=== PATIENT | male | born 1990 | race African-American/Black ===

== ENCOUNTER 2017-03-06 14:08 | Inpatient (IN) | payer MEDICARE, MEDICAID ==
--- NOTE | 2017-03-06 15:41 | ER Document Report ---
HPI - HPI Patient complains to provider of: fell and hurt right lower leg Onset: Just prior to arrival Onset/Duration: Sudden Quality of pain: Achy Pain Level: 2 Context: 27-year-old male that lives at [facility] was bending over to get the shrimp that fell on the ground and fell injuring his right lower leg. He is able to stand on the leg at the bedside. Associated Symptoms: None Exacerbated by: Walking Relieved by: Denies Similar symptoms previously: No Recently seen / treated by doctor: No - ROS ROS below otherwise negative: Yes Systems Reviewed and Negative: Yes All other systems reviewed and negative - CARDIOVASCULAR Cardiovascular: DENIES: Chest pain - REPRODUCTIVE Reproductive: DENIES: : - DERM Skin Color: Normal Past Medical History - General Information source: Patient - Social History Smoking Status: Never Smoker Chew tobacco use (# tins/day): No Frequency of alcohol use: None Drug Abuse: None Lives with: Other - [facility] Family History: Reviewed & Not Pertinent, Other Patient has suicidal ideation: No Patient has homicidal ideation: No - Past Medical History Cardiac Medical History: Reports: Hx Heart Murmur Pulmonary Medical History: Reports: Hx Pneumonia Neurological Medical History: Reports: Hx Cerebrovascular Accident - age 6, Hx Seizures Renal/ Medical History: Denies: Hx Peritoneal Dialysis Malignancy Medical History: Reports Other - Sickle cell GI Medical History: Reports: Hx Gastroesophageal Reflux Disease Psychiatric Medical History: Reports: Hx Anxiety, Hx Depression Past Surgical History: Reports: Hx Cholecystectomy, Hx Oral Surgery - reconstruction - Immunizations Immunizations up to date: Yes Hx Diphtheria, Pertussis, Tetanus Vaccination: No Hx Pneumococcal Vaccination: 08/05/12 Vertical Provider Document - CONSTITUTIONAL Agree With Documented VS: Yes Exam Limitations: No Limitations - INFECTION CONTROL TRAVEL OUTSIDE OF THE [place] IN LAST 30 DAYS: No - HEENT HEENT: Normocephalic - NECK Neck: Supple - RESPIRATORY O2 Sat by Pulse Oximetry: 94 - MUSCULOSKELETAL/EXTREMETIES Musculoskeletal/Extremeties: MAEW, FROM, Tender - Proximal right tibia. negative: Edema, Eccymosis Notes: No deformity - NEURO Level of Consciousness: Awake, Alert, Appropriate - DERM Integumentary: Warm, Dry, No Rash Course - Re-evaluation Re-evalutation: 03/06/17 16:47 X-ray is negative. His aunt called and I talked with her and said that he was okay and explained the fall and that the x-ray is negative. 03/06/17 16:47 - Vital Signs Vital signs: Temp Pulse Resp BP Pulse Ox 97.5 F 89 18 99/52 L 94 03/06/17 14:23 03/06/17 14:23 03/06/17 14:23 03/06/17 14:23 03/06/17 14:23 Discharge - Discharge Clinical Impression: right lower leg injury Condition: Good Disposition: HOME, SELF-CARE Instructions: Acetaminophen, Sprain ([facility]) Additional Instructions: to er any concerns the xray is negative Please complete the patient satisfaction survey if you get one, and return it.. If you do not receive a survey, then you can go to the [facility] website, [email or web address] and place your comments about your very good care. Thank you very much. It was a pleasure being your medical provider today. Referrals: RUMA RUTH MD [Primary Care Provider] - Follow up as needed
[2017-03-06] MEDS ORDERED: ACETAMINOPHEN 325 MG TABLET PO ONE (16:49)
[2017-03-06] MEDS ORDERED: IBUPROFEN 800 MG TABLET PO ONE (17:10)
[2017-03-06 18:54] LABS: HEMATOCRIT 18.7 % (37.9-51.0); HGB HCT DIFFERENCE 1.4; MEAN CORPUSCULAR HEMOGLOBIN 32.9 pg (27.0-33.4); MEAN CORPUSCULAR HGB CONC 35.7 g/dL (32.0-36.0); MEAN CORPUSCULAR VOLUME 92 fl (80-97); RED BLOOD COUNT 2.02 10^6/uL (4.35-5.55); RED CELL DISTRIBUTION WIDTH 25.2 % (11.5-14.0); WHITE BLOOD COUNT 22.4 10^3/uL (4.0-10.5)
[2017-03-06 19:13] LABS: ALANINE AMINOTRANSFERASE 55 U/L (21-72); ALBUMIN 4.3 g/dL (3.5-5.0); ALKALINE PHOSPHATASE 110 U/L (38-126); ANION GAP 12 (5-19); ASPARTATE AMINO TRANSFERASE 96 U/L (17-59); BILIRUBIN,DIRECT 1.6 mg/dL (0.0-0.4); BILIRUBIN,TOTAL 4.8 mg/dL (0.2-1.3); BLOOD UREA NITROGEN 18 mg/dL (7-20); CALCIUM 9.9 mg/dL (8.4-10.2); CARBON DIOXIDE 26 mmol/L (22-30); CHLORIDE 103 mmol/L (98-107); CREATININE RESULT 0.87 mg/dL (0.52-1.25); GLUCOSE 196 mg/dL (75-110); POTASSIUM 4.9 mmol/L (3.6-5.0); SODIUM 141.2 mmol/L (137-145)
[2017-03-06 19:14] LABS: BASOPHILS % (MANUAL) 0 % (0-2); EOSINOPHILS % (MANUAL) 0 % (0-6); LYMPHOCYTES % (MANUAL) 2 % (13-45); NUCLEATED RED BLOOD CELLS 1 /100 WBC (0); TOTAL CELLS COUNTED 100
[2017-03-06 19:16] LABS: ANISOCYTOSIS 2+; OVALOCYTES 2+; POIKILOCYTOSIS 3+; POLYCHROMASIA SLIGHT; TARGET CELLS 1+
[2017-03-06 19:18] LABS: HEMOGLOBIN 6.7 g/dL (13.5-17.0)
[2017-03-06] MEDS ORDERED: NORMAL SALINE 1000 ML 1,000 ML IV ONE (19:23)
[2017-03-06] MEDS ORDERED: NORMAL SALINE 250 ML IV PRN ×3 (19:24→19:49)
[2017-03-06] MEDS ORDERED: MORPHINE SULFATE 10 MG/ML INJ IV ONE ×2 (19:25→23:59)
[2017-03-06] MEDS ORDERED: LEVOFLOXACIN 500 MG/D5W RTU 500 MG/100 ML RTUPB IV ONE (23:00)
[2017-03-06] MEDS ORDERED: CEFEPIME INJ 1 GM VIAL IV PRN (23:30)
[2017-03-07] MEDS: OXYCODONE-ACETAMINOPHEN 5-325 MG TABLET PO PRN ×3 (05:46→21:21)
[2017-03-07] MEDS: LANSOPRAZOLE 30 MG TAB.RAP.DR PO SCH (05:46)
[2017-03-07] MEDS: ENOXAPARIN SODIUM INJ 40 MG/0.4 ML DISP.SYRIN SUBCUT SCH (08:21)
[2017-03-07] MEDS: CEFEPIME 1 GM/D5W RTU 1 GM/50 ML RTUPB IV SCH ×2 (09:10→21:22)
[2017-03-07 10:20] LABS: APPEARANCE,URINE CLEAR; BILIRUBIN,URINE NEGATIVE (NEGATIVE); GLUCOSE, URINE NEGATIVE (NEGATIVE); KETONES,URINE NEGATIVE (NEGATIVE); LEUKOCYTE ESTERASE,URINE NEGATIVE (NEGATIVE); NITRITE,URINE NEGATIVE (NEGATIVE); PROTEIN,URINE 30 mg/dL (NEGATIVE); URINE SPECIFIC GRAVITY 1.009; UROBILINOGEN,URINE NEGATIVE mg/dL (<2.0)
--- NOTE | 2017-03-07 10:39 | PDOC H&P ---
History of Present Illness Admission Date/PCP: 03/06/17 19:45 RUMA RUTH MD Patient complains of: Fall with right leg injury History of Present Illness: EMIL BARNES is a 27 year old male patient of Dr Ruth brought to the ED after incident of fall will trying to get shrimp at [facility]. Patient caregiver reported difficulty with standing on the right leg due to pain. His initial evaluation in the ED with radiographic assessment was not revealing of any acute fracture but patient continue to demonstrate ambulatory difficulty. His CBC revealed significant anemia with hemoglobin of . 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 Past Medical History Cardiac Medical History: Reports: Heart Murmur Pulmonary Medical History: Reports: Pneumonia Neurological Medical History: Reports: Seizures Malignancy Medical History: Reports: Other - Sickle cell GI Medical History: Reports: Gastroesophageal Reflux Disease Psychiatric Medical History: Reports: Depression Hematology: Reports: Anemia - Sickle Cell, Sickle Cell Disease, Bleeding Tendencies Denies: Hemophilia Past Surgical History Past Surgical History: Reports: Cholecystectomy Denies: Appendectomy, Tonsillectomy Social History Lives with: Other - [facility] Smoking Status: Never Smoker Frequency of Alcohol Use: None Hx Recreational Drug Use: No Drugs: None Hx Prescription Drug Abuse: No Family History Family History: Reviewed & Not Pertinent, Other Parental Family History Reviewed: Yes Children Family History Reviewed: Yes Sibling(s) Family History Reviewed.: Yes Medication/Allergy Home Medications: No Home Medications 03/07/17 Allergies/Adverse Reactions: No Known Drug Allergies Allergy (Unknown, Verified 04/02/15 13:14) mayonaise Allergy (Uncoded 02/17/14 09:13) Physical Exam Vital Signs: Temp Pulse Resp BP Pulse Ox 97.5 F 89 18 99/52 L 96 03/06/17 14:23 03/06/17 14:23 03/06/17 14:23 03/06/17 14:23 03/06/17 20:50 General appearance: PRESENT: no acute distress, cooperative, disheveled Head exam: PRESENT: atraumatic, normocephalic Eye exam: PRESENT: conjunctiva pink, EOMI, PERRLA. ABSENT: scleral icterus Ear exam: PRESENT: normal external ear exam Mouth exam: PRESENT: moist Teeth exam: PRESENT: dental caries, poor dentation Throat exam: ABSENT: post pharyngeal erythema, tonsillar erythema, tonsillar exudate, tonsillogmegaly, other Neck exam: PRESENT: full ROM. ABSENT: carotid bruit, JVD, lymphadenopathy, thyromegaly Respiratory exam: PRESENT: clear to auscultation ishan Cardiovascular exam: PRESENT: RRR. ABSENT: diastolic murmur, rubs, systolic murmur Pulses: PRESENT: normal dorsalis pedis pul, +2 pedal pulses bilateral Vascular exam: PRESENT: normal capillary refill GI/Abdominal exam: PRESENT: normal bowel sounds, soft. ABSENT: distended, guarding, mass, organolmegaly, rebound, tenderness Rectal exam: PRESENT: deferred Musculoskeletal exam: PRESENT: deformity - left extremities, related to CVA incident with some degree of contrature deformity Neurological exam: PRESENT: alert, awake, oriented to situation, abnormal gait - with inability to stand and walk at bedside during ED evaluation, CN II-XII grossly intact, motor sensory deficit Psychiatric exam: PRESENT: appropriate affect, normal mood. ABSENT: homicidal ideation, suicidal ideation Skin exam: PRESENT: dry, intact, warm. ABSENT: cyanosis, rash Results Laboratory Results: See [facility] for details. These were reviewed and form significant aspect of my medical decision making. Impressions: Tibia/Fibula X-Ray 03/06/17 15:39 IMPRESSION: NEGATIVE STUDY OF THE RIGHT TIBIA AND FIBULA. NO RADIOGRAPHIC EVIDENCE OF ACUTE INJURY. Femur X-Ray 03/06/17 17:10 IMPRESSION: NEGATIVE STUDY OF THE RIGHT FEMUR. NO RADIOGRAPHIC EVIDENCE OF ACUTE INJURY. Pelvis X-Ray 03/06/17 17:10 IMPRESSION: NEGATIVE STUDY OF THE PELVIS. Assessment & Plan - Diagnosis (1) Sickle cell hemolytic anemia Qualifiers: Sickle-cell associated disorders: with unspecified crisis Qualified Code(s): D57.00 - Hb-SS disease with crisis, unspecified; D57.0 - Hb-SS disease with crisis Is this a current diagnosis for this admission?: YesPlan: See covering admitting physician orders. Patient will be transfused 3 units of PRBC. (2) Fall due to stumbling Qualifiers: Encounter type: initial encounter Qualified Code(s): W01.0XXA - Fall on same level from slipping, tripping and stumbling without subsequent striking against object, initial encounter Is this a current diagnosis for this admission?: YesPlan: See covering admitting physician orders. (3) Unsteady gait Is this a current diagnosis for this admission?: YesPlan: See covering admitting physician orders. (4) History of seizure disorder Is this a current diagnosis for this admission?: YesPlan: Continue pre-admission seizure medication with seizure precautions. (5) History of CVA with residual deficit Is this a current diagnosis for this admission?: YesPlan: Continue pre-admission seizure medication with seizure precautions. (6) Sickle-cell disease with pain Is this a current diagnosis for this admission?: YesPlan: See covering admitting physician orders. Patient will be on oral pain medication management. If this approach is not adequately controlling his pain I will consider intravenous pain medication administration. - Time Time Spent: 50 to 70 Minutes Medications reviewed and adjusted accordingly: Yes Anticipated discharge: Other - [facility] Within: Other - Inpatient Certification Based on my medical assessment, after consideration of the patient's comorbidities, presenting symptoms, or acuity I expect that the services needed warrant INPATIENT care.: Yes I certify that my determination is in accordance with my understanding of Medicare's requirements for reasonable and necessary INPATIENT services [42 CFR 412.3e].: Yes Medical Necessity: Need Close Monitoring Due to Risk of Patient Decompensation, Need For IV Fluids, Need For Continuous Telemetry Monitoring, Need for IV Antibiotics, Risk of Complication if Not Cared For in Hospital Post Hospital Care: D/C or Transfer Summary - Plan Summary Plan Summary: See covering admitting physician orders.
--- NOTE | 2017-03-07 10:48 | PDOC PROGRESS REPORT ---
Subjective Progress Note for:: 03/07/17 Subjective:: Patient denied any chest pain or difficulty with breathing. On second unit of PRBC transfusion. No reported fever or chills. Pain is fairly controlled on current medication management. Patient reported that he can walk! Remain on IV Cefepime and Levofloxacin management due to concern about occult infection process. Physical Exam Vital Signs: Temp Pulse Resp BP Pulse Ox 99.3 F 85 18 124/74 98 03/07/17 10:26 03/07/17 10:26 03/07/17 10:26 03/07/17 10:26 03/07/17 10:26 Intake & Output 03/06/17 03/07/17 03/08/17 06:59 06:59 06:59 Intake Total 580 400 Output Total 0 Balance 580 400 Weight 60.8 kg Physical Exam: General appearance: PRESENT: no acute distress, cooperative, disheveled Head exam: PRESENT: atraumatic, normocephalic Eye exam: PRESENT: conjunctiva pink, EOMI, PERRLA. ABSENT: scleral icterus Mouth exam: PRESENT: moist Throat exam: ABSENT: post pharyngeal erythema, tonsillar erythema, tonsillar exudate, tonsillogmegaly, other Neck exam: PRESENT: full ROM. ABSENT: carotid bruit, JVD, lymphadenopathy, thyromegaly Respiratory exam: PRESENT: clear to auscultation ishan Cardiovascular exam: PRESENT: RRR. ABSENT: diastolic murmur, rubs, systolic murmur GI/Abdominal exam: PRESENT: normal bowel sounds, soft. ABSENT: distended, guarding, mass, organomegaly, rebound, tenderness Musculoskeletal exam: PRESENT: deformity - left extremities, related to CVA incident with some degree of contrature deformity Neurological exam: PRESENT: alert, awake, oriented to situation, abnormal gait - with inability to stand and walk at bedside during ED evaluation, CN II-XII grossly intact, motor sensory deficit Psychiatric exam: PRESENT: appropriate affect, normal mood. ABSENT: homicidal ideation, suicidal ideation Skin exam: PRESENT: dry, intact, warm. ABSENT: cyanosis, rash Results Laboratory Results: 03/07/17 09:45 Urine Color YELLOW Urine Appearance CLEAR Urine pH 6.0 Ur Specific [place] 1.009 Urine Protein 30 H Urine Glucose (UA) NEGATIVE Urine Ketones NEGATIVE Urine Blood MODERATE H Urine Nitrite NEGATIVE Ur Leukocyte Esterase NEGATIVE Urine WBC (Auto) 2 Urine RBC (Auto) 0 Impressions: Tibia/Fibula X-Ray 03/06/17 15:39 IMPRESSION: NEGATIVE STUDY OF THE RIGHT TIBIA AND FIBULA. NO RADIOGRAPHIC EVIDENCE OF ACUTE INJURY. Femur X-Ray 03/06/17 17:10 IMPRESSION: NEGATIVE STUDY OF THE RIGHT FEMUR. NO RADIOGRAPHIC EVIDENCE OF ACUTE INJURY. Pelvis X-Ray 03/06/17 17:10 IMPRESSION: NEGATIVE STUDY OF THE PELVIS. Assessment & Plan - Diagnosis (1) Sickle cell hemolytic anemia Qualifiers: Sickle-cell associated disorders: with unspecified crisis Qualified Code(s): D57.00 - Hb-SS disease with crisis, unspecified; D57.0 - Hb-SS disease with crisis Is this a current diagnosis for this admission?: Yes (2) Fall due to stumbling Qualifiers: Encounter type: initial encounter Qualified Code(s): W01.0XXA - Fall on same level from slipping, tripping and stumbling without subsequent striking against object, initial encounter Is this a current diagnosis for this admission?: Yes (3) Unsteady gait Is this a current diagnosis for this admission?: YesPlan: Request for physical therapy evaluation for ambulatory safety. (4) History of seizure disorder Is this a current diagnosis for this admission?: Yes (5) History of CVA with residual deficit Is this a current diagnosis for this admission?: Yes (6) Sickle-cell disease with pain Is this a current diagnosis for this admission?: Yes (7) Probable sepsis Is this a current diagnosis for this admission?: YesPlan: Continue IV Cefepime and Levofloxacin coverage. Follow up on urine and blood culture findings. - Time Time Spent with patient: 25-34 minutes Medications reviewed and adjusted accordingly: Yes Anticipated discharge: Other Within: Other - Inpatient Certification Medical Necessity: Need Close Monitoring Due to Risk of Patient Decompensation, Need For IV Fluids, Need For Continuous Telemetry Monitoring, Need for Pain Control, Need for IV Antibiotics, Risk of Complication if Not Cared For in Hospital Post Hospital Care: D/C or Transfer Summary - Plan Summary Plan Summary: Follow up on post transfusion CBC.
[2017-03-07 12:23] LABS: HEMATOCRIT 28.7 % (37.9-51.0); HGB HCT DIFFERENCE 1.9; MEAN CORPUSCULAR HEMOGLOBIN 31.3 pg (27.0-33.4); MEAN CORPUSCULAR HGB CONC 35.6 g/dL (32.0-36.0); RED BLOOD COUNT 3.26 10^6/uL (4.35-5.55); RED CELL DISTRIBUTION WIDTH 21.3 % (11.5-14.0); WHITE BLOOD COUNT 19.2 10^3/uL (4.0-10.5)
[2017-03-07 12:33] LABS: ALANINE AMINOTRANSFERASE 57 U/L (21-72); ALBUMIN 4.5 g/dL (3.5-5.0); ALKALINE PHOSPHATASE 97 U/L (38-126); ANION GAP 13 (5-19); ASPARTATE AMINO TRANSFERASE 86 U/L (17-59); BILIRUBIN,DIRECT 1.3 mg/dL (0.0-0.4); BILIRUBIN,TOTAL 5.2 mg/dL (0.2-1.3); BLOOD UREA NITROGEN 15 mg/dL (7-20); CARBON DIOXIDE 24 mmol/L (22-30); CHLORIDE 103 mmol/L (98-107); CREATININE RESULT 0.89 mg/dL (0.52-1.25); GLUCOSE 110 mg/dL (75-110); POTASSIUM 5.3 mmol/L (3.6-5.0); TOTAL PROTEIN 7.9 g/dL (6.3-8.2)
[2017-03-07 12:35] LABS: BASOPHILS % (MANUAL) 0 % (0-2); EOSINOPHILS % (MANUAL) 1 % (0-6); LYMPHOCYTES % (MANUAL) 13 % (13-45); TOTAL CELLS COUNTED 100
[2017-03-07 12:38] LABS: ANISOCYTOSIS 2+; HELMET CELLS SLIGHT; HOWELL-JOLLY BODIES PRESENT; OVALOCYTES 2+; POIKILOCYTOSIS 3+; POLYCHROMASIA SLIGHT; TARGET CELLS SLIGHT
[2017-03-07 12:40] LABS: HEMOGLOBIN 10.2 g/dL (13.5-17.0); MEAN CORPUSCULAR VOLUME 88 fl (80-97)
[2017-03-07] MEDS: NORMAL SALINE 1000 ML 1,000 ML IV PRN (14:01)
[2017-03-07 16:00] LABS: HEMOGLOBIN 10.5 g/dL (13.5-17.0); HGB HCT DIFFERENCE 1.5; MEAN CORPUSCULAR HEMOGLOBIN 30.7 pg (27.0-33.4); MEAN CORPUSCULAR HGB CONC 34.9 g/dL (32.0-36.0); MEAN CORPUSCULAR VOLUME 88 fl (80-97); RED BLOOD COUNT 3.42 10^6/uL (4.35-5.55); RED CELL DISTRIBUTION WIDTH 21.2 % (11.5-14.0); WHITE BLOOD COUNT 19.1 10^3/uL (4.0-10.5)
[2017-03-07 16:21] LABS: BASOPHILS % (MANUAL) 1 % (0-2); EOSINOPHILS % (MANUAL) 0 % (0-6); LYMPHOCYTES % (MANUAL) 8 % (13-45); NUCLEATED RED BLOOD CELLS 4 /100 WBC (0); TOTAL CELLS COUNTED 100
[2017-03-07 16:22] LABS: ANISOCYTOSIS 2+; OVALOCYTES 2+; POIKILOCYTOSIS 3+
[2017-03-07 16:23] LABS: HELMET CELLS SLIGHT; HOWELL-JOLLY BODIES PRESENT; POLYCHROMASIA SLIGHT; TARGET CELLS SLIGHT
[2017-03-07] MEDS ORDERED: LEVOFLOXACIN 500 MG/D5W RTU 500 MG/100 ML RTUPB IV SCH (22:00)
[2017-03-08] MEDS: NORMAL SALINE 1000 ML 1,000 ML IV PRN ×2 (02:36→13:36)
[2017-03-08] MEDS: LANSOPRAZOLE 30 MG TAB.RAP.DR PO SCH (06:02)
[2017-03-08] MEDS: ENOXAPARIN SODIUM INJ 40 MG/0.4 ML DISP.SYRIN SUBCUT SCH (08:14)
[2017-03-08] MEDS: CEFEPIME 1 GM/D5W RTU 1 GM/50 ML RTUPB IV SCH ×2 (09:49→21:52)
[2017-03-08] MEDS: OXYCODONE-ACETAMINOPHEN 5-325 MG TABLET PO PRN ×3 (09:53→19:46)
--- NOTE | 2017-03-08 19:17 | PDOC PROGRESS REPORT ---
Subjective Progress Note for:: 03/08/17 Subjective:: He was admitted because of severe anemia in the setting of sickle cell disease, he apparently could not stand on his right leg, he was seen by the bedside examine ,he is tender on the right knee area, MRI of the knee will be requested Physical Exam Vital Signs: Temp Pulse Resp BP Pulse Ox 98.3 F 97 18 129/71 H 96 03/08/17 16:40 03/08/17 16:40 03/08/17 16:40 03/08/17 16:40 03/08/17 16:40 Intake & Output 03/07/17 03/08/17 03/09/17 06:59 06:59 06:59 Intake Total 3806 474 Output Total 1300 600 Balance 2506 -126 General appearance: PRESENT: no acute distress Eye exam: PRESENT: PERRLA Respiratory exam: PRESENT: clear to auscultation ishan Cardiovascular exam: PRESENT: +S1, +S2 GI/Abdominal exam: PRESENT: soft Results Laboratory Results: 03/07/17 15:50 03/07/17 12:05 Impressions: Tibia/Fibula X-Ray 03/06/17 15:39 IMPRESSION: NEGATIVE STUDY OF THE RIGHT TIBIA AND FIBULA. NO RADIOGRAPHIC EVIDENCE OF ACUTE INJURY. Femur X-Ray 03/06/17 17:10 IMPRESSION: NEGATIVE STUDY OF THE RIGHT FEMUR. NO RADIOGRAPHIC EVIDENCE OF ACUTE INJURY. Pelvis X-Ray 03/06/17 17:10 IMPRESSION: NEGATIVE STUDY OF THE PELVIS. Chest X-Ray 03/07/17 00:00 IMPRESSION: NO SIGNIFICANT RADIOGRAPHIC FINDING IN THE CHEST. Assessment & Plan - Diagnosis (1) Fall due to stumbling Qualifiers: Encounter type: initial encounter Qualified Code(s): W01.0XXA - Fall on same level from slipping, tripping and stumbling without subsequent striking against object, initial encounter Is this a current diagnosis for this admission?: Yes (2) Hemolytic anemia Qualifiers: Hemolytic anemia type: other hemoglobinopathy Qualified Code(s): D58.2 - Other hemoglobinopathies Is this a current diagnosis for this admission?: Yes (3) Sickle cell anemia Qualifiers: Sickle-cell associated disorders: with unspecified crisis Qualified Code(s): D57.00 - Hb-SS disease with crisis, unspecified; D57.0 - Hb-SS disease with crisis Is this a current diagnosis for this admission?: Yes
[2017-03-08] MEDS: LEVOFLOXACIN 500 MG TABLET PO SCH (21:52)
[2017-03-09] MEDS: LANSOPRAZOLE 30 MG TAB.RAP.DR PO SCH (05:06)
[2017-03-09] MEDS: OXYCODONE-ACETAMINOPHEN 5-325 MG TABLET PO PRN ×3 (06:48→22:05)
[2017-03-09] MEDS: ENOXAPARIN SODIUM INJ 40 MG/0.4 ML DISP.SYRIN SUBCUT SCH (09:35)
[2017-03-09] MEDS: CEFEPIME 1 GM/D5W RTU 1 GM/50 ML RTUPB IV SCH ×2 (09:36→22:05)
[2017-03-09] MEDS: NORMAL SALINE 1000 ML 1,000 ML IV PRN (17:58)
[2017-03-09] MEDS: LEVOFLOXACIN 500 MG TABLET PO SCH (22:05)
[2017-03-10] MEDS: OXYCODONE-ACETAMINOPHEN 5-325 MG TABLET PO PRN (03:25)
[2017-03-10] MEDS: LANSOPRAZOLE 30 MG TAB.RAP.DR PO SCH (04:59)
[2017-03-10] MEDS: NORMAL SALINE 1000 ML 1,000 ML IV PRN ×2 (04:59→16:02)
[2017-03-10] MEDS: ENOXAPARIN SODIUM INJ 40 MG/0.4 ML DISP.SYRIN SUBCUT SCH (08:00)
[2017-03-10] MEDS: CEFEPIME 1 GM/D5W RTU 1 GM/50 ML RTUPB IV SCH ×2 (09:40→21:09)
--- NOTE | 2017-03-10 16:26 | PDOC DISCHARGE SUMMARY ---
General - Admit/Disc Date/PCP Admission Date/Primary Care Provider: 03/07/17 10:48 RUMA RUTH MD Discharge Date: 03/10/17 - Discharge Diagnosis (1) Fall due to stumbling Is this a current diagnosis for this admission?: Yes (2) Hemolytic anemia Is this a current diagnosis for this admission?: Yes (3) Sickle cell anemia Is this a current diagnosis for this admission?: Yes - Additional Information Resuscitation Status: Full Code Discharge Diet: As Tolerated Discharge Activity: Activity As Tolerated Home Medications: No Home Medications 03/07/17 History of Present Illness History of Present Illness: EMIL BARNES is a 27 year old male he presented to the hospital because of difficulty standing and knee pain on it was found to have severe anemia in the setting of sickle cell disease Hospital Course Hospital Course: He was transfused with packed red blood cells because of severe anemia, MRI of the leg and the knee was done it was negative Physical Exam Vital Signs: Temp Pulse Resp BP Pulse Ox 97.3 F 79 15 112/68 100 03/10/17 12:06 03/10/17 12:06 03/10/17 12:06 03/10/17 12:06 03/10/17 12:06 Intake & Output 03/09/17 03/10/17 03/11/17 06:59 06:59 06:59 Intake Total 3504 2963 420 Output Total 1625 1425 400 Balance 1879 1538 20 General appearance: PRESENT: no acute distress Eye exam: PRESENT: PERRLA Respiratory exam: PRESENT: clear to auscultation ishan Cardiovascular exam: PRESENT: +S1, +S2 GI/Abdominal exam: PRESENT: soft Neurological exam: PRESENT: alert Results Laboratory Results: 03/07/17 15:50 03/07/17 12:05 Impressions: Tibia/Fibula X-Ray 03/06/17 15:39 IMPRESSION: NEGATIVE STUDY OF THE RIGHT TIBIA AND FIBULA. NO RADIOGRAPHIC EVIDENCE OF ACUTE INJURY. Femur X-Ray 03/06/17 17:10 IMPRESSION: NEGATIVE STUDY OF THE RIGHT FEMUR. NO RADIOGRAPHIC EVIDENCE OF ACUTE INJURY. Pelvis X-Ray 03/06/17 17:10 IMPRESSION: NEGATIVE STUDY OF THE PELVIS. Chest X-Ray 03/07/17 00:00 IMPRESSION: NO SIGNIFICANT RADIOGRAPHIC FINDING IN THE CHEST. Lower Extremity MRI 03/08/17 20:45 IMPRESSION: No acute or suspicious findings. Bone marrow reconversion consistent with Sickle Cell Anemia.
--- NOTE | 2017-03-10 16:35 | PDOC DISCHARGE SUMMARY ---
General - Admit/Disc Date/PCP Admission Date/Primary Care Provider: 03/07/17 10:48 RUMA RUTH MD Discharge Date: 03/10/17 - Discharge Diagnosis (1) Hemolytic anemia Is this a current diagnosis for this admission?: Yes (2) Fall due to stumbling Is this a current diagnosis for this admission?: Yes (3) Sickle cell anemia Is this a current diagnosis for this admission?: Yes (4) Leukocytosis (leucocytosis) Is this a current diagnosis for this admission?: Yes - Additional Information Resuscitation Status: Full Code Discharge Diet: As Tolerated Discharge Activity: Activity As Tolerated Home Medications: Aspirin [Ecotrin 81 mg EC Tablet] 81 mg PO QID 03/10/17 Cholecalciferol (Vitamin D3) [Vitamin D3] 1,000 unit PO DAILY 03/10/17 Deferasirox [Exjade] 1,500 mg PO DAILY 03/10/17 Folic Acid 1 mg PO DAILY 03/10/17 Hydroxyurea [Hydroxyurea] 500 mg PO DAILY 03/10/17 Levetiracetam [Keppra] 1,000 mg PO BID 03/10/17 Magnesium Oxide 800 mg PO DAILY 03/10/17 Tamsulosin HCl [Tamsulosin HCl] 0.4 mg PO DAILY 03/10/17 History of Present Illness History of Present Illness: EMIL BARNES is a 27 year old male he presented to the hospital because of difficulty standing and knee pain on it was found to have severe anemia in the setting of sickle cell disease Hospital Course Hospital Course: He came emergency room from assisted living facility because he has pain on standing he was found to be anemic with leukocytosis, the source of the leukocytosis is not clear, he was empirically treated with IV antibiotic for presumed infection, no pathogen was isolated he also complained of pain in the leg and MRI of the leg was done which was negative. He was transfused with 2 units of packed red blood cells on admission hemoglobin was 6000. He had leukocytosis, he was treated empirically with IV antibiotic it was assumed that the etiology of the leukocytosis is infection, no specific pathogen was identified during the course of hospital stay, but the leukocytosis improved and is now normal white cell on discharge. Physical Exam Vital Signs: Temp Pulse Resp BP Pulse Ox 97.9 F 83 16 122/67 100 03/10/17 16:02 03/10/17 16:02 03/10/17 16:02 03/10/17 16:02 03/10/17 16:02 Intake & Output 03/09/17 03/10/17 03/11/17 06:59 06:59 06:59 Intake Total 3504 2963 420 Output Total 1625 1425 400 Balance 1879 1538 20 General appearance: PRESENT: no acute distress Eye exam: PRESENT: PERRLA Respiratory exam: PRESENT: clear to auscultation ishan Cardiovascular exam: PRESENT: +S1, +S2 GI/Abdominal exam: PRESENT: soft Neurological exam: PRESENT: alert Results Laboratory Results: 03/07/17 15:50 03/07/17 12:05 Impressions: Tibia/Fibula X-Ray 03/06/17 15:39 IMPRESSION: NEGATIVE STUDY OF THE RIGHT TIBIA AND FIBULA. NO RADIOGRAPHIC EVIDENCE OF ACUTE INJURY. Femur X-Ray 03/06/17 17:10 IMPRESSION: NEGATIVE STUDY OF THE RIGHT FEMUR. NO RADIOGRAPHIC EVIDENCE OF ACUTE INJURY. Pelvis X-Ray 03/06/17 17:10 IMPRESSION: NEGATIVE STUDY OF THE PELVIS. Chest X-Ray 03/07/17 00:00 IMPRESSION: NO SIGNIFICANT RADIOGRAPHIC FINDING IN THE CHEST. Lower Extremity MRI 03/08/17 20:45 IMPRESSION: No acute or suspicious findings. Bone marrow reconversion consistent with Sickle Cell Anemia.
[2017-03-10 17:38] LABS: ABSOLUTE EOSINOPHILS # (AUTO) 0.4 10^3/uL (0.0-0.6); ABSOLUTE LYMPHOCYTES (AUTO) 1.4 10^3/uL (0.5-4.7); ABSOLUTE NEUT (AUTO) 8.2 10^3/uL (1.7-8.2); BASOPHILS % (AUTO) 0.3 % (0-2); HEMATOCRIT 24.2 % (37.9-51.0); HEMOGLOBIN 8.1 g/dL (13.5-17.0); HGB HCT DIFFERENCE 0.1; LYMPHOCYTES % (AUTO) 11.8 % (13-45); MEAN CORPUSCULAR HEMOGLOBIN 31.3 pg (27.0-33.4); MEAN CORPUSCULAR HGB CONC 33.5 g/dL (32.0-36.0); MONOCYTES % (AUTO) 16.4 % (3-13); RED BLOOD COUNT 2.59 10^6/uL (4.35-5.55); RED CELL DISTRIBUTION WIDTH 20.7 % (11.5-14.0); SEGMENTED NEUTROPHILS % (AUTO) 68.5 % (42-78); WHITE BLOOD COUNT 11.9 10^3/uL (4.0-10.5)
[2017-03-10 17:59] LABS: ALANINE AMINOTRANSFERASE 48 U/L (21-72); ALBUMIN 3.1 g/dL (3.5-5.0); ALKALINE PHOSPHATASE 89 U/L (38-126); ANION GAP 9 (5-19); ASPARTATE AMINO TRANSFERASE 52 U/L (17-59); BILIRUBIN,DIRECT 1.1 mg/dL (0.0-0.4); BILIRUBIN,TOTAL 2.9 mg/dL (0.2-1.3); BLOOD UREA NITROGEN 15 mg/dL (7-20); CARBON DIOXIDE 25 mmol/L (22-30); CHLORIDE 112 mmol/L (98-107); CREATININE RESULT 0.59 mg/dL (0.52-1.25); GLUCOSE 97 mg/dL (75-110); POTASSIUM 4.1 mmol/L (3.6-5.0); SODIUM 145.7 mmol/L (137-145); TOTAL PROTEIN 6.1 g/dL (6.3-8.2)
[2017-03-10 18:09] LABS: MEAN CORPUSCULAR VOLUME 94 fl (80-97)
[2017-03-10] MEDS: LEVOFLOXACIN 500 MG TABLET PO SCH (21:08)
[2017-03-11] MEDS: NORMAL SALINE 1000 ML 1,000 ML IV PRN (03:00)
[2017-03-11] MEDS: LANSOPRAZOLE 30 MG TAB.RAP.DR PO SCH (05:15)
[2017-03-11] MEDS: ENOXAPARIN SODIUM INJ 40 MG/0.4 ML DISP.SYRIN SUBCUT SCH (07:45)
[2017-03-11 08:02] VITALS: BP 106/60
[2017-03-11] MEDS: OXYCODONE-ACETAMINOPHEN 5-325 MG TABLET PO PRN (08:20)
[2017-03-11] MEDS: CEFEPIME 1 GM/D5W RTU 1 GM/50 ML RTUPB IV SCH (09:15)
== END 2017-03-11 10:36 | DRG 812 ==
LOC: ER 14:08 → EH 19:45 → UNDOADMOB 19:45 → EH 20:04 → 5 22:10 → OBSVTOIN 03-07 10:48
PROVIDERS: ADMIT Internal Medicine; ATTEND Internal Medicine
PROC: 30233N1 Transfusion of Nonautologous Red Blood Cells into Peripheral Vein, Percutaneous Approach (ICD-10-PCS; principal; 2017-03-07)
DX: D57.00 Hb-SS disease with crisis, unspecified (principal); I69.354 Hemiplegia and hemiparesis following cerebral infarction affecting left non-dominant side; G40.909 Epilepsy, unspecified, not intractable, without status epilepticus; D59.9 Acquired hemolytic anemia, unspecified; F79 Unspecified intellectual disabilities; D58.9 Hereditary hemolytic anemia, unspecified; K21.9 Gastro-esophageal reflux disease without esophagitis; F32.9 Major depressive disorder, single episode, unspecified; Z90.49 Acquired absence of other specified parts of digestive tract; R26.81 Unsteadiness on feet; S89.91XA Unspecified injury of right lower leg, initial encounter; W18.30XA Fall on same level, unspecified, initial encounter; Z91.018 Allergy to other foods; D72.829 Elevated white blood cell count, unspecified; Y92.129 Unspecified place in nursing home as the place of occurrence of the external cause
CPT/HCPCS: 36415; 36430; 71020; 72170; 80053; 81001; 82553; 85025; 85045; 86850; 86900; 86901; 86920; 87040; 99285; G0378; G8978-GP; G8979-GP; J0692; J1650; J1956; J2270; J7030; P9016

== ENCOUNTER 2017-03-14 20:07 | Inpatient (IN) | payer MEDICARE, MEDICAID ==
[2017-03-14] MEDS ORDERED: NORMAL SALINE 1000 ML 1,000 ML IV ONE (20:31)
[2017-03-14] MEDS ORDERED: CEFEPIME 2 GM/D5W RTU 50 ML IV ONE (20:35)
--- NOTE | 2017-03-14 20:35 | ER Document Report ---
ED General - General Chief Complaint: Thigh Pain Stated Complaint: FALL,THIGH PAIN Time Seen by Provider: 03/14/17 20:21 Cannot obtain history due to: Mentally challenged Notes: Patient is a 27-year-old male past medical history of MR, sickle cell anemia, recently discharged from the hospital due to inability to complete secondary to pain in the right lower extremity and associated pain crisis who presents with refusal to eat or drink over the past 3 days, decreased energy, and refused to walk on his right lower extremity. The family notes that he has never been willing to walk on right lower extremity ever since being discharged from the hospital. Parents state "he just appears so weak". Patient himself has minimal verbal content does not provide any meaningful history. TRAVEL OUTSIDE OF THE [place] IN LAST 30 DAYS: No - Related Data Allergies/Adverse Reactions: No Known Drug Allergies Allergy (Unknown, Verified 04/02/15 13:14) mayonaise Allergy (Uncoded 02/17/14 09:13) Past Medical History - General Information source: Parent - Social History Smoking Status: Unknown if Ever Smoked Frequency of alcohol use: None Drug Abuse: None Lives with: Other - [facility] Family History: Reviewed & Not Pertinent, Other - Past Medical History Cardiac Medical History: Reports: Hx Heart Murmur Pulmonary Medical History: Reports: Hx Pneumonia Neurological Medical History: Reports: Hx Cerebrovascular Accident - age 6, Hx Seizures Renal/ Medical History: Denies: Hx Peritoneal Dialysis GI Medical History: Reports: Hx Gastroesophageal Reflux Disease Psychiatric Medical History: Reports: Hx Anxiety, Hx Depression Past Surgical History: Reports: Hx Cholecystectomy, Hx Oral Surgery - reconstruction. Denies: Hx Appendectomy, Hx Bowel Surgery, Hx Tonsillectomy - Immunizations Immunizations up to date: Yes Hx Diphtheria, Pertussis, Tetanus Vaccination: Yes Hx Pneumococcal Vaccination: 08/05/12 Review of Systems - Review of Systems -: Yes ROS unobtainable due to patient's medical condition Physical Exam - Vital signs Vitals: Temp Pulse Resp BP Pulse Ox 97.7 F 129 H 18 106/54 L 97 03/14/17 20:14 03/14/17 20:14 03/14/17 20:14 03/14/17 20:14 03/14/17 20:14 Interpretation: Tachycardic Notes: PHYSICAL EXAMINATION: GENERAL: Appears chronically ill and frail but in no acute distress HEAD: Atraumatic, normocephalic. EYES: Pupils equal round and reactive to light, extraocular movements intact, sclera anicteric, conjunctiva are normal. ENT: nares patent, oropharynx clear without exudates. Very dry mucous membranes. NECK: Normal range of motion, supple without lymphadenopathy LUNGS: Breath sounds clear to auscultation bilaterally and equal. No wheezes rales or rhonchi. HEART: Regular tachycardia without murmurs ABDOMEN: Soft, nontender, normoactive bowel sounds. No guarding, no rebound. No masses appreciated. EXTREMITIES: Spontaneously moves all extremities although unable to understand request for complete range of motion testing, no pitting or edema. No cyanosis. NEUROLOGICAL: No focal neurological deficits. Moves all extremities spontaneously and on command. PSYCH: Minimal to no verbal content SKIN: Warm, Dry, normal turgor, no rashes or lesions noted. Course - Re-evaluation Re-evalutation: 03/14/17 20:32 Patient presents ill in appearance, no acute distress very hot to touch with a prominent tachycardia at 130. Parents state that both his lower extremity is are larger than they tend to be a would not see any overt edema or cellulitis to the area. He has no focal abdominal tenderness. Blush sounds are clear. He has dry mucous membranes. Primary concern at this point would be for an occult infection either pneumonia versus urinary based on recent hospitalization. Also obtain a bilateral lower extremity ultrasound to evaluate for a DVT bilaterally although I think this is unlikely. Patient did have an MRI of the right lower extremity during his hospitalization on 03/09 which was normal. 03/15/17 00:08 Unfortunately ultrasound of the bilateral lower extremity cannot be obtained as vascular ultrasound was not available. Laboratories and start a prominent leukocytosis, anemia, and acute kidney dysfunction which was not present patient was discharged. His urine is extremely dark but his CK is only mildly elevated. Cultures have been sent. Empiric antibiotics have been initiated. I discussed this case with Dr. Fam who has admitted the patient. - Vital Signs Vital signs: Temp Pulse Resp BP Pulse Ox 101.6 F H 129 H 18 107/59 L 100 03/14/17 20:34 03/14/17 20:14 03/15/17 02:01 03/15/17 02:01 03/15/17 02:01 - Laboratory Result Diagrams: 03/14/17 21:02 03/14/17 21:02 Laboratory results interpreted by me: 03/14/17 03/14/17 03/14/17 21:02 21:02 21:02 WBC 27.5 H RBC 2.20 L Hgb 6.6 L Hct 20.0 L RDW 17.2 H Seg Neuts % (Manual) 79 H Lymphocytes % (Manual) 7 L Monocytes % (Manual) 14 H Abs Neuts (Manual) 21.7 H Abs Monocytes (Manual) 3.9 H VBG pH 7.43 H Sodium 134.7 L BUN 54 H Creatinine 1.91 H Est GFR ( Amer) 51 L Est GFR (Non-Af Amer) 42 L Glucose 134 H Total Bilirubin 4.2 H Direct Bilirubin 2.6 H Creatine Kinase Albumin 2.9 L Urine Protein Urine Blood 03/14/17 03/14/17 21:02 23:14 WBC RBC Hgb Hct RDW Seg Neuts % (Manual) Lymphocytes % (Manual) Monocytes % (Manual) Abs Neuts (Manual) Abs Monocytes (Manual) VBG pH Sodium BUN Creatinine Est GFR ( Amer) Est GFR (Non-Af Amer) Glucose Total Bilirubin Direct Bilirubin Creatine Kinase 332 H Albumin Urine Protein 30 H Urine Blood SMALL H - Diagnostic Test Radiology reviewed: Image reviewed, Reports reviewed Radiology results interpreted by me: 03/15/17 00:09 Chest x-ray: No acute infiltrate or pneumothorax Discharge - Discharge Clinical Impression: Sickle-cell disease with pain Sickle cell disease Qualifiers: Sickle-cell associated disorders: with unspecified crisis Qualified Code(s): D57.00 - Hb-SS disease with crisis, unspecified Sepsis Qualifiers: Sepsis type: sepsis due to unspecified organism Qualified Code(s): A41.9 - Sepsis, unspecified organism Admitting Provider: Sarwat
[2017-03-14 21:17] LABS: VENOUS BLOOD BASE EXCESS 2.6 mmol/L; VENOUS BLOOD HCO3 27.1 mmol/L (20-32); VENOUS BLOOD PCO2 41.4 mmHg (35-63); VENOUS BLOOD PH 7.43 (7.30-7.42)
[2017-03-14 21:21] LABS: HGB HCT DIFFERENCE -0.2; MEAN CORPUSCULAR HEMOGLOBIN 30.1 pg (27.0-33.4); MEAN CORPUSCULAR VOLUME 91 fl (80-97); RED CELL DISTRIBUTION WIDTH 17.2 % (11.5-14.0); WHITE BLOOD COUNT 27.5 10^3/uL (4.0-10.5)
[2017-03-14 21:30] LABS: HEMOGLOBIN 6.6 g/dL (13.5-17.0)
[2017-03-14 21:31] LABS: ALANINE AMINOTRANSFERASE 50 U/L (21-72); ALBUMIN 2.9 g/dL (3.5-5.0); ALKALINE PHOSPHATASE 91 U/L (38-126); ANION GAP 9 (5-19); ASPARTATE AMINO TRANSFERASE 45 U/L (17-59); BILIRUBIN,DIRECT 2.6 mg/dL (0.0-0.4); BILIRUBIN,TOTAL 4.2 mg/dL (0.2-1.3); BLOOD UREA NITROGEN 54 mg/dL (7-20); CALCIUM 8.8 mg/dL (8.4-10.2); CARBON DIOXIDE 26 mmol/L (22-30); CHLORIDE 100 mmol/L (98-107); CREATININE RESULT 1.91 mg/dL (0.52-1.25); GLUCOSE 134 mg/dL (75-110); POTASSIUM 3.6 mmol/L (3.6-5.0); SODIUM 134.7 mmol/L (137-145); TOTAL PROTEIN 6.5 g/dL (6.3-8.2)
[2017-03-14 21:40] LABS: BASOPHILS % (MANUAL) 0 % (0-2); EOSINOPHILS % (MANUAL) 0 % (0-6); LYMPHOCYTES % (MANUAL) 7 % (13-45); TOTAL CELLS COUNTED 100
[2017-03-14 21:46] LABS: ANISOCYTOSIS 1+; HOWELL-JOLLY BODIES PRESENT; OVALOCYTES 1+; POIKILOCYTOSIS 1+; POLYCHROMASIA SLIGHT; TARGET CELLS 1+; TEAR DROP CELLS SLIGHT
[2017-03-14] MEDS ORDERED: RINGERS SOLUTION,LACTATED 1,000 ML IV ONE (22:34)
[2017-03-14] MEDS ORDERED: VANCOMYCIN HCL INJ 1000 MG VIAL IV ONE (23:19)
[2017-03-14 23:23] LABS: ADD ON TESTING BLD IN LAB ACKNOWLEDGE
[2017-03-14 23:29] LABS: AMORPHOUS SEDIMENT,URINE TRACE /HPF; APPEARANCE,URINE SLIGHTLY-CLOUDY; BILIRUBIN,URINE NEGATIVE (NEGATIVE); GLUCOSE, URINE NEGATIVE (NEGATIVE); KETONES,URINE NEGATIVE (NEGATIVE); LEUKOCYTE ESTERASE,URINE NEGATIVE (NEGATIVE); NITRITE,URINE NEGATIVE (NEGATIVE); PROTEIN,URINE 30 mg/dL (NEGATIVE); URINE SPECIFIC GRAVITY 1.012; UROBILINOGEN,URINE NEGATIVE mg/dL (<2.0)
[2017-03-14 23:34] LABS: CREATINE KINASE 332 U/L (55-170)
[2017-03-15] MEDS ORDERED: ACETAMINOPHEN 325 MG TABLET PO ONE (00:09)
[2017-03-15] MEDS ORDERED: NORMAL SALINE 1000 ML 1,000 ML IV ONE (00:10)
[2017-03-15] MEDS ORDERED: DEFERASIROX PO SCH ×2 (10:00)
[2017-03-15] MEDS: CHOLECALCIFEROL (D3) 1,000 UNIT TABLET PO SCH (10:20)
[2017-03-15] MEDS: MAGNESIUM OXIDE 400 MG TABLET PO SCH (10:20)
[2017-03-15] MEDS: LEVETIRACETAM 500 MG TABLET PO SCH ×2 (10:20→21:48)
[2017-03-15] MEDS: FOLIC ACID 1 MG TABLET PO SCH (10:21)
[2017-03-15] MEDS: HYDROXYUREA 500 MG CAPSULE PO SCH (10:21)
[2017-03-15] MEDS: ASPIRIN 81 MG TABLET, ENT COATED PO SCH ×3 (12:14→23:48)
[2017-03-15] MEDS: AMPICILLIN SODIUM/SULBACTAM NA 3 GM in NORMAL SALINE 100 ML IV SCH ×2 (13:23→21:47)
[2017-03-15] MEDS: NORMAL SALINE 1000 ML 1,000 ML IV PRN (16:22)
[2017-03-15] MEDS: TAMSULOSIN HCL 0.4 MG CAP.SR.24H PO SCH (17:42)
[2017-03-15] MEDS: HYDROCODONE/ACETAMINOPHEN 5-325 MG TABLET PO PRN (22:41)
[2017-03-16] MEDS ORDERED: VANCOMYCIN HCL INJ 1000 MG VIAL ONE (02:02)
[2017-03-16] MEDS ORDERED: LIDOCAINE 1% INJ-PF (10 MG/ML) 30 ML SDV ONE (02:05)
--- NOTE | 2017-03-16 02:18 | PDOC H&P ---
History of Present Illness Admission Date/PCP: 03/15/17 06:10 RUMA RUTH MD History of Present Illness: EMIL BARNES is a 27 year old male is also history of sickle cell disease , he came to emergency room because ability to eat or drink the last 3 days. He was recent;y admitted in this hospital at the time ,he had MRI of the right knee and it was normal, patient is mentally challenged and history taking is a challenged When I came in to see patient on the floor he denied any history of trauma fall or injury but on examination of the lower extremities there is swelling in the right thigh when compared to the left side actually seems that there is swelling in both thigh but is more on the left than the right thigh. MRI of the thigh was requested because I suspected pyomyositis of the thigh. MRI was done MRI showed severe increase fluid/edema of the musculature, fascia and bone marrow differential diagnosis included cellulitis ,myositis, necrotizing fasciitis, compartment syndrome because of these possible diagnostic differential consultation was requested from surgery. I spoke to the staff at [facility] about this patient, he apparently fell couple of days ago at an event, the swelling in his right thigh is probably a consequence of the fall. Past Medical History Cardiac Medical History: Reports: Heart Murmur Pulmonary Medical History: Reports: Pneumonia Neurological Medical History: Reports: Seizures GI Medical History: Reports: Gastroesophageal Reflux Disease Psychiatric Medical History: Reports: Depression Hematology: Reports: Anemia, Sickle Cell Disease, Bleeding Tendencies Denies: Hemophilia Past Surgical History Past Surgical History: Reports: Cholecystectomy Denies: Appendectomy, Tonsillectomy Social History Lives with: Other - correction Smoking Status: Former Smoker Frequency of Alcohol Use: None Hx Recreational Drug Use: No Drugs: None Hx Prescription Drug Abuse: No Family History Family History: Reviewed & Not Pertinent, Other Parental Family History Reviewed: Yes Children Family History Reviewed: Yes Sibling(s) Family History Reviewed.: Yes Medication/Allergy Home Medications: Aspirin [Aspirin 81 mg Chewable Tablet] 81 mg PO DAILY 03/15/17 Cholecalciferol (Vitamin D3) [Vitamin D3 1000 Unit Tablet] 1,000 unit PO DAILY 03/15/17 Deferasirox [Exjade] 1,500 mg PO DAILY 03/15/17 Folic Acid [Folvite 1 mg Tablet] 1 mg PO DAILY 03/15/17 Hydroxyurea [Hydrea 500 mg Capsule] 500 mg PO DAILY 03/15/17 Levetiracetam [Keppra] 1,000 mg PO Q12 03/15/17 Magnesium Oxide [Mag-Ox 400 mg Tablet] 800 mg PO DAILY 03/15/17 Tamsulosin HCl [Flomax 0.4 mg Cap.sr] 0.4 mg PO DAILY 03/15/17 Allergies/Adverse Reactions: No Known Drug Allergies Allergy (Unknown, Verified 04/02/15 13:14) mayonaise Allergy (Uncoded 02/17/14 09:13) Review of Systems Constitutional: ABSENT: chills, fever(s), headache(s), weight gain, weight loss Eyes: ABSENT: visual disturbances Ears: ABSENT: hearing changes Cardiovascular: ABSENT: chest pain, dyspnea on exertion, edema, orthropnea, palpitations Respiratory: ABSENT: cough, hemoptysis Gastrointestinal: ABSENT: abdominal pain, constipation, diarrhea, hematemesis, hematochezia, nausea, vomiting Genitourinary: ABSENT: dysuria, hematuria Musculoskeletal: PRESENT: joint swelling Integumentary: ABSENT: rash, wounds Neurological: ABSENT: abnormal gait, abnormal speech, confusion, dizziness, focal weakness, syncope Psychiatric: ABSENT: anxiety, depression, homidical ideation, suicidal ideation Endocrine: ABSENT: cold intolerance, heat intolerance, menstrual abnormalities, polydipsia, polyuria Hematologic/Lymphatic: ABSENT: easy bleeding, easy bruising, lymphadenopathy Physical Exam Vital Signs: Temp Pulse Resp BP Pulse Ox 97.6 F 117 H 18 109/53 L 100 03/15/17 23:48 03/15/17 23:48 03/15/17 23:48 03/15/17 23:48 03/15/17 23:48 Intake & Output 03/14/17 03/15/17 03/16/17 06:59 06:59 06:59 Intake Total 2421 Balance 2421 General appearance: PRESENT: mild distress Head exam: PRESENT: atraumatic, normocephalic Eye exam: PRESENT: PERRLA Ear exam: PRESENT: normal external ear exam Mouth exam: PRESENT: moist, tongue midline Neck exam: PRESENT: full ROM Respiratory exam: PRESENT: clear to auscultation ishan Cardiovascular exam: PRESENT: +S1, +S2 Pulses: PRESENT: normal dorsalis pedis pul, +2 pedal pulses bilateral Vascular exam: PRESENT: normal capillary refill GI/Abdominal exam: PRESENT: normal bowel sounds, soft. ABSENT: distended, guarding, mass, organolmegaly, rebound, tenderness Rectal exam: PRESENT: deferred Musculoskeletal exam: PRESENT: deformity - There is deformity, swelling of the right thigh, with limitation of range of motion of the right hip joint, other - swelling of the right thigh Neurological exam: PRESENT: alert, awake, oriented to person, oriented to place , oriented to time, oriented to situation, CN II-XII grossly intact Psychiatric exam: PRESENT: appropriate affect, normal mood Skin exam: PRESENT: dry, intact, warm Results Impressions: Chest X-Ray 03/14/17 20:30 IMPRESSION: NO ACUTE RADIOGRAPHIC FINDING IN THE CHEST. Lower Extremity MRI 03/15/17 00:00 IMPRESSION: Severe increased fluid sensitive signal/edema of the musculature, faucia, and bone marrow of the right upper leg. Differential diagnosis includes cellulitis, myositis, necrotizing fasciitis, osteomyelitis; at-risk for compartment syndrome. Urgent orthopedic consultation advised. Assessment & Plan - Diagnosis (1) Swelling of limb, right Is this a current diagnosis for this admission?: YesPlan: The differential diagnosis includes, necrotizing fasciitis ,unlikely, pyomyositis, traumatic edema, there is associated leukocytosis, patient will be empirically treated with intravenous antibiotic, vancomycin and Unasyn to cover MRSA, and gram-negative organisms. (2) History of CVA with residual deficit Is this a current diagnosis for this admission?: Yes (3) History of seizure disorder Is this a current diagnosis for this admission?: Yes (4) Leukocytosis (leucocytosis) Qualifiers: Leukocytosis type: unspecified Qualified Code(s): D72.829 - Elevated white blood cell count, unspecified (5) Sickle cell anemia Qualifiers: Sickle-cell associated disorders: with unspecified crisis Qualified Code(s): D57.00 - Hb-SS disease with crisis, unspecified; D57.0 - Hb-SS disease with crisis Is this a current diagnosis for this admission?: Yes (6) Sickle cell crisis Is this a current diagnosis for this admission?: Yes
[2017-03-16] MEDS ORDERED: VANCOMYCIN HCL 1,000 MG in DEXTROSE 5%-WATER 250 ML IV ONE ×2 (02:30→11:00)
[2017-03-16] MEDS ORDERED: VANCOMYCIN HCL INJ 1000 MG VIAL IV PRN (02:30)
--- NOTE | 2017-03-16 02:38 | PDOC CONSULTATION ---
Consultation Attending physician:: RUMA RUTH Consult reason:: Rule out necrotizing fasciitis History of Present Illness Admission Date/PCP: 03/15/17 06:10 RUMA RUTH MD History of Present Illness: EMIL BARNES is a 27 year old male is also history of sickle cell disease , he came to emergency room because ability to eat or drink the last 3 days. He was recent;y admitted in this hospital at the time ,he had MRI of the right knee and it was normal, patient is mentally challenged and history taking is a challenged Surgeons addendum: In addition to the above limited history, I have spoken to the patient's uncle , David Kaplan, who was the patient's healthcare power of spin table operator. Accordingly, the patient was walking and getting about reasonably well until 1 week ago. He developed weakness primarily in his right leg and right knee. His symptoms have reportedly worsened over the past week. Laboratory profile shows leukocytosis and acute renal insufficiency. I spent approximately 20 minutes reviewing the MRI scan to the patient's right lower extremity radiologist diana. Findings are significant for diffuse edema of the skin, subcutaneous tissue, fascia and muscle, apparently new compared to last week MRI which was limited to the right knee. The differential diagnosis is very broad and includes necrotizing fasciitis Past Medical History Cardiac Medical History: Reports: Heart Murmur Pulmonary Medical History: Reports: Pneumonia Neurological Medical History: Reports: Seizures GI Medical History: Reports: Gastroesophageal Reflux Disease Psychiatric Medical History: Reports: Depression Hematology: Reports: Anemia, Sickle Cell Disease, Bleeding Tendencies Denies: Hemophilia Past Surgical History Past Surgical History: Reports: Cholecystectomy, Other - Patient tracheostomy and PEG tube placement [facility] 3 years Denies: Appendectomy, Tonsillectomy Social History Lives with: Other - correction Smoking Status: Unknown if Ever Smoked Frequency of Alcohol Use: None Hx Recreational Drug Use: No Drugs: None Hx Prescription Drug Abuse: No Family History Family History: Reviewed & Not Pertinent, Other Parental Family History Reviewed: Yes Children Family History Reviewed: Yes Sibling(s) Family History Reviewed.: Yes Medication/Allergy Home Medications: Aspirin [Aspirin 81 mg Chewable Tablet] 81 mg PO DAILY 03/15/17 Cholecalciferol (Vitamin D3) [Vitamin D3 1000 Unit Tablet] 1,000 unit PO DAILY 03/15/17 Deferasirox [Exjade] 1,500 mg PO DAILY 03/15/17 Folic Acid [Folvite 1 mg Tablet] 1 mg PO DAILY 03/15/17 Hydroxyurea [Hydrea 500 mg Capsule] 500 mg PO DAILY 03/15/17 Levetiracetam [Keppra] 1,000 mg PO Q12 03/15/17 Magnesium Oxide [Mag-Ox 400 mg Tablet] 800 mg PO DAILY 03/15/17 Tamsulosin HCl [Flomax 0.4 mg Cap.sr] 0.4 mg PO DAILY 03/15/17 Allergies/Adverse Reactions: No Known Drug Allergies Allergy (Unknown, Verified 04/02/15 13:14) mayonaise Allergy (Uncoded 02/17/14 09:13) Review of Systems ROS unobtainable: Due to mental status Constitutional: PRESENT: as per HPI Physical Exam Vital Signs: Temp Pulse Resp BP Pulse Ox 97.6 F 117 H 18 109/53 L 100 03/15/17 23:48 03/15/17 23:48 03/15/17 23:48 03/15/17 23:48 03/15/17 23:48 Intake & Output 03/14/17 03/15/17 03/16/17 06:59 06:59 06:59 Intake Total 2421 Balance 2421 General appearance: PRESENT: no acute distress Head exam: PRESENT: normocephalic Teeth exam: PRESENT: poor dentation Neck exam: PRESENT: full ROM, other - Tracheostomy scar Respiratory exam: PRESENT: unlabored Cardiovascular exam: PRESENT: RRR, tachycardia Pulses: PRESENT: normal carotid pulses, normal radial pulses Vascular exam: PRESENT: normal capillary refill GI/Abdominal exam: PRESENT: soft - Nontender no peritoneal signs Rectal exam: PRESENT: deferred Gentrourinary exam: PRESENT: other - penis circumcised and scrotum unremarkable Musculoskeletal exam: PRESENT: other - Lower extremities swollen right greater than left from hip to knee on the right side, no focal localized swelling or skin changes. No erythema streaking etc. Neurological exam: PRESENT: other - Awake and communicative, history of unreliable Psychiatric exam: PRESENT: other - All Results Impressions: Chest X-Ray 03/14/17 20:30 IMPRESSION: NO ACUTE RADIOGRAPHIC FINDING IN THE CHEST. Lower Extremity MRI 03/15/17 00:00 IMPRESSION: Severe increased fluid sensitive signal/edema of the musculature, faucia, and bone marrow of the right upper leg. Differential diagnosis includes cellulitis, myositis, necrotizing fasciitis, osteomyelitis; at-risk for compartment syndrome. Urgent orthopedic consultation advised. Status: Image reviewed by me - Surgeons addendum: Chest x-ray normal; see MRI scan above Assessment & Plan - Diagnosis (1) Sepsis Qualifiers: Sepsis type: sepsis due to unspecified organism Qualified Code(s): A41.9 - Sepsis, unspecified organism Is this a current diagnosis for this admission?: YesPlan: 1. I have examined the patient, and reviewed the record and discussed the MRI scan tonight with the on-call radiologist; I have also discussed the patient with Dr. Ruth. 2. I performed bedside fine needle aspiration with an 18-gauge needle of the anterior muscular compartment. There was no fluid aspirated. 3. We are concerned the patient may have necrotizing fasciitis. This is a challenging diagnosisto make. At this moment based on physical examination findings, which are fairly nonspecific, and non-localized on the right lower extremity, and a minimally elevated CPK, I do not believe the patient's leg should be opened up in the operating room. I will reexamine the patient in 4 hours, and re-consider appropriateness of exploring this patient's right lower extremity soft tissue. I have explained this plan to Dr. Rees as well as the patient's healthcare power of spin table operator. - Time Time Spent: 50 to 70 Minutes Critical Time spent with patient: 15-24 minutes Medications reviewed and adjusted accordingly: Yes - Inpatient Certification Based on my medical assessment, after consideration of the patient's comorbidities, presenting symptoms, or acuity I expect that the services needed warrant INPATIENT care.: Yes I certify that my determination is in accordance with my understanding of Medicare's requirements for reasonable and necessary INPATIENT services [42 CFR 412.3e].: Yes Medical Necessity: Need for IV Antibiotics
--- NOTE | 2017-03-16 03:34 | OPERATIVE REPORT E ---
Operative Report NAME: EMIL BARNES : 1990 AGE: 27Y DATE OF SURGERY: 03/16/2017 ROOM: 301 PREOPERATIVE DIAGNOSIS: SWOLLEN, EDEMATOUS RIGHT LOWER EXTREMITY. POSTOPERATIVE DIAGNOSIS: SWOLLEN, EDEMATOUS RIGHT LOWER EXTREMITY. OPERATION: Fine-needle aspiration right anterior thigh. SURGEON: MAME ARENAS M.D. ANESTHESIA: Lidocaine 1% without epinephrine. COMPLICATIONS: None. FINDINGS: See below. SUMMARY OF PROCEDURE: The patient's right thigh was exposed. Consent was obtained by the patient's [facility] power of insurance defense attorney. The right anterior thigh was prepped with Betadine, anesthetized with 1% lidocaine without epinephrine and a 25-gauge needle. Using an 18-gauge needle, aspiration was made of the right thigh into the deep muscular compartment as well as the fascial layer. No fluid was aspirated. The procedure was terminated. He tolerated the procedure well. Band-Aid was applied to the skin. DICTATING PHYSICIAN: MAME ARENAS M.D. [id number] PHY#: [id number] ID: [id number] JOB#: [id number] ACCT: [id number] cc:MAME ARENAS M.D. >
[2017-03-16] MEDS ORDERED: LIDOCAINE 1% INJ (10 MG/ML) 10 ML MDV INJ PRN (04:39)
[2017-03-16] MEDS: ASPIRIN 81 MG TABLET, ENT COATED PO SCH ×3 (05:08→17:28)
[2017-03-16] MEDS: AMPICILLIN SODIUM/SULBACTAM NA 3 GM in NORMAL SALINE 100 ML IV SCH ×3 (05:08→21:20)
[2017-03-16] MEDS: NORMAL SALINE 1000 ML 1,000 ML IV PRN (06:01)
[2017-03-16 09:57] LABS: CREATININE RESULT 0.67 mg/dL (0.52-1.25)
[2017-03-16] MEDS: FOLIC ACID 1 MG TABLET PO SCH (10:01)
[2017-03-16] MEDS: HYDROXYUREA 500 MG CAPSULE PO SCH (10:02)
[2017-03-16] MEDS: MAGNESIUM OXIDE 400 MG TABLET PO SCH (10:02)
[2017-03-16] MEDS: LEVETIRACETAM 500 MG TABLET PO SCH ×2 (10:02→21:19)
[2017-03-16] MEDS: CHOLECALCIFEROL (D3) 1,000 UNIT TABLET PO SCH (10:02)
[2017-03-16 15:28] LABS: ALANINE AMINOTRANSFERASE 50 U/L (21-72); ALKALINE PHOSPHATASE 103 U/L (38-126); ANION GAP 6 (5-19); ASPARTATE AMINO TRANSFERASE 53 U/L (17-59); BILIRUBIN,DIRECT 0.7 mg/dL (0.0-0.4); BILIRUBIN,TOTAL 1.3 mg/dL (0.2-1.3); BLOOD UREA NITROGEN 17 mg/dL (7-20); CALCIUM 8.2 mg/dL (8.4-10.2); CARBON DIOXIDE 25 mmol/L (22-30); CHLORIDE 106 mmol/L (98-107); CREATININE RESULT 0.65 mg/dL (0.52-1.25); GLUCOSE 123 mg/dL (75-110); POTASSIUM 3.6 mmol/L (3.6-5.0); SODIUM 137.1 mmol/L (137-145); TOTAL PROTEIN 4.8 g/dL (6.3-8.2)
[2017-03-16 15:57] LABS: HGB HCT DIFFERENCE -0.2; MEAN CORPUSCULAR HEMOGLOBIN 30.2 pg (27.0-33.4); MEAN CORPUSCULAR HGB CONC 32.9 g/dL (32.0-36.0); MEAN CORPUSCULAR VOLUME 92 fl (80-97); RED BLOOD COUNT 1.56 10^6/uL (4.35-5.55); RED CELL DISTRIBUTION WIDTH 17.2 % (11.5-14.0); WHITE BLOOD COUNT 16.3 10^3/uL (4.0-10.5)
[2017-03-16 16:36] LABS: BASOPHILS % (MANUAL) 0 % (0-2); EOSINOPHILS % (MANUAL) 1 % (0-6); LYMPHOCYTES % (MANUAL) 7 % (13-45); TOTAL CELLS COUNTED 100
[2017-03-16 16:39] LABS: OVALOCYTES SLIGHT
[2017-03-16 16:40] LABS: ANISOCYTOSIS 1+; HOWELL-JOLLY BODIES PRESENT; POIKILOCYTOSIS 1+; POLYCHROMASIA SLIGHT; SCHISTOCYTES SLIGHT; TARGET CELLS 1+; TEAR DROP CELLS SLIGHT
[2017-03-16 16:44] LABS: HEMOGLOBIN 4.7 g/dL (13.5-17.0)
[2017-03-16 16:45] LABS: HEMATOCRIT 14.3 % (37.9-51.0)
--- NOTE | 2017-03-16 16:52 | PDOC PROGRESS REPORT ---
Subjective Progress Note for:: 03/16/17 Subjective:: Patient was seen by the bedside, the case was discussed with the family, it probably of traumatic edema/bleed in the thigh the hemoglobin is 4.7, urine and he will need blood transfusion. Physical Exam Vital Signs: Temp Pulse Resp BP Pulse Ox 98.5 F 100 16 96/44 L 99 03/16/17 11:55 03/16/17 11:55 03/16/17 11:55 03/16/17 11:55 03/16/17 11:55 Intake & Output 03/15/17 03/16/17 03/17/17 06:59 06:59 06:59 Intake Total 3793 222 Output Total 500 0 Balance 3293 222 General appearance: PRESENT: no acute distress Eye exam: PRESENT: PERRLA Respiratory exam: PRESENT: clear to auscultation ishan Cardiovascular exam: PRESENT: +S1, +S2 Extremities exam: PRESENT: other - There is swelling and tenderness of the right thigh Results Laboratory Results: 03/16/17 15:40 03/16/17 14:45 03/16/17 03/16/17 03/16/17 09:15 14:45 14:45 WBC Cancelled RBC Cancelled Hgb Cancelled Hct Cancelled MCV Cancelled MCH Cancelled MCHC Cancelled RDW Cancelled Plt Count Cancelled Seg Neutrophils % Cancelled Lymphocytes % Cancelled Monocytes % Cancelled Eosinophils % Cancelled Basophils % Cancelled Absolute Neutrophils Cancelled Absolute Lymphocytes Cancelled Absolute Monocytes Cancelled Absolute Eosinophils Cancelled Absolute Basophils Cancelled Sodium 137.1 Potassium 3.6 Chloride 106 Carbon Dioxide 25 Anion Gap 6 BUN 17 Creatinine 0.67 0.65 Est GFR ( Amer) > 60 > 60 Est GFR (Non-Af Amer) > 60 > 60 Glucose 123 H Calcium 8.2 L Total Bilirubin 1.3 AST 53 ALT 50 Alkaline Phosphatase 103 Total Protein 4.8 L Albumin 2.0 L 03/16/17 15:40 WBC 16.3 H RBC 1.56 L Hgb 4.7 L* Hct 14.3 L* MCV 92 MCH 30.2 MCHC 32.9 RDW 17.2 H Plt Count 406 Seg Neutrophils % Not Reportable Lymphocytes % Not Reportable Monocytes % Not Reportable Eosinophils % Not Reportable Basophils % Not Reportable Absolute Neutrophils Not Reportable Absolute Lymphocytes Not Reportable Absolute Monocytes Not Reportable Absolute Eosinophils Not Reportable Absolute Basophils Not Reportable Sodium Potassium Chloride Carbon Dioxide Anion Gap BUN Creatinine Est GFR ( Amer) Est GFR (Non-Af Amer) Glucose Calcium Total Bilirubin AST ALT Alkaline Phosphatase Total Protein Albumin 03/16/17 02:45 Creatine Kinase 117 Impressions: Chest X-Ray 03/14/17 20:30 IMPRESSION: NO ACUTE RADIOGRAPHIC FINDING IN THE CHEST. Lower Extremity MRI 03/15/17 00:00 IMPRESSION: Severe increased fluid sensitive signal/edema of the musculature, faucia, and bone marrow of the right upper leg. Differential diagnosis includes cellulitis, myositis, necrotizing fasciitis, osteomyelitis; at-risk for compartment syndrome. Urgent orthopedic consultation advised. Assessment & Plan - Diagnosis (1) Swelling of limb, right Is this a current diagnosis for this admission?: Yes (2) History of CVA with residual deficit Is this a current diagnosis for this admission?: Yes (3) History of seizure disorder Is this a current diagnosis for this admission?: Yes (4) Leukocytosis (leucocytosis) Qualifiers: Leukocytosis type: unspecified Qualified Code(s): D72.829 - Elevated white blood cell count, unspecified Is this a current diagnosis for this admission?: Yes (5) Sickle cell anemia Qualifiers: Sickle-cell associated disorders: with unspecified crisis Qualified Code(s): D57.00 - Hb-SS disease with crisis, unspecified; D57.0 - Hb-SS disease with crisis Is this a current diagnosis for this admission?: Yes (6) Sickle cell crisis Is this a current diagnosis for this admission?: Yes (7) Anemia due to blood loss Is this a current diagnosis for this admission?: YesPlan: Patient is probably bleeding into the right thigh, he will be transfused with packed red blood cells
[2017-03-16] MEDS ORDERED: NORMAL SALINE 250 ML IV PRN ×2 (16:53)
[2017-03-16] MEDS: VANCOMYCIN HCL 1,000 MG in DEXTROSE 5%-WATER 250 ML IV SCH (17:27)
[2017-03-16] MEDS: TAMSULOSIN HCL 0.4 MG CAP.SR.24H PO SCH (17:28)
[2017-03-16] MEDS: KETOROLAC TROMETHAMINE INJ/PF 30 MG/1 ML SDV IV SCH (18:12)
--- NOTE | 2017-03-16 21:24 | PDOC CONSULTATION ---
Consultation Consult Date: 03/16/17 Attending physician:: RUMA RUTH Consult reason:: Right leg pain and swelling History of Present Illness Admission Date/PCP: 03/15/17 06:10 RUMA RUTH MD History of Present Illness: 27-year-old patient with sickle cell anemia whose recent fall. Developed pain and swelling in the right thigh. Patient taken to the ER was admitted and evaluated by primary care. Patient has pain with ambulation pain with the range of motion and swelling of the thigh. Denies any numbness or paresthesias or weakness. Pain is 10 out of 10 when moving and the resting pain is 5 out of 10. Occasional pain is dull at rest and acute with motion. Past Medical History Cardiac Medical History: Reports: Heart Murmur Pulmonary Medical History: Reports: Pneumonia Neurological Medical History: Reports: Seizures GI Medical History: Reports: Gastroesophageal Reflux Disease Psychiatric Medical History: Reports: Depression Hematology: Reports: Anemia, Sickle Cell Disease, Bleeding Tendencies Denies: Hemophilia Past Surgical History Past Surgical History: Reports: Cholecystectomy, Other - Patient tracheostomy and PEG tube placement [facility] 3 years Denies: Appendectomy, Tonsillectomy Social History Lives with: Other - long-term Smoking Status: Former Smoker Frequency of Alcohol Use: None Hx Recreational Drug Use: No Drugs: None Hx Prescription Drug Abuse: No Family History Family History: Reviewed & Not Pertinent, Other Parental Family History Reviewed: No Children Family History Reviewed: No Sibling(s) Family History Reviewed.: No Medication/Allergy Home Medications: Aspirin [Aspirin 81 mg Chewable Tablet] 81 mg PO DAILY 03/15/17 Cholecalciferol (Vitamin D3) [Vitamin D3 1000 Unit Tablet] 1,000 unit PO DAILY 03/15/17 Deferasirox [Exjade] 1,500 mg PO DAILY 03/15/17 Folic Acid [Folvite 1 mg Tablet] 1 mg PO DAILY 03/15/17 Hydroxyurea [Hydrea 500 mg Capsule] 500 mg PO DAILY 03/15/17 Levetiracetam [Keppra] 1,000 mg PO Q12 03/15/17 Magnesium Oxide [Mag-Ox 400 mg Tablet] 800 mg PO DAILY 03/15/17 Tamsulosin HCl [Flomax 0.4 mg Cap.sr] 0.4 mg PO DAILY 03/15/17 Allergies/Adverse Reactions: No Known Drug Allergies Allergy (Unknown, Verified 04/02/15 13:14) mayonaise Allergy (Uncoded 02/17/14 09:13) Review of Systems Constitutional: PRESENT: fatigue. ABSENT: night sweats, weakness Eyes: ABSENT: visual disturbances Ears: ABSENT: hearing changes Nose, Mouth, and Throat: ABSENT: sore throat Cardiovascular: ABSENT: chest pain, palpitations Respiratory: ABSENT: hemoptysis, sputum Musculoskeletal: PRESENT: as per HPI, joint swelling. ABSENT: deformity Integumentary: ABSENT: diaphoresis, erythema Neurological: ABSENT: numbness, paresthesias Psychiatric: ABSENT: hallucinations, homidical ideation Physical Exam Vital Signs: Temp Pulse Resp BP Pulse Ox 37.4 C 102 H 18 103/47 L 100 03/16/17 20:00 03/16/17 20:00 03/16/17 20:00 03/16/17 20:00 03/16/17 20:00 Intake & Output 03/15/17 03/16/17 03/17/17 06:59 06:59 06:59 Intake Total 3793 766 Output Total 500 0 Balance 3293 766 General appearance: PRESENT: no acute distress Respiratory exam: PRESENT: symmetrical, unlabored. ABSENT: accessory muscle use , chest wall tenderness, tachypnea GI/Abdominal exam: ABSENT: distended, guarding, tenderness Skin exam: PRESENT: intact, warm. ABSENT: erythema, petechiae, rash Adult Front & Back Image: 1 - Induration posteriorly. Tenderness anteriorly medially and posteriorly. Compartments are extremely soft and depressible. No evidence of compartment syndrome. Good Refills distally. Full range of motion of the knee with significant pain. Had more pain with attempted flexion and internal rotation and external rotation and abduction of the thigh. Sensation is intact to light touch. Motor is 5 out of 5 distally. Results Laboratory Results: 03/16/17 15:40 03/16/17 14:45 03/16/17 03/16/17 03/16/17 09:15 14:45 14:45 WBC Cancelled RBC Cancelled Hgb Cancelled Hct Cancelled MCV Cancelled MCH Cancelled MCHC Cancelled RDW Cancelled Plt Count Cancelled Seg Neutrophils % Cancelled Lymphocytes % Cancelled Monocytes % Cancelled Eosinophils % Cancelled Basophils % Cancelled Absolute Neutrophils Cancelled Absolute Lymphocytes Cancelled Absolute Monocytes Cancelled Absolute Eosinophils Cancelled Absolute Basophils Cancelled Sodium 137.1 Potassium 3.6 Chloride 106 Carbon Dioxide 25 Anion Gap 6 BUN 17 Creatinine 0.67 0.65 Est GFR ( Amer) > 60 > 60 Est GFR (Non-Af Amer) > 60 > 60 Glucose 123 H Calcium 8.2 L Total Bilirubin 1.3 AST 53 ALT 50 Alkaline Phosphatase 103 Total Protein 4.8 L Albumin 2.0 L Blood Type Antibody Screen 03/16/17 03/16/17 15:40 17:44 WBC 16.3 H RBC 1.56 L Hgb 4.7 L* Hct 14.3 L* MCV 92 MCH 30.2 MCHC 32.9 RDW 17.2 H Plt Count 406 Seg Neutrophils % Not Reportable Lymphocytes % Not Reportable Monocytes % Not Reportable Eosinophils % Not Reportable Basophils % Not Reportable Absolute Neutrophils Not Reportable Absolute Lymphocytes Not Reportable Absolute Monocytes Not Reportable Absolute Eosinophils Not Reportable Absolute Basophils Not Reportable Sodium Potassium Chloride Carbon Dioxide Anion Gap BUN Creatinine Est GFR ( Amer) Est GFR (Non-Af Amer) Glucose Calcium Total Bilirubin AST ALT Alkaline Phosphatase Total Protein Albumin Blood Type A POSITIVE Antibody Screen NEGATIVE 03/16/17 02:45 Creatine Kinase 117 Impressions: Chest X-Ray 03/14/17 20:30 IMPRESSION: NO ACUTE RADIOGRAPHIC FINDING IN THE CHEST. Lower Extremity MRI 03/15/17 00:00 IMPRESSION: Severe increased fluid sensitive signal/edema of the musculature, faucia, and bone marrow of the right upper leg. Differential diagnosis includes cellulitis, myositis, necrotizing fasciitis, osteomyelitis; at-risk for compartment syndrome. Urgent orthopedic consultation advised. Status: Image reviewed by me Assessment & Plan - Diagnosis (1) Myositis Qualifiers: Myositis type: unspecified type Myositis location: thigh Laterality : right Qualified Code(s): M60.851 - Other myositis, right thigh Is this a current diagnosis for this admission?: YesPlan: 27-year-old patient with sickle cell anemia. Status post injury was thigh swelling. I believe the patient potentially may have had a potential bleed or simple myositis secondary to sickle cell anemia. Patient is a severely anemic we'll let that addressed by Dr. Ruth. Patient has no evidence of compartment syndrome. Very low suspicion for necrotizing fasciitis. Agree with general surgery that the patient does not require any surgical intervention at this moment. Continue conservative treatment.
[2017-03-17] MEDS: ASPIRIN 81 MG TABLET, ENT COATED PO SCH ×3 (00:25→18:00)
[2017-03-17] MEDS: KETOROLAC TROMETHAMINE INJ/PF 30 MG/1 ML SDV IV SCH ×3 (00:26→18:00)
--- NOTE | 2017-03-17 01:19 | PROGRESS NOTE E ---
Progress Note NAME: EMIL BARNES : 1990 AGE: 27Y DATE: 03/16/2017 ROOM: 301 SUBJECTIVE: The patient is a 27-year-old male with sickle-cell disease, presenting with right lower extremity swelling. He had an MRI which showed edema of the muscle and subcutaneous tissues. It is unknown what is causing this at this time. The patient feels that the swelling in his right leg is decreasing. He does not have any significant pain. OBJECTIVE: The patient does have some swelling in the right leg, but not where I would believe that he has compartment syndrome or myositis needing surgical. DIAGNOSTIC DATA: White blood cell count 16.3, hemoglobin 4.7, lactic acid at 1.1, creatinine 0.65. ASSESSMENT: Right lower extremity swelling of unknown etiology. He has both muscle and subcutaneous tissue. He does not have any evidence of compartment syndrome or necrotizing myositis. His white blood cell count is decreasing on antibiotics, and his leg swelling is decreasing along with keeping it elevated. PLAN: I would recommend ultrasound to rule out DVT possibly in the pelvis as a cause of this swelling. If this is negative, then consideration of a CT pelvis, as the MRI of his lower extremity did not get up there that high to rule out lymph node involvement causing the swelling. 1. Duplex ultrasound of the right lower extremity in the a.m. 2. Continue right leg elevation. DICTATING PHYSICIAN: JAYE PAK M.D. [id number] PHY#: [id number] ID: [id number] JOB#: [id number] ACCT: [id number] cc: >
[2017-03-17] MEDS: VANCOMYCIN HCL 1,000 MG in DEXTROSE 5%-WATER 250 ML IV SCH ×3 (02:08→18:00)
[2017-03-17] MEDS: FOLIC ACID 1 MG TABLET PO SCH (10:00)
[2017-03-17] MEDS: CHOLECALCIFEROL (D3) 1,000 UNIT TABLET PO SCH (10:00)
[2017-03-17] MEDS: HYDROXYUREA 500 MG CAPSULE PO SCH (10:00)
[2017-03-17] MEDS: MAGNESIUM OXIDE 400 MG TABLET PO SCH (10:00)
[2017-03-17] MEDS: LEVETIRACETAM 500 MG TABLET PO SCH ×2 (10:00→21:47)
[2017-03-17] MEDS: AMPICILLIN SODIUM/SULBACTAM NA 3 GM in NORMAL SALINE 100 ML IV SCH ×2 (14:00→21:47)
[2017-03-17] MEDS: TAMSULOSIN HCL 0.4 MG CAP.SR.24H PO SCH (18:00)
--- NOTE | 2017-03-17 20:14 | XCELERA REPORT ---
[address] [address] Lower Extremity Venous Evaluation Name: EMIL BARNES Age: 27 yrs Gender: Male : 1990 Patient Status: Inpatient Patient Location: 3N\S\[facility] [place]\S\A Study Date: 03/17/2017 03:22 PM Procedure: Color flow and duplex imaging bilaterally of the veins of the lower extremities as well as the Common Femoral veins. Reason For Study: right leg swelling Ordering Physician: PEG PAK Performed By: Rachelle English Right Sided Venous Evaluation Normal vessel filling wall to wall, compression and augmentation as well as Colour flow down to the infrageniculate veins. Left Sided Venous Evaluation Normal vessel filling wall to wall, compression and augmentation as well as Colour flow down to the infrageniculate veins. Interpretation Summary No duplex evidence of DVT or obstruction in the bilateral lower extremities. : PEG PAK > Vince Floyd
--- NOTE | 2017-03-17 21:55 | PDOC PROGRESS REPORT ---
Subjective Progress Note for:: 03/17/17 Subjective:: Patient was seen by the bedside the swelling is improving some Physical Exam Vital Signs: Temp Pulse Resp BP Pulse Ox 98.7 F 85 18 109/60 99 03/17/17 20:01 03/17/17 20:01 03/17/17 20:01 03/17/17 20:01 03/17/17 20:01 Intake & Output 03/16/17 03/17/17 03/18/17 06:59 06:59 06:59 Intake Total 3793 1466 Output Total 500 0 Balance 3293 1466 Weight 66.9 kg General appearance: PRESENT: no acute distress Head exam: PRESENT: atraumatic, normocephalic. ABSENT: other Mouth exam: PRESENT: moist, tongue midline Neck exam: PRESENT: full ROM Respiratory exam: PRESENT: clear to auscultation ishan Cardiovascular exam: PRESENT: RRR, +S1, +S2 GI/Abdominal exam: PRESENT: normal bowel sounds, soft Rectal exam: PRESENT: deferred Extremities exam: PRESENT: joint swelling, other - swelling of the right leg Neurological exam: PRESENT: alert, awake, oriented to person, oriented to place , oriented to time, oriented to situation, CN II-XII grossly intact. ABSENT: motor sensory deficit Psychiatric exam: PRESENT: appropriate affect, normal mood Skin exam: PRESENT: dry, intact, warm Results Laboratory Results: 03/16/17 15:40 03/16/17 14:45 03/16/17 17:44 Blood Type A POSITIVE Antibody Screen NEGATIVE 03/16/17 02:45 Creatine Kinase 117 Impressions: Chest X-Ray 03/14/17 20:30 IMPRESSION: NO ACUTE RADIOGRAPHIC FINDING IN THE CHEST. Lower Extremity MRI 03/15/17 00:00 IMPRESSION: Severe increased fluid sensitive signal/edema of the musculature, faucia, and bone marrow of the right upper leg. Differential diagnosis includes cellulitis, myositis, necrotizing fasciitis, osteomyelitis; at-risk for compartment syndrome. Urgent orthopedic consultation advised. Assessment & Plan - Diagnosis (1) Swelling of limb, right Is this a current diagnosis for this admission?: Yes (2) History of CVA with residual deficit Is this a current diagnosis for this admission?: Yes (3) History of seizure disorder Is this a current diagnosis for this admission?: Yes (4) Leukocytosis (leucocytosis) Qualifiers: Leukocytosis type: unspecified Qualified Code(s): D72.829 - Elevated white blood cell count, unspecified Is this a current diagnosis for this admission?: Yes (5) Sickle cell anemia Qualifiers: Sickle-cell associated disorders: with unspecified crisis Qualified Code(s): D57.00 - Hb-SS disease with crisis, unspecified; D57.0 - Hb-SS disease with crisis Is this a current diagnosis for this admission?: Yes (6) Sickle cell crisis Is this a current diagnosis for this admission?: Yes (7) Anemia due to blood loss Is this a current diagnosis for this admission?: Yes
[2017-03-18] MEDS ORDERED: VANCOMYCIN HCL 750 MG in DEXTROSE 5%-WATER 250 ML IV SCH ×2
[2017-03-18] MEDS: KETOROLAC TROMETHAMINE INJ/PF 30 MG/1 ML SDV IV SCH ×4 (00:04→17:21)
[2017-03-18] MEDS: ASPIRIN 81 MG TABLET, ENT COATED PO SCH ×4 (00:04→17:21)
[2017-03-18] MEDS: AMPICILLIN SODIUM/SULBACTAM NA 3 GM in NORMAL SALINE 100 ML IV SCH ×3 (06:24→22:10)
[2017-03-18] MEDS: HYDROCODONE/ACETAMINOPHEN 5-325 MG TABLET PO PRN ×3 (06:25→22:43)
[2017-03-18 09:04] LABS: HEMATOCRIT 21.9 % (37.9-51.0); HGB HCT DIFFERENCE -0.6; MEAN CORPUSCULAR HGB CONC 32.5 g/dL (32.0-36.0); MEAN CORPUSCULAR VOLUME 92 fl (80-97); RED BLOOD COUNT 2.37 10^6/uL (4.35-5.55); RED CELL DISTRIBUTION WIDTH 16.3 % (11.5-14.0); WHITE BLOOD COUNT 14.5 10^3/uL (4.0-10.5)
[2017-03-18 09:05] LABS: HEMOGLOBIN 7.1 g/dL (13.5-17.0)
[2017-03-18] MEDS: MAGNESIUM OXIDE 400 MG TABLET PO SCH (09:41)
[2017-03-18] MEDS: LEVETIRACETAM 500 MG TABLET PO SCH ×2 (09:41→22:11)
[2017-03-18] MEDS: FOLIC ACID 1 MG TABLET PO SCH (09:41)
[2017-03-18] MEDS: CHOLECALCIFEROL (D3) 1,000 UNIT TABLET PO SCH (09:41)
[2017-03-18] MEDS: HYDROXYUREA 500 MG CAPSULE PO SCH (09:41)
[2017-03-18] MEDS: NORMAL SALINE 1000 ML 1,000 ML IV PRN (09:48)
--- NOTE | 2017-03-18 10:25 | PROGRESS NOTE E ---
Progress Note NAME: EMIL BARNES : 1990 AGE: 27Y DATE: 03/17/2017 ROOM: 301 SUBJECTIVE: The patient presents with history of sickle cell, now with swelling of the right lower extremity. The patient is not complaining of any significant discomfort in his right leg. He feels the swelling is decreasing. OBJECTIVE: The patient's leg is soft with some swelling as compared to the left side. It is nontender. ASSESSMENT: RIGHT LOWER EXTREMITY SWELLING OF UNKNOWN ETIOLOGY. MRI showed soft tissue as well as muscle edema of unknown etiology. He is improved on antibiotics and leg elevation. PLAN: I would recommend the patient have a duplex of the right lower extremity, rule out DVT. Other causes such as pelvic lymph node swelling from multiple causes are also a possibility. We will see the results of the ultrasound first. DICTATING PHYSICIAN: JAYE PAK M.D. [id number] PHY#: [id number] ID: [id number] JOB#: [id number] ACCT: [id number] cc: >
[2017-03-18 10:47] LABS: HEMATOCRIT 21.9 % (37.9-51.0); HGB HCT DIFFERENCE -0.6; MEAN CORPUSCULAR HGB CONC 32.5 g/dL (32.0-36.0); MEAN CORPUSCULAR VOLUME 92 fl (80-97); RED BLOOD COUNT 2.37 10^6/uL (4.35-5.55); RED CELL DISTRIBUTION WIDTH 16.3 % (11.5-14.0); WHITE BLOOD COUNT 14.5 10^3/uL (4.0-10.5)
[2017-03-18 10:48] LABS: HEMOGLOBIN 7.1 g/dL (13.5-17.0)
[2017-03-18 10:54] LABS: HEMATOCRIT 27.2 % (37.9-51.0); HEMOGLOBIN 8.8 g/dL (13.5-17.0); HGB HCT DIFFERENCE -0.8; MEAN CORPUSCULAR HEMOGLOBIN 30.1 pg (27.0-33.4); MEAN CORPUSCULAR HGB CONC 32.5 g/dL (32.0-36.0); MEAN CORPUSCULAR VOLUME 93 fl (80-97); RED BLOOD COUNT 2.93 10^6/uL (4.35-5.55); RED CELL DISTRIBUTION WIDTH 15.8 % (11.5-14.0); WHITE BLOOD COUNT 14.3 10^3/uL (4.0-10.5)
[2017-03-18] MEDS: VANCOMYCIN HCL 750 MG in DEXTROSE 5%-WATER 250 ML IV SCH (11:30)
--- NOTE | 2017-03-18 12:35 | PDOC PROGRESS REPORT ---
Subjective Progress Note for:: 03/18/17 Subjective:: feels better, less pain Physical Exam Vital Signs: Temp Pulse Resp BP Pulse Ox 98.3 F 83 20 105/60 90 L 03/18/17 07:51 03/18/17 07:51 03/18/17 07:51 03/18/17 07:51 03/18/17 07:51 Intake & Output 03/17/17 03/18/17 03/19/17 06:59 06:59 06:59 Intake Total 2416 1200 Output Total 0 200 Balance 2416 1000 Weight 66.9 kg 69.2 kg General appearance: PRESENT: no acute distress, cooperative Extremities exam: PRESENT: other - right thigh diffusely swollen, no crepitus, soft, not tight, no blisters. Results Laboratory Results: 03/18/17 10:15 03/16/17 03/17/17 03/17/17 17:44 10:00 14:38 WBC 14.5 H 14.5 H RBC 2.37 L 2.37 L Hgb 7.1 L D 7.1 L Hct 21.9 L 21.9 L MCV 92 92 MCH 30.0 30.0 MCHC 32.5 32.5 RDW 16.3 H 16.3 H Plt Count 413 413 Blood Type A POSITIVE Antibody Screen NEGATIVE 03/18/17 10:15 WBC 14.3 H RBC 2.93 L Hgb 8.8 L Hct 27.2 L MCV 93 MCH 30.1 MCHC 32.5 RDW 15.8 H Plt Count 452 H Blood Type Antibody Screen 03/16/17 02:45 Creatine Kinase 117 Impressions: Chest X-Ray 03/14/17 20:30 IMPRESSION: NO ACUTE RADIOGRAPHIC FINDING IN THE CHEST. Lower Extremity MRI 03/15/17 00:00 IMPRESSION: Severe increased fluid sensitive signal/edema of the musculature, faucia, and bone marrow of the right upper leg. Differential diagnosis includes cellulitis, myositis, necrotizing fasciitis, osteomyelitis; at-risk for compartment syndrome. Urgent orthopedic consultation advised. Assessment & Plan - Diagnosis (1) Swelling of limb, right Is this a current diagnosis for this admission?: YesPlan: of unknown etiology, improving with elevation and abx. check ct of abdomen/ pelvis to r/o lymphadenopathy
[2017-03-18 16:00] LABS: CALCIUM 8.5 mg/dL (8.4-10.2)
[2017-03-18 16:01] LABS: ANION GAP 7 (5-19); BLOOD UREA NITROGEN 22 mg/dL (7-20); CARBON DIOXIDE 25 mmol/L (22-30); CHLORIDE 105 mmol/L (98-107); CREATININE RESULT 0.99 mg/dL (0.52-1.25); GLUCOSE 94 mg/dL (75-110); SODIUM 136.7 mmol/L (137-145)
[2017-03-18 16:03] LABS: CREATININE RESULT 0.94 mg/dL (0.52-1.25)
[2017-03-18] MEDS: TAMSULOSIN HCL 0.4 MG CAP.SR.24H PO SCH (17:20)
--- NOTE | 2017-03-18 20:59 | PDOC PROGRESS REPORT ---
Subjective Progress Note for:: 03/18/17 Subjective:: He was seen by the bedside the swelling of the right leg is improving Physical Exam Vital Signs: Temp Pulse Resp BP Pulse Ox 97.7 F 93 19 100/61 97 03/18/17 16:55 03/18/17 19:00 03/18/17 16:55 03/18/17 16:55 03/18/17 16:55 Intake & Output 03/17/17 03/18/17 03/19/17 06:59 06:59 06:59 Intake Total 2416 1200 1000 Output Total 0 200 200 Balance 2416 1000 800 Weight 66.9 kg 69.2 kg General appearance: PRESENT: no acute distress Eye exam: PRESENT: PERRLA Respiratory exam: PRESENT: clear to auscultation ishan Cardiovascular exam: PRESENT: +S1, +S2 GI/Abdominal exam: PRESENT: soft Neurological exam: PRESENT: alert, CN II-XII grossly intact Results Laboratory Results: 03/18/17 10:15 03/17/17 14:38 03/16/17 03/17/17 03/17/17 17:44 10:00 10:00 WBC 14.5 H RBC 2.37 L Hgb 7.1 L D Hct 21.9 L MCV 92 MCH 30.0 MCHC 32.5 RDW 16.3 H Plt Count 413 Sodium Potassium Chloride Carbon Dioxide Anion Gap BUN Creatinine 0.94 Est GFR ( Amer) > 60 Est GFR (Non-Af Amer) > 60 Glucose Calcium Blood Type A POSITIVE Antibody Screen NEGATIVE 03/17/17 03/17/17 03/18/17 14:38 14:38 10:15 WBC 14.5 H 14.3 H RBC 2.37 L 2.93 L Hgb 7.1 L 8.8 L Hct 21.9 L 27.2 L MCV 92 93 MCH 30.0 30.1 MCHC 32.5 32.5 RDW 16.3 H 15.8 H Plt Count 413 452 H Sodium 136.7 L Potassium 4.0 Chloride 105 Carbon Dioxide 25 Anion Gap 7 BUN 22 H Creatinine 0.99 Est GFR ( Amer) > 60 Est GFR (Non-Af Amer) > 60 Glucose 94 Calcium 8.5 Blood Type Antibody Screen 03/16/17 02:45 Creatine Kinase 117 Impressions: Chest X-Ray 05/14/17 20:30 IMPRESSION: NO ACUTE RADIOGRAPHIC FINDING IN THE CHEST. Lower Extremity MRI 03/15/17 00:00 IMPRESSION: Severe increased fluid sensitive signal/edema of the musculature, faucia, and bone marrow of the right upper leg. Differential diagnosis includes cellulitis, myositis, necrotizing fasciitis, osteomyelitis; at-risk for compartment syndrome. Urgent orthopedic consultation advised. Abdomen/Pelvis CT 03/18/17 00:00 IMPRESSION: 1. Cardiomegaly with minimal pleural effusions. 2. Hepatomegaly. The spleen is small and calcified. 3. There appears to be slight thickening of the bladder wall. Is there clinical evidence of cystitis? Assessment & Plan - Diagnosis (1) Swelling of limb, right Is this a current diagnosis for this admission?: Yes (2) History of CVA with residual deficit Is this a current diagnosis for this admission?: Yes (3) History of seizure disorder Is this a current diagnosis for this admission?: Yes (4) Leukocytosis (leucocytosis) Qualifiers: Leukocytosis type: unspecified Qualified Code(s): D72.829 - Elevated white blood cell count, unspecified Is this a current diagnosis for this admission?: Yes (5) Sickle cell anemia Qualifiers: Sickle-cell associated disorders: with unspecified crisis Qualified Code(s): D57.00 - Hb-SS disease with crisis, unspecified; D57.0 - Hb-SS disease with crisis Is this a current diagnosis for this admission?: Yes (6) Sickle cell crisis Is this a current diagnosis for this admission?: Yes (7) Anemia due to blood loss Is this a current diagnosis for this admission?: Yes
[2017-03-19] MEDS: VANCOMYCIN HCL 750 MG in DEXTROSE 5%-WATER 250 ML IV SCH ×2 (00:06→12:55)
[2017-03-19] MEDS: ASPIRIN 81 MG TABLET, ENT COATED PO SCH ×4 (00:06→18:29)
[2017-03-19] MEDS: KETOROLAC TROMETHAMINE INJ/PF 30 MG/1 ML SDV IV SCH ×4 (00:06→18:29)
[2017-03-19] MEDS: AMPICILLIN SODIUM/SULBACTAM NA 3 GM in NORMAL SALINE 100 ML IV SCH ×3 (06:24→21:51)
[2017-03-19] MEDS: CHOLECALCIFEROL (D3) 1,000 UNIT TABLET PO SCH (10:35)
[2017-03-19] MEDS: FOLIC ACID 1 MG TABLET PO SCH (10:36)
[2017-03-19] MEDS: LEVETIRACETAM 500 MG TABLET PO SCH ×2 (10:36→21:51)
[2017-03-19] MEDS: MAGNESIUM OXIDE 400 MG TABLET PO SCH (10:36)
[2017-03-19] MEDS: HYDROXYUREA 500 MG CAPSULE PO SCH (10:36)
--- NOTE | 2017-03-19 10:48 | PROGRESS NOTE E ---
Progress Note NAME: EMIL BARNES : 1990 AGE: 27Y DATE: 03/19/2017 ROOM: 536 SUBJECTIVE: He denies any pains in the right thigh; however, it is still quite tender primarily around the medial side. He has no DVT on ultrasound. No evidence of compression compartment syndrome. PLAN: I ordered him to have physical therapy to start ambulating before he develops further weakness of the leg muscles. DICTATING PHYSICIAN: ALFONSO SUAREZ M.D. [id number] PHY#: [id number] ID: [id number] JOB#: [id number] ACCT: [id number] cc: >
[2017-03-19 11:31] LABS: CREATININE RESULT 1.01 mg/dL (0.52-1.25)
[2017-03-19 14:56] LABS: CREATINE KINASE 62 U/L (55-170)
[2017-03-19 18:21] LABS: PATH REVIEW PATHOLOGIST REVIEWED
[2017-03-19] MEDS: TAMSULOSIN HCL 0.4 MG CAP.SR.24H PO SCH (18:29)
--- NOTE | 2017-03-19 21:36 | PDOC PROGRESS REPORT ---
Subjective Progress Note for:: 03/19/17 Subjective:: Patient was seen by the bedside, patient seems to be improving on present IV antibiotic, will continue to treat with present regimen Physical Exam Vital Signs: Temp Pulse Resp BP Pulse Ox 98.6 F 82 16 109/68 100 03/19/17 15:25 03/19/17 15:25 03/19/17 15:25 03/19/17 15:25 03/19/17 15:25 Intake & Output 03/18/17 03/19/17 03/20/17 06:59 06:59 06:59 Intake Total 1200 1887 1446 Output Total 200 450 0 Balance 1000 1437 1446 Weight 69.2 kg General appearance: PRESENT: no acute distress Eye exam: PRESENT: PERRLA Respiratory exam: PRESENT: clear to auscultation ishan Cardiovascular exam: PRESENT: +S1, +S2 GI/Abdominal exam: PRESENT: soft Extremities exam: PRESENT: other - Swelling of the right thigh Neurological exam: PRESENT: alert Results Laboratory Results: 03/18/17 10:15 03/19/17 11:08 03/16/17 03/17/17 03/19/17 15:40 14:38 11:08 WBC 16.3 H RBC 1.56 L Hgb 4.7 L* Hct 14.3 L* MCV 92 MCH 30.2 MCHC 32.9 RDW 17.2 H Plt Count 406 Sodium 136.7 L Potassium 4.0 Chloride 105 Carbon Dioxide 25 Anion Gap 7 BUN 22 H Creatinine 0.99 1.01 Est GFR ( Amer) > 60 > 60 Est GFR (Non-Af Amer) > 60 > 60 Glucose 94 Calcium 8.5 03/16/17 03/17/17 03/19/17 02:45 14:38 07:50 Creatine Kinase 117 62 50 L CK-MB (CK-2) 03/19/17 07:50 Creatine Kinase CK-MB (CK-2) 0.29 Impressions: Chest X-Ray 03/14/17 20:30 IMPRESSION: NO ACUTE RADIOGRAPHIC FINDING IN THE CHEST. Lower Extremity MRI 03/15/17 00:00 IMPRESSION: Severe increased fluid sensitive signal/edema of the musculature, faucia, and bone marrow of the right upper leg. Differential diagnosis includes cellulitis, myositis, necrotizing fasciitis, osteomyelitis; at-risk for compartment syndrome. Urgent orthopedic consultation advised. Abdomen/Pelvis CT 03/18/17 00:00 IMPRESSION: 1. Cardiomegaly with minimal pleural effusions. 2. Hepatomegaly. The spleen is small and calcified. 3. There appears to be slight thickening of the bladder wall. Is there clinical evidence of cystitis? Assessment & Plan - Diagnosis (1) Swelling of limb, right Is this a current diagnosis for this admission?: Yes (2) History of CVA with residual deficit Is this a current diagnosis for this admission?: Yes (3) History of seizure disorder Is this a current diagnosis for this admission?: Yes (4) Leukocytosis (leucocytosis) Qualifiers: Leukocytosis type: unspecified Qualified Code(s): D72.829 - Elevated white blood cell count, unspecified Is this a current diagnosis for this admission?: Yes (5) Sickle cell anemia Qualifiers: Sickle-cell associated disorders: with unspecified crisis Qualified Code(s): D57.00 - Hb-SS disease with crisis, unspecified; D57.0 - Hb-SS disease with crisis Is this a current diagnosis for this admission?: Yes (6) Sickle cell crisis Is this a current diagnosis for this admission?: Yes (7) Anemia due to blood loss Is this a current diagnosis for this admission?: Yes
[2017-03-19] MEDS: NORMAL SALINE 1000 ML 1,000 ML IV PRN (21:51)
[2017-03-20] MEDS: NORMAL SALINE 1000 ML 1,000 ML IV PRN ×2 (01:00→13:08)
[2017-03-20] MEDS: ASPIRIN 81 MG TABLET, ENT COATED PO SCH ×5 (01:00→23:14)
[2017-03-20] MEDS: KETOROLAC TROMETHAMINE INJ/PF 30 MG/1 ML SDV IV SCH ×5 (01:00→23:14)
[2017-03-20] MEDS: AMPICILLIN SODIUM/SULBACTAM NA 3 GM in NORMAL SALINE 100 ML IV SCH ×3 (05:30→21:55)
[2017-03-20] MEDS: MAGNESIUM OXIDE 400 MG TABLET PO SCH (09:33)
[2017-03-20] MEDS: HYDROXYUREA 500 MG CAPSULE PO SCH (09:34)
[2017-03-20] MEDS: FOLIC ACID 1 MG TABLET PO SCH (09:34)
[2017-03-20] MEDS: CHOLECALCIFEROL (D3) 1,000 UNIT TABLET PO SCH (09:34)
[2017-03-20] MEDS: LEVETIRACETAM 500 MG TABLET PO SCH ×2 (09:34→21:55)
[2017-03-20] MEDS: HYDROCODONE/ACETAMINOPHEN 5-325 MG TABLET PO PRN ×2 (09:37→21:55)
--- NOTE | 2017-03-20 11:51 | PDOC PROGRESS REPORT ---
Subjective Progress Note for:: 03/20/17 Subjective:: Patient is admitted because of the right lower extremity swelling and infections. Patient's currently on IV antibiotic. Patient's had a physical therapy done today and still have a more difficult to walk around. Patient also have a sickle cell disease current hemoglobin is stable. Patient's denied any chest pain denied any shortness of the breath and no fever Physical Exam Vital Signs: Temp Pulse Resp BP Pulse Ox 98.1 F 78 16 111/67 98 03/20/17 07:10 03/20/17 07:10 03/20/17 07:10 03/20/17 07:10 03/20/17 07:10 Intake & Output 03/19/17 03/20/17 03/21/17 06:59 06:59 06:59 Intake Total 1887 3346 240 Output Total 450 0 Balance 1437 3346 240 General appearance: PRESENT: no acute distress Eye exam: PRESENT: PERRLA Respiratory exam: PRESENT: clear to auscultation ishan Cardiovascular exam: PRESENT: +S1, +S2 GI/Abdominal exam: ABSENT: ascites, diminished bowel sounds, distended, firm, guarding, hernia, hyperactive bowel sounds, hypoactive bowel sounds, mass, Sherman's sign, normal bowel sounds, organolmegaly, rebound, rigid, soft, tenderness, other Additional comments: Right lower extremity and thigh though some mild swelling is present but no redness Neurological exam: PRESENT: awake, oriented to person, oriented to place, oriented to time Additional comments: Patient's move all 4 extremities Results Laboratory Results: 03/18/17 10:15 03/19/17 11:08 03/16/17 03/17/17 15:40 14:38 WBC 16.3 H RBC 1.56 L Hgb 4.7 L* Hct 14.3 L* MCV 92 MCH 30.2 MCHC 32.9 RDW 17.2 H Plt Count 406 Sodium 136.7 L Potassium 4.0 Chloride 105 Carbon Dioxide 25 Anion Gap 7 BUN 22 H Creatinine 0.99 Est GFR ( Amer) > 60 Est GFR (Non-Af Amer) > 60 Glucose 94 Calcium 8.5 03/16/17 03/17/17 03/19/17 02:45 14:38 07:50 Creatine Kinase 117 62 50 L CK-MB (CK-2) 03/19/17 07:50 Creatine Kinase CK-MB (CK-2) 0.29 Impressions: Chest X-Ray 03/14/17 20:30 IMPRESSION: NO ACUTE RADIOGRAPHIC FINDING IN THE CHEST. Lower Extremity MRI 03/15/17 00:00 IMPRESSION: Severe increased fluid sensitive signal/edema of the musculature, faucia, and bone marrow of the right upper leg. Differential diagnosis includes cellulitis, myositis, necrotizing fasciitis, osteomyelitis; at-risk for compartment syndrome. Urgent orthopedic consultation advised. Abdomen/Pelvis CT 03/18/17 00:00 IMPRESSION: 1. Cardiomegaly with minimal pleural effusions. 2. Hepatomegaly. The spleen is small and calcified. 3. There appears to be slight thickening of the bladder wall. Is there clinical evidence of cystitis? Assessment & Plan - Diagnosis (1) Sepsis Qualifiers: Sepsis type: sepsis due to unspecified organism Qualified Code(s): A41.9 - Sepsis, unspecified organism Is this a current diagnosis for this admission?: YesPlan: Continues IV antibiotic (2) Swelling of limb, right Is this a current diagnosis for this admission?: YesPlan: Currently stable need of physical therapy (3) History of CVA with residual deficit Is this a current diagnosis for this admission?: YesPlan: Continues physical therapy (4) Sickle-cell disease with pain Is this a current diagnosis for this admission?: YesPlan: Hemoglobin is stable (5) Unsteady gait Plan: Continues physical therapy - Time Time Spent with patient: 15-24 minutes Medications reviewed and adjusted accordingly: Yes Anticipated discharge: Other Within: Other - Inpatient Certification Medical Necessity: Significant Comorbidiites Make Outpatient Treatment Too Risky Post Hospital Care: D/C Financial Analyst Documentation - Plan Summary Plan Summary: Continues current medications continues IV antibiotic
--- NOTE | 2017-03-20 15:03 | PROGRESS NOTE E ---
Progress Note NAME: EMIL BARNES : 1990 AGE: 27Y DATE: 03/20/2017 ROOM: 536 SUBJECTIVE: The pain in his right thigh is less this morning. The thigh itself still looks more swollen compared to the left thigh. There is no groin adenopathy palpated and no calf tenderness. He is still complaining of pain of about 4 out of 5 at the area just above the right knee. There is no DVT noted on ultrasound, and this may be more of lymphedema causing his symptoms. PLAN: I ordered Physical Therapy for him to eventually ambulate. DICTATING PHYSICIAN: ALFONSO SUAREZ M.D. [id number] PHY#: [id number] ID: [id number] JOB#: [id number] ACCT: [id number] cc:ALFONSO SUAREZ M.D. >
[2017-03-20] MEDS: VANCOMYCIN HCL 1,000 MG in DEXTROSE 5%-WATER 250 ML IV SCH (17:34)
[2017-03-20] MEDS: TAMSULOSIN HCL 0.4 MG CAP.SR.24H PO SCH (17:35)
[2017-03-21 05:28] LABS: ABSOLUTE BASOPHILS # (AUTO) 0.1 10^3/uL (0.0-0.2); ABSOLUTE EOSINOPHILS # (AUTO) 0.8 10^3/uL (0.0-0.6); ABSOLUTE LYMPHOCYTES (AUTO) 1.4 10^3/uL (0.5-4.7); ABSOLUTE MONOCYTES (AUTO) 1.3 10^3/uL (0.1-1.4); ABSOLUTE NEUT (AUTO) 8.9 10^3/uL (1.7-8.2); BASOPHILS % (AUTO) 1.1 % (0-2); EOSINOPHILS % (AUTO) 6.6 % (0-6); HEMOGLOBIN 8.4 g/dL (13.5-17.0); HGB HCT DIFFERENCE 0.2; LYMPHOCYTES % (AUTO) 11.5 % (13-45); MEAN CORPUSCULAR HEMOGLOBIN 30.6 pg (27.0-33.4); MEAN CORPUSCULAR HGB CONC 33.8 g/dL (32.0-36.0); MEAN CORPUSCULAR VOLUME 91 fl (80-97); MONOCYTES % (AUTO) 10.2 % (3-13); RED BLOOD COUNT 2.76 10^6/uL (4.35-5.55); RED CELL DISTRIBUTION WIDTH 15.5 % (11.5-14.0); SEGMENTED NEUTROPHILS % (AUTO) 70.6 % (42-78); WHITE BLOOD COUNT 12.6 10^3/uL (4.0-10.5)
[2017-03-21 05:45] LABS: ANION GAP 7 (5-19); BLOOD UREA NITROGEN 16 mg/dL (7-20); CALCIUM 8.8 mg/dL (8.4-10.2); CARBON DIOXIDE 22 mmol/L (22-30); CHLORIDE 115 mmol/L (98-107); CREATININE RESULT 0.93 mg/dL (0.52-1.25); GLUCOSE 82 mg/dL (75-110); POTASSIUM 4.5 mmol/L (3.6-5.0); SODIUM 143.8 mmol/L (137-145)
[2017-03-21] MEDS: KETOROLAC TROMETHAMINE INJ/PF 30 MG/1 ML SDV IV SCH ×2 (06:26→12:35)
[2017-03-21] MEDS: AMPICILLIN SODIUM/SULBACTAM NA 3 GM in NORMAL SALINE 100 ML IV SCH ×3 (06:26→22:58)
[2017-03-21] MEDS: NORMAL SALINE 1000 ML 1,000 ML IV PRN ×2 (06:26→09:30)
[2017-03-21] MEDS: ASPIRIN 81 MG TABLET, ENT COATED PO SCH ×4 (06:26→22:58)
[2017-03-21] MEDS: MAGNESIUM OXIDE 400 MG TABLET PO SCH (09:22)
[2017-03-21] MEDS: LEVETIRACETAM 500 MG TABLET PO SCH ×2 (09:22→22:58)
[2017-03-21] MEDS: FOLIC ACID 1 MG TABLET PO SCH (09:22)
[2017-03-21] MEDS: HYDROXYUREA 500 MG CAPSULE PO SCH (09:22)
[2017-03-21] MEDS: CHOLECALCIFEROL (D3) 1,000 UNIT TABLET PO SCH (09:22)
--- NOTE | 2017-03-21 10:55 | PDOC PROGRESS REPORT ---
Subjective Progress Note for:: 03/21/17 Subjective:: Patient is currently doing same state unable to do the physical therapy and claims that it hurts his leg. Patient's denied any chest pain denied any shortness of the breath Physical Exam Vital Signs: Temp Pulse Resp BP Pulse Ox 97.7 F 72 17 111/67 99 03/21/17 08:12 03/21/17 08:12 03/21/17 08:12 03/21/17 08:12 03/21/17 08:12 Intake & Output 03/20/17 03/21/17 03/22/17 06:59 06:59 06:59 Intake Total 3346 2880 Output Total 0 350 Balance 3346 2530 General appearance: PRESENT: no acute distress Eye exam: PRESENT: PERRLA Neck exam: ABSENT: carotid bruit, full ROM, JVD, lymphadenopathy, meningismus, tenderness, thyromegaly, tracheal deviation, tracheostomy, other Respiratory exam: PRESENT: clear to auscultation ishan Cardiovascular exam: PRESENT: +S1, +S2 GI/Abdominal exam: PRESENT: normal bowel sounds, soft Extremities exam: ABSENT: pedal edema Neurological exam: PRESENT: alert, awake, oriented to person Results Laboratory Results: 03/21/17 05:06 03/21/17 05:06 03/21/17 03/21/17 05:06 05:06 WBC 12.6 H RBC 2.76 L Hgb 8.4 L Hct 25.0 L MCV 91 MCH 30.6 MCHC 33.8 RDW 15.5 H Plt Count 559 H Seg Neutrophils % 70.6 Lymphocytes % 11.5 L Monocytes % 10.2 Eosinophils % 6.6 H Basophils % 1.1 Absolute Neutrophils 8.9 H Absolute Lymphocytes 1.4 Absolute Monocytes 1.3 Absolute Eosinophils 0.8 H Absolute Basophils 0.1 Sodium 143.8 Potassium 4.5 Chloride 115 H Carbon Dioxide 22 Anion Gap 7 BUN 16 Creatinine 0.93 Est GFR ( Amer) > 60 Est GFR (Non-Af Amer) > 60 Glucose 82 Calcium 8.8 03/16/17 03/17/17 03/19/17 02:45 14:38 07:50 Creatine Kinase 117 62 50 L CK-MB (CK-2) 03/19/17 07:50 Creatine Kinase CK-MB (CK-2) 0.29 Impressions: Chest X-Ray 03/14/17 20:30 IMPRESSION: NO ACUTE RADIOGRAPHIC FINDING IN THE CHEST. Lower Extremity MRI 03/15/17 00:00 IMPRESSION: Severe increased fluid sensitive signal/edema of the musculature, faucia, and bone marrow of the right upper leg. Differential diagnosis includes cellulitis, myositis, necrotizing fasciitis, osteomyelitis; at-risk for compartment syndrome. Urgent orthopedic consultation advised. Abdomen/Pelvis CT 03/18/17 00:00 IMPRESSION: 1. Cardiomegaly with minimal pleural effusions. 2. Hepatomegaly. The spleen is small and calcified. 3. There appears to be slight thickening of the bladder wall. Is there clinical evidence of cystitis? Assessment & Plan - Diagnosis (1) Sepsis Qualifiers: Sepsis type: sepsis due to unspecified organism Qualified Code(s): A41.9 - Sepsis, unspecified organism Is this a current diagnosis for this admission?: YesPlan: Continues IV antibiotic (2) Swelling of limb, right Is this a current diagnosis for this admission?: YesPlan: Currently stable need of physical therapy (3) History of CVA with residual deficit Is this a current diagnosis for this admission?: YesPlan: Continues physical therapy (4) Sickle-cell disease with pain Is this a current diagnosis for this admission?: YesPlan: Hemoglobin is stable - Time Time Spent with patient: 15-24 minutes Medications reviewed and adjusted accordingly: Yes Anticipated discharge: Other Within: Other - Inpatient Certification Medical Necessity: Need Close Monitoring Due to Risk of Patient Decompensation Post Hospital Care: D/C Regional Coordinator Documentation - Plan Summary Plan Summary: Discussed with the patient about to come out from the bed and sit in the chair and try to make more effort for the physical therapy otherwise patient is not getting better. Continues to IV antibiotic and follow with the surgery
[2017-03-21] MEDS: VANCOMYCIN HCL 1,000 MG in DEXTROSE 5%-WATER 250 ML IV SCH (17:40)
[2017-03-21] MEDS: TAMSULOSIN HCL 0.4 MG CAP.SR.24H PO SCH (17:40)
[2017-03-21] MEDS: HYDROCODONE/ACETAMINOPHEN 5-325 MG TABLET PO PRN (20:05)
[2017-03-22] MEDS: HYDROCODONE/ACETAMINOPHEN 5-325 MG TABLET PO PRN ×3 (04:07→21:34)
[2017-03-22] MEDS: AMPICILLIN SODIUM/SULBACTAM NA 3 GM in NORMAL SALINE 100 ML IV SCH (05:44)
[2017-03-22] MEDS: ASPIRIN 81 MG TABLET, ENT COATED PO SCH ×4 (05:44→23:53)
[2017-03-22 06:21] LABS: ANION GAP 7 (5-19); BLOOD UREA NITROGEN 14 mg/dL (7-20); CALCIUM 8.5 mg/dL (8.4-10.2); CARBON DIOXIDE 22 mmol/L (22-30); CHLORIDE 113 mmol/L (98-107); CREATININE RESULT 0.79 mg/dL (0.52-1.25); POTASSIUM 4.4 mmol/L (3.6-5.0); SODIUM 141.9 mmol/L (137-145)
[2017-03-22 06:22] LABS: GLUCOSE 88 mg/dL (75-110)
[2017-03-22] MEDS: MAGNESIUM OXIDE 400 MG TABLET PO SCH (10:32)
[2017-03-22] MEDS: FOLIC ACID 1 MG TABLET PO SCH (10:32)
[2017-03-22] MEDS: LEVETIRACETAM 500 MG TABLET PO SCH ×2 (10:32→21:34)
[2017-03-22] MEDS: CHOLECALCIFEROL (D3) 1,000 UNIT TABLET PO SCH (10:32)
[2017-03-22] MEDS: HYDROXYUREA 500 MG CAPSULE PO SCH (10:32)
--- NOTE | 2017-03-22 16:27 | PDOC PROGRESS REPORT ---
Subjective Progress Note for:: 03/22/17 Subjective:: He was seen by the bedside, there is still a lot of swelling of the right thigh , does not look like it is improving, MRI of the thigh will be requested to determine progression. Patient is not participating in physical therapy, lives in bed all day, I advised him to make effort to get out of the bed to chair. Presently, empirically on intravenous antibiotic. Physical Exam Vital Signs: Temp Pulse Resp BP Pulse Ox 98.6 F 67 16 124/80 100 03/22/17 11:16 03/22/17 15:07 03/22/17 15:07 03/22/17 15:07 03/22/17 15:07 Intake & Output 03/21/17 03/22/17 03/23/17 06:59 06:59 06:59 Intake Total 2880 3494 Output Total 350 600 Balance 2530 2894 General appearance: PRESENT: no acute distress Eye exam: PRESENT: PERRLA Respiratory exam: PRESENT: clear to auscultation ishan Cardiovascular exam: PRESENT: +S1, +S2 GI/Abdominal exam: PRESENT: soft Extremities exam: PRESENT: other - there is swelling ,tenderness of the Right thigh Neurological exam: PRESENT: alert, CN II-XII grossly intact Results Laboratory Results: 03/21/17 05:06 03/22/17 04:54 03/22/17 04:54 Sodium 141.9 Potassium 4.4 Chloride 113 H Carbon Dioxide 22 Anion Gap 7 BUN 14 Creatinine 0.79 Est GFR ( Amer) > 60 Est GFR (Non-Af Amer) > 60 Glucose 88 Calcium 8.5 03/16/17 03/17/17 03/19/17 02:45 14:38 07:50 Creatine Kinase 117 62 50 L CK-MB (CK-2) 03/19/17 07:50 Creatine Kinase CK-MB (CK-2) 0.29 Impressions: Chest X-Ray 03/14/17 20:30 IMPRESSION: NO ACUTE RADIOGRAPHIC FINDING IN THE CHEST. Lower Extremity MRI 03/15/17 00:00 IMPRESSION: Severe increased fluid sensitive signal/edema of the musculature, faucia, and bone marrow of the right upper leg. Differential diagnosis includes cellulitis, myositis, necrotizing fasciitis, osteomyelitis; at-risk for compartment syndrome. Urgent orthopedic consultation advised. Abdomen/Pelvis CT 03/18/17 00:00 IMPRESSION: 1. Cardiomegaly with minimal pleural effusions. 2. Hepatomegaly. The spleen is small and calcified. 3. There appears to be slight thickening of the bladder wall. Is there clinical evidence of cystitis? Assessment & Plan - Diagnosis (1) Swelling of limb, right Is this a current diagnosis for this admission?: YesPlan: MRI of the right thigh is requested (2) History of CVA with residual deficit Is this a current diagnosis for this admission?: Yes (3) History of seizure disorder Is this a current diagnosis for this admission?: Yes (4) Leukocytosis (leucocytosis) Qualifiers: Leukocytosis type: unspecified Qualified Code(s): D72.829 - Elevated white blood cell count, unspecified Is this a current diagnosis for this admission?: Yes (5) Sickle cell anemia Qualifiers: Sickle-cell associated disorders: with unspecified crisis Qualified Code(s): D57.00 - Hb-SS disease with crisis, unspecified; D57.0 - Hb-SS disease with crisis Is this a current diagnosis for this admission?: Yes (6) Sickle cell crisis Is this a current diagnosis for this admission?: Yes (7) Anemia due to blood loss Is this a current diagnosis for this admission?: Yes
[2017-03-22] MEDS: NORMAL SALINE 1000 ML 1,000 ML IV PRN (16:29)
[2017-03-22] MEDS: VANCOMYCIN HCL 1,000 MG in DEXTROSE 5%-WATER 250 ML IV SCH (17:15)
[2017-03-22] MEDS: TAMSULOSIN HCL 0.4 MG CAP.SR.24H PO SCH (17:16)
--- NOTE | 2017-03-23 02:52 | RADIOLOGY REPORT (SQ) ---
EXAM DESCRIPTION: MRI RT LOWER EXTREMITY COMBO COMPLETED DATE/TIME: 03/22/2017 9:24 pm REASON FOR STUDY: To determine progression COMPARISON: 03/15/2017. CT, 03/18/17, 03/28/2015. CR, 03/06/2017. TECHNIQUE: Right upper leg images acquired and stored on PACS. Multiplanar images include fat sensi tive sequences as T1, water sensitive sequences as FST2 or STIR, cartilage sensitive sequences as FSP D, and gradient echo sequences pre and post IV, 10cc Prohance Gadolinium. RADIATION DOSE: None LIMITATIONS: None. FINDINGS: Comminuted intertrochanteric hip fractures. Right -sided fracture is likely a 4 part frac ture including greater and lesser trochanter fragments ; dedicated bilateral CR correlation recommend ed. New ovoid 5.2 cm transaxial diameter complex fluid collection, likely hematoma, at the anteromedial r ight proximal femur. Extensive increased fluid sensitive signal -edema and fluid of deep musculature is somewhat decreased compared with exam from 03/15/2017. There is interval increased moderate subcutaneous soft tissue ed shantel. Mild heterogeneity of bone marrow persists. Likely 3.1 cm intra osseous hemangioma of the righ t iliac wing, stable. IMPRESSION: 1. Comminuted intertrochanteric fractures of bilateral proximal femurs. Bilateral hip radiographs recommended. 2. New 5.2-cm likely hematoma of the right proximal thigh. 3. Extensive right upper leg edema persists. COMMENT: This report was called to KATI Dsouza at02:32 on 03/23/2017. TECHNICAL DOCUMENTATION: JOB ID: [id number]- All Rights Reserved
[2017-03-23] MEDS: HYDROCODONE/ACETAMINOPHEN 5-325 MG TABLET PO PRN ×3 (04:17→19:45)
--- NOTE | 2017-03-23 04:46 | RADIOLOGY REPORT (SQ) ---
EXAM DESCRIPTION: SKULL 1-3 VIEWS COMPLETED DATE/TIME: 03/22/2017 8:08 pm REASON FOR STUDY: Lateral skull for foreign body eval COMPARISON: None. FLUOROSCOPY TIME: 1 images saved to PACS. TECHNIQUE: Intra-operative images acquired during surgical procedure to evaluate progress. NUMBER OF IMAGES: 1 LIMITATIONS: Lateral view only. FINDINGS: Lateral skull radiograph demonstrates surgical clips overlying the posterior nasopharynx s urgical clip overlying the mandible. No evidence of intracranial or intra orbital foreign body on la teral view. IMPRESSION: No evidence of intracranial or intraorbital radiopaque foreign body based on lateral rad iographs only. Limited. COMMENT: Quality ID [id number]: Final reports for procedures using fluoroscopy that document radiation exp osure indices, or exposure time and number of fluorographic images (if radiation exposure indices are not available) Please consult full operative report of the attending physician for description of the procedure. TECHNICAL DOCUMENTATION: JOB ID: [id number] [employer]- All Rights Reserved
[2017-03-23] MEDS: ASPIRIN 81 MG TABLET, ENT COATED PO SCH ×3 (06:35→17:40)
[2017-03-23 06:55] LABS: ANION GAP 7 (5-19); BLOOD UREA NITROGEN 10 mg/dL (7-20); CALCIUM 8.5 mg/dL (8.4-10.2); CARBON DIOXIDE 23 mmol/L (22-30); CHLORIDE 111 mmol/L (98-107); CREATININE RESULT 0.75 mg/dL (0.52-1.25); GLUCOSE 92 mg/dL (75-110); POTASSIUM 4.5 mmol/L (3.6-5.0); SODIUM 140.9 mmol/L (137-145)
--- NOTE | 2017-03-23 09:45 | RADIOLOGY REPORT (SQ) ---
EXAM DESCRIPTION: HIP BILATERAL COMPLETED DATE/TIME: 03/23/2017 8:38 am REASON FOR STUDY: Bilateral commuted hip Fx COMPARISON: 03/22/2017 right lower extremity MR. radiographs from early March. NUMBER OF VIEWS: Two views right hip. Two views left hip, 3 images. LIMITATIONS: None. FINDINGS: Right hip: Valgus deformity of the hip, comminuted inter trochanteric fracture is present . Generalized osteopenia. No pelvic fracture. Left hip: Mild varus deformity with comminuted intertrochanteric/subtrochanteric fracture. Generali zed osteopenia. No adjacent pelvic fracture identified. OTHER: No other significant finding. IMPRESSION: Bilateral hip fractures. TECHNICAL DOCUMENTATION: JOB ID: [id number]
[2017-03-23] MEDS: HYDROXYUREA 500 MG CAPSULE PO SCH (10:32)
[2017-03-23] MEDS: MAGNESIUM OXIDE 400 MG TABLET PO SCH (10:35)
[2017-03-23] MEDS: CHOLECALCIFEROL (D3) 1,000 UNIT TABLET PO SCH (10:35)
[2017-03-23] MEDS: LEVETIRACETAM 500 MG TABLET PO SCH ×2 (10:35→22:27)
[2017-03-23] MEDS: FOLIC ACID 1 MG TABLET PO SCH (10:35)
[2017-03-23] MEDS: TAMSULOSIN HCL 0.4 MG CAP.SR.24H PO SCH (17:41)
[2017-03-23] MEDS: VANCOMYCIN HCL 1,000 MG in DEXTROSE 5%-WATER 250 ML IV SCH (17:41)
--- NOTE | 2017-03-23 18:32 | PDOC PROGRESS REPORT ---
Subjective Progress Note for:: 03/23/17 Subjective:: Patient was seen at the bedside, MRI of the right lower extremity was done yesterday, it showed comminuted intertrochanteric hip fracture bilaterally. I had a long discussion with the family about this patient today at the bedside, orthopedic consultation is requested. Physical Exam Vital Signs: Temp Pulse Resp BP Pulse Ox 97.9 F 76 16 113/74 98 03/23/17 15:43 03/23/17 15:43 03/23/17 15:43 03/23/17 15:43 03/23/17 15:43 Intake & Output 03/22/17 03/23/17 03/24/17 06:59 06:59 06:59 Intake Total 3494 4320 Output Total 600 1665 Balance 2894 2655 General appearance: PRESENT: no acute distress Eye exam: PRESENT: PERRLA Respiratory exam: PRESENT: clear to auscultation ishan Cardiovascular exam: PRESENT: +S1, +S2 GI/Abdominal exam: PRESENT: soft Neurological exam: PRESENT: alert Results Laboratory Results: 03/21/17 05:06 03/23/17 06:17 03/23/17 06:17 Sodium 140.9 Potassium 4.5 Chloride 111 H Carbon Dioxide 23 Anion Gap 7 BUN 10 Creatinine 0.75 Est GFR ( Amer) > 60 Est GFR (Non-Af Amer) > 60 Glucose 92 Calcium 8.5 03/16/17 03/17/17 03/19/17 02:45 14:38 07:50 Creatine Kinase 117 62 50 L CK-MB (CK-2) 03/19/17 07:50 Creatine Kinase CK-MB (CK-2) 0.29 Impressions: Chest X-Ray 03/14/17 20:30 IMPRESSION: NO ACUTE RADIOGRAPHIC FINDING IN THE CHEST. Abdomen/Pelvis CT 03/18/17 00:00 IMPRESSION: 1. Cardiomegaly with minimal pleural effusions. 2. Hepatomegaly. The spleen is small and calcified. 3. There appears to be slight thickening of the bladder wall. Is there clinical evidence of cystitis? Lower Extremity MRI 03/22/17 00:00 IMPRESSION: 1. Comminuted intertrochanteric fractures of bilateral proximal femurs. Bilateral hip radiographs recommended. 2. New 5.2-cm likely hematoma of the right proximal thigh. 3. Extensive right upper leg edema persists. Skull X-Ray 03/22/17 00:00 IMPRESSION: No evidence of intracranial or intraorbital radiopaque foreign body based on lateral radiographs only. Limited. Hip X-Ray 03/23/17 03:19 IMPRESSION: Bilateral hip fractures. Assessment & Plan - Diagnosis (1) Swelling of limb, right Is this a current diagnosis for this admission?: Yes (2) History of CVA with residual deficit Is this a current diagnosis for this admission?: Yes (3) History of seizure disorder Is this a current diagnosis for this admission?: Yes (4) Leukocytosis (leucocytosis) Qualifiers: Leukocytosis type: unspecified Qualified Code(s): D72.829 - Elevated white blood cell count, unspecified Is this a current diagnosis for this admission?: Yes (5) Sickle cell anemia Qualifiers: Sickle-cell associated disorders: with unspecified crisis Qualified Code(s): D57.00 - Hb-SS disease with crisis, unspecified; D57.0 - Hb-SS disease with crisis Is this a current diagnosis for this admission?: Yes (6) Sickle cell crisis Is this a current diagnosis for this admission?: Yes (7) Anemia due to blood loss Is this a current diagnosis for this admission?: Yes (8) Bilateral intertrochanteric hip fractures Is this a current diagnosis for this admission?: YesPlan: Orthopedic consultation requested
[2017-03-23 18:53] LABS: ALANINE AMINOTRANSFERASE 41 U/L (21-72); ALBUMIN 2.3 g/dL (3.5-5.0); ALKALINE PHOSPHATASE 186 U/L (38-126); ANION GAP 5 (5-19); ASPARTATE AMINO TRANSFERASE 34 U/L (17-59); BILIRUBIN,DIRECT 0.7 mg/dL (0.0-0.4); BILIRUBIN,TOTAL 1.1 mg/dL (0.2-1.3); BLOOD UREA NITROGEN 11 mg/dL (7-20); CALCIUM 8.8 mg/dL (8.4-10.2); CARBON DIOXIDE 25 mmol/L (22-30); CHLORIDE 111 mmol/L (98-107); CREATININE RESULT 0.81 mg/dL (0.52-1.25); CREATININE RESULT 0.86 mg/dL (0.52-1.25); GLUCOSE 114 mg/dL (75-110); POTASSIUM 4.2 mmol/L (3.6-5.0); SODIUM 141.4 mmol/L (137-145); TOTAL PROTEIN 5.8 g/dL (6.3-8.2)
[2017-03-23 19:26] LABS: PROTHROMBIN TIME 15.9 SEC (11.4-15.4)
[2017-03-23 19:27] LABS: PARTIAL THROMBOPLASTIN TIME 35.2 SEC (23.5-35.8)
[2017-03-23 20:44] LABS: HEMATOCRIT 25.1 % (37.9-51.0); HEMOGLOBIN 8.3 g/dL (13.5-17.0); HGB HCT DIFFERENCE -0.2; MEAN CORPUSCULAR HEMOGLOBIN 30.9 pg (27.0-33.4); MEAN CORPUSCULAR HGB CONC 33.3 g/dL (32.0-36.0); MEAN CORPUSCULAR VOLUME 93 fl (80-97); RED CELL DISTRIBUTION WIDTH 15.7 % (11.5-14.0); WHITE BLOOD COUNT 10.9 10^3/uL (4.0-10.5)
[2017-03-23] MEDS: HEPARIN SOD (PORCINE) 5,000 UNIT/ML 1 ML SYRINGE SUBCUT SCH (22:27)
[2017-03-24] MEDS: ASPIRIN 81 MG TABLET, ENT COATED PO SCH ×5 (04:24→23:12)
[2017-03-24] MEDS: HYDROCODONE/ACETAMINOPHEN 5-325 MG TABLET PO PRN (05:54)
[2017-03-24] MEDS: HEPARIN SOD (PORCINE) 5,000 UNIT/ML 1 ML SYRINGE SUBCUT SCH ×3 (05:54→23:17)
[2017-03-24] MEDS ORDERED: DEXTROSE 40% GEL 15 GM TUBE PO PRN ×2 (06:36)
[2017-03-24] MEDS ORDERED: DEXTROSE 50%-WATER 25 GM/50 ML DISP.SYRIN IV PRN ×2 (06:36)
[2017-03-24] MEDS ORDERED: GLUCAGON,HUMAN RECOMB 1 MG INJ SUBCUT PRN (06:36)
[2017-03-24] MEDS ORDERED: NORMAL SALINE 1000 ML 1,000 ML IV PRN (06:40)
[2017-03-24] MEDS ORDERED: CEFAZOLIN 2 GM/D5W RTU 2 GM/50 ML RTUPB IV PRN (06:41)
--- NOTE | 2017-03-24 07:03 | PDOC PROGRESS REPORT ---
Subjective Progress Note for:: 03/24/17 Subjective:: Patient complaining of generalized pain Physical Exam Vital Signs: Temp Pulse Resp BP Pulse Ox 36.6 C 73 14 134/74 H 100 03/24/17 04:00 03/24/17 04:00 03/24/17 04:00 03/24/17 04:00 03/24/17 04:00 Intake & Output 03/23/17 03/24/17 03/25/17 06:59 06:59 06:59 Intake Total 4320 2930 Output Total 1665 Balance 2655 2930 Weight 78 kg General appearance: PRESENT: mild distress Head exam: PRESENT: normocephalic Respiratory exam: PRESENT: unlabored Cardiovascular exam: PRESENT: RRR Pulses: PRESENT: +1 pedal pulses bilateral Vascular exam: PRESENT: normal capillary refill GI/Abdominal exam: PRESENT: soft Extremities exam: PRESENT: other - Pain with passive range of motion of both lower extremities Psychiatric exam: PRESENT: appropriate affect, normal mood. ABSENT: homicidal ideation, suicidal ideation Skin exam: PRESENT: dry, intact, warm. ABSENT: cyanosis, rash Results Laboratory Results: 03/23/17 17:30 03/23/17 17:30 03/23/17 03/23/17 03/23/17 06:17 17:30 17:30 WBC 10.9 H RBC 2.70 L Hgb 8.3 L Hct 25.1 L MCV 93 MCH 30.9 MCHC 33.3 RDW 15.7 H Plt Count 574 H Sodium 140.9 Potassium 4.5 Chloride 111 H Carbon Dioxide 23 Anion Gap 7 BUN 10 Creatinine 0.75 0.81 Est GFR ( Amer) > 60 > 60 Est GFR (Non-Af Amer) > 60 > 60 Glucose 92 Calcium 8.5 Total Bilirubin AST ALT Alkaline Phosphatase Total Protein Albumin 03/23/17 17:30 WBC RBC Hgb Hct MCV MCH MCHC RDW Plt Count Sodium 141.4 Potassium 4.2 Chloride 111 H Carbon Dioxide 25 Anion Gap 5 BUN 11 Creatinine 0.86 Est GFR ( Amer) > 60 Est GFR (Non-Af Amer) > 60 Glucose 114 H Calcium 8.8 Total Bilirubin 1.1 AST 34 ALT 41 Alkaline Phosphatase 186 H Total Protein 5.8 L Albumin 2.3 L 03/16/17 03/17/17 03/19/17 02:45 14:38 07:50 Creatine Kinase 117 62 50 L CK-MB (CK-2) 03/19/17 07:50 Creatine Kinase CK-MB (CK-2) 0.29 Impressions: Chest X-Ray 03/14/17 20:30 IMPRESSION: NO ACUTE RADIOGRAPHIC FINDING IN THE CHEST. Abdomen/Pelvis CT 03/18/17 00:00 IMPRESSION: 1. Cardiomegaly with minimal pleural effusions. 2. Hepatomegaly. The spleen is small and calcified. 3. There appears to be slight thickening of the bladder wall. Is there clinical evidence of cystitis? Lower Extremity MRI 03/22/17 00:00 IMPRESSION: 1. Comminuted intertrochanteric fractures of bilateral proximal femurs. Bilateral hip radiographs recommended. 2. New 5.2-cm likely hematoma of the right proximal thigh. 3. Extensive right upper leg edema persists. Skull X-Ray 03/22/17 00:00 IMPRESSION: No evidence of intracranial or intraorbital radiopaque foreign body based on lateral radiographs only. Limited. Hip X-Ray 03/23/17 03:19 IMPRESSION: Bilateral hip fractures. Status: Imported from PACS Assessment & Plan - Diagnosis (1) Bilateral intertrochanteric hip fractures Is this a current diagnosis for this admission?: YesPlan: A 27-year-old black male with sickle cell disease and bilateral intertrochanteric femur fractures. Plan will be for open reduction internal fixation later today under choice anesthesia. Last approximately 1 hour and be associated with 200 cc of blood loss. The weightbearing as tolerated postoperatively. - Time Time Spent with patient: 25-34 minutes Anticipated discharge: SNF Within: Other
[2017-03-24 07:11] LABS: ABSOLUTE BASOPHILS # (AUTO) 0.1 10^3/uL (0.0-0.2); ABSOLUTE EOSINOPHILS # (AUTO) 0.3 10^3/uL (0.0-0.6); ABSOLUTE LYMPHOCYTES (AUTO) 1.2 10^3/uL (0.5-4.7); ABSOLUTE NEUT (AUTO) 6.3 10^3/uL (1.7-8.2); BASOPHILS % (AUTO) 1.1 % (0-2); EOSINOPHILS % (AUTO) 3.4 % (0-6); HEMATOCRIT 25.1 % (37.9-51.0); HEMOGLOBIN 8.5 g/dL (13.5-17.0); HGB HCT DIFFERENCE 0.4; LYMPHOCYTES % (AUTO) 13.4 % (13-45); MEAN CORPUSCULAR HEMOGLOBIN 30.9 pg (27.0-33.4); MEAN CORPUSCULAR HGB CONC 33.9 g/dL (32.0-36.0); MEAN CORPUSCULAR VOLUME 91 fl (80-97); MONOCYTES % (AUTO) 11.2 % (3-13); RED BLOOD COUNT 2.76 10^6/uL (4.35-5.55); RED CELL DISTRIBUTION WIDTH 15.4 % (11.5-14.0); SEGMENTED NEUTROPHILS % (AUTO) 70.9 % (42-78); WHITE BLOOD COUNT 8.9 10^3/uL (4.0-10.5)
[2017-03-24 07:28] LABS: ALANINE AMINOTRANSFERASE 38 U/L (21-72); ALBUMIN 2.4 g/dL (3.5-5.0); ALKALINE PHOSPHATASE 203 U/L (38-126); ANION GAP 7 (5-19); ASPARTATE AMINO TRANSFERASE 37 U/L (17-59); BILIRUBIN,DIRECT 0.5 mg/dL (0.0-0.4); BILIRUBIN,TOTAL 1.1 mg/dL (0.2-1.3); BLOOD UREA NITROGEN 9 mg/dL (7-20); CALCIUM 8.6 mg/dL (8.4-10.2); CARBON DIOXIDE 24 mmol/L (22-30); CHLORIDE 110 mmol/L (98-107); CREATININE RESULT 0.73 mg/dL (0.52-1.25); GLUCOSE 91 mg/dL (75-110); POTASSIUM 4.3 mmol/L (3.6-5.0); SODIUM 140.8 mmol/L (137-145); TOTAL PROTEIN 5.9 g/dL (6.3-8.2)
[2017-03-24] MEDS: HYDROXYUREA 500 MG CAPSULE PO SCH (09:37)
[2017-03-24] MEDS: CHOLECALCIFEROL (D3) 1,000 UNIT TABLET PO SCH (09:38)
[2017-03-24] MEDS: LEVETIRACETAM 500 MG TABLET PO SCH ×2 (09:38→23:12)
[2017-03-24] MEDS: FOLIC ACID 1 MG TABLET PO SCH (09:38)
[2017-03-24] MEDS: MAGNESIUM OXIDE 400 MG TABLET PO SCH (09:39)
[2017-03-24] MEDS ORDERED: FENTANYL CITRATE INJ/PF 250 MCG/5 ML AMPULE ONE (10:57)
[2017-03-24] MEDS ORDERED: MORPHINE SULFATE 10 MG/ML INJ ONE ×2 (10:57→17:45)
[2017-03-24] MEDS ORDERED: MIDAZOLAM 2 MG/2 ML INJ ONE (10:57)
[2017-03-24] MEDS ORDERED: ACETAMINOPHEN 100 ML IV ONE (10:58)
[2017-03-24] MEDS ORDERED: PROPOFOL INJ 200 MG/20 ML VIAL IV ONE (10:58)
[2017-03-24] MEDS ORDERED: MORPHINE SULFATE 10 MG/ML INJ IV PRN (11:40)
[2017-03-24] MEDS ORDERED: DIPHENHYDRAMINE HCL 50 MG/ML VIAL IV PRN (11:40)
[2017-03-24] MEDS ORDERED: FENTANYL CITRATE INJ/PF 100 MCG/2 ML AMPUL IV PRN ×3 (11:40)
[2017-03-24] MEDS ORDERED: MEPERIDINE HCL/PF INJ 25 MG/1 ML DISP.SYRIN IV PRN (11:40)
[2017-03-24] MEDS ORDERED: OXYCODONE-ACETAMINOPHEN 5-325 MG TABLET PO PRN ×2 (11:40)
[2017-03-24] MEDS ORDERED: PROMETHAZINE HCL INJ 25 MG/1 ML VIAL IV PRN ×2 (11:40)
--- NOTE | 2017-03-24 12:37 | Operative Report ---
Operative Report DATE OF SURGERY: 03/24/17 PREOPERATIVE DIAGNOSIS: Bilateral intertrochanteric femur fractures OPERATION: Open reduction and internal fixation of bilateral femur fractures SURGEON: YON FRASER ANESTHESIA: GA ESTIMATED BLOOD LOSS: 100 PROCEDURE: Implants used: Right 440 mm x 11 x 125 Girard gamma 3 nail space. 100 mm proximally to lock at 80 mm distal interlock Left 440 mm x 11 x 1 25 Elsi gamma 3 nail, 90 millimeter proximal interlock, 65 mm distal interlock Supine on the fracture table the right lower extremities prepped and draped in a sterile fashion. The limb was manipulated under fluoroscopic guidance to affected near anatomic reduction. Percutaneous pin is placed down through the greater trochanter into the proximal femoral metadiaphyseal canal and a combined reamer is used to fashion a cortical opening. Subsequently ball- tipped guide wisam was placed down the femur and the length is measured to be 440 mm. Subsequently gamma 3 4040 mm nail was advanced over the ball-tipped guide wisam and told to the appropriate depth the proximal interlock. The ball-tipped guidewire was removed. Displaced up into the femoral neck and head under fluoroscopic guidance and the proximal interlock is measured to be 100 mm. Subsequent proximal interlocking screw was advanced and then locked from above. Next under fluoroscopic guidance freehand a distal interlock was placed. At this point each of the wound was irrigated and closed with interrupted Vicryl followed by [place]. Sterile dressings were applied In analogous fashion attention is now moved to the left lower extremity and is treated in identical fashion with slightly different implant dimensions
[2017-03-24] MEDS ORDERED: KETOROLAC TROMETHAMINE 60 MG/2 ML SDV ONE (13:24)
[2017-03-24] MEDS ORDERED: ONDANSETRON HCL INJ/PF 4 MG/2 ML SDV ONE (13:24)
[2017-03-24] MEDS ORDERED: DEXAMETHASONE SOD PHOSPHATE INJ 4 MG/1 ML VIAL ONE (13:24)
[2017-03-24] MEDS ORDERED: SUCCINYLCHOLINE CHLORIDE INJ 200 MG/10 ML VIAL ONE (13:24)
[2017-03-24] MEDS ORDERED: FENTANYL CITRATE INJ/PF 100 MCG/2 ML AMPUL ONE (13:28)
--- NOTE | 2017-03-24 14:12 | RADIOLOGY REPORT (SQ) ---
EXAM DESCRIPTION: NO CHG FLUORO; HIP BILATERAL COMPLETED DATE/TIME: 03/24/2017 2:03 pm REASON FOR STUDY: ORIF BILATERAL HIPS ASSISTED WITH FLUORO IN OR COMPARISON: None. FLUOROSCOPY TIME: Total fluoro time is 1.6 minutes. 9 images saved to PACS. TECHNIQUE: Intra-operative images acquired during surgical procedure to evaluate progress. NUMBER OF IMAGES: 9 images. LIMITATIONS: None. FINDINGS: Surgical fixation of the fractures of the right and left hip with placement of hardware. IMPRESSION: IMAGE(S) OBTAINED DURING PROCEDURE. COMMENT: Quality ID [id number]: Final reports for procedures using fluoroscopy that document radiation exp osure indices, or exposure time and number of fluorographic images (if radiation exposure indices are not available) Please consult full operative report of the attending physician for description of the procedure. TECHNICAL DOCUMENTATION: JOB ID: [id number] [employer]- All Rights Reserved
--- NOTE | 2017-03-24 14:38 | PDOC PROGRESS REPORT ---
Subjective Progress Note for:: 03/24/17 Subjective:: Patient was seen by the bedside ,he is status post open reduction and internal fixations of both hips Physical Exam Vital Signs: Temp Pulse Resp BP Pulse Ox 97.6 F 100 16 124/76 96 03/24/17 12:41 03/24/17 12:41 03/24/17 12:41 03/24/17 12:41 03/24/17 12:41 Intake & Output 03/23/17 03/24/17 03/25/17 06:59 06:59 06:59 Intake Total 4320 2930 650 Output Total 1665 200 Balance 2655 2930 450 Weight 78 kg General appearance: PRESENT: no acute distress Eye exam: PRESENT: PERRLA Respiratory exam: PRESENT: clear to auscultation ishan Cardiovascular exam: PRESENT: +S1, +S2 GI/Abdominal exam: PRESENT: soft Neurological exam: PRESENT: alert Results Laboratory Results: 03/24/17 06:50 03/24/17 06:50 03/23/17 03/23/17 03/23/17 17:30 17:30 17:30 WBC 10.9 H RBC 2.70 L Hgb 8.3 L Hct 25.1 L MCV 93 MCH 30.9 MCHC 33.3 RDW 15.7 H Plt Count 574 H Seg Neutrophils % Lymphocytes % Monocytes % Eosinophils % Basophils % Absolute Neutrophils Absolute Lymphocytes Absolute Monocytes Absolute Eosinophils Absolute Basophils Sodium 141.4 Potassium 4.2 Chloride 111 H Carbon Dioxide 25 Anion Gap 5 BUN 11 Creatinine 0.81 0.86 Est GFR ( Amer) > 60 > 60 Est GFR (Non-Af Amer) > 60 > 60 Glucose 114 H Calcium 8.8 Total Bilirubin 1.1 AST 34 ALT 41 Alkaline Phosphatase 186 H Total Protein 5.8 L Albumin 2.3 L 03/24/17 03/24/17 06:50 06:50 WBC 8.9 RBC 2.76 L Hgb 8.5 L Hct 25.1 L MCV 91 MCH 30.9 MCHC 33.9 RDW 15.4 H Plt Count 565 H Seg Neutrophils % 70.9 Lymphocytes % 13.4 Monocytes % 11.2 Eosinophils % 3.4 Basophils % 1.1 Absolute Neutrophils 6.3 Absolute Lymphocytes 1.2 Absolute Monocytes 1.0 Absolute Eosinophils 0.3 Absolute Basophils 0.1 Sodium 140.8 Potassium 4.3 Chloride 110 H Carbon Dioxide 24 Anion Gap 7 BUN 9 Creatinine 0.73 Est GFR ( Amer) > 60 Est GFR (Non-Af Amer) > 60 Glucose 91 Calcium 8.6 Total Bilirubin 1.1 AST 37 ALT 38 Alkaline Phosphatase 203 H Total Protein 5.9 L Albumin 2.4 L 03/16/17 03/17/17 03/19/17 02:45 14:38 07:50 Creatine Kinase 117 62 50 L CK-MB (CK-2) 03/19/17 07:50 Creatine Kinase CK-MB (CK-2) 0.29 Impressions: Chest X-Ray 03/14/17 20:30 IMPRESSION: NO ACUTE RADIOGRAPHIC FINDING IN THE CHEST. Abdomen/Pelvis CT 03/18/17 00:00 IMPRESSION: 1. Cardiomegaly with minimal pleural effusions. 2. Hepatomegaly. The spleen is small and calcified. 3. There appears to be slight thickening of the bladder wall. Is there clinical evidence of cystitis? Lower Extremity MRI 03/22/17 00:00 IMPRESSION: 1. Comminuted intertrochanteric fractures of bilateral proximal femurs. Bilateral hip radiographs recommended. 2. New 5.2-cm likely hematoma of the right proximal thigh. 3. Extensive right upper leg edema persists. Skull X-Ray 03/22/17 00:00 IMPRESSION: No evidence of intracranial or intraorbital radiopaque foreign body based on lateral radiographs only. Limited. Fluoroscopy 03/24/17 00:00 IMPRESSION: IMAGE(S) OBTAINED DURING PROCEDURE. Hip X-Ray 03/24/17 00:00 IMPRESSION: IMAGE(S) OBTAINED DURING PROCEDURE. Assessment & Plan - Diagnosis (1) Swelling of limb, right Is this a current diagnosis for this admission?: Yes (2) History of CVA with residual deficit Is this a current diagnosis for this admission?: Yes (3) History of seizure disorder Is this a current diagnosis for this admission?: Yes (4) Leukocytosis (leucocytosis) Qualifiers: Leukocytosis type: unspecified Qualified Code(s): D72.829 - Elevated white blood cell count, unspecified Is this a current diagnosis for this admission?: Yes (5) Sickle cell anemia Qualifiers: Sickle-cell associated disorders: with unspecified crisis Qualified Code(s): D57.00 - Hb-SS disease with crisis, unspecified; D57.0 - Hb-SS disease with crisis Is this a current diagnosis for this admission?: Yes (6) Sickle cell crisis Is this a current diagnosis for this admission?: Yes (7) Anemia due to blood loss Is this a current diagnosis for this admission?: Yes (8) Bilateral intertrochanteric hip fractures Is this a current diagnosis for this admission?: Yes
[2017-03-24] MEDS ORDERED: ONDANSETRON 4 MG TAB.RAPDIS SL PRN (16:47)
[2017-03-24] MEDS: TAMSULOSIN HCL 0.4 MG CAP.SR.24H PO SCH (17:23)
[2017-03-24] MEDS: RINGERS SOLUTION,LACTATED 1,000 ML IV PRN (17:52)
[2017-03-24] MEDS: MORPHINE SULFATE 10 MG/ML INJ IV SCH ×2 (18:06→23:17)
[2017-03-24] MEDS ORDERED: ENOXAPARIN SODIUM INJ 30 MG/0.3 ML DISP.SYRIN SUBCUT SCH (22:00)
[2017-03-24] MEDS: CEFAZOLIN 2 GM/D5W RTU 2 GM/50 ML RTUPB IV SCH (23:12)
[2017-03-25] MEDS: MORPHINE SULFATE 10 MG/ML INJ IV SCH ×6 (00:19→05:28)
[2017-03-25] MEDS: HEPARIN SOD (PORCINE) 5,000 UNIT/ML 1 ML SYRINGE SUBCUT SCH ×3 (05:25→22:29)
[2017-03-25] MEDS: ASPIRIN 81 MG TABLET, ENT COATED PO SCH ×3 (05:27→18:23)
[2017-03-25] MEDS: CEFAZOLIN 2 GM/D5W RTU 2 GM/50 ML RTUPB IV SCH ×3 (05:28→22:29)
[2017-03-25 07:03] LABS: HEMATOCRIT 21.8 % (37.9-51.0); HGB HCT DIFFERENCE -0.5; MEAN CORPUSCULAR HEMOGLOBIN 29.7 pg (27.0-33.4); MEAN CORPUSCULAR HGB CONC 32.7 g/dL (32.0-36.0); MEAN CORPUSCULAR VOLUME 91 fl (80-97); RED CELL DISTRIBUTION WIDTH 15.3 % (11.5-14.0); WHITE BLOOD COUNT 16.6 10^3/uL (4.0-10.5)
[2017-03-25 07:09] LABS: ANION GAP 8 (5-19); BLOOD UREA NITROGEN 12 mg/dL (7-20); CALCIUM 8.8 mg/dL (8.4-10.2); CARBON DIOXIDE 24 mmol/L (22-30); CHLORIDE 109 mmol/L (98-107); CREATININE RESULT 0.79 mg/dL (0.52-1.25); GLUCOSE 100 mg/dL (75-110); POTASSIUM 4.1 mmol/L (3.6-5.0); SODIUM 141.2 mmol/L (137-145)
[2017-03-25 07:10] LABS: HEMOGLOBIN 7.1 g/dL (13.5-17.0)
[2017-03-25] MEDS: FOLIC ACID 1 MG TABLET PO SCH (09:17)
[2017-03-25] MEDS: MAGNESIUM OXIDE 400 MG TABLET PO SCH (09:17)
[2017-03-25] MEDS: HYDROXYUREA 500 MG CAPSULE PO SCH (09:17)
[2017-03-25] MEDS: LEVETIRACETAM 500 MG TABLET PO SCH ×2 (09:17→22:29)
[2017-03-25] MEDS: HYDROCODONE/ACETAMINOPHEN 5-325 MG TABLET PO PRN ×2 (09:18→16:28)
[2017-03-25] MEDS: CHOLECALCIFEROL (D3) 1,000 UNIT TABLET PO SCH (09:18)
[2017-03-25] MEDS: OXYCODONE HCL IR 5 MG TABLET PO PRN ×2 (13:29→22:33)
[2017-03-25 14:25] LABS: HEMATOCRIT 21.7 % (37.9-51.0); HGB HCT DIFFERENCE -0.4; MEAN CORPUSCULAR HEMOGLOBIN 30.1 pg (27.0-33.4); MEAN CORPUSCULAR HGB CONC 32.7 g/dL (32.0-36.0); MEAN CORPUSCULAR VOLUME 92 fl (80-97); RED BLOOD COUNT 2.35 10^6/uL (4.35-5.55); RED CELL DISTRIBUTION WIDTH 15.2 % (11.5-14.0); WHITE BLOOD COUNT 17.9 10^3/uL (4.0-10.5)
[2017-03-25 14:34] LABS: HEMOGLOBIN 7.1 g/dL (13.5-17.0)
[2017-03-25] MEDS: RINGERS SOLUTION,LACTATED 1,000 ML IV PRN (16:31)
[2017-03-25] MEDS ORDERED: MORPHINE SULFATE 10 MG/ML INJ ONE (16:43)
[2017-03-25] MEDS ORDERED: NORMAL SALINE 500 ML IV ONE (18:00)
[2017-03-25] MEDS: TAMSULOSIN HCL 0.4 MG CAP.SR.24H PO SCH (18:23)
--- NOTE | 2017-03-25 20:06 | PDOC PROGRESS REPORT ---
Subjective Progress Note for:: 03/25/17 Subjective:: Patient was seen by the bedside, the swelling on the right thigh is improved compared to previously is oozing fluid from the incision site which is good . The hemogram revealed hemoglobin,7 Physical Exam Vital Signs: Temp Pulse Resp BP Pulse Ox 97.7 F 99 16 142/83 H 100 03/25/17 19:57 03/25/17 19:57 03/25/17 19:57 03/25/17 19:57 03/25/17 19:57 Intake & Output 03/24/17 03/25/17 03/26/17 06:59 06:59 06:59 Intake Total 2930 85029 700 Output Total 730 Balance 2930 07960 700 Weight 78 kg General appearance: PRESENT: no acute distress Eye exam: PRESENT: PERRLA Respiratory exam: PRESENT: clear to auscultation ishan Cardiovascular exam: PRESENT: +S1, +S2 Results Laboratory Results: 03/25/17 14:12 03/25/17 06:24 03/25/17 03/25/17 03/25/17 06:24 06:24 14:12 WBC 16.6 H 17.9 H RBC 2.40 L 2.35 L Hgb 7.1 L 7.1 L Hct 21.8 L 21.7 L MCV 91 92 MCH 29.7 30.1 MCHC 32.7 32.7 RDW 15.3 H 15.2 H Plt Count 513 H 496 H Sodium 141.2 Potassium 4.1 Chloride 109 H Carbon Dioxide 24 Anion Gap 8 BUN 12 Creatinine 0.79 Est GFR ( Amer) > 60 Est GFR (Non-Af Amer) > 60 Glucose 100 Calcium 8.8 03/16/17 03/17/17 03/19/17 02:45 14:38 07:50 Creatine Kinase 117 62 50 L CK-MB (CK-2) 03/19/17 07:50 Creatine Kinase CK-MB (CK-2) 0.29 Impressions: Chest X-Ray 03/14/17 20:30 IMPRESSION: NO ACUTE RADIOGRAPHIC FINDING IN THE CHEST. Abdomen/Pelvis CT 03/18/17 00:00 IMPRESSION: 1. Cardiomegaly with minimal pleural effusions. 2. Hepatomegaly. The spleen is small and calcified. 3. There appears to be slight thickening of the bladder wall. Is there clinical evidence of cystitis? Lower Extremity MRI 03/22/17 00:00 IMPRESSION: 1. Comminuted intertrochanteric fractures of bilateral proximal femurs. Bilateral hip radiographs recommended. 2. New 5.2-cm likely hematoma of the right proximal thigh. 3. Extensive right upper leg edema persists. Skull X-Ray 03/22/17 00:00 IMPRESSION: No evidence of intracranial or intraorbital radiopaque foreign body based on lateral radiographs only. Limited. Fluoroscopy 03/24/17 00:00 IMPRESSION: IMAGE(S) OBTAINED DURING PROCEDURE. Hip X-Ray 03/24/17 00:00 IMPRESSION: IMAGE(S) OBTAINED DURING PROCEDURE. Assessment & Plan - Diagnosis (1) Swelling of limb, right Is this a current diagnosis for this admission?: Yes (2) History of CVA with residual deficit Is this a current diagnosis for this admission?: Yes (3) History of seizure disorder Is this a current diagnosis for this admission?: Yes (4) Leukocytosis (leucocytosis) Qualifiers: Leukocytosis type: unspecified Qualified Code(s): D72.829 - Elevated white blood cell count, unspecified Is this a current diagnosis for this admission?: Yes (5) Sickle cell anemia Qualifiers: Sickle-cell associated disorders: with unspecified crisis Qualified Code(s): D57.00 - Hb-SS disease with crisis, unspecified; D57.0 - Hb-SS disease with crisis Is this a current diagnosis for this admission?: Yes (6) Sickle cell crisis Is this a current diagnosis for this admission?: Yes (7) Anemia due to blood loss Is this a current diagnosis for this admission?: Yes (8) Bilateral intertrochanteric hip fractures Is this a current diagnosis for this admission?: Yes
[2017-03-26] MEDS: ASPIRIN 81 MG TABLET, ENT COATED PO SCH ×4 (00:18→17:58)
[2017-03-26] MEDS: CEFAZOLIN 2 GM/D5W RTU 2 GM/50 ML RTUPB IV SCH ×2 (05:35→13:42)
[2017-03-26] MEDS: OXYCODONE HCL IR 5 MG TABLET PO PRN ×3 (05:35→21:41)
[2017-03-26] MEDS: HEPARIN SOD (PORCINE) 5,000 UNIT/ML 1 ML SYRINGE SUBCUT SCH ×3 (05:35→21:40)
--- NOTE | 2017-03-26 06:48 | PDOC PROGRESS REPORT ---
Subjective Progress Note for:: 03/26/17 Subjective:: Patient with no complaints Physical Exam Vital Signs: Temp Pulse Resp BP Pulse Ox 36.8 C 94 16 122/77 100 03/26/17 04:00 03/26/17 04:00 03/26/17 04:00 03/26/17 04:00 03/26/17 04:00 Intake & Output 03/24/17 03/25/17 03/26/17 06:59 06:59 06:59 Intake Total 2930 00055 1670 Output Total 730 850 Balance 2930 91103 820 Weight 78 kg General appearance: PRESENT: no acute distress Head exam: PRESENT: normocephalic Respiratory exam: PRESENT: unlabored Cardiovascular exam: PRESENT: RRR Pulses: PRESENT: +1 pedal pulses bilateral Vascular exam: PRESENT: normal capillary refill GI/Abdominal exam: PRESENT: soft Rectal exam: PRESENT: deferred Musculoskeletal exam: PRESENT: other - Bilateral lower extremity OpSite dressings with serous drainage Results Laboratory Results: 03/25/17 14:12 03/25/17 06:24 03/25/17 03/25/17 03/25/17 06:24 06:24 14:12 WBC 16.6 H 17.9 H RBC 2.40 L 2.35 L Hgb 7.1 L 7.1 L Hct 21.8 L 21.7 L MCV 91 92 MCH 29.7 30.1 MCHC 32.7 32.7 RDW 15.3 H 15.2 H Plt Count 513 H 496 H Sodium 141.2 Potassium 4.1 Chloride 109 H Carbon Dioxide 24 Anion Gap 8 BUN 12 Creatinine 0.79 Est GFR ( Amer) > 60 Est GFR (Non-Af Amer) > 60 Glucose 100 Calcium 8.8 03/16/17 03/17/17 03/19/17 02:45 14:38 07:50 Creatine Kinase 117 62 50 L CK-MB (CK-2) 03/19/17 07:50 Creatine Kinase CK-MB (CK-2) 0.29 Impressions: Chest X-Ray 03/14/17 20:30 IMPRESSION: NO ACUTE RADIOGRAPHIC FINDING IN THE CHEST. Abdomen/Pelvis CT 03/18/17 00:00 IMPRESSION: 1. Cardiomegaly with minimal pleural effusions. 2. Hepatomegaly. The spleen is small and calcified. 3. There appears to be slight thickening of the bladder wall. Is there clinical evidence of cystitis? Lower Extremity MRI 03/22/17 00:00 IMPRESSION: 1. Comminuted intertrochanteric fractures of bilateral proximal femurs. Bilateral hip radiographs recommended. 2. New 5.2-cm likely hematoma of the right proximal thigh. 3. Extensive right upper leg edema persists. Skull X-Ray 03/22/17 00:00 IMPRESSION: No evidence of intracranial or intraorbital radiopaque foreign body based on lateral radiographs only. Limited. Fluoroscopy 03/24/17 00:00 IMPRESSION: IMAGE(S) OBTAINED DURING PROCEDURE. Hip X-Ray 03/24/17 00:00 IMPRESSION: IMAGE(S) OBTAINED DURING PROCEDURE. Status: Imported from PACS Assessment & Plan - Diagnosis (1) Bilateral intertrochanteric hip fractures Is this a current diagnosis for this admission?: YesPlan: 27-year-old black male with sickle cell disease status post open reduction internal fixation of bilateral hip fractures. Overall postoperative course has been relatively uneventful. Continues to have drainage from the wounds presumably secondary to interstitial edema. Dressings can be changed as needed. - Time Time Spent with patient: 15-24 minutes Anticipated discharge: SNF Within: Other
[2017-03-26] MEDS: LEVETIRACETAM 500 MG TABLET PO SCH ×2 (10:52→21:41)
[2017-03-26] MEDS: CHOLECALCIFEROL (D3) 1,000 UNIT TABLET PO SCH (10:52)
[2017-03-26] MEDS: FOLIC ACID 1 MG TABLET PO SCH (10:52)
[2017-03-26] MEDS: MAGNESIUM OXIDE 400 MG TABLET PO SCH (10:52)
[2017-03-26] MEDS: HYDROXYUREA 500 MG CAPSULE PO SCH (10:53)
[2017-03-26 13:02] LABS: ABSOLUTE BASOPHILS # (AUTO) 0.1 10^3/uL (0.0-0.2); ABSOLUTE EOSINOPHILS # (AUTO) 0.4 10^3/uL (0.0-0.6); ABSOLUTE LYMPHOCYTES (AUTO) 2.2 10^3/uL (0.5-4.7); ABSOLUTE NEUT (AUTO) 12.7 10^3/uL (1.7-8.2); BASOPHILS % (AUTO) 0.5 % (0-2); EOSINOPHILS % (AUTO) 2.5 % (0-6); HEMATOCRIT 20.1 % (37.9-51.0); HGB HCT DIFFERENCE -0.3; LYMPHOCYTES % (AUTO) 12.4 % (13-45); MEAN CORPUSCULAR HEMOGLOBIN 30.4 pg (27.0-33.4); MEAN CORPUSCULAR HGB CONC 32.9 g/dL (32.0-36.0); MEAN CORPUSCULAR VOLUME 92 fl (80-97); MONOCYTES % (AUTO) 11.6 % (3-13); RED BLOOD COUNT 2.18 10^6/uL (4.35-5.55); RED CELL DISTRIBUTION WIDTH 15.6 % (11.5-14.0); WHITE BLOOD COUNT 17.4 10^3/uL (4.0-10.5)
[2017-03-26 13:07] LABS: HEMOGLOBIN 6.6 g/dL (13.5-17.0)
[2017-03-26 13:21] LABS: ALANINE AMINOTRANSFERASE 37 U/L (21-72); ALBUMIN 2.2 g/dL (3.5-5.0); ALKALINE PHOSPHATASE 202 U/L (38-126); ANION GAP 6 (5-19); ASPARTATE AMINO TRANSFERASE 34 U/L (17-59); BILIRUBIN,DIRECT 0.4 mg/dL (0.0-0.4); BILIRUBIN,TOTAL 0.6 mg/dL (0.2-1.3); BLOOD UREA NITROGEN 7 mg/dL (7-20); CALCIUM 8.9 mg/dL (8.4-10.2); CARBON DIOXIDE 29 mmol/L (22-30); CHLORIDE 105 mmol/L (98-107); GLUCOSE 101 mg/dL (75-110); POTASSIUM 4.1 mmol/L (3.6-5.0); SODIUM 140.1 mmol/L (137-145); TOTAL PROTEIN 5.4 g/dL (6.3-8.2)
[2017-03-26] MEDS: HYDROCODONE/ACETAMINOPHEN 5-325 MG TABLET PO PRN ×2 (14:17→19:53)
--- NOTE | 2017-03-26 17:05 | PDOC PROGRESS REPORT ---
Subjective Progress Note for:: 03/26/17 Subjective:: Patient is seen by the bedside, he had blood transfusion today Physical Exam Vital Signs: Temp Pulse Resp BP Pulse Ox 99.4 F 91 14 127/84 H 100 03/26/17 16:29 03/26/17 16:29 03/26/17 16:29 03/26/17 16:29 03/26/17 16:29 Intake & Output 03/25/17 03/26/17 03/27/17 06:59 06:59 06:59 Intake Total 89288 1670 250 Output Total 730 850 Balance 04691 820 250 General appearance: PRESENT: no acute distress Eye exam: PRESENT: PERRLA Respiratory exam: PRESENT: clear to auscultation ishan Cardiovascular exam: PRESENT: +S1, +S2 GI/Abdominal exam: PRESENT: soft Neurological exam: PRESENT: alert Results Laboratory Results: 03/26/17 12:49 03/26/17 12:49 03/26/17 03/26/17 03/26/17 12:49 12:49 14:28 WBC 17.4 H RBC 2.18 L Hgb 6.6 L Hct 20.1 L MCV 92 MCH 30.4 MCHC 32.9 RDW 15.6 H Plt Count 482 H Seg Neutrophils % 73.0 Lymphocytes % 12.4 L Monocytes % 11.6 Eosinophils % 2.5 Basophils % 0.5 Absolute Neutrophils 12.7 H Absolute Lymphocytes 2.2 Absolute Monocytes 2.0 H Absolute Eosinophils 0.4 Absolute Basophils 0.1 Sodium 140.1 Potassium 4.1 Chloride 105 Carbon Dioxide 29 Anion Gap 6 BUN 7 Creatinine 0.80 Est GFR ( Amer) > 60 Est GFR (Non-Af Amer) > 60 Glucose 101 Calcium 8.9 Total Bilirubin 0.6 AST 34 ALT 37 Alkaline Phosphatase 202 H Total Protein 5.4 L Albumin 2.2 L Blood Type A POSITIVE Antibody Screen NEGATIVE 03/16/17 03/17/17 03/19/17 02:45 14:38 07:50 Creatine Kinase 117 62 50 L CK-MB (CK-2) 03/19/17 07:50 Creatine Kinase CK-MB (CK-2) 0.29 Impressions: Chest X-Ray 03/14/17 20:30 IMPRESSION: NO ACUTE RADIOGRAPHIC FINDING IN THE CHEST. Abdomen/Pelvis CT 03/18/17 00:00 IMPRESSION: 1. Cardiomegaly with minimal pleural effusions. 2. Hepatomegaly. The spleen is small and calcified. 3. There appears to be slight thickening of the bladder wall. Is there clinical evidence of cystitis? Lower Extremity MRI 03/22/17 00:00 IMPRESSION: 1. Comminuted intertrochanteric fractures of bilateral proximal femurs. Bilateral hip radiographs recommended. 2. New 5.2-cm likely hematoma of the right proximal thigh. 3. Extensive right upper leg edema persists. Skull X-Ray 03/22/17 00:00 IMPRESSION: No evidence of intracranial or intraorbital radiopaque foreign body based on lateral radiographs only. Limited. Fluoroscopy 03/24/17 00:00 IMPRESSION: IMAGE(S) OBTAINED DURING PROCEDURE. Hip X-Ray 03/24/17 00:00 IMPRESSION: IMAGE(S) OBTAINED DURING PROCEDURE. Assessment & Plan - Diagnosis (1) Swelling of limb, right Is this a current diagnosis for this admission?: Yes (2) History of CVA with residual deficit Is this a current diagnosis for this admission?: Yes (3) History of seizure disorder Is this a current diagnosis for this admission?: Yes (4) Leukocytosis (leucocytosis) Qualifiers: Leukocytosis type: unspecified Qualified Code(s): D72.829 - Elevated white blood cell count, unspecified Is this a current diagnosis for this admission?: Yes (5) Sickle cell anemia Qualifiers: Sickle-cell associated disorders: with unspecified crisis Qualified Code(s): D57.00 - Hb-SS disease with crisis, unspecified; D57.0 - Hb-SS disease with crisis Is this a current diagnosis for this admission?: Yes (6) Sickle cell crisis Is this a current diagnosis for this admission?: Yes (7) Anemia due to blood loss Is this a current diagnosis for this admission?: Yes (8) Bilateral intertrochanteric hip fractures Is this a current diagnosis for this admission?: Yes
[2017-03-26] MEDS: TAMSULOSIN HCL 0.4 MG CAP.SR.24H PO SCH (17:58)
[2017-03-27] MEDS: ASPIRIN 81 MG TABLET, ENT COATED PO SCH ×5 (00:09→23:25)
[2017-03-27] MEDS: HYDROCODONE/ACETAMINOPHEN 5-325 MG TABLET PO PRN (01:26)
[2017-03-27] MEDS: HEPARIN SOD (PORCINE) 5,000 UNIT/ML 1 ML SYRINGE SUBCUT SCH ×3 (05:39→21:59)
[2017-03-27] MEDS: OXYCODONE HCL IR 5 MG TABLET PO PRN ×2 (09:59→21:59)
[2017-03-27] MEDS: HYDROXYUREA 500 MG CAPSULE PO SCH (09:59)
[2017-03-27] MEDS: MAGNESIUM OXIDE 400 MG TABLET PO SCH (09:59)
[2017-03-27] MEDS: LEVETIRACETAM 500 MG TABLET PO SCH ×2 (09:59→21:59)
[2017-03-27] MEDS: CHOLECALCIFEROL (D3) 1,000 UNIT TABLET PO SCH (09:59)
[2017-03-27] MEDS: FOLIC ACID 1 MG TABLET PO SCH (09:59)
--- NOTE | 2017-03-27 14:26 | PDOC PROGRESS REPORT ---
Subjective Progress Note for:: 03/27/17 Subjective:: Patient will need intensive physical therapy, discharge planning to make arrangements for transfer to rehab Physical Exam Vital Signs: Temp Pulse Resp BP Pulse Ox 97.4 F 90 16 123/82 100 03/27/17 11:21 03/27/17 11:21 03/27/17 11:21 03/27/17 11:21 03/27/17 11:21 Intake & Output 03/26/17 03/27/17 03/28/17 06:59 06:59 06:59 Intake Total 1670 3082 Output Total 850 1470 700 Balance 820 1612 -700 General appearance: PRESENT: no acute distress Eye exam: PRESENT: PERRLA Respiratory exam: PRESENT: clear to auscultation ishan Cardiovascular exam: PRESENT: +S1, +S2 GI/Abdominal exam: PRESENT: soft Neurological exam: PRESENT: alert Results Laboratory Results: 03/26/17 12:49 03/26/17 12:49 03/26/17 14:28 Blood Type A POSITIVE Antibody Screen NEGATIVE 03/16/17 03/17/17 03/19/17 02:45 14:38 07:50 Creatine Kinase 117 62 50 L CK-MB (CK-2) 03/19/17 07:50 Creatine Kinase CK-MB (CK-2) 0.29 Impressions: Chest X-Ray 03/14/17 20:30 IMPRESSION: NO ACUTE RADIOGRAPHIC FINDING IN THE CHEST. Abdomen/Pelvis CT 03/18/17 00:00 IMPRESSION: 1. Cardiomegaly with minimal pleural effusions. 2. Hepatomegaly. The spleen is small and calcified. 3. There appears to be slight thickening of the bladder wall. Is there clinical evidence of cystitis? Lower Extremity MRI 03/22/17 00:00 IMPRESSION: 1. Comminuted intertrochanteric fractures of bilateral proximal femurs. Bilateral hip radiographs recommended. 2. New 5.2-cm likely hematoma of the right proximal thigh. 3. Extensive right upper leg edema persists. Skull X-Ray 03/22/17 00:00 IMPRESSION: No evidence of intracranial or intraorbital radiopaque foreign body based on lateral radiographs only. Limited. Fluoroscopy 03/24/17 00:00 IMPRESSION: IMAGE(S) OBTAINED DURING PROCEDURE. Hip X-Ray 03/24/17 00:00 IMPRESSION: IMAGE(S) OBTAINED DURING PROCEDURE. Assessment & Plan - Diagnosis (1) Swelling of limb, right Is this a current diagnosis for this admission?: Yes (2) History of CVA with residual deficit Is this a current diagnosis for this admission?: Yes (3) History of seizure disorder Is this a current diagnosis for this admission?: Yes (4) Leukocytosis (leucocytosis) Qualifiers: Leukocytosis type: unspecified Qualified Code(s): D72.829 - Elevated white blood cell count, unspecified Is this a current diagnosis for this admission?: Yes (5) Sickle cell anemia Qualifiers: Sickle-cell associated disorders: with unspecified crisis Qualified Code(s): D57.00 - Hb-SS disease with crisis, unspecified; D57.0 - Hb-SS disease with crisis Is this a current diagnosis for this admission?: Yes (6) Sickle cell crisis Is this a current diagnosis for this admission?: Yes (7) Anemia due to blood loss Is this a current diagnosis for this admission?: Yes (8) Bilateral intertrochanteric hip fractures Is this a current diagnosis for this admission?: Yes
[2017-03-27 16:04] LABS: ABSOLUTE BASOPHILS # (AUTO) 0.1 10^3/uL (0.0-0.2); ABSOLUTE EOSINOPHILS # (AUTO) 0.5 10^3/uL (0.0-0.6); ABSOLUTE LYMPHOCYTES (AUTO) 1.8 10^3/uL (0.5-4.7); ABSOLUTE MONOCYTES (AUTO) 1.5 10^3/uL (0.1-1.4); ABSOLUTE NEUT (AUTO) 12.5 10^3/uL (1.7-8.2); BASOPHILS % (AUTO) 0.3 % (0-2); EOSINOPHILS % (AUTO) 2.8 % (0-6); HEMATOCRIT 27.5 % (37.9-51.0); HGB HCT DIFFERENCE 0.1; LYMPHOCYTES % (AUTO) 10.7 % (13-45); MEAN CORPUSCULAR HEMOGLOBIN 30.2 pg (27.0-33.4); MEAN CORPUSCULAR HGB CONC 33.5 g/dL (32.0-36.0); MEAN CORPUSCULAR VOLUME 90 fl (80-97); MONOCYTES % (AUTO) 9.4 % (3-13); RED BLOOD COUNT 3.05 10^6/uL (4.35-5.55); RED CELL DISTRIBUTION WIDTH 14.7 % (11.5-14.0); SEGMENTED NEUTROPHILS % (AUTO) 76.8 % (42-78); WHITE BLOOD COUNT 16.3 10^3/uL (4.0-10.5)
[2017-03-27 16:11] LABS: HEMOGLOBIN 9.2 g/dL (13.5-17.0)
[2017-03-27 16:23] LABS: ALANINE AMINOTRANSFERASE 39 U/L (21-72); ALBUMIN 2.5 g/dL (3.5-5.0); ALKALINE PHOSPHATASE 236 U/L (38-126); ANION GAP 6 (5-19); ASPARTATE AMINO TRANSFERASE 46 U/L (17-59); BILIRUBIN,DIRECT 0.5 mg/dL (0.0-0.4); BILIRUBIN,TOTAL 1.1 mg/dL (0.2-1.3); BLOOD UREA NITROGEN 8 mg/dL (7-20); CARBON DIOXIDE 30 mmol/L (22-30); CHLORIDE 103 mmol/L (98-107); CREATININE RESULT 0.75 mg/dL (0.52-1.25); GLUCOSE 92 mg/dL (75-110); POTASSIUM 4.6 mmol/L (3.6-5.0); SODIUM 139.3 mmol/L (137-145); TOTAL PROTEIN 6.1 g/dL (6.3-8.2)
[2017-03-27] MEDS: TAMSULOSIN HCL 0.4 MG CAP.SR.24H PO SCH (17:13)
[2017-03-28] MEDS: OXYCODONE HCL IR 5 MG TABLET PO PRN ×3 (04:09→18:09)
[2017-03-28] MEDS: HEPARIN SOD (PORCINE) 5,000 UNIT/ML 1 ML SYRINGE SUBCUT SCH ×3 (05:46→22:13)
[2017-03-28] MEDS: ASPIRIN 81 MG TABLET, ENT COATED PO SCH ×3 (05:46→18:09)
[2017-03-28 06:05] LABS: ABSOLUTE BASOPHILS # (AUTO) 0.1 10^3/uL (0.0-0.2); ABSOLUTE EOSINOPHILS # (AUTO) 0.4 10^3/uL (0.0-0.6); ABSOLUTE LYMPHOCYTES (AUTO) 1.2 10^3/uL (0.5-4.7); ABSOLUTE MONOCYTES (AUTO) 1.3 10^3/uL (0.1-1.4); ABSOLUTE NEUT (AUTO) 11.3 10^3/uL (1.7-8.2); BASOPHILS % (AUTO) 0.5 % (0-2); EOSINOPHILS % (AUTO) 2.6 % (0-6); HEMATOCRIT 24.6 % (37.9-51.0); HEMOGLOBIN 8.1 g/dL (13.5-17.0); HGB HCT DIFFERENCE -0.3; LYMPHOCYTES % (AUTO) 8.7 % (13-45); MEAN CORPUSCULAR HEMOGLOBIN 30.3 pg (27.0-33.4); MEAN CORPUSCULAR HGB CONC 33.1 g/dL (32.0-36.0); MEAN CORPUSCULAR VOLUME 91 fl (80-97); RED BLOOD COUNT 2.69 10^6/uL (4.35-5.55); RED CELL DISTRIBUTION WIDTH 14.9 % (11.5-14.0); SEGMENTED NEUTROPHILS % (AUTO) 79.2 % (42-78); WHITE BLOOD COUNT 14.2 10^3/uL (4.0-10.5)
[2017-03-28 06:26] LABS: ALANINE AMINOTRANSFERASE 40 U/L (21-72); ALBUMIN 2.3 g/dL (3.5-5.0); ALKALINE PHOSPHATASE 203 U/L (38-126); ANION GAP 10 (5-19); ASPARTATE AMINO TRANSFERASE 44 U/L (17-59); BILIRUBIN,DIRECT 0.5 mg/dL (0.0-0.4); BILIRUBIN,TOTAL 1.1 mg/dL (0.2-1.3); BLOOD UREA NITROGEN 8 mg/dL (7-20); CALCIUM 8.8 mg/dL (8.4-10.2); CARBON DIOXIDE 28 mmol/L (22-30); CHLORIDE 102 mmol/L (98-107); CREATININE RESULT 0.66 mg/dL (0.52-1.25); GLUCOSE 90 mg/dL (75-110); POTASSIUM 4.3 mmol/L (3.6-5.0); SODIUM 139.9 mmol/L (137-145); TOTAL PROTEIN 5.3 g/dL (6.3-8.2)
[2017-03-28] MEDS ORDERED: RINGERS SOLUTION,LACTATED 1,000 ML IV PRN (06:49)
[2017-03-28] MEDS: HYDROCODONE/ACETAMINOPHEN 5-325 MG TABLET PO PRN ×3 (08:40→20:53)
--- NOTE | 2017-03-28 09:22 | EKG REPORT ---
SEVERITY:- ABNORMAL ECG - PSVT - LIKELY AVNRT CONSIDER LEFT VENTRICULAR HYPERTROPHY PROLONGED QT INTERVAL : Confirmed by: Peter Cruz MD 28-Mar-2017 09:22:01
[2017-03-28] MEDS: FOLIC ACID 1 MG TABLET PO SCH (09:40)
[2017-03-28] MEDS: CHOLECALCIFEROL (D3) 1,000 UNIT TABLET PO SCH (09:40)
[2017-03-28] MEDS: HYDROXYUREA 500 MG CAPSULE PO SCH (09:40)
[2017-03-28] MEDS: LEVETIRACETAM 500 MG TABLET PO SCH ×2 (09:40→22:13)
[2017-03-28] MEDS: MAGNESIUM OXIDE 400 MG TABLET PO SCH (09:40)
--- NOTE | 2017-03-28 14:29 | PDOC PROGRESS REPORT ---
Subjective Progress Note for:: 03/28/17 Subjective:: Patient was seen by the bedside, he is not not moving much. Continues to lose fluid from the leg, Physical Exam Vital Signs: Temp Pulse Resp BP Pulse Ox 97.4 F 86 15 133/84 H 100 03/28/17 11:28 03/28/17 11:28 03/28/17 11:28 03/28/17 11:28 03/28/17 11:28 Intake & Output 03/27/17 03/28/17 03/29/17 06:59 06:59 06:59 Intake Total 3082 2210 Output Total 1470 1300 Balance 1612 910 Weight 73.4 kg General appearance: PRESENT: no acute distress Eye exam: PRESENT: PERRLA Cardiovascular exam: PRESENT: +S1, +S2 GI/Abdominal exam: PRESENT: soft Neurological exam: PRESENT: alert Results Laboratory Results: 03/28/17 05:25 03/28/17 05:25 03/27/17 03/27/17 03/28/17 15:52 15:52 05:25 WBC 16.3 H 14.2 H RBC 3.05 L 2.69 L Hgb 9.2 L D 8.1 L Hct 27.5 L 24.6 L MCV 90 91 MCH 30.2 30.3 MCHC 33.5 33.1 RDW 14.7 H 14.9 H Plt Count 515 H 446 Seg Neutrophils % 76.8 79.2 H Lymphocytes % 10.7 L 8.7 L Monocytes % 9.4 9.0 Eosinophils % 2.8 2.6 Basophils % 0.3 0.5 Absolute Neutrophils 12.5 H 11.3 H Absolute Lymphocytes 1.8 1.2 Absolute Monocytes 1.5 H 1.3 Absolute Eosinophils 0.5 0.4 Absolute Basophils 0.1 0.1 Sodium 139.3 Potassium 4.6 Chloride 103 Carbon Dioxide 30 Anion Gap 6 BUN 8 Creatinine 0.75 Est GFR ( Amer) > 60 Est GFR (Non-Af Amer) > 60 Glucose 92 Calcium 9.0 Total Bilirubin 1.1 AST 46 ALT 39 Alkaline Phosphatase 236 H Total Protein 6.1 L Albumin 2.5 L 03/28/17 05:25 WBC RBC Hgb Hct MCV MCH MCHC RDW Plt Count Seg Neutrophils % Lymphocytes % Monocytes % Eosinophils % Basophils % Absolute Neutrophils Absolute Lymphocytes Absolute Monocytes Absolute Eosinophils Absolute Basophils Sodium 139.9 Potassium 4.3 Chloride 102 Carbon Dioxide 28 Anion Gap 10 BUN 8 Creatinine 0.66 Est GFR ( Amer) > 60 Est GFR (Non-Af Amer) > 60 Glucose 90 Calcium 8.8 Total Bilirubin 1.1 AST 44 ALT 40 Alkaline Phosphatase 203 H Total Protein 5.3 L Albumin 2.3 L 03/16/17 03/17/17 03/19/17 02:45 14:38 07:50 Creatine Kinase 117 62 50 L CK-MB (CK-2) 03/19/17 07:50 Creatine Kinase CK-MB (CK-2) 0.29 Impressions: Chest X-Ray 03/14/17 20:30 IMPRESSION: NO ACUTE RADIOGRAPHIC FINDING IN THE CHEST. Abdomen/Pelvis CT 03/18/17 00:00 IMPRESSION: 1. Cardiomegaly with minimal pleural effusions. 2. Hepatomegaly. The spleen is small and calcified. 3. There appears to be slight thickening of the bladder wall. Is there clinical evidence of cystitis? Lower Extremity MRI 03/22/17 00:00 IMPRESSION: 1. Comminuted intertrochanteric fractures of bilateral proximal femurs. Bilateral hip radiographs recommended. 2. New 5.2-cm likely hematoma of the right proximal thigh. 3. Extensive right upper leg edema persists. Skull X-Ray 03/22/17 00:00 IMPRESSION: No evidence of intracranial or intraorbital radiopaque foreign body based on lateral radiographs only. Limited. Fluoroscopy 03/24/17 00:00 IMPRESSION: IMAGE(S) OBTAINED DURING PROCEDURE. Hip X-Ray 03/24/17 00:00 IMPRESSION: IMAGE(S) OBTAINED DURING PROCEDURE. Assessment & Plan - Diagnosis (1) Swelling of limb, right Is this a current diagnosis for this admission?: Yes (2) History of CVA with residual deficit Is this a current diagnosis for this admission?: Yes (3) History of seizure disorder Is this a current diagnosis for this admission?: Yes (4) Leukocytosis (leucocytosis) Qualifiers: Leukocytosis type: unspecified Qualified Code(s): D72.829 - Elevated white blood cell count, unspecified Is this a current diagnosis for this admission?: Yes (5) Sickle cell anemia Qualifiers: Sickle-cell associated disorders: with unspecified crisis Qualified Code(s): D57.00 - Hb-SS disease with crisis, unspecified; D57.0 - Hb-SS disease with crisis Is this a current diagnosis for this admission?: Yes (6) Sickle cell crisis Is this a current diagnosis for this admission?: Yes (7) Anemia due to blood loss Is this a current diagnosis for this admission?: Yes (8) Bilateral intertrochanteric hip fractures Is this a current diagnosis for this admission?: Yes
[2017-03-28] MEDS ORDERED: POTASSI CL 10 MEQ/D5-1/2NS 1L 10 MEQ/1,000 ML RTUINJ IV ONE (15:03)
[2017-03-28] MEDS: POTASSI CL 10 MEQ/D5-1/2NS 1L 1,000 ML IV PRN (15:05)
[2017-03-28] MEDS: TAMSULOSIN HCL 0.4 MG CAP.SR.24H PO SCH (18:09)
[2017-03-29] MEDS: POTASSI CL 10 MEQ/D5-1/2NS 1L 1,000 ML IV PRN ×2 (00:34→22:22)
[2017-03-29] MEDS: ASPIRIN 81 MG TABLET, ENT COATED PO SCH ×4 (00:34→17:10)
[2017-03-29] MEDS: HYDROCODONE/ACETAMINOPHEN 5-325 MG TABLET PO PRN ×2 (02:55→09:33)
[2017-03-29] MEDS: HEPARIN SOD (PORCINE) 5,000 UNIT/ML 1 ML SYRINGE SUBCUT SCH ×3 (05:41→21:32)
[2017-03-29] MEDS: OXYCODONE HCL IR 5 MG TABLET PO PRN ×3 (05:44→17:32)
[2017-03-29] MEDS: CHOLECALCIFEROL (D3) 1,000 UNIT TABLET PO SCH (09:28)
[2017-03-29] MEDS: HYDROXYUREA 500 MG CAPSULE PO SCH (09:28)
[2017-03-29] MEDS: LEVETIRACETAM 500 MG TABLET PO SCH ×2 (09:28→21:32)
[2017-03-29] MEDS: FOLIC ACID 1 MG TABLET PO SCH (09:28)
[2017-03-29] MEDS: MAGNESIUM OXIDE 400 MG TABLET PO SCH (09:28)
--- NOTE | 2017-03-29 13:21 | PDOC PROGRESS REPORT ---
Subjective Progress Note for:: 03/29/17 Subjective:: Patient was seen by the bedside, he is not not moving much. Continues to lose fluid from the leg, Physical Exam Vital Signs: Temp Pulse Resp BP Pulse Ox 98.5 F 90 16 132/71 H 100 03/29/17 11:37 03/29/17 11:37 03/29/17 11:37 03/29/17 11:37 03/29/17 11:37 Intake & Output 03/28/17 03/29/17 03/30/17 06:59 06:59 06:59 Intake Total 2210 3599 Output Total 1300 1325 Balance 910 2274 Weight 73.4 kg General appearance: PRESENT: no acute distress Eye exam: PRESENT: PERRLA Respiratory exam: PRESENT: clear to auscultation ishan Cardiovascular exam: PRESENT: +S1, +S2 GI/Abdominal exam: PRESENT: soft Results Laboratory Results: 03/28/17 05:25 03/28/17 05:25 03/16/17 03/17/17 03/19/17 02:45 14:38 07:50 Creatine Kinase 117 62 50 L CK-MB (CK-2) 03/19/17 07:50 Creatine Kinase CK-MB (CK-2) 0.29 Impressions: Chest X-Ray 03/14/17 20:30 IMPRESSION: NO ACUTE RADIOGRAPHIC FINDING IN THE CHEST. Abdomen/Pelvis CT 03/18/17 00:00 IMPRESSION: 1. Cardiomegaly with minimal pleural effusions. 2. Hepatomegaly. The spleen is small and calcified. 3. There appears to be slight thickening of the bladder wall. Is there clinical evidence of cystitis? Lower Extremity MRI 03/22/17 00:00 IMPRESSION: 1. Comminuted intertrochanteric fractures of bilateral proximal femurs. Bilateral hip radiographs recommended. 2. New 5.2-cm likely hematoma of the right proximal thigh. 3. Extensive right upper leg edema persists. Skull X-Ray 03/22/17 00:00 IMPRESSION: No evidence of intracranial or intraorbital radiopaque foreign body based on lateral radiographs only. Limited. Fluoroscopy 03/24/17 00:00 IMPRESSION: IMAGE(S) OBTAINED DURING PROCEDURE. Hip X-Ray 03/24/17 00:00 IMPRESSION: IMAGE(S) OBTAINED DURING PROCEDURE. Assessment & Plan - Diagnosis (1) Swelling of limb, right Is this a current diagnosis for this admission?: Yes (2) History of CVA with residual deficit Is this a current diagnosis for this admission?: Yes (3) History of seizure disorder Is this a current diagnosis for this admission?: Yes (4) Leukocytosis (leucocytosis) Qualifiers: Leukocytosis type: unspecified Qualified Code(s): D72.829 - Elevated white blood cell count, unspecified Is this a current diagnosis for this admission?: Yes (5) Sickle cell anemia Qualifiers: Sickle-cell associated disorders: with unspecified crisis Qualified Code(s): D57.00 - Hb-SS disease with crisis, unspecified; D57.0 - Hb-SS disease with crisis Is this a current diagnosis for this admission?: Yes (6) Sickle cell crisis Is this a current diagnosis for this admission?: Yes (7) Anemia due to blood loss Is this a current diagnosis for this admission?: Yes (8) Bilateral intertrochanteric hip fractures Is this a current diagnosis for this admission?: Yes
[2017-03-29 17:05] LABS: ABSOLUTE BASOPHILS # (AUTO) 0.1 10^3/uL (0.0-0.2); ABSOLUTE EOSINOPHILS # (AUTO) 0.4 10^3/uL (0.0-0.6); ABSOLUTE LYMPHOCYTES (AUTO) 1.5 10^3/uL (0.5-4.7); ABSOLUTE MONOCYTES (AUTO) 1.4 10^3/uL (0.1-1.4); ABSOLUTE NEUT (AUTO) 10.6 10^3/uL (1.7-8.2); BASOPHILS % (AUTO) 0.7 % (0-2); EOSINOPHILS % (AUTO) 2.8 % (0-6); HEMATOCRIT 28.1 % (37.9-51.0); HEMOGLOBIN 9.2 g/dL (13.5-17.0); HGB HCT DIFFERENCE -0.5; LYMPHOCYTES % (AUTO) 10.5 % (13-45); MEAN CORPUSCULAR HEMOGLOBIN 30.3 pg (27.0-33.4); MEAN CORPUSCULAR HGB CONC 32.7 g/dL (32.0-36.0); MEAN CORPUSCULAR VOLUME 93 fl (80-97); MONOCYTES % (AUTO) 9.9 % (3-13); RED BLOOD COUNT 3.04 10^6/uL (4.35-5.55); RED CELL DISTRIBUTION WIDTH 14.9 % (11.5-14.0); SEGMENTED NEUTROPHILS % (AUTO) 76.1 % (42-78); WHITE BLOOD COUNT 13.9 10^3/uL (4.0-10.5)
[2017-03-29] MEDS: TAMSULOSIN HCL 0.4 MG CAP.SR.24H PO SCH (17:10)
[2017-03-29 17:17] LABS: ANION GAP 7 (5-19); BLOOD UREA NITROGEN 7 mg/dL (7-20); CALCIUM 8.8 mg/dL (8.4-10.2); CARBON DIOXIDE 34 mmol/L (22-30); CHLORIDE 100 mmol/L (98-107); CREATININE RESULT 0.68 mg/dL (0.52-1.25); GLUCOSE 97 mg/dL (75-110); POTASSIUM 4.6 mmol/L (3.6-5.0); SODIUM 141.1 mmol/L (137-145)
[2017-03-30] MEDS: ASPIRIN 81 MG TABLET, ENT COATED PO SCH ×5 (01:20→23:22)
[2017-03-30] MEDS: OXYCODONE HCL IR 5 MG TABLET PO PRN ×2 (02:33→10:06)
[2017-03-30] MEDS: HEPARIN SOD (PORCINE) 5,000 UNIT/ML 1 ML SYRINGE SUBCUT SCH ×3 (05:17→22:16)
[2017-03-30] MEDS: HYDROXYUREA 500 MG CAPSULE PO SCH (10:05)
[2017-03-30] MEDS: CHOLECALCIFEROL (D3) 1,000 UNIT TABLET PO SCH (10:05)
[2017-03-30] MEDS: LEVETIRACETAM 500 MG TABLET PO SCH ×2 (10:05→22:16)
[2017-03-30] MEDS: MAGNESIUM OXIDE 400 MG TABLET PO SCH (10:05)
[2017-03-30] MEDS: FOLIC ACID 1 MG TABLET PO SCH (10:05)
[2017-03-30] MEDS: TAMSULOSIN HCL 0.4 MG CAP.SR.24H PO SCH (17:46)
[2017-03-30] MEDS: POTASSI CL 10 MEQ/D5-1/2NS 1L 1,000 ML IV PRN (22:16)
--- NOTE | 2017-03-30 22:52 | PDOC PROGRESS REPORT ---
Subjective Progress Note for:: 03/30/17 Subjective:: Denied any fever or chills. No overt hip pain. No difficulty with breathing, chest pain, nausea, vomiting, or abdominal pain. Physical Exam Vital Signs: Temp Pulse Resp BP Pulse Ox 97.4 F 86 15 128/78 H 100 03/30/17 08:00 03/30/17 08:00 03/30/17 08:00 03/30/17 08:00 03/30/17 08:00 Intake & Output 03/29/17 03/30/17 03/31/17 06:59 06:59 06:59 Intake Total 3599 2060 Output Total 1325 3325 Balance 2274 -1265 General appearance: PRESENT: no acute distress, well-developed, well-nourished Eye exam: PRESENT: conjunctiva pink, EOMI, PERRLA. ABSENT: scleral icterus Respiratory exam: PRESENT: clear to auscultation ishan Cardiovascular exam: PRESENT: RRR. ABSENT: diastolic murmur, rubs, systolic murmur GI/Abdominal exam: PRESENT: normal bowel sounds, soft. ABSENT: distended, guarding, mass, organolmegaly, rebound, tenderness Neurological exam: PRESENT: alert, awake, other - baseline mental limitation Psychiatric exam: PRESENT: appropriate affect, normal mood. ABSENT: agitated Skin exam: PRESENT: dry, warm, other - ORIF site dressing okay. No drainege or discharge. Results Laboratory Results: 03/29/17 16:57 03/29/17 16:57 03/29/17 03/29/17 16:57 16:57 WBC 13.9 H RBC 3.04 L Hgb 9.2 L Hct 28.1 L MCV 93 MCH 30.3 MCHC 32.7 RDW 14.9 H Plt Count 460 H Seg Neutrophils % 76.1 Lymphocytes % 10.5 L Monocytes % 9.9 Eosinophils % 2.8 Basophils % 0.7 Absolute Neutrophils 10.6 H Absolute Lymphocytes 1.5 Absolute Monocytes 1.4 Absolute Eosinophils 0.4 Absolute Basophils 0.1 Sodium 141.1 Potassium 4.6 Chloride 100 Carbon Dioxide 34 H Anion Gap 7 BUN 7 Creatinine 0.68 Est GFR ( Amer) > 60 Est GFR (Non-Af Amer) > 60 Glucose 97 Calcium 8.8 03/16/17 03/17/17 03/19/17 02:45 14:38 07:50 Creatine Kinase 117 62 50 L CK-MB (CK-2) 03/19/17 07:50 Creatine Kinase CK-MB (CK-2) 0.29 Impressions: Chest X-Ray 03/14/17 20:30 IMPRESSION: NO ACUTE RADIOGRAPHIC FINDING IN THE CHEST. Abdomen/Pelvis CT 03/18/17 00:00 IMPRESSION: 1. Cardiomegaly with minimal pleural effusions. 2. Hepatomegaly. The spleen is small and calcified. 3. There appears to be slight thickening of the bladder wall. Is there clinical evidence of cystitis? Lower Extremity MRI 03/22/17 00:00 IMPRESSION: 1. Comminuted intertrochanteric fractures of bilateral proximal femurs. Bilateral hip radiographs recommended. 2. New 5.2-cm likely hematoma of the right proximal thigh. 3. Extensive right upper leg edema persists. Skull X-Ray 03/22/17 00:00 IMPRESSION: No evidence of intracranial or intraorbital radiopaque foreign body based on lateral radiographs only. Limited. Fluoroscopy 03/24/17 00:00 IMPRESSION: IMAGE(S) OBTAINED DURING PROCEDURE. Hip X-Ray 03/24/17 00:00 IMPRESSION: IMAGE(S) OBTAINED DURING PROCEDURE. Assessment & Plan - Diagnosis (1) Bilateral intertrochanteric hip fractures Is this a current diagnosis for this admission?: YesPlan: Follow up on physical therapy intervention and possible transfer to SNF for rehabilitation. (2) Fall due to stumbling Qualifiers: Encounter type: subsequent encounter Qualified Code(s): W01.0XXD - Fall on same level from slipping, tripping and stumbling without subsequent striking against object, subsequent encounter Is this a current diagnosis for this admission?: YesPlan: Follow up on physical therapy intervention and possible transfer to SNF for rehabilitation. (3) History of CVA with residual deficit Is this a current diagnosis for this admission?: YesPlan: Continue current medication management. (4) History of seizure disorder Is this a current diagnosis for this admission?: YesPlan: Continue current medication management. (5) Sickle cell crisis Is this a current diagnosis for this admission?: YesPlan: Continue current medication management. - Time Time Spent with patient: 25-34 minutes Medications reviewed and adjusted accordingly: Yes Anticipated discharge: SNF Within: Other - Inpatient Certification Medical Necessity: Need Close Monitoring Due to Risk of Patient Decompensation, Need For Continuous Telemetry Monitoring, Need for Pain Control, Risk of Complication if Not Cared For in Hospital Post Hospital Care: D/C or Transfer Summary - Plan Summary Plan Summary: Continue current medication management. Follow up with shutdown planner and orthopedic team with regard to SNF rehabilitation program placement.
[2017-03-31] MEDS: OXYCODONE HCL IR 5 MG TABLET PO PRN ×3 (04:51→21:19)
[2017-03-31] MEDS: ASPIRIN 81 MG TABLET, ENT COATED PO SCH ×3 (06:03→18:42)
[2017-03-31] MEDS: HEPARIN SOD (PORCINE) 5,000 UNIT/ML 1 ML SYRINGE SUBCUT SCH ×3 (06:03→21:18)
[2017-03-31] MEDS: POTASSI CL 10 MEQ/D5-1/2NS 1L 1,000 ML IV PRN ×2 (08:14→18:45)
[2017-03-31] MEDS: CHOLECALCIFEROL (D3) 1,000 UNIT TABLET PO SCH (10:21)
[2017-03-31] MEDS: MAGNESIUM OXIDE 400 MG TABLET PO SCH (10:21)
[2017-03-31] MEDS: FOLIC ACID 1 MG TABLET PO SCH (10:21)
[2017-03-31] MEDS: HYDROXYUREA 500 MG CAPSULE PO SCH (10:21)
[2017-03-31] MEDS: LEVETIRACETAM 500 MG TABLET PO SCH ×2 (10:21→21:18)
--- NOTE | 2017-03-31 13:23 | PDOC PROGRESS REPORT ---
Subjective Progress Note for:: 03/31/17 Subjective:: Denied any fever or chills. No overt hip pain. No difficulty with breathing, chest pain, nausea, vomiting, or abdominal pain. Physical Exam Vital Signs: Temp Pulse Resp BP Pulse Ox 97.6 F 96 16 133/79 H 100 03/31/17 04:39 03/31/17 07:40 03/31/17 07:40 03/31/17 07:40 03/31/17 07:40 Intake & Output 03/30/17 03/31/17 04/01/17 06:59 06:59 06:59 Intake Total 2060 3357 Output Total 3324 7989 Balance -3965 -371 Physical Exam: General appearance: PRESENT: no acute distress, well-developed, well-nourished Eye exam: PRESENT: conjunctiva pink, EOMI, PERRLA. ABSENT: scleral icterus Respiratory exam: PRESENT: clear to auscultation ishan Cardiovascular exam: PRESENT: RRR. ABSENT: diastolic murmur, rubs, systolic murmur GI/Abdominal exam: PRESENT: normal bowel sounds, soft. ABSENT: distended, guarding, mass, organolmegaly, rebound, tenderness Neurological exam: PRESENT: alert, awake, other - baseline mental limitation Psychiatric exam: PRESENT: appropriate affect, normal mood. ABSENT: agitated Skin exam: PRESENT: dry, warm, other - ORIF site dressing okay. No drainage or discharge. Results Laboratory Results: 03/29/17 16:57 03/29/17 16:57 03/16/17 03/17/17 03/19/17 02:45 14:38 07:50 Creatine Kinase 117 62 50 L CK-MB (CK-2) 03/19/17 07:50 Creatine Kinase CK-MB (CK-2) 0.29 Impressions: Chest X-Ray 03/14/17 20:30 IMPRESSION: NO ACUTE RADIOGRAPHIC FINDING IN THE CHEST. Abdomen/Pelvis CT 03/18/17 00:00 IMPRESSION: 1. Cardiomegaly with minimal pleural effusions. 2. Hepatomegaly. The spleen is small and calcified. 3. There appears to be slight thickening of the bladder wall. Is there clinical evidence of cystitis? Lower Extremity MRI 03/22/17 00:00 IMPRESSION: 1. Comminuted intertrochanteric fractures of bilateral proximal femurs. Bilateral hip radiographs recommended. 2. New 5.2-cm likely hematoma of the right proximal thigh. 3. Extensive right upper leg edema persists. Skull X-Ray 03/22/17 00:00 IMPRESSION: No evidence of intracranial or intraorbital radiopaque foreign body based on lateral radiographs only. Limited. Fluoroscopy 03/24/17 00:00 IMPRESSION: IMAGE(S) OBTAINED DURING PROCEDURE. Hip X-Ray 03/24/17 00:00 IMPRESSION: IMAGE(S) OBTAINED DURING PROCEDURE. Assessment & Plan - Diagnosis (1) Bilateral intertrochanteric hip fractures Is this a current diagnosis for this admission?: Yes (2) Fall due to stumbling Qualifiers: Encounter type: subsequent encounter Qualified Code(s): W01.0XXD - Fall on same level from slipping, tripping and stumbling without subsequent striking against object, subsequent encounter Is this a current diagnosis for this admission?: Yes (3) History of CVA with residual deficit Is this a current diagnosis for this admission?: Yes (4) History of seizure disorder Is this a current diagnosis for this admission?: Yes (5) Sickle cell crisis Is this a current diagnosis for this admission?: Yes - Time Time Spent with patient: 25-34 minutes Medications reviewed and adjusted accordingly: Yes Anticipated discharge: Home with Homehealth Within: Other - Inpatient Certification Medical Necessity: Need Close Monitoring Due to Risk of Patient Decompensation, Need For Continuous Telemetry Monitoring, Risk of Complication if Not Cared For in Hospital Post Hospital Care: D/C Historiography Teacher Documentation - Plan Summary Plan Summary: See covering attending physician orders.
[2017-03-31 14:06] LABS: ABSOLUTE BASOPHILS # (AUTO) 0.1 10^3/uL (0.0-0.2); ABSOLUTE EOSINOPHILS # (AUTO) 0.2 10^3/uL (0.0-0.6); ABSOLUTE LYMPHOCYTES (AUTO) 1.9 10^3/uL (0.5-4.7); ABSOLUTE MONOCYTES (AUTO) 1.3 10^3/uL (0.1-1.4); ABSOLUTE NEUT (AUTO) 6.3 10^3/uL (1.7-8.2); BASOPHILS % (AUTO) 0.7 % (0-2); EOSINOPHILS % (AUTO) 2.3 % (0-6); HEMATOCRIT 25.2 % (37.9-51.0); HEMOGLOBIN 8.3 g/dL (13.5-17.0); HGB HCT DIFFERENCE -0.3; MEAN CORPUSCULAR HEMOGLOBIN 30.4 pg (27.0-33.4); MEAN CORPUSCULAR VOLUME 92 fl (80-97); MONOCYTES % (AUTO) 13.3 % (3-13); RED BLOOD COUNT 2.74 10^6/uL (4.35-5.55); RED CELL DISTRIBUTION WIDTH 14.8 % (11.5-14.0); SEGMENTED NEUTROPHILS % (AUTO) 64.7 % (42-78); WHITE BLOOD COUNT 9.8 10^3/uL (4.0-10.5)
[2017-03-31 14:20] LABS: ANION GAP 11 (5-19); BLOOD UREA NITROGEN 11 mg/dL (7-20); CARBON DIOXIDE 31 mmol/L (22-30); CHLORIDE 98 mmol/L (98-107); CREATININE RESULT 0.67 mg/dL (0.52-1.25); GLUCOSE 103 mg/dL (75-110); POTASSIUM 4.8 mmol/L (3.6-5.0); SODIUM 139.8 mmol/L (137-145)
[2017-03-31] MEDS: TAMSULOSIN HCL 0.4 MG CAP.SR.24H PO SCH (18:42)
[2017-04-01] MEDS: ASPIRIN 81 MG TABLET, ENT COATED PO SCH ×5 (01:13→23:33)
[2017-04-01] MEDS: POTASSI CL 10 MEQ/D5-1/2NS 1L 1,000 ML IV PRN (04:46)
[2017-04-01] MEDS: HEPARIN SOD (PORCINE) 5,000 UNIT/ML 1 ML SYRINGE SUBCUT SCH ×3 (06:24→21:11)
[2017-04-01] MEDS: OXYCODONE HCL IR 5 MG TABLET PO PRN ×3 (06:25→21:11)
--- NOTE | 2017-04-01 06:46 | PDOC PROGRESS REPORT ---
Subjective Progress Note for:: 04/01/17 Subjective:: Patient with no new complaints Physical Exam Vital Signs: Temp Pulse Resp BP Pulse Ox 36.4 C 81 16 113/68 100 04/01/17 03:40 04/01/17 03:40 04/01/17 03:40 04/01/17 03:40 04/01/17 03:40 Intake & Output 03/30/17 03/31/17 04/01/17 06:59 06:59 06:59 Intake Total 2060 3357 3600 Output Total 3328 4135 1950 Balance -1265 -778 1650 General appearance: PRESENT: no acute distress Extremities exam: PRESENT: other - Her lower extremity wounds clean dry and intact with the exception of the right middle incision which has scant serous drainage Results Laboratory Results: 03/31/17 13:53 03/31/17 13:53 03/31/17 03/31/17 13:53 13:53 WBC 9.8 RBC 2.74 L Hgb 8.3 L Hct 25.2 L MCV 92 MCH 30.4 MCHC 33.0 RDW 14.8 H Plt Count 446 Seg Neutrophils % 64.7 Lymphocytes % 19.0 Monocytes % 13.3 H Eosinophils % 2.3 Basophils % 0.7 Absolute Neutrophils 6.3 Absolute Lymphocytes 1.9 Absolute Monocytes 1.3 Absolute Eosinophils 0.2 Absolute Basophils 0.1 Sodium 139.8 Potassium 4.8 Chloride 98 Carbon Dioxide 31 H Anion Gap 11 BUN 11 Creatinine 0.67 Est GFR ( Amer) > 60 Est GFR (Non-Af Amer) > 60 Glucose 103 Calcium 9.0 03/16/17 03/17/17 03/19/17 02:45 14:38 07:50 Creatine Kinase 117 62 50 L CK-MB (CK-2) 03/19/17 07:50 Creatine Kinase CK-MB (CK-2) 0.29 Impressions: Chest X-Ray 03/14/17 20:30 IMPRESSION: NO ACUTE RADIOGRAPHIC FINDING IN THE CHEST. Abdomen/Pelvis CT 03/18/17 00:00 IMPRESSION: 1. Cardiomegaly with minimal pleural effusions. 2. Hepatomegaly. The spleen is small and calcified. 3. There appears to be slight thickening of the bladder wall. Is there clinical evidence of cystitis? Lower Extremity MRI 03/22/17 00:00 IMPRESSION: 1. Comminuted intertrochanteric fractures of bilateral proximal femurs. Bilateral hip radiographs recommended. 2. New 5.2-cm likely hematoma of the right proximal thigh. 3. Extensive right upper leg edema persists. Skull X-Ray 03/22/17 00:00 IMPRESSION: No evidence of intracranial or intraorbital radiopaque foreign body based on lateral radiographs only. Limited. Fluoroscopy 03/24/17 00:00 IMPRESSION: IMAGE(S) OBTAINED DURING PROCEDURE. Hip X-Ray 03/24/17 00:00 IMPRESSION: IMAGE(S) OBTAINED DURING PROCEDURE. Assessment & Plan - Diagnosis (1) Bilateral intertrochanteric hip fractures Is this a current diagnosis for this admission?: YesPlan: Making slow but steady progress with physical therapy in terms of regaining ambulation. Anticipate transfer to a custodial facility follow-up with Dr. Marcos in the [facility] for surgery in 2 weeks. - Time Time Spent with patient: 15-24 minutes Anticipated discharge: SNF Within: Other
[2017-04-01] MEDS: CHOLECALCIFEROL (D3) 1,000 UNIT TABLET PO SCH (09:16)
[2017-04-01] MEDS: FOLIC ACID 1 MG TABLET PO SCH (09:16)
[2017-04-01] MEDS: HYDROXYUREA 500 MG CAPSULE PO SCH (09:16)
[2017-04-01] MEDS: LEVETIRACETAM 500 MG TABLET PO SCH ×2 (09:16→21:11)
[2017-04-01] MEDS: MAGNESIUM OXIDE 400 MG TABLET PO SCH (09:16)
[2017-04-01] MEDS: TAMSULOSIN HCL 0.4 MG CAP.SR.24H PO SCH (17:12)
--- NOTE | 2017-04-01 19:59 | PDOC TRANSFER SUMMARY ---
General - Admit/Disc Date/PCP Admission Date/Primary Care Provider: 03/15/17 06:10 RUMA RUTH MD Discharge Date: 04/02/17 - Discharge Diagnosis (1) Bilateral intertrochanteric hip fractures Is this a current diagnosis for this admission?: Yes (2) Swelling of limb, right Is this a current diagnosis for this admission?: Yes (3) History of CVA with residual deficit Is this a current diagnosis for this admission?: Yes (4) History of seizure disorder Is this a current diagnosis for this admission?: Yes (5) Leukocytosis (leucocytosis) Is this a current diagnosis for this admission?: Yes (6) Sickle cell anemia Is this a current diagnosis for this admission?: Yes (7) Sickle cell crisis Is this a current diagnosis for this admission?: Yes (8) Anemia due to blood loss Is this a current diagnosis for this admission?: Yes - Additional Information Resuscitation Status: Full Code Discharge Diet: Regular Discharge Activity: Activity As Tolerated Home Medications: Aspirin [Aspirin 81 mg Chewable Tablet] 81 mg PO DAILY 03/15/17 Cholecalciferol (Vitamin D3) [Vitamin D3 1000 Unit Tablet] 1,000 unit PO DAILY 03/15/17 Deferasirox [Exjade] 1,500 mg PO DAILY 03/15/17 Folic Acid [Folvite 1 mg Tablet] 1 mg PO DAILY 03/15/17 Hydroxyurea [Hydrea 500 mg Capsule] 500 mg PO DAILY 03/15/17 Levetiracetam [Keppra] 1,000 mg PO Q12 03/15/17 Magnesium Oxide [Mag-Ox 400 mg Tablet] 800 mg PO DAILY 03/15/17 Tamsulosin HCl [Flomax 0.4 mg Cap.sr] 0.4 mg PO DAILY 03/15/17 Acetaminophen 500 mg PO Q8H #0 tablet 04/01/17 History of Present Illness Admission Date/PCP: 03/15/17 06:10 RUMA RUTH MD History of Present Illness: Patient is a 27-year-old male with history of sickle cell disease, he came to emergency room on 03/15/2017 because he cannot eat or drink in the last 3 days. He was recently admitted and discharged. At the time he complained of right knee pain, MRI of the right knee was done and it was normal. Patient taking is very challenging in this patient, on this admission he had swelling of the right thigh, there was associated leukocytosis, MRI of the thigh was requested because of suspicion for pyomyositis, the MRI suggested necrotizing fasciitis versus cellulitis. Patient had a fall couple of weeks ago before this admission he probably sustained fracture of the joint, patient is a very poor historian, he never complained of pain in his hips.Consistently complain of pain in his knee and MRI of the knee that was done was negative Hospital Course Hospital Course: Hospital course was prolonged, consultation was requested from surgery because of concern for necrotizing fasciitis, but this was ruled out by the surgeon and it was assumed that he has cellulitis he was treated with IV antibiotic empirically, zosyn and vancomycin for MRSA and gram-negative bacteria but despite 10 days of IV antibiotic there is no change in the swelling of the thigh because of this nonresponse to treatment repeat MRI was done and at this time he was found to have comminuted fracture of the neck of both femur , consultation was requested from orthopedic and he underwent open reduction and internal fixation of both hips . He also had blood transfusion in the hospital due to blood loss. Plan is to transfer to the alf for rehabilitation. Physical Exam Vital Signs: Temp Pulse Resp BP Pulse Ox 97.7 F 84 16 126/72 H 99 04/01/17 07:27 04/01/17 07:27 04/01/17 03:40 04/01/17 07:27 04/01/17 07:27 Intake & Output 03/31/17 04/01/17 04/02/17 06:59 06:59 06:59 Intake Total 3357 3600 1950 Output Total 4135 1950 600 Balance -778 1650 1350 General appearance: PRESENT: no acute distress Eye exam: PRESENT: PERRLA Respiratory exam: PRESENT: clear to auscultation ishan Cardiovascular exam: PRESENT: +S1, +S2 GI/Abdominal exam: PRESENT: soft Neurological exam: PRESENT: alert Results Laboratory Results: 03/31/17 13:53 03/31/17 13:53 03/16/17 03/17/17 03/19/17 02:45 14:38 07:50 Creatine Kinase 117 62 50 L CK-MB (CK-2) 03/19/17 07:50 Creatine Kinase CK-MB (CK-2) 0.29 Impressions: Chest X-Ray 03/14/17 20:30 IMPRESSION: NO ACUTE RADIOGRAPHIC FINDING IN THE CHEST. Abdomen/Pelvis CT 03/18/17 00:00 IMPRESSION: 1. Cardiomegaly with minimal pleural effusions. 2. Hepatomegaly. The spleen is small and calcified. 3. There appears to be slight thickening of the bladder wall. Is there clinical evidence of cystitis? Lower Extremity MRI 03/22/17 00:00 IMPRESSION: 1. Comminuted intertrochanteric fractures of bilateral proximal femurs. Bilateral hip radiographs recommended. 2. New 5.2-cm likely hematoma of the right proximal thigh. 3. Extensive right upper leg edema persists. Skull X-Ray 03/22/17 00:00 IMPRESSION: No evidence of intracranial or intraorbital radiopaque foreign body based on lateral radiographs only. Limited. Fluoroscopy 03/24/17 00:00 IMPRESSION: IMAGE(S) OBTAINED DURING PROCEDURE. Hip X-Ray 03/24/17 00:00
[2017-04-02] MEDS: POTASSI CL 10 MEQ/D5-1/2NS 1L 1,000 ML IV PRN (02:24)
[2017-04-02] MEDS: OXYCODONE HCL IR 5 MG TABLET PO PRN ×2 (04:06→14:20)
[2017-04-02] MEDS: HEPARIN SOD (PORCINE) 5,000 UNIT/ML 1 ML SYRINGE SUBCUT SCH (06:11)
[2017-04-02] MEDS: ASPIRIN 81 MG TABLET, ENT COATED PO SCH (06:11)
[2017-04-02] MEDS: CHOLECALCIFEROL (D3) 1,000 UNIT TABLET PO SCH (09:40)
[2017-04-02] MEDS: LEVETIRACETAM 500 MG TABLET PO SCH (09:40)
[2017-04-02] MEDS: MAGNESIUM OXIDE 400 MG TABLET PO SCH (09:40)
[2017-04-02] MEDS: FOLIC ACID 1 MG TABLET PO SCH (09:41)
[2017-04-02] MEDS: HYDROXYUREA 500 MG CAPSULE PO SCH (09:52)
[2017-04-02 11:41] VITALS: BP 125/76
== END 2017-04-02 14:54 | DRG 480 ==
LOC: ER 20:07 → UNDOADMIN 03-15 02:35 → EH 03-15 02:35 → 3N 03-15 06:00 → EH 03-15 06:10 → 5 03-19 04:33 → 4W 04-01 16:05
PROVIDERS: ADMIT Internal Medicine; ATTEND Internal Medicine
PROC: 0K9 Muscles, Drainage (ICD-10-PCS; 2017-03-16)
PROC: 0QS704Z Reposition Left Upper Femur with Internal Fixation Device, Open Approach (ICD-10-PCS; 2017-03-24)
PROC: 0QS604Z Reposition Right Upper Femur with Internal Fixation Device, Open Approach (ICD-10-PCS; principal; 2017-03-24 11:15)
PROC: 30233N1 Transfusion of Nonautologous Red Blood Cells into Peripheral Vein, Percutaneous Approach (ICD-10-PCS; 2017-03-26)
DX: S72.142A Displaced intertrochanteric fracture of left femur, initial encounter for closed fracture (principal); S72.141A Displaced intertrochanteric fracture of right femur, initial encounter for closed fracture; D57.00 Hb-SS disease with crisis, unspecified; D50.0 Iron deficiency anemia secondary to blood loss (chronic); W01.0XXA Fall on same level from slipping, tripping and stumbling without subsequent striking against object, initial encounter; Y93.9 Activity, unspecified; Y92.89 Other specified places as the place of occurrence of the external cause; Y99.9 Unspecified external cause status; K21.9 Gastro-esophageal reflux disease without esophagitis; F32.9 Major depressive disorder, single episode, unspecified; G40.909 Epilepsy, unspecified, not intractable, without status epilepticus; Z79.82 Long term (current) use of aspirin; Z79.899 Other long term (current) drug therapy; Z90.49 Acquired absence of other specified parts of digestive tract; Z87.891 Personal history of nicotine dependence
CPT/HCPCS: 01230; 36415; 36430; 51701; 70250; 71010; 73522; 74177; 80048; 80053; 80202; 81001; 82550; 82553; 82565; 82803; 82962; 83605; 85025; 85027; 85045; 85610; 85730; 86850; 86900; 86901; 86920; 87040; 87086; 93005; 93010; 93970; 93971; 96361; 96365; 96367; 96375; 99285; A9576; G8978-GP; G8979-GP; J0131; J0295; J0330; J0690; J0692; J1100; J1644; J1650; J1885; J2250; J2270; J2405; J2704; J3010; J3370; J3480; J3490; J7030; J7040; J7060; J7120; P9016

== ENCOUNTER 2017-08-11 10:52 | Outpatient (CLI) | payer MEDICARE, MEDICAID ==
[~2017-08-11 10:52] MED LIST: ACETAMINOPHEN 325 MG TABLET PO PRN; DIPHENHYDRAMINE HCL 25 MG CAPSULE PO PRN; FUROSEMIDE INJ/PF 20 MG/2 ML SDV IV PRN
[2017-08-11] MEDS ORDERED: NORMAL SALINE 250 ML IV PRN (11:50)
[2017-08-11 12:05] LABS: HEMATOCRIT 20.4 % (37.9-51.0); HGB HCT DIFFERENCE 1.5; MEAN CORPUSCULAR HEMOGLOBIN 34.8 pg (27.0-33.4); MEAN CORPUSCULAR HGB CONC 35.8 g/dL (32.0-36.0); MEAN CORPUSCULAR VOLUME 97 fl (80-97); RED CELL DISTRIBUTION WIDTH 26.1 % (11.5-14.0); WHITE BLOOD COUNT 8.6 10^3/uL (4.0-10.5)
[2017-08-11 12:48] LABS: HEMOGLOBIN 7.3 g/dL (13.5-17.0)
[2017-08-11 21:09] VITALS: BP 105/57
[2017-08-11 22:15] LABS: HEMATOCRIT 24.3 % (37.9-51.0); HGB HCT DIFFERENCE 2.7; MEAN CORPUSCULAR HEMOGLOBIN 34.3 pg (27.0-33.4); RED BLOOD COUNT 2.62 10^6/uL (4.35-5.55); RED CELL DISTRIBUTION WIDTH 23.4 % (11.5-14.0); WHITE BLOOD COUNT 9.1 10^3/uL (4.0-10.5)
[2017-08-11 22:51] LABS: MEAN CORPUSCULAR VOLUME 93 fl (80-97)
== END 2017-08-11 22:30 ==
LOC: II 10:52 → 5TH 10:56 → 2S 15:50 → II 22:30
PROVIDERS: ATTEND Internal Medicine Medical Oncology
PROC: 30233N1 Transfusion of Nonautologous Red Blood Cells into Peripheral Vein, Percutaneous Approach (ICD-10-PCS; principal; 2017-08-11)
DX: D57.1 Sickle-cell disease without crisis (principal)
CPT/HCPCS: 86900; 86901; 36415; 36430; 86850; 85027; 86920; 86902 ×4; P9016; A9270 ×2

== ENCOUNTER 2017-08-17 21:50 | Inpatient (IN) | payer MEDICARE, MEDICAID ==
--- NOTE | 2017-08-17 23:27 | RADIOLOGY REPORT (SQ) ---
EXAM DESCRIPTION: HIP RIGHT AP/LATERAL COMPLETED DATE/TIME: 08/17/2017 10:37 pm REASON FOR STUDY: FALL COMPARISON: 03/24/2017 NUMBER OF VIEWS: Two views. TECHNIQUE: AP pelvis and additional frog-leg view of the right hip. LIMITATIONS: None. FINDINGS: MINERALIZATION: Osteopenia. RIGHT HIP: Possible acute fracture of the right femoral neck with the femoral neck compression screw backed out 2.5 cm relative to the femoral intramedullary nail when compared with the 03/24/2017. LEFT HIP: No acute fracture or dislocation. Hardware appears intact. No worrisome bone lesions. PUBIS AND ISCHIUM: No fracture. PELVIS: No fracture. SACRUM: No fracture or dislocation. No worrisome bone lesions. LOWER LUMBAR SPINE: No fracture or dislocation. No worrisome bone lesions. No significant disc disea se. SOFT TISSUES: No findings. OTHER: No other significant finding. IMPRESSION: Possible acute fracture of the right femoral neck with the femoral neck compression scre w backed out 2.5 cm relative to the femoral intramedullary nail when compared with the 03/24/2017. TECHNICAL DOCUMENTATION: JOB ID: [id number]- All Rights Reserved
--- NOTE | 2017-08-17 23:57 | ER Document Report ---
ED General - General Chief Complaint: Hip Pain Stated Complaint: HIP PAIN Time Seen by Provider: 08/17/17 23:15 Notes: Patient is a 27-year-old male who presents with complaint of a fall while getting out of a van. He fell onto his right hip. Complains of pain on his right hip. He denies any has had. He denies any pains in the foot or ankle. He says pain is on his right hip. On March 23 he had bilateral hip surgeries by Dr. Marcos due to fractures in both hips. He had does have a history of sickle cell. He denies any current complications or symptoms from his sickle cell. TRAVEL OUTSIDE OF THE [place] IN LAST 30 DAYS: No - Related Data Allergies/Adverse Reactions: No Known Drug Allergies Allergy (Unknown, Verified 04/02/15 13:14) mayonaise Allergy (Uncoded 02/17/14 09:13) Past Medical History - Social History Smoking Status: Never Smoker Frequency of alcohol use: None Drug Abuse: None Family History: Reviewed & Not Pertinent, Other Patient has suicidal ideation: No Patient has homicidal ideation: No - Past Medical History Cardiac Medical History: Reports: Hx Heart Murmur Denies: Hx Congestive Heart Failure, Hx Heart Attack, Hx Hypertension Pulmonary Medical History: Reports: Hx Pneumonia Denies: Hx Asthma, Hx Bronchitis, Hx COPD, Hx Tuberculosis Neurological Medical History: Reports: Hx Cerebrovascular Accident - age 6, Hx Seizures Renal/ Medical History: Denies: Hx Peritoneal Dialysis Malignancy Medical History: GI Medical History: Reports: Hx Gastroesophageal Reflux Disease. Denies: Hx Pancreatitis, Hx Ulcer Musculoskeltal Medical History: Denies Hx Arthritis, Denies Hx Multiple Sclerosis Psychiatric Medical History: Reports: Hx Anxiety, Hx Depression Denies: Hx Bipolar Disorder, Hx Schizophrenia Traumatic Medical History: Infectious Medical History: Past Surgical History: Reports: Hx Cholecystectomy, Hx Oral Surgery - reconstruction, Other - Patient tracheostomy and PEG tube placement [facility] 3 years. Denies: Hx Appendectomy, Hx Bowel Surgery, Hx Tonsillectomy - Immunizations Immunizations up to date: Yes Hx Diphtheria, Pertussis, Tetanus Vaccination: Yes Hx Pneumococcal Vaccination: 08/05/12 Review of Systems - Review of Systems Notes: My Normal Review Basic REVIEW OF SYSTEMS: CONSTITUTIONAL : Denies fever, chills, or sweats. Denies recent illness. RESPIRATORY: Denies cough, cold, or chest congestion. Denies shortness of breath, difficulty breathing, or wheezing. GASTROINTESTINAL: Denies abdominal pain. Denies nausea, vomiting, or diarrhea. Denies constipation. Last BM: MUSCULOSKELETAL: Right hip pain. SKIN: Denies rash or skin lesions. HEMATOLOGIC : History of sickle cell NEUROLOGICAL: Denies altered mental status or loss of consciousness. Denies headache. Denies weakness or paralysis or loss of use of either side. Denies problems with gait or speech. Denies sensory or motor loss. ALL OTHER SYSTEMS REVIEWED AND NEGATIVE. Physical Exam - Vital signs Vitals: Temp Pulse Resp BP Pulse Ox 98.2 F 88 18 135/71 H 96 08/17/17 21:55 08/17/17 21:55 08/17/17 21:55 08/17/17 21:55 08/17/17 21:55 - Notes Notes: General Appearance: Well nourished, alert, cooperative, no acute distress, mild to moderate obvious discomfort. Vitals: reviewed, See vital signs table. Head: no swelling or tenderness to the head Eyes: PERRL, EOMI, Conjuctiva clear Mouth: No decreasd moisture Neck: Supple, no neck tenderness Lungs: No wheezing, No rales, No rhonci, No accessory muscle use, good air exchange bilaterally. Heart: Normal rate, Regular rythm, No murmur, no rub Abdomen: Normal BS, soft, No rigidity, No abdominal tenderness, No guarding, no rebound, no abdominal masses, no organomegaly Extremities: strength 5/5 in all extremities, good pulses in all extremities, I am able to place the patient's right hip through some flexion but he does have obvious pain when doing so. Palpation over the right hip. Pelvis is stable. Left hip is nontender. Skin: warm, dry, appropriate color, no rash Neuro: speech clear, oriented x 3, normal affect, responds appropriately to questions. Course - Re-evaluation Re-evalutation: 08/17/17 23:[address] Mcmanus who is covering for Dr. Marcos. He says it is unlikely that there is an actual fracture but there will to conservative management and have him and admitted and they will evaluate him in the morning. Requested admit to medicine due to his history of sickle cell. I will obtain baseline labs. After that I will call his primary care doctor, Dr. Ruth, for admission. I discussed the plan with the family and they are agreeable to it. 08/18/17 02:13 Patient's lab results did not show any concerning findings. His hemoglobin is 9.8 which is above his baseline. In reviewing his previous labs baseline is usually between 7 and 8-1/2. This most likely is because he did recently receive receive a blood transfusion. He has no sickle cell type pain. He does have just very slight leukocytosis but no signs of infection. I did speak with Dr. Ruth, patient's primary care physician, who agrees to admit him. - Vital Signs Vital signs: Temp Pulse Resp BP Pulse Ox 98.2 F 88 18 135/71 H 96 08/17/17 21:55 08/17/17 21:55 08/17/17 21:55 08/17/17 21:55 08/17/17 21:55 - Laboratory Result Diagrams: 08/18/17 01:09 08/17/17 23:59 Laboratory results interpreted by me: 08/17/17 08/18/17 23:59 01:09 WBC 11.5 H RBC 2.88 L Hgb 9.8 L Hct 28.3 L MCV 98 H D MCH 34.0 H RDW 23.4 H Seg Neuts % (Manual) 83 H Band Neutrophils % 1 L Lymphocytes % (Manual) 8 L Abs Neuts (Manual) 9.7 H Retic Count (auto) 3.25 H Glucose 146 H Discharge - Discharge Clinical Impression: Femoral neck fracture Qualifiers: Encounter type: initial encounter Fracture type: closed Laterality: right Qualified Code(s): S72.001A - Fracture of unspecified part of neck of right femur, initial encounter for closed fracture Condition: Stable Disposition: ADMITTED OBSERVATION Admitting Provider: Sar[facility] Unit Admitted: Medical Floor Referrals: RUMA RUTH MD [Primary Care Provider] - Follow up as needed
[2017-08-18 00:27] LABS: ANION GAP 13 (5-19); BLOOD UREA NITROGEN 13 mg/dL (7-20); CALCIUM 9.4 mg/dL (8.4-10.2); CARBON DIOXIDE 27 mmol/L (22-30); CHLORIDE 104 mmol/L (98-107); CREATININE RESULT 0.69 mg/dL (0.52-1.25); GLUCOSE 146 mg/dL (75-110); POTASSIUM 4.9 mmol/L (3.6-5.0); SODIUM 143.5 mmol/L (137-145)
[2017-08-18 01:36] LABS: HEMATOCRIT 28.3 % (37.9-51.0); HEMOGLOBIN 9.8 g/dL (13.5-17.0); HGB HCT DIFFERENCE 1.1; MEAN CORPUSCULAR HGB CONC 34.6 g/dL (32.0-36.0); RED BLOOD COUNT 2.88 10^6/uL (4.35-5.55); RED CELL DISTRIBUTION WIDTH 23.4 % (11.5-14.0); WHITE BLOOD COUNT 11.5 10^3/uL (4.0-10.5)
[2017-08-18 01:37] LABS: MEAN CORPUSCULAR VOLUME 98 fl (80-97)
[2017-08-18 01:56] LABS: BAND NEUTROPHILS % (MANUAL) 1 % (3-5); BASOPHILS % (MANUAL) 0 % (0-2); EOSINOPHILS % (MANUAL) 0 % (0-6); LYMPHOCYTES % (MANUAL) 8 % (13-45); NUCLEATED RED BLOOD CELLS 1 /100 WBC (0); TOTAL CELLS COUNTED 100
[2017-08-18 01:58] LABS: ANISOCYTOSIS 3+; BURR CELLS SLIGHT; OVALOCYTES SLIGHT; POIKILOCYTOSIS 1+; POLYCHROMASIA SLIGHT; TOXIC GRANULATION SLIGHT
[2017-08-18 01:59] LABS: SCHISTOCYTES SLIGHT; TARGET CELLS SLIGHT
[2017-08-18] MEDS ORDERED: HYDROMORPHONE HCL INJ/PF 2 MG/ML AMPULE IV ONE (02:12)
[2017-08-18] MEDS ORDERED: NORMAL SALINE 1000 ML 1,000 ML IV PRN (06:31)
[2017-08-18] MEDS: OXYCODONE HCL IR 5 MG TABLET PO PRN ×3 (15:25→23:40)
--- NOTE | 2017-08-18 16:39 | PDOC CONSULTATION ---
Consultation Consult Date: 08/18/17 Consult reason:: Right hip pain History of Present Illness Admission Date/PCP: 08/18/17 04:35 RUMA RUTH MD History of Present Illness: EMIL BARNES is a 27 year old male with a past medical history of sickle cell disease and developmental delay who initially presented with hip pain and was diagnosed with bilateral intratrochanteric femur fractures. The patient underwent an open reduction internal fixation of both fractures and has subsequently had a relatively slow recovery. Apparently he fell yesterday and was brought into the emergency room. X-rays were interpreted as consistent with a femoral neck fracture and hardware failure. Orthopedics is consulted for evaluation. Past Medical History Cardiac Medical History: Reports: Heart Murmur Denies: Congestive Heart Failure, Myocardial Infarction, Hypertension Pulmonary Medical History: Reports: Pneumonia Denies: Asthma, Bronchitis, Chronic Obstructive Pulmonary Disease (COPD), Tuberculosis Neurological Medical History: Reports: Seizures Malignancy Medical History: GI Medical History: Reports: Gastroesophageal Reflux Disease Musculoskeltal Medical History: Denies: Arthritis Psychiatric Medical History: Reports: Depression Denies: Bipolar Disorder Hematology: Reports: Anemia, Sickle Cell Disease, Bleeding Tendencies Denies: Hemophilia Infectious Medical History: Past Surgical History Past Surgical History: Reports: Cholecystectomy, Orthopedic Surgery - Patient underwent open reduction internal fixation of bilateral proximal fe, Other - Patient tracheostomy and PEG tube placement [facility] 3 years Denies: Appendectomy, Tonsillectomy Social History Information Source: Patient, DrSherice [place], [facility] Records Smoking Status: Never Smoker Frequency of Alcohol Use: None Hx Recreational Drug Use: No Drugs: None Hx Prescription Drug Abuse: No - Advance Directive Resuscitation Status: Full Code Family History Family History: Reviewed & Not Pertinent, Other Parental Family History Reviewed: No Children Family History Reviewed: No Sibling(s) Family History Reviewed.: No Medication/Allergy Home Medications: Hydroxyurea [Hydrea 500 Mg Capsule] 500 mg PO DAILY 08/18/17 Levetiracetam [Keppra 500 mg Tablet] 500 mg PO Q6 08/18/17 Tamsulosin HCl [Flomax 0.4 mg Cap.sr] 0.4 mg PO DAILY 08/18/17 Allergies/Adverse Reactions: No Known Drug Allergies Allergy (Unknown, Verified 04/02/15 13:14) mayonaise Allergy (Uncoded 02/17/14 09:13) Review of Systems All systems: as per PMH Physical Exam Vital Signs: Temp Pulse Resp BP Pulse Ox 36.7 C 97 17 119/62 95 08/18/17 08:08 08/18/17 07:44 08/18/17 07:44 08/18/17 07:44 08/18/17 07:44 Intake & Output 08/17/17 08/18/17 08/19/17 06:59 06:59 06:59 Intake Total 600 Output Total 975 Balance -975 600 Physical Exam: The patient's middle-age black male lying in hospital bed in minimal distress. General appearance: PRESENT: no acute distress Head exam: PRESENT: normocephalic Respiratory exam: PRESENT: unlabored Cardiovascular exam: PRESENT: RRR Pulses: PRESENT: +1 pedal pulses bilateral GI/Abdominal exam: PRESENT: soft Rectal exam: PRESENT: deferred Extremities exam: PRESENT: other - Bilateral hip incisions are well-healed. There is a prominent hardware component in the region of the right greater trochanter which is tender to palpation. The skin overlying is intact without erythema or induration. Hip range of motion is without significant discomfort. Neurological exam: PRESENT: alert, awake, oriented to person, oriented to place , oriented to time, oriented to situation. ABSENT: motor sensory deficit Skin exam: PRESENT: dry, intact, warm. ABSENT: cyanosis, rash Results Impressions: Hip/Pelvis X-Ray 08/17/17 21:59 IMPRESSION: Possible acute fracture of the right femoral neck with the femoral neck compression screw backed out 2.5 cm relative to the femoral intramedullary nail when compared with the 03/24/2017. Status: Imported from PACS Assessment & Plan - Diagnosis (1) Bilateral intertrochanteric hip fractures Is this a current diagnosis for this admission?: Yes Plan: 27-year-old male status post internal fixation of bilateral proximal femur fractures. Currently x-rays demonstrate some collapse of the proximal femur and prominence of hardware. In the presence of this hardware it is not possible to have a femoral neck fracture. The collapse of the hardware is a design feature of the implant to allow increasing opposition of the fracture fragments proximally. Unfortunately for this patient he is so thin in terms of his body habitus that that hardware has now become prominent and is causing some discomfort. At some point in the distant future consideration could be given to hardware removal but at this point I do not think there is adequate fracture healing to allow us to consider doing now. My recommendation is that we treat this with an anti-inflammatory medication and physical therapy for mobilization and weightbearing as tolerated basis - Time Time Spent: 30 to 50 Minutes Anticipated discharge: Home with Homehealth Within: Other
[2017-08-19] MEDS: OXYCODONE HCL IR 5 MG TABLET PO PRN (06:49)
--- NOTE | 2017-08-19 06:56 | PDOC PROGRESS REPORT ---
Subjective Progress Note for:: 08/19/17 Subjective:: 27-year-old -[place] Citizen male who was sustained right femoral neck fracture and hardware failure based on x-ray interpretation. Patient is lying recumbent in hospital bed this morning. Patient was informed that he will continue to work with physical therapy and was question about his weight. Patient states that he does not feel that he has lost weight since previous encounters with Dr. Marcos. Physical Exam Vital Signs: Temp Pulse Resp BP Pulse Ox 36.8 C 80 16 130/80 H 99 08/18/17 23:38 08/18/17 23:38 08/18/17 23:38 08/18/17 23:38 08/18/17 23:38 Intake & Output 08/17/17 08/18/17 08/19/17 06:59 06:59 06:59 Intake Total 1635 Output Total 975 1475 Balance -975 160 Weight 53.7 kg General appearance: PRESENT: no acute distress, well-developed, well-nourished Head exam: PRESENT: atraumatic, normocephalic Pulses: PRESENT: normal dorsalis pedis pul, +2 pedal pulses bilateral Vascular exam: PRESENT: normal capillary refill Additional comments: Patient is lying recumbent in hospital bed with both lower extremities fully extended. He is tender to palpation of bilateral hips. There is brisk capillary refill to bilateral lower extremities his sensory motor functions are intact and his distal neurovascular exam is intact. Musculoskeletal exam: PRESENT: ambulatory Additional comments: Patient has not been ambulatory since he has been admitted to the hospital. He was informed that he will work with physical therapy today to work towards weightbearing ambulation. Neurological exam: PRESENT: alert, awake, oriented to person, oriented to place , oriented to time, oriented to situation, CN II-XII grossly intact. ABSENT: motor sensory deficit Additional comments: Patient has developmental delay although he does appear oriented to person place and time. Psychiatric exam: PRESENT: appropriate affect, normal mood. ABSENT: homicidal ideation, suicidal ideation Skin exam: PRESENT: dry, intact, warm. ABSENT: cyanosis, rash Results Impressions: Hip/Pelvis X-Ray 08/17/17 21:59 IMPRESSION: Possible acute fracture of the right femoral neck with the femoral neck compression screw backed out 2.5 cm relative to the femoral intramedullary nail when compared with the 03/24/2017. Assessment & Plan - Diagnosis (1) Femoral neck fracture Qualifiers: Encounter type: initial encounter Fracture type: closed Laterality: right Qualified Code(s): S72.001A - Fracture of unspecified part of neck of right femur, initial encounter for closed fracture Is this a current diagnosis for this admission?: Yes Plan: 27-year-old -[place] Citizen female who, based on radiology reading, has sustained bilateral femoral neck fractures and hardware failure. Patient is apparently comfortable currently in hospital. He will work with physical therapy to work towards weightbearing ambulation and when he has accomplished this, he will be discharged from hospital.
--- NOTE | 2017-08-19 21:07 | PDOC H&P ---
History of Present Illness Admission Date/PCP: 08/18/17 04:35 RUMA RUHT MD History of Present Illness: Patient 27-year-old male with sickle cell disease status post bilateral open reduction internal fixation of both hips he fell and he presented emergency room for evaluation of pain in the right hip area x-ray was done it was felt that there was fracture of the right femur , and admission was advised. Consultation was obtained from orthopedic, he was seen by Dr. Marcos, the orthopedic surgeon is osteopenia that the fracture of the femur is not possible with the presence of the hardware the patient presently have, the collapse of the anterior C design feature of the implant and that physical therapy and pain control with NSAIDs is recommended. Past Medical History Cardiac Medical History: Reports: Heart Murmur Pulmonary Medical History: Reports: Pneumonia Neurological Medical History: Reports: Seizures Malignancy Medical History: GI Medical History: Reports: Gastroesophageal Reflux Disease Musculoskeltal Medical History: Denies: Arthritis Psychiatric Medical History: Reports: Depression Hematology: Reports: Anemia, Sickle Cell Disease, Bleeding Tendencies Infectious Medical History: Past Surgical History Past Surgical History: Reports: Cholecystectomy, Orthopedic Surgery - Patient underwent open reduction internal fixation of bilateral proximal fe, Other - Patient tracheostomy and PEG tube placement [facility] 3 years Social History Smoking Status: Never Smoker Frequency of Alcohol Use: None Hx Recreational Drug Use: No Drugs: None Hx Prescription Drug Abuse: No - Advance Directive Resuscitation Status: Full Code Family History Family History: Reviewed & Not Pertinent, Other Parental Family History Reviewed: Yes Children Family History Reviewed: Yes Sibling(s) Family History Reviewed.: Yes Medication/Allergy Home Medications: Hydroxyurea [Hydrea 500 Mg Capsule] 500 mg PO DAILY 08/18/17 Levetiracetam [Keppra 500 mg Tablet] 500 mg PO Q6 08/18/17 Tamsulosin HCl [Flomax 0.4 mg Cap.sr] 0.4 mg PO DAILY 08/18/17 Allergies/Adverse Reactions: No Known Drug Allergies Allergy (Unknown, Verified 04/02/15 13:14) mayonaise Allergy (Uncoded 02/17/14 09:13) Review of Systems Constitutional: ABSENT: chills, fever(s), headache(s), weight gain, weight loss Eyes: ABSENT: visual disturbances Ears: ABSENT: hearing changes Cardiovascular: ABSENT: chest pain, dyspnea on exertion, edema, orthropnea, palpitations Respiratory: ABSENT: cough, hemoptysis Gastrointestinal: ABSENT: abdominal pain, constipation, diarrhea, hematemesis, hematochezia, nausea, vomiting Genitourinary: ABSENT: dysuria, hematuria Musculoskeletal: ABSENT: joint swelling Integumentary: ABSENT: rash, wounds Neurological: ABSENT: abnormal gait, abnormal speech, confusion, dizziness, focal weakness, syncope Psychiatric: ABSENT: anxiety, depression, homidical ideation, suicidal ideation Endocrine: ABSENT: cold intolerance, heat intolerance, menstrual abnormalities, polydipsia, polyuria Hematologic/Lymphatic: ABSENT: easy bleeding, easy bruising, lymphadenopathy Physical Exam Vital Signs: Temp Pulse Resp BP Pulse Ox 98.7 F 109 H 17 115/63 99 08/19/17 15:55 08/19/17 15:55 08/19/17 15:55 08/19/17 15:55 08/19/17 15:55 Intake & Output 08/18/17 08/19/17 08/20/17 06:59 06:59 06:59 Intake Total 1635 960 Output Total 975 1475 1100 Balance -975 160 -140 Weight 53.7 kg General appearance: PRESENT: no acute distress Head exam: PRESENT: atraumatic, normocephalic Eye exam: PRESENT: PERRLA Ear exam: PRESENT: normal external ear exam Neck exam: PRESENT: full ROM Respiratory exam: PRESENT: clear to auscultation ishan Cardiovascular exam: PRESENT: RRR, +S1, +S2 Vascular exam: PRESENT: normal capillary refill GI/Abdominal exam: PRESENT: normal bowel sounds, soft Rectal exam: PRESENT: deferred Neurological exam: PRESENT: alert Psychiatric exam: PRESENT: appropriate affect, normal mood Skin exam: PRESENT: dry, intact, warm. ABSENT: cyanosis, rash Results Impressions: Hip/Pelvis X-Ray 08/17/17 21:59 IMPRESSION: Possible acute fracture of the right femoral neck with the femoral neck compression screw backed out 2.5 cm relative to the femoral intramedullary nail when compared with the 03/24/2017. Assessment & Plan - Diagnosis (1) Pain, joint, hip, right Is this a current diagnosis for this admission?: Yes Plan: Patient was seen by orthopedic, there is no indication for orthopedic intervention physical therapy pain controlled with NSAID recommended (2) Sickle cell anemia without crisis Is this a current diagnosis for this admission?: Yes
--- NOTE | 2017-08-19 21:15 | PDOC TRANSFER SUMMARY ---
General - Admit/Disc Date/PCP Admission Date/Primary Care Provider: 08/18/17 04:35 RUMA RUTH MD Discharge Date: 08/19/17 - Discharge Diagnosis (1) Pain, joint, hip, right Is this a current diagnosis for this admission?: Yes (2) Sickle cell anemia without crisis Is this a current diagnosis for this admission?: Yes - Additional Information Resuscitation Status: Full Code Home Medications: Hydroxyurea [Hydrea 500 mg Capsule] 500 mg PO DAILY 08/18/17 Levetiracetam [Keppra 500 mg Tablet] 500 mg PO Q6 08/18/17 Tamsulosin HCl [Flomax 0.4 mg Cap.sr] 0.4 mg PO DAILY 08/18/17 Diclofenac Sodium/Misoprostol [Arthrotec 50 Ec Tablet] 1 each PO BID #60 tablet. 08/19/17 Folic Acid 1 mg PO DAILY #90 tablet 08/19/17 History of Present Illness Admission Date/PCP: 08/18/17 04:35 RUMA RUTH MD History of Present Illness: Patient 27-year-old male with sickle cell disease status post bilateral open reduction internal fixation of both hips he fell and he presented emergency room for evaluation of pain in the right hip area x-ray was done it was felt that there was fracture of the right femur , and admission was advised. Consultation was obtained from orthopedic, he was seen by Dr. Marcos, the orthopedic surgeon is osteopenia that the fracture of the femur is not possible with the presence of the hardware the patient presently have, the collapse of the anterior C design feature of the implant and that physical therapy and pain control with NSAIDs is recommended. Hospital Course Hospital Course: Patient was admitted because it was felt that he had a fracture of the right femoral but there was no fracture there was a collapse of the hardware which is a design of the implant., He was seen by orthopedic, physical therapy and treatment with NSAID recommended Physical Exam Vital Signs: Temp Pulse Resp BP Pulse Ox 98.7 F 109 H 17 115/63 99 08/19/17 15:55 08/19/17 15:55 08/19/17 15:55 08/19/17 15:55 08/19/17 15:55 Intake & Output 08/18/17 08/19/17 08/20/17 06:59 06:59 06:59 Intake Total 1635 960 Output Total 975 1475 1100 Balance -975 160 -140 Weight 53.7 kg General appearance: PRESENT: no acute distress Eye exam: PRESENT: PERRLA Respiratory exam: PRESENT: clear to auscultation ishan Cardiovascular exam: PRESENT: +S1, +S2 GI/Abdominal exam: PRESENT: soft Musculoskeletal exam: PRESENT: ambulatory, tenderness - At the right hip area Neurological exam: PRESENT: alert, CN II-XII grossly intact Results Impressions: Hip/Pelvis X-Ray 08/17/17 21:59 IMPRESSION: Possible acute fracture of the right femoral neck with the femoral neck compression screw backed out 2.5 cm relative to the femoral intramedullary nail when compared with the 03/24/2017.
[2017-08-20 01:22] VITALS: BP 117/72
[2017-08-20] MEDS ORDERED: INFLUENZA ADLT QUAD (36MOS+) 2017-18 VAC 0.5 ML SYR IM PRN (10:56)
== END 2017-08-20 12:23 | DRG 556 ==
LOC: ER 21:50 → EH 08-18 02:16 → 5 08-18 04:05 → OBSVTOIN 08-18 04:35
PROVIDERS: ADMIT Internal Medicine; ATTEND Internal Medicine
DX: M25.551 Pain in right hip (principal); D57.1 Sickle-cell disease without crisis; K21.9 Gastro-esophageal reflux disease without esophagitis; F41.9 Anxiety disorder, unspecified; F32.9 Major depressive disorder, single episode, unspecified; W17.89XA Other fall from one level to another, initial encounter; Z86.73 Personal history of transient ischemic attack (TIA), and cerebral infarction without residual deficits; Z87.81 Personal history of (healed) traumatic fracture; Z90.49 Acquired absence of other specified parts of digestive tract; Z91.018 Allergy to other foods; Y93.9 Activity, unspecified
CPT/HCPCS: 36415; 80048; 85025; 85045; 96374; 99284; G8978-GP; G8979-GP; J1170; J7030

== ENCOUNTER 2017-11-29 08:54 | Inpatient (IN) | payer MEDICARE, MEDICAID ==
[~2017-11-29 08:54] MED LIST changes: -ACETAMINOPHEN 325 MG TABLET PO PRN; -DIPHENHYDRAMINE HCL 25 MG CAPSULE PO PRN; -FUROSEMIDE INJ/PF 20 MG/2 ML SDV IV PRN; +IBUPROFEN 800 MG in NORMAL SALINE 250 ML IV ONE; +IBUPROFEN 800 MG/NS 250 ML IV PRN; +LACTATED RINGERS 1000 ML IV PRN; +LANSOPRAZOLE 15 MG TAB.RAP.DR PO PRN; +LANSOPRAZOLE 30 MG TAB.RAP.DR PO SCH; +LIDOCAINE 0.5% INJ-PF (5 MG/ML) 50 ML SDV SUBCUT PRN; +MORPHINE SULFATE 10 MG/ML INJ IV PRN; +ONDANSETRON HCL INJ/PF 4 MG/2 ML SDV IV PRN; +OXYCODONE HCL SR 10 MG TABLET PO ONE; +OXYCODONE HCL SR 10 MG TABLET PO PRN; +TRANEXAMIC ACID INJ/PF 1,000 MG/10 ML SDV IV ONE; +VANCOMYCIN HCL 1,000 MG in DEXTROSE 5%-WATER 250 ML IV PRN
--- NOTE | 2017-11-29 09:02 | Physician Advisory Note ---
Physician Advisor ProgressNote .: Pursuant to the plan for Robby Hartley, I have reviewed the medical record for this patient. Physician Advisor Statement: Please consider documenting, if you agree: 1. "Acute blood loss anemia due to " (Hgb was 8.3 on 11/03/17, 5.3 today) Vs. "Chronic blood loss anemia due to " 2. "Acute hypernatremia, suspect due to " (intravascular volume depletion? Rx side effect? ...) - & note what done/doing about it. Status: sounds appropriate for Obs status for now, as planned per H&P. - If an issue continues with 1 of the above requiring continued hospitalization beyond 11/30, or surgery has to be converted to GARRET, or acute complications occur joo-operatively such as acute systolic CHF, then he may qualify for change to Inpatient status. CK
[2017-11-29] MEDS ORDERED: THROMBIN (BOVINE) 5000 UNIT EPITAXIS KIT ONE (09:31)
[2017-11-29] MEDS ORDERED: BUPIVACAINE INJ/PF LIPOSOME/PF 266 MG/20 ML SDV ONE (09:31)
[2017-11-29] MEDS ORDERED: THROMBIN (BOVINE) TOPICAL 20000 UNIT VIAL ONE (09:31)
[2017-11-29 10:08] LABS: MEAN CORPUSCULAR HEMOGLOBIN 30.7 pg (27.0-33.4); MEAN CORPUSCULAR HGB CONC 32.8 g/dL (32.0-36.0); MEAN CORPUSCULAR VOLUME 94 fl (80-97); PLATELET COUNT 470 10^3/uL (150-450); RED BLOOD COUNT 1.71 10^6/uL (4.35-5.55); RED CELL DISTRIBUTION WIDTH 17.8 % (11.5-14.0); WHITE BLOOD COUNT 13.3 10^3/uL (4.0-10.5)
[2017-11-29 10:10] LABS: HEMOGLOBIN 5.3 g/dL (13.5-17.0)
[2017-11-29 10:18] LABS: ANION GAP 10 (5-19); BLOOD UREA NITROGEN 17 mg/dL (7-20); CALCIUM 9.5 mg/dL (8.4-10.2); CARBON DIOXIDE 26 mmol/L (22-30); CHLORIDE 113 mmol/L (98-107); GLUCOSE 96 mg/dL (75-110); MAGNESIUM 1.7 mg/dL (1.6-2.3); PHOSPHORUS 4.1 mg/dL (2.5-4.5); POTASSIUM 4.6 mmol/L (3.6-5.0)
[2017-11-29] MEDS ORDERED: (PENDING PHARMACY ID) (Acetaminophen [Tylenol Extra Strength] 500 MG) PO PRN (12:43)
[2017-11-29] MEDS ORDERED: ACETAMINOPHEN 325 MG TABLET PO PRN (12:46)
--- NOTE | 2017-11-29 12:53 | EKG REPORT ---
SEVERITY:- ABNORMAL ECG - SINUS RHYTHM CONSIDER LEFT VENTRICULAR HYPERTROPHY ST ELEVATION SUGGESTS NORMAL VARIANT. : Confirmed by: Peter Cruz MD 29-Nov-2017 12:53:03
[2017-11-29] MEDS: MISOPROSTOL 0.2 MG TABLET PO SCH (17:58)
[2017-11-29] MEDS: MEGESTROL ACETATE 20 MG TABLET PO SCH (17:58)
[2017-11-29] MEDS: DICLOFENAC SODIUM 50 MG TABLET.DR PO SCH (17:59)
[2017-11-29] MEDS: LEVETIRACETAM 500 MG TABLET PO SCH (21:19)
[2017-11-30] MEDS: LANSOPRAZOLE 30 MG TAB.RAP.DR PO SCH (05:17)
--- NOTE | 2017-11-30 06:43 | PDOC PROGRESS REPORT ---
Subjective Progress Note for:: 11/30/17 Reason For Visit: L HIP HARDWARE FAILURE Patient was scheduled for a left conversion hip arthroplasty yesterday but this was canceled because of anemia. Patient received 3 units of packed red blood cells yesterday. Postoperative hematocrit is pending this morning. Physical Exam Vital Signs: Temp Pulse Resp BP Pulse Ox 37.4 C 86 16 104/66 100 11/29/17 23:12 11/29/17 23:12 11/29/17 23:12 11/29/17 23:12 11/29/17 23:12 Intake & Output 11/28/17 11/29/17 11/30/17 06:59 06:59 06:59 Intake Total 2000 Output Total 350 Balance 1650 General appearance: PRESENT: no acute distress Head exam: PRESENT: normocephalic Cardiovascular exam: PRESENT: RRR Pulses: PRESENT: +1 pedal pulses bilateral Vascular exam: PRESENT: normal capillary refill GI/Abdominal exam: PRESENT: soft Rectal exam: PRESENT: deferred Extremities exam: PRESENT: other - Reduced left lower extremity passive range of motion secondary to pain Neurological exam: PRESENT: alert, awake Psychiatric exam: PRESENT: flat affect, normal mood. ABSENT: homicidal ideation , suicidal ideation Skin exam: PRESENT: dry, intact, warm. ABSENT: cyanosis, rash Results Laboratory Results: 11/29/17 09:45 11/29/17 09:45 11/29/17 11/29/17 11/29/17 09:45 09:45 09:45 WBC 13.3 H RBC 1.71 L Hgb 5.3 L Hct 16.0 L MCV 94 MCH 30.7 MCHC 32.8 RDW 17.8 H Plt Count 470 H Sodium 149.0 H Potassium 4.6 Chloride 113 H Carbon Dioxide 26 Anion Gap 10 BUN 17 Creatinine 1.07 Est GFR ( Amer) > 60 Est GFR (Non-Af Amer) > 60 Glucose 96 Calcium 9.5 Phosphorus 4.1 Magnesium 1.7 Blood Type A POSITIVE Antibody Screen NEGATIVE Status: Imported from PACS Assessment & Plan - Diagnosis (1) Hardware failure left hip Is this a current diagnosis for this admission?: Yes Plan: We will plan for conversion arthroplasty tomorrow pending correction of laboratory abnormalities. (2) Anemia Is this a current diagnosis for this admission?: Yes Plan: Patient received 3 units of packed red blood cells yesterday. Post transfusion hematocrit is pending this morning. - Time Time Spent with patient: 15-24 minutes Anticipated discharge: SNF Within: Other
[2017-11-30 07:06] LABS: ABSOLUTE BASOPHILS # (AUTO) 0.1 10^3/uL (0.0-0.2); ABSOLUTE EOSINOPHILS # (AUTO) 0.1 10^3/uL (0.0-0.6); ABSOLUTE MONOCYTES (AUTO) 0.9 10^3/uL (0.1-1.4); ABSOLUTE NEUT (AUTO) 6.4 10^3/uL (1.7-8.2); BASOPHILS % (AUTO) 0.7 % (0-2); EOSINOPHILS % (AUTO) 0.6 % (0-6); HEMATOCRIT 24.5 % (37.9-51.0); LYMPHOCYTES % (AUTO) 28.7 % (13-45); MEAN CORPUSCULAR HEMOGLOBIN 29.1 pg (27.0-33.4); MEAN CORPUSCULAR HGB CONC 33.7 g/dL (32.0-36.0); MONOCYTES % (AUTO) 8.4 % (3-13); PLATELET COUNT 311 10^3/uL (150-450); RED BLOOD COUNT 2.83 10^6/uL (4.35-5.55); RED CELL DISTRIBUTION WIDTH 19.1 % (11.5-14.0); SEGMENTED NEUTROPHILS % (AUTO) 61.6 % (42-78); TOTAL CELLS COUNTED % (AUTO) 100 %; WHITE BLOOD COUNT 10.4 10^3/uL (4.0-10.5)
[2017-11-30 07:10] LABS: MEAN CORPUSCULAR VOLUME 86 fl (80-97)
[2017-11-30 07:11] LABS: HEMOGLOBIN 8.2 g/dL (13.5-17.0)
[2017-11-30 07:15] LABS: ANION GAP 10 (5-19); BLOOD UREA NITROGEN 11 mg/dL (7-20); CALCIUM 9.6 mg/dL (8.4-10.2); CARBON DIOXIDE 25 mmol/L (22-30); CHLORIDE 113 mmol/L (98-107); GLUCOSE 90 mg/dL (75-110); SODIUM 147.7 mmol/L (137-145)
[2017-11-30] MEDS: LEVETIRACETAM 500 MG TABLET PO SCH ×2 (09:37→21:29)
[2017-11-30] MEDS: FOLIC ACID 1 MG TABLET PO SCH (09:38)
[2017-11-30] MEDS: MISOPROSTOL 0.2 MG TABLET PO SCH ×2 (09:38→18:34)
[2017-11-30] MEDS: TAMSULOSIN HCL 0.4 MG CAP.SR.24H PO SCH (09:38)
[2017-11-30] MEDS: MEGESTROL ACETATE 20 MG TABLET PO SCH ×2 (09:38→18:33)
[2017-11-30] MEDS: HYDROXYUREA 500 MG CAPSULE PO SCH (09:39)
[2017-11-30] MEDS: DICLOFENAC SODIUM 50 MG TABLET.DR PO SCH ×2 (09:43→18:33)
--- NOTE | 2017-11-30 11:17 | Physician Advisory Note ---
Physician Advisor ProgressNote .: Pursuant to the plan for [facility], I have reviewed the medical record for this patient. Physician Advisor Statement: Still needs points from yesterday's Physician Advisor note addressed. Status: Appropriate for conversion to Inpatient status as of today. Thanks for your help! CK
[2017-11-30] MEDS ORDERED: NORMAL SALINE 250 ML IV PRN (16:43)
[2017-12-01] MEDS: LANSOPRAZOLE 30 MG TAB.RAP.DR PO SCH (05:05)
[2017-12-01 05:19] LABS: HEMATOCRIT 31.9 % (37.9-51.0); MEAN CORPUSCULAR HEMOGLOBIN 29.5 pg (27.0-33.4); MEAN CORPUSCULAR HGB CONC 33.6 g/dL (32.0-36.0); MEAN CORPUSCULAR VOLUME 88 fl (80-97); PLATELET COUNT 317 10^3/uL (150-450); RED BLOOD COUNT 3.63 10^6/uL (4.35-5.55); RED CELL DISTRIBUTION WIDTH 17.7 % (11.5-14.0); WHITE BLOOD COUNT 10.4 10^3/uL (4.0-10.5)
[2017-12-01 05:25] LABS: HEMOGLOBIN 10.7 g/dL (13.5-17.0)
--- NOTE | 2017-12-01 07:19 | PDOC PROGRESS REPORT ---
Subjective Progress Note for:: 12/01/17 Reason For Visit: L HIP HARDWARE FAILURE 27-year-old black male with a hardware failure the left proximal femur fixation , sickle cell disease, and anemia. Patient has been transfused and tentative plan will be to proceed with a conversion arthroplasty on the left this morning. Physical Exam Vital Signs: Temp Pulse Resp BP Pulse Ox 37.7 C 71 16 111/73 100 12/01/17 04:00 12/01/17 04:00 12/01/17 04:00 12/01/17 04:00 12/01/17 04:00 Intake & Output 11/30/17 12/01/17 12/02/17 06:59 06:59 06:59 Intake Total 2320 2191 Output Total 350 850 Balance 1970 1341 Weight 61.23 kg General appearance: PRESENT: mild distress Head exam: PRESENT: normocephalic GI/Abdominal exam: PRESENT: soft Rectal exam: PRESENT: deferred Neurological exam: PRESENT: alert Skin exam: PRESENT: dry, intact, warm. ABSENT: cyanosis, rash Results Laboratory Results: 12/01/17 04:40 11/30/17 06:25 11/29/17 11/30/17 12/01/17 09:45 06:25 04:40 WBC 10.4 RBC 3.63 L Hgb 10.7 L D Hct 31.9 L MCV 88 MCH 29.5 MCHC 33.6 RDW 17.7 H Plt Count 317 Sodium 147.7 H Potassium 5.0 Chloride 113 H Carbon Dioxide 25 Anion Gap 10 BUN 11 Creatinine 0.66 Est GFR ( Amer) > 60 Est GFR (Non-Af Amer) > 60 Glucose 90 Calcium 9.6 Blood Type A POSITIVE Antibody Screen NEGATIVE Status: Imported from PACS Assessment & Plan - Diagnosis (1) Hardware failure left hip Is this a current diagnosis for this admission?: Yes Plan: We will proceed with conversion arthroplasty this morning. (2) Anemia Is this a current diagnosis for this admission?: Yes Plan: Hematocrit is now above 30%.
[2017-12-01] MEDS ORDERED: THROMBIN (BOVINE) TOPICAL 20000 UNIT VIAL ONE (08:14)
[2017-12-01] MEDS ORDERED: THROMBIN (BOVINE) 5000 UNIT EPITAXIS KIT ONE (08:14)
[2017-12-01] MEDS ORDERED: BUPIVACAINE INJ/PF LIPOSOME/PF 266 MG/20 ML SDV ONE (08:15)
[2017-12-01] MEDS ORDERED: FENTANYL CITRATE INJ/PF 100 MCG/2 ML AMPUL ONE ×3 (09:19→12:08)
[2017-12-01] MEDS ORDERED: PROPOFOL INJ 200 MG/20 ML VIAL IV ONE (09:20)
[2017-12-01] MEDS ORDERED: ACETAMINOPHEN 100 ML IV ONE ×2 (09:20→17:38)
[2017-12-01] MEDS ORDERED: MIDAZOLAM 2 MG/2 ML INJ ONE (09:20)
[2017-12-01] MEDS ORDERED: DEXAMETHASONE SOD PHOSPHATE INJ 4 MG/1 ML VIAL ONE (09:20)
[2017-12-01] MEDS ORDERED: ONDANSETRON HCL INJ/PF 4 MG/2 ML SDV ONE (09:20)
[2017-12-01] MEDS ORDERED: MORPHINE SULFATE 10 MG/ML INJ ONE (09:21)
[2017-12-01] MEDS ORDERED: VANCOMYCIN HCL INJ 500 MG VIAL ONE (09:46)
[2017-12-01] MEDS ORDERED: CEFAZOLIN INJ 1 GM VIAL ONE (09:46)
[2017-12-01] MEDS ORDERED: TRANEXAMIC ACID INJ/PF 1,000 MG/10 ML SDV IV ONE ×2 (10:10→12:39)
[2017-12-01] MEDS ORDERED: MEPERIDINE HCL/PF INJ 25 MG/1 ML DISP.SYRIN IV PRN (10:35)
[2017-12-01] MEDS ORDERED: DIPHENHYDRAMINE HCL 50 MG/ML VIAL IV PRN ×2 (10:35→11:38)
[2017-12-01] MEDS ORDERED: OXYCODONE-ACETAMINOPHEN 5-325 MG TABLET PO PRN ×2 (10:35)
[2017-12-01] MEDS ORDERED: PROMETHAZINE HCL INJ 25 MG/1 ML VIAL IV PRN ×2 (10:35)
[2017-12-01] MEDS ORDERED: FENTANYL CITRATE INJ/PF 100 MCG/2 ML AMPUL IV PRN ×2 (10:35)
[2017-12-01] MEDS ORDERED: MORPHINE SULFATE 10 MG/ML INJ IV PRN ×3 (10:35→11:38)
--- NOTE | 2017-12-01 11:29 | Operative Report ---
Operative Report DATE OF SURGERY: 12/01/17 PREOPERATIVE DIAGNOSIS: Failed internal fixation left intratrochanteric femur fracture OPERATION: Left hip conversion arthroplasty. Sciatic neural lysis SURGEON: YON BALDWIN [employer] WORKER: JUANITA RAHMAN ANESTHESIA: GA TISSUE REMOVED OR ALTERED: Cultures to microbiology. Hardware to CSS ESTIMATED BLOOD LOSS: 400 PROCEDURE: With the patient in a right lateral decubitus position on the operating room table the left lower extremity hindquarter prepped and draped in sterile fashion. First the distal interlocking screw from the existing gamma nail is identified and removed uneventfully. Next a curvilinear incision was made over the greater trochanter and a posterior approach the hip was taken. Cultures of the hip bed are taken and sent to microbiology. The sciatic nerve is identified coming out of the sciatic notch and traced down to the gluteal sling. Is protected throughout this length throughout the remaining part of the procedure. The proximal interlock for the gamma nail was removed followed by the gamma nail itself. All hardware removal is relatively unremarkable. The acetabulum is inspected and there is a large central cavitary defect from the protruding hardware. The decision was made to proceed with a total hip arthroplasty is impaired compared to hemiarthroplasty. The acetabular repaired using hemispherical reamers until a 55 mm reamer seated. The reamings are then taken and impacted with reversed reaming using a 53 mm millimeter reamer into the central defect in the acetabulum. Subsequently a 56 mm Elsi revision hemispherical cup is impacted into position and secured with 2 screws. A 36 mm flat cross-link polyethylene liner was impacted into the shell. Next the femur was prepared for a [place] modular sabianist stem. Conical reamers were passed until a 19 mm reamer is felt biting the cortex. Subsequently a 19 mm x 1 55 mm Elsi modular sabianist stem was impacted into the canal and is stable. The proximal canal was prepared for 23 proximal body. A trial reduction was now performed with a standard proximal body and a 36 mm head with standard neck extension. This re-creates leg length and provides adequate anterior posterior stability. The hip is dislocated. The trial proximal body for the modular sabianist stem was removed. The final 23 mm standard proximal body is impacted onto the trunnion and secured with a screw using a torque wrench. The 36 mm chrome cobalt head is impacted onto the trunnion. The hip was reduced. The wound is shireen irrigated. The wound was then closed in layers with interrupted FiberWire, Vicryl, and sydney. A sterile compressive dressing was applied and the patient's return to the PACU in satisfactory condition.
[2017-12-01] MEDS ORDERED: MAG HYDROX/AL HYDROX/SIMETH SUSP 30 ML UDCUP PO PRN (11:38)
[2017-12-01] MEDS ORDERED: ACETAMINOPHEN 325 MG TABLET PO PRN (11:38)
[2017-12-01] MEDS ORDERED: ZOLPIDEM TARTRATE 5 MG TABLET PO PRN (11:38)
[2017-12-01] MEDS ORDERED: ONDANSETRON 4 MG TAB.RAPDIS PO PRN (11:38)
[2017-12-01] MEDS ORDERED: ONDANSETRON HCL INJ/PF 4 MG/2 ML SDV IV PRN (11:38)
[2017-12-01] MEDS ORDERED: RINGERS SOLUTION,LACTATED 1,000 ML IV PRN (11:38)
[2017-12-01] MEDS: DICLOFENAC SODIUM 50 MG TABLET.DR PO SCH ×2 (11:47→17:03)
[2017-12-01] MEDS: FENTANYL CITRATE INJ/PF 100 MCG/2 ML AMPUL IV PRN ×4 (12:10→12:30)
[2017-12-01 12:14] LABS: ABSOLUTE BASOPHILS # (AUTO) 0.1 10^3/uL (0.0-0.2); ABSOLUTE LYMPHOCYTES (AUTO) 2.2 10^3/uL (0.5-4.7); ABSOLUTE MONOCYTES (AUTO) 0.5 10^3/uL (0.1-1.4); ABSOLUTE NEUT (AUTO) 16.8 10^3/uL (1.7-8.2); BASOPHILS % (AUTO) 0.3 % (0-2); EOSINOPHILS % (AUTO) 0.2 % (0-6); HEMOGLOBIN 10.3 g/dL (13.5-17.0); LYMPHOCYTES % (AUTO) 11.1 % (13-45); MEAN CORPUSCULAR HEMOGLOBIN 29.3 pg (27.0-33.4); MEAN CORPUSCULAR HGB CONC 33.2 g/dL (32.0-36.0); MEAN CORPUSCULAR VOLUME 88 fl (80-97); MONOCYTES % (AUTO) 2.8 % (3-13); PLATELET COUNT 342 10^3/uL (150-450); RED BLOOD COUNT 3.51 10^6/uL (4.35-5.55); RED CELL DISTRIBUTION WIDTH 17.8 % (11.5-14.0); SEGMENTED NEUTROPHILS % (AUTO) 85.6 % (42-78); TOTAL CELLS COUNTED % (AUTO) 100 %; WHITE BLOOD COUNT 19.7 10^3/uL (4.0-10.5)
--- NOTE | 2017-12-01 12:41 | RADIOLOGY REPORT (SQ) ---
EXAM DESCRIPTION: PELVIS AP COMPLETED DATE/TIME: 12/01/2017 12:17 pm REASON FOR STUDY: Post Op Long Cassette in PACU COMPARISON: 03/06/2017. 08/17/2017. NUMBER OF VIEWS: AP pelvis with additional AP left femoral image. LIMITATIONS: None. FINDINGS: Chronic changes related to open reduction internal fixation right femur. Prominent callus regionally, unchanged. Now status post removal of left fixation hardware, replaced with left hip ar throplasty. Grossly appropriately articulating. Expected regional soft tissue gas and skin [place]. Generalized osteopenia. No acute fracture evident. OTHER: No other significant finding. IMPRESSION: Expected postoperative changes, now status post left hip replacement. TECHNICAL DOCUMENTATION: JOB ID: [id number]
[2017-12-01] MEDS: MEGESTROL ACETATE 20 MG TABLET PO SCH ×2 (13:56→17:03)
[2017-12-01] MEDS: LEVETIRACETAM 500 MG TABLET PO SCH ×2 (13:56→21:17)
[2017-12-01] MEDS ORDERED: SUCCINYLCHOLINE CHLORIDE INJ 200 MG/10 ML VIAL ONE (14:36)
[2017-12-01] MEDS ORDERED: ROCURONIUM BROMIDE INJ 50 MG/5 ML VIAL IV ONE (14:36)
[2017-12-01] MEDS: MISOPROSTOL 0.2 MG TABLET PO SCH ×2 (15:22→17:03)
[2017-12-01] MEDS: FOLIC ACID 1 MG TABLET PO SCH (15:26)
[2017-12-01] MEDS: TAMSULOSIN HCL 0.4 MG CAP.SR.24H PO SCH (15:26)
[2017-12-01] MEDS: HYDROXYUREA 500 MG CAPSULE PO SCH (15:26)
[2017-12-01] MEDS: TRAMADOL HCL 50 MG TABLET PO PRN (15:27)
[2017-12-01] MEDS: PREGABALIN 75 MG CAPSULE PO SCH (17:03)
[2017-12-01] MEDS: OXYCODONE HCL SR 10 MG TABLET PO SCH (21:17)
[2017-12-01] MEDS ORDERED: VANCOMYCIN HCL 1,000 MG in DEXTROSE 5%-WATER 250 ML IV ONE (23:38)
[2017-12-02] MEDS: MORPHINE SULFATE 10 MG/ML INJ IV PRN (00:24)
[2017-12-02] MEDS ORDERED: VANCOMYCIN HCL 1,000 MG in DEXTROSE 5%-WATER 250 ML IV ONE (00:30)
[2017-12-02] MEDS: TRAMADOL HCL 50 MG TABLET PO PRN (01:28)
[2017-12-02] MEDS: ACETAMINOPHEN 100 ML IV SCH ×3 (02:05→17:19)
[2017-12-02] MEDS ORDERED: LANSOPRAZOLE 30 MG TAB.RAP.DR PO SCH (06:00)
[2017-12-02] MEDS: LANSOPRAZOLE 30 MG TAB.RAP.DR PO SCH (06:28)
--- NOTE | 2017-12-02 06:42 | PDOC PROGRESS REPORT ---
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 Patient complaining of minimal discomfort. Physical Exam Vital Signs: Temp Pulse Resp BP Pulse Ox 36.3 C 105 H 16 120/75 100 12/02/17 00:00 12/02/17 00:00 12/02/17 00:00 12/02/17 00:00 12/02/17 00:00 Intake & Output 11/30/17 12/01/17 12/02/17 06:59 06:59 06:59 Intake Total 2320 2191 2800 Output Total 350 850 500 Balance 1970 1341 2300 Weight 61.23 kg General appearance: PRESENT: thin Head exam: PRESENT: normocephalic Respiratory exam: PRESENT: unlabored Cardiovascular exam: PRESENT: RRR Pulses: PRESENT: +1 pedal pulses bilateral GI/Abdominal exam: PRESENT: soft Rectal exam: PRESENT: deferred Extremities exam: PRESENT: other - Left hip dressing with a small amount of drainage. Leg lengths are equal. Distal neurovascular examination is intact. Neurological exam: PRESENT: alert, awake, oriented to person, oriented to place , oriented to time, oriented to situation. ABSENT: motor sensory deficit Psychiatric exam: PRESENT: appropriate affect Skin exam: PRESENT: dry, intact, warm. ABSENT: cyanosis, rash Results Laboratory Results: 12/01/17 12:00 11/30/17 06:25 12/01/17 12:00 WBC 19.7 H RBC 3.51 L Hgb 10.3 L Hct 31.0 L MCV 88 MCH 29.3 MCHC 33.2 RDW 17.8 H Plt Count 342 Seg Neutrophils % 85.6 H Lymphocytes % 11.1 L Monocytes % 2.8 L Eosinophils % 0.2 Basophils % 0.3 Absolute Neutrophils 16.8 H Absolute Lymphocytes 2.2 Absolute Monocytes 0.5 Absolute Eosinophils 0.0 Absolute Basophils 0.1 Impressions: Pelvis X-Ray 12/01/17 00:00 IMPRESSION: Expected postoperative changes, now status post left hip replacement. Assessment & Plan - Diagnosis (1) Hardware failure left hip Is this a current diagnosis for this admission?: Yes Plan: Patient postop day 1 from left hip conversion arthroplasty. Intraoperative cultures are pending. Plan for mobilization with physical therapy and weightbearing as tolerated basis. (2) Anemia Is this a current diagnosis for this admission?: Yes Plan: Postoperative hematocrit is 31%. Morning labs are pending. (3) Cachectic Is this a current diagnosis for this admission?: Yes Plan: Patient significantly underweight. Dietary consult has been requested. Adequate nutrition is needed to promote wound healing and recovery. - Time Time Spent with patient: 15-24 minutes Anticipated discharge: SNF Within: when bed available
[2017-12-02 07:09] LABS: HEMOGLOBIN 8.5 g/dL (13.5-17.0); MEAN CORPUSCULAR HEMOGLOBIN 29.7 pg (27.0-33.4); MEAN CORPUSCULAR HGB CONC 33.8 g/dL (32.0-36.0); MEAN CORPUSCULAR VOLUME 88 fl (80-97); PLATELET COUNT 284 10^3/uL (150-450); RED BLOOD COUNT 2.85 10^6/uL (4.35-5.55); RED CELL DISTRIBUTION WIDTH 17.6 % (11.5-14.0); WHITE BLOOD COUNT 13.3 10^3/uL (4.0-10.5)
[2017-12-02 07:28] LABS: ANION GAP 6 (5-19); BLOOD UREA NITROGEN 15 mg/dL (7-20); CALCIUM 9.1 mg/dL (8.4-10.2); CARBON DIOXIDE 26 mmol/L (22-30); CHLORIDE 110 mmol/L (98-107); GLUCOSE 103 mg/dL (75-110); POTASSIUM 4.4 mmol/L (3.6-5.0); SODIUM 142.1 mmol/L (137-145)
[2017-12-02] MEDS: TAMSULOSIN HCL 0.4 MG CAP.SR.24H PO SCH (10:51)
[2017-12-02] MEDS: OXYCODONE HCL SR 10 MG TABLET PO SCH ×2 (10:51→21:34)
[2017-12-02] MEDS: PREGABALIN 75 MG CAPSULE PO SCH ×2 (10:51→17:19)
[2017-12-02] MEDS: MISOPROSTOL 0.2 MG TABLET PO SCH ×2 (10:52→17:19)
[2017-12-02] MEDS: FOLIC ACID 1 MG TABLET PO SCH (10:52)
[2017-12-02] MEDS: DICLOFENAC SODIUM 50 MG TABLET.DR PO SCH ×2 (10:52→17:18)
[2017-12-02] MEDS: LEVETIRACETAM 500 MG TABLET PO SCH ×2 (10:52→21:34)
[2017-12-02] MEDS: HYDROXYUREA 500 MG CAPSULE PO SCH (15:08)
[2017-12-02] MEDS: MEGESTROL ACETATE 20 MG TABLET PO SCH ×2 (15:08→17:17)
--- NOTE | 2017-12-02 20:13 | RADIOLOGY REPORT (SQ) ---
EXAM DESCRIPTION: CHEST SINGLE VIEW COMPLETED DATE/TIME: 12/02/2017 8:04 pm REASON FOR STUDY: Temperature and Tachycardia COMPARISON: 11/03/2017. EXAM PARAMETERS: NUMBER OF VIEWS: One view. TECHNIQUE: Single frontal radiographic view of the chest acquired. RADIATION DOSE: NA LIMITATIONS: None. FINDINGS: LUNGS AND PLEURA: No opacities, masses or pneumothorax. No pleural effusion. MEDIASTINUM AND HILAR STRUCTURES: No masses. Contour normal. HEART AND VASCULAR STRUCTURES: Heart normal in size. Normal vasculature. BONES: No acute findings. HARDWARE: None in the chest. OTHER: No other significant finding. IMPRESSION: NO ACUTE RADIOGRAPHIC FINDING IN THE CHEST. TECHNICAL DOCUMENTATION: JOB ID: [id number] [employer]- All Rights Reserved
[2017-12-02] MEDS ORDERED: ACETAMINOPHEN 325 MG TABLET PO ONE (20:30)
[2017-12-02 23:41] LABS: APPEARANCE,URINE CLEAR; BILIRUBIN,URINE NEGATIVE (NEGATIVE); COLOR,URINE YELLOW; GLUCOSE, URINE NEGATIVE (NEGATIVE); KETONES,URINE NEGATIVE (NEGATIVE); LEUKOCYTE ESTERASE,URINE NEGATIVE (NEGATIVE); NITRITE,URINE NEGATIVE (NEGATIVE); PROTEIN,URINE 30 mg/dL (NEGATIVE); URINE SPECIFIC GRAVITY 1.013; UROBILINOGEN,URINE NEGATIVE mg/dL (<2.0)
[2017-12-03] MEDS: ACETAMINOPHEN 100 ML IV SCH ×2 (02:51→11:02)
[2017-12-03 05:08] LABS: HEMOGLOBIN 8.4 g/dL (13.5-17.0); MEAN CORPUSCULAR HEMOGLOBIN 29.9 pg (27.0-33.4); MEAN CORPUSCULAR HGB CONC 33.7 g/dL (32.0-36.0); MEAN CORPUSCULAR VOLUME 89 fl (80-97); PLATELET COUNT 315 10^3/uL (150-450); RED BLOOD COUNT 2.82 10^6/uL (4.35-5.55); RED CELL DISTRIBUTION WIDTH 18.1 % (11.5-14.0); WHITE BLOOD COUNT 17.5 10^3/uL (4.0-10.5)
[2017-12-03] MEDS: LANSOPRAZOLE 30 MG TAB.RAP.DR PO SCH (06:11)
--- NOTE | 2017-12-03 06:44 | PDOC PROGRESS REPORT ---
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 Overall the patient is much more alert and interactive this morning. Febrile spike to 101 last night. Continued tachycardia 115/min. Physical Exam Vital Signs: Temp Pulse Resp BP Pulse Ox 36.6 C 105 H 16 106/63 100 12/03/17 04:00 12/03/17 04:00 12/03/17 04:00 12/03/17 04:00 12/03/17 04:00 Intake & Output 12/01/17 12/02/17 12/03/17 06:59 06:59 06:59 Intake Total 2191 3260 1818 Output Total 609 660 1903 Balance 1341 2760 18 Weight 61.23 kg Physical Exam: Patient is much more alert interactive and appropriate this morning and he has been previously. General appearance: PRESENT: no acute distress, thin Head exam: PRESENT: normocephalic Teeth exam: PRESENT: poor dentation Respiratory exam: PRESENT: unlabored Cardiovascular exam: PRESENT: RRR Pulses: PRESENT: +1 pedal pulses bilateral Vascular exam: PRESENT: normal capillary refill GI/Abdominal exam: PRESENT: soft Rectal exam: PRESENT: deferred Extremities exam: PRESENT: other - Left hip dressing change today. The wound is well approximated clean dry and intact. There is no ecchymosis, erythema or drainage. There is a small amount of induration. Leg lengths are equal. Distal neurovascular examination is intact. Neurological exam: PRESENT: alert, awake, oriented to person, oriented to place , oriented to time, oriented to situation Psychiatric exam: PRESENT: appropriate affect Skin exam: PRESENT: dry, intact, warm. ABSENT: cyanosis, rash Results Laboratory Results: 12/03/17 04:10 12/02/17 06:54 12/02/17 12/02/17 12/02/17 06:54 06:54 23:00 WBC 13.3 H RBC 2.85 L Hgb 8.5 L Hct 25.0 L MCV 88 MCH 29.7 MCHC 33.8 RDW 17.6 H Plt Count 284 Sodium 142.1 Potassium 4.4 Chloride 110 H Carbon Dioxide 26 Anion Gap 6 BUN 15 Creatinine 0.73 Est GFR ( Amer) > 60 Est GFR (Non-Af Amer) > 60 Glucose 103 Calcium 9.1 Urine Color YELLOW Urine Appearance CLEAR Urine pH 5.0 Ur Specific [place] 1.013 Urine Protein 30 H Urine Glucose (UA) NEGATIVE Urine Ketones NEGATIVE Urine Blood SMALL H Urine Nitrite NEGATIVE Ur Leukocyte Esterase NEGATIVE Urine WBC (Auto) 1 Urine RBC (Auto) 0 12/03/17 04:10 WBC 17.5 H RBC 2.82 L Hgb 8.4 L Hct 25.0 L MCV 89 MCH 29.9 MCHC 33.7 RDW 18.1 H Plt Count 315 Sodium Potassium Chloride Carbon Dioxide Anion Gap BUN Creatinine Est GFR ( Amer) Est GFR (Non-Af Amer) Glucose Calcium Urine Color Urine Appearance Urine pH Ur Specific [place] Urine Protein Urine Glucose (UA) Urine Ketones Urine Blood Urine Nitrite Ur Leukocyte Esterase Urine WBC (Auto) Urine RBC (Auto) Impressions: Pelvis X-Ray 12/01/17 00:00 IMPRESSION: Expected postoperative changes, now status post left hip replacement. Chest X-Ray 12/02/17 00:00 IMPRESSION: NO ACUTE RADIOGRAPHIC FINDING IN THE CHEST. Status: Imported from PACS Assessment & Plan - Diagnosis (1) Hardware failure left hip Is this a current diagnosis for this admission?: Yes Plan: 27-year-old black male sickle cell disease status post left hip conversion arthroplasty. The patient continues to be tachycardic, had a febrile episode last night, and continues to make significant amounts of urine. UA last night is negative as is the chest x-ray. Hematocrit is stable at 25%. White blood cell count has increased to 17.5. At this point will start replacement IV fluids and continue on a course of observation. Consult Dr. Lien Schaefer regarding management of patient's sickle cell disease. Continued efforts with physical therapy to ambulate. There has been significant progress over the last day. Patient states a desire for discharge to [place] because of the better physical therapy and he will receive they are compared to the [facility]. (2) Anemia Is this a current diagnosis for this admission?: Yes Plan: Hematocrit stable at 25 (3) Cachectic Is this a current diagnosis for this admission?: Yes Plan: Dietary has been consulted - Plan Summary Plan Summary: Patient can be discharged to [place] when a bed is available.
[2017-12-03] MEDS: TAMSULOSIN HCL 0.4 MG CAP.SR.24H PO SCH (09:24)
[2017-12-03] MEDS: OXYCODONE HCL SR 10 MG TABLET PO SCH (09:24)
[2017-12-03] MEDS: FOLIC ACID 1 MG TABLET PO SCH (09:24)
[2017-12-03] MEDS: MISOPROSTOL 0.2 MG TABLET PO SCH ×2 (09:25→17:38)
[2017-12-03] MEDS: PREGABALIN 75 MG CAPSULE PO SCH ×2 (09:25→17:37)
[2017-12-03] MEDS: LEVETIRACETAM 500 MG TABLET PO SCH ×2 (09:25→21:11)
[2017-12-03] MEDS: HYDROXYUREA 500 MG CAPSULE PO SCH (09:25)
[2017-12-03] MEDS: MEGESTROL ACETATE 20 MG TABLET PO SCH ×2 (09:25→17:37)
[2017-12-03] MEDS: DICLOFENAC SODIUM 50 MG TABLET.DR PO SCH ×2 (09:26→17:37)
[2017-12-03] MEDS: MORPHINE SULFATE 10 MG/ML INJ IV PRN (21:10)
[2017-12-03] MEDS: RINGERS SOLUTION,LACTATED 1,000 ML IV PRN (21:11)
[2017-12-03 23:24] LABS: ABSOLUTE EOSINOPHILS # (AUTO) 0.4 10^3/uL (0.0-0.6); ABSOLUTE LYMPHOCYTES (AUTO) 2.1 10^3/uL (0.5-4.7); ABSOLUTE MONOCYTES (AUTO) 1.2 10^3/uL (0.1-1.4); ABSOLUTE NEUT (AUTO) 10.7 10^3/uL (1.7-8.2); BASOPHILS % (AUTO) 0.3 % (0-2); EOSINOPHILS % (AUTO) 2.6 % (0-6); HEMATOCRIT 29.3 % (37.9-51.0); LYMPHOCYTES % (AUTO) 14.7 % (13-45); MEAN CORPUSCULAR HEMOGLOBIN 29.7 pg (27.0-33.4); MEAN CORPUSCULAR VOLUME 87 fl (80-97); MONOCYTES % (AUTO) 8.6 % (3-13); PLATELET COUNT 268 10^3/uL (150-450); RED BLOOD COUNT 3.35 10^6/uL (4.35-5.55); RED CELL DISTRIBUTION WIDTH 16.5 % (11.5-14.0); SEGMENTED NEUTROPHILS % (AUTO) 73.8 % (42-78); TOTAL CELLS COUNTED % (AUTO) 100 %; WHITE BLOOD COUNT 14.5 10^3/uL (4.0-10.5)
[2017-12-04] MEDS: OXYCODONE HCL IR 5 MG TABLET PO PRN ×3 (02:12→21:46)
[2017-12-04 06:32] LABS: HEMATOCRIT 29.6 % (37.9-51.0); HEMOGLOBIN 9.6 g/dL (13.5-17.0); MEAN CORPUSCULAR HEMOGLOBIN 29.1 pg (27.0-33.4); MEAN CORPUSCULAR HGB CONC 32.6 g/dL (32.0-36.0); MEAN CORPUSCULAR VOLUME 89 fl (80-97); PLATELET COUNT 281 10^3/uL (150-450); RED BLOOD COUNT 3.31 10^6/uL (4.35-5.55); RED CELL DISTRIBUTION WIDTH 17.6 % (11.5-14.0); WHITE BLOOD COUNT 14.9 10^3/uL (4.0-10.5)
--- NOTE | 2017-12-04 06:58 | PDOC TRANSFER SUMMARY ---
General - Admit/Disc Date/PCP Admission Date/Primary Care Provider: 11/29/17 08:54 RUMA RUTH MD Discharge Date: 12/04/17 - Discharge Diagnosis (1) Hardware failure left hip Is this a current diagnosis for this admission?: Yes (2) Anemia Is this a current diagnosis for this admission?: Yes (3) Cachectic Is this a current diagnosis for this admission?: Yes - Additional Information Resuscitation Status: Full Code Discharge Diet: As Tolerated, Regular Discharge Activity: Balance Activity w/Rest, No Driving, No tub bath Home Medications: Hydroxyurea [Hydrea 500 mg Capsule] 500 mg PO DAILY 08/18/17 Levetiracetam [Keppra 500 mg Tablet] 500 mg PO BID 08/18/17 Tamsulosin HCl [Flomax 0.4 mg Cap.sr] 0.4 mg PO DAILY 08/18/17 Folic Acid 1 mg PO DAILY #90 tablet 08/19/17 Acetaminophen [Tylenol Extra Strength] 500 mg PO Q6 PRN 11/03/17 Diclofenac Sodium/Misoprostol [Arthrotec 50 EC Tablet] 50 mg PO BID 11/03/17 Megestrol Acetate 40 mg PO BID 11/03/17 Misoprostol [Cytotec 0.2 mg Tablet] 200 mcg PO BID 11/03/17 Tramadol HCl 50 mg PO Q6 PRN 11/03/17 Oxycodone HCl [Oxy-Ir 5 mg Tablet] 5 mg PO Q6HP PRN tablet 12/04/17 History of Present Illness Admission Date/PCP: 11/29/17 08:54 RUMA RUTH MD History of Present Illness: EMIL BARNES is a 27 year old male The patient is a 27-year-old black male with sickle cell disease and developmental delay who initially presented several months ago with bilateral hip fractures. He underwent open reduction internal fixation of both fractures and was subsequently discharged on a weightbearing as tolerated basis. Over the ensuing time the patient had an erosion of the hardware through the femoral head such that was protruding into the left hip. The patient was admitted for elective left hip conversion arthroplasty. Hospital Course Hospital Course: The patient was initially admitted for same day surgery on the left hip but this was delayed because of a preoperative hematocrit of 15%. He received 3 units of packed red blood cells which increased his hematocrit to 30%. He was subsequently taken to the operating room 2 days later and underwent a conversion arthroplasty which was uncomplicated. He was returned to floor in satisfactory condition. His hematocrit again decreased to 25% and under consultation with hematology oncology a decision was made to proceed with an additional 2 units of transfused red blood cells. The patient had one febrile episode 2 days prior to discharge and this has not recurred. Patient has made progress with physical therapy. His left hip dressing remains clean dry and intact. Leg lengths are equal. Distal neurovascular examination is intact. Physical Exam Vital Signs: Temp Pulse Resp BP Pulse Ox 36.8 C 84 14 106/71 100 12/03/17 23:45 12/03/17 23:45 12/03/17 23:45 12/03/17 23:45 12/03/17 23:45 Intake & Output 12/02/17 12/03/17 12/04/17 06:59 06:59 06:59 Intake Total 3260 1818 2390 Output Total 500 1800 950 Balance 2760 18 1440 Weight 57.2 kg General appearance: PRESENT: no acute distress, thin Head exam: PRESENT: normocephalic Respiratory exam: PRESENT: unlabored Cardiovascular exam: PRESENT: RRR Pulses: PRESENT: +1 pedal pulses bilateral Vascular exam: PRESENT: normal capillary refill GI/Abdominal exam: PRESENT: soft Rectal exam: PRESENT: deferred Extremities exam: PRESENT: other - Left hip dressing remains clean dry and intact. Leg lengths are equal. Distal neurovascular examination is intact. Neurological exam: PRESENT: alert, awake, oriented to person, oriented to place , oriented to time, oriented to situation. ABSENT: motor sensory deficit Psychiatric exam: PRESENT: appropriate affect, normal mood. ABSENT: homicidal ideation, suicidal ideation Skin exam: PRESENT: dry, intact, warm. ABSENT: cyanosis, rash Results Laboratory Results: 12/04/17 05:41 12/02/17 06:54 12/03/17 12/03/17 12/04/17 09:24 22:30 05:41 WBC 14.5 H 14.9 H RBC 3.35 L 3.31 L Hgb 10.0 L 9.6 L Hct 29.3 L 29.6 L MCV 87 89 MCH 29.7 29.1 MCHC 34.0 32.6 RDW 16.5 H 17.6 H Plt Count 268 281 Seg Neutrophils % 73.8 Lymphocytes % 14.7 Monocytes % 8.6 Eosinophils % 2.6 Basophils % 0.3 Absolute Neutrophils 10.7 H Absolute Lymphocytes 2.1 Absolute Monocytes 1.2 Absolute Eosinophils 0.4 Absolute Basophils 0.0 Blood Type A POSITIVE Antibody Screen NEGATIVE Impressions: Pelvis X-Ray 12/01/17 00:00 IMPRESSION: Expected postoperative changes, now status post left hip replacement. Chest X-Ray 12/02/17 00:00 IMPRESSION: NO ACUTE RADIOGRAPHIC FINDING IN THE CHEST. Status: Imported from PACS Transfer Plan - Disposition Transfer Plan: Patient to be transferred to [facility] intermediate facility for ongoing postoperative rehabilitation and weightbearing as tolerated basis. Left hip dressing can be changed as needed. Follow-up with Dr. Marcos in the [facility] for surgery in 2 weeks for staple removal. - Time Spent with Patient Time spent with patient: Less than 30 Minutes
[2017-12-04] MEDS: LANSOPRAZOLE 30 MG TAB.RAP.DR PO SCH (07:11)
[2017-12-04] MEDS: FOLIC ACID 1 MG TABLET PO SCH (08:58)
[2017-12-04] MEDS: LEVETIRACETAM 500 MG TABLET PO SCH ×2 (08:59→21:47)
[2017-12-04] MEDS: PREGABALIN 75 MG CAPSULE PO SCH ×2 (08:59→17:36)
[2017-12-04] MEDS: MEGESTROL ACETATE 20 MG TABLET PO SCH ×2 (09:00→17:36)
[2017-12-04] MEDS: HYDROXYUREA 500 MG CAPSULE PO SCH (09:00)
[2017-12-04] MEDS: DICLOFENAC SODIUM 50 MG TABLET.DR PO SCH ×2 (09:00→17:36)
[2017-12-04] MEDS: TAMSULOSIN HCL 0.4 MG CAP.SR.24H PO SCH (09:00)
[2017-12-04] MEDS: MISOPROSTOL 0.2 MG TABLET PO SCH ×2 (09:00→17:35)
[2017-12-04] MEDS: TRAMADOL HCL 50 MG TABLET PO PRN (21:46)
[2017-12-05] MEDS: LANSOPRAZOLE 30 MG TAB.RAP.DR PO SCH (05:53)
[2017-12-05] MEDS: RINGERS SOLUTION,LACTATED 1,000 ML IV PRN ×3 (05:57→22:08)
[2017-12-05] MEDS: MORPHINE SULFATE 10 MG/ML INJ IM PRN (06:37)
--- NOTE | 2017-12-05 07:20 | PDOC PROGRESS REPORT ---
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 Physical Exam Vital Signs: Temp Pulse Resp BP Pulse Ox 36.7 C 112 H 16 121/73 100 12/05/17 03:09 12/04/17 23:22 12/04/17 23:22 12/04/17 23:22 12/05/17 00:43 Intake & Output 12/04/17 12/05/17 12/06/17 06:59 06:59 06:59 Intake Total 2390 2967 Output Total 950 Balance 1440 2967 Weight 57.2 kg General appearance: PRESENT: no acute distress Respiratory exam: PRESENT: unlabored Cardiovascular exam: PRESENT: RRR Pulses: PRESENT: +1 pedal pulses bilateral Vascular exam: PRESENT: normal capillary refill Extremities exam: PRESENT: other - Leg lengths are equal. Distal neurovascular examination is intact. Dressing is dry. Results Laboratory Results: 12/04/17 05:41 12/02/17 06:54 Impressions: Pelvis X-Ray 12/01/17 00:00 IMPRESSION: Expected postoperative changes, now status post left hip replacement. Chest X-Ray 12/02/17 00:00 IMPRESSION: NO ACUTE RADIOGRAPHIC FINDING IN THE CHEST. Status: Imported from PACS Assessment & Plan - Diagnosis (1) Hardware failure left hip Is this a current diagnosis for this admission?: Yes Plan: 27-year-old black male with sickle cell disease status post left hip conversion arthroplasty now with a second febrile episode last night with a T-max of 38.5. Patient's had chest x-rays and urinalysis without identification of an underlying infectious process. Wound looks benign. Febrile episode may be attributable to sickle cell disease. (2) Anemia Is this a current diagnosis for this admission?: Yes (3) Cachectic Is this a current diagnosis for this admission?: Yes - Time Time Spent with patient: Less than 15 minutes Anticipated discharge: SNF Within: when bed available
[2017-12-05] MEDS: MEGESTROL ACETATE 20 MG TABLET PO SCH ×2 (09:20→18:58)
[2017-12-05] MEDS: DICLOFENAC SODIUM 50 MG TABLET.DR PO SCH ×2 (09:21→19:00)
[2017-12-05] MEDS: OXYCODONE HCL IR 5 MG TABLET PO PRN (09:21)
[2017-12-05] MEDS: PREGABALIN 75 MG CAPSULE PO SCH ×2 (09:21→19:00)
[2017-12-05] MEDS: TAMSULOSIN HCL 0.4 MG CAP.SR.24H PO SCH (09:21)
[2017-12-05] MEDS: LEVETIRACETAM 500 MG TABLET PO SCH ×2 (09:21→22:08)
[2017-12-05] MEDS: FOLIC ACID 1 MG TABLET PO SCH (09:22)
[2017-12-05] MEDS: HYDROXYUREA 500 MG CAPSULE PO SCH (09:22)
[2017-12-05] MEDS: MISOPROSTOL 0.2 MG TABLET PO SCH ×2 (09:25→18:58)
[2017-12-06] MEDS: LANSOPRAZOLE 30 MG TAB.RAP.DR PO SCH (05:36)
[2017-12-06] MEDS: RINGERS SOLUTION,LACTATED 1,000 ML IV PRN (05:37)
[2017-12-06] MEDS: MORPHINE SULFATE 10 MG/ML INJ IM PRN (05:47)
[2017-12-06] MEDS: LEVETIRACETAM 500 MG TABLET PO SCH (10:31)
[2017-12-06] MEDS: PREGABALIN 75 MG CAPSULE PO SCH (10:31)
[2017-12-06] MEDS: FOLIC ACID 1 MG TABLET PO SCH (10:31)
[2017-12-06] MEDS: OXYCODONE HCL IR 5 MG TABLET PO PRN (10:32)
[2017-12-06] MEDS: TAMSULOSIN HCL 0.4 MG CAP.SR.24H PO SCH (10:33)
[2017-12-06] MEDS: MEGESTROL ACETATE 20 MG TABLET PO SCH (10:41)
[2017-12-06] MEDS: DICLOFENAC SODIUM 50 MG TABLET.DR PO SCH (10:41)
[2017-12-06] MEDS: HYDROXYUREA 500 MG CAPSULE PO SCH (10:41)
[2017-12-06] MEDS: MISOPROSTOL 0.2 MG TABLET PO SCH (10:42)
[2017-12-06 16:09] VITALS: BP 107/68
== END 2017-12-06 16:30 | DRG 467 ==
LOC: INOR 08:54 → 4S 12:20
PROVIDERS: ADMIT Orthopaedic Surgery; ATTEND Orthopaedic Surgery
PROC: 30233N1 Transfusion of Nonautologous Red Blood Cells into Peripheral Vein, Percutaneous Approach (ICD-10-PCS; 2017-11-29)
PROC: 0SPB0JZ Removal of Synthetic Substitute from Left Hip Joint, Open Approach (ICD-10-PCS; 2017-12-01)
PROC: 01NF0ZZ Release Sciatic Nerve, Open Approach (ICD-10-PCS; 2017-12-01)
PROC: 0SRB02A Replacement of Left Hip Joint with Metal on Polyethylene Synthetic Substitute, Uncemented, Open Approach (ICD-10-PCS; principal; 2017-12-01 09:30)
DX: T84.091A Other mechanical complication of internal left hip prosthesis, initial encounter (principal); R64 Cachexia; Z68.1 Body mass index [BMI] 19.9 or less, adult; D57.1 Sickle-cell disease without crisis; Z53.09 Procedure and treatment not carried out because of other contraindication; Z79.899 Other long term (current) drug therapy
CPT/HCPCS: 01214; 36415; 36430; 71045; 72170; 80048; 81001; 83735; 84100; 85025; 85027; 86850; 86900; 86901; 86902; 86920; 87070; 87075; 87205; 88304; 88311; 93005; 93010; 94799; C1713; C9290; G8978-GP; G8979-GP; G8987-GO; G8988-GO; J0131; J0330; J0690; J1100; J1741; J2250; J2270; J2405; J2704; J3010; J3370; J3490; J7050; J7060; J7120; P9016

== ENCOUNTER 2018-01-05 17:31 | Inpatient (IN) | payer MEDICARE, MEDICAID ==
[2018-01-05 18:57] LABS: HEMATOCRIT 19.2 % (37.9-51.0); MEAN CORPUSCULAR HGB CONC 32.3 g/dL (32.0-36.0); MEAN CORPUSCULAR VOLUME 87 fl (80-97); PLATELET COUNT 337 10^3/uL (150-450); RED BLOOD COUNT 2.22 10^6/uL (4.35-5.55); RED CELL DISTRIBUTION WIDTH 16.5 % (11.5-14.0); WHITE BLOOD COUNT 26.2 10^3/uL (4.0-10.5)
[2018-01-05 19:09] LABS: ALANINE AMINOTRANSFERASE 46 U/L (21-72); ALBUMIN 2.7 g/dL (3.5-5.0); ALKALINE PHOSPHATASE 207 U/L (38-126); ANION GAP 12 (5-19); ASPARTATE AMINO TRANSFERASE 27 U/L (17-59); BILIRUBIN,DIRECT 0.9 mg/dL (0.0-0.4); BILIRUBIN,TOTAL 0.9 mg/dL (0.2-1.3); BLOOD UREA NITROGEN 90 mg/dL (7-20); CALCIUM 9.1 mg/dL (8.4-10.2); CARBON DIOXIDE 20 mmol/L (22-30); CHLORIDE 109 mmol/L (98-107); GLUCOSE 118 mg/dL (75-110); POTASSIUM 4.1 mmol/L (3.6-5.0); TOTAL PROTEIN 7.2 g/dL (6.3-8.2)
[2018-01-05 19:14] LABS: HEMOGLOBIN 6.2 g/dL (13.5-17.0)
[2018-01-05 19:51] LABS: IRON(TIBC) 43.4 ug/dL (49-181)
[2018-01-05 20:37] LABS: ABSOLUTE RETICS # 0.043 10^6/uL (0.028-0.122); RETICULOCYTE COUNT (AUTO) 1.97 % (0.66-2.85)
--- NOTE | 2018-01-05 21:21 | RADIOLOGY REPORT (SQ) ---
EXAM DESCRIPTION: CHEST PA/LAT COMPLETED DATE/TIME: 01/05/2018 7:33 pm REASON FOR STUDY: tachycardia, sepsis COMPARISON: 03/07/2017 EXAM PARAMETERS: NUMBER OF VIEWS: two views TECHNIQUE: Digital Frontal and Lateral radiographic views of the chest acquired. RADIATION DOSE: NA LIMITATIONS: none FINDINGS: LUNGS AND PLEURA: No opacities, masses or pneumothorax. No pleural effusion. MEDIASTINUM AND HILAR STRUCTURES: No masses or contour abnormalities. HEART AND VASCULAR STRUCTURES: The heart size is prominent for the patient's age. There is no eviden ce of failure. BONES: No acute findings. HARDWARE: None in the chest. OTHER: No other significant finding. IMPRESSION: Prominent cardiac silhouette with no acute pulmonary disease. TECHNICAL DOCUMENTATION: JOB ID: [id number] [employer]- All Rights Reserved Reading location - IP/workstation name: [email or web address]
--- NOTE | 2018-01-05 21:24 | RADIOLOGY REPORT (SQ) ---
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 TECHNIQUE: AP pelvis and additional frog-leg view of the right and left hip. LIMITATIONS: None. FINDINGS: MINERALIZATION: Normal. RIGHT HIP: There is a medullary wisam in the right femur with a long cannulated screw extending through the femoral head. No acute osseous abnormality is appreciated. There is some bony overgrowth. LEFT HIP: A total left hip arthroplasty is present. No acute abnormality is seen. PUBIS AND ISCHIUM: No fracture. PELVIS: No fracture. SACRUM: No fracture or dislocation. No worrisome bone lesions. LOWER LUMBAR SPINE: No fracture or dislocation. No worrisome bone lesions. No significant disc disea se. SOFT TISSUES: No findings. OTHER: No other significant finding. IMPRESSION: Prior surgical changes with no acute abnormality appreciated. TECHNICAL DOCUMENTATION: JOB ID: [id number] [employer]- All Rights Reserved Reading location - IP/workstation name: [email or web address]
[2018-01-05] MEDS ORDERED: LIDOCAINE 1% INJ-PF (10 MG/ML) 30 ML SDV ONE (21:28)
[2018-01-05 22:21] LABS: FOLATE > 20.00 ng/mL (>2.76)
--- NOTE | 2018-01-05 22:34 | RADIOLOGY REPORT (SQ) ---
EXAM DESCRIPTION: CHEST SINGLE VIEW COMPLETED DATE/TIME: 01/05/2018 10:14 pm REASON FOR STUDY: central line placement COMPARISON: Earlier exam same date EXAM PARAMETERS: NUMBER OF VIEWS: One view. TECHNIQUE: Single frontal radiographic view of the chest acquired. RADIATION DOSE: NA LIMITATIONS: None. FINDINGS: The left subclavian central venous catheter is projected over the left IJ, tip is beyond t he superior margin of the image near the cranial junction. OTHER: No other significant finding. IMPRESSION: The left subclavian central venous catheter is projected over the left IJ, tip is beyond the superior margin of the image near the cranial junction. TECHNICAL DOCUMENTATION: JOB ID: [id number] 2010 [employer]- All Rights Reserved Reading location - IP/workstation name: [email or web address]
[2018-01-05] MEDS: TRAMADOL HCL 50 MG TABLET PO PRN (23:23)
[2018-01-05] MEDS: NORMAL SALINE 1000 ML 1,000 ML IV PRN (23:24)
--- NOTE | 2018-01-05 23:28 | OPERATIVE REPORT E ---
Operative Report NAME: EMIL BARNES : 1990 AGE: 28Y DATE OF SURGERY: 01/05/2018 ROOM: 322 PREOPERATIVE DIAGNOSIS: Poor veins for IV access. POSTOPERATIVE DIAGNOSIS: Poor veins for IV access. OPERATION: Placement of left subclavian vein catheter after failed attempt to place a left internal jugular vein catheter under ultrasound guidance. SURGEON: ALFONSO SUAREZ M.D. ANESTHESIA: Local. INDICATION: This is a 28-year-old female with sickle cell disease. The nurses took more than half an hour just to put a 22gauge IV line. Patient needed medications; therefore needed better access. PROCEDURE: The left neck and infraclavicular area was then prepped and draped in the usual sterile fashion. With the help of the ultrasound, the left internal jugular vein was identified. Local anesthesia infiltrated over the internal jugular vein and the vein was subsequently punctured. A guidewire was then passed through the needle but unable to be fed beyond the 20-cm vale. Because of this the attempt to do this left jugular vein was abandoned after another needle and catheter with the same results. Next, the left infraclavicular area lateral third was then anesthetized with Xylocaine. Left subclavian vein was then punctured and guidewire passed through the needle. This time the guidewire threaded all the way up to about a 30-cm vale. The needle was removed and the puncture site dilated. A triple Lumen catheter was then passed through the guidewire to a distance of about 18 cm. Three ports of the catheter showed easy aspiration of blood and easy installation of saline. Catheter was then anchored to the skin with 3-0 silk. Biopatch placed at the puncture site and a transparent dressing placed over the Biopatch and the catheter. Chest x-ray will be obtained after placement. Patient tolerated procedure well. DICTATING PHYSICIAN: ALFONSO SUAREZ M.D. [id number] PHY#: [id number] ID: [id number] JOB#: [id number] ACCT: [id number] cc:ALFONSO SUAREZ M.D. > [facility]
--- NOTE | 2018-01-06 03:02 | RADIOLOGY REPORT (SQ) ---
EXAM DESCRIPTION: U/S RETROPERITON [facility] CLINICAL HISTORY: acute kidney injury COMPARISON: None. TECHNIQUE: Real-time sonographic images of the retroperitoneum were obtained using a curved multihertz transducer. FINDINGS: The visualized portions of the aorta and IVC are unremarkable. The right kidney measures 11.1 cm in length. The left kidney measures 9.9 cm in length. No solid renal mass, shadowing renal calculi, or hydronephrosis. Mild increased bilateral renal cortical echogenicity. Normal urinary bladder wall thickness. The base of the bladder there is echogenic mobile material of indeterminate etiology. This may represent hemorrhagic, infectious, or inflammatory debris. This measures 4.0 x 1.3 x 6.3 cm. IMPRESSION: 1. Mild increased bilateral renal cortical echogenicity. This could be seen with medical renal disease. No hydronephrosis. 2. Echogenic material in the base of the urinary bladder likely represents infectious, inflammatory, or hemorrhagic debris. Correlation with urinalysis recommended.
[2018-01-06] MEDS: TRAMADOL HCL 50 MG TABLET PO PRN ×2 (06:32→09:50)
[2018-01-06 08:47] LABS: MEAN CORPUSCULAR HEMOGLOBIN 29.4 pg (27.0-33.4); MEAN CORPUSCULAR HGB CONC 33.5 g/dL (32.0-36.0); MEAN CORPUSCULAR VOLUME 88 fl (80-97); PLATELET COUNT 290 10^3/uL (150-450); RED BLOOD COUNT 2.85 10^6/uL (4.35-5.55); WHITE BLOOD COUNT 27.2 10^3/uL (4.0-10.5)
[2018-01-06 08:52] LABS: HEMOGLOBIN 8.4 g/dL (13.5-17.0)
[2018-01-06 09:03] LABS: ANION GAP 13 (5-19); BLOOD UREA NITROGEN 81 mg/dL (7-20); CALCIUM 8.8 mg/dL (8.4-10.2); CARBON DIOXIDE 20 mmol/L (22-30); CHLORIDE 112 mmol/L (98-107); GLUCOSE 111 mg/dL (75-110); SODIUM 145.3 mmol/L (137-145)
[2018-01-06] MEDS: FOLIC ACID 1 MG TABLET PO SCH (09:50)
[2018-01-06 09:58] LABS: AMORPHOUS SEDIMENT,URINE 1+ /HPF; APPEARANCE,URINE CLOUDY; BILIRUBIN,URINE NEGATIVE (NEGATIVE); COLOR,URINE YELLOW; GLUCOSE, URINE NEGATIVE (NEGATIVE); KETONES,URINE NEGATIVE (NEGATIVE); LEUKOCYTE ESTERASE,URINE NEGATIVE (NEGATIVE); NITRITE,URINE NEGATIVE (NEGATIVE); PROTEIN,URINE 30 mg/dL (NEGATIVE); URINE SPECIFIC GRAVITY 1.012
[2018-01-06 10:22] LABS: UR PRO/CREAT RATIO RESULT 0.5 mg/mg (0.0-0.2); URINE CREATININE 85.2 mg/dL (24-392); URINE PROTEIN 45.6 mg/dL (<12)
[2018-01-06] MEDS ORDERED: CEFTRIAXONE 1 GM/D5W RTU 50 ML IV SCH (13:00)
[2018-01-06] MEDS: CEFTRIAXONE SODIUM 1,000 MG in NORMAL SALINE 100 ML IV SCH (14:28)
[2018-01-06] MEDS: NORMAL SALINE 1000 ML 1,000 ML IV PRN (14:29)
--- NOTE | 2018-01-06 17:43 | PDOC H&P ---
History of Present Illness Admission Date/PCP: 01/05/18 17:31 RUMA RUTH MD History of Present Illness: EMIL BARNES is a 28 year old male he has a history of sickle cell disease , he recently had left hip arthroplasty, he came to the office with the uncle for evaluation of difficulty bearing weight, extreme fatigue, failure to thrive. He was evaluated in the office on examination he was very pale and looks very ill, he came to the office in the early hours about 9:00 a.m., he was admitted directly from the office to the hospital but the patient did not show up for admission until 6 PM. The blood work that was done revealed serum creatinine of 4, there was leukocytosis, there was no apparent source of infection, urine collection was not possible for some unknown reasons, the chest x-ray did not show any pneumonia or any acute infiltrate. The bilateral hip x-ray was normal, there was no loosening, he has stage I decubitus ulcer in the sacrum, is very frail looking, it was extremely anemic the hemoglobin was 6. He was initially brought in for observation but with the acute kidney injury and other comorbid conditions the admission was transitioned to inpatient care. Kidney ultrasound was done , illustrated, right kidney measures 11.1 cm, left kidney measures 9.9 cm, no solid renal masses there was no hydronephrosis. There is mild increased bilateral renal cortical echogenicity. There is normal urinary bladder wall thickness, the base of the bladder there is echogenic mobile material of indeterminate etiology, it was felt this could represent hemorrhage infection or inflammatory debris this measures 4 x 1.3 x 6.3 cm Past Medical History Cardiac Medical History: Reports: Heart Murmur Pulmonary Medical History: Neurological Medical History: Reports: Seizures - ON MEDS GI Medical History: Reports: Gastroesophageal Reflux Disease Psychiatric Medical History: Reports: Depression Hematology: Reports: Sickle Cell Disease, Bleeding Tendencies Past Surgical History Past Surgical History: Reports: Cholecystectomy, Orthopedic Surgery - Patient underwent open reduction internal fixation of bilateral proximal fe, Other - Patient tracheostomy and PEG tube placement [facility] 3 years Social History Smoking Status: Never Smoker Frequency of Alcohol Use: None Hx Recreational Drug Use: No Drugs: None Hx Prescription Drug Abuse: No Family History Family History: Reviewed & Not Pertinent, Other Parental Family History Reviewed: Yes Children Family History Reviewed: Yes Sibling(s) Family History Reviewed.: Yes Medication/Allergy Home Medications: Diclofenac Sodium [Voltaren 50 mg Tablet.dr] 50 mg PO BID 01/05/18 Folic Acid [Folvite 1 mg Tablet] 1 mg PO DAILY 01/05/18 Hydroxyurea [Hydroxyurea] 500 mg PO DAILY 01/05/18 Levetiracetam [Levetiracetam] 500 mg PO BID 01/05/18 Megestrol Acetate 40 mg PO BID 01/05/18 Misoprostol [Cytotec 0.2 mg Tablet] 200 mcg PO BID 01/05/18 Tamsulosin HCl [Tamsulosin HCl] 0.4 mg PO DAILY 01/05/18 Tramadol HCl [Tramadol HCl] 50 mg PO Q6HP PRN 01/05/18 Allergies/Adverse Reactions: No Known Drug Allergies Allergy (Unknown, Verified 11/03/17 10:00) Review of Systems Constitutional: PRESENT: chills, fatigue Eyes: ABSENT: visual disturbances Ears: ABSENT: hearing changes Cardiovascular: ABSENT: chest pain, dyspnea on exertion, edema, orthropnea, palpitations Respiratory: ABSENT: cough, hemoptysis Gastrointestinal: ABSENT: abdominal pain, constipation, diarrhea, hematemesis, hematochezia, nausea, vomiting Genitourinary: ABSENT: dysuria, hematuria Musculoskeletal: ABSENT: joint swelling Integumentary: ABSENT: rash, wounds Neurological: ABSENT: abnormal gait, abnormal speech, confusion, dizziness, focal weakness, syncope Psychiatric: ABSENT: anxiety, depression, homidical ideation, suicidal ideation Endocrine: ABSENT: cold intolerance, heat intolerance, menstrual abnormalities, polydipsia, polyuria Hematologic/Lymphatic: ABSENT: easy bleeding, easy bruising, lymphadenopathy Physical Exam Vital Signs: Temp Pulse Resp BP Pulse Ox 97.1 F 113 H 18 123/72 96 01/06/18 15:25 01/06/18 15:25 01/06/18 15:25 01/06/18 15:25 01/06/18 15:25 Intake & Output 01/05/18 01/06/18 01/07/18 06:59 06:59 06:59 Intake Total 2098 Output Total 0 Balance 2098 Weight 52.5 kg General appearance: PRESENT: no acute distress Eye exam: PRESENT: conjunctiva pale Mouth exam: PRESENT: dry mucosa Neck exam: PRESENT: full ROM Respiratory exam: PRESENT: clear to auscultation ishan Cardiovascular exam: PRESENT: RRR, +S1, +S2 Vascular exam: PRESENT: normal capillary refill GI/Abdominal exam: PRESENT: normal bowel sounds, soft Rectal exam: PRESENT: deferred Neurological exam: PRESENT: alert Psychiatric exam: PRESENT: appropriate affect, normal mood Skin exam: PRESENT: dry, intact, warm Results Laboratory Results: 01/06/18 08:33 01/06/18 08:33 01/05/18 01/05/18 01/05/18 18:42 18:42 18:42 WBC 26.2 H RBC 2.22 L Hgb 6.2 L Hct 19.2 L MCV 87 MCH 28.0 MCHC 32.3 RDW 16.5 H Plt Count 337 Retic Count (auto) Absolute Retic Sodium 141.0 Potassium 4.1 Chloride 109 H Carbon Dioxide 20 L Anion Gap 12 BUN 90 H Creatinine 4.26 H Est GFR ( Amer) 20 L Est GFR (Non-Af Amer) 16 L Glucose 118 H Calcium 9.1 Iron 43.4 L TIBC 135 L % Saturation 32 Ferritin 6770.00 H Total Bilirubin 0.9 AST 27 ALT 46 Alkaline Phosphatase 207 H Total Protein 7.2 Albumin 2.7 L Vitamin B12 Folate Urine Color Urine Appearance Urine pH Ur Specific [place] Urine Protein Urine Glucose (UA) Urine Ketones Urine Blood Urine Nitrite Ur Leukocyte Esterase Urine WBC (Auto) Urine RBC (Auto) Blood Type Antibody Screen 01/05/18 01/05/18 01/05/18 18:42 18:42 20:12 WBC RBC Hgb Hct MCV MCH MCHC RDW Plt Count Retic Count (auto) 1.97 Absolute Retic 0.043 Sodium Potassium Chloride Carbon Dioxide Anion Gap BUN Creatinine Est GFR ( Amer) Est GFR (Non-Af Amer) Glucose Calcium Iron Cancelled TIBC Cancelled % Saturation Cancelled Ferritin Cancelled Total Bilirubin AST ALT Alkaline Phosphatase Total Protein Albumin Vitamin B12 794.0 Folate > 20.00 Urine Color Urine Appearance Urine pH Ur Specific [place] Urine Protein Urine Glucose (UA) Urine Ketones Urine Blood Urine Nitrite Ur Leukocyte Esterase Urine WBC (Auto) Urine RBC (Auto) Blood Type A POSITIVE Antibody Screen NEGATIVE 01/06/18 01/06/18 01/06/18 08:33 08:33 09:41 WBC 27.2 H RBC 2.85 L Hgb 8.4 L D Hct 25.0 L MCV 88 MCH 29.4 MCHC 33.5 RDW 16.0 H Plt Count 290 Retic Count (auto) Absolute Retic Sodium 145.3 H Potassium 4.0 Chloride 112 H Carbon Dioxide 20 L Anion Gap 13 BUN 81 H Creatinine 2.89 H Est GFR ( Amer) 31 L Est GFR (Non-Af Amer) 26 L Glucose 111 H Calcium 8.8 Iron TIBC % Saturation Ferritin Total Bilirubin AST ALT Alkaline Phosphatase Total Protein Albumin Vitamin B12 Folate Urine Color YELLOW Urine Appearance CLOUDY Urine pH 5.0 Ur Specific [place] 1.012 Urine Protein 30 H Urine Glucose (UA) NEGATIVE Urine Ketones NEGATIVE Urine Blood MODERATE H Urine Nitrite NEGATIVE Ur Leukocyte Esterase NEGATIVE Urine WBC (Auto) 3 Urine RBC (Auto) 1 Blood Type Antibody Screen Impressions: Chest X-Ray 01/05/18 00:00 IMPRESSION: The left subclavian central venous catheter is projected over the left IJ, tip is beyond the superior margin of the image near the cranial junction. Hip X-Ray 01/05/18 00:00 IMPRESSION: Prior surgical changes with no acute abnormality appreciated. Renal Ultrasound 01/06/18 00:00 IMPRESSION: 1. Mild increased bilateral renal cortical echogenicity. This could be seen with medical renal disease. No hydronephrosis. 2. Echogenic material in the base of the urinary bladder likely represents infectious, inflammatory, or hemorrhagic debris. Correlation with urinalysis recommended. Assessment & Plan - Diagnosis (1) Sepsis Qualifiers: Sepsis type: sepsis due to unspecified organism Qualified Code(s): A41.9 - Sepsis, unspecified organism Is this a current diagnosis for this admission?: Yes (2) Acute kidney injury Is this a current diagnosis for this admission?: Yes Plan: This is probably prerenal acute kidney injury (3) Sickle cell anemia Qualifiers: Sickle-cell associated disorders: without crisis Qualified Code(s): D57.1 - 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 Is this a current diagnosis for this admission?: Yes Plan: Transfuse with red blood cells
[2018-01-06] MEDS: LEVETIRACETAM 500 MG TABLET PO SCH (17:58)
--- NOTE | 2018-01-06 22:01 | EKG REPORT ---
SEVERITY:- OTHERWISE NORMAL ECG - SINUS TACHYCARDIA VS SVT : Confirmed by: Swathi Palomares 06-Jan-2018 22:00:35
[2018-01-07 05:48] LABS: HEMATOCRIT 22.7 % (37.9-51.0); MEAN CORPUSCULAR HEMOGLOBIN 29.3 pg (27.0-33.4); MEAN CORPUSCULAR HGB CONC 33.3 g/dL (32.0-36.0); MEAN CORPUSCULAR VOLUME 88 fl (80-97); PLATELET COUNT 235 10^3/uL (150-450); RED BLOOD COUNT 2.58 10^6/uL (4.35-5.55); RED CELL DISTRIBUTION WIDTH 15.8 % (11.5-14.0)
[2018-01-07 06:01] LABS: ANION GAP 10 (5-19); BLOOD UREA NITROGEN 72 mg/dL (7-20); CALCIUM 8.5 mg/dL (8.4-10.2); CARBON DIOXIDE 19 mmol/L (22-30); CHLORIDE 118 mmol/L (98-107); GLUCOSE 97 mg/dL (75-110); POTASSIUM 3.7 mmol/L (3.6-5.0); SODIUM 146.8 mmol/L (137-145)
[2018-01-07 06:18] LABS: HEMOGLOBIN 7.6 g/dL (13.5-17.0)
[2018-01-07 06:21] LABS: ABSOLUTE LYMPHOCYTES# (MANUAL) 2.5 10^3/uL (0.5-4.7); ABSOLUTE MONOCYTES # (MANUAL) 0.8 10^3/uL (0.1-1.4); ABSOLUTE NEUTROPHILS# (MANUAL) 24.6 10^3/uL (1.7-8.2); BASOPHILS % (MANUAL) 0 % (0-2); EOSINOPHILS % (MANUAL) 0 % (0-6); LYMPHOCYTES % (MANUAL) 9 % (13-45); MONOCYTES % (MANUAL) 3 % (3-13); SEGMENTED NEUTROPHILS % (MAN) 88 % (42-78); TOTAL CELLS COUNTED 100
[2018-01-07 06:23] LABS: ANISOCYTOSIS 1+; PLATELET COMMENT ADEQUATE; POIKILOCYTOSIS SLIGHT; POLYCHROMASIA SLIGHT; TARGET CELLS SLIGHT; TOXIC GRANULATION 1+
[2018-01-07] MEDS: NORMAL SALINE 1000 ML 1,000 ML IV PRN (07:21)
[2018-01-07] MEDS: FOLIC ACID 1 MG TABLET PO SCH (09:12)
[2018-01-07] MEDS: LEVETIRACETAM 500 MG TABLET PO SCH ×2 (09:12→17:20)
[2018-01-07] MEDS: CEFTRIAXONE SODIUM 1,000 MG in NORMAL SALINE 100 ML IV SCH (13:46)
[2018-01-07 13:49] LABS: HEMATOCRIT 23.1 % (37.9-51.0); MEAN CORPUSCULAR HEMOGLOBIN 29.4 pg (27.0-33.4); MEAN CORPUSCULAR HGB CONC 33.4 g/dL (32.0-36.0); MEAN CORPUSCULAR VOLUME 88 fl (80-97); PLATELET COUNT 254 10^3/uL (150-450); RED BLOOD COUNT 2.62 10^6/uL (4.35-5.55); RED CELL DISTRIBUTION WIDTH 16.4 % (11.5-14.0); WHITE BLOOD COUNT 27.6 10^3/uL (4.0-10.5)
[2018-01-07 13:54] LABS: HEMOGLOBIN 7.7 g/dL (13.5-17.0)
[2018-01-07 14:05] LABS: ALANINE AMINOTRANSFERASE 20 U/L (21-72); ALBUMIN 2.1 g/dL (3.5-5.0); ALKALINE PHOSPHATASE 192 U/L (38-126); ANION GAP 11 (5-19); ASPARTATE AMINO TRANSFERASE 18 U/L (17-59); BILIRUBIN,DIRECT 0.5 mg/dL (0.0-0.4); BILIRUBIN,TOTAL 0.6 mg/dL (0.2-1.3); BLOOD UREA NITROGEN 73 mg/dL (7-20); CALCIUM 8.5 mg/dL (8.4-10.2); CARBON DIOXIDE 20 mmol/L (22-30); CHLORIDE 116 mmol/L (98-107); GLUCOSE 110 mg/dL (75-110); POTASSIUM 3.8 mmol/L (3.6-5.0); SODIUM 146.7 mmol/L (137-145); TOTAL PROTEIN 5.8 g/dL (6.3-8.2)
[2018-01-07 14:12] LABS: ABSOLUTE LYMPHOCYTES# (MANUAL) 1.4 10^3/uL (0.5-4.7); ABSOLUTE MONOCYTES # (MANUAL) 0.6 10^3/uL (0.1-1.4); ABSOLUTE NEUTROPHILS# (MANUAL) 25.7 10^3/uL (1.7-8.2); ANISOCYTOSIS 1+; BASOPHILS % (MANUAL) 0 % (0-2); EOSINOPHILS % (MANUAL) 0 % (0-6); HYPOCHROMASIA SLIGHT; LYMPHOCYTES % (MANUAL) 5 % (13-45); MONOCYTES % (MANUAL) 2 % (3-13); NUCLEATED RED BLOOD CELLS 1 /100 WBC (0); OVALOCYTES SLIGHT; PLATELET COMMENT ADEQUATE; POIKILOCYTOSIS 1+; POLYCHROMASIA 1+; SCHISTOCYTES SLIGHT; SEGMENTED NEUTROPHILS % (MAN) 93 % (42-78); TOTAL CELLS COUNTED 100; TOXIC GRANULATION 2+
[2018-01-07] MEDS: LINEZOLID 300 ML IV SCH (14:39)
--- NOTE | 2018-01-07 16:15 | Progress Note ---
Provider Note Provider Note: ID Consult Note- I was asked by Pharmacy to review this chart because of blood cultures growing Gram positive cocci in clusters. Patient has a history of sickle cell disease. He has a decubitus ulcer with cultures growing mixed she including GNRs and Gram positive cocci in clusters. Blood cultures from January 05 and January 06 have Gram positive cocci in clusters. Patient is currently receiving linezolid and ceftriaxone. Recommendations: 1. Discontinue linezolid. 2. Begin vancomycin to cover the Staph in the blood cultures. We do not have a species or susceptibilities yet. If it is MRSA, would continue vancomycin and adjust dose for his renal insufficiency. If it is MSSA, would switch to cefazolin. If it is a coagulase-negative Staph, then would need to make sure that the organism is not a skin contaminant. Vancomycin is preferred over linezolid for Staph bacteremia because the drug is bactericidal (as compared to bacteristatic for linezolid). Also, clinical outcomes are better with vancomycin as compared with linezolid in Staph bacteremia. 3. If blood culture grows either MSSA or MRSA, patient will need repeat blood cultures to document clearance of the bacteremia. He would also need to have a TTE to rule out endocarditis. There would also need to be consideration of osteomyelitis. Maksim Melton MD Pager: [phone]
[2018-01-07] MEDS: TRAMADOL HCL 50 MG TABLET PO PRN (17:20)
--- NOTE | 2018-01-07 18:08 | PDOC PROGRESS REPORT ---
Subjective Progress Note for:: 01/07/18 Subjective:: Patient seen by the bedside clinically improving, he was started on Zyvox today empirically for MRSA, kidney function improving, once kidney function normalizes may start vancomycin. Reason For Visit: SEPSIS Physical Exam Vital Signs: Temp Pulse Resp BP Pulse Ox 97.4 F 85 20 113/67 100 01/07/18 17:07 01/07/18 17:07 01/07/18 17:07 01/07/18 17:07 01/07/18 17:07 Intake & Output 01/06/18 01/07/18 01/08/18 06:59 06:59 06:59 Intake Total 2099 2209 1704 Output Total 0 700 200 Balance 2099 1509 1504 Weight 52.5 kg General appearance: PRESENT: no acute distress Eye exam: PRESENT: PERRLA Respiratory exam: PRESENT: clear to auscultation ishan Cardiovascular exam: PRESENT: +S1, systolic murmur GI/Abdominal exam: PRESENT: soft Neurological exam: PRESENT: alert Results Laboratory Results: 01/07/18 13:25 01/07/18 13:25 01/05/18 01/07/18 01/07/18 18:42 04:55 04:55 WBC 28.0 H RBC 2.58 L Hgb 7.6 L Hct 22.7 L MCV 88 MCH 29.3 MCHC 33.3 RDW 15.8 H Plt Count 235 Seg Neutrophils % Not Reportable Lymphocytes % Not Reportable Monocytes % Not Reportable Eosinophils % Not Reportable Basophils % Not Reportable Absolute Neutrophils Not Reportable Absolute Lymphocytes Not Reportable Absolute Monocytes Not Reportable Absolute Eosinophils Not Reportable Absolute Basophils Not Reportable Sodium 146.8 H Potassium 3.7 Chloride 118 H Carbon Dioxide 19 L Anion Gap 10 BUN 72 H Creatinine 2.13 H Est GFR ( Amer) 44 L Est GFR (Non-Af Amer) 37 L Glucose 97 Calcium 8.5 Magnesium Transferrin 63 L Total Bilirubin AST ALT Alkaline Phosphatase Total Protein Albumin 01/07/18 01/07/18 01/07/18 13:25 13:25 13:25 WBC 27.6 H RBC 2.62 L Hgb 7.7 L Hct 23.1 L MCV 88 MCH 29.4 MCHC 33.4 RDW 16.4 H Plt Count 254 Seg Neutrophils % Not Reportable Lymphocytes % Not Reportable Monocytes % Not Reportable Eosinophils % Not Reportable Basophils % Not Reportable Absolute Neutrophils Not Reportable Absolute Lymphocytes Not Reportable Absolute Monocytes Not Reportable Absolute Eosinophils Not Reportable Absolute Basophils Not Reportable Sodium 146.7 H Potassium 3.8 Chloride 116 H Carbon Dioxide 20 L Anion Gap 11 BUN 73 H Creatinine 1.89 H Est GFR ( Amer) 51 L Est GFR (Non-Af Amer) 42 L Glucose 110 Calcium 8.5 Magnesium 1.5 L Transferrin Total Bilirubin 0.6 AST 18 ALT 20 L Alkaline Phosphatase 192 H Total Protein 5.8 L Albumin 2.1 L Impressions: Chest X-Ray 01/05/18 00:00 IMPRESSION: The left subclavian central venous catheter is projected over the left IJ, tip is beyond the superior margin of the image near the cranial junction. Hip X-Ray 01/05/18 00:00 IMPRESSION: Prior surgical changes with no acute abnormality appreciated. Renal Ultrasound 01/06/18 00:00 IMPRESSION: 1. Mild increased bilateral renal cortical echogenicity. This could be seen with medical renal disease. No hydronephrosis. 2. Echogenic material in the base of the urinary bladder likely represents infectious, inflammatory, or hemorrhagic debris. Correlation with urinalysis recommended. Assessment & Plan - Diagnosis (1) Sepsis Qualifiers: Sepsis type: sepsis due to unspecified organism Qualified Code(s): A41.9 - Sepsis, unspecified organism Is this a current diagnosis for this admission?: Yes (2) Acute kidney injury Is this a current diagnosis for this admission?: Yes (3) Sickle cell anemia Qualifiers: Sickle-cell associated disorders: without crisis Qualified Code(s): D57.1 - 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 Is this a current diagnosis for this admission?: Yes
[2018-01-07] MEDS ORDERED: MAGNESIUM OXIDE 400 MG TABLET PO ONE (18:30)
[2018-01-08] MEDS: NORMAL SALINE 1000 ML 1,000 ML IV PRN (00:19)
[2018-01-08] MEDS: TRAMADOL HCL 50 MG TABLET PO PRN ×2 (00:38→15:26)
[2018-01-08] MEDS: LINEZOLID 300 ML IV SCH (02:07)
[2018-01-08 06:53] LABS: ALANINE AMINOTRANSFERASE 23 U/L (21-72); ALBUMIN 2.1 g/dL (3.5-5.0); ALKALINE PHOSPHATASE 198 U/L (38-126); ANION GAP 10 (5-19); ASPARTATE AMINO TRANSFERASE 19 U/L (17-59); BILIRUBIN,DIRECT 0.5 mg/dL (0.0-0.4); BILIRUBIN,TOTAL 0.7 mg/dL (0.2-1.3); CALCIUM 8.5 mg/dL (8.4-10.2); CARBON DIOXIDE 22 mmol/L (22-30); CHLORIDE 117 mmol/L (98-107); GLUCOSE 94 mg/dL (75-110); HEMATOCRIT 22.6 % (37.9-51.0); MEAN CORPUSCULAR HEMOGLOBIN 29.8 pg (27.0-33.4); MEAN CORPUSCULAR HGB CONC 33.9 g/dL (32.0-36.0); MEAN CORPUSCULAR VOLUME 88 fl (80-97); PLATELET COUNT 243 10^3/uL (150-450); POTASSIUM 3.9 mmol/L (3.6-5.0); RED BLOOD COUNT 2.57 10^6/uL (4.35-5.55); RED CELL DISTRIBUTION WIDTH 16.6 % (11.5-14.0); SODIUM 148.8 mmol/L (137-145); TOTAL PROTEIN 5.9 g/dL (6.3-8.2)
[2018-01-08 07:08] LABS: BLOOD UREA NITROGEN 51 mg/dL (7-20)
[2018-01-08 07:57] LABS: ABSOLUTE MONOCYTES # (MANUAL) 0.3 10^3/uL (0.1-1.4); ABSOLUTE NEUTROPHILS# (MANUAL) 32.5 10^3/uL (1.7-8.2); BASOPHILS % (MANUAL) 0 % (0-2); EOSINOPHILS % (MANUAL) 0 % (0-6); LYMPHOCYTES % (MANUAL) 3 % (13-45); MONOCYTES % (MANUAL) 1 % (3-13); SEGMENTED NEUTROPHILS % (MAN) 96 % (42-78); TOTAL CELLS COUNTED 100
[2018-01-08 07:59] LABS: ANISOCYTOSIS 1+; BURR CELLS SLIGHT; HYPOCHROMASIA SLIGHT; OVALOCYTES SLIGHT; POIKILOCYTOSIS 1+; TARGET CELLS 1+; TEAR DROP CELLS SLIGHT
[2018-01-08 08:00] LABS: PLATELET COMMENT ADEQUATE
[2018-01-08 08:03] LABS: WHITE BLOOD COUNT 33.9 10^3/uL (4.0-10.5)
[2018-01-08 08:04] LABS: HEMOGLOBIN 7.7 g/dL (13.5-17.0)
[2018-01-08] MEDS: MAGNESIUM OXIDE 400 MG TABLET PO SCH (11:15)
[2018-01-08] MEDS: FOLIC ACID 1 MG TABLET PO SCH (11:15)
[2018-01-08] MEDS: LEVETIRACETAM 500 MG TABLET PO SCH ×2 (11:15→18:45)
--- NOTE | 2018-01-08 13:38 | PDOC PROGRESS REPORT ---
Subjective Progress Note for:: 01/08/18 Subjective:: Patient was seen by the bedside, he has purulent discharge from the left hip area, the kidney function is normalized, the antibiotic be changed from Zyvox to vancomycin, he will continue ceftriaxone for gram-negative coverage. He has E. coli from the wound culture from the decubiti ulcer in his buttock. Orthopedic consultation is obtained patient may need orthopedic intervention for incision and drainage of the pocket of pus in the left hip. Reason For Visit: TACHYCARDIA, SEPSIS, PAIN IN HIP Physical Exam Vital Signs: Temp Pulse Resp BP Pulse Ox 97.9 F 94 18 116/66 100 01/08/18 11:26 01/08/18 11:26 01/08/18 11:26 01/08/18 11:26 01/08/18 11:26 Intake & Output 01/07/18 01/08/18 01/09/18 06:59 06:59 07:59 Intake Total 2209 3304 474 Output Total 700 1350 300 Balance 1509 1954 174 Weight 58.2 kg General appearance: PRESENT: no acute distress Eye exam: PRESENT: PERRLA Respiratory exam: PRESENT: clear to auscultation ishan Cardiovascular exam: PRESENT: +S1, +S2 GI/Abdominal exam: PRESENT: soft Musculoskeletal exam: PRESENT: tenderness - There is tenderness, crepitus on palpation of the left hip area with purulence from the hip Neurological exam: PRESENT: alert Results Laboratory Results: 01/08/18 06:10 01/08/18 06:10 01/07/18 01/07/18 01/07/18 13:25 13:25 13:25 WBC 27.6 H RBC 2.62 L Hgb 7.7 L Hct 23.1 L MCV 88 MCH 29.4 MCHC 33.4 RDW 16.4 H Plt Count 254 Seg Neutrophils % Not Reportable Lymphocytes % Not Reportable Monocytes % Not Reportable Eosinophils % Not Reportable Basophils % Not Reportable Absolute Neutrophils Not Reportable Absolute Lymphocytes Not Reportable Absolute Monocytes Not Reportable Absolute Eosinophils Not Reportable Absolute Basophils Not Reportable Sodium 146.7 H Potassium 3.8 Chloride 116 H Carbon Dioxide 20 L Anion Gap 11 BUN 73 H Creatinine 1.89 H Est GFR ( Amer) 51 L Est GFR (Non-Af Amer) 42 L Glucose 110 Calcium 8.5 Magnesium 1.5 L Total Bilirubin 0.6 AST 18 ALT 20 L Alkaline Phosphatase 192 H C-Reactive Protein Total Protein 5.8 L Albumin 2.1 L 01/08/18 01/08/18 01/08/18 06:10 06:10 09:40 WBC 33.9 H* RBC 2.57 L Hgb 7.7 L Hct 22.6 L MCV 88 MCH 29.8 MCHC 33.9 RDW 16.6 H Plt Count 243 Seg Neutrophils % Not Reportable Lymphocytes % Not Reportable Monocytes % Not Reportable Eosinophils % Not Reportable Basophils % Not Reportable Absolute Neutrophils Not Reportable Absolute Lymphocytes Not Reportable Absolute Monocytes Not Reportable Absolute Eosinophils Not Reportable Absolute Basophils Not Reportable Sodium 148.8 H Potassium 3.9 Chloride 117 H Carbon Dioxide 22 Anion Gap 10 BUN 51 H D Creatinine 1.21 Est GFR ( Amer) > 60 Est GFR (Non-Af Amer) > 60 Glucose 94 Calcium 8.5 Magnesium Total Bilirubin 0.7 AST 19 ALT 23 Alkaline Phosphatase 198 H C-Reactive Protein 223.0 H Total Protein 5.9 L Albumin 2.1 L 01/06/18 09:41 Catheterized Urine Urine Culture - Final NO GROWTH 2 DAYS Impressions: Chest X-Ray 01/05/18 00:00 IMPRESSION: The left subclavian central venous catheter is projected over the left IJ, tip is beyond the superior margin of the image near the cranial junction. Hip X-Ray 01/05/18 00:00 IMPRESSION: Prior surgical changes with no acute abnormality appreciated. Renal Ultrasound 01/06/18 00:00 IMPRESSION: 1. Mild increased bilateral renal cortical echogenicity. This could be seen with medical renal disease. No hydronephrosis. 2. Echogenic material in the base of the urinary bladder likely represents infectious, inflammatory, or hemorrhagic debris. Correlation with urinalysis recommended. Assessment & Plan - Diagnosis (1) Sepsis Qualifiers: Sepsis type: sepsis due to unspecified organism Qualified Code(s): A41.9 - Sepsis, unspecified organism Is this a current diagnosis for this admission?: Yes (2) Acute kidney injury Is this a current diagnosis for this admission?: Yes Plan: Normalized left kidney function, increase infusion rate (3) Sickle cell anemia Qualifiers: Sickle-cell associated disorders: without crisis Qualified Code(s): D57.1 - 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 Is this a current diagnosis for this admission?: Yes (4) Abscess of left hip Is this a current diagnosis for this admission?: Yes Plan: Orthopedic consultation
[2018-01-08] MEDS: FENTANYL CITRATE INJ/PF 100 MCG/2 ML AMPUL IV PRN (13:41)
[2018-01-08] MEDS: CEFTRIAXONE SODIUM 1,000 MG in NORMAL SALINE 100 ML IV SCH (13:41)
[2018-01-08] MEDS ORDERED: VANCOMYCIN HCL 0 MG in DEXTROSE 5%-WATER 250 ML IV NR (13:45)
[2018-01-08] MEDS: POTASSI CL 40 MEQ/D5-1/2NS 1L 40 MEQ/1,000 ML RTUINJ IV PRN (15:28)
[2018-01-08] MEDS: VANCOMYCIN HCL 750 MG in DEXTROSE 5%-WATER 250 ML IV SCH (18:45)
[2018-01-08] MEDS: OXYCODONE-ACETAMINOPHEN 5-325 MG TABLET PO PRN (20:48)
[2018-01-09] MEDS: FENTANYL CITRATE INJ/PF 100 MCG/2 ML AMPUL IV PRN ×3 (01:44→23:42)
[2018-01-09] MEDS: POTASSI CL 40 MEQ/D5-1/2NS 1L 40 MEQ/1,000 ML RTUINJ IV PRN (01:44)
[2018-01-09] MEDS: VANCOMYCIN HCL 750 MG in DEXTROSE 5%-WATER 250 ML IV SCH (05:45)
[2018-01-09] MEDS: OXYCODONE-ACETAMINOPHEN 5-325 MG TABLET PO PRN ×2 (06:01→20:04)
--- NOTE | 2018-01-09 08:23 | PDOC CONSULTATION ---
Consultation Consult Date: 01/09/18 Consult reason:: Left hip wound drainage History of Present Illness Admission Date/PCP: 01/05/18 17:31 RUMA RUTH MD History of Present Illness: Patient is a 28-year-old black male with significant medical comorbidities including sickle cell disease who is well known to me from 3 previous hip surgeries most recently a conversion arthroplasty on the left at the end of November. He was seen approximately a week ago in the office and was doing well. His wound is well-healed. He was ambulating with a walker on a full weightbearing basis and was having minimal if any pain. He had put on a small amount of weight. He then returned to the office on with increasing pain in the left thigh and inability to bear weight. He subsequently was admitted to his primary care physician and orthopedics is consulted for management of the left hip issues. Of note he has blood cultures positive for staph, a sacral decubitus which is positive for E. coli and staph, and gram-positive cocci from a wound culture of the left hip. He has a leukocytosis and positive blood cultures but no hemodynamic compromise. Past Medical History Cardiac Medical History: Reports: Heart Murmur Denies: Atrial Fibrillation, Congestive Heart Failure, Coronary Artery Disease, Myocardial Infarction, Hypertension, Peripheral Vascular Disease, Pulmonary Embolism Pulmonary Medical History: Denies: Asthma, Bronchitis, Chronic Obstructive Pulmonary Disease (COPD), Pneumonia, Tuberculosis Neurological Medical History: Reports: Seizures - ON MEDS Endocrine Medical History: Denies: Hyperthyroidism, Hypothyroidism Malignancy Medical History: Denies: Leukemia, Lung Cancer GI Medical History: Reports: Gastroesophageal Reflux Disease Musculoskeltal Medical History: Denies: Arthritis, Fibromyalgia Psychiatric Medical History: Reports: Depression Denies: Bipolar Disorder, Dementia Hematology: Reports: Sickle Cell Disease, Bleeding Tendencies Denies: Anemia, Hemophilia Infectious Medical History: Denies: HIV Past Surgical History Past Surgical History: Reports: Cholecystectomy, Orthopedic Surgery - Patient underwent open reduction internal fixation of bilateral proximal fe, Other - Patient tracheostomy and PEG tube placement [facility] 3 years Denies: Appendectomy, Coronary Artery Bypass Graft, Gastric Bypass Surgery, Herniorrhaphy, Pacemaker, Tonsillectomy Social History Information Source: Patient, Relative, Dr. [place]a, [facility] Records Smoking Status: Never Smoker Frequency of Alcohol Use: None Hx Recreational Drug Use: No Drugs: None Hx Prescription Drug Abuse: No Family History Family History: Reviewed & Not Pertinent, Other Parental Family History Reviewed: No Children Family History Reviewed: No Sibling(s) Family History Reviewed.: No Medication/Allergy Home Medications: Diclofenac Sodium [Voltaren 50 mg Tablet.dr] 50 mg PO BID 01/05/18 Folic Acid [Folvite 1 mg Tablet] 1 mg PO DAILY 01/05/18 Hydroxyurea [Hydroxyurea] 500 mg PO DAILY 01/05/18 Levetiracetam [Levetiracetam] 500 mg PO BID 01/05/18 Megestrol Acetate 40 mg PO BID 01/05/18 Misoprostol [Cytotec 0.2 mg Tablet] 200 mcg PO BID 01/05/18 Tamsulosin HCl [Tamsulosin HCl] 0.4 mg PO DAILY 01/05/18 Tramadol HCl [Tramadol HCl] 50 mg PO Q6HP PRN 01/05/18 Allergies/Adverse Reactions: No Known Drug Allergies Allergy (Unknown, Verified 11/03/17 10:00) Review of Systems All systems: as per H Physical Exam Vital Signs: Temp Pulse Resp BP Pulse Ox 36.3 C 92 18 113/73 98 01/09/18 07:37 01/09/18 07:37 01/09/18 07:37 01/09/18 07:37 01/09/18 07:37 Intake & Output 01/08/18 01/09/18 01/10/18 05:59 06:59 06:59 Intake Total Output Total Balance Weight Physical Exam: The patient is a frail-appearing young black male lying in hospital bed. He denies any significant discomfort, "I am doing okay" General appearance: PRESENT: mild distress Head exam: PRESENT: normocephalic Respiratory exam: PRESENT: unlabored Cardiovascular exam: PRESENT: RRR Pulses: PRESENT: +1 pedal pulses bilateral Vascular exam: PRESENT: normal capillary refill GI/Abdominal exam: PRESENT: soft Rectal exam: PRESENT: deferred Extremities exam: PRESENT: other - Left hip wound demonstrates 2 areas of small dehiscence measuring about 1 cm each. From this there is serosanguineous drainage. Leg lengths are equal. Distal neurovascular examination is intact. Neurological exam: PRESENT: alert, awake, oriented to person, oriented to place , oriented to time, oriented to situation, CN II-XII grossly intact. ABSENT: motor sensory deficit Psychiatric exam: PRESENT: appropriate affect, normal mood. ABSENT: homicidal ideation, suicidal ideation Skin exam: PRESENT: dry, intact, warm. ABSENT: cyanosis, rash Results Laboratory Results: 01/08/18 06:10 01/08/18 06:10 01/08/18 01/08/18 06:10 09:40 WBC 33.9 H* RBC 2.57 L Hgb 7.7 L Hct 22.6 L MCV 88 MCH 29.8 MCHC 33.9 RDW 16.6 H Plt Count 243 Seg Neutrophils % Not Reportable Lymphocytes % Not Reportable Monocytes % Not Reportable Eosinophils % Not Reportable Basophils % Not Reportable Absolute Neutrophils Not Reportable Absolute Lymphocytes Not Reportable Absolute Monocytes Not Reportable Absolute Eosinophils Not Reportable Absolute Basophils Not Reportable C-Reactive Protein 223.0 H 01/05/18 20:12 Blood Blood Culture - Final Staphylococcus Aureus 01/05/18 20:20 Coccyx - Decubitis Ulcer Gram Stain - Final 01/05/18 20:20 Coccyx - Decubitis Ulcer Wound Culture - Final Escherichia Coli Staphylococcus Aureus Proteus Mirabilis 01/06/18 00:30 Blood Blood Culture - Final Staphylococcus Aureus 01/06/18 09:41 Catheterized Urine Urine Culture - Final NO GROWTH 2 DAYS Impressions: Chest X-Ray 01/05/18 00:00 IMPRESSION: The left subclavian central venous catheter is projected over the left IJ, tip is beyond the superior margin of the image near the cranial junction. Hip X-Ray 01/05/18 00:00 IMPRESSION: Prior surgical changes with no acute abnormality appreciated. Renal Ultrasound 01/06/18 00:00 IMPRESSION: 1. Mild increased bilateral renal cortical echogenicity. This could be seen with medical renal disease. No hydronephrosis. 2. Echogenic material in the base of the urinary bladder likely represents infectious, inflammatory, or hemorrhagic debris. Correlation with urinalysis recommended. Status: Imported from PACS Assessment & Plan - Diagnosis (1) Abscess of left hip Is this a current diagnosis for this admission?: Yes Plan: 28-year-old black male with a rather late left hip infection at 6 weeks that may be related to the sacral decubitus. In either case I think the patient would best served with an irrigation debridement of the hip wound, good deep cultures and 6 weeks of IV antibiotic therapy. Tentative plan this for January 10 - Time Time Spent: 50 to 70 Minutes Anticipated discharge: Other Within: Other
[2018-01-09 08:48] LABS: INTERNATIONAL RATION (INR) 1.19; PROTHROMBIN TIME 15.9 SEC (11.4-15.4)
[2018-01-09 08:49] LABS: HEMATOCRIT 21.1 % (37.9-51.0); MEAN CORPUSCULAR HEMOGLOBIN 29.2 pg (27.0-33.4); MEAN CORPUSCULAR HGB CONC 33.1 g/dL (32.0-36.0); MEAN CORPUSCULAR VOLUME 88 fl (80-97); PLATELET COUNT 304 10^3/uL (150-450); RED BLOOD COUNT 2.39 10^6/uL (4.35-5.55); RED CELL DISTRIBUTION WIDTH 16.5 % (11.5-14.0)
[2018-01-09 09:03] LABS: ANION GAP 10 (5-19); BLOOD UREA NITROGEN 20 mg/dL (7-20); CALCIUM 8.7 mg/dL (8.4-10.2); CARBON DIOXIDE 22 mmol/L (22-30); CHLORIDE 113 mmol/L (98-107); GLUCOSE 115 mg/dL (75-110); POTASSIUM 4.5 mmol/L (3.6-5.0); SODIUM 144.6 mmol/L (137-145)
[2018-01-09 09:15] LABS: WHITE BLOOD COUNT 35.3 10^3/uL (4.0-10.5)
[2018-01-09] MEDS: FOLIC ACID 1 MG TABLET PO SCH (10:33)
[2018-01-09] MEDS: MAGNESIUM OXIDE 400 MG TABLET PO SCH (10:33)
[2018-01-09] MEDS: LEVETIRACETAM 500 MG TABLET PO SCH ×2 (10:34→18:00)
--- NOTE | 2018-01-09 11:56 | PDOC PROGRESS REPORT ---
Subjective Progress Note for:: 01/09/18 Subjective:: Patient was seen by the bedside, he has polymicrobial infection including staph aureus bacteremia, E. coli and Proteus infection of the decubitus ulcer of the sacrum, these organisms are sensitive to ceftriaxone. Patient already on ceftriaxone, vancomycin be discontinued. He was seen by orthopedic, scheduled for a washout of the abscess of the left hip. He has sickle cell disease with chronic anemia, hemoglobin from today's blood work is 7, typically sickle cell disease patient tolerte low hemoglobin, but because he is scheduled for surgery tomorrow it is reasonable to transfuse with a unit of packed red blood cells. Reason For Visit: TACHYCARDIA, SEPSIS, PAIN IN HIP Physical Exam Vital Signs: Temp Pulse Resp BP Pulse Ox 97.3 F 92 18 113/73 98 01/09/18 07:37 01/09/18 07:37 01/09/18 07:37 01/09/18 07:37 01/09/18 07:37 Intake & Output 01/08/18 01/09/18 01/10/18 05:59 06:59 06:59 Intake Total Output Total Balance Weight General appearance: PRESENT: no acute distress Mouth exam: PRESENT: moist, tongue midline Neck exam: PRESENT: full ROM Respiratory exam: PRESENT: clear to auscultation ishan Cardiovascular exam: PRESENT: +S1, +S2 Vascular exam: PRESENT: normal capillary refill GI/Abdominal exam: PRESENT: normal bowel sounds, soft Rectal exam: PRESENT: deferred Neurological exam: PRESENT: alert Skin exam: PRESENT: dry, intact, warm Results Laboratory Results: 01/09/18 08:05 01/09/18 08:05 01/08/18 01/09/18 01/09/18 09:40 08:05 08:05 WBC 35.3 H* RBC 2.39 L Hgb 7.0 L Hct 21.1 L MCV 88 MCH 29.2 MCHC 33.1 RDW 16.5 H Plt Count 304 Sodium 144.6 Potassium 4.5 Chloride 113 H Carbon Dioxide 22 Anion Gap 10 BUN 20 Creatinine 0.75 Est GFR ( Amer) > 60 Est GFR (Non-Af Amer) > 60 Glucose 115 H Calcium 8.7 C-Reactive Protein 223.0 H 01/05/18 20:12 Blood Blood Culture - Final Staphylococcus Aureus 01/05/18 20:20 Coccyx - Decubitis Ulcer Gram Stain - Final 01/05/18 20:20 Coccyx - Decubitis Ulcer Wound Culture - Final Escherichia Coli Staphylococcus Aureus Proteus Mirabilis 01/06/18 00:30 Blood Blood Culture - Final Staphylococcus Aureus 01/06/18 09:41 Catheterized Urine Urine Culture - Final NO GROWTH 2 DAYS Impressions: Chest X-Ray 01/05/18 00:00 IMPRESSION: The left subclavian central venous catheter is projected over the left IJ, tip is beyond the superior margin of the image near the cranial junction. Hip X-Ray 01/05/18 00:00 IMPRESSION: Prior surgical changes with no acute abnormality appreciated. Renal Ultrasound 01/06/18 00:00 IMPRESSION: 1. Mild increased bilateral renal cortical echogenicity. This could be seen with medical renal disease. No hydronephrosis. 2. Echogenic material in the base of the urinary bladder likely represents infectious, inflammatory, or hemorrhagic debris. Correlation with urinalysis recommended. Assessment & Plan - Diagnosis (1) Sepsis Qualifiers: Sepsis type: sepsis due to unspecified organism Qualified Code(s): A41.9 - Sepsis, unspecified organism Is this a current diagnosis for this admission?: Yes Plan: Discontinue vancomycin, continue ceftriaxone (2) Acute kidney injury Is this a current diagnosis for this admission?: Yes (3) Sickle cell anemia Qualifiers: Sickle-cell associated disorders: without crisis Qualified Code(s): D57.1 - 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 Is this a current diagnosis for this admission?: Yes Plan: transfuse PRBC (4) Abscess of left hip Is this a current diagnosis for this admission?: Yes (5) Sacral decubitus ulcer Qualifiers: Pressure ulcer stage: stage 2 Qualified Code(s): L89.152 - Pressure ulcer of sacral region, stage 2 Is this a current diagnosis for this admission?: Yes
[2018-01-09] MEDS ORDERED: NORMAL SALINE 250 ML IV PRN ×2 (11:58)
[2018-01-09] MEDS: CEFTRIAXONE SODIUM 1,000 MG in NORMAL SALINE 100 ML IV SCH (13:40)
[2018-01-09 20:48] LABS: HEMATOCRIT 25.7 % (37.9-51.0); HEMOGLOBIN 8.6 g/dL (13.5-17.0); MEAN CORPUSCULAR HEMOGLOBIN 29.4 pg (27.0-33.4); MEAN CORPUSCULAR HGB CONC 33.5 g/dL (32.0-36.0); MEAN CORPUSCULAR VOLUME 88 fl (80-97); PLATELET COUNT 318 10^3/uL (150-450); RED BLOOD COUNT 2.93 10^6/uL (4.35-5.55); RED CELL DISTRIBUTION WIDTH 16.2 % (11.5-14.0)
[2018-01-09] MEDS: TRAMADOL HCL 50 MG TABLET PO PRN (22:26)
[2018-01-10] MEDS: OXYCODONE-ACETAMINOPHEN 5-325 MG TABLET PO PRN ×2 (02:08→15:14)
[2018-01-10] MEDS: POTASSI CL 40 MEQ/D5-1/2NS 1L 40 MEQ/1,000 ML RTUINJ IV PRN (03:55)
[2018-01-10] MEDS: FENTANYL CITRATE INJ/PF 100 MCG/2 ML AMPUL IV PRN ×2 (04:06→19:54)
[2018-01-10] MEDS ORDERED: TRANEXAMIC ACID INJ/PF 1,000 MG/10 ML SDV IV PRN (05:00)
[2018-01-10 05:37] LABS: HEMATOCRIT 24.2 % (37.9-51.0); MEAN CORPUSCULAR HEMOGLOBIN 28.8 pg (27.0-33.4); MEAN CORPUSCULAR HGB CONC 33.2 g/dL (32.0-36.0); MEAN CORPUSCULAR VOLUME 87 fl (80-97); PLATELET COUNT 330 10^3/uL (150-450); RED BLOOD COUNT 2.79 10^6/uL (4.35-5.55); RED CELL DISTRIBUTION WIDTH 16.8 % (11.5-14.0)
[2018-01-10 05:59] LABS: ANION GAP 8 (5-19); BLOOD UREA NITROGEN 16 mg/dL (7-20); CALCIUM 8.3 mg/dL (8.4-10.2); CARBON DIOXIDE 24 mmol/L (22-30); CHLORIDE 109 mmol/L (98-107); GLUCOSE 110 mg/dL (75-110); POTASSIUM 5.3 mmol/L (3.6-5.0); SODIUM 140.6 mmol/L (137-145)
[2018-01-10 06:13] LABS: WHITE BLOOD COUNT 34.4 10^3/uL (4.0-10.5)
[2018-01-10] MEDS ORDERED: DEXTROSE 5%-NORMAL SALINE 1,000 ML IV PRN (08:03)
[2018-01-10] MEDS ORDERED: PROMETHAZINE HCL INJ 25 MG/1 ML VIAL IV PRN ×4 (09:35→12:05)
[2018-01-10] MEDS ORDERED: FENTANYL CITRATE INJ/PF 100 MCG/2 ML AMPUL IV PRN ×6 (09:35→12:05)
[2018-01-10] MEDS ORDERED: DIPHENHYDRAMINE HCL 50 MG/ML VIAL IV PRN ×2 (09:35→12:05)
[2018-01-10] MEDS ORDERED: RINGERS SOLUTION,LACTATED 1,000 ML IV PRN (09:37)
[2018-01-10] MEDS: MAGNESIUM OXIDE 400 MG TABLET PO SCH (09:44)
[2018-01-10] MEDS: LEVETIRACETAM 500 MG TABLET PO SCH ×2 (09:44→18:25)
[2018-01-10] MEDS: FOLIC ACID 1 MG TABLET PO SCH (09:44)
[2018-01-10] MEDS ORDERED: THROMBIN (BOVINE) TOPICAL 20000 UNIT VIAL ONE (09:52)
[2018-01-10] MEDS ORDERED: THROMBIN (BOVINE) 5000 UNIT EPITAXIS KIT ONE (09:52)
[2018-01-10] MEDS ORDERED: BACITRACIN INJ 50,000 UNIT VIAL ONE (09:52)
[2018-01-10] MEDS ORDERED: POLYMYXIN B SULFATE INJ 500000 UNIT VIAL ONE (10:07)
[2018-01-10] MEDS ORDERED: ONDANSETRON HCL INJ/PF 4 MG/2 ML SDV IV PRN (10:45)
[2018-01-10] MEDS ORDERED: VANCOMYCIN HCL INJ 1000 MG VIAL ONE (10:50)
[2018-01-10] MEDS ORDERED: BUPIVACAINE INJ/PF LIPOSOME/PF 266 MG/20 ML SDV ONE (11:02)
--- NOTE | 2018-01-10 11:11 | Operative Report ---
Operative Report DATE OF SURGERY: 01/10/18 PREOPERATIVE DIAGNOSIS: Left hip periprosthetic infection OPERATION: Revision left hip arthroplasty, I&D of wound, implantation of OsteoSet beads SURGEON: YON FRASER ANESTHESIA: GA TISSUE REMOVED OR ALTERED: Cultures to microbiology. Implants to CSS ESTIMATED BLOOD LOSS: 100 PROCEDURE: With the patient in a right lateral decubitus position after table left lower extremity hunker prepped and draped in sterile fashion. Using a previous surgical approach the posterior approach the hip was taken. Deep wound cultures are obtained. The hip was then dislocated and femoral head disimpacted. The acetabular liner was removed using an osteotome. Wound is then irrigated with pulse lavage using 3 L normal sunken bacitracin followed by 3 L normal saline. The wounds is then meticulously debrided. A new Sullivan size E liner is impacted into the acetabular shell. A 36 mm standard chrome cobalt head is impacted onto the trunnion. The hip is reduced. OsteoSet pellets made with vancomycin and then introduced in the deep wound space. The iliotibial band is then closed using interrupted PDS suture followed by subcutaneous tissue and skin. A sterile compressive dressing was applied and the patient returned to PACU in satisfactory condition.
[2018-01-10] MEDS ORDERED: MEPERIDINE HCL/PF INJ 25 MG/1 ML DISP.SYRIN IV PRN (12:05)
[2018-01-10] MEDS ORDERED: MORPHINE SULFATE 10 MG/ML INJ IV PRN (12:05)
[2018-01-10] MEDS: FENTANYL CITRATE INJ/PF 100 MCG/2 ML AMPUL ONE ×2 (12:05→12:10)
[2018-01-10] MEDS ORDERED: OXYCODONE-ACETAMINOPHEN 5-325 MG TABLET PO PRN ×2 (12:05)
[2018-01-10] MEDS ORDERED: TRANEXAMIC ACID INJ/PF 1,000 MG/10 ML SDV IV ONE ×2 (13:30→15:30)
[2018-01-10] MEDS: CEFTRIAXONE SODIUM 1,000 MG in NORMAL SALINE 100 ML IV SCH (14:51)
[2018-01-10 15:01] LABS: PATH REVIEW PATHOLOGIST REVIEWED
[2018-01-10] MEDS ORDERED: LIDOCAINE 2% INJ-PF (20 MG/ML) 2 ML AMPUL ONE (15:02)
[2018-01-10] MEDS ORDERED: SUCCINYLCHOLINE CHLORIDE INJ 200 MG/10 ML VIAL ONE (15:02)
[2018-01-10] MEDS ORDERED: PHENYLEPHRINE HCL INJ/PF 10 MG/1 ML SDV ONE (15:02)
[2018-01-10] MEDS ORDERED: DEXAMETHASONE SOD PHOSPHATE INJ 4 MG/1 ML VIAL ONE (15:02)
[2018-01-10] MEDS ORDERED: ONDANSETRON HCL INJ/PF 4 MG/2 ML SDV ONE (15:02)
[2018-01-10] MEDS: TRAMADOL HCL 50 MG TABLET PO PRN (16:48)
[2018-01-10] MEDS: RIFAMPIN 300 MG CAPSULE PO SCH (18:24)
[2018-01-10] MEDS: DEXTROSE 5%-NORMAL SALINE 1,000 ML IV PRN (19:07)
--- NOTE | 2018-01-10 20:52 | PDOC PROGRESS REPORT ---
Subjective Progress Note for:: 01/10/18 Subjective:: Patient was seen by the bedside, he underwent orthopedic procedure, revision of left hip arthroplasty I& D ,implantation of OsteoSet beads.Patient said he feels better today compared to last few days Reason For Visit: POSSIBLE SEPSIS,ANEMIA,TACHYCARDIA,HIP PAIN Physical Exam Vital Signs: Temp Pulse Resp BP Pulse Ox 98.3 F 93 17 111/76 97 01/10/18 16:06 01/10/18 16:06 01/10/18 16:06 01/10/18 16:06 01/10/18 16:06 Intake & Output 01/09/18 01/10/18 01/11/18 06:59 06:59 06:59 Intake Total 4115 01623 Output Total 3750 8750 Balance 365 1600 Weight General appearance: PRESENT: no acute distress, well-developed, well-nourished Head exam: PRESENT: atraumatic, normocephalic Eye exam: PRESENT: conjunctiva pink, EOMI, PERRLA Ear exam: PRESENT: normal external ear exam Mouth exam: PRESENT: moist, tongue midline Neck exam: PRESENT: full ROM Respiratory exam: PRESENT: clear to auscultation ishan Cardiovascular exam: PRESENT: RRR, +S1, +S2 Pulses: PRESENT: normal dorsalis pedis pul, +2 pedal pulses bilateral Vascular exam: PRESENT: normal capillary refill GI/Abdominal exam: PRESENT: normal bowel sounds, soft Rectal exam: PRESENT: deferred Neurological exam: PRESENT: alert Psychiatric exam: PRESENT: appropriate affect, normal mood Skin exam: PRESENT: dry, intact, warm Results Laboratory Results: 01/10/18 05:10 01/10/18 05:10 01/09/18 01/10/18 01/10/18 20:32 05:10 05:10 WBC 34.0 H* 34.4 H* RBC 2.93 L 2.79 L Hgb 8.6 L 8.0 L Hct 25.7 L 24.2 L MCV 88 87 MCH 29.4 28.8 MCHC 33.5 33.2 RDW 16.2 H 16.8 H Plt Count 318 330 Sodium 140.6 Potassium 5.3 H Chloride 109 H Carbon Dioxide 24 Anion Gap 8 BUN 16 Creatinine 0.63 Est GFR ( Amer) > 60 Est GFR (Non-Af Amer) > 60 Glucose 110 Calcium 8.3 L 01/08/18 09:40 Hip - Decubitis Ulcer Left Hip Gram Stain - Final 01/08/18 09:40 Hip - Decubitis Ulcer Left Hip Wound Culture - Final Staphylococcus Aureus Impressions: Chest X-Ray 01/05/18 00:00 IMPRESSION: The left subclavian central venous catheter is projected over the left IJ, tip is beyond the superior margin of the image near the cranial junction. Hip X-Ray 01/05/18 00:00 IMPRESSION: Prior surgical changes with no acute abnormality appreciated. Renal Ultrasound 01/06/18 00:00 IMPRESSION: 1. Mild increased bilateral renal cortical echogenicity. This could be seen with medical renal disease. No hydronephrosis. 2. Echogenic material in the base of the urinary bladder likely represents infectious, inflammatory, or hemorrhagic debris. Correlation with urinalysis recommended. Assessment & Plan - Diagnosis (1) Sepsis Qualifiers: Sepsis type: sepsis due to unspecified organism Qualified Code(s): A41.9 - Sepsis, unspecified organism Is this a current diagnosis for this admission?: Yes (2) Acute kidney injury Is this a current diagnosis for this admission?: Yes (3) Sickle cell anemia Qualifiers: Sickle-cell associated disorders: without crisis Qualified Code(s): D57.1 - 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 Is this a current diagnosis for this admission?: Yes (4) Abscess of left hip Is this a current diagnosis for this admission?: Yes (5) Sacral decubitus ulcer Qualifiers: Pressure ulcer stage: stage 2 Qualified Code(s): L89.152 - Pressure ulcer of sacral region, stage 2 Is this a current diagnosis for this admission?: Yes (6) Staphylococcus aureus septicemia Is this a current diagnosis for this admission?: Yes Plan: Patient with MSSA, continue ceftriaxone
[2018-01-11] MEDS: FENTANYL CITRATE INJ/PF 100 MCG/2 ML AMPUL IV PRN ×5 (00:06→23:26)
[2018-01-11] MEDS: DEXTROSE 5%-NORMAL SALINE 1,000 ML IV PRN ×2 (05:35→22:46)
[2018-01-11] MEDS: RIFAMPIN 300 MG CAPSULE PO SCH ×2 (05:39→16:48)
[2018-01-11 05:43] LABS: HEMATOCRIT 21.7 % (37.9-51.0); MEAN CORPUSCULAR HEMOGLOBIN 28.7 pg (27.0-33.4); MEAN CORPUSCULAR VOLUME 87 fl (80-97); PLATELET COUNT 338 10^3/uL (150-450); RED BLOOD COUNT 2.49 10^6/uL (4.35-5.55); RED CELL DISTRIBUTION WIDTH 16.5 % (11.5-14.0)
[2018-01-11 05:51] LABS: ANION GAP 8 (5-19); BLOOD UREA NITROGEN 19 mg/dL (7-20); CALCIUM 7.9 mg/dL (8.4-10.2); CARBON DIOXIDE 25 mmol/L (22-30); CHLORIDE 109 mmol/L (98-107); GLUCOSE 126 mg/dL (75-110); POTASSIUM 4.6 mmol/L (3.6-5.0); SODIUM 141.8 mmol/L (137-145); WHITE BLOOD COUNT 33.3 10^3/uL (4.0-10.5)
[2018-01-11 05:52] LABS: HEMOGLOBIN 7.1 g/dL (13.5-17.0)
--- NOTE | 2018-01-11 06:39 | PDOC PROGRESS REPORT ---
Subjective Progress Note for:: 01/11/18 Reason For Visit: POSSIBLE SEPSIS,ANEMIA,TACHYCARDIA,HIP PAIN 28-year-old black male status post I&D of left hip yesterday for periprosthetic infection from a pansensitive staph Physical Exam Vital Signs: Temp Pulse Resp BP Pulse Ox 36.4 C 87 20 109/70 100 01/11/18 03:13 01/11/18 03:13 01/11/18 03:13 01/11/18 03:13 01/11/18 03:13 Intake & Output 01/09/18 01/10/18 01/11/18 06:59 06:59 06:59 Intake Total 4115 31606 Output Total 3750 8750 Balance 365 2322 Weight 58.6 kg General appearance: PRESENT: mild distress Head exam: PRESENT: normocephalic Respiratory exam: PRESENT: unlabored Cardiovascular exam: PRESENT: RRR Pulses: PRESENT: +1 pedal pulses bilateral Vascular exam: PRESENT: normal capillary refill GI/Abdominal exam: PRESENT: soft Rectal exam: PRESENT: deferred Extremities exam: PRESENT: other - Left hip dressing with minor drainage. Leg lengths are equal. Distal neurovascular examination is intact. Results Laboratory Results: 01/11/18 04:50 01/11/18 04:50 01/11/18 01/11/18 04:50 04:50 WBC 33.3 H* RBC 2.49 L Hgb 7.1 L Hct 21.7 L MCV 87 MCH 28.7 MCHC 33.0 RDW 16.5 H Plt Count 338 Sodium 141.8 Potassium 4.6 Chloride 109 H Carbon Dioxide 25 Anion Gap 8 BUN 19 Creatinine 0.62 Est GFR ( Amer) > 60 Est GFR (Non-Af Amer) > 60 Glucose 126 H Calcium 7.9 L 01/08/18 09:40 Hip - Decubitis Ulcer Left Hip Gram Stain - Final 01/08/18 09:40 Hip - Decubitis Ulcer Left Hip Wound Culture - Final Staphylococcus Aureus Impressions: Chest X-Ray 01/05/18 00:00 IMPRESSION: The left subclavian central venous catheter is projected over the left IJ, tip is beyond the superior margin of the image near the cranial junction. Hip X-Ray 01/05/18 00:00 IMPRESSION: Prior surgical changes with no acute abnormality appreciated. Renal Ultrasound 03/08/18 00:00 IMPRESSION: 1. Mild increased bilateral renal cortical echogenicity. This could be seen with medical renal disease. No hydronephrosis. 2. Echogenic material in the base of the urinary bladder likely represents infectious, inflammatory, or hemorrhagic debris. Correlation with urinalysis recommended. Status: Imported from PACS Assessment & Plan - Diagnosis (1) Abscess of left hip Is this a current diagnosis for this admission?: Yes Plan: Patient status post I&D of left hip. Tentative plan will be for physical therapy and weightbearing as tolerated ambulation today. Anticipate 6 weeks of IV antibiotic therapy at this point presumably Rocephin. Rifampin can be used for synergy. - Time Time Spent with patient: 15-24 minutes Anticipated discharge: SNF Within: Other
[2018-01-11] MEDS: OXYCODONE-ACETAMINOPHEN 5-325 MG TABLET PO PRN ×3 (08:11→20:23)
[2018-01-11] MEDS: ASPIRIN 81 MG TABLET, ENT COATED PO SCH (09:20)
[2018-01-11] MEDS: TRAMADOL HCL 50 MG TABLET PO PRN ×2 (09:20→16:47)
[2018-01-11] MEDS: MAGNESIUM OXIDE 400 MG TABLET PO SCH (09:20)
[2018-01-11] MEDS: FOLIC ACID 1 MG TABLET PO SCH (09:20)
[2018-01-11] MEDS: LEVETIRACETAM 500 MG TABLET PO SCH ×2 (09:21→16:48)
[2018-01-11] MEDS: CEFTRIAXONE SODIUM 1,000 MG in NORMAL SALINE 100 ML IV SCH (14:19)
--- NOTE | 2018-01-11 21:23 | PDOC PROGRESS REPORT ---
Subjective Progress Note for:: 01/11/18 Subjective:: He was seen by the bedside, patient on IV antibiotic, he is responding to antibiotic, Reason For Visit: POSSIBLE SEPSIS,ANEMIA,TACHYCARDIA,HIP PAIN Physical Exam Vital Signs: Temp Pulse Resp BP Pulse Ox 97.8 F 101 H 18 117/69 99 01/11/18 16:58 01/11/18 18:49 01/11/18 16:58 01/11/18 16:58 01/11/18 16:58 Intake & Output 01/10/18 01/11/18 01/12/18 06:59 06:59 06:59 Intake Total 4115 39374 1434 Output Total 3750 8750 Balance 365 2322 1434 Weight 58.6 kg General appearance: PRESENT: no acute distress Eye exam: PRESENT: PERRLA Mouth exam: PRESENT: moist, tongue midline Cardiovascular exam: PRESENT: RRR, +S1, +S2 Vascular exam: PRESENT: normal capillary refill GI/Abdominal exam: PRESENT: normal bowel sounds, soft Rectal exam: PRESENT: deferred Neurological exam: PRESENT: alert Skin exam: PRESENT: dry, intact, warm Results Laboratory Results: 01/11/18 04:50 01/11/18 04:50 01/11/18 01/11/18 04:50 04:50 WBC 33.3 H* RBC 2.49 L Hgb 7.1 L Hct 21.7 L MCV 87 MCH 28.7 MCHC 33.0 RDW 16.5 H Plt Count 338 Sodium 141.8 Potassium 4.6 Chloride 109 H Carbon Dioxide 25 Anion Gap 8 BUN 19 Creatinine 0.62 Est GFR ( Amer) > 60 Est GFR (Non-Af Amer) > 60 Glucose 126 H Calcium 7.9 L Impressions: Chest X-Ray 01/05/18 00:00 IMPRESSION: The left subclavian central venous catheter is projected over the left IJ, tip is beyond the superior margin of the image near the cranial junction. Hip X-Ray 01/05/18 00:00 IMPRESSION: Prior surgical changes with no acute abnormality appreciated. Renal Ultrasound 01/06/18 00:00 IMPRESSION: 1. Mild increased bilateral renal cortical echogenicity. This could be seen with medical renal disease. No hydronephrosis. 2. Echogenic material in the base of the urinary bladder likely represents infectious, inflammatory, or hemorrhagic debris. Correlation with urinalysis recommended. Assessment & Plan - Diagnosis (1) Sepsis Qualifiers: Sepsis type: sepsis due to unspecified organism Qualified Code(s): A41.9 - Sepsis, unspecified organism Is this a current diagnosis for this admission?: Yes (2) Acute kidney injury Is this a current diagnosis for this admission?: Yes (3) Sickle cell anemia Qualifiers: Sickle-cell associated disorders: without crisis Qualified Code(s): D57.1 - 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 Is this a current diagnosis for this admission?: Yes (4) Abscess of left hip Is this a current diagnosis for this admission?: Yes (5) Sacral decubitus ulcer Qualifiers: Pressure ulcer stage: stage 2 Qualified Code(s): L89.152 - Pressure ulcer of sacral region, stage 2 Is this a current diagnosis for this admission?: Yes (6) Staphylococcus aureus septicemia Is this a current diagnosis for this admission?: Yes - Plan Summary Plan Summary: Continue treatment
[2018-01-12] MEDS: TRAMADOL HCL 50 MG TABLET PO PRN ×2 (01:36→15:30)
[2018-01-12] MEDS: RIFAMPIN 300 MG CAPSULE PO SCH (05:15)
[2018-01-12 05:44] LABS: ANION GAP 9 (5-19); BLOOD UREA NITROGEN 15 mg/dL (7-20); CALCIUM 8.5 mg/dL (8.4-10.2); CARBON DIOXIDE 27 mmol/L (22-30); CHLORIDE 106 mmol/L (98-107); GLUCOSE 93 mg/dL (75-110); POTASSIUM 4.9 mmol/L (3.6-5.0); SODIUM 141.8 mmol/L (137-145)
[2018-01-12 05:58] LABS: HEMATOCRIT 22.4 % (37.9-51.0); MEAN CORPUSCULAR HEMOGLOBIN 30.2 pg (27.0-33.4); MEAN CORPUSCULAR HGB CONC 34.3 g/dL (32.0-36.0); MEAN CORPUSCULAR VOLUME 88 fl (80-97); PLATELET COUNT 428 10^3/uL (150-450); RED BLOOD COUNT 2.55 10^6/uL (4.35-5.55); RED CELL DISTRIBUTION WIDTH 16.7 % (11.5-14.0)
[2018-01-12 06:04] LABS: HEMOGLOBIN 7.7 g/dL (13.5-17.0)
[2018-01-12] MEDS: OXYCODONE-ACETAMINOPHEN 5-325 MG TABLET PO PRN ×3 (06:40→21:01)
[2018-01-12] MEDS ORDERED: NORMAL SALINE 250 ML IV PRN (07:01)
[2018-01-12] MEDS: FOLIC ACID 1 MG TABLET PO SCH (09:42)
[2018-01-12] MEDS: MAGNESIUM OXIDE 400 MG TABLET PO SCH (09:42)
[2018-01-12] MEDS: LEVETIRACETAM 500 MG TABLET PO SCH ×2 (09:42→17:44)
[2018-01-12] MEDS: ASPIRIN 81 MG TABLET, ENT COATED PO SCH (09:42)
[2018-01-12] MEDS: CEFTRIAXONE SODIUM 1,000 MG in NORMAL SALINE 100 ML IV SCH (13:45)
--- NOTE | 2018-01-12 16:33 | PDOC PROGRESS REPORT ---
Subjective Progress Note for:: 01/12/18 Subjective:: He was seen by the bedside, patient on IV antibiotic, he is responding to antibiotic, Reason For Visit: POSSIBLE SEPSIS,ANEMIA,TACHYCARDIA,HIP PAIN Physical Exam Vital Signs: Temp Pulse Resp BP Pulse Ox 99.4 F 112 H 16 116/66 100 01/12/18 16:07 01/12/18 16:07 01/12/18 16:07 01/12/18 16:07 01/12/18 16:07 Intake & Output 01/11/18 01/12/18 01/13/18 06:59 06:59 06:59 Intake Total 65702 2375 300 Output Total 8750 Balance 2322 2375 300 Weight 58.6 kg 58.3 kg General appearance: PRESENT: no acute distress Head exam: PRESENT: atraumatic, normocephalic Eye exam: PRESENT: conjunctiva pink, EOMI, PERRLA Ear exam: PRESENT: normal external ear exam Mouth exam: PRESENT: moist, tongue midline Neck exam: PRESENT: full ROM Respiratory exam: PRESENT: clear to auscultation ishan Cardiovascular exam: PRESENT: RRR, +S1, +S2 Vascular exam: PRESENT: normal capillary refill GI/Abdominal exam: PRESENT: normal bowel sounds, soft Rectal exam: PRESENT: deferred Neurological exam: PRESENT: alert Psychiatric exam: PRESENT: appropriate affect, normal mood Skin exam: PRESENT: dry, intact, warm Results Laboratory Results: 01/12/18 04:18 01/12/18 04:18 01/12/18 01/12/18 01/12/18 04:18 04:18 08:28 WBC 23.0 H RBC 2.55 L Hgb 7.7 L Hct 22.4 L MCV 88 MCH 30.2 MCHC 34.3 RDW 16.7 H Plt Count 428 Sodium 141.8 Potassium 4.9 Chloride 106 Carbon Dioxide 27 Anion Gap 9 BUN 15 Creatinine 0.60 Est GFR ( Amer) > 60 Est GFR (Non-Af Amer) > 60 Glucose 93 Calcium 8.5 Blood Type A POSITIVE Antibody Screen NEGATIVE 01/10/18 10:45 Hip - Superficial Gram Stain - Final 01/10/18 10:45 Hip - Superficial Wound Culture - Final Staphylococcus Aureus No Anaerobic Organisms 01/10/18 10:46 Hip - Deep Wound Gram Stain - Final 01/10/18 10:46 Hip - Deep Wound Wound Culture - Final Staphylococcus Aureus No Anaerobic Organisms Impressions: Chest X-Ray 01/05/18 00:00 IMPRESSION: The left subclavian central venous catheter is projected over the left IJ, tip is beyond the superior margin of the image near the cranial junction. Hip X-Ray 01/05/18 00:00 IMPRESSION: Prior surgical changes with no acute abnormality appreciated. Renal Ultrasound 01/06/18 00:00 IMPRESSION: 1. Mild increased bilateral renal cortical echogenicity. This could be seen with medical renal disease. No hydronephrosis. 2. Echogenic material in the base of the urinary bladder likely represents infectious, inflammatory, or hemorrhagic debris. Correlation with urinalysis recommended. Assessment & Plan - Diagnosis (1) Sepsis Qualifiers: Sepsis type: sepsis due to unspecified organism Qualified Code(s): A41.9 - Sepsis, unspecified organism Is this a current diagnosis for this admission?: Yes (2) Acute kidney injury Is this a current diagnosis for this admission?: Yes (3) Sickle cell anemia Qualifiers: Sickle-cell associated disorders: without crisis Qualified Code(s): D57.1 - 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 Is this a current diagnosis for this admission?: Yes (4) Abscess of left hip Is this a current diagnosis for this admission?: Yes (5) Sacral decubitus ulcer Qualifiers: Pressure ulcer stage: stage 2 Qualified Code(s): L89.152 - Pressure ulcer of sacral region, stage 2 Is this a current diagnosis for this admission?: Yes (6) Staphylococcus aureus septicemia Is this a current diagnosis for this admission?: Yes Plan: The use of rifampin for synergy in staph aureus treatment is obsolete in clinical studies with respectfully discontinue it
[2018-01-12 20:22] LABS: HEMATOCRIT 28.7 % (37.9-51.0); HEMOGLOBIN 9.7 g/dL (13.5-17.0); MEAN CORPUSCULAR HEMOGLOBIN 29.5 pg (27.0-33.4); MEAN CORPUSCULAR HGB CONC 33.7 g/dL (32.0-36.0); MEAN CORPUSCULAR VOLUME 88 fl (80-97); PLATELET COUNT 445 10^3/uL (150-450); RED BLOOD COUNT 3.28 10^6/uL (4.35-5.55); RED CELL DISTRIBUTION WIDTH 15.1 % (11.5-14.0); WHITE BLOOD COUNT 21.5 10^3/uL (4.0-10.5)
[2018-01-13] MEDS: TRAMADOL HCL 50 MG TABLET PO PRN (00:06)
[2018-01-13] MEDS: OXYCODONE-ACETAMINOPHEN 5-325 MG TABLET PO PRN ×4 (02:57→23:06)
[2018-01-13 05:34] LABS: HEMATOCRIT 28.3 % (37.9-51.0); HEMOGLOBIN 9.2 g/dL (13.5-17.0); MEAN CORPUSCULAR HEMOGLOBIN 29.1 pg (27.0-33.4); MEAN CORPUSCULAR HGB CONC 32.6 g/dL (32.0-36.0); MEAN CORPUSCULAR VOLUME 89 fl (80-97); PLATELET COUNT 484 10^3/uL (150-450); RED BLOOD COUNT 3.17 10^6/uL (4.35-5.55); RED CELL DISTRIBUTION WIDTH 15.1 % (11.5-14.0); WHITE BLOOD COUNT 21.8 10^3/uL (4.0-10.5)
[2018-01-13 05:46] LABS: ANION GAP 10 (5-19); BLOOD UREA NITROGEN 13 mg/dL (7-20); CALCIUM 8.9 mg/dL (8.4-10.2); CARBON DIOXIDE 27 mmol/L (22-30); CHLORIDE 100 mmol/L (98-107); GLUCOSE 109 mg/dL (75-110); POTASSIUM 4.8 mmol/L (3.6-5.0); SODIUM 136.8 mmol/L (137-145)
--- NOTE | 2018-01-13 06:44 | PDOC PROGRESS REPORT ---
Subjective Progress Note for:: 01/13/18 Reason For Visit: POSSIBLE SEPSIS,ANEMIA,TACHYCARDIA,HIP PAIN 28-year-old black male with sickle cell disease now postop day 3 status post I& D of a left periprosthetic hip infection with a pansensitive staph Physical Exam Vital Signs: Temp Pulse Resp BP Pulse Ox 36.7 C 93 16 130/75 H 99 01/13/18 03:32 01/13/18 03:32 01/13/18 03:32 01/13/18 03:32 01/13/18 03:32 Intake & Output 01/11/18 01/12/18 01/13/18 06:59 06:59 06:59 Intake Total 23777 2375 3449 Output Total 8750 Balance 2322 2375 3449 Weight 58.6 kg 58.3 kg General appearance: PRESENT: no acute distress Head exam: PRESENT: normocephalic Respiratory exam: PRESENT: unlabored Cardiovascular exam: PRESENT: tachycardia Pulses: PRESENT: +1 pedal pulses bilateral Vascular exam: PRESENT: normal capillary refill Rectal exam: PRESENT: deferred Extremities exam: PRESENT: other - Left hip dressing with serosanguineous drainage. This is to be changed today. Leg lengths are equal. Distal neurovascular examination is intact. Neurological exam: PRESENT: alert, altered, awake, oriented to person, oriented to place, oriented to time, oriented to situation Results Laboratory Results: 01/13/18 04:51 01/13/18 04:51 01/12/18 01/12/18 01/13/18 08:28 19:50 04:51 WBC 21.5 H 21.8 H RBC 3.28 L 3.17 L Hgb 9.7 L 9.2 L Hct 28.7 L 28.3 L MCV 88 89 MCH 29.5 29.1 MCHC 33.7 32.6 RDW 15.1 H 15.1 H Plt Count 445 484 H Sodium Potassium Chloride Carbon Dioxide Anion Gap BUN Creatinine Est GFR ( Amer) Est GFR (Non-Af Amer) Glucose Calcium Blood Type A POSITIVE Antibody Screen NEGATIVE 01/13/18 04:51 WBC RBC Hgb Hct MCV MCH MCHC RDW Plt Count Sodium 136.8 L Potassium 4.8 Chloride 100 Carbon Dioxide 27 Anion Gap 10 BUN 13 Creatinine 0.50 L Est GFR ( Amer) > 60 Est GFR (Non-Af Amer) > 60 Glucose 109 Calcium 8.9 Blood Type Antibody Screen 01/10/18 10:45 Hip - Superficial Gram Stain - Final 01/10/18 10:45 Hip - Superficial Wound Culture - Final Staphylococcus Aureus No Anaerobic Organisms 01/10/18 10:46 Hip - Deep Wound Gram Stain - Final 01/10/18 10:46 Hip - Deep Wound Wound Culture - Final Staphylococcus Aureus No Anaerobic Organisms Impressions: Chest X-Ray 01/05/18 00:00 IMPRESSION: The left subclavian central venous catheter is projected over the left IJ, tip is beyond the superior margin of the image near the cranial junction. Hip X-Ray 01/05/18 00:00 IMPRESSION: Prior surgical changes with no acute abnormality appreciated. Renal Ultrasound 01/06/18 00:00 IMPRESSION: 1. Mild increased bilateral renal cortical echogenicity. This could be seen with medical renal disease. No hydronephrosis. 2. Echogenic material in the base of the urinary bladder likely represents infectious, inflammatory, or hemorrhagic debris. Correlation with urinalysis recommended. Status: Imported from PACS Assessment & Plan - Diagnosis (1) Abscess of left hip Is this a current diagnosis for this admission?: Yes Plan: 28-year-old black male status post I&D of left hip infection making slow progress with physical therapy. Patient currently on Rocephin and rifampin treat a pansensitive staph infection. Plans are for transfer to [facility] for antibiotic administration when a bed is available. Hematocrit remains at 28% and white count has decreased to 21,000 - Time Time Spent with patient: 15-24 minutes Anticipated discharge: SNF Within: when bed available
[2018-01-13] MEDS: FOLIC ACID 1 MG TABLET PO SCH (09:24)
[2018-01-13] MEDS: LEVETIRACETAM 500 MG TABLET PO SCH ×2 (09:24→17:07)
[2018-01-13] MEDS: ASPIRIN 81 MG TABLET, ENT COATED PO SCH (09:24)
[2018-01-13] MEDS: MAGNESIUM OXIDE 400 MG TABLET PO SCH (09:24)
[2018-01-13] MEDS: DEXTROSE 5%-NORMAL SALINE 1,000 ML IV PRN ×2 (09:32→23:07)
[2018-01-13] MEDS: FENTANYL CITRATE INJ/PF 100 MCG/2 ML AMPUL IV PRN ×2 (13:02→19:36)
--- NOTE | 2018-01-13 20:07 | PDOC PROGRESS REPORT ---
Subjective Progress Note for:: 01/13/18 Subjective:: Patient is seen by the bedside, he continues IV ceftriaxone Reason For Visit: POSSIBLE SEPSIS,ANEMIA,TACHYCARDIA,HIP PAIN Physical Exam Vital Signs: Temp Pulse Resp BP Pulse Ox 99.2 F 114 H 16 121/73 100 01/13/18 17:22 01/13/18 19:46 01/13/18 17:22 01/13/18 17:22 01/13/18 17:22 Intake & Output 01/12/18 01/13/18 01/14/18 06:59 06:59 06:59 Intake Total 2375 3449 1524 Balance 2375 3449 1524 Weight 58.3 kg General appearance: PRESENT: no acute distress Eye exam: PRESENT: PERRLA Respiratory exam: PRESENT: clear to auscultation ishan Cardiovascular exam: PRESENT: +S1, +S2 Neurological exam: PRESENT: alert Results Laboratory Results: 01/13/18 04:51 01/13/18 04:51 01/12/18 01/13/18 01/13/18 19:50 04:51 04:51 WBC 21.5 H 21.8 H RBC 3.28 L 3.17 L Hgb 9.7 L 9.2 L Hct 28.7 L 28.3 L MCV 88 89 MCH 29.5 29.1 MCHC 33.7 32.6 RDW 15.1 H 15.1 H Plt Count 445 484 H Sodium 136.8 L Potassium 4.8 Chloride 100 Carbon Dioxide 27 Anion Gap 10 BUN 13 Creatinine 0.50 L Est GFR ( Amer) > 60 Est GFR (Non-Af Amer) > 60 Glucose 109 Calcium 8.9 Impressions: Chest X-Ray 01/05/18 00:00 IMPRESSION: The left subclavian central venous catheter is projected over the left IJ, tip is beyond the superior margin of the image near the cranial junction. Hip X-Ray 01/05/18 00:00 IMPRESSION: Prior surgical changes with no acute abnormality appreciated. Renal Ultrasound 01/06/18 00:00 IMPRESSION: 1. Mild increased bilateral renal cortical echogenicity. This could be seen with medical renal disease. No hydronephrosis. 2. Echogenic material in the base of the urinary bladder likely represents infectious, inflammatory, or hemorrhagic debris. Correlation with urinalysis recommended. Assessment & Plan - Diagnosis (1) Sepsis Qualifiers: Sepsis type: sepsis due to unspecified organism Qualified Code(s): A41.9 - Sepsis, unspecified organism Is this a current diagnosis for this admission?: Yes (2) Acute kidney injury Is this a current diagnosis for this admission?: Yes (3) Sickle cell anemia Qualifiers: Sickle-cell associated disorders: without crisis Qualified Code(s): D57.1 - 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 Is this a current diagnosis for this admission?: Yes (4) Abscess of left hip Is this a current diagnosis for this admission?: Yes (5) Sacral decubitus ulcer Qualifiers: Pressure ulcer stage: stage 2 Qualified Code(s): L89.152 - Pressure ulcer of sacral region, stage 2 Is this a current diagnosis for this admission?: Yes (6) Staphylococcus aureus septicemia Is this a current diagnosis for this admission?: Yes
[2018-01-13] MEDS ORDERED: CEFTRIAXONE 1 GM/D5W RTU 50 ML IV SCH (21:00)
[2018-01-13] MEDS: CEFTRIAXONE SODIUM 1,000 MG in NORMAL SALINE 100 ML IV SCH (22:06)
[2018-01-14] MEDS: FENTANYL CITRATE INJ/PF 100 MCG/2 ML AMPUL IV PRN ×7 (04:22→23:05)
[2018-01-14 06:17] LABS: HEMATOCRIT 27.5 % (37.9-51.0); MEAN CORPUSCULAR HEMOGLOBIN 29.6 pg (27.0-33.4); MEAN CORPUSCULAR HGB CONC 32.8 g/dL (32.0-36.0); MEAN CORPUSCULAR VOLUME 90 fl (80-97); PLATELET COUNT 534 10^3/uL (150-450); RED BLOOD COUNT 3.04 10^6/uL (4.35-5.55); RED CELL DISTRIBUTION WIDTH 15.8 % (11.5-14.0); WHITE BLOOD COUNT 18.3 10^3/uL (4.0-10.5)
--- NOTE | 2018-01-14 06:20 | PDOC PROGRESS REPORT ---
Subjective Progress Note for:: 01/14/18 Reason For Visit: POSSIBLE SEPSIS,ANEMIA,TACHYCARDIA,HIP PAIN 28-year-old black male status post I&D of a left hip arthroplasty complicated by a postoperative pansensitive staph infection Physical Exam Vital Signs: Temp Pulse Resp BP Pulse Ox 37.0 C 99 16 119/77 100 01/14/18 04:15 01/14/18 04:15 01/14/18 04:15 01/14/18 04:15 01/14/18 04:15 Intake & Output 01/12/18 01/13/18 01/14/18 06:59 06:59 06:59 Intake Total 2375 6477 1985 Balance 2375 3449 2479 Weight 58.3 kg General appearance: PRESENT: no acute distress Head exam: PRESENT: normocephalic Respiratory exam: PRESENT: unlabored Cardiovascular exam: PRESENT: tachycardia Pulses: PRESENT: +1 pedal pulses bilateral Vascular exam: PRESENT: normal capillary refill GI/Abdominal exam: PRESENT: soft Rectal exam: PRESENT: deferred Extremities exam: PRESENT: other - Left hip dressing change this morning at about 1:30 AM. Is currently clean dry and intact. Leg lengths are equal. Distal neurovascular examination is intact. Neurological exam: PRESENT: alert, altered, awake, oriented to person, oriented to place, oriented to time, oriented to situation Psychiatric exam: PRESENT: appropriate affect, normal mood. ABSENT: homicidal ideation, suicidal ideation Skin exam: PRESENT: dry, intact, warm. ABSENT: cyanosis, rash Results Laboratory Results: 01/13/18 04:51 01/13/18 04:51 WBC 21.8 H RBC 3.17 L Hgb 9.2 L Hct 28.3 L MCV 89 MCH 29.1 MCHC 32.6 RDW 15.1 H Plt Count 484 H Impressions: Chest X-Ray 01/05/18 00:00 IMPRESSION: The left subclavian central venous catheter is projected over the left IJ, tip is beyond the superior margin of the image near the cranial junction. Hip X-Ray 01/05/18 00:00 IMPRESSION: Prior surgical changes with no acute abnormality appreciated. Renal Ultrasound 01/06/18 00:00 IMPRESSION: 1. Mild increased bilateral renal cortical echogenicity. This could be seen with medical renal disease. No hydronephrosis. 2. Echogenic material in the base of the urinary bladder likely represents infectious, inflammatory, or hemorrhagic debris. Correlation with urinalysis recommended. Status: Imported from PACS Assessment & Plan - Diagnosis (1) Abscess of left hip Is this a current diagnosis for this admission?: Yes Plan: Patient being mobilized with physical therapy. Relatively little slow progress in light of the fact that a week and a half ago he was ambulating with a walker quite effectively. He attributes his slow progress to pain and is requesting increased pain medication. His Percocet has been changed to a q. 4 hour as needed medication Left hip dressing can be changed on a as needed basis if it becomes saturated. - Time Time Spent with patient: 15-24 minutes Anticipated discharge: SNF Within: when bed available
[2018-01-14] MEDS: OXYCODONE-ACETAMINOPHEN 5-325 MG TABLET PO PRN ×3 (09:15→18:18)
[2018-01-14] MEDS: FOLIC ACID 1 MG TABLET PO SCH (09:15)
[2018-01-14] MEDS: ASPIRIN 81 MG TABLET, ENT COATED PO SCH (09:15)
[2018-01-14] MEDS: LEVETIRACETAM 500 MG TABLET PO SCH ×2 (09:15→18:16)
[2018-01-14] MEDS: MAGNESIUM OXIDE 400 MG TABLET PO SCH (09:15)
[2018-01-14] MEDS: DEXTROSE 5%-NORMAL SALINE 1,000 ML IV PRN (16:27)
--- NOTE | 2018-01-14 16:32 | RADIOLOGY REPORT (SQ) ---
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 NUMBER OF VIEWS: Two views TECHNIQUE: AP pelvis and additional frog-leg view of both hips. LIMITATIONS: None. FINDINGS: MINERALIZATION: Normal. HIPS: Stable surgical changes in the right hip and femur. Dislocation of the left hip prosthesis. PELVIS AND SACRUM: No acute fracture or dislocation. No worrisome bone lesions. PUBIS AND ISCHIUM: No acute fracture. LOWER LUMBAR SPINE: No significant findings as visualized. SOFT TISSUES: No findings. OTHER: No other significant finding. IMPRESSION: DISLOCATION OF THE LEFT HIP PROSTHESIS. STABLE SURGICAL CHANGES IN THE RIGHT HIP AND FE MUR. TECHNICAL DOCUMENTATION: JOB ID: [id number] [employer]- All Rights Reserved Reading location - IP/workstation name: [facility]
--- NOTE | 2018-01-14 16:33 | RADIOLOGY REPORT (SQ) ---
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 NUMBER OF VIEWS: Two views. TECHNIQUE: AP and lateral radiographic images acquired of the right knee. LIMITATIONS: None. FINDINGS: MINERALIZATION: Diffuse demineralization. BONES: No acute fracture or dislocation. Hardware in the distal femur. No worrisome bone lesions. JOINT: No effusion. SOFT TISSUES: No soft tissue swelling. No radio-opaque foreign body. OTHER: No other significant finding. IMPRESSION: HARDWARE IN THE DISTAL FEMUR. NO ACUTE FINDINGS. TECHNICAL DOCUMENTATION: JOB ID: [id number] [employer]- All Rights Reserved Reading location - IP/workstation name: [email or web address]
--- NOTE | 2018-01-14 20:32 | PDOC PROGRESS REPORT ---
Subjective Progress Note for:: 01/14/18 Subjective:: Patient is in a lot of pain, very unlike this patient despite sickle cell disease he has high pain tolerance, x-ray of the hip was done it showed dislocation of the left hip prosthesis. He denies any fall or unusual twisting of the hip Reason For Visit: POSSIBLE SEPSIS,ANEMIA,TACHYCARDIA,HIP PAIN Physical Exam Vital Signs: Temp Pulse Resp BP Pulse Ox 98.0 F 107 H 18 123/75 99 01/14/18 12:34 01/14/18 14:00 01/14/18 12:34 01/14/18 12:34 01/14/18 12:34 Intake & Output 01/13/18 01/14/18 01/15/18 06:59 06:59 06:59 Intake Total 3449 2476 600 Balance 3449 2476 600 General appearance: PRESENT: no acute distress Eye exam: PRESENT: PERRLA Respiratory exam: PRESENT: clear to auscultation ishan Cardiovascular exam: PRESENT: +S1, +S2 GI/Abdominal exam: PRESENT: soft Neurological exam: PRESENT: alert Results Laboratory Results: 01/14/18 05:26 01/13/18 04:51 01/14/18 05:26 WBC 18.3 H RBC 3.04 L Hgb 9.0 L Hct 27.5 L MCV 90 MCH 29.6 MCHC 32.8 RDW 15.8 H Plt Count 534 H Impressions: Chest X-Ray 01/05/18 00:00 IMPRESSION: The left subclavian central venous catheter is projected over the left IJ, tip is beyond the superior margin of the image near the cranial junction. Renal Ultrasound 01/06/18 00:00 IMPRESSION: 1. Mild increased bilateral renal cortical echogenicity. This could be seen with medical renal disease. No hydronephrosis. 2. Echogenic material in the base of the urinary bladder likely represents infectious, inflammatory, or hemorrhagic debris. Correlation with urinalysis recommended. Knee X-Ray 01/14/18 00:00 IMPRESSION: HARDWARE IN THE DISTAL FEMUR. NO ACUTE FINDINGS. Hip X-Ray 01/14/18 15:42 IMPRESSION: DISLOCATION OF THE LEFT HIP PROSTHESIS. STABLE SURGICAL CHANGES IN THE RIGHT HIP AND FEMUR. Assessment & Plan - Diagnosis (1) Sepsis Qualifiers: Sepsis type: sepsis due to unspecified organism Qualified Code(s): A41.9 - Sepsis, unspecified organism Is this a current diagnosis for this admission?: Yes (2) Acute kidney injury Is this a current diagnosis for this admission?: Yes (3) Sickle cell anemia Qualifiers: Sickle-cell associated disorders: without crisis Qualified Code(s): D57.1 - 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 Is this a current diagnosis for this admission?: Yes (4) Abscess of left hip Is this a current diagnosis for this admission?: Yes (5) Sacral decubitus ulcer Qualifiers: Pressure ulcer stage: stage 2 Qualified Code(s): L89.152 - Pressure ulcer of sacral region, stage 2 Is this a current diagnosis for this admission?: Yes (6) Staphylococcus aureus septicemia Is this a current diagnosis for this admission?: Yes (7) Dislocation of internal left hip prosthesis, initial encounter Is this a current diagnosis for this admission?: Yes
[2018-01-14] MEDS: CEFTRIAXONE SODIUM 1,000 MG in NORMAL SALINE 100 ML IV SCH (21:16)
[2018-01-15] MEDS: FENTANYL CITRATE INJ/PF 100 MCG/2 ML AMPUL IV PRN ×8 (03:18→23:18)
[2018-01-15] MEDS ORDERED: ONDANSETRON HCL INJ/PF 4 MG/2 ML SDV IV PRN (08:18)
[2018-01-15] MEDS ORDERED: PROMETHAZINE HCL INJ 25 MG/1 ML VIAL IV PRN (08:18)
[2018-01-15] MEDS ORDERED: DIPHENHYDRAMINE HCL 50 MG/ML VIAL IV PRN (08:18)
[2018-01-15] MEDS ORDERED: FENTANYL CITRATE INJ/PF 100 MCG/2 ML AMPUL IV PRN ×3 (08:18)
[2018-01-15] MEDS ORDERED: METOCLOPRAMIDE HCL INJ/PF 10 MG/2 ML SDV ONE (08:30)
[2018-01-15] MEDS ORDERED: SUCCINYLCHOLINE CHLORIDE INJ 200 MG/10 ML VIAL ONE (08:30)
[2018-01-15] MEDS ORDERED: LIDOCAINE 2% INJ-PF (20 MG/ML) 2 ML AMPUL ONE (08:30)
--- NOTE | 2018-01-15 08:58 | Operative Report ---
Operative Report DATE OF SURGERY: 01/15/18 PREOPERATIVE DIAGNOSIS: Left prosthetic hip dislocation OPERATION: Closed reduction left hip dislocation SURGEON: YON FRASER ANESTHESIA: GA ESTIMATED BLOOD LOSS: None PROCEDURE: Under general anesthetic the left lower extremities manipulated to affect a closed reduction of the left hip dislocation. There also appears to be an abduction contracture and the abductors were gently stretched under muscle relaxant. Radiographs were obtained to assure that the hip was concentrically reduced. Patient's return to the PACU in satisfactory condition.
[2018-01-15] MEDS ORDERED: HYDROMORPHONE HCL INJ/PF 2 MG/ML AMPULE INJ ONE (09:15)
[2018-01-15] MEDS ORDERED: FENTANYL CITRATE INJ/PF 100 MCG/2 ML AMPUL ONE (09:16)
--- NOTE | 2018-01-15 10:24 | RADIOLOGY REPORT (SQ) ---
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 NUMBER OF VIEWS: One view TECHNIQUE: Digital radiographic images of the pelvis post-procedure LIMITATIONS: Left femoral component excluded from field of view. FINDINGS: BONES: No worrisome or unexpected findings post-procedure. DEVICE: Left total hip arthroplasty. SOFT TISSUES: No worrisome findings. Expected postoperative soft tissue changes. IMPRESSION: SATISFACTORY POSTOPERATIVE PELVIS. TECHNICAL DOCUMENTATION: JOB ID: [id number] [employer]- All Rights Reserved Reading location - IP/workstation name: [email or web address]
--- NOTE | 2018-01-15 10:24 | RADIOLOGY REPORT (SQ) ---
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 NUMBER OF VIEWS: One view TECHNIQUE: Digital radiographic images of the pelvis post-procedure LIMITATIONS: Left femoral component excluded from field of view. FINDINGS: BONES: No worrisome or unexpected findings post-procedure. DEVICE: Left total hip arthroplasty. SOFT TISSUES: No worrisome findings. Expected postoperative soft tissue changes. IMPRESSION: SATISFACTORY POSTOPERATIVE PELVIS. TECHNICAL DOCUMENTATION: JOB ID: [id number] [employer]- All Rights Reserved Reading location - IP/workstation name: [email or web address]
[2018-01-15] MEDS: FOLIC ACID 1 MG TABLET PO SCH (10:27)
[2018-01-15] MEDS: LEVETIRACETAM 500 MG TABLET PO SCH ×2 (10:27→18:55)
[2018-01-15] MEDS: MAGNESIUM OXIDE 400 MG TABLET PO SCH (10:27)
[2018-01-15] MEDS: ASPIRIN 81 MG TABLET, ENT COATED PO SCH (10:28)
[2018-01-15] MEDS: OXYCODONE-ACETAMINOPHEN 5-325 MG TABLET PO PRN ×3 (10:28→22:34)
[2018-01-15] MEDS: DEXTROSE 5%-NORMAL SALINE 1,000 ML IV PRN (10:30)
--- NOTE | 2018-01-15 14:26 | PDOC PROGRESS REPORT ---
Subjective Progress Note for:: 01/15/18 Subjective:: Patient reported continue left hip joint pain. No chest pain or difficulty with breathing. No fever or chills. Reason For Visit: POSSIBLE SEPSIS,ANEMIA,TACHYCARDIA,HIP PAIN Physical Exam Vital Signs: Temp Pulse Resp BP Pulse Ox 98.1 F 107 H 16 104/62 100 01/15/18 11:53 01/15/18 11:53 01/15/18 11:53 01/15/18 11:53 01/15/18 11:53 Intake & Output 01/14/18 01/15/18 01/16/18 06:59 06:59 06:59 Intake Total 2476 2820 1000 Output Total 1700 100 Balance 2476 1120 900 General appearance: PRESENT: mild distress - related to ongoing pain Head exam: PRESENT: atraumatic, normocephalic Eye exam: PRESENT: conjunctiva pink, EOMI, PERRLA. ABSENT: scleral icterus Mouth exam: PRESENT: moist Respiratory exam: PRESENT: clear to auscultation ishan Cardiovascular exam: PRESENT: RRR. ABSENT: diastolic murmur, rubs, systolic murmur GI/Abdominal exam: PRESENT: normal bowel sounds, soft. ABSENT: distended, guarding, mass, organolmegaly, rebound, tenderness Extremities exam: PRESENT: other - wedge foam in use to maintain hip joint abductor position. ABSENT: pedal edema Neurological exam: PRESENT: alert, awake, oriented to person, oriented to place , oriented to time, oriented to situation, CN II-XII grossly intact. ABSENT: motor sensory deficit Psychiatric exam: PRESENT: appropriate affect, normal mood. ABSENT: homicidal ideation, suicidal ideation Skin exam: PRESENT: other - sacral decubitus ulcer Results Laboratory Results: 01/14/18 05:26 01/13/18 04:51 Impressions: Chest X-Ray 01/05/18 00:00 IMPRESSION: The left subclavian central venous catheter is projected over the left IJ, tip is beyond the superior margin of the image near the cranial junction. Renal Ultrasound 01/06/18 00:00 IMPRESSION: 1. Mild increased bilateral renal cortical echogenicity. This could be seen with medical renal disease. No hydronephrosis. 2. Echogenic material in the base of the urinary bladder likely represents infectious, inflammatory, or hemorrhagic debris. Correlation with urinalysis recommended. Knee X-Ray 01/14/18 00:00 IMPRESSION: HARDWARE IN THE DISTAL FEMUR. NO ACUTE FINDINGS. Fluoroscopy 01/15/18 00:00 IMPRESSION: SATISFACTORY POSTOPERATIVE PELVIS. Hip X-Ray 01/15/18 00:00 IMPRESSION: SATISFACTORY POSTOPERATIVE PELVIS. Assessment & Plan - Diagnosis (1) Abscess of left hip Is this a current diagnosis for this admission?: Yes Plan: Continue IV Ceftriaxone coverage based on wound culture sensitivity report on E.Coli. Protues Mirabilis and MSSA growth. (2) Staphylococcus aureus septicemia Is this a current diagnosis for this admission?: Yes Plan: Continue IV Ceftriaxone coverage based on blood culture sensitivity report on MSSA growth. (3) Sacral decubitus ulcer Qualifiers: Pressure ulcer stage: stage 2 Qualified Code(s): L89.152 - Pressure ulcer of sacral region, stage 2 Is this a current diagnosis for this admission?: Yes Plan: Continue current wound management and antibiotic therapy. (4) Sickle cell anemia Qualifiers: Sickle-cell associated disorders: without crisis Qualified Code(s): D57.1 - 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 Is this a current diagnosis for this admission?: Yes Plan: Continue current management. - Time Time Spent with patient: 25-34 minutes Medications reviewed and adjusted accordingly: Yes Anticipated discharge: SNF Within: Other - Inpatient Certification Based on my medical assessment, after consideration of the patient's comorbidities, presenting symptoms, or acuity I expect that the services needed warrant INPATIENT care.: Yes I certify that my determination is in accordance with my understanding of Medicare's requirements for reasonable and necessary INPATIENT services [42 CFR 412.3e].: Yes Medical Necessity: Need Close Monitoring Due to Risk of Patient Decompensation, Need For IV Fluids, Need For Continuous Telemetry Monitoring, Need for Pain Control, Need for IV Antibiotics, Risk of Complication if Not Cared For in Hospital Post Hospital Care: D/C or Transfer Summary - Plan Summary Plan Summary: See covering attending physician orders.
[2018-01-15] MEDS: CEFTRIAXONE SODIUM 1,000 MG in NORMAL SALINE 100 ML IV SCH (21:11)
[2018-01-16] MEDS: FENTANYL CITRATE INJ/PF 100 MCG/2 ML AMPUL IV PRN ×5 (01:35→21:13)
[2018-01-16] MEDS: OXYCODONE-ACETAMINOPHEN 5-325 MG TABLET PO PRN ×4 (03:13→23:25)
[2018-01-16 05:54] LABS: ABSOLUTE BASOPHILS # (AUTO) 0.1 10^3/uL (0.0-0.2); ABSOLUTE EOSINOPHILS # (AUTO) 0.2 10^3/uL (0.0-0.6); ABSOLUTE LYMPHOCYTES (AUTO) 1.6 10^3/uL (0.5-4.7); ABSOLUTE MONOCYTES (AUTO) 1.6 10^3/uL (0.1-1.4); ABSOLUTE NEUT (AUTO) 11.2 10^3/uL (1.7-8.2); BASOPHILS % (AUTO) 0.7 % (0-2); EOSINOPHILS % (AUTO) 1.6 % (0-6); HEMATOCRIT 24.4 % (37.9-51.0); HEMOGLOBIN 8.1 g/dL (13.5-17.0); LYMPHOCYTES % (AUTO) 10.5 % (13-45); MEAN CORPUSCULAR HEMOGLOBIN 29.6 pg (27.0-33.4); MEAN CORPUSCULAR VOLUME 90 fl (80-97); PLATELET COUNT 623 10^3/uL (150-450); RED BLOOD COUNT 2.72 10^6/uL (4.35-5.55); RED CELL DISTRIBUTION WIDTH 16.2 % (11.5-14.0); SEGMENTED NEUTROPHILS % (AUTO) 76.2 % (42-78); TOTAL CELLS COUNTED % (AUTO) 100 %; WHITE BLOOD COUNT 14.8 10^3/uL (4.0-10.5)
[2018-01-16 06:29] LABS: ANION GAP 8 (5-19); BLOOD UREA NITROGEN 13 mg/dL (7-20); CALCIUM 9.1 mg/dL (8.4-10.2); CARBON DIOXIDE 27 mmol/L (22-30); CHLORIDE 101 mmol/L (98-107); GLUCOSE 105 mg/dL (75-110); POTASSIUM 5.4 mmol/L (3.6-5.0); SODIUM 136.2 mmol/L (137-145)
[2018-01-16] MEDS: LEVETIRACETAM 500 MG TABLET PO SCH ×2 (09:30→18:03)
[2018-01-16] MEDS: MAGNESIUM OXIDE 400 MG TABLET PO SCH (09:30)
[2018-01-16] MEDS: ASPIRIN 81 MG TABLET, ENT COATED PO SCH (09:31)
[2018-01-16] MEDS: FOLIC ACID 1 MG TABLET PO SCH (09:31)
--- NOTE | 2018-01-16 13:48 | PDOC PROGRESS REPORT ---
Subjective Progress Note for:: 01/16/18 Subjective:: No chest pain or difficulty with breathing. No fever or chills. No nausea, vomiting, or abdominal pain. Patient reported left hip joint pain on current medication regimen as fairly controlled. Reason For Visit: POSSIBLE SEPSIS,ANEMIA,TACHYCARDIA,HIP PAIN Physical Exam Vital Signs: Temp Pulse Resp BP Pulse Ox 98.0 F 108 H 16 109/66 100 01/16/18 11:21 01/16/18 11:21 01/16/18 11:21 01/16/18 11:21 01/16/18 11:21 Intake & Output 01/15/18 01/16/18 01/17/18 06:59 06:59 06:59 Intake Total 2820 3027 237 Output Total 1700 2600 300 Balance 1120 427 -63 Weight 57.9 kg Physical Exam: General appearance: PRESENT: mild distress - related to ongoing pain Head exam: PRESENT: atraumatic, normocephalic Eye exam: PRESENT: conjunctiva pink, EOMI, PERRLA. ABSENT: scleral icterus Mouth exam: PRESENT: moist Respiratory exam: PRESENT: clear to auscultation ishan Cardiovascular exam: PRESENT: RRR. ABSENT: diastolic murmur, rubs, systolic murmur GI/Abdominal exam: PRESENT: normal bowel sounds, soft. ABSENT: distended, guarding, mass, organomegaly, rebound, tenderness Extremities exam: PRESENT: other - wedge foam in use to maintain hip joint abductor position. ABSENT: pedal edema Neurological exam: PRESENT: alert, awake, oriented to person, oriented to place , oriented to time, oriented to situation, CN II-XII grossly intact. ABSENT: motor sensory deficit Psychiatric exam: PRESENT: appropriate affect, normal mood. ABSENT: homicidal ideation, suicidal ideation Skin exam: PRESENT: other - sacral decubitus ulcer Results Laboratory Results: 01/16/18 05:23 01/16/18 05:23 01/16/18 01/16/18 05:23 05:23 WBC 14.8 H RBC 2.72 L Hgb 8.1 L Hct 24.4 L MCV 90 MCH 29.6 MCHC 33.0 RDW 16.2 H Plt Count 623 H Seg Neutrophils % 76.2 Lymphocytes % 10.5 L Monocytes % 11.0 Eosinophils % 1.6 Basophils % 0.7 Absolute Neutrophils 11.2 H Absolute Lymphocytes 1.6 Absolute Monocytes 1.6 H Absolute Eosinophils 0.2 Absolute Basophils 0.1 Sodium 136.2 L Potassium 5.4 H Chloride 101 Carbon Dioxide 27 Anion Gap 8 BUN 13 Creatinine 0.49 L Est GFR ( Amer) > 60 Est GFR (Non-Af Amer) > 60 Glucose 105 Calcium 9.1 Impressions: Chest X-Ray 01/05/18 00:00 IMPRESSION: The left subclavian central venous catheter is projected over the left IJ, tip is beyond the superior margin of the image near the cranial junction. Renal Ultrasound 01/06/18 00:00 IMPRESSION: 1. Mild increased bilateral renal cortical echogenicity. This could be seen with medical renal disease. No hydronephrosis. 2. Echogenic material in the base of the urinary bladder likely represents infectious, inflammatory, or hemorrhagic debris. Correlation with urinalysis recommended. Knee X-Ray 01/14/18 00:00 IMPRESSION: HARDWARE IN THE DISTAL FEMUR. NO ACUTE FINDINGS. Fluoroscopy 01/15/18 00:00 IMPRESSION: SATISFACTORY POSTOPERATIVE PELVIS. Hip X-Ray 01/15/18 00:00 IMPRESSION: SATISFACTORY POSTOPERATIVE PELVIS. Assessment & Plan - Diagnosis (1) Abscess of left hip Is this a current diagnosis for this admission?: Yes (2) Staphylococcus aureus septicemia Is this a current diagnosis for this admission?: Yes (3) Sacral decubitus ulcer Qualifiers: Pressure ulcer stage: stage 2 Qualified Code(s): L89.152 - Pressure ulcer of sacral region, stage 2 Is this a current diagnosis for this admission?: Yes (4) Sickle cell anemia Qualifiers: Sickle-cell associated disorders: without crisis Qualified Code(s): D57.1 - 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 Is this a current diagnosis for this admission?: Yes - Time Time Spent with patient: 25-34 minutes Medications reviewed and adjusted accordingly: Yes Anticipated discharge: Other Within: Other - Inpatient Certification Medical Necessity: Need Close Monitoring Due to Risk of Patient Decompensation, Need For IV Fluids, Need For Continuous Telemetry Monitoring, Need for IV Antibiotics, Risk of Complication if Not Cared For in Hospital Post Hospital Care: Other - Plan Summary Plan Summary: See covering attending physician orders.
[2018-01-16] MEDS: DEXTROSE 5%-NORMAL SALINE 1,000 ML IV PRN (14:10)
[2018-01-16] MEDS: CEFTRIAXONE SODIUM 1,000 MG in NORMAL SALINE 100 ML IV SCH (21:13)
[2018-01-17] MEDS: FENTANYL CITRATE INJ/PF 100 MCG/2 ML AMPUL IV PRN ×7 (00:14→17:16)
[2018-01-17] MEDS: DEXTROSE 5%-NORMAL SALINE 1,000 ML IV PRN (06:16)
[2018-01-17 06:27] LABS: ABSOLUTE BASOPHILS # (AUTO) 0.1 10^3/uL (0.0-0.2); ABSOLUTE EOSINOPHILS # (AUTO) 0.3 10^3/uL (0.0-0.6); ABSOLUTE LYMPHOCYTES (AUTO) 1.4 10^3/uL (0.5-4.7); ABSOLUTE MONOCYTES (AUTO) 1.4 10^3/uL (0.1-1.4); ABSOLUTE NEUT (AUTO) 10.5 10^3/uL (1.7-8.2); EOSINOPHILS % (AUTO) 2.1 % (0-6); HEMATOCRIT 24.1 % (37.9-51.0); LYMPHOCYTES % (AUTO) 10.1 % (13-45); MEAN CORPUSCULAR HEMOGLOBIN 29.8 pg (27.0-33.4); MEAN CORPUSCULAR HGB CONC 32.8 g/dL (32.0-36.0); MEAN CORPUSCULAR VOLUME 91 fl (80-97); MONOCYTES % (AUTO) 10.3 % (3-13); PLATELET COUNT 630 10^3/uL (150-450); RED BLOOD COUNT 2.66 10^6/uL (4.35-5.55); RED CELL DISTRIBUTION WIDTH 16.1 % (11.5-14.0); SEGMENTED NEUTROPHILS % (AUTO) 76.5 % (42-78); TOTAL CELLS COUNTED % (AUTO) 100 %; WHITE BLOOD COUNT 13.7 10^3/uL (4.0-10.5)
[2018-01-17 06:33] LABS: HEMOGLOBIN 7.9 g/dL (13.5-17.0)
[2018-01-17 06:41] LABS: ANION GAP 8 (5-19); BLOOD UREA NITROGEN 14 mg/dL (7-20); CALCIUM 9.2 mg/dL (8.4-10.2); CARBON DIOXIDE 30 mmol/L (22-30); CHLORIDE 100 mmol/L (98-107); GLUCOSE 105 mg/dL (75-110); POTASSIUM 5.4 mmol/L (3.6-5.0); SODIUM 137.5 mmol/L (137-145)
--- NOTE | 2018-01-17 06:57 | PDOC PROGRESS REPORT ---
Subjective Progress Note for:: 01/17/18 Reason For Visit: POSSIBLE SEPSIS,ANEMIA,TACHYCARDIA,HIP PAIN 28-year-old black male with sickle cell disease who is approximately 2 months status post left hip arthroplasty for failed internal fixation of a hip fracture and then developed a left periprosthetic pansensitive staph infection possibly related to his sacral decubitus. Patient was noted to have a left hip dislocation and underwent a closed reduction and application of an abduction pillow on Wednesday. He is now complaining of right lower extremity pain which is severe. Physical Exam Vital Signs: Temp Pulse Resp BP Pulse Ox 36.5 C 104 H 16 107/63 98 01/17/18 03:47 01/17/18 03:47 01/17/18 03:47 01/17/18 03:47 01/17/18 03:47 Intake & Output 01/15/18 01/16/18 01/17/18 06:59 06:59 06:59 Intake Total 2820 3027 2789 Output Total 1700 2600 3000 Balance 1120 427 -211 Weight 57.9 kg 58 kg General appearance: PRESENT: no acute distress Head exam: PRESENT: normocephalic Respiratory exam: PRESENT: unlabored Cardiovascular exam: PRESENT: tachycardia Pulses: PRESENT: +1 pedal pulses bilateral GI/Abdominal exam: PRESENT: soft Rectal exam: PRESENT: deferred Extremities exam: PRESENT: other - Palpation of the right lower extremity in the supracondylar region is mildly tender. Passive range of motion of the knee particularly with flexion past 30 causes the patient excruciating discomfort. Distal neurovascular examination is intact. Neurological exam: PRESENT: alert, awake, oriented to person, oriented to place , oriented to time, oriented to situation. ABSENT: motor sensory deficit Psychiatric exam: PRESENT: appropriate affect Skin exam: PRESENT: dry, intact, warm. ABSENT: cyanosis, rash Results Laboratory Results: 01/17/18 06:07 01/17/18 06:07 01/17/18 01/17/18 06:07 06:07 WBC 13.7 H RBC 2.66 L Hgb 7.9 L Hct 24.1 L MCV 91 MCH 29.8 MCHC 32.8 RDW 16.1 H Plt Count 630 H Seg Neutrophils % 76.5 Lymphocytes % 10.1 L Monocytes % 10.3 Eosinophils % 2.1 Basophils % 1.0 Absolute Neutrophils 10.5 H Absolute Lymphocytes 1.4 Absolute Monocytes 1.4 Absolute Eosinophils 0.3 Absolute Basophils 0.1 Sodium 137.5 Potassium 5.4 H Chloride 100 Carbon Dioxide 30 Anion Gap 8 BUN 14 Creatinine 0.48 L Est GFR ( Amer) > 60 Est GFR (Non-Af Amer) > 60 Glucose 105 Calcium 9.2 Impressions: Chest X-Ray 01/05/18 00:00 IMPRESSION: The left subclavian central venous catheter is projected over the left IJ, tip is beyond the superior margin of the image near the cranial junction. Renal Ultrasound 01/06/18 00:00 IMPRESSION: 1. Mild increased bilateral renal cortical echogenicity. This could be seen with medical renal disease. No hydronephrosis. 2. Echogenic material in the base of the urinary bladder likely represents infectious, inflammatory, or hemorrhagic debris. Correlation with urinalysis recommended. Knee X-Ray 01/14/18 00:00 IMPRESSION: HARDWARE IN THE DISTAL FEMUR. NO ACUTE FINDINGS. Fluoroscopy 01/15/18 00:00 IMPRESSION: SATISFACTORY POSTOPERATIVE PELVIS. Hip X-Ray 01/15/18 00:00 IMPRESSION: SATISFACTORY POSTOPERATIVE PELVIS. Status: Imported from PACS Assessment & Plan - Diagnosis (1) Abscess of left hip Is this a current diagnosis for this admission?: Yes Plan: Currently being treated with Rocephin (2) Pain of right lower extremity Is this a current diagnosis for this admission?: Yes Plan: Right lower extremity pain which is new in onset and of uncertain etiology. X- rays demonstrated previous long gamma nail for right proximal femoral fracture. This is not changed in position. There is no other bone abnormalities that can be discerned on plain films by myself. An MRI scan was ordered and was precluded for reasons that are not entirely clear but probably related to the [place] in his left hip. A bone scan has been ordered for today. (3) Sacral decubitus ulcer Qualifiers: Pressure ulcer stage: stage 2 Qualified Code(s): L89.152 - Pressure ulcer of sacral region, stage 2 Is this a current diagnosis for this admission?: Yes Plan: Rarely being treated with appropriate local therapy. Relative malnutrition is probably limiting healing - Time Time Spent with patient: 15-24 minutes Anticipated discharge: Other Within: Other
[2018-01-17] MEDS: OXYCODONE-ACETAMINOPHEN 5-325 MG TABLET PO PRN ×3 (08:46→17:16)
[2018-01-17] MEDS: LEVETIRACETAM 500 MG TABLET PO SCH ×2 (10:00→17:17)
[2018-01-17] MEDS: ASPIRIN 81 MG TABLET, ENT COATED PO SCH (10:01)
[2018-01-17] MEDS: MAGNESIUM OXIDE 400 MG TABLET PO SCH (10:01)
[2018-01-17] MEDS: FOLIC ACID 1 MG TABLET PO SCH (10:01)
--- NOTE | 2018-01-17 14:17 | RADIOLOGY REPORT (SQ) ---
EXAM DESCRIPTION: NM WHOLE BODY BONE SCAN COMPLETED DATE/TIME: 01/17/2018 1:49 pm REASON FOR STUDY: Right Lower Extremity Pain A41.9 SEPSIS, UNSPECIFIED ORGANISM E83.119 HEMOCHROMA TOSIS, UNSPECIFIED N17.0 ACUTE KIDNEY FAILURE WITH TUBULAR NECROSIS COMPARISON: Pelvis and hip films 08/17/2017, 12/01/2017, 01/05/2018, 01/14/2018, 01/15/2018 RADIONUCLIDE AND DOSE: 21.3 millicuries Tc99m MDP. The route of agent administration: Intravenous. ADDITIONAL DRUGS AND DOSES: None. TECHNIQUE: Routine delayed images at 3 hour post radionuclide injection acquired of the bony skeleto n including anterior and posterior whole-body projections and additional focused images as needed. LIMITATIONS: None. FINDINGS: BONES: On the right side, an old femoral neck fracture is present stabilized with a lag sc rew and long intramedullary nail. Today's bone scan demonstrates increased uptake along the right le sser trochanter, which correlates with the trochanteric fragment from the old fracture. There is mil d increased uptake throughout the right greater trochanter and proximal metaphysis, likely due to str ess reaction, the proximal femur by plain film demonstrates shortening at the femoral neck related to telescoping of the lag screw. On the left side, there is a bare area of activity over the femoral head from left hip replacement. There is a C shaped area of increased uptake is present along the left hemipelvis adjacent to the deniz tabular component of the hip replacement. On the most recent plain films there is a small amount of periosteal new bone along the medial wall of the acetabulum. This could represent healing microfract ure adjacent to the acetabular component. Increased uptake is present along the left proximal femur greater and lesser trochanter and proximal metaphysis. This is within expected range for hip replacement placed in November of this year. Remainder of the bone scan demonstrates mild increased uptake at the shoulders elbows and knees relat ed to osteoarthritis. Accumulation in the spleen which is small and calcified/ossified. KIDNEYS: Symmetric excretion without obstruction. OTHER: No other significant finding. IMPRESSION: Increased uptake at both hips as above. COMMENT: Quality measure 147: Current bone scan is compared with any available plain radiographs, p rior bone scans, and CT/MRI. TECHNICAL DOCUMENTATION: JOB ID: [id number] [employer]- All Rights Reserved Reading location - IP/workstation name: [email or web address]
[2018-01-17] MEDS: HYDROMORPHONE HCL INJ/PF 2 MG/ML AMPULE IV PRN (18:52)
--- NOTE | 2018-01-17 20:18 | PDOC PROGRESS REPORT ---
Subjective Progress Note for:: 01/17/18 Subjective:: Patient seen by the bedside, he continues to require pain medication Reason For Visit: POSSIBLE SEPSIS,ANEMIA,TACHYCARDIA,HIP PAIN Physical Exam Vital Signs: Temp Pulse Resp BP Pulse Ox 97.7 F 114 H 16 111/67 100 01/17/18 19:17 01/17/18 19:17 01/17/18 19:17 01/17/18 19:17 01/17/18 19:17 Intake & Output 01/16/18 01/17/18 01/18/18 06:59 06:59 06:59 Intake Total 3027 2789 1510 Output Total 2600 3000 1500 Balance 427 -211 10 Weight 57.9 kg 58 kg General appearance: PRESENT: no acute distress Eye exam: PRESENT: PERRLA Respiratory exam: PRESENT: clear to auscultation ishan Cardiovascular exam: PRESENT: +S1, +S2 Neurological exam: PRESENT: alert Results Laboratory Results: 01/17/18 06:07 01/17/18 06:07 01/17/18 01/17/18 06:07 06:07 WBC 13.7 H RBC 2.66 L Hgb 7.9 L Hct 24.1 L MCV 91 MCH 29.8 MCHC 32.8 RDW 16.1 H Plt Count 630 H Seg Neutrophils % 76.5 Lymphocytes % 10.1 L Monocytes % 10.3 Eosinophils % 2.1 Basophils % 1.0 Absolute Neutrophils 10.5 H Absolute Lymphocytes 1.4 Absolute Monocytes 1.4 Absolute Eosinophils 0.3 Absolute Basophils 0.1 Sodium 137.5 Potassium 5.4 H Chloride 100 Carbon Dioxide 30 Anion Gap 8 BUN 14 Creatinine 0.48 L Est GFR ( Amer) > 60 Est GFR (Non-Af Amer) > 60 Glucose 105 Calcium 9.2 Impressions: Chest X-Ray 01/05/18 00:00 IMPRESSION: The left subclavian central venous catheter is projected over the left IJ, tip is beyond the superior margin of the image near the cranial junction. Renal Ultrasound 01/06/18 00:00 IMPRESSION: 1. Mild increased bilateral renal cortical echogenicity. This could be seen with medical renal disease. No hydronephrosis. 2. Echogenic material in the base of the urinary bladder likely represents infectious, inflammatory, or hemorrhagic debris. Correlation with urinalysis recommended. Knee X-Ray 01/14/18 00:00 IMPRESSION: HARDWARE IN THE DISTAL FEMUR. NO ACUTE FINDINGS. Fluoroscopy 01/15/18 00:00 IMPRESSION: SATISFACTORY POSTOPERATIVE PELVIS. Hip X-Ray 01/15/18 00:00 IMPRESSION: SATISFACTORY POSTOPERATIVE PELVIS. Body Scan Nuclear Medicine 01/17/18 08:00 IMPRESSION: Increased uptake at both hips as above. Assessment & Plan - Diagnosis (1) Sepsis Qualifiers: Sepsis type: sepsis due to unspecified organism Qualified Code(s): A41.9 - Sepsis, unspecified organism Is this a current diagnosis for this admission?: Yes (2) Acute kidney injury Is this a current diagnosis for this admission?: Yes (3) Sickle cell anemia Qualifiers: Sickle-cell associated disorders: without crisis Qualified Code(s): D57.1 - 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 Is this a current diagnosis for this admission?: Yes (4) Abscess of left hip Is this a current diagnosis for this admission?: Yes (5) Sacral decubitus ulcer Qualifiers: Pressure ulcer stage: stage 2 Qualified Code(s): L89.152 - Pressure ulcer of sacral region, stage 2 Is this a current diagnosis for this admission?: Yes (6) Staphylococcus aureus septicemia Is this a current diagnosis for this admission?: Yes (7) Dislocation of internal left hip prosthesis, initial encounter Is this a current diagnosis for this admission?: Yes - Plan Summary Plan Summary: Continue treatment
[2018-01-17] MEDS: CEFTRIAXONE SODIUM 1,000 MG in NORMAL SALINE 100 ML IV SCH (21:19)
[2018-01-17 22:11] LABS: HEMATOCRIT 24.5 % (37.9-51.0); MEAN CORPUSCULAR HEMOGLOBIN 29.3 pg (27.0-33.4); MEAN CORPUSCULAR HGB CONC 32.5 g/dL (32.0-36.0); MEAN CORPUSCULAR VOLUME 90 fl (80-97); PLATELET COUNT 707 10^3/uL (150-450); RED BLOOD COUNT 2.72 10^6/uL (4.35-5.55); RED CELL DISTRIBUTION WIDTH 16.1 % (11.5-14.0); WHITE BLOOD COUNT 16.1 10^3/uL (4.0-10.5)
[2018-01-17 22:24] LABS: INTERNATIONAL RATION (INR) 1.05; PROTHROMBIN TIME 14.4 SEC (11.4-15.4)
[2018-01-18] MEDS: HYDROMORPHONE HCL INJ/PF 2 MG/ML AMPULE IV PRN ×6 (01:20→21:53)
[2018-01-18] MEDS: DEXTROSE 5%-NORMAL SALINE 1,000 ML IV PRN ×2 (01:20→12:25)
--- NOTE | 2018-01-18 06:34 | PDOC PROGRESS REPORT ---
Subjective Progress Note for:: 01/18/18 Reason For Visit: POSSIBLE SEPSIS,ANEMIA,TACHYCARDIA,HIP PAIN Physical Exam Vital Signs: Temp Pulse Resp BP Pulse Ox 36.6 C 99 16 118/74 99 01/18/18 03:20 01/18/18 03:20 01/18/18 03:20 01/18/18 03:20 01/18/18 03:20 Intake & Output 01/16/18 01/17/18 01/18/18 06:59 06:59 06:59 Intake Total 3027 2789 1747 Output Total 2600 3000 2800 Balance 951 -227 -1056 Weight 57.9 kg 58 kg 56.9 kg General appearance: PRESENT: mild distress Respiratory exam: PRESENT: unlabored Cardiovascular exam: PRESENT: tachycardia Pulses: PRESENT: +1 pedal pulses bilateral GI/Abdominal exam: PRESENT: soft Rectal exam: PRESENT: deferred Extremities exam: PRESENT: other - Patient with persistent right lower extremity pain associate with passive range of motion. Pain is primarily felt in the distal femur. Bone scan yesterday demonstrated only increased uptake about the proximal femur bilaterally. There is no lesion in the distal right femur. By physical examination manipulating with passive range of motion I do not feel confident that I can distinguish between hip and or knee/distal thigh etiology. Since an MRI scan is not possible it seems to me that probably that the best option is to perform a diagnostic injection into the right hip. Neurological exam: PRESENT: alert, awake, oriented to person, oriented to place , oriented to time, oriented to situation Psychiatric exam: PRESENT: agitated Skin exam: PRESENT: dry, intact, warm. ABSENT: cyanosis, rash Results Laboratory Results: 01/17/18 21:50 01/17/18 21:50 01/17/18 01/17/18 01/17/18 06:07 06:07 21:50 WBC 13.7 H 16.1 H RBC 2.66 L 2.72 L Hgb 7.9 L 8.0 L Hct 24.1 L 24.5 L MCV 91 90 MCH 29.8 29.3 MCHC 32.8 32.5 RDW 16.1 H 16.1 H Plt Count 630 H 707 H Seg Neutrophils % 76.5 Lymphocytes % 10.1 L Monocytes % 10.3 Eosinophils % 2.1 Basophils % 1.0 Absolute Neutrophils 10.5 H Absolute Lymphocytes 1.4 Absolute Monocytes 1.4 Absolute Eosinophils 0.3 Absolute Basophils 0.1 Sodium 137.5 Potassium 5.4 H Chloride 100 Carbon Dioxide 30 Anion Gap 8 BUN 14 Creatinine 0.48 L Est GFR ( Amer) > 60 Est GFR (Non-Af Amer) > 60 Glucose 105 Calcium 9.2 01/17/18 21:50 WBC RBC Hgb Hct MCV MCH MCHC RDW Plt Count Seg Neutrophils % Lymphocytes % Monocytes % Eosinophils % Basophils % Absolute Neutrophils Absolute Lymphocytes Absolute Monocytes Absolute Eosinophils Absolute Basophils Sodium Potassium Chloride Carbon Dioxide Anion Gap BUN Creatinine 0.46 L Est GFR ( Amer) > 60 Est GFR (Non-Af Amer) > 60 Glucose Calcium Impressions: Chest X-Ray 01/05/18 00:00 IMPRESSION: The left subclavian central venous catheter is projected over the left IJ, tip is beyond the superior margin of the image near the cranial junction. Renal Ultrasound 01/06/18 00:00 IMPRESSION: 1. Mild increased bilateral renal cortical echogenicity. This could be seen with medical renal disease. No hydronephrosis. 2. Echogenic material in the base of the urinary bladder likely represents infectious, inflammatory, or hemorrhagic debris. Correlation with urinalysis recommended. Knee X-Ray 01/14/18 00:00 IMPRESSION: HARDWARE IN THE DISTAL FEMUR. NO ACUTE FINDINGS. Fluoroscopy 01/15/18 00:00 IMPRESSION: SATISFACTORY POSTOPERATIVE PELVIS. Hip X-Ray 01/15/18 00:00 IMPRESSION: SATISFACTORY POSTOPERATIVE PELVIS. Body Scan Nuclear Medicine 01/17/18 08:00 IMPRESSION: Increased uptake at both hips as above. Status: Imported from PACS Assessment & Plan - Diagnosis (1) Abscess of left hip Is this a current diagnosis for this admission?: Yes (2) Pain of right lower extremity Is this a current diagnosis for this admission?: Yes Plan: Plan to perform a diagnostic injection of the right hip with Marcaine and epinephrine under fluoroscopic guidance in radiology? (3) Sacral decubitus ulcer Qualifiers: Pressure ulcer stage: stage 2 Qualified Code(s): L89.152 - Pressure ulcer of sacral region, stage 2 Is this a current diagnosis for this admission?: Yes - Time Time Spent with patient: 15-24 minutes Anticipated discharge: Other Within: Other
[2018-01-18] MEDS: OXYCODONE-ACETAMINOPHEN 5-325 MG TABLET PO PRN ×3 (08:33→18:22)
[2018-01-18] MEDS ORDERED: BUPIVACAINE HCL 0.5 % INJ/PF 30 ML SDV ONE (09:14)
[2018-01-18] MEDS: FENTANYL CITRATE INJ/PF 100 MCG/2 ML AMPUL IV PRN ×3 (09:35→19:16)
--- NOTE | 2018-01-18 10:57 | RADIOLOGY REPORT (SQ) ---
EXAM DESCRIPTION: FLUORO/NEEDLE PLACEMENT; INJECT/ASPIR HIP/SHLDR/KNEE COMPLETED DATE/TIME: 01/18/2018 10:42 am REASON FOR STUDY: severe hip pain; SEVERE RT HIP PAIN POST SURGERY A41.9 SEPSIS, UNSPECIFIED ORGANI SM E83.119 HEMOCHROMATOSIS, UNSPECIFIED N17.0 ACUTE KIDNEY FAILURE WITH TUBULAR NECROSIS COMPARISON: Hip and pelvis films 03/23/2017, 08/17/2017, 12/01/2017, 01/05/2018, 01/14/2018, 01/15/2018 FLUOROSCOPY TIME: 27 seconds 3 digital radiographic images saved to PACS. LIMITATIONS: None. PROCEDURE: SITE OF PROCEDURE: RIGHT HIP LOCALIZING CONTRAST TYPE AND DOSE: NONE MEDICATION TYPE AND DOSE: 6 ML OF 0.5% BUPIVACAINE SET Using local anesthesia and sterile technique with fluoroscopic guidance, the needle was advanced into the joint. Gentle aspiration of the needle yielded thick synovial fluid, which verified intraarticu lar placement. At this point, the aspirated synovial fluid was placed in a sterile container, sent t o the lab for Gram stain, culture and sensitivity. This was followed by therapeutic injection of the bupivacaine. The needle was removed. There were no immediate complications. Preprocedure pain level: 10/10. Postprocedure pain level: 5/10. IMPRESSION: THERAPEUTIC INJECTION OF THE RIGHT HIP JOINT ABOVE. COMMENT: Patient medication list reviewed: Yes- Quality ID# [id number]:Eligible professional attests to doc umenting in the medical record they obtained, updated, or reviewed the patient's current medications. . Quality ID 145: Final reports for procedures using fluoroscopy that document radiation exposure sarah renuka, or exposure time and number of fluorographic images (if radiation exposure indices are not avail able) TECHNICAL DOCUMENTATION: JOB ID: [id number] [email or web address]- All Rights Reserved Reading location - IP/workstation name: [email or web address]
--- NOTE | 2018-01-18 10:57 | RADIOLOGY REPORT (SQ) ---
EXAM DESCRIPTION: FLUORO/NEEDLE PLACEMENT; INJECT/ASPIR HIP/SHLDR/KNEE COMPLETED DATE/TIME: 01/18/2018 10:42 am REASON FOR STUDY: severe hip pain; SEVERE RT HIP PAIN POST SURGERY A41.9 SEPSIS, UNSPECIFIED ORGANI SM E83.119 HEMOCHROMATOSIS, UNSPECIFIED N17.0 ACUTE KIDNEY FAILURE WITH TUBULAR NECROSIS COMPARISON: Hip and pelvis films 03/23/2017, 08/17/2017, 12/01/2017, 01/05/2018, 01/14/2018, 01/15/2018 FLUOROSCOPY TIME: 27 seconds 3 digital radiographic images saved to PACS. LIMITATIONS: None. PROCEDURE: SITE OF PROCEDURE: RIGHT HIP LOCALIZING CONTRAST TYPE AND DOSE: NONE MEDICATION TYPE AND DOSE: 6 ML OF 0.5% BUPIVACAINE SET Using local anesthesia and sterile technique with fluoroscopic guidance, the needle was advanced into the joint. Gentle aspiration of the needle yielded thick synovial fluid, which verified intraarticu lar placement. At this point, the aspirated synovial fluid was placed in a sterile container, sent t o the lab for Gram stain, culture and sensitivity. This was followed by therapeutic injection of the bupivacaine. The needle was removed. There were no immediate complications. Preprocedure pain level: 10/10. Postprocedure pain level: 5/10. IMPRESSION: THERAPEUTIC INJECTION OF THE RIGHT HIP JOINT ABOVE. COMMENT: Patient medication list reviewed: Yes- Quality ID# [id number]:Eligible professional attests to doc umenting in the medical record they obtained, updated, or reviewed the patient's current medications. . Quality ID 145: Final reports for procedures using fluoroscopy that document radiation exposure sarah renuka, or exposure time and number of fluorographic images (if radiation exposure indices are not avail able) TECHNICAL DOCUMENTATION: JOB ID: [id number] [employer]- All Rights Reserved Reading location - IP/workstation name: [email or web address]
[2018-01-18] MEDS: MAGNESIUM OXIDE 400 MG TABLET PO SCH (11:05)
[2018-01-18] MEDS: LEVETIRACETAM 500 MG TABLET PO SCH ×2 (11:05→18:22)
[2018-01-18] MEDS: FOLIC ACID 1 MG TABLET PO SCH (11:06)
[2018-01-18] MEDS: ENOXAPARIN SODIUM INJ 30 MG/0.3 ML DISP.SYRIN SUBCUT SCH (11:08)
[2018-01-18] MEDS: ASPIRIN 81 MG TABLET, ENT COATED PO SCH (11:08)
[2018-01-18] MEDS ORDERED: BUPIVACAINE HCL 0.5%-EPI 1:200000 INJ/PF 30 ML VIAL INJ PRN (11:40)
[2018-01-18 17:02] LABS: ABSOLUTE EOSINOPHILS # (AUTO) 0.2 10^3/uL (0.0-0.6); ABSOLUTE LYMPHOCYTES (AUTO) 1.6 10^3/uL (0.5-4.7); ABSOLUTE MONOCYTES (AUTO) 1.2 10^3/uL (0.1-1.4); ABSOLUTE NEUT (AUTO) 11.4 10^3/uL (1.7-8.2); BASOPHILS % (AUTO) 0.3 % (0-2); EOSINOPHILS % (AUTO) 1.7 % (0-6); HEMATOCRIT 23.2 % (37.9-51.0); LYMPHOCYTES % (AUTO) 11.2 % (13-45); MEAN CORPUSCULAR HGB CONC 33.5 g/dL (32.0-36.0); MEAN CORPUSCULAR VOLUME 90 fl (80-97); MONOCYTES % (AUTO) 8.5 % (3-13); PLATELET COUNT 741 10^3/uL (150-450); RED BLOOD COUNT 2.59 10^6/uL (4.35-5.55); RED CELL DISTRIBUTION WIDTH 15.7 % (11.5-14.0); SEGMENTED NEUTROPHILS % (AUTO) 78.3 % (42-78); TOTAL CELLS COUNTED % (AUTO) 100 %; WHITE BLOOD COUNT 14.6 10^3/uL (4.0-10.5)
[2018-01-18 17:10] LABS: HEMOGLOBIN 7.8 g/dL (13.5-17.0)
[2018-01-18 17:18] LABS: ALANINE AMINOTRANSFERASE 26 U/L (21-72); ALBUMIN 2.5 g/dL (3.5-5.0); ALKALINE PHOSPHATASE 137 U/L (38-126); ANION GAP 6 (5-19); ASPARTATE AMINO TRANSFERASE 23 U/L (17-59); BILIRUBIN,DIRECT 0.4 mg/dL (0.0-0.4); BILIRUBIN,TOTAL 0.4 mg/dL (0.2-1.3); BLOOD UREA NITROGEN 21 mg/dL (7-20); CALCIUM 8.9 mg/dL (8.4-10.2); CARBON DIOXIDE 30 mmol/L (22-30); CHLORIDE 102 mmol/L (98-107); GLUCOSE 118 mg/dL (75-110); POTASSIUM 5.1 mmol/L (3.6-5.0); SODIUM 138.1 mmol/L (137-145)
--- NOTE | 2018-01-18 19:26 | PDOC PROGRESS REPORT ---
Subjective Progress Note for:: 01/18/18 Subjective:: 28-year-old male with long-standing history of sickle cell disease with complaints of right thigh pain. Patient's family at bedside states his pain is significant and has not improved after his most recent therapeutic injection. Current pain 08/10. Minimal relief with fentanyl. Denies fever. Reason For Visit: POSSIBLE SEPSIS,ANEMIA,TACHYCARDIA,HIP PAIN Physical Exam Vital Signs: Temp Pulse Resp BP Pulse Ox 99.4 F 115 H 16 109/65 95 01/18/18 16:32 01/18/18 16:32 01/18/18 16:32 01/18/18 16:32 01/18/18 16:32 Intake & Output 01/17/18 01/18/18 01/19/18 06:59 06:59 06:59 Intake Total 2789 2447 2867 Output Total 3000 2800 1675 Balance -211 -353 1192 Weight 58 kg 56.9 kg General appearance: PRESENT: thin Musculoskeletal exam: PRESENT: other - Right lower extremity: Erythema, swelling and fluctuance. along the lateral aspect of the thigh proximal. Diffuse tenderness throughout the right lower extremity. Compartments soft and compressible. No evidence of knee effusion. Pain with any motion of the hip or knee lower extremity. Results Laboratory Results: 01/18/18 16:49 01/18/18 16:49 01/17/18 01/17/18 01/18/18 21:50 21:50 16:49 WBC 16.1 H 14.6 H RBC 2.72 L 2.59 L Hgb 8.0 L 7.8 L Hct 24.5 L 23.2 L MCV 90 90 MCH 29.3 30.0 MCHC 32.5 33.5 RDW 16.1 H 15.7 H Plt Count 707 H 741 H Seg Neutrophils % 78.3 H Lymphocytes % 11.2 L Monocytes % 8.5 Eosinophils % 1.7 Basophils % 0.3 Absolute Neutrophils 11.4 H Absolute Lymphocytes 1.6 Absolute Monocytes 1.2 Absolute Eosinophils 0.2 Absolute Basophils 0.0 Sodium Potassium Chloride Carbon Dioxide Anion Gap BUN Creatinine 0.46 L Est GFR ( Amer) > 60 Est GFR (Non-Af Amer) > 60 Glucose Calcium Total Bilirubin AST ALT Alkaline Phosphatase Total Protein Albumin 01/18/18 16:49 WBC RBC Hgb Hct MCV MCH MCHC RDW Plt Count Seg Neutrophils % Lymphocytes % Monocytes % Eosinophils % Basophils % Absolute Neutrophils Absolute Lymphocytes Absolute Monocytes Absolute Eosinophils Absolute Basophils Sodium 138.1 Potassium 5.1 H Chloride 102 Carbon Dioxide 30 Anion Gap 6 BUN 21 H Creatinine 0.55 Est GFR ( Amer) > 60 Est GFR (Non-Af Amer) > 60 Glucose 118 H Calcium 8.9 Total Bilirubin 0.4 AST 23 ALT 26 Alkaline Phosphatase 137 H Total Protein 7.0 Albumin 2.5 L Impressions: Chest X-Ray 01/05/18 00:00 IMPRESSION: The left subclavian central venous catheter is projected over the left IJ, tip is beyond the superior margin of the image near the cranial junction. Renal Ultrasound 01/06/18 00:00 IMPRESSION: 1. Mild increased bilateral renal cortical echogenicity. This could be seen with medical renal disease. No hydronephrosis. 2. Echogenic material in the base of the urinary bladder likely represents infectious, inflammatory, or hemorrhagic debris. Correlation with urinalysis recommended. Knee X-Ray 01/14/18 00:00 IMPRESSION: HARDWARE IN THE DISTAL FEMUR. NO ACUTE FINDINGS. Fluoroscopy 01/15/18 00:00 IMPRESSION: SATISFACTORY POSTOPERATIVE PELVIS. Hip X-Ray 01/15/18 00:00 IMPRESSION: SATISFACTORY POSTOPERATIVE PELVIS. Body Scan Nuclear Medicine 01/17/18 08:00 IMPRESSION: Increased uptake at both hips as above. Guidance Fluoroscopy 01/18/18 00:00 IMPRESSION: THERAPEUTIC INJECTION OF THE RIGHT HIP JOINT ABOVE. Hip Aspiration/Injection 01/18/18 00:00 IMPRESSION: THERAPEUTIC INJECTION OF THE RIGHT HIP JOINT ABOVE. Assessment & Plan - Diagnosis (1) Pain of right lower extremity Is this a current diagnosis for this admission?: Yes Plan: Patient has considerable discomfort in his right lower extremity. Bone scan and therapeutic hip injection have failed to provide relief. Initial thoughts were to proceed with a therapeutic knee injection but after examination I feel patient's pain and swelling are likely contributing from his proximal thigh. Under sterile technique aspiration was performed which demonstrated approximately 280 cc of blood tinged cloudy fluid given the amount of blood it is difficult to determine if this is hematoma versus underlying abscess or seroma I have sent for culture and sensitivity. Ultimately patient may require operative intervention including irrigation and debridement of his right thigh. Prior to proceed with operative intervention however I have recommended a CT scan to evaluate for fluid collection. Given his most recent surgery on the left he would not be a candidate for MRI. Patient and family were educated about current treatment plan. Will follow up with CT scan in 24 hours. Procedure note: Right lower extremity was prepped with ChloraPrep and a sterile fashion. 18- gauge needle was injected into the area of fluctuance adjacent and out of the erythematous site 280 cc of blood-tinged cloudy fluid was aspirated from this region. Patient tolerated procedure well. Fluid sent for Gram stain, culture and sensitivity.
--- NOTE | 2018-01-18 20:23 | PDOC PROGRESS REPORT ---
Subjective Progress Note for:: 01/18/18 Subjective:: Patient was seen by orthopedic, he continues to have pain in his left lower extremities, history of sickle cell disease, he had a lidocaine injection into his left hip earlier today, orthopedic also saw patient bloody fluid was aspirated from the thigh Reason For Visit: POSSIBLE SEPSIS,ANEMIA,TACHYCARDIA,HIP PAIN Physical Exam Vital Signs: Temp Pulse Resp BP Pulse Ox 99.4 F 115 H 16 109/65 95 01/18/18 16:32 01/18/18 16:32 01/18/18 16:32 01/18/18 16:32 01/18/18 16:32 Intake & Output 01/17/18 01/18/18 01/19/18 06:59 06:59 06:59 Intake Total 2789 2447 2867 Output Total 3000 2800 1675 Balance -211 -353 1192 Weight 58 kg 56.9 kg General appearance: PRESENT: no acute distress Eye exam: PRESENT: PERRLA Respiratory exam: PRESENT: clear to auscultation ishan Cardiovascular exam: PRESENT: +S1, +S2 GI/Abdominal exam: PRESENT: soft Neurological exam: PRESENT: alert Results Laboratory Results: 01/18/18 16:49 01/18/18 16:49 01/17/18 01/17/18 01/18/18 21:50 21:50 16:49 WBC 16.1 H 14.6 H RBC 2.72 L 2.59 L Hgb 8.0 L 7.8 L Hct 24.5 L 23.2 L MCV 90 90 MCH 29.3 30.0 MCHC 32.5 33.5 RDW 16.1 H 15.7 H Plt Count 707 H 741 H Seg Neutrophils % 78.3 H Lymphocytes % 11.2 L Monocytes % 8.5 Eosinophils % 1.7 Basophils % 0.3 Absolute Neutrophils 11.4 H Absolute Lymphocytes 1.6 Absolute Monocytes 1.2 Absolute Eosinophils 0.2 Absolute Basophils 0.0 Sodium Potassium Chloride Carbon Dioxide Anion Gap BUN Creatinine 0.46 L Est GFR ( Amer) > 60 Est GFR (Non-Af Amer) > 60 Glucose Calcium Total Bilirubin AST ALT Alkaline Phosphatase Total Protein Albumin 01/18/18 16:49 WBC RBC Hgb Hct MCV MCH MCHC RDW Plt Count Seg Neutrophils % Lymphocytes % Monocytes % Eosinophils % Basophils % Absolute Neutrophils Absolute Lymphocytes Absolute Monocytes Absolute Eosinophils Absolute Basophils Sodium 138.1 Potassium 5.1 H Chloride 102 Carbon Dioxide 30 Anion Gap 6 BUN 21 H Creatinine 0.55 Est GFR ( Amer) > 60 Est GFR (Non-Af Amer) > 60 Glucose 118 H Calcium 8.9 Total Bilirubin 0.4 AST 23 ALT 26 Alkaline Phosphatase 137 H Total Protein 7.0 Albumin 2.5 L Impressions: Chest X-Ray 01/05/18 00:00 IMPRESSION: The left subclavian central venous catheter is projected over the left IJ, tip is beyond the superior margin of the image near the cranial junction. Renal Ultrasound 01/06/18 00:00 IMPRESSION: 1. Mild increased bilateral renal cortical echogenicity. This could be seen with medical renal disease. No hydronephrosis. 2. Echogenic material in the base of the urinary bladder likely represents infectious, inflammatory, or hemorrhagic debris. Correlation with urinalysis recommended. Knee X-Ray 01/14/18 00:00 IMPRESSION: HARDWARE IN THE DISTAL FEMUR. NO ACUTE FINDINGS. Fluoroscopy 01/15/18 00:00 IMPRESSION: SATISFACTORY POSTOPERATIVE PELVIS. Hip X-Ray 01/15/18 00:00 IMPRESSION: SATISFACTORY POSTOPERATIVE PELVIS. Body Scan Nuclear Medicine 01/17/18 08:00 IMPRESSION: Increased uptake at both hips as above. Guidance Fluoroscopy 01/18/18 00:00 IMPRESSION: THERAPEUTIC INJECTION OF THE RIGHT HIP JOINT ABOVE. Hip Aspiration/Injection 01/18/18 00:00 IMPRESSION: THERAPEUTIC INJECTION OF THE RIGHT HIP JOINT ABOVE. Assessment & Plan - Diagnosis (1) Sepsis Qualifiers: Sepsis type: sepsis due to unspecified organism Qualified Code(s): A41.9 - Sepsis, unspecified organism Is this a current diagnosis for this admission?: Yes (2) Acute kidney injury Is this a current diagnosis for this admission?: Yes (3) Sickle cell anemia Qualifiers: Sickle-cell associated disorders: without crisis Qualified Code(s): D57.1 - 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 Is this a current diagnosis for this admission?: Yes (4) Abscess of left hip Is this a current diagnosis for this admission?: Yes (5) Sacral decubitus ulcer Qualifiers: Pressure ulcer stage: stage 2 Qualified Code(s): L89.152 - Pressure ulcer of sacral region, stage 2 Is this a current diagnosis for this admission?: Yes (6) Staphylococcus aureus septicemia Is this a current diagnosis for this admission?: Yes (7) Dislocation of internal left hip prosthesis, initial encounter Is this a current diagnosis for this admission?: Yes
--- NOTE | 2018-01-18 21:29 | RADIOLOGY REPORT (SQ) ---
EXAM DESCRIPTION: CT RT LOWER EXTREMITY WITH COMPLETED DATE/TIME: 01/18/2018 8:42 pm REASON FOR STUDY: Abscess vs. 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 TECHNIQUE: Postcontrast axial imaging performed through the right thigh with reformatted coronal and sagittal imaging windowed for bone and soft tissues. Images saved to PACS. 3D IMAGING: Were 3D images as MIP, SSD, or volume rendering performed at the work station? No All CT scanners at this facility use dose modulation, iterative reconstruction, and/or weight based d osing when appropriate to reduce radiation dose to as low as reasonably achievable (ALARA). [facility]: Dose Right [facility]: CareDose [facility]: Dose Right [facility]: Teradose 4D [facility]: QReca! CONTRAST TYPE AND DOSE: contrast/concentration: Isovue 370.00 mg/ml; Total Contrast Delivered: 50.0 ml; Total Saline Delivered: 28.4 ml RENAL FUNCTION: GFR > 60. LIMITATIONS: Limited by positioning difficulties and extensive beam hardening artifact related to fe moral instrumentation. RADIATION DOSE: CT Rad equipment meets quality standard of care and radiation dose reduction techniq ues were employed. CTDIvol: 4.1 mGy. DLP: 219 mGy-cm.mGy. FINDINGS: SOFT TISSUES: There is an ovoid collection throughout the posterior thigh musculature whic h has density which is slightly lower than the adjacent musculature. This is well-circumscribed with probable peripheral enhancing rim. This collection measures at least 2 x 9 cm AP by transverse and extends along the length of the thigh close to 22 cm. Inferiorly, there is suggestion of focal gas w ithin the collection. Concerning for abscess. BONES: Osteopenic. No gross fracture. MINERALIZATION: Normal. ENHANCEMENT: As above. OTHER: No other significant finding. IMPRESSION: 1. Peripherally enhancing collection throughout the posterior thigh compartment measures up to 22 cm in craniocaudal extent. The presence of gas within likely reflects infection/abscess un less there has been recent attempted aspiration or other surgical procedure in the area. TECHNICAL DOCUMENTATION: JOB ID: [id number] Quality ID # [id number]: Final reports with documentation of one or more dose reduction techniques (e.g., Au tomated exposure control, adjustment of the mA and/or kV according to patient size, use of iterative reconstruction technique) 2010 [employer]- All Rights Reserved Reading location - IP/workstation name: [email or web address]
[2018-01-18] MEDS: CEFTRIAXONE SODIUM 1,000 MG in NORMAL SALINE 100 ML IV SCH (21:50)
[2018-01-19] MEDS: HYDROMORPHONE HCL INJ/PF 2 MG/ML AMPULE IV PRN ×5 (01:38→21:24)
[2018-01-19] MEDS: OXYCODONE-ACETAMINOPHEN 5-325 MG TABLET PO PRN ×4 (04:22→22:20)
[2018-01-19] MEDS: FENTANYL CITRATE INJ/PF 100 MCG/2 ML AMPUL IV PRN ×3 (04:48→14:06)
[2018-01-19] MEDS: DEXTROSE 5%-NORMAL SALINE 1,000 ML IV PRN ×2 (05:49→22:21)
[2018-01-19 07:26] LABS: ABSOLUTE BASOPHILS # (AUTO) 0.2 10^3/uL (0.0-0.2); ABSOLUTE EOSINOPHILS # (AUTO) 0.3 10^3/uL (0.0-0.6); ABSOLUTE LYMPHOCYTES (AUTO) 1.4 10^3/uL (0.5-4.7); ABSOLUTE MONOCYTES (AUTO) 1.6 10^3/uL (0.1-1.4); ABSOLUTE NEUT (AUTO) 13.8 10^3/uL (1.7-8.2); BASOPHILS % (AUTO) 1.4 % (0-2); EOSINOPHILS % (AUTO) 1.5 % (0-6); HEMATOCRIT 25.5 % (37.9-51.0); HEMOGLOBIN 8.2 g/dL (13.5-17.0); LYMPHOCYTES % (AUTO) 8.1 % (13-45); MEAN CORPUSCULAR HEMOGLOBIN 29.4 pg (27.0-33.4); MEAN CORPUSCULAR HGB CONC 32.2 g/dL (32.0-36.0); MEAN CORPUSCULAR VOLUME 91 fl (80-97); MONOCYTES % (AUTO) 9.1 % (3-13); PLATELET COUNT 692 10^3/uL (150-450); RED CELL DISTRIBUTION WIDTH 16.3 % (11.5-14.0); SEGMENTED NEUTROPHILS % (AUTO) 79.9 % (42-78); TOTAL CELLS COUNTED % (AUTO) 100 %; WHITE BLOOD COUNT 17.2 10^3/uL (4.0-10.5)
[2018-01-19 07:46] LABS: ALANINE AMINOTRANSFERASE 26 U/L (21-72); ALBUMIN 2.7 g/dL (3.5-5.0); ALKALINE PHOSPHATASE 148 U/L (38-126); ANION GAP 10 (5-19); ASPARTATE AMINO TRANSFERASE 21 U/L (17-59); BILIRUBIN,DIRECT 0.3 mg/dL (0.0-0.4); BILIRUBIN,TOTAL 0.7 mg/dL (0.2-1.3); BLOOD UREA NITROGEN 18 mg/dL (7-20); CALCIUM 9.2 mg/dL (8.4-10.2); CARBON DIOXIDE 28 mmol/L (22-30); CHLORIDE 102 mmol/L (98-107); GLUCOSE 101 mg/dL (75-110); POTASSIUM 4.9 mmol/L (3.6-5.0); SODIUM 140.3 mmol/L (137-145); TOTAL PROTEIN 6.9 g/dL (6.3-8.2)
[2018-01-19] MEDS: LEVETIRACETAM 500 MG TABLET PO SCH ×2 (10:47→17:20)
[2018-01-19] MEDS: MAGNESIUM OXIDE 400 MG TABLET PO SCH (10:49)
[2018-01-19] MEDS: FOLIC ACID 1 MG TABLET PO SCH (10:49)
[2018-01-19] MEDS: ASPIRIN 81 MG TABLET, ENT COATED PO SCH (10:49)
[2018-01-19] MEDS: ENOXAPARIN SODIUM INJ 30 MG/0.3 ML DISP.SYRIN SUBCUT SCH (10:49)
[2018-01-19] MEDS ORDERED: BACITRACIN INJ 50,000 UNIT VIAL ONE (12:22)
[2018-01-19] MEDS ORDERED: BUPIVACAINE HCL 0.5 % INJ/PF 30 ML SDV ONE (12:22)
[2018-01-19] MEDS ORDERED: LIDOCAINE 1% INJ-PF (10 MG/ML) 30 ML SDV ONE (12:22)
[2018-01-19] MEDS ORDERED: SUCCINYLCHOLINE CHLORIDE INJ 200 MG/10 ML VIAL ONE (15:02)
[2018-01-19] MEDS ORDERED: LIDOCAINE 2% INJ-PF (20 MG/ML) 2 ML AMPUL ONE (15:02)
[2018-01-19] MEDS ORDERED: PROMETHAZINE HCL INJ 25 MG/1 ML VIAL IV PRN (19:11)
[2018-01-19] MEDS ORDERED: FENTANYL CITRATE INJ/PF 100 MCG/2 ML AMPUL IV PRN ×3 (19:11)
[2018-01-19] MEDS ORDERED: ONDANSETRON HCL INJ/PF 4 MG/2 ML SDV IV PRN (19:11)
[2018-01-19] MEDS ORDERED: DIPHENHYDRAMINE HCL 50 MG/ML VIAL IV PRN (19:11)
--- NOTE | 2018-01-19 19:44 | PDOC PROGRESS REPORT ---
Subjective Subjective:: 28-year-old male with long-standing history of sickle cell disease with complaints of right thigh pain. Patient's family at bedside states his pain is significant and has not improved after his most recent therapeutic injection. Current pain 08/10. Minimal relief with fentanyl. Denies fever. Reason For Visit: POSSIBLE SEPSIS,ANEMIA,TACHYCARDIA,HIP PAIN Physical Exam Vital Signs: Temp Pulse Resp BP Pulse Ox 98.6 F 108 H 16 111/65 96 01/19/18 16:27 01/19/18 16:27 01/19/18 16:27 01/19/18 16:27 01/19/18 16:27 Intake & Output 01/18/18 01/19/18 01/20/18 06:59 06:59 06:59 Intake Total 2447 4154 3840 Output Total 2800 3075 3440 Balance -353 1079 400 Weight 56.9 kg 56.7 kg Musculoskeletal exam: PRESENT: other - Right hip: Palpable fluctuance along the lateral aspect of the with tenderness palpation. Increased warmth. No evidence of knee effusion. Pain with motion of the right lower extremity. Intact plantar flexion/dorsiflexion. Cap refill less than 2 seconds. Results Laboratory Results: 01/19/18 06:30 01/19/18 06:30 01/19/18 01/19/18 06:30 06:30 WBC 17.2 H RBC 2.80 L Hgb 8.2 L Hct 25.5 L MCV 91 MCH 29.4 MCHC 32.2 RDW 16.3 H Plt Count 692 H Seg Neutrophils % 79.9 H Lymphocytes % 8.1 L Monocytes % 9.1 Eosinophils % 1.5 Basophils % 1.4 Absolute Neutrophils 13.8 H Absolute Lymphocytes 1.4 Absolute Monocytes 1.6 H Absolute Eosinophils 0.3 Absolute Basophils 0.2 Sodium 140.3 Potassium 4.9 Chloride 102 Carbon Dioxide 28 Anion Gap 10 BUN 18 Creatinine 0.46 L Est GFR ( Amer) > 60 Est GFR (Non-Af Amer) > 60 Glucose 101 Calcium 9.2 Total Bilirubin 0.7 AST 21 ALT 26 Alkaline Phosphatase 148 H Total Protein 6.9 Albumin 2.7 L Impressions: Chest X-Ray 01/05/18 00:00 IMPRESSION: The left subclavian central venous catheter is projected over the left IJ, tip is beyond the superior margin of the image near the cranial junction. Renal Ultrasound 01/06/18 00:00 IMPRESSION: 1. Mild increased bilateral renal cortical echogenicity. This could be seen with medical renal disease. No hydronephrosis. 2. Echogenic material in the base of the urinary bladder likely represents infectious, inflammatory, or hemorrhagic debris. Correlation with urinalysis recommended. Knee X-Ray 01/14/18 00:00 IMPRESSION: HARDWARE IN THE DISTAL FEMUR. NO ACUTE FINDINGS. Fluoroscopy 01/15/18 00:00 IMPRESSION: SATISFACTORY POSTOPERATIVE PELVIS. Hip X-Ray 01/15/18 00:00 IMPRESSION: SATISFACTORY POSTOPERATIVE PELVIS. Body Scan Nuclear Medicine 01/17/18 08:00 IMPRESSION: Increased uptake at both hips as above. Guidance Fluoroscopy 01/18/18 00:00 IMPRESSION: THERAPEUTIC INJECTION OF THE RIGHT HIP JOINT ABOVE. Hip Aspiration/Injection 01/18/18 00:00 IMPRESSION: THERAPEUTIC INJECTION OF THE RIGHT HIP JOINT ABOVE. Lower Extremity CT 01/18/18 00:00 IMPRESSION: 1. Peripherally enhancing collection throughout the posterior thigh compartment measures up to 22 cm in craniocaudal extent. The presence of gas within likely reflects infection/abscess unless there has been recent attempted aspiration or other surgical procedure in the area. Assessment & Plan - Diagnosis (1) Pain of right lower extremity Is this a current diagnosis for this admission?: Yes (2) Abscess of right thigh Is this a current diagnosis for this admission?: Yes Plan: Patient's findings on CT scan have been reviewed which are consistent with likely underlying abscess within the deep posterior compartment. Given these findings I have recommended operative intervention. Risks and benefits of the surgical procedure have been explained to the patient and family risks including neurovascular risk, recurrent infection, need for future surgical intervention, bleeding and any unforeseen complication. Patient and family have verbalized understanding consented for the procedure.
--- NOTE | 2018-01-19 19:49 | Operative Report ---
Operative Report DATE OF SURGERY: 01/19/18 PREOPERATIVE DIAGNOSIS: Right thigh abscess POSTOPERATIVE DIAGNOSIS: Same OPERATION: Irrigation and debridement deep compartment right thigh SURGEON: CACHORRO NGUYỄN ANESTHESIA: GA TISSUE REMOVED OR ALTERED: Cultures to microbiology COMPLICATIONS: None ESTIMATED BLOOD LOSS: 75cc PROCEDURE: Indication for above procedure: 28-year-old male with long-standing history of sickle cell disease. Patient was admitted for left periprosthetic fracture. Over the past few days he has increased pain in his right lower extremity. Yesterday aspiration was performed demonstrating cloudy appearing material and a CT scan was done consistent with possible abscess. I discussed treatment options with the patient and family verbalized understanding consented for the procedure. Procedure in detail: Patient seen identified in the preoperative holding area right lower extremity initialized and marked. Patient currently receiving Rocephin scheduled. Patient was then taken to the operating transfer the operative table and placed under general anesthesia was adequately anesthetized patient was placed in a pseudo-lateral position bilateral lower extremities were carefully padded and the right upper extremities placed in a neutral position. Right lower extremity was was prepped with ChloraPrep and draped in a sterile fashion. Timeout was done identifying correct patient, extremity and procedure everyone in attendance given his verbalized no concerns. Longitudinal skin incision was made along the lateral aspect of the thigh blunt dissection was performed and the iliotibial band fascia identified and incised. Once I entered the compartment deep to the iliotibial band fascia significant amount of purulent/cloudy blood-tinged fluid was expressed. Once this was decompressed cultures were obtained. The area was copiously irrigated with 3 L of Pulsavac with bacitracin. Blunt dissection demonstrated no evidence of tracking proximally from the hardware. No evidence of defect within the vastus lateralis to suggest underlying implant infection. Definitive source was not determined at this time. An additional 1 L of saline without bacitracin was then irrigated. 2 large Pastor drains were placed one posteriorly superior 1 posterior inferior. The iliotibial band fascia was closed with interrupted 0 PDS suture. Subcutaneous tissues closed with interrupted 3-0 Monocryl suture. Skin was closed with sydney. Xeroform and soft dressing was placed. Sponge counts, instrument counts, needle counts counts were correct. Patient was then awoken from anesthesia. Transferred from the operating room table to the operating room stretcher. There was no intraoperative complications patient tolerated procedure well stable to PACU. Postoperative plan: We will continue IV antibiotics unless cultures indicate alternative bacteria.
[2018-01-19] MEDS ORDERED: KETAMINE HCL INJ 500 MG/10 ML VIAL ONE (19:55)
[2018-01-19] MEDS ORDERED: PROPOFOL INJ 200 MG/20 ML VIAL IV ONE (19:56)
[2018-01-19] MEDS ORDERED: FENTANYL CITRATE INJ/PF 100 MCG/2 ML AMPUL ONE (19:56)
[2018-01-19] MEDS ORDERED: MIDAZOLAM 2 MG/2 ML INJ ONE (19:56)
--- NOTE | 2018-01-19 20:19 | PDOC PROGRESS REPORT ---
Subjective Progress Note for:: 01/19/18 Subjective:: Patient was taken to the OR today by the orthopedic surgeon for incision and drainage of the right thigh abscess. Discussed plan of care with patient's uncle , patient continued to receive appropriate care, he has sickle cell disease with staph aureus septicemia with potential for septic embolization especially in this patient with sickle cell disease.I explained to the family that is not uncommon for patient to have septic emboli in the distant site from the original source of infection especially with septicemia Reason For Visit: POSSIBLE SEPSIS,ANEMIA,TACHYCARDIA,HIP PAIN Physical Exam Vital Signs: Temp Pulse Resp BP Pulse Ox 98.4 F 104 H 14 113/66 100 01/19/18 19:41 01/19/18 19:56 01/19/18 19:56 01/19/18 19:56 01/19/18 19:56 Intake & Output 01/18/18 01/19/18 01/20/18 06:59 06:59 06:59 Intake Total 2447 4154 3840 Output Total 2800 3075 3800 Balance -353 1079 40 Weight 56.9 kg 56.7 kg General appearance: PRESENT: no acute distress Eye exam: PRESENT: PERRLA Respiratory exam: PRESENT: clear to auscultation ishan Cardiovascular exam: PRESENT: +S1, +S2 GI/Abdominal exam: PRESENT: soft Neurological exam: PRESENT: alert Results Laboratory Results: 01/19/18 06:30 01/19/18 06:30 01/19/18 01/19/18 06:30 06:30 WBC 17.2 H RBC 2.80 L Hgb 8.2 L Hct 25.5 L MCV 91 MCH 29.4 MCHC 32.2 RDW 16.3 H Plt Count 692 H Seg Neutrophils % 79.9 H Lymphocytes % 8.1 L Monocytes % 9.1 Eosinophils % 1.5 Basophils % 1.4 Absolute Neutrophils 13.8 H Absolute Lymphocytes 1.4 Absolute Monocytes 1.6 H Absolute Eosinophils 0.3 Absolute Basophils 0.2 Sodium 140.3 Potassium 4.9 Chloride 102 Carbon Dioxide 28 Anion Gap 10 BUN 18 Creatinine 0.46 L Est GFR ( Amer) > 60 Est GFR (Non-Af Amer) > 60 Glucose 101 Calcium 9.2 Total Bilirubin 0.7 AST 21 ALT 26 Alkaline Phosphatase 148 H Total Protein 6.9 Albumin 2.7 L Impressions: Chest X-Ray 01/05/18 00:00 IMPRESSION: The left subclavian central venous catheter is projected over the left IJ, tip is beyond the superior margin of the image near the cranial junction. Renal Ultrasound 01/06/18 00:00 IMPRESSION: 1. Mild increased bilateral renal cortical echogenicity. This could be seen with medical renal disease. No hydronephrosis. 2. Echogenic material in the base of the urinary bladder likely represents infectious, inflammatory, or hemorrhagic debris. Correlation with urinalysis recommended. Knee X-Ray 01/14/18 00:00 IMPRESSION: HARDWARE IN THE DISTAL FEMUR. NO ACUTE FINDINGS. Fluoroscopy 01/15/18 00:00 IMPRESSION: SATISFACTORY POSTOPERATIVE PELVIS. Hip X-Ray 01/15/18 00:00 IMPRESSION: SATISFACTORY POSTOPERATIVE PELVIS. Body Scan Nuclear Medicine 01/17/18 08:00 IMPRESSION: Increased uptake at both hips as above. Guidance Fluoroscopy 01/18/18 00:00 IMPRESSION: THERAPEUTIC INJECTION OF THE RIGHT HIP JOINT ABOVE. Hip Aspiration/Injection 01/18/18 00:00 IMPRESSION: THERAPEUTIC INJECTION OF THE RIGHT HIP JOINT ABOVE. Lower Extremity CT 01/18/18 00:00 IMPRESSION: 1. Peripherally enhancing collection throughout the posterior thigh compartment measures up to 22 cm in craniocaudal extent. The presence of gas within likely reflects infection/abscess unless there has been recent attempted aspiration or other surgical procedure in the area. Assessment & Plan - Diagnosis (1) Sepsis Qualifiers: Sepsis type: sepsis due to unspecified organism Qualified Code(s): A41.9 - Sepsis, unspecified organism Is this a current diagnosis for this admission?: Yes (2) Acute kidney injury Is this a current diagnosis for this admission?: Yes (3) Sickle cell anemia Qualifiers: Sickle-cell associated disorders: without crisis Qualified Code(s): D57.1 - 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 Is this a current diagnosis for this admission?: Yes (4) Abscess of left hip Is this a current diagnosis for this admission?: Yes (5) Sacral decubitus ulcer Qualifiers: Pressure ulcer stage: stage 2 Qualified Code(s): L89.152 - Pressure ulcer of sacral region, stage 2 Is this a current diagnosis for this admission?: Yes (6) Staphylococcus aureus septicemia Is this a current diagnosis for this admission?: Yes (7) Dislocation of internal left hip prosthesis, initial encounter Is this a current diagnosis for this admission?: Yes (8) Abscess of right thigh Is this a current diagnosis for this admission?: Yes - Plan Summary Plan Summary: Continue IV antibiotic
[2018-01-19] MEDS: CEFTRIAXONE SODIUM 1,000 MG in NORMAL SALINE 100 ML IV SCH (22:20)
[2018-01-20] MEDS: FENTANYL CITRATE INJ/PF 100 MCG/2 ML AMPUL IV PRN ×2 (00:08→05:37)
[2018-01-20] MEDS: HYDROMORPHONE HCL INJ/PF 2 MG/ML AMPULE IV PRN ×4 (01:32→20:09)
[2018-01-20] MEDS: OXYCODONE-ACETAMINOPHEN 5-325 MG TABLET PO PRN ×5 (02:45→23:29)
[2018-01-20] MEDS: ENOXAPARIN SODIUM INJ 30 MG/0.3 ML DISP.SYRIN SUBCUT SCH (10:11)
[2018-01-20] MEDS: LEVETIRACETAM 500 MG TABLET PO SCH ×2 (10:12→18:13)
[2018-01-20] MEDS: FOLIC ACID 1 MG TABLET PO SCH (10:12)
[2018-01-20] MEDS: ASPIRIN 81 MG TABLET, ENT COATED PO SCH (10:12)
[2018-01-20] MEDS: MAGNESIUM OXIDE 400 MG TABLET PO SCH (10:12)
--- NOTE | 2018-01-20 20:16 | PDOC PROGRESS REPORT ---
Subjective Progress Note for:: 01/20/18 Subjective:: Pain adequately controlled. Worked with therapy today. Drain still in place. Reason For Visit: POSSIBLE SEPSIS,ANEMIA,TACHYCARDIA,HIP PAIN Physical Exam Vital Signs: Temp Pulse Resp BP Pulse Ox 36.8 C 112 H 18 104/54 L 99 01/20/18 16:35 01/20/18 16:35 01/20/18 16:35 01/20/18 16:35 01/20/18 16:35 Intake & Output 01/19/18 01/20/18 01/21/18 06:59 06:59 06:59 Intake Total 4154 4707 1989 Output Total 3075 4600 875 Balance 0667 304 8355 Weight 56.7 kg Results Laboratory Results: 01/19/18 06:30 01/19/18 06:30 Impressions: Chest X-Ray 01/05/18 00:00 IMPRESSION: The left subclavian central venous catheter is projected over the left IJ, tip is beyond the superior margin of the image near the cranial junction. Renal Ultrasound 01/06/18 00:00 IMPRESSION: 1. Mild increased bilateral renal cortical echogenicity. This could be seen with medical renal disease. No hydronephrosis. 2. Echogenic material in the base of the urinary bladder likely represents infectious, inflammatory, or hemorrhagic debris. Correlation with urinalysis recommended. Knee X-Ray 01/14/18 00:00 IMPRESSION: HARDWARE IN THE DISTAL FEMUR. NO ACUTE FINDINGS. Fluoroscopy 01/15/18 00:00 IMPRESSION: SATISFACTORY POSTOPERATIVE PELVIS. Hip X-Ray 01/15/18 00:00 IMPRESSION: SATISFACTORY POSTOPERATIVE PELVIS. Body Scan Nuclear Medicine 01/17/18 08:00 IMPRESSION: Increased uptake at both hips as above. Guidance Fluoroscopy 01/18/18 00:00 IMPRESSION: THERAPEUTIC INJECTION OF THE RIGHT HIP JOINT ABOVE. Hip Aspiration/Injection 01/18/18 00:00 IMPRESSION: THERAPEUTIC INJECTION OF THE RIGHT HIP JOINT ABOVE. Lower Extremity CT 01/18/18 00:00 IMPRESSION: 1. Peripherally enhancing collection throughout the posterior thigh compartment measures up to 22 cm in craniocaudal extent. The presence of gas within likely reflects infection/abscess unless there has been recent attempted aspiration or other surgical procedure in the area. Assessment & Plan - Plan Summary Plan Summary: 28-year-old status post I&D of the right buttocks and thigh. Continue drains IV antibiotics. Awaiting cultures. Past tolerated.
[2018-01-20] MEDS: DEXTROSE 5%-NORMAL SALINE 1,000 ML IV PRN (20:24)
--- NOTE | 2018-01-20 21:37 | PDOC PROGRESS REPORT ---
Subjective Progress Note for:: 01/20/18 Subjective:: Patient seen by the bedside, he has less pain today, status post I&D of the right thigh ,drains in place Reason For Visit: POSSIBLE SEPSIS,ANEMIA,TACHYCARDIA,HIP PAIN Physical Exam Vital Signs: Temp Pulse Resp BP Pulse Ox 98.6 F 122 H 16 114/64 99 01/20/18 20:02 01/20/18 20:02 01/20/18 20:02 01/20/18 20:02 01/20/18 20:02 Intake & Output 01/19/18 01/20/18 01/21/18 06:59 06:59 06:59 Intake Total 4154 4707 1990 Output Total 3075 4600 875 Balance 1474 172 9035 Weight 56.7 kg General appearance: PRESENT: no acute distress Eye exam: PRESENT: PERRLA Respiratory exam: PRESENT: clear to auscultation ishan Cardiovascular exam: PRESENT: +S1, +S2 GI/Abdominal exam: PRESENT: soft Neurological exam: PRESENT: alert, CN II-XII grossly intact Results Laboratory Results: 01/19/18 06:30 01/19/18 06:30 Impressions: Chest X-Ray 01/05/18 00:00 IMPRESSION: The left subclavian central venous catheter is projected over the left IJ, tip is beyond the superior margin of the image near the cranial junction. Renal Ultrasound 01/06/18 00:00 IMPRESSION: 1. Mild increased bilateral renal cortical echogenicity. This could be seen with medical renal disease. No hydronephrosis. 2. Echogenic material in the base of the urinary bladder likely represents infectious, inflammatory, or hemorrhagic debris. Correlation with urinalysis recommended. Knee X-Ray 01/14/18 00:00 IMPRESSION: HARDWARE IN THE DISTAL FEMUR. NO ACUTE FINDINGS. Fluoroscopy 01/15/18 00:00 IMPRESSION: SATISFACTORY POSTOPERATIVE PELVIS. Hip X-Ray 01/15/18 00:00 IMPRESSION: SATISFACTORY POSTOPERATIVE PELVIS. Body Scan Nuclear Medicine 01/17/18 08:00 IMPRESSION: Increased uptake at both hips as above. Guidance Fluoroscopy 01/18/18 00:00 IMPRESSION: THERAPEUTIC INJECTION OF THE RIGHT HIP JOINT ABOVE. Hip Aspiration/Injection 01/18/18 00:00 IMPRESSION: THERAPEUTIC INJECTION OF THE RIGHT HIP JOINT ABOVE. Lower Extremity CT 01/18/18 00:00 IMPRESSION: 1. Peripherally enhancing collection throughout the posterior thigh compartment measures up to 22 cm in craniocaudal extent. The presence of gas within likely reflects infection/abscess unless there has been recent attempted aspiration or other surgical procedure in the area. Assessment & Plan - Diagnosis (1) Sepsis Qualifiers: Sepsis type: sepsis due to unspecified organism Qualified Code(s): A41.9 - Sepsis, unspecified organism Is this a current diagnosis for this admission?: Yes (2) Acute kidney injury Is this a current diagnosis for this admission?: Yes (3) Sickle cell anemia Qualifiers: Sickle-cell associated disorders: without crisis Qualified Code(s): D57.1 - 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 Is this a current diagnosis for this admission?: Yes (4) Abscess of left hip Is this a current diagnosis for this admission?: Yes (5) Sacral decubitus ulcer Qualifiers: Pressure ulcer stage: stage 2 Qualified Code(s): L89.152 - Pressure ulcer of sacral region, stage 2 Is this a current diagnosis for this admission?: Yes (6) Staphylococcus aureus septicemia Is this a current diagnosis for this admission?: Yes (7) Dislocation of internal left hip prosthesis, initial encounter Is this a current diagnosis for this admission?: Yes (8) Abscess of right thigh Is this a current diagnosis for this admission?: Yes - Plan Summary Plan Summary: Continue IV therapy
[2018-01-21] MEDS: FENTANYL CITRATE INJ/PF 100 MCG/2 ML AMPUL IV PRN ×4 (01:23→15:56)
[2018-01-21] MEDS: DEXTROSE 5%-NORMAL SALINE 1,000 ML IV PRN ×3 (03:37→23:04)
[2018-01-21] MEDS: OXYCODONE-ACETAMINOPHEN 5-325 MG TABLET PO PRN ×5 (03:37→22:21)
[2018-01-21 07:56] LABS: ABSOLUTE BASOPHILS # (AUTO) 0.2 10^3/uL (0.0-0.2); ABSOLUTE EOSINOPHILS # (AUTO) 0.5 10^3/uL (0.0-0.6); ABSOLUTE LYMPHOCYTES (AUTO) 1.6 10^3/uL (0.5-4.7); ABSOLUTE MONOCYTES (AUTO) 1.2 10^3/uL (0.1-1.4); ABSOLUTE NEUT (AUTO) 9.6 10^3/uL (1.7-8.2); BASOPHILS % (AUTO) 1.3 % (0-2); EOSINOPHILS % (AUTO) 3.9 % (0-6); HEMATOCRIT 20.4 % (37.9-51.0); LYMPHOCYTES % (AUTO) 12.2 % (13-45); MEAN CORPUSCULAR HEMOGLOBIN 29.6 pg (27.0-33.4); MEAN CORPUSCULAR HGB CONC 32.2 g/dL (32.0-36.0); MEAN CORPUSCULAR VOLUME 92 fl (80-97); MONOCYTES % (AUTO) 8.9 % (3-13); PLATELET COUNT 665 10^3/uL (150-450); RED BLOOD COUNT 2.23 10^6/uL (4.35-5.55); RED CELL DISTRIBUTION WIDTH 16.4 % (11.5-14.0); SEGMENTED NEUTROPHILS % (AUTO) 73.7 % (42-78); TOTAL CELLS COUNTED % (AUTO) 100 %
[2018-01-21 07:59] LABS: BLOOD UREA NITROGEN 12 mg/dL (7-20); GLUCOSE 87 mg/dL (75-110); POTASSIUM 4.9 mmol/L (3.6-5.0)
[2018-01-21 08:05] LABS: CARBON DIOXIDE 34 mmol/L (22-30); CHLORIDE 104 mmol/L (98-107); HEMOGLOBIN 6.6 g/dL (13.5-17.0); SODIUM 140.5 mmol/L (137-145)
[2018-01-21 08:07] LABS: ANION GAP 3 (5-19)
[2018-01-21] MEDS: MAGNESIUM OXIDE 400 MG TABLET PO SCH (11:28)
[2018-01-21] MEDS: LEVETIRACETAM 500 MG TABLET PO SCH ×2 (11:28→18:26)
[2018-01-21] MEDS: ENOXAPARIN SODIUM INJ 30 MG/0.3 ML DISP.SYRIN SUBCUT SCH (11:29)
[2018-01-21] MEDS: ASPIRIN 81 MG TABLET, ENT COATED PO SCH (11:29)
[2018-01-21] MEDS: FOLIC ACID 1 MG TABLET PO SCH (11:29)
[2018-01-21] MEDS: HYDROMORPHONE HCL INJ/PF 2 MG/ML AMPULE IV PRN ×2 (14:22→21:00)
--- NOTE | 2018-01-21 15:56 | PDOC PROGRESS REPORT ---
Subjective Progress Note for:: 01/21/18 Subjective:: Patient seen at bedside. Currently comfortable. States preoperative discomfort has significantly improved. Does not complain of leg pain. Begin physical therapy today. Denies fever chills or sweats. Has been ordered PRBCs due to anemia. Reason For Visit: POSSIBLE SEPSIS,ANEMIA,TACHYCARDIA,HIP PAIN Physical Exam Vital Signs: Temp Pulse Resp BP Pulse Ox 98.0 F 100 18 106/64 99 01/21/18 15:52 01/21/18 15:52 01/21/18 15:52 01/21/18 15:52 01/21/18 15:52 Intake & Output 01/20/18 01/21/18 01/22/18 06:59 06:59 06:59 Intake Total 4707 3895 1585 Output Total 4600 1550 760 Balance 107 2345 825 Musculoskeletal exam: PRESENT: other - Right lower extremity: Dressing clean/dry /intact no erythema or drainage. Serosanguineous drainage within the MARIA INES's. Intact plantar flexion/dorsiflexion. No knee effusion. No pain with range of motion or palpation. Intact plantar flexion/dorsiflexion. Results Laboratory Results: 01/21/18 06:45 01/21/18 06:45 01/21/18 01/21/18 01/21/18 06:45 06:45 08:52 WBC 13.0 H RBC 2.23 L Hgb 6.6 L Hct 20.4 L MCV 92 MCH 29.6 MCHC 32.2 RDW 16.4 H Plt Count 665 H Seg Neutrophils % 73.7 Lymphocytes % 12.2 L Monocytes % 8.9 Eosinophils % 3.9 Basophils % 1.3 Absolute Neutrophils 9.6 H Absolute Lymphocytes 1.6 Absolute Monocytes 1.2 Absolute Eosinophils 0.5 Absolute Basophils 0.2 Sodium 140.5 Potassium 4.9 Chloride 104 Carbon Dioxide 34 H Anion Gap 3 L BUN 12 Creatinine 0.42 L Est GFR ( Amer) > 60 Est GFR (Non-Af Amer) > 60 Glucose 87 Calcium 9.0 Blood Type A POSITIVE Antibody Screen NEGATIVE 01/18/18 10:30 Hip - Joint Gram Stain - Final 01/18/18 10:30 Hip - Joint Body Fluid Culture - Final NO AEROBIC OR ANAEROBIC ORGANISMS RECOVERED 01/18/18 19:45 Hip - Right Gram Stain - Final 01/18/18 19:45 Hip - Right Body Fluid Culture - Final NO AEROBIC OR ANAEROBIC ORGANISMS RECOVERED Impressions: Chest X-Ray 01/05/18 00:00 IMPRESSION: The left subclavian central venous catheter is projected over the left IJ, tip is beyond the superior margin of the image near the cranial junction. Renal Ultrasound 01/06/18 00:00 IMPRESSION: 1. Mild increased bilateral renal cortical echogenicity. This could be seen with medical renal disease. No hydronephrosis. 2. Echogenic material in the base of the urinary bladder likely represents infectious, inflammatory, or hemorrhagic debris. Correlation with urinalysis recommended. Knee X-Ray 01/14/18 00:00 IMPRESSION: HARDWARE IN THE DISTAL FEMUR. NO ACUTE FINDINGS. Fluoroscopy 01/15/18 00:00 IMPRESSION: SATISFACTORY POSTOPERATIVE PELVIS. Hip X-Ray 01/15/18 00:00 IMPRESSION: SATISFACTORY POSTOPERATIVE PELVIS. Body Scan Nuclear Medicine 01/17/18 08:00 IMPRESSION: Increased uptake at both hips as above. Guidance Fluoroscopy 01/18/18 00:00 IMPRESSION: THERAPEUTIC INJECTION OF THE RIGHT HIP JOINT ABOVE. Hip Aspiration/Injection 01/18/18 00:00 IMPRESSION: THERAPEUTIC INJECTION OF THE RIGHT HIP JOINT ABOVE. Lower Extremity CT 01/18/18 00:00 IMPRESSION: 1. Peripherally enhancing collection throughout the posterior thigh compartment measures up to 22 cm in craniocaudal extent. The presence of gas within likely reflects infection/abscess unless there has been recent attempted aspiration or other surgical procedure in the area. Assessment & Plan - Diagnosis (1) Pain of right lower extremity Is this a current diagnosis for this admission?: Yes (2) Abscess of right thigh Is this a current diagnosis for this admission?: Yes Plan: Postop day #3 status post I&D right thigh abscess 1. cultures demonstrate staph aureus consistent with previous culture results from various areas will continue current IV antibiotics 2. Continue MARIA INES drains until drainage less than 10 cc. 3. Acute on chronic blood loss anemia. Patient received PRBCs today. 4 continue physical therapy as per hip precautions..
[2018-01-21 18:41] LABS: HEMATOCRIT 23.8 % (37.9-51.0); MEAN CORPUSCULAR HGB CONC 33.2 g/dL (32.0-36.0); MEAN CORPUSCULAR VOLUME 90 fl (80-97); PLATELET COUNT 694 10^3/uL (150-450); RED BLOOD COUNT 2.64 10^6/uL (4.35-5.55); RED CELL DISTRIBUTION WIDTH 16.1 % (11.5-14.0); WHITE BLOOD COUNT 13.4 10^3/uL (4.0-10.5)
[2018-01-21 18:43] LABS: HEMOGLOBIN 7.9 g/dL (13.5-17.0)
--- NOTE | 2018-01-21 20:43 | PDOC PROGRESS REPORT ---
Subjective Progress Note for:: 01/21/18 Subjective:: Patient is seen by the bedside, he is comfortable much improved, requiring less pain medication, the culture from the I&D of the right abscess is staph aureus, the same culture from blood and also from the abscess on the right hip Reason For Visit: POSSIBLE SEPSIS,ANEMIA,TACHYCARDIA,HIP PAIN Physical Exam Vital Signs: Temp Pulse Resp BP Pulse Ox 98.0 F 100 18 106/64 99 01/21/18 15:53 01/21/18 15:53 01/21/18 15:53 01/21/18 15:53 01/21/18 15:53 Intake & Output 01/20/18 01/21/18 01/22/18 06:59 06:59 06:59 Intake Total 4707 3895 1703 Output Total 4600 1550 1495 Balance 107 2345 208 General appearance: PRESENT: no acute distress Eye exam: PRESENT: PERRLA Respiratory exam: PRESENT: clear to auscultation ishan Cardiovascular exam: PRESENT: +S1, +S2 GI/Abdominal exam: PRESENT: soft Neurological exam: PRESENT: alert Results Laboratory Results: 01/21/18 18:30 01/21/18 06:45 01/21/18 01/21/18 01/21/18 06:45 06:45 08:52 WBC 13.0 H RBC 2.23 L Hgb 6.6 L Hct 20.4 L MCV 92 MCH 29.6 MCHC 32.2 RDW 16.4 H Plt Count 665 H Seg Neutrophils % 73.7 Lymphocytes % 12.2 L Monocytes % 8.9 Eosinophils % 3.9 Basophils % 1.3 Absolute Neutrophils 9.6 H Absolute Lymphocytes 1.6 Absolute Monocytes 1.2 Absolute Eosinophils 0.5 Absolute Basophils 0.2 Sodium 140.5 Potassium 4.9 Chloride 104 Carbon Dioxide 34 H Anion Gap 3 L BUN 12 Creatinine 0.42 L Est GFR ( Amer) > 60 Est GFR (Non-Af Amer) > 60 Glucose 87 Calcium 9.0 Blood Type A POSITIVE Antibody Screen NEGATIVE 01/21/18 18:30 WBC 13.4 H RBC 2.64 L Hgb 7.9 L Hct 23.8 L MCV 90 MCH 30.0 MCHC 33.2 RDW 16.1 H Plt Count 694 H Seg Neutrophils % Lymphocytes % Monocytes % Eosinophils % Basophils % Absolute Neutrophils Absolute Lymphocytes Absolute Monocytes Absolute Eosinophils Absolute Basophils Sodium Potassium Chloride Carbon Dioxide Anion Gap BUN Creatinine Est GFR ( Amer) Est GFR (Non-Af Amer) Glucose Calcium Blood Type Antibody Screen 01/18/18 10:30 Hip - Joint Gram Stain - Final 01/18/18 10:30 Hip - Joint Body Fluid Culture - Final NO AEROBIC OR ANAEROBIC ORGANISMS RECOVERED 01/18/18 19:45 Hip - Right Gram Stain - Final 01/18/18 19:45 Hip - Right Body Fluid Culture - Final NO AEROBIC OR ANAEROBIC ORGANISMS RECOVERED Impressions: Chest X-Ray 01/05/18 00:00 IMPRESSION: The left subclavian central venous catheter is projected over the left IJ, tip is beyond the superior margin of the image near the cranial junction. Renal Ultrasound 01/06/18 00:00 IMPRESSION: 1. Mild increased bilateral renal cortical echogenicity. This could be seen with medical renal disease. No hydronephrosis. 2. Echogenic material in the base of the urinary bladder likely represents infectious, inflammatory, or hemorrhagic debris. Correlation with urinalysis recommended. Knee X-Ray 01/14/18 00:00 IMPRESSION: HARDWARE IN THE DISTAL FEMUR. NO ACUTE FINDINGS. Fluoroscopy 01/15/18 00:00 IMPRESSION: SATISFACTORY POSTOPERATIVE PELVIS. Hip X-Ray 01/15/18 00:00 IMPRESSION: SATISFACTORY POSTOPERATIVE PELVIS. Body Scan Nuclear Medicine 01/17/18 08:00 IMPRESSION: Increased uptake at both hips as above. Guidance Fluoroscopy 01/18/18 00:00 IMPRESSION: THERAPEUTIC INJECTION OF THE RIGHT HIP JOINT ABOVE. Hip Aspiration/Injection 01/18/18 00:00 IMPRESSION: THERAPEUTIC INJECTION OF THE RIGHT HIP JOINT ABOVE. Lower Extremity CT 01/18/18 00:00 IMPRESSION: 1. Peripherally enhancing collection throughout the posterior thigh compartment measures up to 22 cm in craniocaudal extent. The presence of gas within likely reflects infection/abscess unless there has been recent attempted aspiration or other surgical procedure in the area. Assessment & Plan - Diagnosis (1) Sepsis Qualifiers: Sepsis type: sepsis due to unspecified organism Qualified Code(s): A41.9 - Sepsis, unspecified organism Is this a current diagnosis for this admission?: Yes (2) Acute kidney injury Is this a current diagnosis for this admission?: Yes (3) Sickle cell anemia Qualifiers: Sickle-cell associated disorders: without crisis Qualified Code(s): D57.1 - 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 Is this a current diagnosis for this admission?: Yes (4) Abscess of left hip Is this a current diagnosis for this admission?: Yes (5) Sacral decubitus ulcer Qualifiers: Pressure ulcer stage: stage 2 Qualified Code(s): L89.152 - Pressure ulcer of sacral region, stage 2 Is this a current diagnosis for this admission?: Yes (6) Staphylococcus aureus septicemia Is this a current diagnosis for this admission?: Yes (7) Dislocation of internal left hip prosthesis, initial encounter Is this a current diagnosis for this admission?: Yes (8) Abscess of right thigh Is this a current diagnosis for this admission?: Yes - Plan Summary Plan Summary: Continue treatment
[2018-01-21] MEDS ORDERED: CEFTRIAXONE 1 GM/D5W RTU 1 GM/50 ML RTUPB IV SCH (21:00)
[2018-01-21] MEDS: CEFTRIAXONE SODIUM 1,000 MG in NORMAL SALINE 100 ML IV SCH (22:21)
[2018-01-22] MEDS: HYDROMORPHONE HCL INJ/PF 2 MG/ML AMPULE IV PRN ×6 (01:19→19:41)
[2018-01-22] MEDS: OXYCODONE-ACETAMINOPHEN 5-325 MG TABLET PO PRN ×4 (03:19→20:45)
[2018-01-22 06:07] LABS: ABSOLUTE BASOPHILS # (AUTO) 0.1 10^3/uL (0.0-0.2); ABSOLUTE EOSINOPHILS # (AUTO) 0.6 10^3/uL (0.0-0.6); ABSOLUTE LYMPHOCYTES (AUTO) 2.1 10^3/uL (0.5-4.7); ABSOLUTE MONOCYTES (AUTO) 1.3 10^3/uL (0.1-1.4); ABSOLUTE NEUT (AUTO) 9.7 10^3/uL (1.7-8.2); BASOPHILS % (AUTO) 1.1 % (0-2); EOSINOPHILS % (AUTO) 4.3 % (0-6); HEMATOCRIT 22.8 % (37.9-51.0); LYMPHOCYTES % (AUTO) 15.2 % (13-45); MEAN CORPUSCULAR HEMOGLOBIN 29.6 pg (27.0-33.4); MEAN CORPUSCULAR HGB CONC 32.7 g/dL (32.0-36.0); MEAN CORPUSCULAR VOLUME 91 fl (80-97); MONOCYTES % (AUTO) 9.5 % (3-13); PLATELET COUNT 679 10^3/uL (150-450); RED BLOOD COUNT 2.52 10^6/uL (4.35-5.55); RED CELL DISTRIBUTION WIDTH 16.4 % (11.5-14.0); SEGMENTED NEUTROPHILS % (AUTO) 69.9 % (42-78); TOTAL CELLS COUNTED % (AUTO) 100 %; WHITE BLOOD COUNT 13.9 10^3/uL (4.0-10.5)
[2018-01-22 06:10] LABS: HEMOGLOBIN 7.5 g/dL (13.5-17.0)
[2018-01-22 06:21] LABS: ANION GAP 6 (5-19); BLOOD UREA NITROGEN 10 mg/dL (7-20); CALCIUM 9.2 mg/dL (8.4-10.2); CARBON DIOXIDE 32 mmol/L (22-30); CHLORIDE 104 mmol/L (98-107); GLUCOSE 88 mg/dL (75-110); POTASSIUM 4.8 mmol/L (3.6-5.0); SODIUM 141.5 mmol/L (137-145)
[2018-01-22] MEDS: DEXTROSE 5%-NORMAL SALINE 1,000 ML IV PRN (08:35)
[2018-01-22] MEDS: FENTANYL CITRATE INJ/PF 100 MCG/2 ML AMPUL IV PRN ×2 (09:41→18:22)
[2018-01-22] MEDS: ASPIRIN 81 MG TABLET, ENT COATED PO SCH (09:42)
[2018-01-22] MEDS: FOLIC ACID 1 MG TABLET PO SCH (09:42)
[2018-01-22] MEDS: MAGNESIUM OXIDE 400 MG TABLET PO SCH (09:42)
[2018-01-22] MEDS: LEVETIRACETAM 500 MG TABLET PO SCH ×2 (09:42→19:40)
[2018-01-22] MEDS: ENOXAPARIN SODIUM INJ 30 MG/0.3 ML DISP.SYRIN SUBCUT SCH (09:43)
--- NOTE | 2018-01-22 12:19 | PDOC PROGRESS REPORT ---
Subjective Progress Note for:: 01/22/18 Subjective:: Patient is admitted because of the bilateral hip surgery status post infections and required IND Patient is currently doing much better Patient's denied any chest pain denied any shortness of the breath Positive bowel movement Reason For Visit: POSSIBLE SEPSIS,ANEMIA,TACHYCARDIA,HIP PAIN Physical Exam Vital Signs: Temp Pulse Resp BP Pulse Ox 98.2 F 94 18 112/76 100 01/22/18 08:00 01/22/18 08:00 01/22/18 08:00 01/22/18 08:00 01/22/18 08:00 Intake & Output 01/21/18 01/22/18 01/23/18 06:59 06:59 06:59 Intake Total 3895 2820 Output Total 1550 2543 Balance 2345 277 Weight 57.5 kg General appearance: PRESENT: no acute distress, well-developed, well-nourished Head exam: PRESENT: atraumatic, normocephalic Eye exam: PRESENT: conjunctiva pink, EOMI, PERRLA. ABSENT: scleral icterus Ear exam: PRESENT: normal external ear exam Mouth exam: PRESENT: moist, tongue midline Neck exam: PRESENT: full ROM. ABSENT: carotid bruit, JVD, lymphadenopathy, thyromegaly Respiratory exam: PRESENT: clear to auscultation ishan Cardiovascular exam: PRESENT: RRR. ABSENT: diastolic murmur, rubs, systolic murmur Pulses: PRESENT: normal dorsalis pedis pul, +2 pedal pulses bilateral Vascular exam: PRESENT: normal capillary refill GI/Abdominal exam: PRESENT: normal bowel sounds, soft. ABSENT: distended, guarding, mass, organolmegaly, rebound, tenderness Rectal exam: PRESENT: deferred Extremities exam: ABSENT: pedal edema Neurological exam: PRESENT: alert, awake, oriented to person, oriented to place , oriented to time, oriented to situation, CN II-XII grossly intact. ABSENT: motor sensory deficit Psychiatric exam: PRESENT: appropriate affect, normal mood. ABSENT: homicidal ideation, suicidal ideation Skin exam: PRESENT: dry, intact, warm. ABSENT: cyanosis, rash Results Laboratory Results: 01/22/18 05:20 01/22/18 05:20 01/21/18 01/21/18 01/22/18 08:52 18:30 05:20 WBC 13.4 H 13.9 H RBC 2.64 L 2.52 L Hgb 7.9 L 7.5 L Hct 23.8 L 22.8 L MCV 90 91 MCH 30.0 29.6 MCHC 33.2 32.7 RDW 16.1 H 16.4 H Plt Count 694 H 679 H Seg Neutrophils % 69.9 Lymphocytes % 15.2 Monocytes % 9.5 Eosinophils % 4.3 Basophils % 1.1 Absolute Neutrophils 9.7 H Absolute Lymphocytes 2.1 Absolute Monocytes 1.3 Absolute Eosinophils 0.6 Absolute Basophils 0.1 Sodium Potassium Chloride Carbon Dioxide Anion Gap BUN Creatinine Est GFR ( Amer) Est GFR (Non-Af Amer) Glucose Calcium Blood Type A POSITIVE Antibody Screen NEGATIVE 01/22/18 05:20 WBC RBC Hgb Hct MCV MCH MCHC RDW Plt Count Seg Neutrophils % Lymphocytes % Monocytes % Eosinophils % Basophils % Absolute Neutrophils Absolute Lymphocytes Absolute Monocytes Absolute Eosinophils Absolute Basophils Sodium 141.5 Potassium 4.8 Chloride 104 Carbon Dioxide 32 H Anion Gap 6 BUN 10 Creatinine 0.51 L Est GFR ( Amer) > 60 Est GFR (Non-Af Amer) > 60 Glucose 88 Calcium 9.2 Blood Type Antibody Screen 01/19/18 19:07 Hip - Right Gram Stain - Final 01/19/18 19:07 Hip - Right Wound Culture - Final NO AEROBIC OR ANAEROBIC ORGANISMS RECOVERED 01/18/18 10:30 Hip - Joint Gram Stain - Final 01/18/18 10:30 Hip - Joint Body Fluid Culture - Final NO AEROBIC OR ANAEROBIC ORGANISMS RECOVERED 01/18/18 19:45 Hip - Right Gram Stain - Final 01/18/18 19:45 Hip - Right Body Fluid Culture - Final NO AEROBIC OR ANAEROBIC ORGANISMS RECOVERED Impressions: Chest X-Ray 01/05/18 00:00 IMPRESSION: The left subclavian central venous catheter is projected over the left IJ, tip is beyond the superior margin of the image near the cranial junction. Renal Ultrasound 01/06/18 00:00 IMPRESSION: 1. Mild increased bilateral renal cortical echogenicity. This could be seen with medical renal disease. No hydronephrosis. 2. Echogenic material in the base of the urinary bladder likely represents infectious, inflammatory, or hemorrhagic debris. Correlation with urinalysis recommended. Knee X-Ray 01/14/18 00:00 IMPRESSION: HARDWARE IN THE DISTAL FEMUR. NO ACUTE FINDINGS. Fluoroscopy 01/15/18 00:00 IMPRESSION: SATISFACTORY POSTOPERATIVE PELVIS. Hip X-Ray 01/15/18 00:00 IMPRESSION: SATISFACTORY POSTOPERATIVE PELVIS. Body Scan Nuclear Medicine 01/17/18 08:00 IMPRESSION: Increased uptake at both hips as above. Guidance Fluoroscopy 01/18/18 00:00 IMPRESSION: THERAPEUTIC INJECTION OF THE RIGHT HIP JOINT ABOVE. Hip Aspiration/Injection 01/18/18 00:00 IMPRESSION: THERAPEUTIC INJECTION OF THE RIGHT HIP JOINT ABOVE. Lower Extremity CT 01/18/18 00:00 IMPRESSION: 1. Peripherally enhancing collection throughout the posterior thigh compartment measures up to 22 cm in craniocaudal extent. The presence of gas within likely reflects infection/abscess unless there has been recent attempted aspiration or other surgical procedure in the area. Assessment & Plan - Diagnosis (1) Abscess of left hip Is this a current diagnosis for this admission?: Yes (2) Abscess of right thigh Is this a current diagnosis for this admission?: Yes (3) Acute kidney injury Is this a current diagnosis for this admission?: Yes (4) Sacral decubitus ulcer Qualifiers: Pressure ulcer stage: stage 2 Qualified Code(s): L89.152 - Pressure ulcer of sacral region, stage 2 Is this a current diagnosis for this admission?: Yes (5) Sepsis Qualifiers: Sepsis type: sepsis due to unspecified organism Qualified Code(s): A41.9 - Sepsis, unspecified organism Is this a current diagnosis for this admission?: Yes (6) Anemia Is this a current diagnosis for this admission?: Yes (7) Sickle cell anemia Qualifiers: Sickle-cell associated disorders: with unspecified crisis Qualified Code(s) : D57.00 - Hb-SS disease with crisis, unspecified Is this a current diagnosis for this admission?: Yes - Time Time Spent with patient: 15-24 minutes Medications reviewed and adjusted accordingly: Yes Anticipated discharge: Other Within: Other - Inpatient Certification Medical Necessity: Need Close Monitoring Due to Risk of Patient Decompensation, Need for IV Antibiotics Post Hospital Care: D/C Refurbish Technician Documentation - Plan Summary Plan Summary: Continues to IV antibiotic
--- NOTE | 2018-01-22 18:45 | PDOC PROGRESS REPORT ---
Subjective Progress Note for:: 01/22/18 Subjective:: She states that he is feeling better since surgery. Worked with physical therapy. No issues overnight Reason For Visit: POSSIBLE SEPSIS,ANEMIA,TACHYCARDIA,HIP PAIN Physical Exam Vital Signs: Temp Pulse Resp BP Pulse Ox 36.8 C 97 18 112/76 100 01/22/18 08:00 01/22/18 14:00 01/22/18 08:00 01/22/18 08:00 01/22/18 08:00 Intake & Output 01/21/18 01/22/18 01/23/18 06:59 06:59 06:59 Intake Total 3895 2820 Output Total 1550 2543 Balance 2345 277 Weight 57.5 kg Adult Front & Back Image: 1 - Both drains are still intact. There is some serous blood with some clots in it. No evidence of pus in them. About 20 cc and them at the moment. Dressing are dry clean and intact. Patient swelling of the thigh is decreased. He is neurovascular intact distally Results Laboratory Results: 01/22/18 05:20 01/22/18 05:20 01/21/18 01/22/18 01/22/18 18:30 05:20 05:20 WBC 13.4 H 13.9 H RBC 2.64 L 2.52 L Hgb 7.9 L 7.5 L Hct 23.8 L 22.8 L MCV 90 91 MCH 30.0 29.6 MCHC 33.2 32.7 RDW 16.1 H 16.4 H Plt Count 694 H 679 H Seg Neutrophils % 69.9 Lymphocytes % 15.2 Monocytes % 9.5 Eosinophils % 4.3 Basophils % 1.1 Absolute Neutrophils 9.7 H Absolute Lymphocytes 2.1 Absolute Monocytes 1.3 Absolute Eosinophils 0.6 Absolute Basophils 0.1 Sodium 141.5 Potassium 4.8 Chloride 104 Carbon Dioxide 32 H Anion Gap 6 BUN 10 Creatinine 0.51 L Est GFR ( Amer) > 60 Est GFR (Non-Af Amer) > 60 Glucose 88 Calcium 9.2 01/19/18 19:07 Hip - Right Gram Stain - Final 01/19/18 19:07 Hip - Right Wound Culture - Final NO AEROBIC OR ANAEROBIC ORGANISMS RECOVERED Impressions: Chest X-Ray 01/05/18 00:00 IMPRESSION: The left subclavian central venous catheter is projected over the left IJ, tip is beyond the superior margin of the image near the cranial junction. Renal Ultrasound 01/06/18 00:00 IMPRESSION: 1. Mild increased bilateral renal cortical echogenicity. This could be seen with medical renal disease. No hydronephrosis. 2. Echogenic material in the base of the urinary bladder likely represents infectious, inflammatory, or hemorrhagic debris. Correlation with urinalysis recommended. Knee X-Ray 01/14/18 00:00 IMPRESSION: HARDWARE IN THE DISTAL FEMUR. NO ACUTE FINDINGS. Fluoroscopy 01/15/18 00:00 IMPRESSION: SATISFACTORY POSTOPERATIVE PELVIS. Hip X-Ray 01/15/18 00:00 IMPRESSION: SATISFACTORY POSTOPERATIVE PELVIS. Body Scan Nuclear Medicine 01/17/18 08:00 IMPRESSION: Increased uptake at both hips as above. Guidance Fluoroscopy 01/18/18 00:00 IMPRESSION: THERAPEUTIC INJECTION OF THE RIGHT HIP JOINT ABOVE. Hip Aspiration/Injection 01/18/18 00:00 IMPRESSION: THERAPEUTIC INJECTION OF THE RIGHT HIP JOINT ABOVE. Lower Extremity CT 01/18/18 00:00 IMPRESSION: 1. Peripherally enhancing collection throughout the posterior thigh compartment measures up to 22 cm in craniocaudal extent. The presence of gas within likely reflects infection/abscess unless there has been recent attempted aspiration or other surgical procedure in the area. Assessment & Plan - Plan Summary Plan Summary: 28-year-old gentleman status post I&D of the right side. Weight-bear as tolerated. Work with physical therapy. Land to change dressing and remove drains tomorrow.
[2018-01-22] MEDS: CEFTRIAXONE SODIUM 1,000 MG in NORMAL SALINE 100 ML IV SCH (21:30)
[2018-01-23] MEDS: HYDROMORPHONE HCL INJ/PF 2 MG/ML AMPULE IV PRN ×6 (00:19→19:24)
[2018-01-23] MEDS: OXYCODONE-ACETAMINOPHEN 5-325 MG TABLET PO PRN ×4 (01:42→19:25)
[2018-01-23] MEDS: FENTANYL CITRATE INJ/PF 100 MCG/2 ML AMPUL IV PRN ×2 (02:35→07:21)
[2018-01-23] MEDS: DEXTROSE 5%-NORMAL SALINE 1,000 ML IV PRN ×2 (04:28→19:18)
[2018-01-23 05:16] LABS: ABSOLUTE BASOPHILS # (AUTO) 0.2 10^3/uL (0.0-0.2); ABSOLUTE EOSINOPHILS # (AUTO) 0.6 10^3/uL (0.0-0.6); ABSOLUTE LYMPHOCYTES (AUTO) 2.8 10^3/uL (0.5-4.7); ABSOLUTE MONOCYTES (AUTO) 1.2 10^3/uL (0.1-1.4); ABSOLUTE NEUT (AUTO) 8.4 10^3/uL (1.7-8.2); BASOPHILS % (AUTO) 1.3 % (0-2); EOSINOPHILS % (AUTO) 4.5 % (0-6); HEMATOCRIT 23.7 % (37.9-51.0); LYMPHOCYTES % (AUTO) 21.3 % (13-45); MEAN CORPUSCULAR HEMOGLOBIN 30.1 pg (27.0-33.4); MEAN CORPUSCULAR HGB CONC 32.9 g/dL (32.0-36.0); MEAN CORPUSCULAR VOLUME 91 fl (80-97); PLATELET COUNT 702 10^3/uL (150-450); RED CELL DISTRIBUTION WIDTH 16.2 % (11.5-14.0); SEGMENTED NEUTROPHILS % (AUTO) 63.9 % (42-78); TOTAL CELLS COUNTED % (AUTO) 100 %; WHITE BLOOD COUNT 13.1 10^3/uL (4.0-10.5)
[2018-01-23 05:19] LABS: HEMOGLOBIN 7.8 g/dL (13.5-17.0)
[2018-01-23 05:30] LABS: ANION GAP 5 (5-19); BLOOD UREA NITROGEN 10 mg/dL (7-20); CALCIUM 9.3 mg/dL (8.4-10.2); CARBON DIOXIDE 33 mmol/L (22-30); CHLORIDE 103 mmol/L (98-107); GLUCOSE 88 mg/dL (75-110)
--- NOTE | 2018-01-23 06:26 | PDOC PROGRESS REPORT ---
Subjective Progress Note for:: 01/23/18 Subjective:: Patient is admitted because of the bilateral hip surgery status post infections and required IND Patient is currently doing much better Patient's denied any chest pain denied any shortness of the breath Positive bowel movement Reason For Visit: POSSIBLE SEPSIS,ANEMIA,TACHYCARDIA,HIP PAIN Physical Exam Vital Signs: Temp Pulse Resp BP Pulse Ox 98.6 F 101 H 16 97/60 L 95 01/23/18 04:45 01/23/18 04:45 01/23/18 04:45 01/23/18 04:45 01/23/18 04:45 Intake & Output 01/21/18 01/22/18 01/23/18 06:59 06:59 06:59 Intake Total 3895 2820 1505 Output Total 1550 2543 2105 Balance 2345 277 -600 Weight 57.5 kg General appearance: PRESENT: no acute distress, well-developed, well-nourished Head exam: PRESENT: atraumatic, normocephalic Eye exam: PRESENT: conjunctiva pink, EOMI, PERRLA. ABSENT: scleral icterus Ear exam: PRESENT: normal external ear exam Mouth exam: PRESENT: moist, tongue midline Neck exam: PRESENT: full ROM. ABSENT: carotid bruit, JVD, lymphadenopathy, thyromegaly Respiratory exam: PRESENT: clear to auscultation ishan Cardiovascular exam: PRESENT: RRR. ABSENT: diastolic murmur, rubs, systolic murmur Pulses: PRESENT: normal dorsalis pedis pul, +2 pedal pulses bilateral Vascular exam: PRESENT: normal capillary refill GI/Abdominal exam: PRESENT: normal bowel sounds, soft. ABSENT: distended, guarding, mass, organolmegaly, rebound, tenderness Rectal exam: PRESENT: deferred Extremities exam: ABSENT: pedal edema Additional comments: Both hip dressing is intact Neurological exam: PRESENT: alert, awake, oriented to person, oriented to place , oriented to time, oriented to situation, CN II-XII grossly intact. ABSENT: motor sensory deficit Psychiatric exam: PRESENT: appropriate affect, normal mood. ABSENT: homicidal ideation, suicidal ideation Skin exam: PRESENT: dry, intact, warm. ABSENT: cyanosis, rash Results Laboratory Results: 01/23/18 04:20 01/23/18 04:20 01/22/18 01/23/18 01/23/18 05:20 04:20 04:20 WBC 13.1 H RBC 2.60 L Hgb 7.8 L Hct 23.7 L MCV 91 MCH 30.1 MCHC 32.9 RDW 16.2 H Plt Count 702 H Seg Neutrophils % 63.9 Lymphocytes % 21.3 Monocytes % 9.0 Eosinophils % 4.5 Basophils % 1.3 Absolute Neutrophils 8.4 H Absolute Lymphocytes 2.8 Absolute Monocytes 1.2 Absolute Eosinophils 0.6 Absolute Basophils 0.2 Sodium 141.5 141.0 Potassium 4.8 5.0 Chloride 104 103 Carbon Dioxide 32 H 33 H Anion Gap 6 5 BUN 10 10 Creatinine 0.51 L 0.51 L Est GFR ( Amer) > 60 > 60 Est GFR (Non-Af Amer) > 60 > 60 Glucose 88 88 Calcium 9.2 9.3 01/19/18 19:07 Hip - Right Gram Stain - Final 01/19/18 19:07 Hip - Right Wound Culture - Final NO AEROBIC OR ANAEROBIC ORGANISMS RECOVERED Impressions: Chest X-Ray 01/05/18 00:00 IMPRESSION: The left subclavian central venous catheter is projected over the left IJ, tip is beyond the superior margin of the image near the cranial junction. Renal Ultrasound 01/06/18 00:00 IMPRESSION: 1. Mild increased bilateral renal cortical echogenicity. This could be seen with medical renal disease. No hydronephrosis. 2. Echogenic material in the base of the urinary bladder likely represents infectious, inflammatory, or hemorrhagic debris. Correlation with urinalysis recommended. Knee X-Ray 01/14/18 00:00 IMPRESSION: HARDWARE IN THE DISTAL FEMUR. NO ACUTE FINDINGS. Fluoroscopy 01/15/18 00:00 IMPRESSION: SATISFACTORY POSTOPERATIVE PELVIS. Hip X-Ray 01/15/18 00:00 IMPRESSION: SATISFACTORY POSTOPERATIVE PELVIS. Body Scan Nuclear Medicine 01/17/18 08:00 IMPRESSION: Increased uptake at both hips as above. Guidance Fluoroscopy 01/18/18 00:00 IMPRESSION: THERAPEUTIC INJECTION OF THE RIGHT HIP JOINT ABOVE. Hip Aspiration/Injection 01/18/18 00:00 IMPRESSION: THERAPEUTIC INJECTION OF THE RIGHT HIP JOINT ABOVE. Lower Extremity CT 01/18/18 00:00 IMPRESSION: 1. Peripherally enhancing collection throughout the posterior thigh compartment measures up to 22 cm in craniocaudal extent. The presence of gas within likely reflects infection/abscess unless there has been recent attempted aspiration or other surgical procedure in the area. Assessment & Plan - Diagnosis (1) Abscess of left hip Is this a current diagnosis for this admission?: Yes (2) Abscess of right thigh Is this a current diagnosis for this admission?: Yes (3) Acute kidney injury Is this a current diagnosis for this admission?: Yes (4) Sacral decubitus ulcer Qualifiers: Pressure ulcer stage: stage 2 Qualified Code(s): L89.152 - Pressure ulcer of sacral region, stage 2 Is this a current diagnosis for this admission?: Yes (5) Sepsis Qualifiers: Sepsis type: sepsis due to unspecified organism Qualified Code(s): A41.9 - Sepsis, unspecified organism Is this a current diagnosis for this admission?: Yes (6) Anemia Is this a current diagnosis for this admission?: Yes (7) Sickle cell anemia Qualifiers: Sickle-cell associated disorders: with unspecified crisis Qualified Code(s) : D57.00 - Hb-SS disease with crisis, unspecified Is this a current diagnosis for this admission?: Yes - Time Time Spent with patient: 15-24 minutes Medications reviewed and adjusted accordingly: Yes Anticipated discharge: Other Within: Other - Inpatient Certification Medical Necessity: Need Close Monitoring Due to Risk of Patient Decompensation, Need for IV Antibiotics Post Hospital Care: D/C Senior [employer] Documentation - Plan Summary Plan Summary: Continues current medication
[2018-01-23] MEDS: FOLIC ACID 1 MG TABLET PO SCH (10:43)
[2018-01-23] MEDS: POLYETHYLENE GLYCOL 3350 POWDER 17 GM/1 PACKET PO SCH (10:43)
[2018-01-23] MEDS: LEVETIRACETAM 500 MG TABLET PO SCH ×2 (10:44→19:23)
[2018-01-23] MEDS: MAGNESIUM OXIDE 400 MG TABLET PO SCH (10:44)
[2018-01-23] MEDS: ASPIRIN 81 MG TABLET, ENT COATED PO SCH (10:44)
[2018-01-23] MEDS: ENOXAPARIN SODIUM INJ 30 MG/0.3 ML DISP.SYRIN SUBCUT SCH (10:45)
[2018-01-23] MEDS ORDERED: HYDROMORPHONE HCL INJ/PF 2 MG/ML AMPULE IV PRN (12:30)
[2018-01-23] MEDS: CEFTRIAXONE SODIUM 1,000 MG in NORMAL SALINE 100 ML IV SCH (21:43)
[2018-01-24] MEDS: FENTANYL CITRATE INJ/PF 100 MCG/2 ML AMPUL IV PRN ×4 (02:22→19:55)
[2018-01-24] MEDS: HYDROMORPHONE HCL INJ/PF 2 MG/ML AMPULE IV PRN ×6 (03:21→22:29)
[2018-01-24] MEDS: OXYCODONE-ACETAMINOPHEN 5-325 MG TABLET PO PRN ×3 (05:09→21:04)
[2018-01-24] MEDS: DEXTROSE 5%-NORMAL SALINE 1,000 ML IV PRN (05:29)
[2018-01-24 06:40] LABS: ABSOLUTE BASOPHILS # (AUTO) 0.2 10^3/uL (0.0-0.2); ABSOLUTE EOSINOPHILS # (AUTO) 0.6 10^3/uL (0.0-0.6); ABSOLUTE LYMPHOCYTES (AUTO) 1.6 10^3/uL (0.5-4.7); ABSOLUTE MONOCYTES (AUTO) 1.1 10^3/uL (0.1-1.4); ABSOLUTE NEUT (AUTO) 7.9 10^3/uL (1.7-8.2); BASOPHILS % (AUTO) 1.5 % (0-2); EOSINOPHILS % (AUTO) 5.2 % (0-6); HEMATOCRIT 25.7 % (37.9-51.0); HEMOGLOBIN 8.4 g/dL (13.5-17.0); LYMPHOCYTES % (AUTO) 13.8 % (13-45); MEAN CORPUSCULAR HEMOGLOBIN 29.7 pg (27.0-33.4); MEAN CORPUSCULAR HGB CONC 32.6 g/dL (32.0-36.0); MEAN CORPUSCULAR VOLUME 91 fl (80-97); MONOCYTES % (AUTO) 9.5 % (3-13); PLATELET COUNT 721 10^3/uL (150-450); RED BLOOD COUNT 2.82 10^6/uL (4.35-5.55); RED CELL DISTRIBUTION WIDTH 16.3 % (11.5-14.0); TOTAL CELLS COUNTED % (AUTO) 100 %; WHITE BLOOD COUNT 11.2 10^3/uL (4.0-10.5)
[2018-01-24 06:51] LABS: ANION GAP 7 (5-19); BLOOD UREA NITROGEN 7 mg/dL (7-20); CALCIUM 9.5 mg/dL (8.4-10.2); CARBON DIOXIDE 32 mmol/L (22-30); CHLORIDE 102 mmol/L (98-107); GLUCOSE 94 mg/dL (75-110); SODIUM 140.6 mmol/L (137-145)
[2018-01-24] MEDS: POLYETHYLENE GLYCOL 3350 POWDER 17 GM/1 PACKET PO SCH (09:44)
[2018-01-24] MEDS: LEVETIRACETAM 500 MG TABLET PO SCH ×2 (09:45→18:43)
[2018-01-24] MEDS: MAGNESIUM OXIDE 400 MG TABLET PO SCH (09:45)
[2018-01-24] MEDS: ASPIRIN 81 MG TABLET, ENT COATED PO SCH (09:45)
[2018-01-24] MEDS: ENOXAPARIN SODIUM INJ 30 MG/0.3 ML DISP.SYRIN SUBCUT SCH (09:46)
[2018-01-24] MEDS: FOLIC ACID 1 MG TABLET PO SCH (09:46)
--- NOTE | 2018-01-24 20:59 | PDOC PROGRESS REPORT ---
Subjective Progress Note for:: 01/24/18 Subjective:: Patient continues to show improvement, he will need to be on IV antibiotic for a total of 6 weeks, discharge planning need to start making arrangement for rehabilitation Reason For Visit: POSSIBLE SEPSIS,ANEMIA,TACHYCARDIA,HIP PAIN Physical Exam Vital Signs: Temp Pulse Resp BP Pulse Ox 97.9 F 105 H 16 120/73 99 01/24/18 19:51 01/24/18 19:51 01/24/18 19:51 01/24/18 19:51 01/24/18 19:51 Intake & Output 01/23/18 01/24/18 01/25/18 06:59 06:59 06:59 Intake Total 2966 2782 1110 Output Total 2805 3045 675 Balance 161 -263 435 Weight 56.9 kg General appearance: PRESENT: no acute distress Eye exam: PRESENT: PERRLA Respiratory exam: PRESENT: clear to auscultation ishan Cardiovascular exam: PRESENT: +S1, +S2 GI/Abdominal exam: PRESENT: soft Neurological exam: PRESENT: alert Results Laboratory Results: 01/24/18 05:20 01/24/18 05:20 01/24/18 01/24/18 05:20 05:20 WBC 11.2 H RBC 2.82 L Hgb 8.4 L Hct 25.7 L MCV 91 MCH 29.7 MCHC 32.6 RDW 16.3 H Plt Count 721 H Seg Neutrophils % 70.0 Lymphocytes % 13.8 Monocytes % 9.5 Eosinophils % 5.2 Basophils % 1.5 Absolute Neutrophils 7.9 Absolute Lymphocytes 1.6 Absolute Monocytes 1.1 Absolute Eosinophils 0.6 Absolute Basophils 0.2 Sodium 140.6 Potassium 5.0 Chloride 102 Carbon Dioxide 32 H Anion Gap 7 BUN 7 Creatinine 0.46 L Est GFR ( Amer) > 60 Est GFR (Non-Af Amer) > 60 Glucose 94 Calcium 9.5 Impressions: Chest X-Ray 01/05/18 00:00 IMPRESSION: The left subclavian central venous catheter is projected over the left IJ, tip is beyond the superior margin of the image near the cranial junction. Renal Ultrasound 01/06/18 00:00 IMPRESSION: 1. Mild increased bilateral renal cortical echogenicity. This could be seen with medical renal disease. No hydronephrosis. 2. Echogenic material in the base of the urinary bladder likely represents infectious, inflammatory, or hemorrhagic debris. Correlation with urinalysis recommended. Knee X-Ray 01/14/18 00:00 IMPRESSION: HARDWARE IN THE DISTAL FEMUR. NO ACUTE FINDINGS. Fluoroscopy 01/15/18 00:00 IMPRESSION: SATISFACTORY POSTOPERATIVE PELVIS. Hip X-Ray 01/15/18 00:00 IMPRESSION: SATISFACTORY POSTOPERATIVE PELVIS. Body Scan Nuclear Medicine 01/17/18 08:00 IMPRESSION: Increased uptake at both hips as above. Guidance Fluoroscopy 01/18/18 00:00 IMPRESSION: THERAPEUTIC INJECTION OF THE RIGHT HIP JOINT ABOVE. Hip Aspiration/Injection 01/18/18 00:00 IMPRESSION: THERAPEUTIC INJECTION OF THE RIGHT HIP JOINT ABOVE. Lower Extremity CT 01/18/18 00:00 IMPRESSION: 1. Peripherally enhancing collection throughout the posterior thigh compartment measures up to 22 cm in craniocaudal extent. The presence of gas within likely reflects infection/abscess unless there has been recent attempted aspiration or other surgical procedure in the area. Assessment & Plan - Diagnosis (1) Sepsis Qualifiers: Sepsis type: sepsis due to unspecified organism Qualified Code(s): A41.9 - Sepsis, unspecified organism Is this a current diagnosis for this admission?: Yes (2) Acute kidney injury Is this a current diagnosis for this admission?: Yes (3) Sickle cell anemia Qualifiers: Sickle-cell associated disorders: without crisis Qualified Code(s): D57.1 - 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 Is this a current diagnosis for this admission?: Yes (4) Abscess of left hip Is this a current diagnosis for this admission?: Yes (5) Sacral decubitus ulcer Qualifiers: Pressure ulcer stage: stage 2 Qualified Code(s): L89.152 - Pressure ulcer of sacral region, stage 2 Is this a current diagnosis for this admission?: Yes (6) Staphylococcus aureus septicemia Is this a current diagnosis for this admission?: Yes (7) Dislocation of internal left hip prosthesis, initial encounter Is this a current diagnosis for this admission?: Yes (8) Abscess of right thigh Is this a current diagnosis for this admission?: Yes
[2018-01-24] MEDS: CEFTRIAXONE SODIUM 1,000 MG in NORMAL SALINE 100 ML IV SCH (21:04)
[2018-01-25] MEDS: FENTANYL CITRATE INJ/PF 100 MCG/2 ML AMPUL IV PRN ×4 (01:03→17:10)
[2018-01-25] MEDS: HYDROMORPHONE HCL INJ/PF 2 MG/ML AMPULE IV PRN ×4 (03:15→19:31)
[2018-01-25] MEDS: OXYCODONE-ACETAMINOPHEN 5-325 MG TABLET PO PRN ×3 (04:03→23:36)
[2018-01-25] MEDS: LEVETIRACETAM 500 MG TABLET PO SCH ×2 (09:57→17:10)
[2018-01-25] MEDS: FOLIC ACID 1 MG TABLET PO SCH (09:57)
[2018-01-25] MEDS: MAGNESIUM OXIDE 400 MG TABLET PO SCH (09:57)
[2018-01-25] MEDS: ASPIRIN 81 MG TABLET, ENT COATED PO SCH (09:57)
[2018-01-25] MEDS: POLYETHYLENE GLYCOL 3350 POWDER 17 GM/1 PACKET PO SCH (09:58)
[2018-01-25] MEDS: ENOXAPARIN SODIUM INJ 30 MG/0.3 ML DISP.SYRIN SUBCUT SCH (09:58)
--- NOTE | 2018-01-25 12:07 | PDOC PROGRESS REPORT ---
Subjective Progress Note for:: 01/25/18 Subjective:: Patient seen at bedside. Currently undergoing physical therapy which does cause some discomfort on attempted weightbearing. States preoperative discomfort has significantly improved. Does not complain of leg pain. Denies fever chills or sweats. Reason For Visit: POSSIBLE SEPSIS,ANEMIA,TACHYCARDIA,HIP PAIN Physical Exam Vital Signs: Temp Pulse Resp BP Pulse Ox 98.1 F 100 16 106/66 97 01/25/18 08:00 01/25/18 08:00 01/25/18 08:00 01/25/18 08:00 01/25/18 08:00 Intake & Output 01/24/18 01/25/18 01/26/18 06:59 06:59 06:59 Intake Total 2782 1482 Output Total 3045 1592 Balance -263 -110 Weight 56.9 kg 57.9 kg Musculoskeletal exam: PRESENT: other - Right lower extremity: Drains removed today. No evidence of fluid reaccumulation along the lateral side. Dressing clean/dry/intact. No tenderness to palpation. Pain with attempted weightbearing. No knee effusion. Left lower extremity dressing clean/dry/ intact. No evidence of limb length inequality. Intact plantar flexion/ dorsiflexion. Results Laboratory Results: 01/24/18 05:20 01/24/18 05:20 Impressions: Chest X-Ray 01/05/18 00:00 IMPRESSION: The left subclavian central venous catheter is projected over the left IJ, tip is beyond the superior margin of the image near the cranial junction. Renal Ultrasound 01/06/18 00:00 IMPRESSION: 1. Mild increased bilateral renal cortical echogenicity. This could be seen with medical renal disease. No hydronephrosis. 2. Echogenic material in the base of the urinary bladder likely represents infectious, inflammatory, or hemorrhagic debris. Correlation with urinalysis recommended. Knee X-Ray 01/14/18 00:00 IMPRESSION: HARDWARE IN THE DISTAL FEMUR. NO ACUTE FINDINGS. Fluoroscopy 01/15/18 00:00 IMPRESSION: SATISFACTORY POSTOPERATIVE PELVIS. Hip X-Ray 01/15/18 00:00 IMPRESSION: SATISFACTORY POSTOPERATIVE PELVIS. Body Scan Nuclear Medicine 01/17/18 08:00 IMPRESSION: Increased uptake at both hips as above. Guidance Fluoroscopy 01/18/18 00:00 IMPRESSION: THERAPEUTIC INJECTION OF THE RIGHT HIP JOINT ABOVE. Hip Aspiration/Injection 01/18/18 00:00 IMPRESSION: THERAPEUTIC INJECTION OF THE RIGHT HIP JOINT ABOVE. Lower Extremity CT 01/18/18 00:00 IMPRESSION: 1. Peripherally enhancing collection throughout the posterior thigh compartment measures up to 22 cm in craniocaudal extent. The presence of gas within likely reflects infection/abscess unless there has been recent attempted aspiration or other surgical procedure in the area. Assessment & Plan - Diagnosis (1) Pain of right lower extremity Is this a current diagnosis for this admission?: Yes (2) Abscess of right thigh Is this a current diagnosis for this admission?: Yes Plan: Status post I&D right thigh abscess 1. cultures demonstrate staph aureus consistent with previous culture results from various areas will continue current IV antibiotics 2. Patient's white count continues to trend downward and is at its lowest level since admission. 3. Acute on chronic blood loss anemia. Currently stable 4 continue physical therapy as per hip precautions. 5 discharge to [facility] when bed available.
--- NOTE | 2018-01-25 20:45 | PDOC PROGRESS REPORT ---
Subjective Progress Note for:: 01/25/18 Subjective:: Patient was seen by the bedside he had staph aureus septicemia associated with abscess in the left hip and abscess in the right thigh ,the culture from both abscesses was staph aureus he also had polymicrobial infection of sacral decubitus that included E. coli and Proteus species all of these pathogens were sensitive to ceftriaxone. Patient is clinically stable the plan is to discharge him to rehab hopefully tomorrow he has a bed at the group home home at [place]. We will discontinue IV ceftriaxone, he needs to continue antibiotic for 4-6 weeks especially with the abscess involving the left hip. The staph aureus is pansensitive to most antibiotic including beta-lactam, fluoroquinolones, etc. Reason For Visit: POSSIBLE SEPSIS,ANEMIA,TACHYCARDIA,HIP PAIN Physical Exam Vital Signs: Temp Pulse Resp BP Pulse Ox 97.9 F 111 H 16 116/76 99 01/25/18 16:57 01/25/18 19:00 01/25/18 16:57 01/25/18 16:57 01/25/18 16:57 Intake & Output 01/24/18 01/25/18 01/26/18 06:59 06:59 06:59 Intake Total 2782 1482 850 Output Total 3045 1592 925 Balance -263 -110 -75 Weight 56.9 kg 57.9 kg General appearance: PRESENT: no acute distress Head exam: PRESENT: atraumatic, normocephalic Eye exam: PRESENT: conjunctiva pink, EOMI, PERRLA Ear exam: PRESENT: normal external ear exam Mouth exam: PRESENT: moist, tongue midline Neck exam: PRESENT: full ROM Respiratory exam: PRESENT: clear to auscultation ishan Cardiovascular exam: PRESENT: RRR, +S1, +S2 Vascular exam: PRESENT: normal capillary refill GI/Abdominal exam: PRESENT: normal bowel sounds, soft Rectal exam: PRESENT: deferred Neurological exam: PRESENT: alert Psychiatric exam: PRESENT: appropriate affect, normal mood Skin exam: PRESENT: dry, intact, warm Results Laboratory Results: 01/24/18 05:20 01/24/18 05:20 Impressions: Chest X-Ray 01/05/18 00:00 IMPRESSION: The left subclavian central venous catheter is projected over the left IJ, tip is beyond the superior margin of the image near the cranial junction. Renal Ultrasound 01/06/18 00:00 IMPRESSION: 1. Mild increased bilateral renal cortical echogenicity. This could be seen with medical renal disease. No hydronephrosis. 2. Echogenic material in the base of the urinary bladder likely represents infectious, inflammatory, or hemorrhagic debris. Correlation with urinalysis recommended. Knee X-Ray 01/14/18 00:00 IMPRESSION: HARDWARE IN THE DISTAL FEMUR. NO ACUTE FINDINGS. Fluoroscopy 01/15/18 00:00 IMPRESSION: SATISFACTORY POSTOPERATIVE PELVIS. Hip X-Ray 01/15/18 00:00 IMPRESSION: SATISFACTORY POSTOPERATIVE PELVIS. Body Scan Nuclear Medicine 01/17/18 08:00 IMPRESSION: Increased uptake at both hips as above. Guidance Fluoroscopy 01/18/18 00:00 IMPRESSION: THERAPEUTIC INJECTION OF THE RIGHT HIP JOINT ABOVE. Hip Aspiration/Injection 01/18/18 00:00 IMPRESSION: THERAPEUTIC INJECTION OF THE RIGHT HIP JOINT ABOVE. Lower Extremity CT 01/18/18 00:00 IMPRESSION: 1. Peripherally enhancing collection throughout the posterior thigh compartment measures up to 22 cm in craniocaudal extent. The presence of gas within likely reflects infection/abscess unless there has been recent attempted aspiration or other surgical procedure in the area. Assessment & Plan - Diagnosis (1) Sepsis Qualifiers: Sepsis type: methicillin susceptible Staphylococcus aureus Qualified Code(s ): A41.01 - Sepsis due to Methicillin susceptible Staphylococcus aureus Is this a current diagnosis for this admission?: Yes (2) Acute kidney injury Is this a current diagnosis for this admission?: Yes (3) Sickle cell anemia Qualifiers: Sickle-cell associated disorders: without crisis Qualified Code(s): D57.1 - 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 Is this a current diagnosis for this admission?: Yes (4) Abscess of left hip Is this a current diagnosis for this admission?: Yes (5) Sacral decubitus ulcer Qualifiers: Pressure ulcer stage: stage 2 Qualified Code(s): L89.152 - Pressure ulcer of sacral region, stage 2 Is this a current diagnosis for this admission?: Yes (6) Staphylococcus aureus septicemia Is this a current diagnosis for this admission?: Yes (7) Dislocation of internal left hip prosthesis, initial encounter Is this a current diagnosis for this admission?: Yes (8) Abscess of right thigh Is this a current diagnosis for this admission?: Yes - Plan Summary Plan Summary: Discontinue ceftriaxone, start Levaquin
[2018-01-25] MEDS: OXYCODONE HCL IR 5 MG TABLET PO PRN (23:37)
[2018-01-26] MEDS: OXYCODONE-ACETAMINOPHEN 5-325 MG TABLET PO PRN ×4 (03:37→18:07)
[2018-01-26] MEDS: OXYCODONE HCL IR 5 MG TABLET PO PRN ×4 (03:38→18:07)
[2018-01-26] MEDS ORDERED: LEVOFLOXACIN 750 MG TABLET PO SCH (10:00)
[2018-01-26] MEDS: LEVETIRACETAM 500 MG TABLET PO SCH ×2 (11:56→18:06)
[2018-01-26] MEDS: FOLIC ACID 1 MG TABLET PO SCH (11:56)
[2018-01-26] MEDS: ASPIRIN 81 MG TABLET, ENT COATED PO SCH (11:56)
[2018-01-26] MEDS: POLYETHYLENE GLYCOL 3350 POWDER 17 GM/1 PACKET PO SCH (11:57)
[2018-01-26] MEDS: MAGNESIUM OXIDE 400 MG TABLET PO SCH (11:57)
[2018-01-26] MEDS: ENOXAPARIN SODIUM INJ 30 MG/0.3 ML DISP.SYRIN SUBCUT SCH (11:57)
--- NOTE | 2018-01-26 14:46 | PDOC TRANSFER SUMMARY ---
General - Admit/Disc Date/PCP Admission Date/Primary Care Provider: 01/05/18 17:31 RUMA RUTH MD Discharge Date: 01/26/18 - Discharge Diagnosis (1) Sepsis Is this a current diagnosis for this admission?: Yes (2) Acute kidney injury Is this a current diagnosis for this admission?: Yes (3) Sickle cell anemia Is this a current diagnosis for this admission?: Yes (4) Abscess of left hip Is this a current diagnosis for this admission?: Yes (5) Sacral decubitus ulcer Is this a current diagnosis for this admission?: Yes (6) Staphylococcus aureus septicemia Is this a current diagnosis for this admission?: Yes (7) Dislocation of internal left hip prosthesis, initial encounter Is this a current diagnosis for this admission?: Yes (8) Abscess of right thigh Is this a current diagnosis for this admission?: Yes - Additional Information Resuscitation Status: Full Code Prescriptions: RX: Oxycodone HCl/Acetaminophen [Percocet 5-325 mg Tablet] 1 tab PO Q6HP PRN # 120 tablet PRN Reason: RX: Levofloxacin [Levaquin 750 mg Tablet] 750 mg PO DAILY #20 tablet Home Medications: RX: Diclofenac Sodium [Voltaren 50 mg Tablet.dr] 50 mg PO BID 01/05/18 RX: Folic Acid [Folvite 1 mg Tablet] 1 mg PO DAILY 01/05/18 RX: Hydroxyurea 500 mg PO DAILY 01/05/18 RX: Levetiracetam 500 mg PO BID 01/05/18 RX: Megestrol Acetate 40 mg PO BID 01/05/18 RX: Misoprostol [Cytotec 0.2 mg Tablet] 200 mcg PO BID 01/05/18 RX: Tamsulosin HCl 0.4 mg PO DAILY 01/05/18 RX: Levofloxacin [Levaquin 750 mg Tablet] 750 mg PO DAILY #20 tablet 01/26/18 RX: Oxycodone HCl/Acetaminophen [Percocet 5-325 mg Tablet] 1 tab PO Q6HP PRN # 120 tablet 01/26/18 History of Present Illness Admission Date/PCP: 01/05/18 17:31 RUMA RUTH MD History of Present Illness: Patient is a 28-year-old male with history of sickle cell disease he recently had left hip arthroplasty he came to the office with the uncle for evaluation of difficulty bearing weight, extreme fatigue, failure to thrive. He was evaluated in the office, on examination he was very pale looking, he was admitted directly from the office to the hospital for evaluation. Hospital Course Hospital Course: Patient hospital course was prolonged, he has staph aureus septicemia, methicillin sensitive staph aureus. He was initially treated with Rocephin and Zyvox because on presentation he also had acute kidney injury, the serum creatinine was 4 after correction of the acute kidney injury that was thought to be prerenal, he was transitioned from Zyvox to vancomycin until culture results came back. The culture confirmed staph aureus that was pansensitive to all antibiotic including Rocephin that patient was already on so he was continued on this antibiotic. He was seen by Dr. Marcos orthopedic the source of the bacteremia was from the left hip, he has left hip periprosthetic infection, he underwent revision of the left hip arthroplasty, incision and drainage of the wound in his buttock and implantation of OsteoSet beads. When he arrived he had decubiti ulcer in the sacrum stage I. Hospital course was prolonged uneventful, he had a dislocation of the left hip prosthetics he was seen by orthopedic Dr. Marcos he underwent closed reduction of the dislocated hip joint in the operative room under anesthesia. Because of persistent pain he had a fluoroscopy-guided anesthetic injection into the joint. He subsequently developed septic embolization to the right thigh he underwent irrigation and debridement of the deep compartment of the right thigh on 2017, this was done by Dr. Carty. The culture from the left hip on the right thigh was staph aureus that was pansensitive to all antibiotic. The culture from the sacrum decubitus ulcer was polymicrobial in nature, E. coli and Proteus are sensitive to Rocephin. He required premedication of for pain control he was treated with IV Dilaudid, fentanyl and p.o. Percocet patient we need to do antibiotic for a total of 4-6 weeks he was transitioned to p.o. Levaquin yesterday . Physical Exam Vital Signs: Temp Pulse Resp BP Pulse Ox 97.3 F 103 H 16 114/68 97 01/26/18 08:04 01/26/18 08:04 01/26/18 08:04 01/26/18 08:04 01/26/18 08:04 Intake & Output 01/25/18 01/26/18 01/27/18 06:59 06:59 06:59 Intake Total 1482 1650 Output Total 1592 4715 Balance -110 -225 Weight 57.9 kg General appearance: PRESENT: no acute distress Eye exam: PRESENT: PERRLA Respiratory exam: PRESENT: clear to auscultation ishan Cardiovascular exam: PRESENT: +S1, +S2 GI/Abdominal exam: PRESENT: soft Neurological exam: PRESENT: alert, CN II-XII grossly intact Skin exam: PRESENT: other - Stage II sacral decubitus ulcer Results Laboratory Results: 01/24/18 05:20 01/24/18 05:20 Impressions: Chest X-Ray 01/05/18 00:00 IMPRESSION: The left subclavian central venous catheter is projected over the left IJ, tip is beyond the superior margin of the image near the cranial junction. Renal Ultrasound 01/06/18 00:00 IMPRESSION: 1. Mild increased bilateral renal cortical echogenicity. This could be seen with medical renal disease. No hydronephrosis. 2. Echogenic material in the base of the urinary bladder likely represents infectious, inflammatory, or hemorrhagic debris. Correlation with urinalysis recommended. Knee X-Ray 01/14/18 00:00 IMPRESSION: HARDWARE IN THE DISTAL FEMUR. NO ACUTE FINDINGS. Fluoroscopy 01/15/18 00:00 IMPRESSION: SATISFACTORY POSTOPERATIVE PELVIS. Hip X-Ray 01/15/18 00:00 IMPRESSION: SATISFACTORY POSTOPERATIVE PELVIS. Body Scan Nuclear Medicine 01/17/18 08:00 IMPRESSION: Increased uptake at both hips as above. Guidance Fluoroscopy 01/18/18 00:00 IMPRESSION: THERAPEUTIC INJECTION OF THE RIGHT HIP JOINT ABOVE. Hip Aspiration/Injection 01/18/18 00:00 IMPRESSION: THERAPEUTIC INJECTION OF THE RIGHT HIP JOINT ABOVE. Lower Extremity CT 01/18/18 00:00 IMPRESSION: 1. Peripherally enhancing collection throughout the posterior thigh compartment measures up to 22 cm in craniocaudal extent. The presence of gas within likely reflects infection/abscess unless there has been recent attempted aspiration or other surgical procedure in the area. Transfer Plan - Disposition Transfer Plan: Patient should continue allevy dressing of the sacral decubiti ulcer Qualifiers - * PATEINT BEING DISCHARGED WITH ANY OF THE FOLLOWING DIAGNOSIS?: No
[2018-01-26 18:45] VITALS: BP 108/67
== END 2018-01-26 20:55 | DRG 854 ==
LOC: INTOOBSV 17:31 → OBSVTOIN 17:31 → 3W 17:31
PROVIDERS: ADMIT Internal Medicine; ATTEND Internal Medicine
PROC: B544ZZA Ultrasonography of Left Jugular Veins, Guidance (ICD-10-PCS; 2018-01-05)
PROC: 05HN33Z Insertion of Infusion Device into Left Internal Jugular Vein, Percutaneous Approach (ICD-10-PCS; 2018-01-05)
PROC: 30233N1 Transfusion of Nonautologous Red Blood Cells into Peripheral Vein, Percutaneous Approach (ICD-10-PCS; 2018-01-06)
PROC: 30233N1 Transfusion of Nonautologous Red Blood Cells into Peripheral Vein, Percutaneous Approach (ICD-10-PCS; 2018-01-09)
PROC: 0SPB0JZ Removal of Synthetic Substitute from Left Hip Joint, Open Approach (ICD-10-PCS; 2018-01-10)
PROC: 0SRB02A Replacement of Left Hip Joint with Metal on Polyethylene Synthetic Substitute, Uncemented, Open Approach (ICD-10-PCS; principal; 2018-01-10 10:15)
PROC: 30233N1 Transfusion of Nonautologous Red Blood Cells into Peripheral Vein, Percutaneous Approach (ICD-10-PCS; 2018-01-12)
PROC: 0QS7XZZ Reposition Left Upper Femur, External Approach (ICD-10-PCS; 2018-01-15)
PROC: 3E0U029 Introduction of Other Anti-infective into Joints, Open Approach (ICD-10-PCS; 2018-01-15)
PROC: 0JBL0ZZ Excision of Right Upper Leg Subcutaneous Tissue and Fascia, Open Approach (ICD-10-PCS; 2018-01-19)
PROC: 0S9900Z Drainage of Right Hip Joint with Drainage Device, Open Approach (ICD-10-PCS; 2018-01-19)
PROC: 30233N1 Transfusion of Nonautologous Red Blood Cells into Peripheral Vein, Percutaneous Approach (ICD-10-PCS; 2018-01-21)
DX: A41.01 Sepsis due to Methicillin susceptible Staphylococcus aureus (principal); L02.416 Cutaneous abscess of left lower limb; L02.415 Cutaneous abscess of right lower limb; N17.9 Acute kidney failure, unspecified; T81.30XA Disruption of wound, unspecified, initial encounter; T84.52XA Infection and inflammatory reaction due to internal left hip prosthesis, initial encounter; T84.021A Dislocation of internal left hip prosthesis, initial encounter; D62 Acute posthemorrhagic anemia; D57.1 Sickle-cell disease without crisis; L89.152 Pressure ulcer of sacral region, stage 2; B96.20 Unspecified Escherichia coli [E. coli] as the cause of diseases classified elsewhere; R01.1 Cardiac murmur, unspecified; K21.9 Gastro-esophageal reflux disease without esophagitis; F32.9 Major depressive disorder, single episode, unspecified; B96.4 Proteus (mirabilis) (morganii) as the cause of diseases classified elsewhere; Z96.642 Presence of left artificial hip joint; Z90.49 Acquired absence of other specified parts of digestive tract; Z79.899 Other long term (current) drug therapy
CPT/HCPCS: 01200; 01210; 20610; 36415; 36430; 71045; 71046; 73522; 76775; 77002; 78306; 80048; 80053; 80076; 81001; 82565; 82570; 82607; 82728; 82746; 82962; 83540; 83550; 83735; 84156; 84466; 85025; 85027; 85045; 85610; 85652; 85730; 86140; 86850; 86900; 86901; 86902; 86920; 86922; 87040; 87070; 87075; 87077; 87086; 87186; 87205; 93005; 93010; A9561; C9290; G0378; G0379; G8978-GP; G8979-GP; J0131; J0330; J0696; J1100; J1170; J1642; J1650; J2020; J2250; J2370; J2405; J2704; J2765; J3010; J3370; J3480; J3490; J7030; J7060; J7120; P9016; Q9969

== ENCOUNTER 2018-02-23 15:50 | Inpatient (IN) | payer MEDICARE, MEDICAID ==
[2018-02-23] MEDS ORDERED: NORMAL SALINE 250 ML IV PRN ×2 (15:57)
[2018-02-23 16:08] LABS: HEMATOCRIT 15.5 % (37.9-51.0); MEAN CORPUSCULAR HGB CONC 32.8 g/dL (32.0-36.0); MEAN CORPUSCULAR VOLUME 88 fl (80-97); PLATELET COUNT 444 10^3/uL (150-450); RED BLOOD COUNT 1.75 10^6/uL (4.35-5.55); WHITE BLOOD COUNT 22.8 10^3/uL (4.0-10.5)
[2018-02-23 16:21] LABS: ALANINE AMINOTRANSFERASE 39 U/L (21-72); ALBUMIN 3.4 g/dL (3.5-5.0); ALKALINE PHOSPHATASE 138 U/L (38-126); ANION GAP 9 (5-19); ASPARTATE AMINO TRANSFERASE 36 U/L (17-59); BILIRUBIN,DIRECT 0.5 mg/dL (0.0-0.4); BILIRUBIN,TOTAL 0.8 mg/dL (0.2-1.3); BLOOD UREA NITROGEN 27 mg/dL (7-20); CARBON DIOXIDE 30 mmol/L (22-30); CHLORIDE 106 mmol/L (98-107); GLUCOSE 111 mg/dL (75-110); POTASSIUM 4.3 mmol/L (3.6-5.0); SODIUM 145.3 mmol/L (137-145); TOTAL PROTEIN 8.4 g/dL (6.3-8.2)
[2018-02-23 16:40] LABS: ABSOLUTE LYMPHOCYTES# (MANUAL) 2.1 10^3/uL (0.5-4.7); ABSOLUTE MONOCYTES # (MANUAL) 0.9 10^3/uL (0.1-1.4); ABSOLUTE NEUTROPHILS# (MANUAL) 19.6 10^3/uL (1.7-8.2); BASOPHILS % (MANUAL) 0 % (0-2); EOSINOPHILS % (MANUAL) 1 % (0-6); LYMPHOCYTES % (MANUAL) 9 % (13-45); MONOCYTES % (MANUAL) 4 % (3-13); SEGMENTED NEUTROPHILS % (MAN) 86 % (42-78); TOTAL CELLS COUNTED 100
[2018-02-23 16:42] LABS: ANISOCYTOSIS 1+; PLATELET COMMENT ADEQUATE; POIKILOCYTOSIS SLIGHT; TARGET CELLS SLIGHT
[2018-02-23 16:45] LABS: HEMOGLOBIN 5.1 g/dL (13.5-17.0)
--- NOTE | 2018-02-23 16:58 | ER Document Report ---
ED General - General Stated Complaint: WEAKNESS Time Seen by Provider: 02/23/18 15:57 Mode of Arrival: Ambulatory Information source: Patient Notes: 28-year-old male history of sickle cell disease chronic anemia who is been transfused multiple times in the past with bilateral hip surgeries who has been septic from this presents with complaints of low hemoglobin per blood work performed at care facility patient denies any fevers or chills denies any new pain or complaints TRAVEL OUTSIDE OF THE [place] IN LAST 30 DAYS: No - HPI Onset: Just prior to arrival Onset/Duration: Sudden Quality of pain: No pain Severity: Moderate Pain Level: Denies Associated symptoms: Weakness Exacerbated by: Denies Relieved by: Denies Similar symptoms previously: Yes Recently seen / treated by doctor: Yes - Related Data Allergies/Adverse Reactions: No Known Drug Allergies Allergy (Unknown, Verified 11/03/17 10:00) Past Medical History - Social History Smoking Status: Never Smoker Cigarette use (# per day): No Chew tobacco use (# tins/day): No Smoking Education Provided: No Family History: Reviewed & Not Pertinent, Other - Past Medical History Cardiac Medical History: Reports: Hx Heart Murmur Denies: Hx Atrial Fibrillation, Hx Congestive Heart Failure, Hx Coronary Artery Disease, Hx Heart Attack, Hx Hypertension, Hx Peripheral Vascular Disease , Hx Pulmonary Embolism Pulmonary Medical History: Denies: Hx Asthma, Hx Bronchitis, Hx COPD, Hx Pneumonia, Hx Tuberculosis Neurological Medical History: Reports: Hx Cerebrovascular Accident - ANEURYSM 2010, LEFT SIDED DEFICIT, Hx Seizures - ON MEDS Endocrine Medical History: Denies: Hx Graves' Disease, Hx Hyperthyroidism, Hx Hypothyroidism Renal/ Medical History: Denies: Hx Peritoneal Dialysis Malignancy Medical History: Denies Hx Leukemia, Denies Hx Lung Cancer GI Medical History: Reports: Hx Gastroesophageal Reflux Disease. Denies: Hx Pancreatitis, Hx Ulcer Musculoskeltal Medical History: Denies Hx Arthritis, Denies Hx Fibromyalgia, Denies Hx Multiple Sclerosis, Denies Hx Muscular Dystrophy Psychiatric Medical History: Reports: Hx Anxiety, Hx Depression Denies: Hx Bipolar Disorder, Hx Dementia, Hx Schizophrenia Traumatic Medical History: Reports: Hx Fractures - proximal femur Infectious Medical History: Denies: Hx HIV Past Surgical History: Reports: Hx Cholecystectomy, Hx Oral Surgery - reconstruction, Hx Orthopedic Surgery - Patient underwent open reduction internal fixation of bilateral proximal fe, Other - Patient tracheostomy and PEG tube placement [facility] 3 years. Denies: Hx Appendectomy, Hx Bowel Surgery, Hx Coronary Artery Bypass Graft, Hx Gastric Bypass Surgery, Hx Herniorrhaphy, Hx Pacemaker, Hx Tonsillectomy - Immunizations Immunizations up to date: Yes Hx Diphtheria, Pertussis, Tetanus Vaccination: Yes Hx Pneumococcal Vaccination: 08/05/12 Review of Systems - Review of Systems Notes: 28-year-old male with sickle cell REVIEW OF SYSTEMS: CONSTITUTIONAL : Denies fever, chills, or sweats. Denies recent illness. EENT: Denies eye, ear, throat, or mouth pain or symptoms. Denies nasal or sinus congestion or discharge. Denies throat, tongue, or mouth swelling or difficulty swallowing. CARDIOVASCULAR: Denies chest pain. Denies palpitations or racing or irregular heart beat. Denies ankle edema. RESPIRATORY: Denies cough, cold, or chest congestion. Denies shortness of breath, difficulty breathing, or wheezing. GASTROINTESTINAL: Denies abdominal pain or distention. Denies nausea, vomiting , or diarrhea. Denies blood in vomitus, stools, or per rectum. Denies black, tarry stools. Denies constipation. GENITOURINARY: Denies difficulty urinating, painful urination, burning, frequency, blood in urine, or discharge. MUSCULOSKELETAL: Denies back or neck pain or stiffness. Denies joint pain or swelling. SKIN: Denies rash, lesions or sores. HEMATOLOGIC : Denies easy bruising or bleeding. LYMPHATIC: Denies swollen, enlarged glands. NEUROLOGICAL: Admits to weakness PSYCHIATRIC: Denies anxiety or stress. Denies depression, suicidal ideation, or homicidal ideation. ALL OTHER SYSTEMS REVIEWED AND NEGATIVE. Dictation was performed using [employer] voice recognition software PHYSICAL EXAMINATION: GENERAL: Chronically ill-appearing 28-year-old male HEAD: Atraumatic, normocephalic. EYES: Pupils equal round and reactive to light, extraocular movements intact, sclera anicteric, conjunctiva are normal. ENT: Nares patent, oropharynx clear without exudates. Moist mucous membranes. NECK: Normal range of motion, supple without lymphadenopathy LUNGS: Breath sounds clear to auscultation bilaterally and equal. No wheezes rales or rhonchi. HEART: Regular rate and rhythm without murmurs ABDOMEN: Soft, nontender, nondistended abdomen. No guarding, no rebound. No masses appreciated. Musculoskeletal: Significant pain with range of motion of hips NEUROLOGICAL: Cranial nerves grossly intact. Normal speech, normal gait. Normal sensory, motor exams PSYCH: Normal mood, normal affect. SKIN: Well-healing stage I decub Physical Exam - Vital signs Vitals: Temp Pulse Resp BP Pulse Ox 99.2 F 100 20 103/65 99 02/23/18 18:24 02/23/18 18:24 02/23/18 18:24 02/23/18 18:24 02/23/18 18:24 Course - Re-evaluation Re-evalutation: 02/23/18 20:06 Patient's white count is noted to be significantly elevated, he was taken off his prophylactic antibiotics that were started by Dr. Marcos for his hips, this occurred approximately 1 week ago, his hemoglobin is noted to be significantly low, we will transfuse and start antibiotics, I spoke with patient's primary care physician and will admit to service - Vital Signs Vital signs: Temp Pulse Resp BP Pulse Ox 99.2 F 100 20 103/65 99 02/23/18 18:24 02/23/18 18:24 02/23/18 18:24 02/23/18 18:24 02/23/18 18:24 - Laboratory Result Diagrams: 02/23/18 15:42 02/23/18 15:42 Laboratory results interpreted by me: 02/23/18 02/23/18 02/23/18 15:42 15:42 16:15 WBC 22.8 H RBC 1.75 L Hgb 5.1 L Hct 15.5 L RDW 16.0 H Seg Neuts % (Manual) 86 H Lymphocytes % (Manual) 9 L Abs Neuts (Manual) 19.6 H Sodium 145.3 H BUN 27 H Glucose 111 H Direct Bilirubin 0.5 H Alkaline Phosphatase 138 H Total Protein 8.4 H Albumin 3.4 L Crossmatch See Detail 02/23/18 17:00 WBC RBC Hgb Hct RDW Seg Neuts % (Manual) Lymphocytes % (Manual) Abs Neuts (Manual) Sodium BUN Glucose Direct Bilirubin Alkaline Phosphatase Total Protein Albumin Crossmatch See Detail Critical Care Note - Critical Care Note Total time excluding time spent on procedures (mins): 34 Comments: 34 minutes of critical care time spent in direct contact evaluating and reevaluating the patient, treating symptoms, reviewing labs and studies and speaking with family and consultants excluding any procedures Discharge - Discharge Clinical Impression: Sickle cell anemia Qualifiers: Sickle-cell associated disorders: with unspecified crisis Qualified Code(s): D57.00 - Hb-SS disease with crisis, unspecified; D57.0 - Hb-SS disease with crisis Leukocytosis Qualifiers: Leukocytosis type: unspecified Qualified Code(s): D72.829 - Elevated white blood cell count, unspecified Condition: Fair Disposition: ADMITTED INPATIENT Admitting Provider: Hospitalist Unit Admitted: Telemetry
[2018-02-23] MEDS ORDERED: CEFTRIAXONE 1 GM/D5W RTU 1 GM/50 ML RTUPB IV ONE (17:39)
[2018-02-23] MEDS ORDERED: CEFTRIAXONE SODIUM 1,000 MG in DEXTROSE 5%-WATER 50 ML IV ONE (18:30)
[2018-02-23 20:59] LABS: PHOSPHORUS 4.7 mg/dL (2.5-4.5)
[2018-02-23] MEDS ORDERED: FOLIC ACID 1 MG TABLET PO ONE (21:00)
[2018-02-23 21:10] LABS: TROPONIN I 0.058 ng/mL
[2018-02-23 21:14] LABS: FREE T4 (FREE THYROXINE) 1.38 ng/dL (0.78-2.19)
[2018-02-23 21:15] LABS: CREATINE KINASE MB < 0.22 ng/mL (<4.55)
[2018-02-23] MEDS: OXYCODONE-ACETAMINOPHEN 5-325 MG TABLET PO PRN (21:21)
[2018-02-23 21:28] LABS: THYROID STIMULATING HORMONE 0.98 uIU/mL (0.47-4.68)
[2018-02-23] MEDS ORDERED: TAMSULOSIN HCL 0.4 MG CAP.SR.24H PO ONE (21:30)
[2018-02-23] MEDS ORDERED: (PENDING PHARMACY ID) (Megestrol Acetate [Megestrol Acetate] 40 MG) PO SCH (22:00)
[2018-02-23] MEDS: MISOPROSTOL 0.2 MG TABLET PO SCH (23:07)
[2018-02-23] MEDS: HYDROXYUREA 500 MG CAPSULE PO SCH (23:07)
[2018-02-23] MEDS: LEVETIRACETAM 500 MG TABLET PO SCH (23:07)
[2018-02-23] MEDS: DICLOFENAC SODIUM 50 MG TABLET.DR PO SCH (23:08)
[2018-02-23] MEDS: MEGESTROL ACETATE 20 MG TABLET PO SCH (23:08)
[2018-02-23] MEDS: LEVOFLOXACIN 750 MG TABLET PO SCH (23:08)
[2018-02-24] MEDS ORDERED: FOLIC ACID 1 MG TABLET PO ONE (02:45)
[2018-02-24] MEDS ORDERED: TAMSULOSIN HCL 0.4 MG CAP.SR.24H PO ONE (02:45)
[2018-02-24 02:47] LABS: ABSOLUTE EOSINOPHILS # (AUTO) 0.3 10^3/uL (0.0-0.6); ABSOLUTE LYMPHOCYTES (AUTO) 1.6 10^3/uL (0.5-4.7); ABSOLUTE MONOCYTES (AUTO) 1.4 10^3/uL (0.1-1.4); ABSOLUTE NEUT (AUTO) 14.6 10^3/uL (1.7-8.2); BASOPHILS % (AUTO) 0.2 % (0-2); EOSINOPHILS % (AUTO) 1.4 % (0-6); HEMATOCRIT 17.6 % (37.9-51.0); LYMPHOCYTES % (AUTO) 8.8 % (13-45); MEAN CORPUSCULAR HEMOGLOBIN 29.3 pg (27.0-33.4); MEAN CORPUSCULAR HGB CONC 34.8 g/dL (32.0-36.0); MONOCYTES % (AUTO) 7.7 % (3-13); PLATELET COUNT 423 10^3/uL (150-450); RED BLOOD COUNT 2.09 10^6/uL (4.35-5.55); RED CELL DISTRIBUTION WIDTH 16.8 % (11.5-14.0); SEGMENTED NEUTROPHILS % (AUTO) 81.9 % (42-78); TOTAL CELLS COUNTED % (AUTO) 100 %; WHITE BLOOD COUNT 17.9 10^3/uL (4.0-10.5)
[2018-02-24 02:49] LABS: HEMOGLOBIN 6.1 g/dL (13.5-17.0)
[2018-02-24 02:50] LABS: MEAN CORPUSCULAR VOLUME 84 fl (80-97)
[2018-02-24 03:05] LABS: ANION GAP 16 (5-19); BLOOD UREA NITROGEN 16 mg/dL (7-20); CALCIUM 9.2 mg/dL (8.4-10.2); CARBON DIOXIDE 24 mmol/L (22-30); CHLORIDE 110 mmol/L (98-107); GLUCOSE 106 mg/dL (75-110); POTASSIUM 4.9 mmol/L (3.6-5.0); SODIUM 149.6 mmol/L (137-145)
[2018-02-24 03:25] LABS: CREATINE KINASE MB < 0.22 ng/mL (<4.55)
[2018-02-24 03:26] LABS: TROPONIN I 0.062 ng/mL
[2018-02-24] MEDS: OXYCODONE-ACETAMINOPHEN 5-325 MG TABLET PO PRN ×3 (07:43→18:51)
[2018-02-24] MEDS: NORMAL SALINE 1000 ML 1,000 ML IV PRN (07:43)
[2018-02-24 09:02] LABS: TROPONIN I 0.059 ng/mL
[2018-02-24 09:06] LABS: ABSOLUTE BASOPHILS # (AUTO) 0.1 10^3/uL (0.0-0.2); ABSOLUTE EOSINOPHILS # (AUTO) 0.3 10^3/uL (0.0-0.6); ABSOLUTE LYMPHOCYTES (AUTO) 1.6 10^3/uL (0.5-4.7); ABSOLUTE MONOCYTES (AUTO) 1.3 10^3/uL (0.1-1.4); ABSOLUTE NEUT (AUTO) 12.6 10^3/uL (1.7-8.2); BASOPHILS % (AUTO) 0.5 % (0-2); CREATINE KINASE MB < 0.22 ng/mL (<4.55); EOSINOPHILS % (AUTO) 2.1 % (0-6); HEMATOCRIT 20.3 % (37.9-51.0); LYMPHOCYTES % (AUTO) 10.2 % (13-45); MEAN CORPUSCULAR HEMOGLOBIN 28.7 pg (27.0-33.4); MEAN CORPUSCULAR HGB CONC 34.1 g/dL (32.0-36.0); MEAN CORPUSCULAR VOLUME 84 fl (80-97); MONOCYTES % (AUTO) 7.9 % (3-13); PLATELET COUNT 391 10^3/uL (150-450); RED BLOOD COUNT 2.41 10^6/uL (4.35-5.55); RED CELL DISTRIBUTION WIDTH 16.6 % (11.5-14.0); SEGMENTED NEUTROPHILS % (AUTO) 79.3 % (42-78); TOTAL CELLS COUNTED % (AUTO) 100 %; WHITE BLOOD COUNT 15.9 10^3/uL (4.0-10.5)
[2018-02-24 09:30] LABS: HEMOGLOBIN 6.9 g/dL (13.5-17.0)
[2018-02-24] MEDS: MEGESTROL ACETATE 20 MG TABLET PO SCH ×2 (11:10→23:55)
[2018-02-24] MEDS: LEVETIRACETAM 500 MG TABLET PO SCH ×2 (11:10→23:54)
[2018-02-24] MEDS: FOLIC ACID 1 MG TABLET PO SCH (11:10)
[2018-02-24] MEDS: DICLOFENAC SODIUM 50 MG TABLET.DR PO SCH (11:11)
[2018-02-24] MEDS: ENOXAPARIN SODIUM INJ 40 MG/0.4 ML DISP.SYRIN SUBCUT SCH (11:12)
[2018-02-24] MEDS: MISOPROSTOL 0.2 MG TABLET PO SCH ×2 (11:12→23:55)
[2018-02-24] MEDS: TAMSULOSIN HCL 0.4 MG CAP.SR.24H PO SCH (18:51)
--- NOTE | 2018-02-24 21:40 | PDOC H&P ---
History of Present Illness Admission Date/PCP: 02/23/18 18:28 RUMA RUTH MD History of Present Illness: EMIL BARNES is a 28 year old male, Patient presently in the assisted for rehabilitation he was recently admitted in this hospital when he had methicillin sensitive staph aureus septicemia associated with infected left hip prosthetics and abscess of the right thigh on that admission he underwent surgical debridement of the left hip and also incision and drainage of the right thigh he had routine blood work in the assisted he was found to have severe anemia with hemoglobin of 5 and severe leukocytosis WBC 22.8 he was referred to the emergency room for evaluation. He has a history of sickle cell disease with sickle cell anemia ,history of multiple blood transfusion. In the emergency room he was evaluated because of the severe leukocytosis and severe anemia hospital admission was advised. There is no localizing source of infection that is apparent in this patient, the left hip is clean there is no drainage ,he has decubiti ulcer in the sacral stage I which is clean ,the right thigh which was incised the last time is clean but he has inflamed right knee suggesting that there could be a potential source of the leukocytosis, he may need MRI of the right knee, orthopedic consultation may be requested depending on the finding of the MRI of the right knee, he is presently empirically started on Levaquin, the last time he was in the hospital the staph aureus that was cultured was pansensitive to all antibiotic. Past Medical History Cardiac Medical History: Reports: Heart Murmur Pulmonary Medical History: Neurological Medical History: Reports: Seizures - ON MEDS GI Medical History: Reports: Gastroesophageal Reflux Disease Musculoskeltal Medical History: Reports: Arthritis Psychiatric Medical History: Reports: Depression Hematology: Reports: Anemia, Sickle Cell Disease, Bleeding Tendencies Past Surgical History Past Surgical History: Reports: Cholecystectomy, Orthopedic Surgery - Patient underwent open reduction internal fixation of bilateral proximal fe, Other - Patient tracheostomy and PEG tube placement [facility] 3 years Social History Smoking Status: Never Smoker Frequency of Alcohol Use: None Hx Recreational Drug Use: No Drugs: None Hx Prescription Drug Abuse: No Family History Family History: Reviewed & Not Pertinent, Other Parental Family History Reviewed: Yes Children Family History Reviewed: Yes Sibling(s) Family History Reviewed.: Yes Medication/Allergy Home Medications: Diclofenac Sodium [Voltaren 50 mg Tablet.] 50 mg PO Q12 01/05/18 Folic Acid [Folvite 1 mg Tablet] 1 mg PO DAILY 01/05/18 Hydroxyurea 500 mg PO DAILY 01/05/18 Levetiracetam 500 mg PO Q12 01/05/18 Megestrol Acetate 40 mg PO Q12 01/05/18 Misoprostol [Cytotec 0.2 mg Tablet] 200 mcg PO Q12 01/05/18 Tamsulosin HCl 0.4 mg PO QPM 01/05/18 Levofloxacin [Levaquin 750 mg Tablet] 750 mg PO DAILY #20 tablet 01/26/18 Oxycodone HCl/Acetaminophen [Percocet 5-325 mg Tablet] 1 tab PO Q6HP PRN Allergies/Adverse Reactions: No Known Drug Allergies Allergy (Unknown, Verified 11/03/17 10:00) Review of Systems Constitutional: ABSENT: chills, fever(s), headache(s), weight gain, weight loss Eyes: ABSENT: visual disturbances Ears: ABSENT: hearing changes Cardiovascular: ABSENT: chest pain, dyspnea on exertion, edema, orthropnea, palpitations Respiratory: ABSENT: cough, hemoptysis Gastrointestinal: ABSENT: abdominal pain, constipation, diarrhea, hematemesis, hematochezia, nausea, vomiting Genitourinary: ABSENT: dysuria, hematuria Musculoskeletal: ABSENT: joint swelling Integumentary: ABSENT: rash, wounds Neurological: ABSENT: abnormal gait, abnormal speech, confusion, dizziness, focal weakness, syncope Psychiatric: ABSENT: anxiety, depression, homidical ideation, suicidal ideation Endocrine: ABSENT: cold intolerance, heat intolerance, menstrual abnormalities, polydipsia, polyuria Hematologic/Lymphatic: ABSENT: easy bleeding, easy bruising, lymphadenopathy Physical Exam Vital Signs: Temp Pulse Resp BP Pulse Ox 98.2 F 103 H 14 128/80 H 100 02/24/18 19:23 02/24/18 19:23 02/24/18 19:23 02/24/18 19:23 02/24/18 19:23 Intake & Output 02/23/18 02/24/18 02/25/18 06:59 06:59 06:59 Intake Total 875 2246 Balance 875 2246 Weight 56.2 kg General appearance: PRESENT: thin Eye exam: PRESENT: PERRLA Respiratory exam: PRESENT: clear to auscultation ishan Cardiovascular exam: PRESENT: +S1, +S2 GI/Abdominal exam: PRESENT: soft Musculoskeletal exam: PRESENT: tenderness - Tenderness, swelling of the right knee Results Laboratory Results: 02/24/18 08:22 02/24/18 02:28 02/24/18 02/24/18 02/24/18 02:28 02:28 08:22 WBC 17.9 H 15.9 H RBC 2.09 L 2.41 L Hgb 6.1 L 6.9 L Hct 17.6 L 20.3 L MCV 84 D 84 MCH 29.3 28.7 MCHC 34.8 34.1 RDW 16.8 H 16.6 H Plt Count 423 391 Seg Neutrophils % 81.9 H 79.3 H Lymphocytes % 8.8 L 10.2 L Monocytes % 7.7 7.9 Eosinophils % 1.4 2.1 Basophils % 0.2 0.5 Absolute Neutrophils 14.6 H 12.6 H Absolute Lymphocytes 1.6 1.6 Absolute Monocytes 1.4 1.3 Absolute Eosinophils 0.3 0.3 Absolute Basophils 0.0 0.1 Sodium 149.6 H Potassium 4.9 Chloride 110 H Carbon Dioxide 24 Anion Gap 16 BUN 16 Creatinine 0.56 Est GFR ( Amer) > 60 Est GFR (Non-Af Amer) > 60 Glucose 106 Calcium 9.2 02/24/18 02/24/18 02:28 08:22 CK-MB (CK-2) < 0.22 < 0.22 Troponin I 0.062 0.059 Assessment & Plan - Diagnosis (1) Sickle cell anemia Qualifiers: Sickle-cell associated disorders: with unspecified crisis Qualified Code(s) : D57.00 - Hb-SS disease with crisis, unspecified; D57.0 - Hb-SS disease with crisis Is this a current diagnosis for this admission?: Yes Plan: Patient is admitted to be transfused with packed red blood cells.He has a history of severe anemia in the past due to sickle cell disease requiring blood transfusion (2) Sacral decubitus ulcer, stage II Is this a current diagnosis for this admission?: Yes Plan: The ulcer is clean does not look infected (3) Leukemoid reaction Is this a current diagnosis for this admission?: Yes Plan: He has severe leukocytosis with a left shift there is no apparent source of infection at this time, the chest x-ray is clear there is no pneumonia on the chest x-ray, there is some swelling of the right knee, MRI of the knee was done there was no collection or abscess or evidence of inflammatory changes to suggest septic knee. Because of his history of sepsis in the past including staph aureus septicemia with septic embolization he will empirically be treated with p.o. Levaquin or actually continued on his p.o. Levaquin he is still presently on Levaquin since the last time he was in the hospital
--- NOTE | 2018-02-24 21:48 | PDOC PROGRESS REPORT ---
Subjective Progress Note for:: 02/24/18 Subjective:: Patient was seen by the bedside, he has sickle cell disease, seems to be in a lot of pain the right knee is swollen and red suggesting inflammation ,MRI of the knee pending Reason For Visit: LEUCOCYTOSIS, CAUSE, SCD SEVERE ANEMIA Physical Exam Vital Signs: Temp Pulse Resp BP Pulse Ox 98.2 F 103 H 14 128/80 H 100 02/24/18 19:23 02/24/18 19:23 02/24/18 19:23 02/24/18 19:23 02/24/18 19:23 Intake & Output 02/23/18 02/24/18 02/25/18 06:59 06:59 06:59 Intake Total 875 2246 Balance 875 2246 Weight 56.2 kg General appearance: PRESENT: mild distress Eye exam: PRESENT: PERRLA Respiratory exam: PRESENT: clear to auscultation ishan Cardiovascular exam: PRESENT: +S1, +S2 Extremities exam: PRESENT: other - There is swelling, tenderness of the right knee Results Laboratory Results: 02/24/18 08:22 02/24/18 02:28 02/24/18 02/24/18 02/24/18 02:28 02:28 08:22 WBC 17.9 H 15.9 H RBC 2.09 L 2.41 L Hgb 6.1 L 6.9 L Hct 17.6 L 20.3 L MCV 84 D 84 MCH 29.3 28.7 MCHC 34.8 34.1 RDW 16.8 H 16.6 H Plt Count 423 391 Seg Neutrophils % 81.9 H 79.3 H Lymphocytes % 8.8 L 10.2 L Monocytes % 7.7 7.9 Eosinophils % 1.4 2.1 Basophils % 0.2 0.5 Absolute Neutrophils 14.6 H 12.6 H Absolute Lymphocytes 1.6 1.6 Absolute Monocytes 1.4 1.3 Absolute Eosinophils 0.3 0.3 Absolute Basophils 0.0 0.1 Sodium 149.6 H Potassium 4.9 Chloride 110 H Carbon Dioxide 24 Anion Gap 16 BUN 16 Creatinine 0.56 Est GFR ( Amer) > 60 Est GFR (Non-Af Amer) > 60 Glucose 106 Calcium 9.2 02/24/18 02/24/18 02:28 08:22 CK-MB (CK-2) < 0.22 < 0.22 Troponin I 0.062 0.059 Assessment & Plan - Diagnosis (1) Sickle cell anemia Qualifiers: Sickle-cell associated disorders: with unspecified crisis Qualified Code(s) : D57.00 - Hb-SS disease with crisis, unspecified; D57.0 - Hb-SS disease with crisis Is this a current diagnosis for this admission?: Yes Plan: Status post blood transfusion (2) Sacral decubitus ulcer, stage II Is this a current diagnosis for this admission?: Yes (3) Sickle cell anemia with pain Is this a current diagnosis for this admission?: Yes Plan: Start Dilaudid as needed, continue Percocet change frequency to every 4 as needed (4) Leukemoid reaction Is this a current diagnosis for this admission?: Yes
[2018-02-24] MEDS ORDERED: KETOROLAC TROMETHAMINE INJ/PF 30 MG/1 ML SDV IV ONE (22:15)
--- NOTE | 2018-02-24 23:06 | RADIOLOGY REPORT (SQ) ---
EXAM DESCRIPTION: MRI RT LOWER JOINT WITHOUT CLINICAL HISTORY: 28 years, Male, MRI rt knee,? septic RT knee COMPARISON: Nuclear medicine bone scan bilateral hips, January 17, 2018, report only. CR, right knee, January 14, 2018, report only. Technique: Conventional noncontrast MRI of the right knee. LIMITATIONS: Hardware susceptibility artifact. FINDINGS: Hardware susceptibility artifact of the distal femur. Visualized bone marrow signal appears within normal limits. Cartilaginous surfaces are smooth and intact. No MRI evidence of osteomyelitis. No significant joint effusion. No abscess. No drainable fluid collection. Cruciate ligaments and menisci appear unremarkable. Medial/lateral/posterolateral support structures appear intact. Popliteal fossa is unremarkable. IMPRESSION: No acute findings of the right knee. Limitation: Hardware fixation of the right distal femur with susceptibility artifact.
--- NOTE | 2018-02-24 23:20 | RADIOLOGY REPORT (SQ) ---
EXAM DESCRIPTION: CHEST SINGLE VIEW CLINICAL HISTORY: 28 years Male, sepsis COMPARISON: January 05, 2018. NUMBER OF VIEWS/TECHNIQUE: 1/AP FINDINGS: Adequate lung volume, clear parenchyma, normal cardiac silhouette, and intact bony thorax. IMPRESSION: No acute cardiopulmonary findings.
[2018-02-24] MEDS: LEVOFLOXACIN 750 MG TABLET PO SCH (23:54)
[2018-02-24] MEDS: HYDROXYUREA 500 MG CAPSULE PO SCH (23:55)
[2018-02-25] MEDS: OXYCODONE-ACETAMINOPHEN 5-325 MG TABLET PO PRN ×3 (01:35→21:35)
[2018-02-25] MEDS: HYDROMORPHONE HCL INJ/PF 2 MG/ML AMPULE IV PRN ×2 (04:39→19:58)
[2018-02-25 04:55] LABS: ABSOLUTE BASOPHILS # (AUTO) 0.1 10^3/uL (0.0-0.2); ABSOLUTE EOSINOPHILS # (AUTO) 0.1 10^3/uL (0.0-0.6); ABSOLUTE LYMPHOCYTES (AUTO) 1.3 10^3/uL (0.5-4.7); ABSOLUTE MONOCYTES (AUTO) 1.8 10^3/uL (0.1-1.4); ABSOLUTE NEUT (AUTO) 15.4 10^3/uL (1.7-8.2); BASOPHILS % (AUTO) 0.3 % (0-2); EOSINOPHILS % (AUTO) 0.8 % (0-6); HEMATOCRIT 23.4 % (37.9-51.0); LYMPHOCYTES % (AUTO) 6.9 % (13-45); MEAN CORPUSCULAR HGB CONC 34.1 g/dL (32.0-36.0); MEAN CORPUSCULAR VOLUME 85 fl (80-97); MONOCYTES % (AUTO) 9.6 % (3-13); PLATELET COUNT 395 10^3/uL (150-450); RED BLOOD COUNT 2.75 10^6/uL (4.35-5.55); SEGMENTED NEUTROPHILS % (AUTO) 82.4 % (42-78); TOTAL CELLS COUNTED % (AUTO) 100 %; WHITE BLOOD COUNT 18.7 10^3/uL (4.0-10.5)
[2018-02-25 05:03] LABS: ANION GAP 13 (5-19); BLOOD UREA NITROGEN 17 mg/dL (7-20); CALCIUM 9.4 mg/dL (8.4-10.2); CARBON DIOXIDE 24 mmol/L (22-30); CHLORIDE 108 mmol/L (98-107); GLUCOSE 98 mg/dL (75-110); POTASSIUM 4.9 mmol/L (3.6-5.0); SODIUM 144.7 mmol/L (137-145)
[2018-02-25] MEDS: KETOROLAC TROMETHAMINE INJ/PF 30 MG/1 ML SDV IV SCH ×3 (06:51→18:22)
[2018-02-25] MEDS: FOLIC ACID 1 MG TABLET PO SCH (10:41)
[2018-02-25] MEDS: MISOPROSTOL 0.2 MG TABLET PO SCH ×2 (10:42→21:35)
[2018-02-25] MEDS: MEGESTROL ACETATE 20 MG TABLET PO SCH ×2 (10:43→21:35)
[2018-02-25] MEDS: LEVETIRACETAM 500 MG TABLET PO SCH ×2 (10:43→21:35)
[2018-02-25] MEDS: ENOXAPARIN SODIUM INJ 40 MG/0.4 ML DISP.SYRIN SUBCUT SCH (10:45)
[2018-02-25] MEDS: TAMSULOSIN HCL 0.4 MG CAP.SR.24H PO SCH (18:22)
[2018-02-25] MEDS: HYDROXYUREA 500 MG CAPSULE PO SCH (21:34)
[2018-02-25] MEDS: LEVOFLOXACIN 750 MG TABLET PO SCH (21:34)
--- NOTE | 2018-02-25 21:53 | PDOC PROGRESS REPORT ---
Subjective Progress Note for:: 02/25/18 Subjective:: Blood culture growing gram-positive cocci,Not sure if this is Staphylococcus or Streptococcus, there is no mention of the cocci in cluster or in chain.. There is still leukocytosis we continue antibiotic Reason For Visit: SEVERE ANEMIA,LEUCOCYTOSIS Physical Exam Vital Signs: Temp Pulse Resp BP Pulse Ox 98.2 F 96 16 90/57 L 99 02/25/18 20:00 02/25/18 20:00 02/25/18 20:00 02/25/18 20:00 02/25/18 20:00 Intake & Output 02/24/18 02/25/18 02/26/18 06:59 06:59 06:59 Intake Total 1931 Balance 193 General appearance: PRESENT: no acute distress Eye exam: PRESENT: PERRLA Respiratory exam: PRESENT: clear to auscultation ishan Cardiovascular exam: PRESENT: +S1, +S2 Neurological exam: PRESENT: alert Results Impressions: Chest X-Ray 02/24/18 00:00 IMPRESSION: No acute cardiopulmonary findings. Lower Extremity MRI 02/24/18 00:00 IMPRESSION: No acute findings of the right knee. Limitation: Hardware fixation of the right distal femur with susceptibility artifact. Assessment & Plan - Diagnosis (1) Sickle cell anemia Qualifiers: Sickle-cell associated disorders: with unspecified crisis Qualified Code(s) : D57.00 - Hb-SS disease with crisis, unspecified; D57.0 - Hb-SS disease with crisis Is this a current diagnosis for this admission?: Yes (2) Septic arthritis of knee, right Qualifiers: Septic arthritis organism: due to unspecified organism Qualified Code(s): M00.9 - Pyogenic arthritis, unspecified Is this a current diagnosis for this admission?: Yes (3) Sacral decubitus ulcer, stage II Is this a current diagnosis for this admission?: Yes (4) Sickle cell anemia with pain Is this a current diagnosis for this admission?: Yes
[2018-02-26] MEDS: OXYCODONE-ACETAMINOPHEN 5-325 MG TABLET PO PRN ×3 (06:46→22:08)
[2018-02-26] MEDS: KETOROLAC TROMETHAMINE INJ/PF 30 MG/1 ML SDV IV SCH ×3 (06:46→18:30)
[2018-02-26 06:48] LABS: ABSOLUTE BASOPHILS # (AUTO) 0.1 10^3/uL (0.0-0.2); ABSOLUTE EOSINOPHILS # (AUTO) 0.2 10^3/uL (0.0-0.6); ABSOLUTE LYMPHOCYTES (AUTO) 1.3 10^3/uL (0.5-4.7); ABSOLUTE MONOCYTES (AUTO) 1.1 10^3/uL (0.1-1.4); ABSOLUTE NEUT (AUTO) 13.5 10^3/uL (1.7-8.2); BASOPHILS % (AUTO) 0.3 % (0-2); EOSINOPHILS % (AUTO) 1.1 % (0-6); HEMATOCRIT 25.5 % (37.9-51.0); HEMOGLOBIN 8.5 g/dL (13.5-17.0); MEAN CORPUSCULAR HEMOGLOBIN 29.1 pg (27.0-33.4); MEAN CORPUSCULAR HGB CONC 33.3 g/dL (32.0-36.0); MEAN CORPUSCULAR VOLUME 87 fl (80-97); PLATELET COUNT 371 10^3/uL (150-450); RED BLOOD COUNT 2.92 10^6/uL (4.35-5.55); SEGMENTED NEUTROPHILS % (AUTO) 83.6 % (42-78); TOTAL CELLS COUNTED % (AUTO) 100 %; WHITE BLOOD COUNT 16.2 10^3/uL (4.0-10.5)
[2018-02-26 07:11] LABS: BLOOD UREA NITROGEN 18 mg/dL (7-20); CALCIUM 9.3 mg/dL (8.4-10.2); GLUCOSE 98 mg/dL (75-110)
[2018-02-26 07:19] LABS: ANION GAP 13 (5-19); CARBON DIOXIDE 23 mmol/L (22-30); CHLORIDE 112 mmol/L (98-107); POTASSIUM 4.4 mmol/L (3.6-5.0); SODIUM 147.8 mmol/L (137-145)
[2018-02-26] MEDS: FOLIC ACID 1 MG TABLET PO SCH (10:31)
[2018-02-26] MEDS: MISOPROSTOL 0.2 MG TABLET PO SCH ×2 (10:31→22:10)
[2018-02-26] MEDS: ENOXAPARIN SODIUM INJ 40 MG/0.4 ML DISP.SYRIN SUBCUT SCH (10:32)
[2018-02-26] MEDS: MEGESTROL ACETATE 20 MG TABLET PO SCH ×2 (10:32→22:10)
[2018-02-26] MEDS: LEVETIRACETAM 500 MG TABLET PO SCH ×2 (10:32→22:09)
--- NOTE | 2018-02-26 13:15 | PDOC CONSULTATION ---
Consultation Consult Date: 02/26/18 Consult reason:: Right thigh pain History of Present Illness Admission Date/PCP: 02/25/18 11:31 RUMA RUTH MD History of Present Illness: EMIL BARNES is a 28 year old male who is well known to me from previous orthopedic admissions. Most recently the patient was admitted with a sacral decubitus which cultured positive for pansensitive staph and subsequent left prosthetic hip infections and left quadriceps abscess. Patient most recently has been admitted with a significant anemia but also a leukocytosis. Patient complains of right thigh pain but continues to ambulate with his uncle by his own report. This may or may not be accurate. Most recently an MRI scan is up and obtained of the right knee and interpreted as normal. Past Medical History Cardiac Medical History: Reports: Heart Murmur Denies: Atrial Fibrillation, Congestive Heart Failure, Coronary Artery Disease, Myocardial Infarction, Hypertension, Peripheral Vascular Disease, Pulmonary Embolism Pulmonary Medical History: Denies: Asthma, Bronchitis, Chronic Obstructive Pulmonary Disease (COPD), Pneumonia, Tuberculosis Neurological Medical History: Reports: Seizures - ON MEDS Endocrine Medical History: Denies: Hyperthyroidism, Hypothyroidism Malignancy Medical History: Denies: Leukemia, Lung Cancer GI Medical History: Reports: Gastroesophageal Reflux Disease Musculoskeltal Medical History: Reports: Arthritis Denies: Fibromyalgia Psychiatric Medical History: Reports: Depression Denies: Bipolar Disorder, Dementia Hematology: Reports: Anemia, Sickle Cell Disease, Bleeding Tendencies Denies: Hemophilia Infectious Medical History: Denies: HIV Past Surgical History Past Surgical History: Reports: Cholecystectomy, Orthopedic Surgery - Patient underwent open reduction internal fixation of bilateral proximal fe, Other - Patient tracheostomy and PEG tube placement [facility] 3 years Denies: Appendectomy, Coronary Artery Bypass Graft, Gastric Bypass Surgery, Herniorrhaphy, Pacemaker, Tonsillectomy Social History Information Source: Patient, Relative, DrSherice Office, [facility] Records Smoking Status: Never Smoker Frequency of Alcohol Use: None Hx Recreational Drug Use: No Drugs: None Hx Prescription Drug Abuse: No Family History Family History: Reviewed & Not Pertinent, Other Parental Family History Reviewed: No Children Family History Reviewed: No Sibling(s) Family History Reviewed.: No Medication/Allergy Home Medications: Diclofenac Sodium [Voltaren 50 mg Tablet.] 50 mg PO Q12 01/05/18 Folic Acid [Folvite 1 mg Tablet] 1 mg PO DAILY 01/05/18 Hydroxyurea 500 mg PO DAILY 01/05/18 Levetiracetam 500 mg PO Q12 01/05/18 Megestrol Acetate 40 mg PO Q12 01/05/18 Misoprostol [Cytotec 0.2 mg Tablet] 200 mcg PO Q12 01/05/18 Tamsulosin HCl 0.4 mg PO QPM 01/05/18 Levofloxacin [Levaquin 750 mg Tablet] 750 mg PO DAILY #20 tablet 01/26/18 Oxycodone HCl/Acetaminophen [Percocet 5-325 mg Tablet] 1 tab PO Q6HP PRN Allergies/Adverse Reactions: No Known Drug Allergies Allergy (Unknown, Verified 11/03/17 10:00) Review of Systems All systems: as per PMH Physical Exam Vital Signs: Temp Pulse Resp BP Pulse Ox 36.5 C 95 15 122/71 99 02/26/18 11:32 02/26/18 11:32 02/26/18 11:32 02/26/18 11:32 02/26/18 11:32 Intake & Output 02/25/18 02/26/18 02/27/18 06:59 06:59 06:59 Intake Total 3056 Balance 3056 Weight 62.1 kg Physical Exam: Patient is a thin somewhat somnolent black male at about his usual state of interactiveness. He is complaining of right thigh pain. He is lying in a hospital bed. General appearance: PRESENT: no acute distress Respiratory exam: PRESENT: unlabored Cardiovascular exam: PRESENT: RRR Pulses: PRESENT: +1 pedal pulses bilateral Vascular exam: PRESENT: normal capillary refill GI/Abdominal exam: PRESENT: soft Rectal exam: PRESENT: deferred Musculoskeletal exam: PRESENT: other - Patient has an area within the vastus lateralis at the junction of the proximal middle thirds which is firm and tender to palpation. The overlying skin is not involved there is no skin induration or erythema. There is no drainage. Passive range of motion of the knee is painful. Neurological exam: PRESENT: alert, awake, oriented to person Results Laboratory Results: 02/26/18 06:11 02/26/18 06:11 02/26/18 02/26/18 06:11 06:11 WBC 16.2 H RBC 2.92 L Hgb 8.5 L Hct 25.5 L MCV 87 MCH 29.1 MCHC 33.3 RDW 16.0 H Plt Count 371 Seg Neutrophils % 83.6 H Lymphocytes % 8.0 L Monocytes % 7.0 Eosinophils % 1.1 Basophils % 0.3 Absolute Neutrophils 13.5 H Absolute Lymphocytes 1.3 Absolute Monocytes 1.1 Absolute Eosinophils 0.2 Absolute Basophils 0.1 Sodium 147.8 H Potassium 4.4 Chloride 112 H Carbon Dioxide 23 Anion Gap 13 BUN 18 Creatinine 0.53 Est GFR ( Amer) > 60 Est GFR (Non-Af Amer) > 60 Glucose 98 Calcium 9.3 Impressions: Chest X-Ray 02/24/18 00:00 IMPRESSION: No acute cardiopulmonary findings. Lower Extremity MRI 02/24/18 00:00 IMPRESSION: No acute findings of the right knee. Limitation: Hardware fixation of the right distal femur with susceptibility artifact. Status: Imported from PACS Assessment & Plan - Diagnosis (1) Abscess of right thigh Is this a current diagnosis for this admission?: Yes Plan: 28-year-old black male sickle cell disease, positive blood cultures for staph and right thigh pain. I think the previous MRI scan of the knee was distal and did not capture what I suspect to be an abscess process in the right vastus lateralis. I have reordered the MRI scan with contrast. - Time Time Spent: 50 to 70 Minutes Anticipated discharge: SNF Within: Other
--- NOTE | 2018-02-26 15:21 | PDOC PROGRESS REPORT ---
Subjective Progress Note for:: 02/26/18 Subjective:: Patient was seen by the bedside, he was seen by orthopedic, MRI of the right hip is ordered Reason For Visit: SEVERE ANEMIA,LEUCOCYTOSIS Physical Exam Vital Signs: Temp Pulse Resp BP Pulse Ox 97.7 F 95 15 122/71 99 02/26/18 11:32 02/26/18 11:32 02/26/18 11:32 02/26/18 11:32 02/26/18 11:32 Intake & Output 02/25/18 02/26/18 02/27/18 06:59 06:59 06:59 Intake Total 3056 118 Balance 3056 118 Weight 62.1 kg General appearance: PRESENT: no acute distress Eye exam: PRESENT: PERRLA Respiratory exam: PRESENT: clear to auscultation ishan Cardiovascular exam: PRESENT: +S1, +S2 GI/Abdominal exam: PRESENT: soft Results Laboratory Results: 02/26/18 06:11 02/26/18 06:11 02/26/18 02/26/18 06:11 06:11 WBC 16.2 H RBC 2.92 L Hgb 8.5 L Hct 25.5 L MCV 87 MCH 29.1 MCHC 33.3 RDW 16.0 H Plt Count 371 Seg Neutrophils % 83.6 H Lymphocytes % 8.0 L Monocytes % 7.0 Eosinophils % 1.1 Basophils % 0.3 Absolute Neutrophils 13.5 H Absolute Lymphocytes 1.3 Absolute Monocytes 1.1 Absolute Eosinophils 0.2 Absolute Basophils 0.1 Sodium 147.8 H Potassium 4.4 Chloride 112 H Carbon Dioxide 23 Anion Gap 13 BUN 18 Creatinine 0.53 Est GFR ( Amer) > 60 Est GFR (Non-Af Amer) > 60 Glucose 98 Calcium 9.3 Impressions: Chest X-Ray 02/24/18 00:00 IMPRESSION: No acute cardiopulmonary findings. Assessment & Plan - Diagnosis (1) Sickle cell anemia Qualifiers: Sickle-cell associated disorders: with unspecified crisis Qualified Code(s) : D57.00 - Hb-SS disease with crisis, unspecified; D57.0 - Hb-SS disease with crisis Is this a current diagnosis for this admission?: Yes (2) Septic arthritis of knee, right Qualifiers: Septic arthritis organism: due to unspecified organism Qualified Code(s): M00.9 - Pyogenic arthritis, unspecified Is this a current diagnosis for this admission?: Yes (3) Sacral decubitus ulcer, stage II Is this a current diagnosis for this admission?: Yes (4) Sickle cell anemia with pain Is this a current diagnosis for this admission?: Yes
--- NOTE | 2018-02-26 16:04 | RADIOLOGY REPORT (SQ) ---
EXAM DESCRIPTION: MRI RT LOWER EXTREMITY COMBO COMPLETED DATE/TIME: 02/26/2018 3:41 pm REASON FOR STUDY: SWELLING AND PAIN, MRI R THIGH WITH CONTRAST D50.8 OTHER IRON DEFICIENCY ANEMIAS COMPARISON: None. TECHNIQUE: Multiplanar fat and fluid sensitive sequences precontrast including T1, T2 fat saturated or STIR. Post contrast T1 fat saturated sequences after IV gadolinium administration. CONTRAST TYPE AND DOSE: 12 mL Prohance. RENAL FUNCTION: GFR > 60. LIMITATIONS: Motion. Susceptibility artifact. FINDINGS: There is susceptibility artifact associated with wisam and hip compression screw of femoral neck fracture. Posterior compartment fluid collection measuring approximately 2.9 x 6.4 cm in AP by transverse diameter by 22 cm craniocaudal diameter is following fluid on all sequences with no enhanc ement. Edema extends into the soft tissues between the posterior margin of the femur and the fluid c ollection. More diffuse edema in the musculature of the more proximal thigh. No organized deep flui d collection. No edema in the adjacent cortex. IMPRESSION: Cellulitis and myositis without evidence of deep abscess. More superficial posterior fl uid collection not significantly changed from 01/18/2018. No evidence of osteomyelitis. TECHNICAL DOCUMENTATION: JOB ID: [id number] [employer]- All Rights Reserved Reading location - IP/workstation name: [email or web address]
[2018-02-26] MEDS: TAMSULOSIN HCL 0.4 MG CAP.SR.24H PO SCH (18:30)
[2018-02-26] MEDS: LEVOFLOXACIN 750 MG TABLET PO SCH (22:09)
[2018-02-26] MEDS: HYDROXYUREA 500 MG CAPSULE PO SCH (22:10)
[2018-02-26] MEDS: NORMAL SALINE 1000 ML 1,000 ML IV PRN (22:11)
[2018-02-27] MEDS: KETOROLAC TROMETHAMINE INJ/PF 30 MG/1 ML SDV IV SCH ×2 (00:15→05:36)
--- NOTE | 2018-02-27 07:54 | PDOC PROGRESS REPORT ---
Subjective Progress Note for:: 02/27/18 Reason For Visit: SEVERE ANEMIA,LEUCOCYTOSIS 28-year-old black male sickle cell disease now admitted with anemia, leukocytosis, positive blood cultures, and continued right thigh tenderness status post an I&D of an abscess. Physical Exam Vital Signs: Temp Pulse Resp BP Pulse Ox 37.2 C 99 16 96/45 L 99 02/27/18 00:35 02/27/18 00:35 02/27/18 00:35 02/27/18 00:35 02/27/18 00:35 Intake & Output 02/26/18 02/27/18 02/28/18 06:59 06:59 06:59 Intake Total 3056 3168 Balance 3056 3168 Weight 62.1 kg 62.9 kg Physical Exam: Thin frail appearing black male lying in bed in no apparent discomfort. General appearance: PRESENT: no acute distress, mild distress Respiratory exam: PRESENT: unlabored Cardiovascular exam: PRESENT: RRR Pulses: PRESENT: +1 pedal pulses bilateral Vascular exam: PRESENT: normal capillary refill GI/Abdominal exam: PRESENT: soft Rectal exam: PRESENT: deferred Extremities exam: PRESENT: other - Patient continues to have a tender soft tissue prominence in the vastus lateralis measuring approximately 20 cm x 10 cm. Pain in this area is reproduced by knee flexion. Neurological exam: PRESENT: alert, awake, other - Patient with significant short -term memory deficit Skin exam: PRESENT: dry, intact, warm. ABSENT: cyanosis, rash Results Laboratory Results: 02/26/18 06:11 02/26/18 06:11 Impressions: Chest X-Ray 02/24/18 00:00 IMPRESSION: No acute cardiopulmonary findings. Lower Extremity MRI 02/26/18 13:12 IMPRESSION: Cellulitis and myositis without evidence of deep abscess. More superficial posterior fluid collection not significantly changed from 2017. No evidence of osteomyelitis. Status: Imported from PACS Assessment & Plan - Diagnosis (1) Abscess of right thigh Is this a current diagnosis for this admission?: Yes Plan: Repeat MRI scan demonstrates a fluid collection in the vastus lateralis. In light of the positive blood cultures which indicate an underlying bacteremia, I am suspicious of this fluid collection being an abscess and the source of the bacteremia. I discussed the situation with his uncle, David this morning. I tentatively placed the patient on the operative schedule for tomorrow for an I& D of that area. - Time Time Spent with patient: 15-24 minutes Anticipated discharge: Other Within: Other
[2018-02-27] MEDS: HYDROMORPHONE HCL INJ/PF 2 MG/ML AMPULE IV PRN ×3 (08:04→19:52)
[2018-02-27 09:36] LABS: APPEARANCE,URINE CLEAR; BILIRUBIN,URINE NEGATIVE (NEGATIVE); COLOR,URINE YELLOW; GLUCOSE, URINE NEGATIVE (NEGATIVE); KETONES,URINE NEGATIVE (NEGATIVE); LEUKOCYTE ESTERASE,URINE NEGATIVE (NEGATIVE); NITRITE,URINE NEGATIVE (NEGATIVE); PROTEIN,URINE NEGATIVE (NEGATIVE); URINE SPECIFIC GRAVITY 1.013; UROBILINOGEN,URINE NEGATIVE mg/dL (<2.0)
[2018-02-27] MEDS ORDERED: RINGERS SOLUTION,LACTATED 1,000 ML IV PRN (10:53)
[2018-02-27] MEDS: DICLOFENAC SODIUM 50 MG TABLET.DR PO SCH ×2 (10:55→21:28)
[2018-02-27] MEDS: ENOXAPARIN SODIUM INJ 40 MG/0.4 ML DISP.SYRIN SUBCUT SCH (10:55)
[2018-02-27] MEDS: LEVETIRACETAM 500 MG TABLET PO SCH ×2 (10:56→21:27)
[2018-02-27] MEDS: MISOPROSTOL 0.2 MG TABLET PO SCH ×2 (10:56→21:28)
[2018-02-27] MEDS: MEGESTROL ACETATE 20 MG TABLET PO SCH ×2 (10:56→21:30)
[2018-02-27] MEDS: FOLIC ACID 1 MG TABLET PO SCH (10:56)
[2018-02-27] MEDS: OXYCODONE-ACETAMINOPHEN 5-325 MG TABLET PO PRN ×3 (10:57→21:25)
--- NOTE | 2018-02-27 12:34 | PDOC PROGRESS REPORT ---
Subjective Progress Note for:: 02/27/18 Subjective:: Patient now have an apparent swelling of the right thigh suggesting the source of infection, the blood culture is growing gram positive cocci most likely staph aureus, he was seen by orthopedic scheduled for an I&D Reason For Visit: SEVERE ANEMIA,LEUCOCYTOSIS Physical Exam Vital Signs: Temp Pulse Resp BP Pulse Ox 98.0 F 99 14 108/69 99 02/27/18 11:38 02/27/18 11:38 02/27/18 11:38 02/27/18 11:38 02/27/18 11:38 Intake & Output 02/26/18 02/27/18 02/28/18 06:59 06:59 06:59 Intake Total 3056 3168 400 Output Total 400 Balance 3056 3168 0 Weight 62.1 kg 62.9 kg General appearance: PRESENT: no acute distress, well-developed, well-nourished Head exam: PRESENT: atraumatic, normocephalic Eye exam: PRESENT: conjunctiva pink, EOMI, PERRLA Ear exam: PRESENT: normal external ear exam Mouth exam: PRESENT: moist, tongue midline Neck exam: PRESENT: full ROM Respiratory exam: PRESENT: clear to auscultation ishan Cardiovascular exam: PRESENT: RRR, +S1, +S2 Vascular exam: PRESENT: normal capillary refill GI/Abdominal exam: PRESENT: normal bowel sounds, soft Rectal exam: PRESENT: deferred Extremities exam: PRESENT: tenderness, other - There is swelling, tenderness of the right thigh Neurological exam: PRESENT: alert Psychiatric exam: PRESENT: appropriate affect, normal mood Skin exam: PRESENT: dry, intact, warm Results Laboratory Results: 02/26/18 06:11 02/26/18 06:11 02/27/18 08:43 Urine Color YELLOW Urine Appearance CLEAR Urine pH 5.0 Ur Specific [place] 1.013 Urine Protein NEGATIVE Urine Glucose (UA) NEGATIVE Urine Ketones NEGATIVE Urine Blood SMALL H Urine Nitrite NEGATIVE Ur Leukocyte Esterase NEGATIVE Urine WBC (Auto) 1 Urine RBC (Auto) 3 Impressions: Chest X-Ray 02/24/18 00:00 IMPRESSION: No acute cardiopulmonary findings. Lower Extremity MRI 02/26/18 13:12 IMPRESSION: Cellulitis and myositis without evidence of deep abscess. More superficial posterior fluid collection not significantly changed from 2017. No evidence of osteomyelitis. Assessment & Plan - Diagnosis (1) Sickle cell anemia Qualifiers: Sickle-cell associated disorders: with unspecified crisis Qualified Code(s) : D57.00 - Hb-SS disease with crisis, unspecified; D57.0 - Hb-SS disease with crisis Is this a current diagnosis for this admission?: Yes (2) Sacral decubitus ulcer, stage II Is this a current diagnosis for this admission?: Yes (3) Sickle cell anemia with pain Is this a current diagnosis for this admission?: Yes (4) Septicemia Is this a current diagnosis for this admission?: Yes Plan: Continue antibiotic (5) Abscess of right thigh Is this a current diagnosis for this admission?: Yes Plan: Scheduled for I&D
[2018-02-27] MEDS: TAMSULOSIN HCL 0.4 MG CAP.SR.24H PO SCH (17:04)
[2018-02-27] MEDS: HYDROXYUREA 500 MG CAPSULE PO SCH (21:27)
[2018-02-27] MEDS: LEVOFLOXACIN 750 MG TABLET PO SCH (21:28)
[2018-02-28] MEDS: HYDROMORPHONE HCL INJ/PF 2 MG/ML AMPULE IV PRN ×4 (04:11→22:28)
[2018-02-28] MEDS ORDERED: LIDOCAINE 2% INJ-PF (20 MG/ML) 2 ML AMPUL ONE (09:39)
[2018-02-28] MEDS ORDERED: ONDANSETRON HCL INJ/PF 4 MG/2 ML SDV ONE (09:39)
[2018-02-28] MEDS ORDERED: SUCCINYLCHOLINE CHLORIDE INJ 200 MG/10 ML VIAL ONE (09:39)
[2018-02-28] MEDS ORDERED: DEXAMETHASONE SOD PHOSPHATE INJ 4 MG/1 ML VIAL ONE (09:39)
[2018-02-28] MEDS ORDERED: BACITRACIN INJ 50,000 UNIT VIAL ONE ×2 (09:40→10:22)
--- NOTE | 2018-02-28 10:26 | Operative Report ---
Operative Report DATE OF SURGERY: 02/28/18 PREOPERATIVE DIAGNOSIS: Recurrent right thigh abscess OPERATION: I&D right thigh SURGEON: YON FRASER ANESTHESIA: GA TISSUE REMOVED OR ALTERED: Cultures 2 to microbiology ESTIMATED BLOOD LOSS: Minimal PROCEDURE: The patient underwent left lateral decubitus position on the operating table the right lower extremity hindquarter prepped and draped in sterile fashion. With the previous lateral surgical approach to the thigh a 1 inch longitudinal incision is opened in the midportion of the previous scar. Upon penetrating the iliotibial band a large amount of purulent fluid is encountered. This is sent for culture and sensitivity. The internal loculations were broken up with a finger and debrided bluntly. The wound is then irrigated with 3 L normal normal saline containing bacitracin.. The wound is packed with iodoform gauze and closed with 2 interrupted sutures one on either end. The patient's return to the PACU in satisfactory condition.
[2018-02-28] MEDS ORDERED: MORPHINE SULFATE 10 MG/ML INJ IV PRN ×2 (10:45→10:46)
[2018-02-28] MEDS ORDERED: MEPERIDINE HCL/PF INJ 25 MG/1 ML DISP.SYRIN IV PRN (10:46)
[2018-02-28] MEDS ORDERED: ONDANSETRON HCL INJ/PF 4 MG/2 ML SDV IV PRN (10:46)
[2018-02-28] MEDS ORDERED: ONDANSETRON 4 MG TAB.RAPDIS SL PRN (10:46)
[2018-02-28] MEDS ORDERED: DIPHENHYDRAMINE HCL 50 MG/ML VIAL IV PRN (10:46)
[2018-02-28] MEDS ORDERED: PROMETHAZINE HCL INJ 25 MG/1 ML VIAL IV PRN ×2 (10:46)
[2018-02-28] MEDS ORDERED: FENTANYL CITRATE INJ/PF 100 MCG/2 ML AMPUL IV PRN ×3 (10:46)
[2018-02-28] MEDS: FENTANYL CITRATE INJ/PF 100 MCG/2 ML AMPUL ONE ×2 (10:50→10:55)
[2018-02-28] MEDS: MEGESTROL ACETATE 20 MG TABLET PO SCH ×2 (12:21→21:08)
[2018-02-28] MEDS: LEVETIRACETAM 500 MG TABLET PO SCH ×2 (12:21→21:09)
[2018-02-28] MEDS: DICLOFENAC SODIUM 50 MG TABLET.DR PO SCH ×2 (12:21→21:09)
[2018-02-28] MEDS: FOLIC ACID 1 MG TABLET PO SCH (12:22)
[2018-02-28] MEDS: MISOPROSTOL 0.2 MG TABLET PO SCH ×2 (12:22→21:09)
[2018-02-28] MEDS: ENOXAPARIN SODIUM INJ 40 MG/0.4 ML DISP.SYRIN SUBCUT SCH (12:25)
[2018-02-28] MEDS: TAMSULOSIN HCL 0.4 MG CAP.SR.24H PO SCH (17:31)
[2018-02-28] MEDS ORDERED: LEVOFLOXACIN 500 MG/D5W RTU 500 MG/100 ML RTUPB IV SCH (18:00)
[2018-02-28 19:11] LABS: HEMATOCRIT 23.9 % (37.9-51.0); MEAN CORPUSCULAR HEMOGLOBIN 28.9 pg (27.0-33.4); MEAN CORPUSCULAR HGB CONC 33.4 g/dL (32.0-36.0); MEAN CORPUSCULAR VOLUME 87 fl (80-97); PLATELET COUNT 537 10^3/uL (150-450); RED BLOOD COUNT 2.76 10^6/uL (4.35-5.55); RED CELL DISTRIBUTION WIDTH 15.7 % (11.5-14.0); WHITE BLOOD COUNT 17.3 10^3/uL (4.0-10.5)
[2018-02-28 19:23] LABS: ALANINE AMINOTRANSFERASE 34 U/L (21-72); ALKALINE PHOSPHATASE 148 U/L (38-126); ANION GAP 12 (5-19); ASPARTATE AMINO TRANSFERASE 26 U/L (17-59); BILIRUBIN,DIRECT 0.3 mg/dL (0.0-0.4); BILIRUBIN,TOTAL 0.3 mg/dL (0.2-1.3); BLOOD UREA NITROGEN 18 mg/dL (7-20); CALCIUM 9.5 mg/dL (8.4-10.2); CARBON DIOXIDE 27 mmol/L (22-30); CHLORIDE 106 mmol/L (98-107); GLUCOSE 152 mg/dL (75-110); POTASSIUM 4.9 mmol/L (3.6-5.0); SODIUM 144.8 mmol/L (137-145); TOTAL PROTEIN 7.8 g/dL (6.3-8.2)
[2018-02-28 19:28] LABS: ABSOLUTE LYMPHOCYTES# (MANUAL) 0.5 10^3/uL (0.5-4.7); ABSOLUTE NEUTROPHILS# (MANUAL) 16.8 10^3/uL (1.7-8.2); BASOPHILS % (MANUAL) 0 % (0-2); EOSINOPHILS % (MANUAL) 0 % (0-6); LYMPHOCYTES % (MANUAL) 3 % (13-45); MONOCYTES % (MANUAL) 0 % (3-13); SEGMENTED NEUTROPHILS % (MAN) 97 % (42-78); TOTAL CELLS COUNTED 100
[2018-02-28 19:30] LABS: ANISOCYTOSIS SLIGHT; OVALOCYTES SLIGHT; PLATELET COMMENT INCREASED; POIKILOCYTOSIS 1+; TARGET CELLS 1+; TOXIC GRANULATION 1+; TOXIC VACUOLATION PRESENT
--- NOTE | 2018-02-28 20:59 | PDOC PROGRESS REPORT ---
Subjective Progress Note for:: 02/28/18 Subjective:: Patient with recurrent staph aureus abscess of the right thigh with MSSA status post I&D Reason For Visit: SEVERE ANEMIA,LEUCOCYTOSIS Physical Exam Vital Signs: Temp Pulse Resp BP Pulse Ox 98.3 F 109 H 18 124/75 98 02/28/18 19:24 02/28/18 19:24 02/28/18 19:24 02/28/18 19:24 02/28/18 19:24 Intake & Output 02/27/18 02/28/18 03/01/18 06:59 06:59 06:59 Intake Total 3168 3310 7058 Output Total 400 3020 Balance 3168 2910 4038 Weight 62.9 kg 60.9 kg General appearance: PRESENT: no acute distress Eye exam: PRESENT: PERRLA Respiratory exam: PRESENT: clear to auscultation ishan Cardiovascular exam: PRESENT: +S1, +S2 GI/Abdominal exam: PRESENT: soft Neurological exam: PRESENT: alert Results Laboratory Results: 02/28/18 18:35 02/28/18 18:35 02/28/18 02/28/18 18:35 18:35 WBC 17.3 H RBC 2.76 L Hgb 8.0 L Hct 23.9 L MCV 87 MCH 28.9 MCHC 33.4 RDW 15.7 H Plt Count 537 H Seg Neutrophils % Not Reportable Lymphocytes % Not Reportable Monocytes % Not Reportable Eosinophils % Not Reportable Basophils % Not Reportable Absolute Neutrophils Not Reportable Absolute Lymphocytes Not Reportable Absolute Monocytes Not Reportable Absolute Eosinophils Not Reportable Absolute Basophils Not Reportable Sodium 144.8 Potassium 4.9 Chloride 106 Carbon Dioxide 27 Anion Gap 12 BUN 18 Creatinine 0.59 Est GFR ( Amer) > 60 Est GFR (Non-Af Amer) > 60 Glucose 152 H Calcium 9.5 Total Bilirubin 0.3 AST 26 ALT 34 Alkaline Phosphatase 148 H Total Protein 7.8 Albumin 3.0 L Impressions: Chest X-Ray 02/24/18 00:00 IMPRESSION: No acute cardiopulmonary findings. Lower Extremity MRI 02/26/18 13:12 IMPRESSION: Cellulitis and myositis without evidence of deep abscess. More superficial posterior fluid collection not significantly changed from 2017. No evidence of osteomyelitis. Assessment & Plan - Diagnosis (1) Sickle cell anemia Qualifiers: Sickle-cell associated disorders: with unspecified crisis Qualified Code(s) : D57.00 - Hb-SS disease with crisis, unspecified; D57.0 - Hb-SS disease with crisis Is this a current diagnosis for this admission?: Yes (2) Sacral decubitus ulcer, stage II Is this a current diagnosis for this admission?: Yes (3) Sickle cell anemia with pain Is this a current diagnosis for this admission?: Yes (4) Septicemia Is this a current diagnosis for this admission?: Yes (5) Abscess of right thigh Is this a current diagnosis for this admission?: Yes (6) Septicemia due to Staphylococcus aureus Is this a current diagnosis for this admission?: Yes Plan: Continue IV antibiotic
[2018-02-28] MEDS: HYDROXYUREA 500 MG CAPSULE PO SCH (22:28)
[2018-03-01] MEDS: RINGERS SOLUTION,LACTATED 1,000 ML IV PRN ×2 (01:55→16:58)
[2018-03-01] MEDS: OXYCODONE HCL IR 5 MG TABLET PO PRN ×3 (01:55→16:58)
[2018-03-01 06:25] LABS: HEMATOCRIT 22.2 % (37.9-51.0); MEAN CORPUSCULAR HEMOGLOBIN 29.1 pg (27.0-33.4); MEAN CORPUSCULAR HGB CONC 33.3 g/dL (32.0-36.0); MEAN CORPUSCULAR VOLUME 88 fl (80-97); PLATELET COUNT 391 10^3/uL (150-450); RED BLOOD COUNT 2.53 10^6/uL (4.35-5.55); RED CELL DISTRIBUTION WIDTH 15.6 % (11.5-14.0)
--- NOTE | 2018-03-01 06:28 | PDOC PROGRESS REPORT ---
Subjective Progress Note for:: 03/01/18 Reason For Visit: SEVERE ANEMIA,LEUCOCYTOSIS 28-year-old black male status post multiple musculoskeletal interventions most recently recently status post a right thigh I&D yesterday. Gram stain indicates of present a gram-positive cocci. White blood cell count is increased to 17.3 thousand. Hematocrit stable at 23.9. Patient remains afebrile. Physical Exam Vital Signs: Temp Pulse Resp BP Pulse Ox 37.5 C 104 H 18 120/68 97 02/28/18 23:26 02/28/18 23:26 02/28/18 23:26 02/28/18 23:26 02/28/18 23:26 Intake & Output 02/27/18 02/28/18 03/01/18 06:59 06:59 06:59 Intake Total 3168 3310 8658 Output Total 400 3020 Balance 3168 2910 5638 Weight 62.9 kg 60.9 kg 62.8 kg General appearance: PRESENT: no acute distress Respiratory exam: PRESENT: unlabored Cardiovascular exam: PRESENT: RRR Extremities exam: PRESENT: other - Right thigh dressing dry and intact. Results Laboratory Results: 02/28/18 02/28/18 18:35 18:35 WBC 17.3 H RBC 2.76 L Hgb 8.0 L Hct 23.9 L MCV 87 MCH 28.9 MCHC 33.4 RDW 15.7 H Plt Count 537 H Seg Neutrophils % Not Reportable Lymphocytes % Not Reportable Monocytes % Not Reportable Eosinophils % Not Reportable Basophils % Not Reportable Absolute Neutrophils Not Reportable Absolute Lymphocytes Not Reportable Absolute Monocytes Not Reportable Absolute Eosinophils Not Reportable Absolute Basophils Not Reportable Sodium 144.8 Potassium 4.9 Chloride 106 Carbon Dioxide 27 Anion Gap 12 BUN 18 Creatinine 0.59 Est GFR ( Amer) > 60 Est GFR (Non-Af Amer) > 60 Glucose 152 H Calcium 9.5 Total Bilirubin 0.3 AST 26 ALT 34 Alkaline Phosphatase 148 H Total Protein 7.8 Albumin 3.0 L Impressions: Chest X-Ray 02/24/18 00:00 IMPRESSION: No acute cardiopulmonary findings. Lower Extremity MRI 02/26/18 13:12 IMPRESSION: Cellulitis and myositis without evidence of deep abscess. More superficial posterior fluid collection not significantly changed from 2017. No evidence of osteomyelitis. Status: Imported from PACS Assessment & Plan - Diagnosis (1) Abscess of right thigh Is this a current diagnosis for this admission?: Yes Plan: Nursing to begin daily dressing changes and advance the iodoform packing 3 inches with each dressing change. I think it is imperative that the patient be kept on antibiotics. Initially in the hospital with IV antibiotics and then subsequently following discharge on suppressive antibiotics indefinitely. - Time Time Spent with patient: 15-24 minutes Anticipated discharge: SNF Within: Other
[2018-03-01 06:30] LABS: HEMOGLOBIN 7.4 g/dL (13.5-17.0)
[2018-03-01 06:49] LABS: ANION GAP 10 (5-19); BLOOD UREA NITROGEN 25 mg/dL (7-20); CALCIUM 9.3 mg/dL (8.4-10.2); CARBON DIOXIDE 29 mmol/L (22-30); CHLORIDE 107 mmol/L (98-107); GLUCOSE 105 mg/dL (75-110); POTASSIUM 4.2 mmol/L (3.6-5.0); SODIUM 146.3 mmol/L (137-145)
[2018-03-01] MEDS: OXYCODONE-ACETAMINOPHEN 5-325 MG TABLET PO PRN ×3 (09:06→21:25)
[2018-03-01] MEDS: ENOXAPARIN SODIUM INJ 40 MG/0.4 ML DISP.SYRIN SUBCUT SCH (09:07)
[2018-03-01] MEDS: LEVETIRACETAM 500 MG TABLET PO SCH ×2 (09:07→21:25)
[2018-03-01] MEDS: FOLIC ACID 1 MG TABLET PO SCH (09:07)
[2018-03-01] MEDS: ASPIRIN 81 MG TABLET, ENT COATED PO SCH (09:07)
[2018-03-01] MEDS: DICLOFENAC SODIUM 50 MG TABLET.DR PO SCH ×2 (09:59→21:25)
[2018-03-01] MEDS: MISOPROSTOL 0.2 MG TABLET PO SCH ×2 (09:59→21:25)
[2018-03-01] MEDS: MEGESTROL ACETATE 20 MG TABLET PO SCH ×2 (09:59→21:27)
[2018-03-01] MEDS: HYDROMORPHONE HCL INJ/PF 2 MG/ML AMPULE IV PRN ×2 (12:49→23:54)
[2018-03-01] MEDS: TAMSULOSIN HCL 0.4 MG CAP.SR.24H PO SCH (18:15)
[2018-03-01] MEDS: LEVOFLOXACIN 750 MG/D5W RTU 750 MG/150 ML RTUPB IV SCH (18:15)
[2018-03-01] MEDS: HYDROXYUREA 500 MG CAPSULE PO SCH (21:25)
--- NOTE | 2018-03-01 21:33 | PDOC PROGRESS REPORT ---
Subjective Progress Note for:: 03/01/18 Subjective:: He has staph aureus septicemia with abscess of the right thigh status post incision and drainage Reason For Visit: SEVERE ANEMIA,LEUCOCYTOSIS Physical Exam Vital Signs: Temp Pulse Resp BP Pulse Ox 98.1 F 98 12 109/63 100 03/01/18 15:33 03/01/18 15:33 03/01/18 15:33 03/01/18 15:33 03/01/18 15:33 Intake & Output 02/28/18 03/01/18 03/02/18 06:59 06:59 06:59 Intake Total 3310 8658 1880 Output Total 400 3020 Balance 2910 5638 1880 Weight 60.9 kg 62.8 kg General appearance: PRESENT: no acute distress Eye exam: PRESENT: PERRLA Respiratory exam: PRESENT: clear to auscultation ishan Cardiovascular exam: PRESENT: +S1, +S2 GI/Abdominal exam: PRESENT: soft Neurological exam: PRESENT: alert Results Laboratory Results: 03/01/18 05:30 03/01/18 05:30 03/01/18 03/01/18 05:30 05:30 WBC 16.0 H RBC 2.53 L Hgb 7.4 L Hct 22.2 L MCV 88 MCH 29.1 MCHC 33.3 RDW 15.6 H Plt Count 391 Sodium 146.3 H Potassium 4.2 Chloride 107 Carbon Dioxide 29 Anion Gap 10 BUN 25 H Creatinine 0.59 Est GFR ( Amer) > 60 Est GFR (Non-Af Amer) > 60 Glucose 105 Calcium 9.3 02/27/18 08:43 Clean Catch Midstream Urine Culture - Final NO GROWTH 2 DAYS Impressions: Chest X-Ray 02/24/18 00:00 IMPRESSION: No acute cardiopulmonary findings. Lower Extremity MRI 02/26/18 13:12 IMPRESSION: Cellulitis and myositis without evidence of deep abscess. More superficial posterior fluid collection not significantly changed from 2017. No evidence of osteomyelitis. Assessment & Plan - Diagnosis (1) Sickle cell anemia Qualifiers: Sickle-cell associated disorders: with unspecified crisis Qualified Code(s) : D57.00 - Hb-SS disease with crisis, unspecified; D57.0 - Hb-SS disease with crisis Is this a current diagnosis for this admission?: Yes (2) Sacral decubitus ulcer, stage II Is this a current diagnosis for this admission?: Yes (3) Sickle cell anemia with pain Is this a current diagnosis for this admission?: Yes (4) Septicemia Is this a current diagnosis for this admission?: Yes (5) Abscess of right thigh Is this a current diagnosis for this admission?: Yes (6) Septicemia due to Staphylococcus aureus Is this a current diagnosis for this admission?: Yes
[2018-03-02] MEDS: OXYCODONE-ACETAMINOPHEN 5-325 MG TABLET PO PRN (02:04)
[2018-03-02] MEDS: OXYCODONE HCL IR 5 MG TABLET PO PRN ×3 (02:04→20:59)
[2018-03-02] MEDS: HYDROMORPHONE HCL INJ/PF 2 MG/ML AMPULE IV PRN ×2 (04:49→12:47)
--- NOTE | 2018-03-02 06:38 | PDOC PROGRESS REPORT ---
Subjective Progress Note for:: 03/02/18 Reason For Visit: SEVERE ANEMIA,LEUCOCYTOSIS 28-year-old black male with multiple musculoskeletal issues but most recently status post I&D of a right thigh abscess. Patient making progress with physical therapy, ambulating 80 feet yesterday. Complaining of right inguinal pain. Physical Exam Vital Signs: Temp Pulse Resp BP Pulse Ox 36.6 C 93 18 126/76 H 100 03/01/18 23:24 03/01/18 23:24 03/01/18 23:24 03/01/18 23:24 03/01/18 19:43 Intake & Output 02/28/18 03/01/18 03/02/18 06:59 06:59 06:59 Intake Total 3310 8658 3230 Output Total 400 3020 Balance 2910 5638 3230 Weight 60.9 kg 62.8 kg 62.1 kg General appearance: PRESENT: mild distress Extremities exam: PRESENT: other - Right thigh dressing with scant serosanguineous drainage. Packing in place. Leg lengths equal. Results Laboratory Results: 03/01/18 05:30 03/01/18 05:30 03/01/18 05:30 Sodium 146.3 H Potassium 4.2 Chloride 107 Carbon Dioxide 29 Anion Gap 10 BUN 25 H Creatinine 0.59 Est GFR ( Amer) > 60 Est GFR (Non-Af Amer) > 60 Glucose 105 Calcium 9.3 02/27/18 08:43 Clean Catch Midstream Urine Culture - Final NO GROWTH 2 DAYS Impressions: Chest X-Ray 02/24/18 00:00 IMPRESSION: No acute cardiopulmonary findings. Lower Extremity MRI 02/26/18 13:12 IMPRESSION: Cellulitis and myositis without evidence of deep abscess. More superficial posterior fluid collection not significantly changed from 2017. No evidence of osteomyelitis. Status: Imported from PACS Assessment & Plan - Diagnosis (1) Abscess of right thigh Is this a current diagnosis for this admission?: Yes Plan: Cultures from the right thigh growing gram-positive cocci in clusters. I suspect this will bar turner to be the same pansensitive staph that was in his blood. Is also the same pansensitive staph became from his sacral decubitus in the past and his left hip arthroplasty. He is currently receiving Levaquin IV. Plan would be to continue the IV medication while is in the hospital and transition to an oral medication when he is discharged. Physical therapy to continue to work with the patient on ambulation. Pain medication has been increased. - Time Time Spent with patient: 15-24 minutes Anticipated discharge: Other Within: Other
[2018-03-02] MEDS: DICLOFENAC SODIUM 50 MG TABLET.DR PO SCH ×2 (10:21→20:58)
[2018-03-02] MEDS: MISOPROSTOL 0.2 MG TABLET PO SCH ×2 (10:21→20:59)
[2018-03-02] MEDS: ASPIRIN 81 MG TABLET, ENT COATED PO SCH (10:22)
[2018-03-02] MEDS: MEGESTROL ACETATE 20 MG TABLET PO SCH ×2 (10:22→20:59)
[2018-03-02] MEDS: OXYCODONE HCL SR 10 MG TABLET PO SCH ×3 (10:23→20:58)
[2018-03-02] MEDS: FOLIC ACID 1 MG TABLET PO SCH (10:23)
[2018-03-02] MEDS: LEVETIRACETAM 500 MG TABLET PO SCH ×2 (10:23→20:58)
[2018-03-02] MEDS: ENOXAPARIN SODIUM INJ 40 MG/0.4 ML DISP.SYRIN SUBCUT SCH (10:24)
[2018-03-02] MEDS: TAMSULOSIN HCL 0.4 MG CAP.SR.24H PO SCH (18:08)
[2018-03-02] MEDS: LEVOFLOXACIN 750 MG/D5W RTU 750 MG/150 ML RTUPB IV SCH (18:16)
--- NOTE | 2018-03-02 20:10 | PDOC PROGRESS REPORT ---
Subjective Progress Note for:: 03/02/18 Subjective:: He is not eating much he was advised he needs to eat he has MSSA septicemia Reason For Visit: SEVERE ANEMIA,LEUCOCYTOSIS Physical Exam Vital Signs: Temp Pulse Resp BP Pulse Ox 99.1 F 111 H 15 104/73 100 03/02/18 16:28 03/02/18 16:28 03/02/18 16:28 03/02/18 16:28 03/02/18 16:28 Intake & Output 03/01/18 03/02/18 03/03/18 06:59 06:59 06:59 Intake Total 8658 3230 710 Output Total 3020 Balance 5638 3230 710 Weight 62.8 kg 62.1 kg General appearance: PRESENT: no acute distress Eye exam: PRESENT: PERRLA Respiratory exam: PRESENT: clear to auscultation ishan Cardiovascular exam: PRESENT: +S1, +S2 Neurological exam: PRESENT: alert Results Laboratory Results: 03/01/18 05:30 03/01/18 05:30 02/28/18 10:17 Thigh - Right Gram Stain - Final 02/28/18 10:17 Thigh - Right Wound Culture - Final Staphylococcus Aureus No Anaerobic Organisms 02/28/18 10:17 Thigh - Right Gram Stain - Final 02/28/18 10:17 Thigh - Right Wound Culture - Final Staphylococcus Aureus No Anaerobic Organisms Impressions: Chest X-Ray 02/24/18 00:00 IMPRESSION: No acute cardiopulmonary findings. Lower Extremity MRI 02/26/18 13:12 IMPRESSION: Cellulitis and myositis without evidence of deep abscess. More superficial posterior fluid collection not significantly changed from 2017. No evidence of osteomyelitis. Assessment & Plan - Diagnosis (1) Sickle cell anemia Qualifiers: Sickle-cell associated disorders: with unspecified crisis Qualified Code(s) : D57.00 - Hb-SS disease with crisis, unspecified; D57.0 - Hb-SS disease with crisis Is this a current diagnosis for this admission?: Yes (2) Sacral decubitus ulcer, stage II Is this a current diagnosis for this admission?: Yes (3) Sickle cell anemia with pain Is this a current diagnosis for this admission?: Yes (4) Septicemia Is this a current diagnosis for this admission?: Yes (5) Abscess of right thigh Is this a current diagnosis for this admission?: Yes (6) Septicemia due to Staphylococcus aureus Is this a current diagnosis for this admission?: Yes
[2018-03-02] MEDS: HYDROXYUREA 500 MG CAPSULE PO SCH (20:59)
[2018-03-03] MEDS: ENOXAPARIN SODIUM INJ 40 MG/0.4 ML DISP.SYRIN SUBCUT SCH (10:56)
[2018-03-03] MEDS: LEVETIRACETAM 500 MG TABLET PO SCH ×2 (10:56→20:37)
[2018-03-03] MEDS: OXYCODONE HCL SR 10 MG TABLET PO SCH ×2 (10:57→20:38)
[2018-03-03] MEDS: DICLOFENAC SODIUM 50 MG TABLET.DR PO SCH ×2 (10:57→20:35)
[2018-03-03] MEDS: ASPIRIN 81 MG TABLET, ENT COATED PO SCH (10:57)
[2018-03-03] MEDS: MEGESTROL ACETATE 20 MG TABLET PO SCH ×2 (10:57→20:35)
[2018-03-03] MEDS: FOLIC ACID 1 MG TABLET PO SCH (10:57)
[2018-03-03] MEDS: MISOPROSTOL 0.2 MG TABLET PO SCH ×2 (10:57→20:37)
[2018-03-03] MEDS: LEVOFLOXACIN 750 MG/D5W RTU 750 MG/150 ML RTUPB IV SCH (17:27)
[2018-03-03] MEDS: TAMSULOSIN HCL 0.4 MG CAP.SR.24H PO SCH (17:27)
--- NOTE | 2018-03-03 17:58 | PDOC PROGRESS REPORT ---
Subjective Progress Note for:: 03/03/18 Reason For Visit: SEVERE ANEMIA,LEUCOCYTOSIS Status post I&D of the right thigh. Physical Exam Vital Signs: Temp Pulse Resp BP Pulse Ox 37.1 C 113 H 12 100/61 100 03/03/18 11:43 03/03/18 11:43 03/03/18 11:43 03/03/18 11:43 03/03/18 11:43 Intake & Output 03/02/18 03/03/18 03/04/18 06:59 06:59 06:59 Intake Total 3230 710 402 Balance 3230 710 402 Weight 62.1 kg 60.6 kg Adult Front & Back Image: 1 - Incision and [place] are intact with mild bloody drainage. Patient is neurovascular intact distally. Results Laboratory Results: 03/01/18 05:30 03/01/18 05:30 Impressions: Chest X-Ray 02/24/18 00:00 IMPRESSION: No acute cardiopulmonary findings. Lower Extremity MRI 02/26/18 13:12 IMPRESSION: Cellulitis and myositis without evidence of deep abscess. More superficial posterior fluid collection not significantly changed from 2017. No evidence of osteomyelitis. Assessment & Plan - Plan Summary Plan Summary: Status post repeat I&D of the right thigh. Care. Care per primary team. I will be rounding for the patient this weekend and available for any questions.
[2018-03-03] MEDS: HYDROXYUREA 500 MG CAPSULE PO SCH (20:37)
--- NOTE | 2018-03-03 22:28 | PDOC PROGRESS REPORT ---
Subjective Progress Note for:: 03/03/18 Subjective:: Patient is seen by the bedside, no new complaints Reason For Visit: SEVERE ANEMIA,LEUCOCYTOSIS Physical Exam Vital Signs: Temp Pulse Resp BP Pulse Ox 98.7 F 113 H 12 127/82 H 100 03/03/18 11:43 03/03/18 11:43 03/03/18 11:43 03/03/18 20:00 03/03/18 11:43 Intake & Output 03/02/18 03/03/18 03/04/18 06:59 06:59 06:59 Intake Total 3230 710 402 Balance 3230 710 402 Weight 62.1 kg 60.6 kg General appearance: PRESENT: no acute distress Eye exam: PRESENT: PERRLA Respiratory exam: PRESENT: clear to auscultation ishan Cardiovascular exam: PRESENT: +S1, +S2 Neurological exam: PRESENT: alert Results Laboratory Results: 03/01/18 05:30 03/01/18 05:30 Impressions: Chest X-Ray 02/24/18 00:00 IMPRESSION: No acute cardiopulmonary findings. Lower Extremity MRI 02/26/18 13:12 IMPRESSION: Cellulitis and myositis without evidence of deep abscess. More superficial posterior fluid collection not significantly changed from 2017. No evidence of osteomyelitis. Assessment & Plan - Diagnosis (1) Sickle cell anemia Qualifiers: Sickle-cell associated disorders: with unspecified crisis Qualified Code(s) : D57.00 - Hb-SS disease with crisis, unspecified; D57.0 - Hb-SS disease with crisis Is this a current diagnosis for this admission?: Yes (2) Sacral decubitus ulcer, stage II Is this a current diagnosis for this admission?: Yes (3) Sickle cell anemia with pain Is this a current diagnosis for this admission?: Yes (4) Septicemia Is this a current diagnosis for this admission?: Yes (5) Abscess of right thigh Is this a current diagnosis for this admission?: Yes (6) Septicemia due to Staphylococcus aureus Is this a current diagnosis for this admission?: Yes
[2018-03-03] MEDS: OXYCODONE HCL IR 5 MG TABLET PO PRN (22:39)
[2018-03-03 22:45] LABS: ABSOLUTE BASOPHILS # (AUTO) 0.1 10^3/uL (0.0-0.2); ABSOLUTE EOSINOPHILS # (AUTO) 0.4 10^3/uL (0.0-0.6); ABSOLUTE LYMPHOCYTES (AUTO) 1.5 10^3/uL (0.5-4.7); ABSOLUTE MONOCYTES (AUTO) 1.1 10^3/uL (0.1-1.4); BASOPHILS % (AUTO) 0.6 % (0-2); EOSINOPHILS % (AUTO) 2.5 % (0-6); HEMATOCRIT 25.4 % (37.9-51.0); HEMOGLOBIN 8.4 g/dL (13.5-17.0); LYMPHOCYTES % (AUTO) 10.1 % (13-45); MEAN CORPUSCULAR HEMOGLOBIN 28.6 pg (27.0-33.4); MEAN CORPUSCULAR HGB CONC 33.1 g/dL (32.0-36.0); MEAN CORPUSCULAR VOLUME 87 fl (80-97); MONOCYTES % (AUTO) 7.5 % (3-13); PLATELET COUNT 641 10^3/uL (150-450); RED BLOOD COUNT 2.94 10^6/uL (4.35-5.55); RED CELL DISTRIBUTION WIDTH 15.6 % (11.5-14.0); SEGMENTED NEUTROPHILS % (AUTO) 79.3 % (42-78); TOTAL CELLS COUNTED % (AUTO) 100 %; WHITE BLOOD COUNT 15.2 10^3/uL (4.0-10.5)
[2018-03-03 23:02] LABS: ALANINE AMINOTRANSFERASE 35 U/L (21-72); ALBUMIN 3.4 g/dL (3.5-5.0); ALKALINE PHOSPHATASE 163 U/L (38-126); ANION GAP 11 (5-19); ASPARTATE AMINO TRANSFERASE 28 U/L (17-59); BILIRUBIN,DIRECT 0.3 mg/dL (0.0-0.4); BILIRUBIN,TOTAL 0.3 mg/dL (0.2-1.3); BLOOD UREA NITROGEN 25 mg/dL (7-20); CALCIUM 9.7 mg/dL (8.4-10.2); CARBON DIOXIDE 28 mmol/L (22-30); CHLORIDE 104 mmol/L (98-107); GLUCOSE 119 mg/dL (75-110); POTASSIUM 4.7 mmol/L (3.6-5.0); SODIUM 143.3 mmol/L (137-145); TOTAL PROTEIN 8.4 g/dL (6.3-8.2)
[2018-03-04 05:14] LABS: ABSOLUTE BASOPHILS # (AUTO) 0.1 10^3/uL (0.0-0.2); ABSOLUTE EOSINOPHILS # (AUTO) 0.2 10^3/uL (0.0-0.6); ABSOLUTE NEUT (AUTO) 10.3 10^3/uL (1.7-8.2); BASOPHILS % (AUTO) 0.5 % (0-2); EOSINOPHILS % (AUTO) 1.3 % (0-6); HEMATOCRIT 25.4 % (37.9-51.0); HEMOGLOBIN 8.5 g/dL (13.5-17.0); MEAN CORPUSCULAR HEMOGLOBIN 28.9 pg (27.0-33.4); MEAN CORPUSCULAR HGB CONC 33.5 g/dL (32.0-36.0); MEAN CORPUSCULAR VOLUME 86 fl (80-97); PLATELET COUNT 540 10^3/uL (150-450); RED BLOOD COUNT 2.94 10^6/uL (4.35-5.55); RED CELL DISTRIBUTION WIDTH 15.8 % (11.5-14.0); SEGMENTED NEUTROPHILS % (AUTO) 76.2 % (42-78); TOTAL CELLS COUNTED % (AUTO) 100 %; WHITE BLOOD COUNT 13.5 10^3/uL (4.0-10.5)
[2018-03-04 05:23] LABS: ALANINE AMINOTRANSFERASE 35 U/L (21-72); ALBUMIN 3.4 g/dL (3.5-5.0); ALKALINE PHOSPHATASE 149 U/L (38-126); ANION GAP 13 (5-19); ASPARTATE AMINO TRANSFERASE 31 U/L (17-59); BILIRUBIN,DIRECT 0.4 mg/dL (0.0-0.4); BILIRUBIN,TOTAL 0.4 mg/dL (0.2-1.3); BLOOD UREA NITROGEN 26 mg/dL (7-20); CALCIUM 9.8 mg/dL (8.4-10.2); CARBON DIOXIDE 27 mmol/L (22-30); CHLORIDE 105 mmol/L (98-107); GLUCOSE 112 mg/dL (75-110); POTASSIUM 5.6 mmol/L (3.6-5.0); SODIUM 145.2 mmol/L (137-145); TOTAL PROTEIN 8.6 g/dL (6.3-8.2)
[2018-03-04] MEDS: OXYCODONE HCL IR 5 MG TABLET PO PRN ×2 (06:30→20:21)
[2018-03-04] MEDS: MISOPROSTOL 0.2 MG TABLET PO SCH ×2 (09:11→22:25)
[2018-03-04] MEDS: ENOXAPARIN SODIUM INJ 40 MG/0.4 ML DISP.SYRIN SUBCUT SCH (09:11)
[2018-03-04] MEDS: ASPIRIN 81 MG TABLET, ENT COATED PO SCH (09:11)
[2018-03-04] MEDS: LEVETIRACETAM 500 MG TABLET PO SCH ×2 (09:11→22:25)
[2018-03-04] MEDS: FOLIC ACID 1 MG TABLET PO SCH (09:11)
[2018-03-04] MEDS: OXYCODONE HCL SR 10 MG TABLET PO SCH ×2 (09:11→22:25)
[2018-03-04] MEDS: DICLOFENAC SODIUM 50 MG TABLET.DR PO SCH ×2 (09:12→22:24)
[2018-03-04] MEDS: MEGESTROL ACETATE 20 MG TABLET PO SCH ×2 (09:12→22:24)
--- NOTE | 2018-03-04 14:05 | PDOC PROGRESS REPORT ---
Subjective Progress Note for:: 03/04/18 Subjective:: Patient with no issues overnight. Was able to participate with therapy and go down the hallway and back. Reason For Visit: SEVERE ANEMIA,LEUCOCYTOSIS Physical Exam Vital Signs: Temp Pulse Resp BP Pulse Ox 36.7 C 121 H 14 109/67 100 03/04/18 04:14 03/04/18 04:14 03/04/18 04:14 03/04/18 04:14 03/04/18 08:03 Intake & Output 03/03/18 03/04/18 03/05/18 06:59 06:59 06:59 Intake Total 710 515 Balance 710 515 Weight 60.6 kg 60.2 kg General appearance: PRESENT: no acute distress Results Laboratory Results: 03/04/18 04:08 03/04/18 04:08 03/03/18 03/03/18 03/04/18 22:36 22:36 04:08 WBC 15.2 H 13.5 H RBC 2.94 L 2.94 L Hgb 8.4 L 8.5 L Hct 25.4 L 25.4 L MCV 87 86 MCH 28.6 28.9 MCHC 33.1 33.5 RDW 15.6 H 15.8 H Plt Count 641 H 540 H Seg Neutrophils % 79.3 H 76.2 Lymphocytes % 10.1 L 15.0 Monocytes % 7.5 7.0 Eosinophils % 2.5 1.3 Basophils % 0.6 0.5 Absolute Neutrophils 12.0 H 10.3 H Absolute Lymphocytes 1.5 2.0 Absolute Monocytes 1.1 1.0 Absolute Eosinophils 0.4 0.2 Absolute Basophils 0.1 0.1 Sodium 143.3 Potassium 4.7 Chloride 104 Carbon Dioxide 28 Anion Gap 11 BUN 25 H Creatinine 0.73 Est GFR ( Amer) > 60 Est GFR (Non-Af Amer) > 60 Glucose 119 H Calcium 9.7 Total Bilirubin 0.3 AST 28 ALT 35 Alkaline Phosphatase 163 H Total Protein 8.4 H Albumin 3.4 L 03/04/18 04:08 WBC RBC Hgb Hct MCV MCH MCHC RDW Plt Count Seg Neutrophils % Lymphocytes % Monocytes % Eosinophils % Basophils % Absolute Neutrophils Absolute Lymphocytes Absolute Monocytes Absolute Eosinophils Absolute Basophils Sodium 145.2 H Potassium 5.6 H Chloride 105 Carbon Dioxide 27 Anion Gap 13 BUN 26 H Creatinine 0.67 Est GFR ( Amer) > 60 Est GFR (Non-Af Amer) > 60 Glucose 112 H Calcium 9.8 Total Bilirubin 0.4 AST 31 ALT 35 Alkaline Phosphatase 149 H Total Protein 8.6 H Albumin 3.4 L Impressions: Chest X-Ray 02/24/18 00:00 IMPRESSION: No acute cardiopulmonary findings. Lower Extremity MRI 02/26/18 13:12 IMPRESSION: Cellulitis and myositis without evidence of deep abscess. More superficial posterior fluid collection not significantly changed from 2017. No evidence of osteomyelitis. Assessment & Plan - Plan Summary Plan Summary: 28-year-old status post repeat I&D. Continue dressing changes as needed. Continue physical therapy. Care per primary team.
[2018-03-04] MEDS: CEFAZOLIN SODIUM 2 GM in DEXTROSE 5%-WATER 100 ML IV SCH (17:23)
[2018-03-04] MEDS: TAMSULOSIN HCL 0.4 MG CAP.SR.24H PO SCH (17:23)
--- NOTE | 2018-03-04 21:40 | PDOC PROGRESS REPORT ---
Subjective Progress Note for:: 03/04/18 Subjective:: He is not eating much he was advised he needs to eat he has MSSA septicemia Reason For Visit: SEVERE ANEMIA,LEUCOCYTOSIS Physical Exam Vital Signs: Temp Pulse Resp BP Pulse Ox 99.0 F 117 H 12 112/68 100 03/04/18 14:39 03/04/18 14:39 03/04/18 11:32 03/04/18 14:39 03/04/18 14:39 Intake & Output 03/03/18 03/04/18 03/05/18 06:59 06:59 06:59 Intake Total 710 515 507 Balance 710 515 507 Weight 60.6 kg 60.2 kg General appearance: PRESENT: no acute distress Eye exam: PRESENT: PERRLA Respiratory exam: PRESENT: clear to auscultation ishan Cardiovascular exam: PRESENT: +S2 GI/Abdominal exam: PRESENT: soft Results Laboratory Results: 03/04/18 04:08 03/04/18 04:08 03/03/18 03/03/18 03/04/18 22:36 22:36 04:08 WBC 15.2 H 13.5 H RBC 2.94 L 2.94 L Hgb 8.4 L 8.5 L Hct 25.4 L 25.4 L MCV 87 86 MCH 28.6 28.9 MCHC 33.1 33.5 RDW 15.6 H 15.8 H Plt Count 641 H 540 H Seg Neutrophils % 79.3 H 76.2 Lymphocytes % 10.1 L 15.0 Monocytes % 7.5 7.0 Eosinophils % 2.5 1.3 Basophils % 0.6 0.5 Absolute Neutrophils 12.0 H 10.3 H Absolute Lymphocytes 1.5 2.0 Absolute Monocytes 1.1 1.0 Absolute Eosinophils 0.4 0.2 Absolute Basophils 0.1 0.1 Sodium 143.3 Potassium 4.7 Chloride 104 Carbon Dioxide 28 Anion Gap 11 BUN 25 H Creatinine 0.73 Est GFR ( Amer) > 60 Est GFR (Non-Af Amer) > 60 Glucose 119 H Calcium 9.7 Total Bilirubin 0.3 AST 28 ALT 35 Alkaline Phosphatase 163 H Total Protein 8.4 H Albumin 3.4 L 03/04/18 04:08 WBC RBC Hgb Hct MCV MCH MCHC RDW Plt Count Seg Neutrophils % Lymphocytes % Monocytes % Eosinophils % Basophils % Absolute Neutrophils Absolute Lymphocytes Absolute Monocytes Absolute Eosinophils Absolute Basophils Sodium 145.2 H Potassium 5.6 H Chloride 105 Carbon Dioxide 27 Anion Gap 13 BUN 26 H Creatinine 0.67 Est GFR ( Amer) > 60 Est GFR (Non-Af Amer) > 60 Glucose 112 H Calcium 9.8 Total Bilirubin 0.4 AST 31 ALT 35 Alkaline Phosphatase 149 H Total Protein 8.6 H Albumin 3.4 L Impressions: Chest X-Ray 02/24/18 00:00 IMPRESSION: No acute cardiopulmonary findings. Lower Extremity MRI 02/26/18 13:12 IMPRESSION: Cellulitis and myositis without evidence of deep abscess. More superficial posterior fluid collection not significantly changed from 2017. No evidence of osteomyelitis. Assessment & Plan - Diagnosis (1) Sickle cell anemia Qualifiers: Sickle-cell associated disorders: with unspecified crisis Qualified Code(s) : D57.00 - Hb-SS disease with crisis, unspecified; D57.0 - Hb-SS disease with crisis Is this a current diagnosis for this admission?: Yes (2) Sacral decubitus ulcer, stage II Is this a current diagnosis for this admission?: Yes (3) Sickle cell anemia with pain Is this a current diagnosis for this admission?: Yes (4) Septicemia Is this a current diagnosis for this admission?: Yes (5) Abscess of right thigh Is this a current diagnosis for this admission?: Yes (6) Septicemia due to Staphylococcus aureus Is this a current diagnosis for this admission?: Yes - Plan Summary Plan Summary: Continue treatment
[2018-03-04] MEDS: HYDROXYUREA 500 MG CAPSULE PO SCH (22:24)
[2018-03-05] MEDS: CEFAZOLIN SODIUM 2 GM in DEXTROSE 5%-WATER 100 ML IV SCH ×3 (02:27→17:00)
[2018-03-05] MEDS: MISOPROSTOL 0.2 MG TABLET PO SCH ×2 (10:05→21:20)
[2018-03-05] MEDS: MEGESTROL ACETATE 20 MG TABLET PO SCH ×2 (10:06→21:19)
[2018-03-05] MEDS: DICLOFENAC SODIUM 50 MG TABLET.DR PO SCH ×2 (10:06→21:19)
[2018-03-05] MEDS: OXYCODONE HCL SR 10 MG TABLET PO SCH ×2 (10:06→21:19)
[2018-03-05] MEDS: LEVETIRACETAM 500 MG TABLET PO SCH ×2 (10:06→21:20)
[2018-03-05] MEDS: ENOXAPARIN SODIUM INJ 40 MG/0.4 ML DISP.SYRIN SUBCUT SCH (10:06)
[2018-03-05] MEDS: ASPIRIN 81 MG TABLET, ENT COATED PO SCH (10:06)
[2018-03-05] MEDS: FOLIC ACID 1 MG TABLET PO SCH (10:06)
--- NOTE | 2018-03-05 13:36 | PDOC PROGRESS REPORT ---
Subjective Progress Note for:: 03/05/18 Subjective:: Patient denied any fever, chills, chest pain, palpitation, nausea or vomiting. No abdominal pain. His oral intake remain poor. Participated in physical therapy. Hip wound site is fairly clean. Reason For Visit: SEVERE ANEMIA,LEUCOCYTOSIS Physical Exam Vital Signs: Temp Pulse Resp BP Pulse Ox 99.0 F 114 H 18 107/61 100 03/05/18 07:43 03/05/18 07:43 03/05/18 07:43 03/05/18 07:43 03/05/18 07:43 Intake & Output 03/04/18 03/05/18 03/06/18 06:59 06:59 06:59 Intake Total 515 847 Balance 515 847 Weight 60.2 kg 58 kg General appearance: PRESENT: thin - and chronically ill looking Head exam: PRESENT: atraumatic, normocephalic Mouth exam: PRESENT: moist - fairly Respiratory exam: PRESENT: clear to auscultation ishan, decreased breath sounds - at lung bases Cardiovascular exam: PRESENT: RRR, +S1, +S2. ABSENT: diastolic murmur, rubs, systolic murmur Vascular exam: PRESENT: normal capillary refill. ABSENT: pallor GI/Abdominal exam: PRESENT: normal bowel sounds, soft Neurological exam: PRESENT: alert, awake, oriented to person, oriented to place , oriented to time, oriented to situation, CN II-XII grossly intact. ABSENT: motor sensory deficit Psychiatric exam: PRESENT: appropriate affect, normal mood. ABSENT: homicidal ideation, suicidal ideation Skin exam: PRESENT: dry, warm, other - right thigh I&D sites, left hip and sacral stage 2 fairly satisfactory. Results Laboratory Results: 03/04/18 04:08 03/04/18 04:08 Impressions: Chest X-Ray 02/24/18 00:00 IMPRESSION: No acute cardiopulmonary findings. Lower Extremity MRI 02/26/18 13:12 IMPRESSION: Cellulitis and myositis without evidence of deep abscess. More superficial posterior fluid collection not significantly changed from 2017. No evidence of osteomyelitis. Assessment & Plan - Diagnosis (1) Abscess of right thigh Is this a current diagnosis for this admission?: Yes Plan: Continue IV Cefazolin coverage. Continue local wound dressing. (2) Septicemia due to Staphylococcus aureus Is this a current diagnosis for this admission?: Yes Plan: Continue IV Cefazolin coverage. Obtain CBC with Diff in am. (3) Sacral decubitus ulcer, stage II Is this a current diagnosis for this admission?: Yes Plan: Continue current local wound dressing and antibiotic coverage. (4) Sickle cell anemia with pain Is this a current diagnosis for this admission?: Yes Plan: Maintain on current pain management. (5) Adult failure to thrive syndrome Is this a current diagnosis for this admission?: Yes Plan: Most like secondary to poor p.o intake and associated chronic disease, SCD with pain and infection. Encourage increase p.o intake and oral nutritional supplementation. - Time Time Spent with patient: 25-34 minutes Medications reviewed and adjusted accordingly: Yes Anticipated discharge: SNF Within: Other - Inpatient Certification Based on my medical assessment, after consideration of the patient's comorbidities, presenting symptoms, or acuity I expect that the services needed warrant INPATIENT care.: Yes I certify that my determination is in accordance with my understanding of Medicare's requirements for reasonable and necessary INPATIENT services [42 CFR 412.3e].: Yes Medical Necessity: Need Close Monitoring Due to Risk of Patient Decompensation, Need For IV Fluids, Need for IV Antibiotics, Risk of Complication if Not Cared For in Hospital Post Hospital Care: D/C or Transfer Summary - Plan Summary Plan Summary: See covering attending physician orders.
[2018-03-05] MEDS: OXYCODONE HCL IR 5 MG TABLET PO PRN (17:00)
[2018-03-05] MEDS: TAMSULOSIN HCL 0.4 MG CAP.SR.24H PO SCH (17:01)
[2018-03-05] MEDS: HYDROXYUREA 500 MG CAPSULE PO SCH (21:19)
[2018-03-06] MEDS: CEFAZOLIN SODIUM 2 GM in DEXTROSE 5%-WATER 100 ML IV SCH ×3 (01:11→17:54)
[2018-03-06 04:43] LABS: ABSOLUTE BASOPHILS # (AUTO) 0.1 10^3/uL (0.0-0.2); ABSOLUTE EOSINOPHILS # (AUTO) 0.4 10^3/uL (0.0-0.6); ABSOLUTE LYMPHOCYTES (AUTO) 2.9 10^3/uL (0.5-4.7); ABSOLUTE MONOCYTES (AUTO) 1.3 10^3/uL (0.1-1.4); ABSOLUTE NEUT (AUTO) 8.4 10^3/uL (1.7-8.2); BASOPHILS % (AUTO) 0.6 % (0-2); EOSINOPHILS % (AUTO) 3.1 % (0-6); HEMATOCRIT 25.2 % (37.9-51.0); HEMOGLOBIN 8.5 g/dL (13.5-17.0); LYMPHOCYTES % (AUTO) 22.1 % (13-45); MEAN CORPUSCULAR HEMOGLOBIN 28.8 pg (27.0-33.4); MEAN CORPUSCULAR HGB CONC 33.5 g/dL (32.0-36.0); MEAN CORPUSCULAR VOLUME 86 fl (80-97); MONOCYTES % (AUTO) 9.8 % (3-13); PLATELET COUNT 721 10^3/uL (150-450); RED BLOOD COUNT 2.94 10^6/uL (4.35-5.55); RED CELL DISTRIBUTION WIDTH 15.8 % (11.5-14.0); SEGMENTED NEUTROPHILS % (AUTO) 64.4 % (42-78); TOTAL CELLS COUNTED % (AUTO) 100 %; WHITE BLOOD COUNT 13.1 10^3/uL (4.0-10.5)
[2018-03-06 05:09] LABS: ALANINE AMINOTRANSFERASE 29 U/L (21-72); ALBUMIN 3.4 g/dL (3.5-5.0); ALKALINE PHOSPHATASE 135 U/L (38-126); ANION GAP 13 (5-19); ASPARTATE AMINO TRANSFERASE 27 U/L (17-59); BILIRUBIN,DIRECT 0.3 mg/dL (0.0-0.4); BILIRUBIN,TOTAL 0.3 mg/dL (0.2-1.3); BLOOD UREA NITROGEN 33 mg/dL (7-20); CALCIUM 10.1 mg/dL (8.4-10.2); CARBON DIOXIDE 29 mmol/L (22-30); CHLORIDE 105 mmol/L (98-107); GLUCOSE 114 mg/dL (75-110); POTASSIUM 5.3 mmol/L (3.6-5.0); SODIUM 146.6 mmol/L (137-145); TOTAL PROTEIN 8.5 g/dL (6.3-8.2)
[2018-03-06] MEDS: ASPIRIN 81 MG TABLET, ENT COATED PO SCH (09:21)
[2018-03-06] MEDS: FOLIC ACID 1 MG TABLET PO SCH (09:21)
[2018-03-06] MEDS: ENOXAPARIN SODIUM INJ 40 MG/0.4 ML DISP.SYRIN SUBCUT SCH (09:21)
[2018-03-06] MEDS: LEVETIRACETAM 500 MG TABLET PO SCH ×2 (09:21→21:09)
[2018-03-06] MEDS: DICLOFENAC SODIUM 50 MG TABLET.DR PO SCH ×2 (09:21→21:09)
[2018-03-06] MEDS: OXYCODONE HCL SR 10 MG TABLET PO SCH ×2 (09:22→21:09)
[2018-03-06] MEDS: MEGESTROL ACETATE 20 MG TABLET PO SCH ×2 (09:22→21:09)
[2018-03-06] MEDS: MISOPROSTOL 0.2 MG TABLET PO SCH ×2 (09:22→21:09)
[2018-03-06] MEDS: MULTIVIT-STRESS FORMULA/ZINC TABLET PO SCH (09:22)
--- NOTE | 2018-03-06 10:16 | PDOC PROGRESS REPORT ---
Subjective Progress Note for:: 03/06/18 Subjective:: Patient states pain is under control. Continues to participate with therapy. Reason For Visit: SEVERE ANEMIA,LEUCOCYTOSIS Physical Exam Vital Signs: Temp Pulse Resp BP Pulse Ox 36.8 C 104 H 18 115/71 100 03/06/18 07:34 03/06/18 07:34 03/06/18 07:34 03/06/18 07:34 03/06/18 07:34 Intake & Output 03/05/18 03/06/18 03/07/18 06:59 06:59 06:59 Intake Total 847 1548 Balance 847 1548 Weight 58 kg 59.8 kg General appearance: PRESENT: no acute distress, thin Adult Front & Back Image: 1 - Thigh is foundry tender palpation. No erythema or swelling. Incision is healing with no evidence of repeat infection with mild drainage on the dressing. He still neurovascular intact distally. Limb lengths are grossly equal. Results Laboratory Results: 03/06/18 04:00 03/06/18 04:00 03/06/18 03/06/18 04:00 04:00 WBC 13.1 H RBC 2.94 L Hgb 8.5 L Hct 25.2 L MCV 86 MCH 28.8 MCHC 33.5 RDW 15.8 H Plt Count 721 H Seg Neutrophils % 64.4 Lymphocytes % 22.1 Monocytes % 9.8 Eosinophils % 3.1 Basophils % 0.6 Absolute Neutrophils 8.4 H Absolute Lymphocytes 2.9 Absolute Monocytes 1.3 Absolute Eosinophils 0.4 Absolute Basophils 0.1 Sodium 146.6 H Potassium 5.3 H Chloride 105 Carbon Dioxide 29 Anion Gap 13 BUN 33 H Creatinine 0.70 Est GFR ( Amer) > 60 Est GFR (Non-Af Amer) > 60 Glucose 114 H Calcium 10.1 Total Bilirubin 0.3 AST 27 ALT 29 Alkaline Phosphatase 135 H Total Protein 8.5 H Albumin 3.4 L Impressions: Chest X-Ray 02/24/18 00:00 IMPRESSION: No acute cardiopulmonary findings. Lower Extremity MRI 02/26/18 13:12 IMPRESSION: Cellulitis and myositis without evidence of deep abscess. More superficial posterior fluid collection not significantly changed from 2017. No evidence of osteomyelitis. Status: Image reviewed by me Assessment & Plan - Plan Summary Plan Summary: 28-year-old gentleman status post I&D of the right thigh abscess. White count is trending down but still at 13. Will order blood cultures to make sure he no longer is bacteremic Continue weight-bear as tolerated and participate with therapy.
[2018-03-06] MEDS: OXYCODONE HCL IR 5 MG TABLET PO PRN ×2 (12:12→17:54)
--- NOTE | 2018-03-06 12:51 | PDOC PROGRESS REPORT ---
Subjective Progress Note for:: 03/06/18 Subjective:: Patient denied any fever or chills although there is low grade record temperature. No chest pain, palpitation, or difficulty with breathing. No nausea , vomiting, or abdominal pain. Reason For Visit: SEVERE ANEMIA,LEUCOCYTOSIS Physical Exam Vital Signs: Temp Pulse Resp BP Pulse Ox 99.1 F 122 H 18 110/82 100 03/06/18 12:08 03/06/18 12:08 03/06/18 12:08 03/06/18 12:08 03/06/18 12:08 Intake & Output 03/05/18 03/06/18 03/07/18 06:59 06:59 06:59 Intake Total 847 1548 Balance 847 1548 Weight 58 kg 59.8 kg Physical Exam: General appearance: PRESENT: thin - and chronically ill looking Head exam: PRESENT: atraumatic, normocephalic Mouth exam: PRESENT: moist - fairly Respiratory exam: PRESENT: clear to auscultation ishan, decreased breath sounds - at lung bases Cardiovascular exam: PRESENT: RRR, +S1, +S2. ABSENT: diastolic murmur, rubs, systolic murmur Vascular exam: PRESENT: normal capillary refill. ABSENT: pallor GI/Abdominal exam: PRESENT: normal bowel sounds, soft Neurological exam: PRESENT: alert, awake, oriented to person, oriented to place , oriented to time, oriented to situation, CN II-XII grossly intact. ABSENT: motor sensory deficit Psychiatric exam: PRESENT: appropriate affect, normal mood. ABSENT: homicidal ideation, suicidal ideation Skin exam: PRESENT: dry, warm, other - right thigh I&D sites, left hip and sacral stage 2 fairly satisfactory. Results Laboratory Results: 03/06/18 04:00 03/06/18 04:00 03/06/18 03/06/18 04:00 04:00 WBC 13.1 H RBC 2.94 L Hgb 8.5 L Hct 25.2 L MCV 86 MCH 28.8 MCHC 33.5 RDW 15.8 H Plt Count 721 H Seg Neutrophils % 64.4 Lymphocytes % 22.1 Monocytes % 9.8 Eosinophils % 3.1 Basophils % 0.6 Absolute Neutrophils 8.4 H Absolute Lymphocytes 2.9 Absolute Monocytes 1.3 Absolute Eosinophils 0.4 Absolute Basophils 0.1 Sodium 146.6 H Potassium 5.3 H Chloride 105 Carbon Dioxide 29 Anion Gap 13 BUN 33 H Creatinine 0.70 Est GFR ( Amer) > 60 Est GFR (Non-Af Amer) > 60 Glucose 114 H Calcium 10.1 Total Bilirubin 0.3 AST 27 ALT 29 Alkaline Phosphatase 135 H Total Protein 8.5 H Albumin 3.4 L Impressions: Chest X-Ray 02/24/18 00:00 IMPRESSION: No acute cardiopulmonary findings. Lower Extremity MRI 02/26/18 13:12 IMPRESSION: Cellulitis and myositis without evidence of deep abscess. More superficial posterior fluid collection not significantly changed from 2017. No evidence of osteomyelitis. Assessment & Plan - Diagnosis (1) Abscess of right thigh Is this a current diagnosis for this admission?: Yes (2) Septicemia due to Staphylococcus aureus Is this a current diagnosis for this admission?: Yes (3) Sacral decubitus ulcer, stage II Is this a current diagnosis for this admission?: Yes (4) Sickle cell anemia with pain Is this a current diagnosis for this admission?: Yes (5) Adult failure to thrive syndrome Is this a current diagnosis for this admission?: Yes - Time Time Spent with patient: 25-34 minutes Medications reviewed and adjusted accordingly: Yes Anticipated discharge: SNF Within: Other - Inpatient Certification Based on my medical assessment, after consideration of the patient's comorbidities, presenting symptoms, or acuity I expect that the services needed warrant INPATIENT care.: Yes I certify that my determination is in accordance with my understanding of Medicare's requirements for reasonable and necessary INPATIENT services [42 CFR 412.3e].: Yes Medical Necessity: Need Close Monitoring Due to Risk of Patient Decompensation, Need For IV Fluids, Need for IV Antibiotics, Need for Surgery, Risk of Complication if Not Cared For in Hospital Post Hospital Care: D/C or Transfer Summary - Plan Summary Plan Summary: See covering attending physician orders.
[2018-03-06] MEDS: TAMSULOSIN HCL 0.4 MG CAP.SR.24H PO SCH (17:54)
[2018-03-06] MEDS: HYDROXYUREA 500 MG CAPSULE PO SCH (21:09)
[2018-03-07] MEDS: CEFAZOLIN SODIUM 2 GM in DEXTROSE 5%-WATER 100 ML IV SCH ×3 (02:01→18:21)
[2018-03-07] MEDS: OXYCODONE HCL IR 5 MG TABLET PO PRN ×2 (02:52→18:21)
[2018-03-07] MEDS: OXYCODONE HCL SR 10 MG TABLET PO SCH ×2 (08:54→22:01)
[2018-03-07] MEDS: ENOXAPARIN SODIUM INJ 40 MG/0.4 ML DISP.SYRIN SUBCUT SCH (09:37)
[2018-03-07] MEDS: ASPIRIN 81 MG TABLET, ENT COATED PO SCH (09:37)
[2018-03-07] MEDS: DICLOFENAC SODIUM 50 MG TABLET.DR PO SCH ×2 (09:37→22:00)
[2018-03-07] MEDS: LEVETIRACETAM 500 MG TABLET PO SCH ×2 (09:37→22:00)
[2018-03-07] MEDS: MULTIVIT-STRESS FORMULA/ZINC TABLET PO SCH (09:38)
[2018-03-07] MEDS: MEGESTROL ACETATE 20 MG TABLET PO SCH ×2 (09:38→22:00)
[2018-03-07] MEDS: MISOPROSTOL 0.2 MG TABLET PO SCH ×2 (09:38→22:00)
[2018-03-07] MEDS: FOLIC ACID 1 MG TABLET PO SCH (09:38)
[2018-03-07] MEDS ORDERED: OXYCODONE HCL IR 5 MG TABLET ONE (12:37)
[2018-03-07] MEDS: TAMSULOSIN HCL 0.4 MG CAP.SR.24H PO SCH (18:20)
[2018-03-07] MEDS: HYDROXYUREA 500 MG CAPSULE PO SCH (22:00)
--- NOTE | 2018-03-07 22:03 | PDOC PROGRESS REPORT ---
Subjective Progress Note for:: 03/07/18 Subjective:: Patient seen by the bedside he has staph aureus septicemia associated with abscess of the right thigh status post I&D on IV antibiotic Reason For Visit: SEVERE ANEMIA,LEUCOCYTOSIS Physical Exam Vital Signs: Temp Pulse Resp BP Pulse Ox 97.7 F 128 H 18 120/91 H 100 03/07/18 19:44 03/07/18 19:44 03/07/18 19:44 03/07/18 19:44 03/07/18 19:44 Intake & Output 03/06/18 03/07/18 03/08/18 06:59 06:59 06:59 Intake Total 1548 1527 210 Balance 1548 1527 210 Weight 59.8 kg 60.1 kg General appearance: PRESENT: no acute distress Eye exam: PRESENT: PERRLA Respiratory exam: PRESENT: clear to auscultation ishan Cardiovascular exam: PRESENT: +S1, +S2 GI/Abdominal exam: PRESENT: soft Results Laboratory Results: 03/06/18 04:00 03/06/18 04:00 Impressions: Chest X-Ray 02/24/18 00:00 IMPRESSION: No acute cardiopulmonary findings. Lower Extremity MRI 02/26/18 13:12 IMPRESSION: Cellulitis and myositis without evidence of deep abscess. More superficial posterior fluid collection not significantly changed from 2017. No evidence of osteomyelitis. Assessment & Plan - Diagnosis (1) Sickle cell anemia Qualifiers: Sickle-cell associated disorders: with unspecified crisis Qualified Code(s) : D57.00 - Hb-SS disease with crisis, unspecified; D57.0 - Hb-SS disease with crisis Is this a current diagnosis for this admission?: Yes (2) Sacral decubitus ulcer, stage II Is this a current diagnosis for this admission?: Yes (3) Sickle cell anemia with pain Is this a current diagnosis for this admission?: Yes (4) Septicemia Is this a current diagnosis for this admission?: Yes (5) Abscess of right thigh Is this a current diagnosis for this admission?: Yes (6) Septicemia due to Staphylococcus aureus Is this a current diagnosis for this admission?: Yes - Plan Summary Plan Summary: Continue IV antibiotic
[2018-03-08] MEDS: CEFAZOLIN SODIUM 2 GM in DEXTROSE 5%-WATER 100 ML IV SCH ×3 (01:46→17:03)
--- NOTE | 2018-03-08 06:42 | PDOC PROGRESS REPORT ---
Subjective Progress Note for:: 03/08/18 Reason For Visit: SEVERE ANEMIA,LEUCOCYTOSIS 28-year-old black male with multiple ongoing musculoskeletal issues the most recent of which is irrigation drainage of a right vastus lateralis pansensitive staph aureus abscess Physical Exam Vital Signs: Temp Pulse Resp BP Pulse Ox 36.4 C 104 H 18 99/63 L 100 03/07/18 23:50 03/07/18 23:50 03/07/18 23:50 03/07/18 23:50 03/07/18 23:50 Intake & Output 03/06/18 03/07/18 03/08/18 06:59 06:59 06:59 Intake Total 1548 1527 646 Balance 1548 1527 646 Weight 59.8 kg 60.1 kg 59.3 kg General appearance: PRESENT: no acute distress Respiratory exam: PRESENT: unlabored Cardiovascular exam: PRESENT: tachycardia Pulses: PRESENT: +1 pedal pulses bilateral Vascular exam: PRESENT: normal capillary refill Extremities exam: PRESENT: other - Right thigh dressing now and OpSite. Underlying packing has been removed. There is minimal drainage. Neurological exam: PRESENT: alert, awake Skin exam: PRESENT: dry, intact, warm. ABSENT: cyanosis, rash Results Laboratory Results: 03/06/18 04:00 03/06/18 04:00 Impressions: Chest X-Ray 02/24/18 00:00 IMPRESSION: No acute cardiopulmonary findings. Lower Extremity MRI 02/26/18 13:12 IMPRESSION: Cellulitis and myositis without evidence of deep abscess. More superficial posterior fluid collection not significantly changed from 2017. No evidence of osteomyelitis. Status: Imported from PACS Assessment & Plan - Diagnosis (1) Abscess of right thigh Is this a current diagnosis for this admission?: Yes Plan: Resolving. Ongoing physical therapy with slow progress. Patient reports the pain is improving although not sure that this is reliable. - Time Time Spent with patient: 15-24 minutes Anticipated discharge: SNF Within: when bed available
[2018-03-08] MEDS: LEVETIRACETAM 500 MG TABLET PO SCH ×2 (10:15→21:56)
[2018-03-08] MEDS: ASPIRIN 81 MG TABLET, ENT COATED PO SCH (10:15)
[2018-03-08] MEDS: MULTIVIT-STRESS FORMULA/ZINC TABLET PO SCH (10:15)
[2018-03-08] MEDS: FOLIC ACID 1 MG TABLET PO SCH (10:15)
[2018-03-08] MEDS: OXYCODONE HCL IR 5 MG TABLET PO PRN ×2 (10:15→17:02)
[2018-03-08] MEDS: MEGESTROL ACETATE 20 MG TABLET PO SCH ×2 (10:16→21:54)
[2018-03-08] MEDS: DICLOFENAC SODIUM 50 MG TABLET.DR PO SCH ×2 (10:16→21:56)
[2018-03-08] MEDS: MISOPROSTOL 0.2 MG TABLET PO SCH ×2 (10:16→21:54)
[2018-03-08] MEDS: OXYCODONE HCL SR 10 MG TABLET PO SCH ×2 (10:16→21:55)
[2018-03-08] MEDS: ENOXAPARIN SODIUM INJ 40 MG/0.4 ML DISP.SYRIN SUBCUT SCH (10:16)
[2018-03-08] MEDS: TAMSULOSIN HCL 0.4 MG CAP.SR.24H PO SCH (17:03)
--- NOTE | 2018-03-08 21:28 | PDOC PROGRESS REPORT ---
Subjective Progress Note for:: 03/08/18 Subjective:: Patient seen by the bedside he has staph aureus septicemia associated with abscess of the right thigh status post I&D on IV antibiotic Reason For Visit: SEVERE ANEMIA,LEUCOCYTOSIS Physical Exam Vital Signs: Temp Pulse Resp BP Pulse Ox 98.2 F 123 H 16 103/67 100 03/08/18 20:00 03/08/18 20:00 03/08/18 20:00 03/08/18 20:00 03/08/18 20:00 Intake & Output 03/07/18 03/08/18 03/09/18 06:59 06:59 06:59 Intake Total 1527 646 855 Balance 1527 646 855 Weight 60.1 kg 59.3 kg General appearance: PRESENT: no acute distress Eye exam: PRESENT: PERRLA Respiratory exam: PRESENT: clear to auscultation ishan Cardiovascular exam: PRESENT: +S1, +S2 GI/Abdominal exam: PRESENT: soft Neurological exam: PRESENT: alert Results Laboratory Results: 03/06/18 04:00 03/06/18 04:00 Impressions: Chest X-Ray 02/24/18 00:00 IMPRESSION: No acute cardiopulmonary findings. Lower Extremity MRI 02/26/18 13:12 IMPRESSION: Cellulitis and myositis without evidence of deep abscess. More superficial posterior fluid collection not significantly changed from 2017. No evidence of osteomyelitis. Assessment & Plan - Diagnosis (1) Sickle cell anemia Qualifiers: Sickle-cell associated disorders: with unspecified crisis Qualified Code(s) : D57.00 - Hb-SS disease with crisis, unspecified; D57.0 - Hb-SS disease with crisis Is this a current diagnosis for this admission?: Yes (2) Sacral decubitus ulcer, stage II Is this a current diagnosis for this admission?: Yes (3) Sickle cell anemia with pain Is this a current diagnosis for this admission?: Yes (4) Septicemia Is this a current diagnosis for this admission?: Yes (5) Abscess of right thigh Is this a current diagnosis for this admission?: Yes (6) Septicemia due to Staphylococcus aureus Is this a current diagnosis for this admission?: Yes - Plan Summary Plan Summary: Continue IV antibiotic
[2018-03-08] MEDS: HYDROXYUREA 500 MG CAPSULE PO SCH (21:55)
[2018-03-09] MEDS: CEFAZOLIN SODIUM 2 GM in DEXTROSE 5%-WATER 100 ML IV SCH ×3 (01:26→18:56)
[2018-03-09] MEDS: OXYCODONE HCL IR 5 MG TABLET PO PRN (09:30)
[2018-03-09] MEDS: DICLOFENAC SODIUM 50 MG TABLET.DR PO SCH ×2 (11:40→22:09)
[2018-03-09] MEDS: ASPIRIN 81 MG TABLET, ENT COATED PO SCH (11:41)
[2018-03-09] MEDS: LEVETIRACETAM 500 MG TABLET PO SCH ×2 (11:42→22:09)
[2018-03-09] MEDS: MULTIVIT-STRESS FORMULA/ZINC TABLET PO SCH (11:43)
[2018-03-09] MEDS: FOLIC ACID 1 MG TABLET PO SCH (11:43)
[2018-03-09] MEDS: MEGESTROL ACETATE 20 MG TABLET PO SCH ×2 (11:44→22:10)
[2018-03-09] MEDS: ENOXAPARIN SODIUM INJ 40 MG/0.4 ML DISP.SYRIN SUBCUT SCH (11:44)
[2018-03-09] MEDS: OXYCODONE HCL SR 10 MG TABLET PO SCH ×2 (11:44→22:08)
[2018-03-09] MEDS: MISOPROSTOL 0.2 MG TABLET PO SCH ×2 (11:45→22:09)
[2018-03-09] MEDS: TAMSULOSIN HCL 0.4 MG CAP.SR.24H PO SCH (18:56)
--- NOTE | 2018-03-09 21:00 | PDOC PROGRESS REPORT ---
Subjective Progress Note for:: 03/09/18 Subjective:: Patient was seen by the bedside the nurse expressed concern that patient may be taking too much opioid and she suggested that the . Dosage probably should be reduced and I concur with that observation Reason For Visit: SEVERE ANEMIA,LEUCOCYTOSIS Physical Exam Vital Signs: Temp Pulse Resp BP Pulse Ox 98.5 F 116 H 12 108/66 100 03/09/18 15:46 03/09/18 15:46 03/09/18 15:46 03/09/18 15:46 03/09/18 15:46 Intake & Output 03/08/18 03/09/18 03/10/18 06:59 06:59 06:59 Intake Total 646 1532 827 Balance 646 1532 827 Weight 59.3 kg 60.1 kg General appearance: PRESENT: no acute distress Eye exam: PRESENT: PERRLA Respiratory exam: PRESENT: clear to auscultation ishan Cardiovascular exam: PRESENT: +S1, +S2 GI/Abdominal exam: PRESENT: soft Neurological exam: PRESENT: alert Results Laboratory Results: 03/06/18 04:00 03/06/18 04:00 Impressions: Chest X-Ray 02/24/18 00:00 IMPRESSION: No acute cardiopulmonary findings. Lower Extremity MRI 02/26/18 13:12 IMPRESSION: Cellulitis and myositis without evidence of deep abscess. More superficial posterior fluid collection not significantly changed from 2017. No evidence of osteomyelitis. Assessment & Plan - Diagnosis (1) Septicemia due to Staphylococcus aureus Is this a current diagnosis for this admission?: Yes (2) Sickle cell anemia Qualifiers: Sickle-cell associated disorders: with unspecified crisis Qualified Code(s) : D57.00 - Hb-SS disease with crisis, unspecified; D57.0 - Hb-SS disease with crisis Is this a current diagnosis for this admission?: Yes (3) Sacral decubitus ulcer, stage II Is this a current diagnosis for this admission?: Yes (4) Sickle cell anemia with pain Is this a current diagnosis for this admission?: Yes (5) Septicemia Is this a current diagnosis for this admission?: Yes (6) Abscess of right thigh Is this a current diagnosis for this admission?: Yes
[2018-03-09] MEDS: HYDROXYUREA 500 MG CAPSULE PO SCH (22:09)
[2018-03-10] MEDS: CEFAZOLIN SODIUM 2 GM in DEXTROSE 5%-WATER 100 ML IV SCH ×3 (03:07→17:56)
--- NOTE | 2018-03-10 07:20 | PDOC PROGRESS REPORT ---
Subjective Progress Note for:: 03/10/18 Reason For Visit: SEVERE ANEMIA,LEUCOCYTOSIS Patient ambulating with physical therapy 120 feet yesterday. Continuing to complain of right lower extremity pain. Physical Exam Vital Signs: Temp Pulse Resp BP Pulse Ox 36.8 C 110 H 18 104/73 100 03/10/18 00:24 03/10/18 00:24 03/10/18 00:24 03/10/18 00:24 03/10/18 00:24 Intake & Output 03/08/18 03/09/18 03/10/18 06:59 06:59 06:59 Intake Total 646 1532 1627 Balance 646 1532 1627 Weight 59.3 kg 60.1 kg 58.1 kg General appearance: PRESENT: no acute distress Pulses: PRESENT: +1 pedal pulses bilateral Vascular exam: PRESENT: normal capillary refill Musculoskeletal exam: PRESENT: other - Right thigh dressing clean dry and intact. Minor tenderness to palpation. Results Laboratory Results: 03/06/18 04:00 03/06/18 04:00 Impressions: Chest X-Ray 02/24/18 00:00 IMPRESSION: No acute cardiopulmonary findings. Lower Extremity MRI 02/26/18 13:12 IMPRESSION: Cellulitis and myositis without evidence of deep abscess. More superficial posterior fluid collection not significantly changed from 2017. No evidence of osteomyelitis. Status: Imported from PACS Assessment & Plan - Diagnosis (1) Abscess of right thigh Is this a current diagnosis for this admission?: Yes Plan: Continue mobilization with physical therapy. Awaiting shelter facility placement. - Time Time Spent with patient: 15-24 minutes Anticipated discharge: SNF Within: when bed available
[2018-03-10] MEDS: OXYCODONE HCL SR 10 MG TABLET PO SCH ×2 (10:28→22:32)
[2018-03-10] MEDS: FOLIC ACID 1 MG TABLET PO SCH (10:28)
[2018-03-10] MEDS: ASPIRIN 81 MG TABLET, ENT COATED PO SCH (10:28)
[2018-03-10] MEDS: MULTIVIT-STRESS FORMULA/ZINC TABLET PO SCH (10:29)
[2018-03-10] MEDS: DICLOFENAC SODIUM 50 MG TABLET.DR PO SCH ×2 (10:29→22:33)
[2018-03-10] MEDS: MISOPROSTOL 0.2 MG TABLET PO SCH ×2 (10:29→22:32)
[2018-03-10] MEDS: MEGESTROL ACETATE 20 MG TABLET PO SCH ×2 (10:29→22:32)
[2018-03-10] MEDS: ENOXAPARIN SODIUM INJ 40 MG/0.4 ML DISP.SYRIN SUBCUT SCH (10:29)
[2018-03-10] MEDS: LEVETIRACETAM 500 MG TABLET PO SCH ×2 (10:30→22:32)
[2018-03-10] MEDS: OXYCODONE HCL IR 5 MG TABLET PO PRN (17:56)
[2018-03-10] MEDS: TAMSULOSIN HCL 0.4 MG CAP.SR.24H PO SCH (17:56)
--- NOTE | 2018-03-10 21:52 | PDOC PROGRESS REPORT ---
Subjective Progress Note for:: 03/10/18 Subjective:: He has recurrent staph aureus septicemia, MSSA on antibiotic status post I&D of the left thigh Reason For Visit: SEVERE ANEMIA,LEUCOCYTOSIS Physical Exam Vital Signs: Temp Pulse Resp BP Pulse Ox 98.2 F 116 H 13 97/69 L 100 03/10/18 10:00 03/10/18 10:00 03/10/18 10:00 03/10/18 10:00 03/10/18 10:00 Intake & Output 03/09/18 03/10/18 03/11/18 06:59 06:59 06:59 Intake Total 1532 1627 500 Balance 1532 1627 500 Weight 60.1 kg 58.1 kg General appearance: PRESENT: no acute distress Eye exam: PRESENT: PERRLA Respiratory exam: PRESENT: clear to auscultation ishan Cardiovascular exam: PRESENT: +S1, +S2 GI/Abdominal exam: PRESENT: soft Neurological exam: PRESENT: alert Results Laboratory Results: 03/06/18 04:00 03/06/18 04:00 Impressions: Chest X-Ray 02/24/18 00:00 IMPRESSION: No acute cardiopulmonary findings. Lower Extremity MRI 02/26/18 13:12 IMPRESSION: Cellulitis and myositis without evidence of deep abscess. More superficial posterior fluid collection not significantly changed from 2017. No evidence of osteomyelitis. Assessment & Plan - Diagnosis (1) Septicemia due to Staphylococcus aureus Is this a current diagnosis for this admission?: Yes (2) Sickle cell anemia Qualifiers: Sickle-cell associated disorders: with unspecified crisis Qualified Code(s) : D57.00 - Hb-SS disease with crisis, unspecified; D57.0 - Hb-SS disease with crisis Is this a current diagnosis for this admission?: Yes (3) Sacral decubitus ulcer, stage II Is this a current diagnosis for this admission?: Yes (4) Sickle cell anemia with pain Is this a current diagnosis for this admission?: Yes (5) Septicemia Is this a current diagnosis for this admission?: Yes (6) Abscess of right thigh Is this a current diagnosis for this admission?: Yes - Plan Summary Plan Summary: Continue treatment
[2018-03-10] MEDS: HYDROXYUREA 500 MG CAPSULE PO SCH (22:33)
[2018-03-11] MEDS: CEFAZOLIN SODIUM 2 GM in DEXTROSE 5%-WATER 100 ML IV SCH ×2 (03:06→10:30)
--- NOTE | 2018-03-11 07:01 | PDOC PROGRESS REPORT ---
Subjective Progress Note for:: 03/11/18 Reason For Visit: SEVERE ANEMIA,LEUCOCYTOSIS Patient lying in a position on his right side in bed. He is arousable. Physical Exam Vital Signs: Temp Pulse Resp BP Pulse Ox 37.2 C 125 H 19 104/63 100 03/10/18 23:05 03/10/18 23:05 03/10/18 23:05 03/10/18 23:05 03/10/18 23:05 Intake & Output 03/10/18 03/11/18 03/12/18 06:59 06:59 06:59 Intake Total 1627 1075 Balance 1627 1075 Weight 58.1 kg 60 kg General appearance: PRESENT: no acute distress Extremities exam: PRESENT: other - Right thigh dressing clean dry and intact. Results Laboratory Results: 03/06/18 04:00 03/06/18 04:00 Impressions: Chest X-Ray 02/24/18 00:00 IMPRESSION: No acute cardiopulmonary findings. Lower Extremity MRI 02/26/18 13:12 IMPRESSION: Cellulitis and myositis without evidence of deep abscess. More superficial posterior fluid collection not significantly changed from 2017. No evidence of osteomyelitis. Status: Imported from PACS Assessment & Plan - Diagnosis (1) Abscess of right thigh Is this a current diagnosis for this admission?: Yes Plan: Wound seems to be healing uneventfully. Continued right lower extremity pain when weightbearing. Awaiting correction facility placement. - Time Time Spent with patient: 15-24 minutes Anticipated discharge: SNF Within: when bed available
[2018-03-11] MEDS: OXYCODONE HCL SR 10 MG TABLET PO SCH ×2 (08:49→21:01)
[2018-03-11] MEDS: LEVETIRACETAM 500 MG TABLET PO SCH ×2 (10:30→21:01)
[2018-03-11] MEDS: ASPIRIN 81 MG TABLET, ENT COATED PO SCH (10:30)
[2018-03-11] MEDS: MULTIVIT-STRESS FORMULA/ZINC TABLET PO SCH (10:30)
[2018-03-11] MEDS: FOLIC ACID 1 MG TABLET PO SCH (10:30)
[2018-03-11] MEDS: DICLOFENAC SODIUM 50 MG TABLET.DR PO SCH ×2 (10:31→21:02)
[2018-03-11] MEDS: MEGESTROL ACETATE 20 MG TABLET PO SCH ×2 (10:32→21:02)
[2018-03-11] MEDS: MISOPROSTOL 0.2 MG TABLET PO SCH ×2 (10:33→21:02)
[2018-03-11] MEDS: ENOXAPARIN SODIUM INJ 40 MG/0.4 ML DISP.SYRIN SUBCUT SCH (10:33)
[2018-03-11] MEDS: TAMSULOSIN HCL 0.4 MG CAP.SR.24H PO SCH (17:32)
[2018-03-11] MEDS ORDERED: CEFAZOLIN SODIUM 2 GM in DEXTROSE 5%-WATER 100 ML IV ONE (18:30)
[2018-03-11] MEDS: OXYCODONE HCL IR 5 MG TABLET PO PRN (20:04)
--- NOTE | 2018-03-11 20:58 | PDOC PROGRESS REPORT ---
Subjective Progress Note for:: 03/11/18 Subjective:: He has recurrent staph aureus septicemia, MSSA on antibiotic status post I&D of the left thigh Reason For Visit: SEVERE ANEMIA,LEUCOCYTOSIS Physical Exam Vital Signs: Temp Pulse Resp BP Pulse Ox 98.3 F 108 H 16 118/58 L 100 03/11/18 20:11 03/11/18 20:11 03/11/18 20:11 03/11/18 20:11 03/11/18 20:11 Intake & Output 03/10/18 03/11/18 03/12/18 06:59 06:59 06:59 Intake Total 1627 1075 337 Balance 1627 1075 337 Weight 58.1 kg 60 kg General appearance: PRESENT: no acute distress Eye exam: PRESENT: PERRLA Respiratory exam: PRESENT: clear to auscultation ishan Cardiovascular exam: PRESENT: +S1, +S2 Neurological exam: PRESENT: alert Results Laboratory Results: 03/06/18 04:00 03/06/18 04:00 03/06/18 11:10 Blood Blood Culture - Final NO GROWTH IN 5 DAYS 03/06/18 11:21 Blood Blood Culture - Final NO GROWTH IN 5 DAYS Impressions: Chest X-Ray 02/24/18 00:00 IMPRESSION: No acute cardiopulmonary findings. Lower Extremity MRI 02/26/18 13:12 IMPRESSION: Cellulitis and myositis without evidence of deep abscess. More superficial posterior fluid collection not significantly changed from 2017. No evidence of osteomyelitis. Assessment & Plan - Diagnosis (1) Septicemia due to Staphylococcus aureus Is this a current diagnosis for this admission?: Yes (2) Sickle cell anemia Qualifiers: Sickle-cell associated disorders: with unspecified crisis Qualified Code(s) : D57.00 - Hb-SS disease with crisis, unspecified; D57.0 - Hb-SS disease with crisis Is this a current diagnosis for this admission?: Yes (3) Sacral decubitus ulcer, stage II Is this a current diagnosis for this admission?: Yes (4) Sickle cell anemia with pain Is this a current diagnosis for this admission?: Yes (5) Septicemia Is this a current diagnosis for this admission?: Yes (6) Abscess of right thigh Is this a current diagnosis for this admission?: Yes
[2018-03-11] MEDS: HYDROXYUREA 500 MG CAPSULE PO SCH (21:02)
[2018-03-12] MEDS: OXYCODONE HCL IR 5 MG TABLET PO PRN ×2 (01:33→13:46)
[2018-03-12] MEDS: CEFAZOLIN SODIUM 2 GM in DEXTROSE 5%-WATER 100 ML IV SCH ×3 (01:34→17:23)
[2018-03-12] MEDS: DICLOFENAC SODIUM 50 MG TABLET.DR PO SCH ×2 (10:15→21:59)
[2018-03-12] MEDS: ASPIRIN 81 MG TABLET, ENT COATED PO SCH (10:15)
[2018-03-12] MEDS: LEVETIRACETAM 500 MG TABLET PO SCH ×2 (10:15→21:59)
[2018-03-12] MEDS: FOLIC ACID 1 MG TABLET PO SCH (10:15)
[2018-03-12] MEDS: MEGESTROL ACETATE 20 MG TABLET PO SCH ×2 (10:15→21:59)
[2018-03-12] MEDS: MISOPROSTOL 0.2 MG TABLET PO SCH ×2 (10:15→21:59)
[2018-03-12] MEDS: ENOXAPARIN SODIUM INJ 40 MG/0.4 ML DISP.SYRIN SUBCUT SCH (10:16)
[2018-03-12] MEDS: MULTIVIT-STRESS FORMULA/ZINC TABLET PO SCH (10:16)
[2018-03-12] MEDS: OXYCODONE HCL SR 10 MG TABLET PO SCH ×2 (10:16→21:59)
--- NOTE | 2018-03-12 17:01 | PDOC PROGRESS REPORT ---
Subjective Progress Note for:: 03/12/18 Subjective:: Patient seen by the bedside, I had a long discussion with patient's" uncle regarding his condition Reason For Visit: SEVERE ANEMIA,LEUCOCYTOSIS Physical Exam Vital Signs: Temp Pulse Resp BP Pulse Ox 98.4 F 103 H 12 99/65 L 100 03/12/18 15:46 03/12/18 15:46 03/12/18 15:46 03/12/18 15:46 03/12/18 15:46 Intake & Output 03/11/18 03/12/18 03/13/18 06:59 06:59 06:59 Intake Total 1075 967 360 Balance 1075 967 360 Weight 60 kg 58.6 kg General appearance: PRESENT: no acute distress Head exam: PRESENT: atraumatic, normocephalic Neck exam: PRESENT: full ROM Respiratory exam: PRESENT: clear to auscultation ishan Cardiovascular exam: PRESENT: RRR, +S1, +S2 Pulses: PRESENT: normal dorsalis pedis pul, +2 pedal pulses bilateral Vascular exam: PRESENT: normal capillary refill GI/Abdominal exam: PRESENT: normal bowel sounds, soft Rectal exam: PRESENT: deferred Neurological exam: PRESENT: alert, awake, oriented to person, oriented to place , oriented to time, oriented to situation, CN II-XII grossly intact Psychiatric exam: PRESENT: appropriate affect, normal mood Skin exam: PRESENT: dry, intact, warm Results Laboratory Results: 03/06/18 04:00 03/06/18 04:00 Impressions: Chest X-Ray 02/24/18 00:00 IMPRESSION: No acute cardiopulmonary findings. Lower Extremity MRI 02/26/18 13:12 IMPRESSION: Cellulitis and myositis without evidence of deep abscess. More superficial posterior fluid collection not significantly changed from 2017. No evidence of osteomyelitis. Assessment & Plan - Diagnosis (1) Septicemia due to Staphylococcus aureus Is this a current diagnosis for this admission?: Yes (2) Sickle cell anemia Qualifiers: Sickle-cell associated disorders: with unspecified crisis Qualified Code(s) : D57.00 - Hb-SS disease with crisis, unspecified; D57.0 - Hb-SS disease with crisis Is this a current diagnosis for this admission?: Yes (3) Sacral decubitus ulcer, stage II Is this a current diagnosis for this admission?: Yes (4) Sickle cell anemia with pain Is this a current diagnosis for this admission?: Yes (5) Septicemia Is this a current diagnosis for this admission?: Yes (6) Abscess of right thigh Is this a current diagnosis for this admission?: Yes
[2018-03-12] MEDS: TAMSULOSIN HCL 0.4 MG CAP.SR.24H PO SCH (17:23)
[2018-03-12 17:42] LABS: ABSOLUTE BASOPHILS # (AUTO) 0.1 10^3/uL (0.0-0.2); ABSOLUTE EOSINOPHILS # (AUTO) 0.3 10^3/uL (0.0-0.6); ABSOLUTE LYMPHOCYTES (AUTO) 2.8 10^3/uL (0.5-4.7); ABSOLUTE MONOCYTES (AUTO) 1.1 10^3/uL (0.1-1.4); ABSOLUTE NEUT (AUTO) 10.5 10^3/uL (1.7-8.2); BASOPHILS % (AUTO) 0.7 % (0-2); EOSINOPHILS % (AUTO) 1.8 % (0-6); HEMATOCRIT 22.1 % (37.9-51.0); LYMPHOCYTES % (AUTO) 18.9 % (13-45); MEAN CORPUSCULAR HEMOGLOBIN 28.7 pg (27.0-33.4); MEAN CORPUSCULAR HGB CONC 33.3 g/dL (32.0-36.0); MEAN CORPUSCULAR VOLUME 86 fl (80-97); MONOCYTES % (AUTO) 7.2 % (3-13); PLATELET COUNT 601 10^3/uL (150-450); RED BLOOD COUNT 2.57 10^6/uL (4.35-5.55); RED CELL DISTRIBUTION WIDTH 15.7 % (11.5-14.0); SEGMENTED NEUTROPHILS % (AUTO) 71.4 % (42-78); TOTAL CELLS COUNTED % (AUTO) 100 %; WHITE BLOOD COUNT 14.7 10^3/uL (4.0-10.5)
[2018-03-12 17:52] LABS: ALANINE AMINOTRANSFERASE 23 U/L (21-72); ALBUMIN 3.3 g/dL (3.5-5.0); ALKALINE PHOSPHATASE 111 U/L (38-126); ANION GAP 12 (5-19); ASPARTATE AMINO TRANSFERASE 32 U/L (17-59); BILIRUBIN,DIRECT 0.3 mg/dL (0.0-0.4); BILIRUBIN,TOTAL 0.5 mg/dL (0.2-1.3); BLOOD UREA NITROGEN 29 mg/dL (7-20); CALCIUM 9.9 mg/dL (8.4-10.2); CARBON DIOXIDE 29 mmol/L (22-30); CHLORIDE 105 mmol/L (98-107); GLUCOSE 101 mg/dL (75-110); POTASSIUM 4.5 mmol/L (3.6-5.0); SODIUM 145.7 mmol/L (137-145); TOTAL PROTEIN 8.3 g/dL (6.3-8.2)
[2018-03-12 17:56] LABS: HEMOGLOBIN 7.4 g/dL (13.5-17.0)
[2018-03-12] MEDS: HYDROXYUREA 500 MG CAPSULE PO SCH (21:59)
[2018-03-13] MEDS: CEFAZOLIN SODIUM 2 GM in DEXTROSE 5%-WATER 100 ML IV SCH ×3 (02:27→17:47)
[2018-03-13 05:03] LABS: ABSOLUTE BASOPHILS # (AUTO) 0.1 10^3/uL (0.0-0.2); ABSOLUTE EOSINOPHILS # (AUTO) 0.4 10^3/uL (0.0-0.6); ABSOLUTE LYMPHOCYTES (AUTO) 3.1 10^3/uL (0.5-4.7); ABSOLUTE MONOCYTES (AUTO) 1.2 10^3/uL (0.1-1.4); ABSOLUTE NEUT (AUTO) 9.3 10^3/uL (1.7-8.2); EOSINOPHILS % (AUTO) 3.1 % (0-6); HEMATOCRIT 21.7 % (37.9-51.0); MEAN CORPUSCULAR HEMOGLOBIN 28.9 pg (27.0-33.4); MEAN CORPUSCULAR HGB CONC 33.8 g/dL (32.0-36.0); MEAN CORPUSCULAR VOLUME 86 fl (80-97); MONOCYTES % (AUTO) 8.3 % (3-13); PLATELET COUNT 608 10^3/uL (150-450); RED BLOOD COUNT 2.54 10^6/uL (4.35-5.55); RED CELL DISTRIBUTION WIDTH 15.4 % (11.5-14.0); SEGMENTED NEUTROPHILS % (AUTO) 65.6 % (42-78); TOTAL CELLS COUNTED % (AUTO) 100 %; WHITE BLOOD COUNT 14.1 10^3/uL (4.0-10.5)
[2018-03-13 05:20] LABS: HEMOGLOBIN 7.3 g/dL (13.5-17.0)
[2018-03-13 05:24] LABS: ALANINE AMINOTRANSFERASE 16 U/L (21-72); ALBUMIN 3.4 g/dL (3.5-5.0); ALKALINE PHOSPHATASE 111 U/L (38-126); ANION GAP 10 (5-19); ASPARTATE AMINO TRANSFERASE 37 U/L (17-59); BILIRUBIN,DIRECT 0.4 mg/dL (0.0-0.4); BILIRUBIN,TOTAL 0.4 mg/dL (0.2-1.3); BLOOD UREA NITROGEN 30 mg/dL (7-20); CALCIUM 9.7 mg/dL (8.4-10.2); CARBON DIOXIDE 29 mmol/L (22-30); CHLORIDE 107 mmol/L (98-107); GLUCOSE 113 mg/dL (75-110); POTASSIUM 4.7 mmol/L (3.6-5.0); SODIUM 146.3 mmol/L (137-145); TOTAL PROTEIN 8.5 g/dL (6.3-8.2)
--- NOTE | 2018-03-13 06:47 | PDOC PROGRESS REPORT ---
Subjective Progress Note for:: 03/13/18 Reason For Visit: SEVERE ANEMIA,LEUCOCYTOSIS 28-year-old black male with sickle cell disease with multiple ongoing medical issues and most recently status post an I&D of a right vastus lateralis abscess Physical Exam Vital Signs: Temp Pulse Resp BP Pulse Ox 36.9 C 119 H 14 96/54 L 100 03/12/18 23:16 03/12/18 23:16 03/12/18 23:16 03/12/18 23:16 03/12/18 23:16 Intake & Output 03/11/18 03/12/18 03/13/18 06:59 06:59 06:59 Intake Total 6722 500 9265 Balance 9799 375 7013 Weight 60 kg 58.6 kg General appearance: PRESENT: no acute distress Respiratory exam: PRESENT: unlabored Cardiovascular exam: PRESENT: tachycardia Pulses: PRESENT: +1 pedal pulses bilateral Vascular exam: PRESENT: normal capillary refill GI/Abdominal exam: PRESENT: soft Rectal exam: PRESENT: deferred Musculoskeletal exam: PRESENT: other - Right thigh dressing clean dry and intact. There is minimal induration and what appears to be minimal tenderness. Psychiatric exam: PRESENT: flat affect Skin exam: PRESENT: dry, intact, warm. ABSENT: cyanosis, rash Results Laboratory Results: 03/13/18 04:42 03/13/18 04:42 03/12/18 03/12/18 03/13/18 17:23 17:23 04:42 WBC 14.7 H 14.1 H RBC 2.57 L 2.54 L Hgb 7.4 L 7.3 L Hct 22.1 L 21.7 L MCV 86 86 MCH 28.7 28.9 MCHC 33.3 33.8 RDW 15.7 H 15.4 H Plt Count 601 H 608 H Seg Neutrophils % 71.4 65.6 Lymphocytes % 18.9 22.0 Monocytes % 7.2 8.3 Eosinophils % 1.8 3.1 Basophils % 0.7 1.0 Absolute Neutrophils 10.5 H 9.3 H Absolute Lymphocytes 2.8 3.1 Absolute Monocytes 1.1 1.2 Absolute Eosinophils 0.3 0.4 Absolute Basophils 0.1 0.1 Sodium 145.7 H Potassium 4.5 Chloride 105 Carbon Dioxide 29 Anion Gap 12 BUN 29 H Creatinine 0.65 Est GFR ( Amer) > 60 Est GFR (Non-Af Amer) > 60 Glucose 101 Calcium 9.9 Total Bilirubin 0.5 AST 32 ALT 23 Alkaline Phosphatase 111 Total Protein 8.3 H Albumin 3.3 L 03/13/18 04:42 WBC RBC Hgb Hct MCV MCH MCHC RDW Plt Count Seg Neutrophils % Lymphocytes % Monocytes % Eosinophils % Basophils % Absolute Neutrophils Absolute Lymphocytes Absolute Monocytes Absolute Eosinophils Absolute Basophils Sodium 146.3 H Potassium 4.7 Chloride 107 Carbon Dioxide 29 Anion Gap 10 BUN 30 H Creatinine 0.70 Est GFR ( Amer) > 60 Est GFR (Non-Af Amer) > 60 Glucose 113 H Calcium 9.7 Total Bilirubin 0.4 AST 37 ALT 16 L Alkaline Phosphatase 111 Total Protein 8.5 H Albumin 3.4 L Impressions: Chest X-Ray 02/24/18 00:00 IMPRESSION: No acute cardiopulmonary findings. Lower Extremity MRI 02/26/18 13:12 IMPRESSION: Cellulitis and myositis without evidence of deep abscess. More superficial posterior fluid collection not significantly changed from 2017. No evidence of osteomyelitis. Status: Imported from PACS Assessment & Plan - Diagnosis (1) Abscess of right thigh Is this a current diagnosis for this admission?: Yes Plan: 28-year-old black male with multiple ongoing medical issues status post an I&D of a right thigh abscess which seems to be resolving. Patient is making slow progress with physical therapy and is now ambulating 140 feet. It is difficult to ascertain how much pain is involved with that ambulation because I do not really trust the patient's report. Physical therapy indicates 4 out of 5 pain. - Time Time Spent with patient: 15-24 minutes Anticipated discharge: Other Within: Other
[2018-03-13] MEDS: ENOXAPARIN SODIUM INJ 40 MG/0.4 ML DISP.SYRIN SUBCUT SCH (10:01)
[2018-03-13] MEDS: LEVETIRACETAM 500 MG TABLET PO SCH ×2 (10:02→21:05)
[2018-03-13] MEDS: FOLIC ACID 1 MG TABLET PO SCH (10:02)
[2018-03-13] MEDS: MISOPROSTOL 0.2 MG TABLET PO SCH ×2 (10:02→21:05)
[2018-03-13] MEDS: DICLOFENAC SODIUM 50 MG TABLET.DR PO SCH ×2 (10:02→21:05)
[2018-03-13] MEDS: OXYCODONE HCL SR 10 MG TABLET PO SCH ×2 (10:02→21:05)
[2018-03-13] MEDS: MEGESTROL ACETATE 20 MG TABLET PO SCH ×2 (10:02→21:05)
[2018-03-13] MEDS: MULTIVIT-STRESS FORMULA/ZINC TABLET PO SCH (10:02)
[2018-03-13] MEDS: ASPIRIN 81 MG TABLET, ENT COATED PO SCH (10:05)
[2018-03-13] MEDS: OXYCODONE HCL IR 5 MG TABLET PO PRN ×2 (13:10→19:28)
--- NOTE | 2018-03-13 16:39 | PDOC PROGRESS REPORT ---
Subjective Progress Note for:: 03/13/18 Subjective:: Patient was seen by the bedside, nurses stated dressing the wound on the right thigh, hopefully discharge sometime this week to longterm for rehabilitation Reason For Visit: SEVERE ANEMIA,LEUCOCYTOSIS Physical Exam Vital Signs: Temp Pulse Resp BP Pulse Ox 98.5 F 111 H 15 95/45 L 99 03/13/18 16:17 03/13/18 16:17 03/13/18 16:17 03/13/18 16:17 03/13/18 16:17 Intake & Output 03/12/18 03/13/18 03/14/18 06:59 06:59 06:59 Intake Total 967 1064 Balance 967 1064 Weight 58.6 kg 57.2 kg General appearance: PRESENT: no acute distress Eye exam: PRESENT: PERRLA Respiratory exam: PRESENT: clear to auscultation ishan Cardiovascular exam: PRESENT: +S1, +S2 GI/Abdominal exam: PRESENT: soft Results Laboratory Results: 03/13/18 04:42 03/13/18 04:42 03/12/18 03/12/18 03/13/18 17:23 17:23 04:42 WBC 14.7 H 14.1 H RBC 2.57 L 2.54 L Hgb 7.4 L 7.3 L Hct 22.1 L 21.7 L MCV 86 86 MCH 28.7 28.9 MCHC 33.3 33.8 RDW 15.7 H 15.4 H Plt Count 601 H 608 H Seg Neutrophils % 71.4 65.6 Lymphocytes % 18.9 22.0 Monocytes % 7.2 8.3 Eosinophils % 1.8 3.1 Basophils % 0.7 1.0 Absolute Neutrophils 10.5 H 9.3 H Absolute Lymphocytes 2.8 3.1 Absolute Monocytes 1.1 1.2 Absolute Eosinophils 0.3 0.4 Absolute Basophils 0.1 0.1 Sodium 145.7 H Potassium 4.5 Chloride 105 Carbon Dioxide 29 Anion Gap 12 BUN 29 H Creatinine 0.65 Est GFR ( Amer) > 60 Est GFR (Non-Af Amer) > 60 Glucose 101 Calcium 9.9 Total Bilirubin 0.5 AST 32 ALT 23 Alkaline Phosphatase 111 Total Protein 8.3 H Albumin 3.3 L 03/13/18 04:42 WBC RBC Hgb Hct MCV MCH MCHC RDW Plt Count Seg Neutrophils % Lymphocytes % Monocytes % Eosinophils % Basophils % Absolute Neutrophils Absolute Lymphocytes Absolute Monocytes Absolute Eosinophils Absolute Basophils Sodium 146.3 H Potassium 4.7 Chloride 107 Carbon Dioxide 29 Anion Gap 10 BUN 30 H Creatinine 0.70 Est GFR ( Amer) > 60 Est GFR (Non-Af Amer) > 60 Glucose 113 H Calcium 9.7 Total Bilirubin 0.4 AST 37 ALT 16 L Alkaline Phosphatase 111 Total Protein 8.5 H Albumin 3.4 L Impressions: Chest X-Ray 02/24/18 00:00 IMPRESSION: No acute cardiopulmonary findings. Lower Extremity MRI 02/26/18 13:12 IMPRESSION: Cellulitis and myositis without evidence of deep abscess. More superficial posterior fluid collection not significantly changed from 2017. No evidence of osteomyelitis. Assessment & Plan - Diagnosis (1) Septicemia due to Staphylococcus aureus Is this a current diagnosis for this admission?: Yes (2) Sickle cell anemia Qualifiers: Sickle-cell associated disorders: with unspecified crisis Qualified Code(s) : D57.00 - Hb-SS disease with crisis, unspecified; D57.0 - Hb-SS disease with crisis Is this a current diagnosis for this admission?: Yes (3) Sacral decubitus ulcer, stage II Is this a current diagnosis for this admission?: Yes (4) Sickle cell anemia with pain Is this a current diagnosis for this admission?: Yes (5) Septicemia Is this a current diagnosis for this admission?: Yes (6) Abscess of right thigh Is this a current diagnosis for this admission?: Yes
[2018-03-13] MEDS: TAMSULOSIN HCL 0.4 MG CAP.SR.24H PO SCH (17:50)
[2018-03-13] MEDS: HYDROXYUREA 500 MG CAPSULE PO SCH (21:05)
[2018-03-14] MEDS: CEFAZOLIN SODIUM 2 GM in DEXTROSE 5%-WATER 100 ML IV SCH ×3 (04:12→18:15)
[2018-03-14] MEDS: OXYCODONE HCL IR 5 MG TABLET PO PRN ×2 (06:17→16:16)
[2018-03-14] MEDS: ASPIRIN 81 MG TABLET, ENT COATED PO SCH (09:48)
[2018-03-14] MEDS: MEGESTROL ACETATE 20 MG TABLET PO SCH ×2 (09:48→21:27)
[2018-03-14] MEDS: LEVETIRACETAM 500 MG TABLET PO SCH ×2 (09:48→21:27)
[2018-03-14] MEDS: MISOPROSTOL 0.2 MG TABLET PO SCH ×2 (09:48→21:27)
[2018-03-14] MEDS: DICLOFENAC SODIUM 50 MG TABLET.DR PO SCH ×2 (09:48→21:27)
[2018-03-14] MEDS: OXYCODONE HCL SR 10 MG TABLET PO SCH ×2 (09:49→21:27)
[2018-03-14] MEDS: FOLIC ACID 1 MG TABLET PO SCH (09:49)
[2018-03-14] MEDS: MULTIVIT-STRESS FORMULA/ZINC TABLET PO SCH (09:52)
[2018-03-14] MEDS: ENOXAPARIN SODIUM INJ 40 MG/0.4 ML DISP.SYRIN SUBCUT SCH (10:05)
[2018-03-14] MEDS: TAMSULOSIN HCL 0.4 MG CAP.SR.24H PO SCH (18:13)
--- NOTE | 2018-03-14 19:35 | PDOC TRANSFER SUMMARY ---
General - Admit/Disc Date/PCP Admission Date/Primary Care Provider: 02/25/18 11:31 RUMA RUTH MD Discharge Date: 03/14/18 - Discharge Diagnosis (1) Septicemia due to Staphylococcus aureus Is this a current diagnosis for this admission?: Yes (2) Sickle cell anemia Is this a current diagnosis for this admission?: Yes (3) Sacral decubitus ulcer, stage II Is this a current diagnosis for this admission?: Yes (4) Sickle cell anemia with pain Is this a current diagnosis for this admission?: Yes (5) Septicemia Is this a current diagnosis for this admission?: Yes (6) Abscess of right thigh Is this a current diagnosis for this admission?: Yes - Additional Information Home Medications: Diclofenac Sodium [Voltaren 50 mg Tablet.dr] 50 mg PO Q12 01/05/18 Folic Acid [Folvite 1 mg Tablet] 1 mg PO DAILY 01/05/18 Hydroxyurea 500 mg PO DAILY 01/05/18 Levetiracetam 500 mg PO Q12 01/05/18 Megestrol Acetate 40 mg PO Q12 01/05/18 Misoprostol [Cytotec 0.2 mg Tablet] 200 mcg PO Q12 01/05/18 Tamsulosin HCl 0.4 mg PO QPM 01/05/18 Oxycodone HCl/Acetaminophen [Percocet 5-325 mg Tablet] 1 tab PO Q6HP PRN Cefazolin Sodium [Ancef Inj 1 gm Vial] 2 gm IV Q8A vial 03/14/18 History of Present Illness Admission Date/PCP: 02/25/18 11:31 RUMA RUTH MD History of Present Illness: EMIL BARNES is a 28 year old male, Patient presently in the halfway for rehabilitation he was recently admitted in this hospital when he had methicillin sensitive staph aureus septicemia associated with infected left hip prosthetics and abscess of the right thigh on that admission he underwent surgical debridement of the left hip and also incision and drainage of the right thigh he had routine blood work in the halfway he was found to have severe anemia with hemoglobin of 5 and severe leukocytosis WBC 22.8 he was referred to the emergency room for evaluation. He has a history of sickle cell disease with sickle cell anemia ,history of multiple blood transfusion. In the emergency room he was evaluated because of the severe leukocytosis and severe anemia hospital admission was advised. There is no localizing source of infection that is apparent in this patient, the left hip is clean there is no drainage ,he has decubiti ulcer in the sacral stage I which is clean ,the right thigh which was incised the last time is clean but he has inflamed right knee suggesting that there could be a potential source of the leukocytosis, he may need MRI of the right knee, orthopedic consultation may be requested depending on the finding of the MRI of the right knee, he is presently empirically started on Levaquin, the last time he was in the hospital the staph aureus that was cultured was pansensitive to all antibiotic. Hospital Course Hospital Course: Patient was admitted for the management of staph aureus septicemia associated with abscess of the right thigh, he was seen by orthopedic he underwent incision and drainage of the right thigh, wound dressing was done by nursing staff, the staph aureus is pansensitive to antibiotic, initially he was on Levaquin, this was transitioned to cefazolin IV, IV continue antibiotic for 7 more days, He has sickle cell anemia, he was transfused with packed red blood cells, pain control achieved with opioid, oxycodone. He was also seen by physical therapy Physical Exam Vital Signs: Temp Pulse Resp BP Pulse Ox 97.5 F 121 H 16 108/55 L 98 03/14/18 16:00 03/14/18 16:00 03/14/18 16:00 03/14/18 16:00 03/14/18 16:00 Intake & Output 03/13/18 03/14/18 03/15/18 06:59 06:59 06:59 Intake Total 1064 880 791 Balance 1064 880 791 Weight 57.2 kg General appearance: PRESENT: no acute distress Head exam: PRESENT: atraumatic, normocephalic Eye exam: PRESENT: conjunctiva pink, EOMI, PERRLA Mouth exam: PRESENT: moist, tongue midline Respiratory exam: PRESENT: clear to auscultation ishan Cardiovascular exam: PRESENT: RRR, +S1, +S2 Vascular exam: PRESENT: normal capillary refill GI/Abdominal exam: PRESENT: normal bowel sounds, soft Rectal exam: PRESENT: deferred Extremities exam: PRESENT: full ROM Neurological exam: PRESENT: alert Psychiatric exam: PRESENT: appropriate affect, normal mood Skin exam: PRESENT: dry, intact, warm. ABSENT: cyanosis, rash Results Laboratory Results: 03/13/18 04:42 03/13/18 04:42 Impressions: Chest X-Ray 02/24/18 00:00 IMPRESSION: No acute cardiopulmonary findings. Lower Extremity MRI 02/26/18 13:12 IMPRESSION: Cellulitis and myositis without evidence of deep abscess. More superficial posterior fluid collection not significantly changed from 2017. No evidence of osteomyelitis. Qualifiers - * PATIENT BEING DISCHARGED WITH ANY OF THE FOLLOWING DIAGNOSIS: No - Continue IV antibiotic for 7 more days
[2018-03-14] MEDS: HYDROXYUREA 500 MG CAPSULE PO SCH (21:27)
[2018-03-15] MEDS: CEFAZOLIN SODIUM 2 GM in DEXTROSE 5%-WATER 100 ML IV SCH ×2 (01:54→10:19)
[2018-03-15] MEDS: OXYCODONE HCL IR 5 MG TABLET PO PRN (01:57)
[2018-03-15] MEDS: MULTIVIT-STRESS FORMULA/ZINC TABLET PO SCH (10:19)
[2018-03-15] MEDS: FOLIC ACID 1 MG TABLET PO SCH (10:19)
[2018-03-15] MEDS: ASPIRIN 81 MG TABLET, ENT COATED PO SCH (10:19)
[2018-03-15] MEDS: OXYCODONE HCL SR 10 MG TABLET PO SCH (10:19)
[2018-03-15] MEDS: ENOXAPARIN SODIUM INJ 40 MG/0.4 ML DISP.SYRIN SUBCUT SCH (10:19)
[2018-03-15] MEDS: LEVETIRACETAM 500 MG TABLET PO SCH (10:19)
[2018-03-15] MEDS: DICLOFENAC SODIUM 50 MG TABLET.DR PO SCH (10:20)
[2018-03-15] MEDS: MEGESTROL ACETATE 20 MG TABLET PO SCH (10:20)
[2018-03-15] MEDS: MISOPROSTOL 0.2 MG TABLET PO SCH (10:20)
[2018-03-15 12:17] VITALS: BP 109/60
== END 2018-03-15 12:00 | DRG 871 ==
LOC: ER 15:50 → INTOOBSV 18:28 → EH 18:28 → 4S 19:39 → OBSVTOIN 02-25 11:31
PROVIDERS: ADMIT Internal Medicine; ATTEND Internal Medicine
PROC: 30233N1 Transfusion of Nonautologous Red Blood Cells into Peripheral Vein, Percutaneous Approach (ICD-10-PCS; principal; 2018-02-23)
PROC: 0Y990ZZ Drainage of Right Lower Extremity, Open Approach (ICD-10-PCS; 2018-02-28)
DX: A41.01 Sepsis due to Methicillin susceptible Staphylococcus aureus (principal); D57.00 Hb-SS disease with crisis, unspecified; T81.4XXA Infection following a procedure, initial encounter; L02.415 Cutaneous abscess of right lower limb; M00.9 Pyogenic arthritis, unspecified; Z68.1 Body mass index [BMI] 19.9 or less, adult; L89.152 Pressure ulcer of sacral region, stage 2; K21.9 Gastro-esophageal reflux disease without esophagitis; F41.9 Anxiety disorder, unspecified; D72.829 Elevated white blood cell count, unspecified; R01.1 Cardiac murmur, unspecified; G40.909 Epilepsy, unspecified, not intractable, without status epilepticus; B95.61 Methicillin susceptible Staphylococcus aureus infection as the cause of diseases classified elsewhere; R62.7 Adult failure to thrive
CPT/HCPCS: 00400; 36415; 36430; 71045; 80048; 80053; 81001; 82553; 83735; 84100; 84439; 84443; 84484; 85025; 85027; 86850; 86900; 86901; 86902; 86920; 87040; 87070; 87075; 87077; 87086; 87186; 87205; 99291; A6266; A9577; G0378; G8978-GP; G8979-GP; J0131; J0330; J0690; J0696; J1100; J1170; J1650; J1885; J1956; J2250; J2270; J2405; J2704; J3010; J3490; J7030; J7120; P9016

== ENCOUNTER 2018-04-26 10:03 | Outpatient (CLI) | payer MEDICARE, MEDICAID ==
[2018-04-26 10:33] LABS: HEMATOCRIT 15.3 % (37.9-51.0); MEAN CORPUSCULAR HEMOGLOBIN 29.2 pg (27.0-33.4); MEAN CORPUSCULAR HGB CONC 33.9 g/dL (32.0-36.0); MEAN CORPUSCULAR VOLUME 86 fl (80-97); PLATELET COUNT 380 10^3/uL (150-450); RED BLOOD COUNT 1.77 10^6/uL (4.35-5.55); RED CELL DISTRIBUTION WIDTH 18.6 % (11.5-14.0); WHITE BLOOD COUNT 13.4 10^3/uL (4.0-10.5)
[2018-04-26 10:41] LABS: HEMOGLOBIN 5.2 g/dL (13.5-17.0)
[2018-04-26] MEDS ORDERED: ACETAMINOPHEN 325 MG TABLET PO PRN (11:00)
[2018-04-26] MEDS ORDERED: DIPHENHYDRAMINE HCL 25 MG CAPSULE PO PRN (11:00)
[2018-04-26] MEDS ORDERED: NORMAL SALINE 250 ML IV PRN (11:02)
[2018-04-26] MEDS ORDERED: FUROSEMIDE INJ/PF 20 MG/2 ML SDV IV PRN (11:15)
[2018-04-26 19:39] VITALS: BP 92/46
[2018-04-26 20:57] LABS: HEMATOCRIT 20.6 % (37.9-51.0); MEAN CORPUSCULAR HEMOGLOBIN 29.3 pg (27.0-33.4); MEAN CORPUSCULAR HGB CONC 34.6 g/dL (32.0-36.0); MEAN CORPUSCULAR VOLUME 85 fl (80-97); PLATELET COUNT 329 10^3/uL (150-450); RED BLOOD COUNT 2.43 10^6/uL (4.35-5.55); RED CELL DISTRIBUTION WIDTH 17.1 % (11.5-14.0); WHITE BLOOD COUNT 13.4 10^3/uL (4.0-10.5)
[2018-04-26 21:01] LABS: HEMOGLOBIN 7.1 g/dL (13.5-17.0)
== END 2018-04-26 20:56 ==
LOC: II 10:03 → 5TH 10:15 → 2S 16:09 → II 20:56
PROVIDERS: ATTEND Internal Medicine Medical Oncology
PROC: 30233N1 Transfusion of Nonautologous Red Blood Cells into Peripheral Vein, Percutaneous Approach (ICD-10-PCS; principal; 2018-04-26)
DX: D57.1 Sickle-cell disease without crisis (principal)
CPT/HCPCS: 86900; 86901; 36415; 36430; 86850; 85027; 86920; 86902 ×6; P9016; A9270 ×2

== ENCOUNTER 2018-05-17 12:25 | Inpatient (IN) | payer MEDICARE, MEDICAID ==
--- NOTE | 2018-05-17 13:09 | ER Document Report ---
ED Medical Screen (RME) - General Chief Complaint: Abnormal Lab Results Stated Complaint: ABNORMAL LABS Time Seen by Provider: 05/17/18 13:04 Notes: RAPID MEDICAL EVALUATION DISCLOSURE I have seen this patient as part of a Rapid Medical Evaluation and, if applicable, placed any initially appropriate orders. The patient will be seen and fully evaluated, including a full history and physical exam, by a provider ( in Main ED or Fast Track) when a room becomes available. 28-year-old male PMH sickle cell anemia sent here by his senior director of global commercial technology solutions for low blood counts. The clinical research specialist reports his blood counts including his platelets are low. The patient has had generalized weakness all day today but denies any bleeding. He usually has to be given several transfusions per year. He does not have any pain anywhere. EXAM CTAB RRR TRAVEL OUTSIDE OF THE [place] IN LAST 30 DAYS: No - Related Data Allergies/Adverse Reactions: No Known Drug Allergies Allergy (Unknown, Verified 05/17/18 12:29) Past Medical History - Past Medical History Cardiac Medical History: Reports: Hx Heart Murmur Denies: Hx Atrial Fibrillation, Hx Congestive Heart Failure, Hx Coronary Artery Disease, Hx Heart Attack, Hx Hypertension, Hx Peripheral Vascular Disease , Hx Pulmonary Embolism Pulmonary Medical History: Denies: Hx Asthma, Hx Bronchitis, Hx COPD, Hx Pneumonia, Hx Tuberculosis Neurological Medical History: Reports: Hx Cerebrovascular Accident - ANEURYSM 2010, LEFT SIDED DEFICIT, Hx Seizures - ON MEDS Endocrine Medical History: Denies: Hx Graves' Disease, Hx Hyperthyroidism, Hx Hypothyroidism Renal/ Medical History: Denies: Hx Peritoneal Dialysis Malignancy Medical History: Denies Hx Leukemia, Denies Hx Lung Cancer GI Medical History: Reports: Hx Gastroesophageal Reflux Disease. Denies: Hx Pancreatitis, Hx Ulcer Musculoskeltal Medical History: Reports Hx Arthritis, Denies Hx Fibromyalgia, Denies Hx Multiple Sclerosis, Denies Hx Muscular Dystrophy Psychiatric Medical History: Reports: Hx Anxiety, Hx Depression Denies: Hx Bipolar Disorder, Hx Dementia, Hx Schizophrenia Traumatic Medical History: Reports: Hx Fractures - proximal femur Infectious Medical History: Denies: Hx HIV Past Surgical History: Reports: Hx Cholecystectomy, Hx Oral Surgery - reconstruction, Hx Orthopedic Surgery - Patient underwent open reduction internal fixation of bilateral proximal fe, Other - Patient tracheostomy and PEG tube placement [facility] 3 years. Denies: Hx Appendectomy, Hx Bowel Surgery, Hx Coronary Artery Bypass Graft, Hx Gastric Bypass Surgery, Hx Herniorrhaphy, Hx Pacemaker, Hx Tonsillectomy - Immunizations Immunizations up to date: Yes Hx Diphtheria, Pertussis, Tetanus Vaccination: Yes History of Influenza Vaccine for 08/2017 - 12/2017 Season: Yes Influenza Administration Date for 08/2017 - 12/2017 Season: 08/01/17 Physical Exam - Vital signs Vitals: Temp Pulse Resp BP Pulse Ox 98.1 F 95 16 106/67 100 05/17/18 12:33 05/17/18 12:33 05/17/18 12:33 05/17/18 12:33 05/17/18 12:33 Course - Vital Signs Vital signs: Temp Pulse Resp BP Pulse Ox 98.1 F 95 16 106/67 100 05/17/18 12:33 05/17/18 12:33 05/17/18 12:33 05/17/18 12:33 05/17/18 12:33 Doctor's Discharge - Discharge Referrals: RUMA RUTH MD [Primary Care Provider] - Follow up as needed
[2018-05-17 14:15] LABS: ABSOLUTE RETICS # 0.071 10^6/uL (0.028-0.122); MEAN CORPUSCULAR HEMOGLOBIN 28.9 pg (27.0-33.4); MEAN CORPUSCULAR HGB CONC 33.7 g/dL (32.0-36.0); MEAN CORPUSCULAR VOLUME 86 fl (80-97); PLATELET COUNT 441 10^3/uL (150-450); RED CELL DISTRIBUTION WIDTH 17.8 % (11.5-14.0); RETICULOCYTE COUNT (AUTO) 3.35 % (0.66-2.85); WHITE BLOOD COUNT 15.4 10^3/uL (4.0-10.5)
[2018-05-17 14:19] LABS: HEMOGLOBIN 6.1 g/dL (13.5-17.0)
[2018-05-17 14:40] LABS: ABSOLUTE LYMPHOCYTES# (MANUAL) 2.6 10^3/uL (0.5-4.7); ABSOLUTE MONOCYTES # (MANUAL) 0.8 10^3/uL (0.1-1.4); BASOPHILS % (MANUAL) 0 % (0-2); EOSINOPHILS % (MANUAL) 0 % (0-6); LYMPHOCYTES % (MANUAL) 17 % (13-45); MONOCYTES % (MANUAL) 5 % (3-13); SEGMENTED NEUTROPHILS % (MAN) 78 % (42-78); TOTAL CELLS COUNTED 100
[2018-05-17] MEDS ORDERED: NORMAL SALINE 250 ML IV PRN (14:40)
[2018-05-17 14:42] LABS: ANISOCYTOSIS 1+; OVALOCYTES 1+; PLATELET COMMENT ADEQUATE; POIKILOCYTOSIS 1+; SICKLE RED CELLS 1+; TARGET CELLS 1+
[2018-05-17 15:02] LABS: ANION GAP 10 (5-19); BLOOD UREA NITROGEN 15 mg/dL (7-20); CALCIUM 9.2 mg/dL (8.4-10.2); CARBON DIOXIDE 28 mmol/L (22-30); CHLORIDE 106 mmol/L (98-107); GLUCOSE 101 mg/dL (75-110); POTASSIUM 4.5 mmol/L (3.6-5.0); SODIUM 144.1 mmol/L (137-145)
--- NOTE | 2018-05-17 15:02 | ER Document Report ---
ED General - General Chief Complaint: Abnormal Lab Results Stated Complaint: ABNORMAL LABS Time Seen by Provider: 05/17/18 13:04 Notes: Patient was sent here by his developer programmer analyst to receive blood transfusions. Patient has sickle cell disease and had blood drawn today for routine evaluation and his hemoglobin was reported as 6.1. He was sent for transfusions. Patient denies having any symptoms other than generalized he is feeling weak. No nausea or vomiting or diarrhea. No chest pains. Not short of breath. No fevers. 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 He was in a coma for a couple of weeks when this happened. He now requires a walker to ambulate. He has had left hip replacement and a metal bar in the right hip to stabilize it. TRAVEL OUTSIDE OF THE [place] IN LAST 30 DAYS: No - Related Data Allergies/Adverse Reactions: No Known Drug Allergies Allergy (Unknown, Verified 05/17/18 12:29) Past Medical History - Social History Smoking Status: Never Smoker Family History: Reviewed & Not Pertinent, Other Patient has suicidal ideation: No Patient has homicidal ideation: No - Past Medical History Cardiac Medical History: Reports: Hx Heart Murmur Pulmonary Medical History: Neurological Medical History: Reports: Hx Cerebrovascular Accident - ANEURYSM 2011, LEFT SIDED DEFICIT, Hx Seizures - ON MEDS GI Medical History: Reports: Hx Gastroesophageal Reflux Disease Musculoskeletal Medical History: Reports Hx Arthritis Psychiatric Medical History: Reports: Hx Anxiety, Hx Depression Traumatic Medical History: Reports: Hx Fractures - proximal femur Past Surgical History: Reports: Hx Cholecystectomy, Hx Oral Surgery - reconstruction, Hx Orthopedic Surgery - Patient underwent open reduction internal fixation of bilateral proximal fe, Other - Patient tracheostomy and PEG tube placement [facility] 3 years - Immunizations Immunizations up to date: Yes Hx Diphtheria, Pertussis, Tetanus Vaccination: Yes Hx Pneumococcal Vaccination: 08/05/12 Review of Systems - Review of Systems Notes: REVIEW OF SYSTEMS: CONSTITUTIONAL : Feels generalized weakness. Denies fever. When questioned by staff, patient says he is having severe generalized pain. EENT: Denies eye, ear, nose or mouth or throat pain or other symptoms. CARDIOVASCULAR: Denies chest pain. RESPIRATORY: Denies cough, chest congestion, or shortness of breath. GASTROINTESTINAL: Denies abdominal pain or nausea, vomiting, or diarrhea. GENITOURINARY: Denies difficulty or painful urinating, urinary frequency, blood in urine. MUSCULOSKELETAL: Denies back or neck pain. Denies joint pain or swelling. SKIN: Denies rash or skin lesions. NEUROLOGICAL: Denies LOC or altered mental status. Denies headache. ALL OTHER SYSTEMS REVIEWED AND NEGATIVE. Physical Exam - Vital signs Vitals: Temp Pulse Resp BP Pulse Ox 98.1 F 95 16 106/67 100 05/17/18 12:33 05/17/18 12:33 05/17/18 12:33 05/17/18 12:33 05/17/18 12:33 Interpretation: Normal - Notes Notes: PHYSICAL EXAMINATION: GENERAL: Pale. Does not appear to be in any acute distress. HEAD: Atraumatic, normocephalic. EYES: Pupils equal round and reactive to light, extraocular movements intact. ENT: oropharynx clear without exudates. Moist mucous membranes. NECK: Normal range of motion, supple. Scar from previous tracheostomy. LUNGS: Breath sounds clear and equal bilaterally. HEART: Regular rate and rhythm without murmurs. ABDOMEN: Scar from previous gastrostomy. Soft, nontender. No guarding or rebound. No masses. BACK: No tenderness throughout entire back. EXTREMITIES: No swelling or pain noted.. NEUROLOGICAL: Residual neurologic deficits secondary to ruptured cerebral aneurysm with intracranial hemorrhage and coma for nearly 2 weeks. Can walk with the use of a walker. SKIN: Warm, dry, no rashes. Course - Vital Signs Vital signs: Temp Pulse Resp BP Pulse Ox 98.1 F 95 16 106/67 100 05/17/18 12:33 05/17/18 12:33 05/17/18 12:33 05/17/18 12:33 05/17/18 12:33 - Laboratory Result Diagrams: 05/17/18 13:42 05/17/18 14:14 Laboratory results interpreted by me: 05/17/18 05/17/18 13:42 14:14 WBC 15.4 H RBC 2.10 L Hgb 6.1 L Hct 18.0 L RDW 17.8 H Abs Neuts (Manual) 12.0 H Retic Count (auto) 3.35 H Crossmatch See Detail Discharge - Discharge Clinical Impression: Anemia, Sickle cell disease Disposition: ADMITTED OBSERVATION Admitting Provider: [facility] Unit Admitted: Medical Floor Referrals: RUMA RUTH MD [Primary Care Provider] - Follow up as needed
[2018-05-17] MEDS ORDERED: HYDROMORPHONE HCL INJ/PF 2 MG/ML AMPULE IV ONE (15:09)
[2018-05-17] MEDS: OXYCODONE-ACETAMINOPHEN 5-325 MG TABLET PO PRN (20:47)
[2018-05-17] MEDS ORDERED: MIRTAZAPINE 15 MG TABLET PO SCH (22:00)
[2018-05-17] MEDS ORDERED: (PENDING PHARMACY ID) (Megestrol Acetate [Megestrol Acetate] 40 MG) PO SCH (22:00)
[2018-05-17] MEDS: MISOPROSTOL 0.2 MG TABLET PO SCH (22:23)
[2018-05-17] MEDS: LEVETIRACETAM 500 MG TABLET PO SCH (22:24)
[2018-05-17] MEDS: MEGESTROL ACETATE 20 MG TABLET PO SCH (22:24)
[2018-05-17] MEDS: DICLOFENAC SODIUM 50 MG TABLET.DR PO SCH (22:24)
[2018-05-18 05:49] LABS: ABSOLUTE BASOPHILS # (AUTO) 0.1 10^3/uL (0.0-0.2); ABSOLUTE EOSINOPHILS # (AUTO) 0.6 10^3/uL (0.0-0.6); ABSOLUTE LYMPHOCYTES (AUTO) 2.2 10^3/uL (0.5-4.7); ABSOLUTE MONOCYTES (AUTO) 1.1 10^3/uL (0.1-1.4); ABSOLUTE NEUT (AUTO) 7.5 10^3/uL (1.7-8.2); BASOPHILS % (AUTO) 0.6 % (0-2); EOSINOPHILS % (AUTO) 5.1 % (0-6); HEMATOCRIT 20.7 % (37.9-51.0); LYMPHOCYTES % (AUTO) 19.2 % (13-45); MEAN CORPUSCULAR HEMOGLOBIN 30.1 pg (27.0-33.4); MEAN CORPUSCULAR VOLUME 86 fl (80-97); MONOCYTES % (AUTO) 9.3 % (3-13); PLATELET COUNT 357 10^3/uL (150-450); RED BLOOD COUNT 2.41 10^6/uL (4.35-5.55); RED CELL DISTRIBUTION WIDTH 16.9 % (11.5-14.0); SEGMENTED NEUTROPHILS % (AUTO) 65.8 % (42-78); TOTAL CELLS COUNTED % (AUTO) 100 %; WHITE BLOOD COUNT 11.5 10^3/uL (4.0-10.5)
[2018-05-18 06:02] LABS: HEMOGLOBIN 7.2 g/dL (13.5-17.0)
[2018-05-18] MEDS ORDERED: HYDROXYUREA 500 MG CAPSULE PO SCH (10:00)
[2018-05-18] MEDS ORDERED: FOLIC ACID 1 MG TABLET PO SCH (10:00)
[2018-05-18] MEDS: DICLOFENAC SODIUM 50 MG TABLET.DR PO SCH (10:22)
[2018-05-18] MEDS: LEVETIRACETAM 500 MG TABLET PO SCH (10:22)
[2018-05-18] MEDS: MISOPROSTOL 0.2 MG TABLET PO SCH (10:23)
[2018-05-18] MEDS: MEGESTROL ACETATE 20 MG TABLET PO SCH (10:23)
[2018-05-18] MEDS: OXYCODONE-ACETAMINOPHEN 5-325 MG TABLET PO PRN ×2 (10:27→17:11)
[2018-05-18 12:46] VITALS: BP 114/69
--- NOTE | 2018-05-18 15:03 | PDOC H&P ---
History of Present Illness Admission Date/PCP: 05/17/18 15:36 RUMA RUTH MD History of Present Illness: EMIL BARNES is a 28 year old male, patient is well-known to me he has sickle cell disease with chronic sickle cell anemia, he went for follow-up evaluation with his director product development, he was found to have hemoglobin of 6.1, he was referred to the ER for blood transfusion. The emergency room he was evaluated the hemogram confirm a low hemoglobin of 6.1, he has no complaints other than generalized fatigue Past Medical History Cardiac Medical History: Reports: Heart Murmur Pulmonary Medical History: Neurological Medical History: Reports: Seizures - ON MEDS GI Medical History: Reports: Gastroesophageal Reflux Disease Musculoskeltal Medical History: Reports: Arthritis Psychiatric Medical History: Reports: Depression Hematology: Reports: Anemia, Sickle Cell Disease, Bleeding Tendencies Past Surgical History Past Surgical History: Reports: Cholecystectomy, Orthopedic Surgery - Patient underwent open reduction internal fixation of bilateral proximal fe, Other - Patient tracheostomy and PEG tube placement [facility] 3 years Social History Smoking Status: Never Smoker Frequency of Alcohol Use: None Hx Recreational Drug Use: No Drugs: None Hx Prescription Drug Abuse: No Family History Family History: Reviewed & Not Pertinent, Other Parental Family History Reviewed: Yes Children Family History Reviewed: Yes Sibling(s) Family History Reviewed.: Yes Medication/Allergy Home Medications: Diclofenac Sodium [Voltaren 50 mg Tablet.dr] 50 mg PO Q12 01/05/18 Folic Acid [Folvite 1 mg Tablet] 1 mg PO DAILY 01/05/18 Hydroxyurea 500 mg PO DAILY 01/05/18 Levetiracetam 500 mg PO Q12 01/05/18 Megestrol Acetate 40 mg PO Q12 01/05/18 Misoprostol [Cytotec 0.2 mg Tablet] 200 mcg PO Q12 01/05/18 Tamsulosin HCl 0.4 mg PO QPM 01/05/18 Oxycodone HCl/Acetaminophen [Percocet 5-325 mg Tablet] 1 tab PO Q6HP PRN Mirtazapine 7.5 mg PO QHS 05/17/18 Allergies/Adverse Reactions: No Known Drug Allergies Allergy (Unknown, Verified 05/17/18 12:29) Review of Systems Constitutional: PRESENT: fatigue Eyes: ABSENT: visual disturbances Ears: ABSENT: hearing changes Cardiovascular: ABSENT: chest pain, dyspnea on exertion, edema, orthropnea, palpitations Respiratory: ABSENT: cough, hemoptysis Gastrointestinal: ABSENT: abdominal pain, constipation, diarrhea, hematemesis, hematochezia, nausea, vomiting Genitourinary: ABSENT: dysuria, hematuria Musculoskeletal: ABSENT: joint swelling Integumentary: ABSENT: rash, wounds Neurological: ABSENT: abnormal gait, abnormal speech, confusion, dizziness, focal weakness, syncope Psychiatric: ABSENT: anxiety, depression, homidical ideation, suicidal ideation Endocrine: ABSENT: cold intolerance, heat intolerance, menstrual abnormalities, polydipsia, polyuria Hematologic/Lymphatic: ABSENT: easy bleeding, easy bruising, lymphadenopathy Physical Exam Vital Signs: Temp Pulse Resp BP Pulse Ox 98.5 F 85 12 114/69 100 05/18/18 12:10 05/18/18 12:10 05/18/18 12:10 05/18/18 12:10 05/18/18 12:10 Intake & Output 05/17/18 05/18/18 05/19/18 06:59 06:59 06:59 Intake Total 925 100 Output Total 625 Balance 300 100 Weight 52.4 kg Head exam: PRESENT: atraumatic, normocephalic Eye exam: PRESENT: conjunctiva pale Mouth exam: PRESENT: moist, tongue midline Neck exam: PRESENT: full ROM Respiratory exam: PRESENT: clear to auscultation ishan Cardiovascular exam: PRESENT: RRR, +S1, +S2, systolic murmur Pulses: PRESENT: normal dorsalis pedis pul, +2 pedal pulses bilateral Vascular exam: PRESENT: normal capillary refill GI/Abdominal exam: PRESENT: normal bowel sounds, soft Rectal exam: PRESENT: deferred Neurological exam: PRESENT: alert, awake, oriented to person, oriented to place , oriented to time, oriented to situation, CN II-XII grossly intact Psychiatric exam: PRESENT: appropriate affect, normal mood Skin exam: PRESENT: dry, intact, warm Results Laboratory Results: 05/18/18 05:27 05/18/18 05:27 WBC 11.5 H RBC 2.41 L Hgb 7.2 L Hct 20.7 L MCV 86 MCH 30.1 MCHC 35.0 RDW 16.9 H Plt Count 357 Seg Neutrophils % 65.8 Lymphocytes % 19.2 Monocytes % 9.3 Eosinophils % 5.1 Basophils % 0.6 Absolute Neutrophils 7.5 Absolute Lymphocytes 2.2 Absolute Monocytes 1.1 Absolute Eosinophils 0.6 Absolute Basophils 0.1 Assessment & Plan - Diagnosis (1) Sickle cell anemia Qualifiers: Sickle-cell associated disorders: without crisis Qualified Code(s): D57.1 - 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 Is this a current diagnosis for this admission?: Yes
[2018-05-18 16:00] LABS: ABSOLUTE BASOPHILS # (AUTO) 0.1 10^3/uL (0.0-0.2); ABSOLUTE EOSINOPHILS # (AUTO) 0.6 10^3/uL (0.0-0.6); ABSOLUTE MONOCYTES (AUTO) 1.1 10^3/uL (0.1-1.4); ABSOLUTE NEUT (AUTO) 7.1 10^3/uL (1.7-8.2); BASOPHILS % (AUTO) 0.5 % (0-2); EOSINOPHILS % (AUTO) 5.1 % (0-6); HEMATOCRIT 21.9 % (37.9-51.0); LYMPHOCYTES % (AUTO) 25.2 % (13-45); MEAN CORPUSCULAR HEMOGLOBIN 30.1 pg (27.0-33.4); MEAN CORPUSCULAR HGB CONC 34.8 g/dL (32.0-36.0); MEAN CORPUSCULAR VOLUME 87 fl (80-97); MONOCYTES % (AUTO) 9.5 % (3-13); PLATELET COUNT 370 10^3/uL (150-450); RED BLOOD COUNT 2.53 10^6/uL (4.35-5.55); SEGMENTED NEUTROPHILS % (AUTO) 59.7 % (42-78); TOTAL CELLS COUNTED % (AUTO) 100 %; WHITE BLOOD COUNT 11.9 10^3/uL (4.0-10.5)
[2018-05-18 16:05] LABS: HEMOGLOBIN 7.6 g/dL (13.5-17.0)
--- NOTE | 2018-05-18 17:10 | PDOC TRANSFER SUMMARY ---
General - Admit/Disc Date/PCP Admission Date/Primary Care Provider: 05/17/18 15:36 RUMA RUTH MD Discharge Date: 05/18/18 - Discharge Diagnosis (1) Sickle cell anemia Is this a current diagnosis for this admission?: Yes - Additional Information Home Medications: Diclofenac Sodium [Voltaren 50 mg Tablet.dr] 50 mg PO Q12 01/05/18 Folic Acid [Folvite 1 mg Tablet] 1 mg PO DAILY 01/05/18 Hydroxyurea 500 mg PO DAILY 01/05/18 Levetiracetam 500 mg PO Q12 01/05/18 Megestrol Acetate 40 mg PO Q12 01/05/18 Misoprostol [Cytotec 0.2 mg Tablet] 200 mcg PO Q12 01/05/18 Tamsulosin HCl 0.4 mg PO QPM 01/05/18 Oxycodone HCl/Acetaminophen [Percocet 5-325 mg Tablet] 1 tab PO Q6HP PRN Mirtazapine 7.5 mg PO QHS 05/17/18 History of Present Illness Admission Date/PCP: 05/17/18 15:36 RUMA RUTH MD History of Present Illness: EMIL BRANES is a 28 year old male, patient is well-known to me he has sickle cell disease with chronic sickle cell anemia, he went for follow-up evaluation with his bank compliance officer, he was found to have hemoglobin of 6.1, he was referred to the ER for blood transfusion. The emergency room he was evaluated the hemogram confirm a low hemoglobin of 6.1, he has no complaints other than generalized fatigue Hospital Course Hospital Course: Patient was admitted for the management of severe anemia associated with sickle cell disease he was transfused with 2 units of packed red blood cells without complications Physical Exam Vital Signs: Temp Pulse Resp BP Pulse Ox 98.5 F 85 12 114/69 100 05/18/18 12:10 05/18/18 12:10 05/18/18 12:10 05/18/18 12:10 05/18/18 12:10 Intake & Output 05/17/18 05/18/18 05/19/18 06:59 06:59 06:59 Intake Total 925 100 Output Total 625 Balance 300 100 Weight 52.4 kg General appearance: PRESENT: no acute distress Head exam: PRESENT: atraumatic, normocephalic Eye exam: PRESENT: PERRLA Ear exam: PRESENT: normal external ear exam Mouth exam: PRESENT: moist, tongue midline Respiratory exam: PRESENT: clear to auscultation ishan Cardiovascular exam: PRESENT: RRR, +S1 Pulses: PRESENT: normal dorsalis pedis pul Vascular exam: PRESENT: normal capillary refill GI/Abdominal exam: PRESENT: normal bowel sounds, soft Rectal exam: PRESENT: deferred Extremities exam: PRESENT: full ROM Neurological exam: PRESENT: alert Psychiatric exam: PRESENT: appropriate affect, normal mood Skin exam: PRESENT: dry, intact, warm Results Laboratory Results: 05/18/18 15:22 05/18/18 05/18/18 05:27 15:22 WBC 11.5 H 11.9 H RBC 2.41 L 2.53 L Hgb 7.2 L 7.6 L Hct 20.7 L 21.9 L MCV 86 87 MCH 30.1 30.1 MCHC 35.0 34.8 RDW 16.9 H 17.0 H Plt Count 357 370 Seg Neutrophils % 65.8 59.7 Lymphocytes % 19.2 25.2 Monocytes % 9.3 9.5 Eosinophils % 5.1 5.1 Basophils % 0.6 0.5 Absolute Neutrophils 7.5 7.1 Absolute Lymphocytes 2.2 3.0 Absolute Monocytes 1.1 1.1 Absolute Eosinophils 0.6 0.6 Absolute Basophils 0.1 0.1 Qualifiers - * PATIENT BEING DISCHARGED WITH ANY OF THE FOLLOWING DIAGNOSIS: No
[2018-05-18] MEDS ORDERED: TAMSULOSIN HCL 0.4 MG CAP.SR.24H PO SCH (18:00)
== END 2018-05-18 18:15 | DRG 812 ==
LOC: ER 12:25 → EH 15:36 → OBSVTOIN 15:36 → 3W 17:42
PROVIDERS: ADMIT Internal Medicine; ATTEND Internal Medicine
PROC: 30233N1 Transfusion of Nonautologous Red Blood Cells into Peripheral Vein, Percutaneous Approach (ICD-10-PCS; principal; 2018-05-17)
DX: D57.1 Sickle-cell disease without crisis (principal); I69.354 Hemiplegia and hemiparesis following cerebral infarction affecting left non-dominant side; G40.909 Epilepsy, unspecified, not intractable, without status epilepticus; K21.9 Gastro-esophageal reflux disease without esophagitis; Z96.642 Presence of left artificial hip joint; Z93.0 Tracheostomy status; Z93.1 Gastrostomy status
CPT/HCPCS: 36415; 36430; 80048; 85025; 85045; 86850; 86900; 86901; 86902; 86920; 96374; 99284; J1170; J3490; J7050; P9016

== ENCOUNTER 2018-06-25 16:39 | Inpatient (IN) | payer MEDICARE, MEDICAID ==
--- NOTE | 2018-06-25 17:14 | ER Document Report ---
ED General - General Chief Complaint: Leg Pain Stated Complaint: ABDOMINAL PAIN Time Seen by Provider: 06/25/18 17:02 Notes: 28-year-old male to the emergency department for evaluation of not out of the right leg. Patient has history of sickle cell disease. Multiple recent infections involving bilateral lower extremities due to infected hardware after bilateral hip fractures. Patient also has complications from previous aneurysm at the age of 23. Was recently admitted to the hospital for sepsis episode approximately 4 months ago. Has been followed by orthopedic surgery. Dr. Paul Marcos has operated on the patient as well as Dr. Karlos Carty. Patient recently has seen TRAVEL OUTSIDE OF THE [place] IN LAST 30 DAYS: No - Related Data Allergies/Adverse Reactions: No Known Drug Allergies Allergy (Unknown, Verified 06/25/18 16:56) Past Medical History - General Information source: Patient, Parent - Social History Smoking Status: Never Smoker Frequency of alcohol use: None Lives with: Parents Family History: Reviewed & Not Pertinent, Other Patient has suicidal ideation: No Patient has homicidal ideation: No - Past Medical History Cardiac Medical History: Reports: Hx Heart Murmur Denies: Hx Atrial Fibrillation, Hx Congestive Heart Failure, Hx Coronary Artery Disease, Hx Heart Attack, Hx Hypertension, Hx Peripheral Vascular Disease , Hx Pulmonary Embolism Pulmonary Medical History: Denies: Hx Asthma, Hx Bronchitis, Hx COPD, Hx Pneumonia, Hx Tuberculosis Neurological Medical History: Reports: Hx Cerebrovascular Accident - ANEURYSM 2010, LEFT SIDED DEFICIT, Hx Seizures - ON MEDS Endocrine Medical History: Denies: Hx Graves' Disease, Hx Hyperthyroidism, Hx Hypothyroidism Renal/ Medical History: Denies: Hx Peritoneal Dialysis Malignancy Medical History: Denies Hx Leukemia, Denies Hx Lung Cancer GI Medical History: Reports: Hx Gastroesophageal Reflux Disease. Denies: Hx Pancreatitis, Hx Ulcer Musculoskeletal Medical History: Reports Hx Arthritis, Denies Hx Fibromyalgia, Denies Hx Multiple Sclerosis, Denies Hx Muscular Dystrophy Psychiatric Medical History: Reports: Hx Anxiety, Hx Depression Denies: Hx Bipolar Disorder, Hx Dementia, Hx Schizophrenia Traumatic Medical History: Reports: Hx Fractures - proximal femur Infectious Medical History: Denies: Hx HIV Past Surgical History: Reports: Hx Cholecystectomy, Hx Oral Surgery - reconstruction, Hx Orthopedic Surgery - Patient underwent open reduction internal fixation of bilateral proximal fe, Other - Patient tracheostomy and PEG tube placement [facility] 3 years. Denies: Hx Appendectomy, Hx Bowel Surgery, Hx Coronary Artery Bypass Graft, Hx Gastric Bypass Surgery, Hx Herniorrhaphy, Hx Pacemaker, Hx Tonsillectomy - Immunizations Immunizations up to date: Yes Hx Diphtheria, Pertussis, Tetanus Vaccination: Yes Hx Pneumococcal Vaccination: 08/05/12 Review of Systems - Review of Systems Notes: Constitutional: Complains of generalized weakness, fatigue, chills s EENT: denies: Eye discharge, Blurred vision, Tearing, Double vision, Nose congestion, Nose discharge, Throat swelling, Mouth pain Cardiovascular: denies: Palpitations, Orthopnea, Dyspnea, Chest pain. Positive for tachycardia Respiratory: denies: Cough, Hurts to breathe, Wheezing, Shortness of breath Gastrointestinal: denies: Abdominal pain, Diarrhea, Nausea, Vomiting, Black stools, bright red blood in stool Genitourinary: denies: Burning, Dysuria, Discharge, Frequency, Flank pain, Hematuria Musculoskeletal: Complaining of body aches and joint pain all over mostly in the right leg with drainage and they are coming out of the right leg. Hematologic/Lymphatic: History of sickle cell anemia, history of sepsis with leukocytosis Neurological/Psychological: History of CVA with partial paralysis Skin: Open draining lesion on the right mid lateral leg draining pus Physical Exam - Vital signs Vitals: Temp Pulse Resp BP Pulse Ox 98.3 F 106 H 18 113/70 100 06/25/18 16:48 06/25/18 16:48 06/25/18 16:48 06/25/18 16:48 06/25/18 16:48 Interpretation: Tachycardic - General General appearance: Appears well, Alert In distress: Moderate - HEENT Head: Normocephalic, Atraumatic Eyes: Normal Pupils: PERRL Mucous membranes: Dry Neck: Normal - Respiratory Respiratory status: No respiratory distress Chest status: Nontender Breath sounds: Normal Chest palpation: Normal - Cardiovascular Rhythm: Tachycardia Heart sounds: Normal auscultation Murmur: No - Abdominal Inspection: Normal Distension: No distension Bowel sounds: Normal Tenderness: Nontender Organomegaly: No organomegaly - Back Back: Normal, Nontender - Extremities General upper extremity: Normal inspection, Nontender, Normal color, Normal ROM , Normal temperature General lower extremity: Other - The right lower extremity has a previous surgical incision site which has an area which is actively draining pus. Warm to the touch.. No: Zeyad's sign - Neurological Neuro grossly intact: Yes Cognition: Normal Kyung Coma Scale Eye Opening: Spontaneous Kyung Coma Scale Verbal: Oriented Garner Coma Scale Motor: Obeys Commands Garner Coma Scale Total: 15 - Psychological Associated symptoms: Normal affect, Normal mood - Skin Skin Temperature: Warm Skin Moisture: Dry Skin Color: Other - Small area of open skin and a previous surgical incision site actively draining a small amount of pus Course - Re-evaluation Re-evalutation: 06/25/18 18:35 Patient has an elevated WBC count of 19,000 with an active infection. More likely infected hardware in the right leg. Did consult with the orthopedic surgeon Dr. Paul Marcos. States that he knows this patient very well and was recently seen in his office. He is concerned about some infected hardware. Recommends admitting patient on IV antibiotics and he will consult with primary care provider/hospitalist for medical management and potentially take to the OR for removal of hardware infection persist. Currently family member are in the room and concerned about possible needing to be transferred to a higher level of care. I did express this to the orthopedic surgeon and he is confident and comfortable taking care of this patient at this time. Patient's previous wound cultures grew out methicillin sensitive Staphylococcus aureus pansensitive. I have also consulted with patient's operations tech covering physician Dr. Pereyra who was covering for Dr. Fam. He will admit the patient to IMCU at this time. Starting IV fluids, IV antibiotics. Patient is sick. I am attempting to contact patient's exhibit designer as well. I have typed and crossed the patient for potential blood transfusion if needed. 06/25/18 18:59 Femur X-Ray 06/25/18 17:05 IMPRESSION: Status post ORIF of the femur. No evidence of subcutaneous gas to suggest abscess ; however, this entity is not entirely excluded by radiography. Laboratory 06/25/18 06/25/18 06/25/18 17:40 17:40 17:40 WBC 19.1 H RBC 2.49 L Hgb 7.3 L Hct 22.2 L MCV 89 MCH 29.1 MCHC 32.8 RDW 17.7 H Plt Count 561 H Seg Neutrophils % 78.6 H Lymphocytes % 10.9 L Monocytes % 8.5 Eosinophils % 1.3 Basophils % 0.7 Absolute Neutrophils 15.0 H Absolute Lymphocytes 2.1 Absolute Monocytes 1.6 H Absolute Eosinophils 0.3 Absolute Basophils 0.1 Retic Count (manual) Retic Count (auto) Absolute Retic Sodium 142.8 Potassium 4.9 Chloride 105 Carbon Dioxide 26 Anion Gap 12 BUN 20 Creatinine 0.70 Est GFR ( Amer) > 60 Est GFR (Non-Af Amer) > 60 Glucose 98 Lactic Acid 1.5 Calcium 9.0 Total Bilirubin 0.6 Direct Bilirubin 0.4 Neonat Total Bilirubin Not Reportable Neonat Direct Bilirubin Not Reportable Neonat Indirect Bili Not Reportable AST 26 ALT 22 Alkaline Phosphatase 130 H C-Reactive Protein 69.9 H Total Protein 9.2 H Albumin 3.3 L 06/25/18 17:40 WBC RBC Hgb Hct MCV MCH MCHC RDW Plt Count Seg Neutrophils % Lymphocytes % Monocytes % Eosinophils % Basophils % Absolute Neutrophils Absolute Lymphocytes Absolute Monocytes Absolute Eosinophils Absolute Basophils Retic Count (manual) Cancelled Retic Count (auto) Cancelled Absolute Retic Cancelled Sodium Potassium Chloride Carbon Dioxide Anion Gap BUN Creatinine Est GFR ( Amer) Est GFR (Non-Af Amer) Glucose Lactic Acid Calcium Total Bilirubin Direct Bilirubin Neonat Total Bilirubin Neonat Direct Bilirubin Neonat Indirect Bili AST ALT Alkaline Phosphatase C-Reactive Protein Total Protein Albumin - Vital Signs Vital signs: Temp Pulse Resp BP Pulse Ox 98.3 F 106 H 15 112/68 98 06/25/18 16:48 06/25/18 16:48 06/25/18 18:18 06/25/18 18:18 06/25/18 18:18 - Laboratory Result Diagrams: 06/25/18 17:40 06/25/18 17:40 Laboratory results interpreted by me: 06/25/18 06/25/18 17:40 17:40 WBC 19.1 H RBC 2.49 L Hgb 7.3 L Hct 22.2 L RDW 17.7 H Plt Count 561 H Seg Neutrophils % 78.6 H Lymphocytes % 10.9 L Absolute Neutrophils 15.0 H Absolute Monocytes 1.6 H Alkaline Phosphatase 130 H C-Reactive Protein 69.9 H Total Protein 9.2 H Albumin 3.3 L Critical Care Note - Critical Care Note Total time excluding time spent on procedures (mins): 45 Comments: Leukocytosis, sirs, consultation with specialists Discharge - Discharge Clinical Impression: SIRS (systemic inflammatory response syndrome) Infected hardware in right lower extremity Qualifiers: Encounter type: initial encounter Qualified Code(s): T84.7XXA - Infection and inflammatory reaction due to other internal orthopedic prosthetic devices, implants and grafts, initial encounter Sickle cell anemia Qualifiers: Sickle-cell associated disorders: with unspecified crisis Qualified Code(s): D57.00 - Hb-SS disease with crisis, unspecified Condition: Fair Disposition: ADMITTED INPATIENT Admitting Provider: Pereyra Unit Admitted: [facility]
[2018-06-25 18:00] LABS: ABSOLUTE BASOPHILS # (AUTO) 0.1 10^3/uL (0.0-0.2); ABSOLUTE EOSINOPHILS # (AUTO) 0.3 10^3/uL (0.0-0.6); ABSOLUTE LYMPHOCYTES (AUTO) 2.1 10^3/uL (0.5-4.7); ABSOLUTE MONOCYTES (AUTO) 1.6 10^3/uL (0.1-1.4); BASOPHILS % (AUTO) 0.7 % (0-2); EOSINOPHILS % (AUTO) 1.3 % (0-6); HEMATOCRIT 22.2 % (37.9-51.0); LYMPHOCYTES % (AUTO) 10.9 % (13-45); MEAN CORPUSCULAR HEMOGLOBIN 29.1 pg (27.0-33.4); MEAN CORPUSCULAR HGB CONC 32.8 g/dL (32.0-36.0); MEAN CORPUSCULAR VOLUME 89 fl (80-97); MONOCYTES % (AUTO) 8.5 % (3-13); PLATELET COUNT 561 10^3/uL (150-450); RED BLOOD COUNT 2.49 10^6/uL (4.35-5.55); RED CELL DISTRIBUTION WIDTH 17.7 % (11.5-14.0); SEGMENTED NEUTROPHILS % (AUTO) 78.6 % (42-78); TOTAL CELLS COUNTED % (AUTO) 100 %; WHITE BLOOD COUNT 19.1 10^3/uL (4.0-10.5)
[2018-06-25] MEDS ORDERED: NORMAL SALINE 1000 ML 1,000 ML IV ONE (18:02)
[2018-06-25 18:03] LABS: HEMOGLOBIN 7.3 g/dL (13.5-17.0)
[2018-06-25] MEDS ORDERED: HYDROMORPHONE HCL INJ/PF 2 MG/ML AMPULE IV ONE (18:03)
[2018-06-25] MEDS ORDERED: KETOROLAC TROMETHAMINE INJ/PF 30 MG/1 ML SDV IV ONE (18:03)
[2018-06-25] MEDS ORDERED: CEFTRIAXONE 1 GM/D5W RTU 1 GM/50 ML RTUPB IV ONE (18:15)
[2018-06-25] MEDS ORDERED: CEFTRIAXONE INJ 1000 MG VIAL IV ONE (18:21)
[2018-06-25 18:26] LABS: ALANINE AMINOTRANSFERASE 22 U/L (21-72); ALBUMIN 3.3 g/dL (3.5-5.0); ALKALINE PHOSPHATASE 130 U/L (38-126); ANION GAP 12 (5-19); ASPARTATE AMINO TRANSFERASE 26 U/L (17-59); BILIRUBIN,DIRECT 0.4 mg/dL (0.0-0.4); BILIRUBIN,TOTAL 0.6 mg/dL (0.2-1.3); BLOOD UREA NITROGEN 20 mg/dL (7-20); C-REACTIVE PROTEIN 69.9 mg/L (<10.0); CARBON DIOXIDE 26 mmol/L (22-30); CHLORIDE 105 mmol/L (98-107); GLUCOSE 98 mg/dL (75-110); POTASSIUM 4.9 mmol/L (3.6-5.0); SODIUM 142.8 mmol/L (137-145); TOTAL PROTEIN 9.2 g/dL (6.3-8.2)
[2018-06-25] MEDS ORDERED: ERTAPENEM SODIUM INJ 1 GM VIAL IV ONE (18:28)
[2018-06-25] MEDS ORDERED: VANCOMYCIN HCL INJ 1000 MG VIAL IV ONE (18:29)
[2018-06-25] MEDS ORDERED: ONDANSETRON HCL INJ/PF 4 MG/2 ML SDV IV PRN (18:36)
[2018-06-25] MEDS ORDERED: ACETAMINOPHEN 325 MG TABLET PO PRN (18:36)
--- NOTE | 2018-06-25 18:58 | RADIOLOGY REPORT (SQ) ---
EXAM DESCRIPTION: FEMUR RIGHT COMPLETED DATE/TIME: 06/25/2018 6:38 pm REASON FOR STUDY: abscess COMPARISON: 03/06/2017 NUMBER OF VIEWS: Two views. TECHNIQUE: Two radiographic images acquired of the right femur to include hip and knee in at least o ne projection. LIMITATIONS: None. FINDINGS: MINERALIZATION: Osteopenia. BONES: Interval open reduction, internal fixation of the femur. There is no evidence of hardware fra cture. Severe collapse of the right femoral head with complete loss of femoroacetabular joint space. Heterotopic bone surrounds the injury site. . SOFT TISSUES: No obvious swelling or foreign body. OTHER: No other significant finding. IMPRESSION: Status post ORIF of the femur. No evidence of subcutaneous gas to suggest abscess ; how ever, this entity is not entirely excluded by radiography. TECHNICAL DOCUMENTATION: JOB ID: [id number] [employer]- All Rights Reserved Reading location - IP/workstation name: [email or web address]
[2018-06-25 19:11] LABS: ERYTHROCYTE SEDIMENTATION RATE > 120 mm/hr (0-15)
--- NOTE | 2018-06-25 19:26 | PDOC H&P ---
History of Present Illness Admission Date/PCP: 06/25/18 18:49 RUMA RUTH MD Patient complains of: Sepsis not feeling well History of Present Illness: EMIL ABRNES is a 28 year old male This is a 28-year-old male with a history of the sickle cell disease multiple hospital admissions several blood transfusion currently see a Dr. Jones for the sickle cell disease the patient of Dr. Ruth with currently dealing with the right femur fractures status post hardware placement by Dr. Marcos with ongoing infections recently seen by Dr. Marcos on the last Wednesday and patient's white count was elevated and the Dr. Marcos suggest continues to monitor Patient hemoglobin was 7.3 and suggest continues to monitor Patients noticed on the right femur on the incision site the drainage is coming in patients came to the emergency department by the patient's white count was 19 ,000 patient was little tachycardic and the most likely underlying sepsis I saw the patient's in the emergency department patient was alert awake oriented denied any chest pain denied any back pain patients feel like a chills but no fever noticed Very extensive discussions with the family and emergency departments and according to the family Dr. Marcos mostly suggest to remove the hardware and ER physician already discussed with Dr. Marcos and page Dr. Jones At this point we decided to admit the patient patient's last cultures so staph aureus but no methicillin-resistant sensitive to all organism but patient's currently draining the pus from the hardware side will cover with the broad- spectrum antibiotic until the cultures back Patients otherwise denied any sickle cell crisis Denied any abdominal pain no nausea no vomiting Past Medical History Cardiac Medical History: Reports: Heart Murmur Denies: Atrial Fibrillation, Congestive Heart Failure, Coronary Artery Disease, Myocardial Infarction, Hypertension, Peripheral Vascular Disease, Pulmonary Embolism Pulmonary Medical History: Denies: Asthma, Bronchitis, Chronic Obstructive Pulmonary Disease (COPD), Pneumonia, Tuberculosis Neurological Medical History: Reports: Seizures - ON MEDS Endocrine Medical History: Denies: Hyperthyroidism, Hypothyroidism Malignancy Medical History: Denies: Leukemia, Lung Cancer GI Medical History: Reports: Gastroesophageal Reflux Disease Musculoskeltal Medical History: Reports: Arthritis Denies: Fibromyalgia Psychiatric Medical History: Reports: Depression Denies: Bipolar Disorder, Dementia Hematology: Reports: Anemia, Sickle Cell Disease, Bleeding Tendencies Infectious Medical History: Denies: HIV Past Surgical History Past Surgical History: Reports: Cholecystectomy, Orthopedic Surgery - Patient underwent open reduction internal fixation of bilateral proximal fe, Other - Patient tracheostomy and PEG tube placement [facility] 3 years Denies: Appendectomy, Coronary Artery Bypass Graft, Gastric Bypass Surgery, Herniorrhaphy, Pacemaker, Tonsillectomy Social History Lives with: Parents Smoking Status: Never Smoker Frequency of Alcohol Use: None Hx Recreational Drug Use: No Drugs: None Hx Prescription Drug Abuse: No Family History Family History: Reviewed & Not Pertinent, Other Parental Family History Reviewed: Yes Children Family History Reviewed: Yes Sibling(s) Family History Reviewed.: Yes Medication/Allergy Home Medications: Diclofenac Sodium [Voltaren 50 mg Tablet.dr] 50 mg PO Q12 01/05/18 Folic Acid [Folvite 1 mg Tablet] 1 mg PO DAILY 01/05/18 Hydroxyurea 500 mg PO DAILY 01/05/18 Levetiracetam 500 mg PO Q12 01/05/18 Megestrol Acetate 40 mg PO Q12 01/05/18 Misoprostol [Cytotec 0.2 mg Tablet] 200 mcg PO Q12 01/05/18 Tamsulosin HCl 0.4 mg PO QPM 01/05/18 Oxycodone HCl/Acetaminophen [Percocet 5-325 mg Tablet] 1 tab PO Q6HP PRN Mirtazapine 7.5 mg PO QHS 05/17/18 Allergies/Adverse Reactions: No Known Drug Allergies Allergy (Unknown, Verified 06/25/18 16:56) Physical Exam Vital Signs: Temp Pulse Resp BP Pulse Ox 98.3 F 106 H 11 L 123/69 99 06/25/18 16:48 06/25/18 16:48 06/25/18 19:01 06/25/18 19:00 06/25/18 19:01 Intake & Output 06/24/18 06/25/18 06/26/18 06:59 06:59 06:59 Intake Total 899 Balance 899 General appearance: PRESENT: no acute distress, well-developed, well-nourished Head exam: PRESENT: atraumatic, normocephalic Eye exam: PRESENT: conjunctiva pink, EOMI, PERRLA. ABSENT: scleral icterus Ear exam: PRESENT: normal external ear exam Mouth exam: PRESENT: moist, tongue midline Neck exam: PRESENT: full ROM. ABSENT: carotid bruit, JVD, lymphadenopathy, thyromegaly Respiratory exam: PRESENT: clear to auscultation ishan Cardiovascular exam: PRESENT: RRR. ABSENT: diastolic murmur, rubs, systolic murmur Pulses: PRESENT: normal dorsalis pedis pul, +2 pedal pulses bilateral Vascular exam: PRESENT: normal capillary refill GI/Abdominal exam: PRESENT: normal bowel sounds, soft. ABSENT: distended, guarding, mass, organolmegaly, rebound, tenderness Rectal exam: PRESENT: deferred Extremities exam: ABSENT: pedal edema Additional comments: On the right upper thigh on the incision site draining pus is present but no redness Neurological exam: PRESENT: alert, awake, oriented to person, oriented to place , oriented to time, oriented to situation, CN II-XII grossly intact. ABSENT: motor sensory deficit Psychiatric exam: PRESENT: appropriate affect, normal mood. ABSENT: homicidal ideation, suicidal ideation Skin exam: PRESENT: dry, intact, warm. ABSENT: cyanosis, rash Results Impressions: Femur X-Ray 06/25/18 17:05 IMPRESSION: Status post ORIF of the femur. No evidence of subcutaneous gas to suggest abscess ; however, this entity is not entirely excluded by radiography. Assessment & Plan - Diagnosis (1) Infected hardware in right lower extremity Qualifiers: Encounter type: initial encounter Qualified Code(s): T84.7XXA - Infection and inflammatory reaction due to other internal orthopedic prosthetic devices, implants and grafts, initial encounter Is this a current diagnosis for this admission?: Yes Plan: Consult the Dr. Marcos start the patient on a broad-spectrum antibiotic until the cultures back (2) SIRS (systemic inflammatory response syndrome) Is this a current diagnosis for this admission?: Yes Plan: Since we have already cultures draw continuous antibiotic (3) Sickle cell anemia Qualifiers: Sickle-cell associated disorders: with unspecified crisis Qualified Code(s) : D57.00 - Hb-SS disease with crisis, unspecified; D57.0 - Hb-SS disease with crisis Is this a current diagnosis for this admission?: Yes Plan: Patients transfused 1 unit of blood in the setting of sepsis and potentially going for the surgery Already paged Dr. Jones for further evaluations (4) Anemia Is this a current diagnosis for this admission?: Yes (5) History of seizure disorder Is this a current diagnosis for this admission?: Yes Plan: continue current medications (6) Leukocytosis (leucocytosis) Qualifiers: Qualified Code(s): D72.829 - Elevated white blood cell count, unspecified Is this a current diagnosis for this admission?: Yes Plan: Due to the sepsis from the most likely a right femur consistent with the hardware - Time Time Spent: 30 to 50 Minutes Medications reviewed and adjusted accordingly: Yes Anticipated discharge: SNF Within: Other - Inpatient Certification Medical Necessity: Need Close Monitoring Due to Risk of Patient Decompensation, Need For IV Fluids, Need for IV Antibiotics Post Hospital Care: D/C Regulatory Lead Documentation - Plan Summary Plan Summary: see md order Very extensive discussions with the patient's family in the room
[2018-06-25] MEDS ORDERED: VANCOMYCIN HCL INJ 1000 MG VIAL IV PRN (19:30)
[2018-06-25] MEDS ORDERED: VANCOMYCIN HCL 0 MG in DEXTROSE 5%-WATER 250 ML IV NR (19:30)
[2018-06-25] MEDS: OXYCODONE-ACETAMINOPHEN 5-325 MG TABLET PO PRN ×2 (19:59→23:32)
[2018-06-25] MEDS: NORMAL SALINE 1000 ML 1,000 ML IV PRN (20:04)
[2018-06-25] MEDS: VANCOMYCIN HCL 1,250 MG in DEXTROSE 5%-WATER 250 ML IV SCH (20:09)
[2018-06-25 20:53] LABS: ABSOLUTE RETICS # 0.072 10^6/uL (0.028-0.122); RETICULOCYTE COUNT (AUTO) 3.29 % (0.66-2.85)
[2018-06-25] MEDS ORDERED: NORMAL SALINE 250 ML IV PRN (21:33)
[2018-06-25] MEDS: LEVETIRACETAM 500 MG TABLET PO SCH (23:22)
[2018-06-25] MEDS: FAMOTIDINE INJ/PF 20 MG/2 ML SDV IV SCH (23:22)
[2018-06-26] MEDS ORDERED: VANCOMYCIN HCL INJ 500 MG VIAL ONE (02:24)
[2018-06-26] MEDS: OXYCODONE-ACETAMINOPHEN 5-325 MG TABLET PO PRN ×5 (03:42→22:58)
[2018-06-26] MEDS: VANCOMYCIN HCL 1,250 MG in DEXTROSE 5%-WATER 250 ML IV SCH (03:42)
[2018-06-26] MEDS: VANCOMYCIN HCL INJ 1000 MG VIAL ONE (04:12)
[2018-06-26 05:56] LABS: ABSOLUTE BASOPHILS # (AUTO) 0.1 10^3/uL (0.0-0.2); ABSOLUTE EOSINOPHILS # (AUTO) 0.2 10^3/uL (0.0-0.6); ABSOLUTE LYMPHOCYTES (AUTO) 1.7 10^3/uL (0.5-4.7); ABSOLUTE MONOCYTES (AUTO) 1.4 10^3/uL (0.1-1.4); ABSOLUTE NEUT (AUTO) 11.3 10^3/uL (1.7-8.2); BASOPHILS % (AUTO) 0.5 % (0-2); EOSINOPHILS % (AUTO) 1.4 % (0-6); HEMATOCRIT 24.1 % (37.9-51.0); HEMOGLOBIN 8.2 g/dL (13.5-17.0); LYMPHOCYTES % (AUTO) 11.3 % (13-45); MEAN CORPUSCULAR HEMOGLOBIN 30.4 pg (27.0-33.4); MEAN CORPUSCULAR HGB CONC 34.2 g/dL (32.0-36.0); MEAN CORPUSCULAR VOLUME 89 fl (80-97); MONOCYTES % (AUTO) 9.7 % (3-13); PLATELET COUNT 395 10^3/uL (150-450); RED BLOOD COUNT 2.71 10^6/uL (4.35-5.55); RED CELL DISTRIBUTION WIDTH 16.4 % (11.5-14.0); SEGMENTED NEUTROPHILS % (AUTO) 77.1 % (42-78); TOTAL CELLS COUNTED % (AUTO) 100 %; WHITE BLOOD COUNT 14.6 10^3/uL (4.0-10.5)
[2018-06-26 06:26] LABS: ANION GAP 12 (5-19); BLOOD UREA NITROGEN 15 mg/dL (7-20); CALCIUM 8.8 mg/dL (8.4-10.2); CARBON DIOXIDE 22 mmol/L (22-30); CHLORIDE 111 mmol/L (98-107); GLUCOSE 88 mg/dL (75-110); POTASSIUM 4.8 mmol/L (3.6-5.0)
--- NOTE | 2018-06-26 06:40 | PDOC CONSULTATION ---
Consultation Consult Date: 06/26/18 Consult reason:: Right thigh abscess History of Present Illness Admission Date/PCP: 06/25/18 18:49 RUMA RUTH MD History of Present Illness: EMIL BARNES is a 28 year old male The patient is a 28-year-old black male with sickle cell disease well known to me from multiple previous surgical procedures. He was last seen in my office this past week with an elevated white count but no other symptoms. At that point x-rays demonstrated failure of fixation of the proximal aspect of the hardware. He now presents emergency room with drainage from the right thigh. Past Medical History Cardiac Medical History: Reports: Heart Murmur Denies: Atrial Fibrillation, Congestive Heart Failure, Coronary Artery Disease, Myocardial Infarction, Hypertension, Peripheral Vascular Disease, Pulmonary Embolism Pulmonary Medical History: Denies: Asthma, Bronchitis, Chronic Obstructive Pulmonary Disease (COPD), Pneumonia, Tuberculosis Neurological Medical History: Reports: Seizures - ON MEDS Endocrine Medical History: Denies: Hyperthyroidism, Hypothyroidism Malignancy Medical History: Denies: Leukemia, Lung Cancer GI Medical History: Reports: Gastroesophageal Reflux Disease Musculoskeltal Medical History: Reports: Arthritis Denies: Fibromyalgia Psychiatric Medical History: Reports: Depression Denies: Bipolar Disorder, Dementia Hematology: Reports: Anemia, Sickle Cell Disease, Bleeding Tendencies Infectious Medical History: Denies: HIV Past Surgical History Past Surgical History: Reports: Cholecystectomy, Orthopedic Surgery - Patient underwent open reduction internal fixation of bilateral proximal fe Denies: Appendectomy, Coronary Artery Bypass Graft, Gastric Bypass Surgery, Herniorrhaphy, Pacemaker, Tonsillectomy Social History Information Source: Patient, Legal Guardian, Office, [facility] Records Lives with: Retirement Smoking Status: Never Smoker Frequency of Alcohol Use: None Hx Recreational Drug Use: No Drugs: None Hx Prescription Drug Abuse: No Family History Family History: Reviewed & Not Pertinent, Other Parental Family History Reviewed: No Children Family History Reviewed: No Sibling(s) Family History Reviewed.: No Medication/Allergy Home Medications: Diclofenac Sodium [Voltaren 50 mg Tablet.] 50 mg PO Q12 01/05/18 Folic Acid [Folvite 1 mg Tablet] 1 mg PO DAILY 01/05/18 Hydroxyurea 500 mg PO DAILY 01/05/18 Levetiracetam 500 mg PO Q12 01/05/18 Misoprostol [Cytotec 0.2 mg Tablet] 200 mcg PO Q12 01/05/18 Tamsulosin HCl 0.4 mg PO QPM 01/05/18 Oxycodone HCl/Acetaminophen [Percocet 5-325 mg Tablet] 1 tab PO Q6HP PRN Mirtazapine 7.5 mg PO QHS 05/17/18 Allergies/Adverse Reactions: No Known Drug Allergies Allergy (Unknown, Verified 06/25/18 16:56) Review of Systems ROS unobtainable: Due to mental status Physical Exam Vital Signs: Temp Pulse Resp BP Pulse Ox 37.1 C 84 16 99/56 L 100 06/26/18 03:20 06/26/18 03:20 06/26/18 03:20 06/26/18 03:20 06/26/18 03:20 Intake & Output 06/24/18 06/25/18 06/26/18 06:59 06:59 06:59 Intake Total 1350 Balance 1350 Weight 52.6 kg General appearance: PRESENT: mild distress Head exam: PRESENT: normocephalic Respiratory exam: PRESENT: unlabored Cardiovascular exam: PRESENT: RRR Pulses: PRESENT: +1 pedal pulses bilateral Vascular exam: PRESENT: normal capillary refill GI/Abdominal exam: PRESENT: soft Rectal exam: PRESENT: deferred Extremities exam: PRESENT: other - Drainage from right thigh Skin exam: PRESENT: dry, intact, warm. ABSENT: cyanosis, rash Results Laboratory Results: 06/26/18 04:59 06/26/18 04:59 06/25/18 06/25/18 06/26/18 19:51 19:51 04:59 WBC 14.6 H RBC 2.71 L Hgb 8.2 L Hct 24.1 L MCV 89 MCH 30.4 MCHC 34.2 RDW 16.4 H Plt Count 395 Seg Neutrophils % 77.1 Lymphocytes % 11.3 L Monocytes % 9.7 Eosinophils % 1.4 Basophils % 0.5 Absolute Neutrophils 11.3 H Absolute Lymphocytes 1.7 Absolute Monocytes 1.4 Absolute Eosinophils 0.2 Absolute Basophils 0.1 Retic Count (auto) 3.29 H Absolute Retic 0.072 Sodium Potassium Chloride Carbon Dioxide Anion Gap BUN Creatinine Est GFR ( Amer) Est GFR (Non-Af Amer) Glucose Lactic Acid 1.1 Calcium Magnesium 06/26/18 04:59 WBC RBC Hgb Hct MCV MCH MCHC RDW Plt Count Seg Neutrophils % Lymphocytes % Monocytes % Eosinophils % Basophils % Absolute Neutrophils Absolute Lymphocytes Absolute Monocytes Absolute Eosinophils Absolute Basophils Retic Count (auto) Absolute Retic Sodium 145.0 Potassium 4.8 Chloride 111 H Carbon Dioxide 22 Anion Gap 12 BUN 15 Creatinine 0.67 Est GFR ( Amer) > 60 Est GFR (Non-Af Amer) > 60 Glucose 88 Lactic Acid Calcium 8.8 Magnesium 1.9 Impressions: Femur X-Ray 06/25/18 17:05 IMPRESSION: Status post ORIF of the femur. No evidence of subcutaneous gas to suggest abscess ; however, this entity is not entirely excluded by radiography. Status: Imported from PACS Assessment & Plan - Plan Summary Plan Summary: 28-year-old black male with sickle cell disease and repetitive abscesses of the right thigh. The patient also has failure of internal fixation of the right proximal femur. At this point I think it would be in the patient's best interest to have an I&D of the thigh, or hardware removal from the right femur, and implantation of a cement spacer. I have not had the opportunity to talk to David, his caregiver and his uncle about this. I will do that during the course of today.
--- NOTE | 2018-06-26 07:47 | PDOC PROGRESS REPORT ---
Subjective Progress Note for:: 06/26/18 Subjective:: Patient is currently doing well Patient's denied any abdominal pain Denied any nausea no vomiting Reason For Visit: SEPSIS,SICKLE CELL ANEMIA Physical Exam Vital Signs: Temp Pulse Resp BP Pulse Ox 98.8 F 84 16 99/56 L 100 06/26/18 03:20 06/26/18 03:20 06/26/18 03:20 06/26/18 03:20 06/26/18 03:20 Intake & Output 06/24/18 06/25/18 06/26/18 06:59 06:59 06:59 Intake Total 1350 Balance 1350 Weight 52.6 kg General appearance: PRESENT: no acute distress, well-developed, well-nourished Head exam: PRESENT: atraumatic, normocephalic Eye exam: PRESENT: conjunctiva pink, EOMI, PERRLA. ABSENT: scleral icterus Ear exam: PRESENT: normal external ear exam Mouth exam: PRESENT: moist, tongue midline Neck exam: PRESENT: full ROM. ABSENT: carotid bruit, JVD, lymphadenopathy, thyromegaly Respiratory exam: PRESENT: clear to auscultation ishan Cardiovascular exam: PRESENT: RRR. ABSENT: diastolic murmur, rubs, systolic murmur Pulses: PRESENT: normal dorsalis pedis pul, +2 pedal pulses bilateral Vascular exam: PRESENT: normal capillary refill GI/Abdominal exam: PRESENT: normal bowel sounds, soft. ABSENT: distended, guarding, mass, organolmegaly, rebound, tenderness Rectal exam: PRESENT: deferred Extremities exam: ABSENT: pedal edema Neurological exam: PRESENT: alert, awake, oriented to person, oriented to place , oriented to time, oriented to situation, CN II-XII grossly intact. ABSENT: motor sensory deficit Psychiatric exam: PRESENT: appropriate affect, normal mood. ABSENT: homicidal ideation, suicidal ideation Skin exam: PRESENT: dry, intact, warm. ABSENT: cyanosis, rash Results Laboratory Results: 06/26/18 04:59 06/26/18 04:59 06/25/18 06/25/18 06/26/18 19:51 19:51 04:59 WBC 14.6 H RBC 2.71 L Hgb 8.2 L Hct 24.1 L MCV 89 MCH 30.4 MCHC 34.2 RDW 16.4 H Plt Count 395 Seg Neutrophils % 77.1 Lymphocytes % 11.3 L Monocytes % 9.7 Eosinophils % 1.4 Basophils % 0.5 Absolute Neutrophils 11.3 H Absolute Lymphocytes 1.7 Absolute Monocytes 1.4 Absolute Eosinophils 0.2 Absolute Basophils 0.1 Retic Count (auto) 3.29 H Absolute Retic 0.072 Sodium Potassium Chloride Carbon Dioxide Anion Gap BUN Creatinine Est GFR ( Amer) Est GFR (Non-Af Amer) Glucose Lactic Acid 1.1 Calcium Magnesium 06/26/18 04:59 WBC RBC Hgb Hct MCV MCH MCHC RDW Plt Count Seg Neutrophils % Lymphocytes % Monocytes % Eosinophils % Basophils % Absolute Neutrophils Absolute Lymphocytes Absolute Monocytes Absolute Eosinophils Absolute Basophils Retic Count (auto) Absolute Retic Sodium 145.0 Potassium 4.8 Chloride 111 H Carbon Dioxide 22 Anion Gap 12 BUN 15 Creatinine 0.67 Est GFR ( Amer) > 60 Est GFR (Non-Af Amer) > 60 Glucose 88 Lactic Acid Calcium 8.8 Magnesium 1.9 Impressions: Femur X-Ray 06/25/18 17:05 IMPRESSION: Status post ORIF of the femur. No evidence of subcutaneous gas to suggest abscess ; however, this entity is not entirely excluded by radiography. Assessment & Plan - Diagnosis (1) Infected hardware in right lower extremity Qualifiers: Encounter type: initial encounter Qualified Code(s): T84.7XXA - Infection and inflammatory reaction due to other internal orthopedic prosthetic devices, implants and grafts, initial encounter Is this a current diagnosis for this admission?: Yes Plan: Consult the Dr. Marcos start the patient on a broad-spectrum antibiotic until the cultures back (2) SIRS (systemic inflammatory response syndrome) Is this a current diagnosis for this admission?: Yes Plan: Since we have already cultures draw continuous antibiotic (3) Sickle cell anemia Qualifiers: Sickle-cell associated disorders: with unspecified crisis Qualified Code(s) : D57.00 - Hb-SS disease with crisis, unspecified; D57.0 - Hb-SS disease with crisis Is this a current diagnosis for this admission?: Yes Plan: Patients transfused 1 unit of blood in the setting of sepsis and potentially going for the surgery Already paged Dr. Jones for further evaluations (4) Anemia Is this a current diagnosis for this admission?: Yes (5) History of seizure disorder Is this a current diagnosis for this admission?: Yes Plan: continue current medications (6) Leukocytosis (leucocytosis) Qualifiers: Is this a current diagnosis for this admission?: Yes Plan: Due to the sepsis from the most likely a right femur consistent with the hardware - Time Time Spent with patient: 15-24 minutes Medications reviewed and adjusted accordingly: Yes Anticipated discharge: Other Within: Other - Inpatient Certification Medical Necessity: Need Close Monitoring Due to Risk of Patient Decompensation Post Hospital Care: D/C 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
[2018-06-26] MEDS: FAMOTIDINE INJ/PF 20 MG/2 ML SDV IV SCH ×2 (09:14→22:02)
[2018-06-26] MEDS: DOCUSATE SODIUM 100 MG CAPSULE PO SCH ×2 (09:14→18:40)
[2018-06-26] MEDS: ENOXAPARIN SODIUM INJ 40 MG/0.4 ML DISP.SYRIN SUBCUT SCH ×2 (09:16→12:34)
[2018-06-26] MEDS: LEVETIRACETAM 500 MG TABLET PO SCH ×2 (12:21→22:03)
[2018-06-26] MEDS: VANCOMYCIN HCL 750 MG in DEXTROSE 5%-WATER 250 ML IV SCH ×2 (15:27→22:02)
[2018-06-26] MEDS ORDERED: ERTAPENEM SODIUM 1 GM in NORMAL SALINE 50 ML IV SCH (18:00)
[2018-06-26] MEDS: NORMAL SALINE 1000 ML 1,000 ML IV PRN (18:43)
[2018-06-27] MEDS: OXYCODONE-ACETAMINOPHEN 5-325 MG TABLET PO PRN ×3 (03:29→22:25)
[2018-06-27] MEDS: VANCOMYCIN HCL 750 MG in DEXTROSE 5%-WATER 250 ML IV SCH ×2 (05:52→20:20)
[2018-06-27 06:20] LABS: ABSOLUTE BASOPHILS # (AUTO) 0.1 10^3/uL (0.0-0.2); ABSOLUTE EOSINOPHILS # (AUTO) 0.3 10^3/uL (0.0-0.6); ABSOLUTE LYMPHOCYTES (AUTO) 2.3 10^3/uL (0.5-4.7); ABSOLUTE MONOCYTES (AUTO) 1.3 10^3/uL (0.1-1.4); ABSOLUTE NEUT (AUTO) 9.7 10^3/uL (1.7-8.2); BASOPHILS % (AUTO) 0.9 % (0-2); EOSINOPHILS % (AUTO) 1.8 % (0-6); HEMATOCRIT 23.3 % (37.9-51.0); LYMPHOCYTES % (AUTO) 16.9 % (13-45); MEAN CORPUSCULAR HEMOGLOBIN 29.8 pg (27.0-33.4); MEAN CORPUSCULAR HGB CONC 33.4 g/dL (32.0-36.0); MEAN CORPUSCULAR VOLUME 89 fl (80-97); MONOCYTES % (AUTO) 9.5 % (3-13); PLATELET COUNT 447 10^3/uL (150-450); RED BLOOD COUNT 2.61 10^6/uL (4.35-5.55); RED CELL DISTRIBUTION WIDTH 16.9 % (11.5-14.0); SEGMENTED NEUTROPHILS % (AUTO) 70.9 % (42-78); TOTAL CELLS COUNTED % (AUTO) 100 %; WHITE BLOOD COUNT 13.7 10^3/uL (4.0-10.5)
[2018-06-27 06:29] LABS: HEMOGLOBIN 7.8 g/dL (13.5-17.0)
[2018-06-27 06:40] LABS: ANION GAP 10 (5-19); BLOOD UREA NITROGEN 11 mg/dL (7-20); CARBON DIOXIDE 25 mmol/L (22-30); CHLORIDE 107 mmol/L (98-107); GLUCOSE 100 mg/dL (75-110); POTASSIUM 4.7 mmol/L (3.6-5.0); SODIUM 142.3 mmol/L (137-145)
[2018-06-27 06:50] LABS: VANCOMYCIN,TROUGH 24.7 ug/mL (5.0-20.0)
[2018-06-27] MEDS: RINGERS SOLUTION,LACTATED 1,000 ML IV PRN ×2 (08:03→15:19)
[2018-06-27] MEDS ORDERED: ONDANSETRON HCL INJ/PF 4 MG/2 ML SDV IV PRN ×2 (08:30→17:43)
[2018-06-27] MEDS: ENOXAPARIN SODIUM INJ 40 MG/0.4 ML DISP.SYRIN SUBCUT SCH (10:06)
[2018-06-27] MEDS: LEVETIRACETAM 500 MG TABLET PO SCH ×2 (10:33→22:28)
[2018-06-27] MEDS: FAMOTIDINE INJ/PF 20 MG/2 ML SDV IV SCH ×2 (10:33→22:25)
[2018-06-27] MEDS: DOCUSATE SODIUM 100 MG CAPSULE PO SCH ×2 (10:33→20:21)
[2018-06-27] MEDS ORDERED: FENTANYL CITRATE INJ/PF 100 MCG/2 ML AMPUL ONE (15:54)
[2018-06-27] MEDS ORDERED: MIDAZOLAM 2 MG/2 ML INJ ONE (15:55)
[2018-06-27] MEDS ORDERED: ACETAMINOPHEN 1,000 MG/100 ML RTUPB IV ONE (15:55)
[2018-06-27] MEDS ORDERED: EPHEDRINE SULFATE INJ 50 MG/1 ML AMPULE ONE (15:55)
[2018-06-27] MEDS ORDERED: HYDROMORPHONE HCL INJ/PF 2 MG/ML AMPULE ONE (15:55)
[2018-06-27] MEDS ORDERED: PROPOFOL INJ 200 MG/20 ML VIAL IV ONE (15:55)
[2018-06-27] MEDS ORDERED: LIDOCAINE 2% INJ-PF (20 MG/ML) 10 ML AMPUL ONE (16:02)
[2018-06-27] MEDS ORDERED: DEXAMETHASONE SOD PHOSPHATE INJ 4 MG/1 ML VIAL ONE (16:02)
[2018-06-27] MEDS ORDERED: ONDANSETRON HCL INJ/PF 4 MG/2 ML SDV ONE (16:02)
[2018-06-27] MEDS ORDERED: VANCOMYCIN HCL INJ 1000 MG VIAL ONE ×2 (16:39→18:06)
[2018-06-27] MEDS ORDERED: BACITRACIN INJ 50,000 UNIT VIAL ONE (17:11)
[2018-06-27] MEDS ORDERED: THROMBIN (BOVINE) TOPICAL 20000 UNIT VIAL ONE (17:39)
[2018-06-27] MEDS ORDERED: THROMBIN (BOVINE) 5000 UNIT EPITAXIS KIT ONE (17:39)
[2018-06-27] MEDS: VANCOMYCIN HCL INJ 1000 MG VIAL ONE (17:39)
[2018-06-27] MEDS ORDERED: PROMETHAZINE HCL INJ 25 MG/1 ML VIAL IV PRN ×2 (17:43)
[2018-06-27] MEDS ORDERED: FENTANYL CITRATE INJ/PF 100 MCG/2 ML AMPUL IV PRN ×3 (17:43)
[2018-06-27] MEDS ORDERED: MEPERIDINE HCL/PF INJ 25 MG/1 ML DISP.SYRIN IV PRN (17:43)
[2018-06-27] MEDS ORDERED: DIPHENHYDRAMINE HCL 50 MG/ML VIAL IV PRN (17:43)
[2018-06-27] MEDS ORDERED: MORPHINE SULFATE 10 MG/ML INJ IV PRN (17:43)
[2018-06-27] MEDS ORDERED: TRANEXAMIC ACID INJ/PF 1,000 MG/10 ML SDV IV ONE (17:48)
--- NOTE | 2018-06-27 19:00 | Operative Report ---
Operative Report DATE OF SURGERY: 06/27/18 PREOPERATIVE DIAGNOSIS: Right periprosthetic infection OPERATION: Hardware removal and implantation of cement spacer SURGEON: YON FRASER ANESTHESIA: GA TISSUE REMOVED OR ALTERED: Cultures 2 to microbiology. Implants to pathology ESTIMATED BLOOD LOSS: 150 PROCEDURE: With the patient in a left lateral decubitus position on the operating table the right lower extremities prepped and draped in sterile fashion. Through 2 incisions the existing gamma nail is removed uneventfully. Cultures are sent for culture and sensitivity. The head is unable to be dislocated and subsequently an in situ femoral neck cut is made in the femoral head is retrieved. Subsequently a polymethylmethacrylate spacer was made from a combination of a molded femoral head, most threaded Steinmann pin, and a column formation using the cement gun. This is impacted into position. The hip was subsequently reduced. His shireen here with pulse lavage and 3 L of normal saline 10 bacitracin. Wounds were then closed sterile dressings applied and the patient returned to PACU in satisfactory condition.
[2018-06-27 19:52] LABS: HEMATOCRIT 24.3 % (37.9-51.0); HEMOGLOBIN 8.3 g/dL (13.5-17.0); MEAN CORPUSCULAR HEMOGLOBIN 30.1 pg (27.0-33.4); MEAN CORPUSCULAR HGB CONC 34.1 g/dL (32.0-36.0); MEAN CORPUSCULAR VOLUME 88 fl (80-97); PLATELET COUNT 532 10^3/uL (150-450); RED BLOOD COUNT 2.76 10^6/uL (4.35-5.55); RED CELL DISTRIBUTION WIDTH 16.3 % (11.5-14.0); WHITE BLOOD COUNT 24.3 10^3/uL (4.0-10.5)
[2018-06-27] MEDS: ERTAPENEM SODIUM 1 GM in NORMAL SALINE 50 ML IV SCH (20:21)
--- NOTE | 2018-06-27 21:07 | PDOC PROGRESS REPORT ---
Subjective Progress Note for:: 06/27/18 Subjective:: Patient was admitted for the management of infected hardware, he had orthopedic surgery today for removal of infected hardware Reason For Visit: SEPSIS,SICKLE CELL ANEMIA Physical Exam Vital Signs: Temp Pulse Resp BP Pulse Ox 98.1 F 85 10 L 103/65 100 06/27/18 20:07 06/27/18 20:07 06/27/18 20:07 06/27/18 20:07 06/27/18 20:07 Intake & Output 06/26/18 06/27/18 06/28/18 06:59 06:59 06:59 Intake Total 2350 1005 5500 Output Total 4150 Balance 2350 1005 1350 Weight 52.6 kg 52 kg General appearance: PRESENT: no acute distress Eye exam: PRESENT: PERRLA Respiratory exam: PRESENT: clear to auscultation ishan Cardiovascular exam: PRESENT: +S1, +S2 GI/Abdominal exam: PRESENT: soft Neurological exam: PRESENT: alert Results Laboratory Results: 06/27/18 19:37 06/27/18 05:55 06/27/18 06/27/18 06/27/18 05:55 05:55 19:37 WBC 13.7 H 24.3 H RBC 2.61 L 2.76 L Hgb 7.8 L 8.3 L Hct 23.3 L 24.3 L MCV 89 88 MCH 29.8 30.1 MCHC 33.4 34.1 RDW 16.9 H 16.3 H Plt Count 447 532 H Seg Neutrophils % 70.9 Lymphocytes % 16.9 Monocytes % 9.5 Eosinophils % 1.8 Basophils % 0.9 Absolute Neutrophils 9.7 H Absolute Lymphocytes 2.3 Absolute Monocytes 1.3 Absolute Eosinophils 0.3 Absolute Basophils 0.1 Sodium 142.3 Potassium 4.7 Chloride 107 Carbon Dioxide 25 Anion Gap 10 BUN 11 Creatinine 0.61 Est GFR ( Amer) > 60 Est GFR (Non-Af Amer) > 60 Glucose 100 Calcium 9.0 Magnesium 1.8 Impressions: Femur X-Ray 06/25/18 17:05 IMPRESSION: Status post ORIF of the femur. No evidence of subcutaneous gas to suggest abscess ; however, this entity is not entirely excluded by radiography. Assessment & Plan - Diagnosis (1) Sepsis Is this a current diagnosis for this admission?: Yes (2) Infected hardware in right lower extremity Qualifiers: Encounter type: initial encounter Qualified Code(s): T84.7XXA - Infection and inflammatory reaction due to other internal orthopedic prosthetic devices, implants and grafts, initial encounter Is this a current diagnosis for this admission?: Yes Plan: Continue treatment
[2018-06-28] MEDS: OXYCODONE-ACETAMINOPHEN 5-325 MG TABLET PO PRN ×4 (04:17→19:56)
[2018-06-28 05:21] LABS: ABSOLUTE BASOPHILS # (AUTO) 0.1 10^3/uL (0.0-0.2); ABSOLUTE LYMPHOCYTES (AUTO) 1.6 10^3/uL (0.5-4.7); ABSOLUTE MONOCYTES (AUTO) 1.7 10^3/uL (0.1-1.4); ABSOLUTE NEUT (AUTO) 15.4 10^3/uL (1.7-8.2); BASOPHILS % (AUTO) 0.6 % (0-2); EOSINOPHILS % (AUTO) 0.1 % (0-6); LYMPHOCYTES % (AUTO) 8.7 % (13-45); MEAN CORPUSCULAR HGB CONC 32.7 g/dL (32.0-36.0); MEAN CORPUSCULAR VOLUME 89 fl (80-97); PLATELET COUNT 532 10^3/uL (150-450); RED BLOOD COUNT 2.59 10^6/uL (4.35-5.55); RED CELL DISTRIBUTION WIDTH 16.9 % (11.5-14.0); SEGMENTED NEUTROPHILS % (AUTO) 81.6 % (42-78); TOTAL CELLS COUNTED % (AUTO) 100 %; WHITE BLOOD COUNT 18.8 10^3/uL (4.0-10.5)
[2018-06-28] MEDS: RINGERS SOLUTION,LACTATED 1,000 ML IV PRN ×2 (05:27→15:00)
[2018-06-28] MEDS: VANCOMYCIN HCL 750 MG in DEXTROSE 5%-WATER 250 ML IV SCH ×2 (05:27→18:14)
[2018-06-28 05:31] LABS: HEMOGLOBIN 7.5 g/dL (13.5-17.0)
[2018-06-28 05:49] LABS: ANION GAP 8 (5-19); BLOOD UREA NITROGEN 10 mg/dL (7-20); CALCIUM 8.5 mg/dL (8.4-10.2); CARBON DIOXIDE 23 mmol/L (22-30); CHLORIDE 105 mmol/L (98-107); GLUCOSE 102 mg/dL (75-110); POTASSIUM 5.1 mmol/L (3.6-5.0); SODIUM 135.6 mmol/L (137-145)
--- NOTE | 2018-06-28 07:16 | PDOC PROGRESS REPORT ---
Subjective Progress Note for:: 06/28/18 Reason For Visit: SEPSIS,SICKLE CELL ANEMIA 28-year-old black male with a very complicated past medical history now postop day 1 status post hardware removal and insertion of the cement spacer in the right hip. Patient much more alert and interactive this morning. Denies significant discomfort. Physical Exam Vital Signs: Temp Pulse Resp BP Pulse Ox 36.6 C 108 H 15 102/55 L 100 06/28/18 03:00 06/28/18 03:00 06/28/18 03:00 06/28/18 03:00 06/28/18 03:00 Intake & Output 06/27/18 06/28/18 06/29/18 06:59 06:59 06:59 Intake Total 1005 6500 Output Total 4150 Balance 1005 2350 Weight 52 kg 50.7 kg General appearance: PRESENT: no acute distress Respiratory exam: PRESENT: unlabored Cardiovascular exam: PRESENT: RRR Pulses: PRESENT: +1 pedal pulses bilateral GI/Abdominal exam: PRESENT: soft Rectal exam: PRESENT: deferred Extremities exam: PRESENT: other - Right hip dressing is been reinforced. Leg lengths are equal. Distal neurovascular examination is intact. Results Laboratory Results: 06/28/18 04:10 06/28/18 04:10 06/27/18 06/28/18 06/28/18 19:37 04:10 04:10 WBC 24.3 H 18.8 H RBC 2.76 L 2.59 L Hgb 8.3 L 7.5 L Hct 24.3 L 23.0 L MCV 88 89 MCH 30.1 29.0 MCHC 34.1 32.7 RDW 16.3 H 16.9 H Plt Count 532 H 532 H Seg Neutrophils % 81.6 H Lymphocytes % 8.7 L Monocytes % 9.0 Eosinophils % 0.1 Basophils % 0.6 Absolute Neutrophils 15.4 H Absolute Lymphocytes 1.6 Absolute Monocytes 1.7 H Absolute Eosinophils 0.0 Absolute Basophils 0.1 Sodium 135.6 L Potassium 5.1 H Chloride 105 Carbon Dioxide 23 Anion Gap 8 BUN 10 Creatinine 0.61 Est GFR ( Amer) > 60 Est GFR (Non-Af Amer) > 60 Glucose 102 Calcium 8.5 Magnesium 1.6 Impressions: Femur X-Ray 06/25/18 17:05 IMPRESSION: Status post ORIF of the femur. No evidence of subcutaneous gas to suggest abscess ; however, this entity is not entirely excluded by radiography. Status: Imported from PACS Assessment & Plan - Diagnosis (1) Infected hardware in right lower extremity Qualifiers: Encounter type: initial encounter Qualified Code(s): T84.7XXA - Infection and inflammatory reaction due to other internal orthopedic prosthetic devices, implants and grafts, initial encounter Is this a current diagnosis for this admission?: Yes Plan: Plan to mobilize with physical therapy on a touchdown weightbearing restriction on the right lower extremity. Anticipate 6 weeks of IV antibiotic therapy. Patient has grown MSSA from preoperative cultures and anticipate intraoperative cultures will reflect this. Antibiotics can then be adjusted appropriately. White blood count has decreased 18.8 thousand (2) Anemia due to blood loss Is this a current diagnosis for this admission?: Yes Plan: Patient with chronic anemia and now with superimposed blood loss intraoperatively. Current hematocrit is 23%. - Time Time Spent with patient: 15-24 minutes Anticipated discharge: SNF Within: Other
[2018-06-28] MEDS: DOCUSATE SODIUM 100 MG CAPSULE PO SCH ×2 (09:07→18:14)
[2018-06-28] MEDS: FAMOTIDINE INJ/PF 20 MG/2 ML SDV IV SCH (09:08)
[2018-06-28] MEDS: ENOXAPARIN SODIUM INJ 40 MG/0.4 ML DISP.SYRIN SUBCUT SCH (09:12)
[2018-06-28] MEDS: LEVETIRACETAM 500 MG TABLET PO SCH (09:15)
--- NOTE | 2018-06-28 16:26 | CONSULTATION REPORT E ---
Consultation Report NAME: EMIL BARNES : 1990 AGE: 28Y DATE: 06/28/2018 ROOM: 304 B TO: PRASANNA MATA M.D. FROM: RUMA RUTH M.D. Requesting Physician REASON FOR CONSULTATION: Sickle cell disease. 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 He was admitted to the hospital with possible sepsis due to infected hardware in his right lower extremity. He was taken to the OR yesterday and he had removal of the internal orthopedic prosthetic device and replaced. He feels a little bit better. He was seen at the bedside this afternoon, sitting in his chair. 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 He has iron overload, was on Desferal in the past. 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 Following 2012, he had a lot of deconditioning. He was admitted at [facility] up until 12/2013. He recently has been residing at the [facility], a living facility in [place], [place]. Unfortunately, he has had problems with wound infection and healing recently. He has also required recurrent transfusions. MEDICATIONS: Medications he was on at home should have included: Hydroxyurea, Exjade, Keppra, Flomax, and Procrit weekly. ALLERGIES: He has no known drug allergies. PHYSICAL EXAMINATION: GENERAL: On exam, he is a middle-aged man, chronically ill looking, sitting up in a chair. EXTREMITIES: No edema in any of the extremities. DIAGNOSTIC DATA: His hemoglobin is 7.5, white count 18.8, which is down from 24.3 yesterday, platelet count is 532. Sodium 135, potassium 5.1, BUN 10, creatinine 0.6. ASSESSMENT AND PLAN: The patient is a 28-year-old with hemoglobin SS disease who unfortunately now has sepsis. He has had recurrent hospitalizations for sepsis and wound infection over the last 6 months to a year. It is increasingly more difficult to get his wound to heal. I called , assistant scientist at [facility], this morning and she agrees with me that some transfusion exchange might be beneficial to help reduce his sickle cell hemoglobin, increase oxygenation to the bone and help with the healing of his bone and wound. I discussed this with the patient, his aunt, primary care physician, and orthopedic physician. I believe type transfusion will be beneficial. When he is discharged, I will be glad to follow him as an outpatient. I will try and maximize his hemoglobin by him continuing on the hydroxyurea, which will help to increase his hemoglobin and then the Procrit to stimulate his bone marrow for more cells. I thank you for this consultation and allowing me to be a part of his care. DICTATING PHYSICIAN: PRASANNA MATA M.D. [id number] PHY#: [id number] ID: [id number] JOB#: [id number] ACCT: [id number] cc:PRASANNA MATA M.D. >
[2018-06-28] MEDS: ERTAPENEM SODIUM 1 GM in NORMAL SALINE 50 ML IV SCH (18:14)
[2018-06-28 18:45] LABS: VANCOMYCIN,TROUGH 10.5 ug/mL (5.0-20.0)
[2018-06-28 19:53] VITALS: BP 132/72
--- NOTE | 2018-06-28 20:45 | PDOC TRANSFER SUMMARY ---
General Admission Date/PCP: 06/25/18 18:49 RUMA RUTH MD Transfer Date: 06/28/18 Accepting Facility: [facility] Resuscitation Status: Full Code - Transfer Diagnosis (1) Sepsis Is this a current diagnosis for this admission?: Yes (2) Infected hardware in right lower extremity Is this a current diagnosis for this admission?: Yes (3) Sickle cell anemia Is this a current diagnosis for this admission?: Yes - Transfer Medications Home Medications: Diclofenac Sodium [Voltaren 50 mg Tablet.dr] 50 mg PO Q12 06/26/18 Folic Acid [Folvite 1 mg Tablet] 1 mg PO DAILY 06/26/18 Hydroxyurea [Hydrea 500 mg Capsule] 500 mg PO DAILY 06/26/18 Levetiracetam [Keppra 500 mg Tablet] 500 mg PO Q12 06/26/18 Megestrol Acetate 40 mg PO DAILY 06/26/18 Mirtazapine 7.5 mg PO QHS 06/26/18 Misoprostol [Cytotec 0.2 mg Tablet] 0.2 mg PO Q12 06/26/18 Oxycodone HCl/Acetaminophen [Endocet 5-325 Tablet] 1 tab PO Q6HP PRN 06/26/18 Tamsulosin HCl [Flomax 0.4 mg Cap.sr] 0.4 mg PO QPM 06/26/18 Transfer Medications: Current Medications Acetaminophen (Tylenol 325 Mg Tablet) 650 mg PO Q4HP PRN PRN Reason: FOR PAIN Stop: 07/25/18 18:35 Docusate Sodium (Colace 100 Mg Capsule) 100 mg PO BID KRYSTAL Stop: 07/26/18 09:59 Last Admin: 06/28/18 18:14 Dose: 100 mg Enoxaparin Sodium (Lovenox Inj 40 Mg/0.4 Ml Disp.Syrin) 40 mg SUBCUT DAILY KRYSTAL Stop: 07/26/18 09:59 Last Admin: 06/28/18 09:12 Dose: Not Given Famotidine (Pepcid Inj/Pf 20 Mg/2 Ml Sdv) 20 mg IV Q12 KRYSTAL Stop: 07/25/18 21:59 Last Admin: 06/28/18 09:08 Dose: 20 mg Lactated Ringer's (Lactated Ringers 1000 Ml Iv Soln) 1,000 mls @ 150 mls/hr IV CONTINUOUS PRN PRN Reason: THIS MED IS NOT "PRN" Stop: 07/27/18 06:39 Last Admin: 06/28/18 15:00 Dose: 150 mls/hr Vancomycin HCl 750 mg/ (Dextrose) 250 mls @ 166.667 mls/hr IV Q12A [facility] Stop: 07/03/18 17:59 Last Admin: 06/28/18 18:14 Dose: 166.7 mls/hr Ertapenem 1 gm/ Sodium (Chloride) 50 mls @ 100 mls/hr IV QPM [facility] Stop: 07/04/18 17:59 Last Admin: 06/28/18 18:14 Dose: 100 mls/hr Levetiracetam (Keppra 500 Mg Tablet) 500 mg PO Q12 [facility] Stop: 07/25/18 21:59 Last Admin: 06/28/18 09:15 Dose: 500 mg Ondansetron HCl (Zofran Inj/Pf 4 Mg/2 Ml Sdv) 4 mg IV Q4HP PRN PRN Reason: FOR NAUSEA/VOMITING Stop: 07/25/18 18:35 Oxycodone/Acetaminophen (Percocet 5-325 Mg Tablet) 1 tab PO Q4HP PRN PRN Reason: FOR PAIN SCALE 1-3 Stop: 07/02/18 18:35 Last Admin: 06/28/18 19:56 Dose: 1 tab - Allergies Allergies/Adverse Reactions: No Known Drug Allergies Allergy (Unknown, Verified 06/25/18 16:56) Hospital Course Hospital Course: Patient is 28-year-old male with history of sickle cell anemia, he was admitted for the management of sepsis due to right periprosthetic infection. He has recurrent staph aureus sepsis, with multiple revision of the right hip prosthetics, on this admission he underwent hardware removal with implantation of cement spacer. He was seen by solution strategist, she suggested exchange blood transfusion may be beneficial for this patient with recurrent staph aureus sepsis, multiple blood transfusion for sickle cell anemia. The plan is to transfer to [facility]. Physical Exam Vital Signs: Temp Pulse Resp BP Pulse Ox 98.1 F 117 H 14 132/72 H 100 06/28/18 19:20 06/28/18 19:20 06/28/18 19:20 06/28/18 19:20 06/28/18 19:20 Intake & Output 06/27/18 06/28/18 06/29/18 06:59 06:59 06:59 Intake Total 1005 6750 1487 Output Total 4150 Balance 1005 2600 1487 Weight 52 kg 50.7 kg General appearance: PRESENT: no acute distress Eye exam: PRESENT: PERRLA Respiratory exam: PRESENT: clear to auscultation ishan Cardiovascular exam: PRESENT: +S1, +S2 GI/Abdominal exam: PRESENT: soft Neurological exam: PRESENT: alert Results Laboratory Results: 06/28/18 04:10 06/28/18 17:35 06/28/18 06/28/18 06/28/18 04:10 04:10 17:35 WBC 18.8 H RBC 2.59 L Hgb 7.5 L Hct 23.0 L MCV 89 MCH 29.0 MCHC 32.7 RDW 16.9 H Plt Count 532 H Seg Neutrophils % 81.6 H Lymphocytes % 8.7 L Monocytes % 9.0 Eosinophils % 0.1 Basophils % 0.6 Absolute Neutrophils 15.4 H Absolute Lymphocytes 1.6 Absolute Monocytes 1.7 H Absolute Eosinophils 0.0 Absolute Basophils 0.1 Sodium 135.6 L Potassium 5.1 H Chloride 105 Carbon Dioxide 23 Anion Gap 8 BUN 10 Creatinine 0.61 0.56 Est GFR ( Amer) > 60 > 60 Est GFR (Non-Af Amer) > 60 > 60 Glucose 102 Calcium 8.5 Magnesium 1.6 Impressions: Femur X-Ray 06/25/18 17:05 IMPRESSION: Status post ORIF of the femur. No evidence of subcutaneous gas to suggest abscess ; however, this entity is not entirely excluded by radiography.
== END 2018-06-28 20:06 | disposition short-term general hospital (02) | DRG 853 ==
LOC: ER 16:39 → EH 18:49 → 3N 21:38
PROVIDERS: ADMIT Internal Medicine; ATTEND Internal Medicine
PROC: 30233N1 Transfusion of Nonautologous Red Blood Cells into Peripheral Vein, Percutaneous Approach (ICD-10-PCS; 2018-06-26)
PROC: 0QT60ZZ Resection of Right Upper Femur, Open Approach (ICD-10-PCS; 2018-06-27)
PROC: 0SH908Z Insertion of Spacer into Right Hip Joint, Open Approach (ICD-10-PCS; 2018-06-27)
PROC: 0QP604Z Removal of Internal Fixation Device from Right Upper Femur, Open Approach (ICD-10-PCS; principal; 2018-06-27 13:15)
DX: A41.01 Sepsis due to Methicillin susceptible Staphylococcus aureus (principal); D57.00 Hb-SS disease with crisis, unspecified; T84.7XXA Infection and inflammatory reaction due to other internal orthopedic prosthetic devices, implants and grafts, initial encounter; D62 Acute posthemorrhagic anemia; I69.354 Hemiplegia and hemiparesis following cerebral infarction affecting left non-dominant side; R01.1 Cardiac murmur, unspecified; M19.90 Unspecified osteoarthritis, unspecified site; K21.9 Gastro-esophageal reflux disease without esophagitis; F32.9 Major depressive disorder, single episode, unspecified; Z90.49 Acquired absence of other specified parts of digestive tract; D72.829 Elevated white blood cell count, unspecified; Z93.0 Tracheostomy status; Z93.1 Gastrostomy status; G40.909 Epilepsy, unspecified, not intractable, without status epilepticus
CPT/HCPCS: 01230; 36415; 36430; 80048; 80053; 80202; 82565; 83605; 83735; 85025; 85027; 85045; 85652; 86140; 86850; 86900; 86901; 86902; 86920; 87040; 87070; 87075; 87077; 87186; 87205; 88304; 88311; 96374; 96375; 99291; C1713; G8978-GP; G8979-GP; J0131; J0696; J1100; J1170; J1335; J1650; J1885; J2250; J2405; J2704; J3010; J3370; J3490; J7030; J7060; J7120; P9016; S0028

== ENCOUNTER → 2018-08-18 | Outpatient (CLI) | payer MEDICARE, MEDICAID ==
[~2018-08-18] MED LIST changes: +ACETAMINOPHEN 1,000 MG/100 ML RTUPB IV ONE; +BUPIVACAINE INJ/PF LIPOSOME/PF 266 MG/20 ML SDV INJ PRN; +BUPIVACAINE INJ/PF LIPOSOME/PF 266 MG/20 ML SDV ONE; +CEFAZOLIN INJ 1 GM VIAL IV PRN; +DEXMEDETOMIDINE INJ 80 MCG/20 ML VIAL IV ONE; +EPHEDRINE SULFATE INJ 50 MG/1 ML AMPULE ONE; +FENTANYL CITRATE INJ/PF 250 MCG/5 ML AMPULE ONE; +HYDROMORPHONE HCL INJ/PF 2 MG/ML AMPULE ONE; -IBUPROFEN 800 MG in NORMAL SALINE 250 ML IV ONE; +IBUPROFEN 800 MG in NORMAL SALINE 250 ML IV PRN; -IBUPROFEN 800 MG/NS 250 ML IV PRN; -LANSOPRAZOLE 30 MG TAB.RAP.DR PO SCH; -LIDOCAINE 0.5% INJ-PF (5 MG/ML) 50 ML SDV SUBCUT PRN; +LIDOCAINE 2% INJ-PF (20 MG/ML) 10 ML AMPUL ONE; +MIDAZOLAM 2 MG/2 ML INJ ONE; -MORPHINE SULFATE 10 MG/ML INJ IV PRN; -ONDANSETRON HCL INJ/PF 4 MG/2 ML SDV IV PRN; -OXYCODONE HCL SR 10 MG TABLET PO ONE; +PROPOFOL INJ 200 MG/20 ML VIAL IV ONE; +THROMBIN (BOVINE) TOPICAL 20000 UNIT VIAL ONE; +THROMBIN (BOVINE) TOPICAL 5000 UNIT VIAL ONE
--- NOTE | 2018-08-21 19:52 | HISTORY AND PHYSICAL E ---
History and Physical NAME: EMIL BARNES : 1990 AGE: 28Y ADMITTED: 08/22/2018 ROOM: CHIEF COMPLAINT: Hip pain. HISTORY OF PRESENT ILLNESS: This is a 28-year-old male patient of Dr. Fam with a history of sickle cell disease, multiple hospital admissions, bilateral hip fracture surgery, previous hardware infections to the hip, who presented from the emergency department to the nursing facility with a complaint of right lateral mid-thigh pain over the last couple of days. Patient stated that he is scheduled for right hip surgery by Dr. Marcos tomorrow, and according to the patient's family, with hip replacement. Patient states that this does not feel like a sickle cell crisis for him. He has not noticed any redness or purulent discharge. He is eating and drinking without any problems. He is not able to ambulate too well because of the pain in the hip and leg. Patient, according to the family, had his left hip hardware removed, and the infection in the left hip was all cleared. Patient had a preop done a couple of days back, and according to the family, after that, patient was complaining of right hip pain. Patient has a history of MRSA in the past. Patient currently denies any fever. No chills. No shortness of breath. Patient's white count is elevated. Patient says it is not like any sickle cell crisis. Other than that, patient denies any other symptoms. PAST MEDICAL HISTORY: 1. History of multiple sickle cell crises. 2. History of hypertension. 3. No heart disease. 4. Hip fractures. 5. History of MRSA in the past. SOCIAL HISTORY: No smoking, no alcohol. Currently living in a nursing facility. No substance or drug abuse. MEDICATIONS: 1. Voltaren 50 mg tablet. 2. Folic acid. 3. Hydroxyurea 400 mg p.o. daily. 4. Keppra 400 mg p.o. twice daily. 5. Megace daily. 6. Cytotec 0.2 mg daily. 7. Oxycodone daily. 8. Flomax daily. ALLERGIES: No known drug allergies. REVIEW OF SYSTEMS: As above. All other pertinent negative. PHYSICAL EXAMINATION: VITAL SIGNS: Blood pressure is 134/94, temperature is 98.1, pulse is 106, respirations are 25, O2 sat 100% on room air. GENERAL: Patient is alert, awake, oriented. A little thin. No acute distress. HEENT: Head and neck normocephalic. MILLY. LUNGS: No wheezing, no rales, no rhonchi. HEART: S1, S2 are present. ABDOMEN: Soft. Bowel sounds present. EXTREMITIES: On the right hip and legs, there was a tenderness over lateral femur when I tried to palpate, without evidence of erythema, warmth, ecchymosis or deformity. NEUROLOGIC: No focal weakness. LABORATORY DATA: WBC is 19.8, hemoglobin is 10.3, platelets are 272,000. Chemistries: Sodium is 141, potassium is 5.0, BUN is 15, creatinine is 0.48. Patient's total bilirubin is 2.7. AST is 71, ALT is 55. IMAGING STUDIES: Patient had right femur x-rays *------* Patient had antegrade eversion of the right hip hardware. No gross refractures. ASSESSMENT: 1. Right hip pain. 2. History of right hip prosthetic infections. 3. Sickle cell disease. 4. Elevated white count. 5. Elevated liver enzymes. 6. Hypertension. PLAN: Admit the patient to the medical floor. Start on IV antibiotic with elevated white count, but I noticed patient's white count was also elevated before. Patient is currently afebrile. Will get the lactic acid. Patient is also scheduled for right hip surgery per Ortho. Will consult Orthopedic Surgery. Will also get an ultrasound of the abdomen for the elevated liver enzymes. Patient otherwise clinically stable. Discussed with the patient's family in the room. Will admit the patient and consult by Ortho. More than 30 minutes spent examining the patient and reviewing the records. DICTATING PHYSICIAN: ANDREINA POPE M.D. [id number] PHY#: [id number] ID: [id number] JOB#: [id number] ACCT: [id number] cc: >
== END ==
LOC: OD 13:19 → EDSTATUS 08-22 08:45
PROVIDERS: ATTEND Orthopaedic Surgery
DX: Z53.9 Procedure and treatment not carried out, unspecified reason (principal)
CPT/HCPCS: C9290; J0131; J1170; J1741; J2250; J2704; J3010; J3370; J3490; J7050; J7060

== ENCOUNTER → 2018-08-18 | Outpatient (CLI) | payer MEDICARE, MEDICAID ==
--- NOTE | 2018-08-18 11:12 | RADIOLOGY REPORT (SQ) ---
EXAM DESCRIPTION: CHEST PA/LATERAL COMPLETED DATE/TIME: 08/18/2018 11:01 am REASON FOR STUDY: PRE-OP COMPARISON: Chest films 02/24/2018, 01/05/2018, 03/14/2017 EXAM PARAMETERS: NUMBER OF VIEWS: two views TECHNIQUE: Digital Frontal and Lateral radiographic views of the chest acquired. RADIATION DOSE: NA LIMITATIONS: none FINDINGS: LUNGS AND PLEURA: No opacities, masses or pneumothorax. No pleural effusion. MEDIASTINUM AND HILAR STRUCTURES: No masses or contour abnormalities. HEART AND VASCULAR STRUCTURES: Heart normal size. No evidence for failure. BONES: No acute findings. HARDWARE: None in the chest. OTHER: No other significant finding. IMPRESSION: NO SIGNIFICANT RADIOGRAPHIC FINDING IN THE CHEST. TECHNICAL DOCUMENTATION: JOB ID: [id number] [employer]- All Rights Reserved Reading location - IP/workstation name: [email or web address]
--- NOTE | 2018-08-18 12:50 | EKG REPORT ---
SEVERITY:- ABNORMAL ECG - SINUS TACHYCARDIA JOSEFA, CONSIDER BIATRIAL ABNORMALITIES PROBABLE LEFT VENTRICULAR HYPERTROPHY ST ELEVATION SUGGESTS PERICARDITIS , CLINICAL CORRELATION NEEDED. : Confirmed by: Peter Cruz MD 18-Aug-2018 12:49:21
== END ==
LOC: OD 09:53
PROVIDERS: ATTEND Orthopaedic Surgery
DX: Z01.818 Encounter for other preprocedural examination (principal); M25.551 Pain in right hip
CPT/HCPCS: 71046; 93005; 93010

== ENCOUNTER 2018-08-21 10:49 | Inpatient (IN) | payer MEDICARE, MEDICAID ==
[2018-08-21] MEDS ORDERED: HYDROMORPHONE HCL INJ/PF 2 MG/ML AMPULE IV ONE ×2 (11:06→12:21)
--- NOTE | 2018-08-21 11:06 | ER Document Report ---
HPI - HPI Pain Level: 3 Notes: Patient is a 28-year-old male with a history of sickle cell, bilateral hip fracture/surgeries, previous hardware infection to the hip who presents to the ED complaining of right lateral mid thigh pain over the last couple days. Patient states that he is scheduled for surgery in the next 1-2 days for a total hip replacement on the right side. Patient states that this does not feel like this is a sickle cell crisis to him. He has not noticed any redness or purulent discharge. He is eating and drinking without difficulties. He is not able to ambulate well because of pain in his hip and leg. No other concerns or complaints. Denies any headache, fever, neck pain, URI, sore throat , chest pain, palpitations, syncope, cough, shortness of breath, wheeze, dyspnea , abdominal pain, nausea/vomiting/diarrhea, urinary retention, dysuria, hematuria, numbness/tingling, saddle anesthesia, muscle paralysis/weakness, or rash. - ROS Systems Reviewed and Negative: Yes All other systems reviewed and negative - REPRODUCTIVE Reproductive: DENIES: : Past Medical History - Social History Smoking Status: Never Smoker Family History: Reviewed & Not Pertinent, Other Patient has suicidal ideation: No Patient has homicidal ideation: No - Past Medical History Cardiac Medical History: Reports: Hx Hypertension, Hx Heart Murmur Denies: Hx Atrial Fibrillation, Hx Congestive Heart Failure, Hx Coronary Artery Disease, Hx Heart Attack, Hx Peripheral Vascular Disease, Hx Pulmonary Embolism Pulmonary Medical History: Denies: Hx Asthma, Hx Bronchitis, Hx COPD, Hx Pneumonia, Hx Tuberculosis Neurological Medical History: Reports: Hx Cerebrovascular Accident - ANEURYSM 2010, LEFT SIDED DEFICIT, Hx Seizures - ON MEDS Endocrine Medical History: Denies: Hx Graves' Disease, Hx Hyperthyroidism, Hx Hypothyroidism Renal/ Medical History: Denies: Hx Peritoneal Dialysis Malignancy Medical History: Denies Hx Leukemia, Denies Hx Lung Cancer GI Medical History: Reports: Hx Gastroesophageal Reflux Disease. Denies: Hx Pancreatitis, Hx Ulcer Musculoskeletal Medical History: Reports Hx Arthritis, Denies Hx Fibromyalgia, Denies Hx Multiple Sclerosis, Denies Hx Muscular Dystrophy Psychiatric Medical History: Reports: Hx Anxiety, Hx Depression Denies: Hx Bipolar Disorder, Hx Dementia, Hx Schizophrenia Traumatic Medical History: Reports: Hx Fractures - proximal femur Infectious Medical History: Denies: Hx HIV Past Surgical History: Reports: Hx Cholecystectomy, Hx Oral Surgery - reconstruction, Hx Orthopedic Surgery - Patient underwent open reduction internal fixation of bilateral proximal fe, Other - Patient tracheostomy and PEG tube placement [facility] 3 years. Denies: Hx Appendectomy, Hx Bowel Surgery, Hx Coronary Artery Bypass Graft, Hx Gastric Bypass Surgery, Hx Herniorrhaphy, Hx Pacemaker, Hx Tonsillectomy - Immunizations Immunizations up to date: Yes Hx Diphtheria, Pertussis, Tetanus Vaccination: No Hx Pneumococcal Vaccination: 08/05/12 Vertical Provider Document - CONSTITUTIONAL Agree With Documented VS: Yes Notes: PHYSICAL EXAMINATION: GENERAL: Well-appearing, well-nourished and in no acute distress. HEAD: Atraumatic, normocephalic. EYES: Pupils equal round and reactive to light, extraocular movements intact, sclera anicteric, conjunctiva are normal. ENT: Nares patent and without discharge. oropharynx clear without exudates. No tonsilar hypertrophy or erythema. Moist mucous membranes. NECK: Normal range of motion, supple without lymphadenopathy LUNGS: Breath sounds clear to auscultation bilaterally and equal. No wheezes rales or rhonchi. HEART: Regular rate and rhythm without murmurs, rubs, gallops. ABDOMEN: Soft, nontender, nondistended abdomen. No guarding, no rebound. No masses appreciated. Normal bowel sounds present. No CVA tenderness bilaterally. Musculoskeletal: Rt hip/leg: LROM to passive/active at the hip. + tenderness to the lateral femur/thigh to palp w/o evidence of erythema, warmth, ecchymosis , or deformity. Strength 4+/5 due to pain. No LE asymmetry with negative lul b/l. Extremities: No cyanosis, clubbing, or edema b/l. Peripheral pulses 2+. Capillary refill less than 3 seconds. NEUROLOGICAL: Normal speech. Normal sensory, motor exams PSYCH: Normal mood, normal affect. SKIN: Warm, Dry, normal turgor, no rashes or lesions noted. - INFECTION CONTROL TRAVEL OUTSIDE OF THE [place] IN LAST 30 DAYS: No Course - Re-evaluation Re-evalutation: 08/21/18 13:07 Patient is an afebrile, well-hydrated, 28-year-old male who presents to the ED with ongoing right leg/hip pain, intractable pain, and sickle cell (no acute crisis). Vitals are acceptable. PE is otherwise unremarkable. CBC, CMP, x- ray were unremarkable for acute pathology. I did review with orthopedics, Dr. Mcmanus, who are agreeable to admission under his family doctor and they will consult in the morning for his presumed surgery tomorrow. I did review with Dr. Pereyra who would like 1 g of Invanz IV and admission to medical floor. Patient is in agreement with plan. - Vital Signs Vital signs: Temp Pulse Resp BP Pulse Ox 97.4 F 110 H 20 126/76 H 97 08/21/18 10:55 08/21/18 10:55 08/21/18 10:55 08/21/18 10:55 08/21/18 10:55 - Laboratory Result Diagrams: 08/21/18 11:39 08/21/18 11:39 Discharge - Discharge Clinical Impression: Pain, joint, hip, right, Intractable pain Condition: Stable Disposition: ADMITTED INPATIENT Admitting Provider: Roddy Unit Admitted: Medical Floor Referrals: YON FRASER MD [Primary Care Provider] - Follow up as needed
[2018-08-21] MEDS ORDERED: NORMAL SALINE 1000 ML 1,000 ML IV ONE (11:07)
[2018-08-21 11:53] LABS: ABSOLUTE BASOPHILS # (AUTO) 0.1 10^3/uL (0.0-0.2); ABSOLUTE MONOCYTES (AUTO) 2.2 10^3/uL (0.1-1.4); ABSOLUTE NEUT (AUTO) 16.5 10^3/uL (1.7-8.2); ABSOLUTE RETICS # 0.041 10^6/uL (0.028-0.122); BASOPHILS % (AUTO) 0.5 % (0-2); EOSINOPHILS % (AUTO) 0.1 % (0-6); HEMATOCRIT 30.7 % (37.9-51.0); HEMOGLOBIN 10.3 g/dL (13.5-17.0); LYMPHOCYTES % (AUTO) 5.1 % (13-45); MEAN CORPUSCULAR HEMOGLOBIN 28.2 pg (27.0-33.4); MEAN CORPUSCULAR HGB CONC 33.4 g/dL (32.0-36.0); MEAN CORPUSCULAR VOLUME 85 fl (80-97); MONOCYTES % (AUTO) 11.3 % (3-13); PLATELET COUNT 272 10^3/uL (150-450); RED BLOOD COUNT 3.64 10^6/uL (4.35-5.55); RED CELL DISTRIBUTION WIDTH 16.7 % (11.5-14.0); RETICULOCYTE COUNT (AUTO) 1.13 % (0.66-2.85); TOTAL CELLS COUNTED % (AUTO) 100 %; WHITE BLOOD COUNT 19.8 10^3/uL (4.0-10.5)
--- NOTE | 2018-08-21 12:08 | RADIOLOGY REPORT (SQ) ---
EXAM DESCRIPTION: FEMUR RIGHT COMPLETED DATE/TIME: 08/21/2018 11:56 am REASON FOR STUDY: rt mid femur/leg pain, lateral COMPARISON: Right femur plain films 03/06/2017, 06/25/2018 NUMBER OF VIEWS: Two views. TECHNIQUE: Two radiographic images acquired of the right femur to include hip and knee in at least o ne projection. LIMITATIONS: None. FINDINGS: Bones are osteoporotic. Since the prior studies, patient has had surgery along the right proximal femur with a right femoral head replacement anchored with a single screw. No lucency around the hardware worrisome for loosenin g. No acute re- fracture. High-grade right hip joint space narrowing. There is bulky heterotopic o ssification along the greater and lesser trochanters. Remainder of the right femur demonstrates an old screw tract in the distal femur from remote prior jonas rgery. Hardware has since been removed. IMPRESSION: Since the prior study patient has undergone a revision of the right hip hardware. No gr oss re- fracture. TECHNICAL DOCUMENTATION: JOB ID: [id number] [employer]- All Rights Reserved Reading location - IP/workstation name: [email or web address]
[2018-08-21 12:47] LABS: ALANINE AMINOTRANSFERASE 55 U/L (21-72); ALKALINE PHOSPHATASE 106 U/L (38-126); ANION GAP 9 (5-19); ASPARTATE AMINO TRANSFERASE 71 U/L (17-59); BILIRUBIN,DIRECT 0.9 mg/dL (0.0-0.4); BILIRUBIN,TOTAL 2.7 mg/dL (0.2-1.3); BLOOD UREA NITROGEN 15 mg/dL (7-20); CALCIUM 9.7 mg/dL (8.4-10.2); CARBON DIOXIDE 27 mmol/L (22-30); CHLORIDE 106 mmol/L (98-107); GLUCOSE 123 mg/dL (75-110); SODIUM 141.6 mmol/L (137-145); TOTAL PROTEIN 8.4 g/dL (6.3-8.2)
[2018-08-21] MEDS ORDERED: ERTAPENEM SODIUM INJ 1 GM VIAL IV ONE (13:08)
[2018-08-21] MEDS ORDERED: ONDANSETRON HCL INJ/PF 4 MG/2 ML SDV IV PRN (13:14)
[2018-08-21] MEDS ORDERED: HYDROMORPHONE HCL INJ/PF 2 MG/ML AMPULE IV PRN (13:22)
--- NOTE | 2018-08-21 14:31 | RADIOLOGY REPORT (SQ) ---
EXAM DESCRIPTION: U/S ABDOMEN COMPLETE W/O DOP COMPLETED DATE/TIME: 08/21/2018 2:21 pm REASON FOR STUDY: abnormal lft COMPARISON: 05/22/2012 TECHNIQUE: Dynamic and static grayscale images acquired of the abdomen and recorded on PACS. Additio nal selected color Doppler and spectral images recorded. LIMITATIONS: Intervening bowel gas precludes adequate visualization of the spleen and distal aorta. FINDINGS: PANCREAS: No masses. Visualized pancreatic duct normal caliber. LIVER: No masses. Echotexture normal. LIVER VASCULATURE: Normal directional flow of the main portal vein and hepatic veins. GALLBLADDER: No stones. Normal wall thickness. No pericholecystic fluid. ULTRASOUND-DETECTED SHEETS'S SIGN: Negative. INTRAHEPATIC DUCTS AND COMMON DUCT: CBD and intrahepatic ducts normal caliber. No filling defects. INFERIOR VENA CAVA: Normal flow. AORTA: No aneurysm. RIGHT KIDNEY: Normal size. Normal echogenicity. No solid or suspicious masses. No hydronephros is. No calcifications. LEFT KIDNEY: Normal size. Normal echogenicity. No solid or suspicious masses. No hydronephrosi s. No calcifications. SPLEEN: Not adequately visualized. PERITONEAL AND PLEURAL SPACES: No ascites or effusions. OTHER: No other significant finding. IMPRESSION: Limited examination in that the spleen was not adequately visualized. Otherwise unremar kable sonographic appearance of the abdomen. TECHNICAL DOCUMENTATION: JOB ID: [id number] [employer]- All Rights Reserved Reading location - IP/workstation name: [email or web address]
[2018-08-21] MEDS: NORMAL SALINE 1000 ML 1,000 ML IV PRN (14:33)
[2018-08-21] MEDS ORDERED: HYDROMORPHONE HCL INJ/PF 2 MG/ML AMPULE ONE (15:11)
[2018-08-21] MEDS: HYDROMORPHONE HCL INJ/PF 2 MG/ML AMPULE IV PRN ×3 (16:52→23:59)
[2018-08-21] MEDS ORDERED: PREGABALIN 75 MG CAPSULE PO ONE (17:00)
[2018-08-21] MEDS ORDERED: OXYCODONE HCL SR 10 MG TABLET PO ONE (17:00)
[2018-08-21] MEDS ORDERED: DIPHENHYDRAMINE HCL 50 MG/ML VIAL IV PRN (17:18)
[2018-08-21] MEDS: DOCUSATE SODIUM 100 MG CAPSULE PO SCH (19:30)
[2018-08-22] MEDS: NORMAL SALINE 1000 ML 1,000 ML IV PRN (03:48)
[2018-08-22] MEDS: HYDROMORPHONE HCL INJ/PF 2 MG/ML AMPULE IV PRN ×6 (05:21→22:11)
[2018-08-22 07:09] LABS: ABSOLUTE BASOPHILS # (AUTO) 0.1 10^3/uL (0.0-0.2); ABSOLUTE EOSINOPHILS # (AUTO) 0.1 10^3/uL (0.0-0.6); ABSOLUTE LYMPHOCYTES (AUTO) 1.5 10^3/uL (0.5-4.7); ABSOLUTE NEUT (AUTO) 13.8 10^3/uL (1.7-8.2); BASOPHILS % (AUTO) 0.7 % (0-2); EOSINOPHILS % (AUTO) 0.8 % (0-6); HEMATOCRIT 27.9 % (37.9-51.0); HEMOGLOBIN 9.3 g/dL (13.5-17.0); LYMPHOCYTES % (AUTO) 8.7 % (13-45); MEAN CORPUSCULAR HEMOGLOBIN 28.4 pg (27.0-33.4); MEAN CORPUSCULAR HGB CONC 33.5 g/dL (32.0-36.0); MEAN CORPUSCULAR VOLUME 85 fl (80-97); MONOCYTES % (AUTO) 11.3 % (3-13); PLATELET COUNT 228 10^3/uL (150-450); RED BLOOD COUNT 3.29 10^6/uL (4.35-5.55); SEGMENTED NEUTROPHILS % (AUTO) 78.5 % (42-78); TOTAL CELLS COUNTED % (AUTO) 100 %; WHITE BLOOD COUNT 17.5 10^3/uL (4.0-10.5)
[2018-08-22 07:17] LABS: INTERNATIONAL RATION (INR) 1.11; PROTHROMBIN TIME 14.9 SEC (11.4-15.4)
[2018-08-22] MEDS: BUPIVACAINE INJ/PF LIPOSOME/PF 266 MG/20 ML SDV ONE ×2 (08:02→10:04)
[2018-08-22] MEDS: THROMBIN (BOVINE) TOPICAL 20000 UNIT VIAL ONE ×2 (08:05→10:04)
[2018-08-22] MEDS: THROMBIN (BOVINE) TOPICAL 5000 UNIT VIAL ONE ×2 (08:06→10:04)
[2018-08-22 08:08] LABS: ANION GAP 8 (5-19); BLOOD UREA NITROGEN 16 mg/dL (7-20); CALCIUM 9.2 mg/dL (8.4-10.2); CARBON DIOXIDE 23 mmol/L (22-30); CHLORIDE 112 mmol/L (98-107); GLUCOSE 103 mg/dL (75-110); POTASSIUM 4.5 mmol/L (3.6-5.0); SODIUM 142.5 mmol/L (137-145)
[2018-08-22] MEDS ORDERED: CEFAZOLIN 1 GM/D5W RTU 1 GM/50 ML RTUPB IV ONE (08:33)
[2018-08-22] MEDS ORDERED: DIPHENHYDRAMINE HCL 50 MG/ML VIAL IV PRN ×3 (09:56→18:00)
[2018-08-22] MEDS ORDERED: PROMETHAZINE HCL INJ 25 MG/1 ML VIAL IV PRN ×2 (09:56)
[2018-08-22] MEDS ORDERED: ONDANSETRON HCL INJ/PF 4 MG/2 ML SDV IV PRN (09:56)
[2018-08-22] MEDS ORDERED: MEPERIDINE HCL/PF INJ 25 MG/1 ML DISP.SYRIN IV PRN (09:56)
[2018-08-22] MEDS ORDERED: FENTANYL CITRATE INJ/PF 100 MCG/2 ML AMPUL IV PRN ×3 (09:56)
[2018-08-22] MEDS ORDERED: MORPHINE SULFATE 10 MG/ML INJ IV PRN ×3 (09:56→10:34)
[2018-08-22] MEDS ORDERED: OXYCODONE HCL SR 10 MG TABLET PO SCH (10:00)
--- NOTE | 2018-08-22 10:33 | Operative Report ---
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 The right lower extremity and hindquarter is prepped and draped in a sterile fashion. A curvilinear incision was made over the greater trochanter a posterior approach the hip was taken. Upon entering the hip capsule with the cement spacer cultures were sent to microbiology. Tissue was also taken from the junction between the cement spacer and the residual femoral neck and sent for frozen section diagnosis. The latter is returned as consistent with acute inflammation. My clinical impression however is that this is not represent an acute inflammation situation. There is no purulence and there is minimal fluid present. Therefore a decision was made to proceed with the reconstruction in spite of the diagnosis returned by pathology. I anticipate ongoing suppressive antibiotic therapy based on his previous cultures. Attention was next turned to the acetabulum. Soft tissues cleared off the acetabulum using electrocautery. The acetabulum was then prepared using a series of hemispherical reamers until a 55 millimeters reamer is seated. Subsequently a 56 millimeters Whitetail titanium revision multihole hemispherical shell is impacted into position and secured with 2 screw. A standard flat 36 millimeters cross-link liner is impacted into the shell. Attention was next turned to the femur. Access is gained to the femoral canal using a canal finder. The femur is then prepared using a series of conical reamers until a number 20 mm broach is seated. Subsequently a 20 x 155 mm Elsi modular uatsdin stem is impacted into position. The proximal femur was then prepared using a series of cylindrical reamers until a 23 mm reamer is seated. A trial reduction was now performed using a 23 mm +10 millimeters head with standard neck. Leg length is close to being equal and there is adequate posterior stability.. A decision was made to proceed with the above construct. All trial implants were removed. The wound is irrigated with pulsed lavage. A number 23 mm +10 proximal body is impacted onto the existing modular uatsdin stem. It secured with a torque wrench.. A trial reduction was again performed with a 36 mm head and a standard neck. Findings as previously. The hip was dislocated one last time and the final chrome-cobalt head is impacted onto the trunnion. The hip was reduced. Wound is copiously irrigated with pulsed lavage. Sent closed in layers using interrupted PDS followed by sydney. A sterile dressing is applied followed by an abduction pillow and the patient's returned to recovery room in satisfactory patient.
[2018-08-22] MEDS ORDERED: ONDANSETRON 4 MG TAB.RAPDIS PO PRN (10:34)
[2018-08-22 12:09] LABS: HEMATOCRIT 20.3 % (37.9-51.0); MEAN CORPUSCULAR HEMOGLOBIN 27.3 pg (27.0-33.4); MEAN CORPUSCULAR HGB CONC 32.3 g/dL (32.0-36.0); MEAN CORPUSCULAR VOLUME 85 fl (80-97); PLATELET COUNT 163 10^3/uL (150-450); RED CELL DISTRIBUTION WIDTH 16.8 % (11.5-14.0); WHITE BLOOD COUNT 21.7 10^3/uL (4.0-10.5)
--- NOTE | 2018-08-22 12:13 | RADIOLOGY REPORT (SQ) ---
EXAM DESCRIPTION: PELVIS AP COMPLETED DATE/TIME: 08/22/2018 11:31 am REASON FOR STUDY: Post Op Long Cassette in PACU COMPARISON: 08/21/2018 NUMBER OF VIEWS: One view TECHNIQUE: AP Pelvis LIMITATIONS: None. FINDINGS: MINERALIZATION: Bony structures are diffusely osteopenic. HIPS: Patient is status post bilateral total hip replacements. The prostheses appear well seated in the acetabulum and proximal femoral medullary canals in the projections obtained. PELVIS AND SACRUM: No acute fracture or dislocation. No worrisome bone lesions. PUBIS AND ISCHIUM: No acute fracture. LOWER LUMBAR SPINE: No significant findings as visualized. SOFT TISSUES: No findings. OTHER: No other significant finding. IMPRESSION: Status post bilateral total hip replacements. Other findings as noted above. TECHNICAL DOCUMENTATION: JOB ID: [id number] [employer]- All Rights Reserved Reading location - IP/workstation name: [email or web address]
[2018-08-22 12:23] LABS: ANION GAP 6 (5-19); BLOOD UREA NITROGEN 16 mg/dL (7-20); CALCIUM 8.2 mg/dL (8.4-10.2); CARBON DIOXIDE 21 mmol/L (22-30); CHLORIDE 114 mmol/L (98-107); GLUCOSE 118 mg/dL (75-110); POTASSIUM 4.3 mmol/L (3.6-5.0); SODIUM 140.6 mmol/L (137-145)
[2018-08-22] MEDS ORDERED: TRANEXAMIC ACID INJ/PF 1,000 MG/10 ML SDV IV ONE (12:30)
[2018-08-22] MEDS: MORPHINE SULFATE 10 MG/ML INJ IM PRN ×4 (12:30→23:29)
[2018-08-22 12:40] LABS: HEMOGLOBIN 6.6 g/dL (13.5-17.0)
[2018-08-22 12:47] LABS: ABSOLUTE LYMPHOCYTES# (MANUAL) 1.1 10^3/uL (0.5-4.7); ABSOLUTE MONOCYTES # (MANUAL) 1.5 10^3/uL (0.1-1.4); ABSOLUTE NEUTROPHILS# (MANUAL) 18.9 10^3/uL (1.7-8.2); BAND NEUTROPHILS % (MANUAL) 2 % (3-5); BASOPHILS % (MANUAL) 1 % (0-2); EOSINOPHILS % (MANUAL) 0 % (0-6); LYMPHOCYTES % (MANUAL) 5 % (13-45); METAMYELOCYTES % (MANUAL) 1 % (0); MONOCYTES % (MANUAL) 7 % (3-13); SEGMENTED NEUTROPHILS % (MAN) 84 % (42-78); TOTAL CELLS COUNTED 100
[2018-08-22 12:48] LABS: ANISOCYTOSIS 1+; BURR CELLS SLIGHT; HOWELL-JOLLY BODIES PRESENT; HYPOCHROMASIA 1+; PLATELET CLUMPS PRESENT; POIKILOCYTOSIS 1+; POLYCHROMASIA 1+; SCHISTOCYTES SLIGHT; SICKLE RED CELLS SLIGHT; TARGET CELLS 1+
[2018-08-22] MEDS: OXYCODONE HCL IR 5 MG TABLET PO PRN ×2 (13:26→19:17)
[2018-08-22] MEDS: DOCUSATE SODIUM 100 MG CAPSULE PO SCH ×2 (13:26→19:14)
[2018-08-22] MEDS: PREGABALIN 75 MG CAPSULE PO SCH ×2 (13:26→21:34)
[2018-08-22] MEDS: OXYCODONE-ACETAMINOPHEN 5-325 MG TABLET PO PRN ×2 (13:27→19:17)
[2018-08-22] MEDS: MORPHINE SULFATE 10 MG/ML INJ IV PRN ×3 (13:28→18:55)
[2018-08-22] MEDS: ERTAPENEM SODIUM 1 GM in NORMAL SALINE 50 ML IV SCH (13:28)
[2018-08-22] MEDS ORDERED: PHENYLEPHRINE HCL INJ/PF 10 MG/1 ML SDV ONE (15:58)
[2018-08-22] MEDS ORDERED: METOCLOPRAMIDE HCL INJ/PF 10 MG/2 ML SDV ONE (15:58)
[2018-08-22] MEDS ORDERED: ONDANSETRON HCL INJ/PF 4 MG/2 ML SDV ONE (15:58)
[2018-08-22] MEDS ORDERED: SUCCINYLCHOLINE CHLORIDE INJ 200 MG/10 ML VIAL ONE (15:58)
[2018-08-22] MEDS ORDERED: DEXAMETHASONE SOD PHOSPHATE INJ 4 MG/1 ML VIAL ONE (15:58)
[2018-08-22] MEDS ORDERED: ACETAMINOPHEN 1,000 MG/100 ML RTUPB IV ONE (16:30)
[2018-08-22] MEDS ORDERED: DIPHENHYDRAMINE HCL 50 MG CAPSULE PO ONE (18:00)
[2018-08-22] MEDS: ENOXAPARIN SODIUM INJ 40 MG/0.4 ML DISP.SYRIN SUBCUT SCH (19:15)
[2018-08-22] MEDS: TAMSULOSIN HCL 0.4 MG CAP.SR.24H PO SCH (19:15)
--- NOTE | 2018-08-22 19:25 | PDOC PROGRESS REPORT ---
Subjective Progress Note for:: 08/22/18 Subjective:: Patient was admitted yesterday, he was seen by the bedside, he underwent removal of cement spacer, insertion of a right total hip arthroplasty. 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 Reason For Visit: RIGHT HIP PERIPROSTHETIC INFECTION Physical Exam Vital Signs: Temp Pulse Resp BP Pulse Ox 97.7 F 127 H 18 121/58 L 99 08/22/18 15:59 08/22/18 15:59 08/22/18 15:59 08/22/18 15:59 08/22/18 15:59 Intake & Output 08/21/18 08/22/18 08/23/18 06:59 06:59 06:59 Intake Total 1928 5950 Output Total 1400 3600 Balance 528 2350 Weight 49.6 kg General appearance: PRESENT: no acute distress Eye exam: PRESENT: PERRLA Respiratory exam: PRESENT: clear to auscultation ishan Cardiovascular exam: PRESENT: +S1, +S2 GI/Abdominal exam: PRESENT: soft Neurological exam: PRESENT: alert Results Laboratory Results: 08/22/18 11:50 08/22/18 11:50 08/22/18 08/22/18 08/22/18 06:55 06:55 11:50 WBC 17.5 H 21.7 H RBC 3.29 L 2.40 L Hgb 9.3 L 6.6 L D Hct 27.9 L 20.3 L MCV 85 85 MCH 28.4 27.3 MCHC 33.5 32.3 RDW 17.0 H 16.8 H Plt Count 228 163 Seg Neutrophils % 78.5 H Not Reportable Lymphocytes % 8.7 L Not Reportable Monocytes % 11.3 Not Reportable Eosinophils % 0.8 Not Reportable Basophils % 0.7 Not Reportable Absolute Neutrophils 13.8 H Not Reportable Absolute Lymphocytes 1.5 Not Reportable Absolute Monocytes 2.0 H Not Reportable Absolute Eosinophils 0.1 Not Reportable Absolute Basophils 0.1 Not Reportable Sodium 142.5 Potassium 4.5 Chloride 112 H Carbon Dioxide 23 Anion Gap 8 BUN 16 Creatinine 0.46 L Est GFR ( Amer) > 60 Est GFR (Non-Af Amer) > 60 Glucose 103 Calcium 9.2 Blood Type Antibody Screen 08/22/18 08/22/18 11:50 17:30 WBC RBC Hgb Hct MCV MCH MCHC RDW Plt Count Seg Neutrophils % Lymphocytes % Monocytes % Eosinophils % Basophils % Absolute Neutrophils Absolute Lymphocytes Absolute Monocytes Absolute Eosinophils Absolute Basophils Sodium 140.6 Potassium 4.3 Chloride 114 H Carbon Dioxide 21 L Anion Gap 6 BUN 16 Creatinine 0.54 Est GFR ( Amer) > 60 Est GFR (Non-Af Amer) > 60 Glucose 118 H Calcium 8.2 L Blood Type A POSITIVE Antibody Screen NEGATIVE Impressions: Abdomen Ultrasound 08/21/18 00:00 IMPRESSION: Limited examination in that the spleen was not adequately visualized. Otherwise unremarkable sonographic appearance of the abdomen. Femur X-Ray 08/21/18 11:01 IMPRESSION: Since the prior study patient has undergone a revision of the right hip hardware. No gross re- fracture. Pelvis X-Ray 08/22/18 10:36 IMPRESSION: Status post bilateral total hip replacements. Other findings as noted above. Assessment & Plan - Diagnosis (1) Sickle cell hemolytic anemia Qualifiers: Sickle-cell associated disorders: with unspecified crisis Qualified Code(s) : D57.00 - Hb-SS disease with crisis, unspecified; D57.0 - Hb-SS disease with crisis Is this a current diagnosis for this admission?: Yes Plan: The last time he was admitted he was transferred to [place] for exchange blood transfusion (2) Infected prosthesis of right hip Qualifiers: Encounter type: initial encounter Qualified Code(s): T84.51XA - Infection and inflammatory reaction due to internal right hip prosthesis, initial encounter Is this a current diagnosis for this admission?: Yes (3) Status post total replacement of right hip Is this a current diagnosis for this admission?: Yes
[2018-08-22] MEDS: OXYCODONE HCL SR 10 MG TABLET PO SCH (21:32)
[2018-08-22] MEDS: MIRTAZAPINE 15 MG TABLET PO SCH (21:33)
[2018-08-22] MEDS: MISOPROSTOL 0.2 MG TABLET PO SCH (21:36)
[2018-08-22] MEDS: LEVETIRACETAM 500 MG TABLET PO SCH (21:37)
[2018-08-22] MEDS: RINGERS SOLUTION,LACTATED 1,000 ML IV PRN (22:00)
[2018-08-22] MEDS ORDERED: VANCOMYCIN HCL 1,000 MG in DEXTROSE 5%-WATER 250 ML IV ONE (22:30)
[2018-08-23] MEDS: MORPHINE SULFATE 10 MG/ML INJ IM PRN ×3 (01:14→06:45)
[2018-08-23] MEDS: ACETAMINOPHEN 325 MG TABLET PO PRN ×3 (02:33→20:48)
[2018-08-23] MEDS: HYDROMORPHONE HCL INJ/PF 2 MG/ML AMPULE IV PRN ×4 (03:51→17:21)
[2018-08-23 04:58] LABS: ABSOLUTE BASOPHILS # (AUTO) 0.1 10^3/uL (0.0-0.2); ABSOLUTE EOSINOPHILS # (AUTO) 0.2 10^3/uL (0.0-0.6); ABSOLUTE LYMPHOCYTES (AUTO) 2.7 10^3/uL (0.5-4.7); ABSOLUTE MONOCYTES (AUTO) 2.8 10^3/uL (0.1-1.4); ABSOLUTE NEUT (AUTO) 11.7 10^3/uL (1.7-8.2); BASOPHILS % (AUTO) 0.6 % (0-2); EOSINOPHILS % (AUTO) 0.9 % (0-6); HEMATOCRIT 22.4 % (37.9-51.0); LYMPHOCYTES % (AUTO) 15.3 % (13-45); MEAN CORPUSCULAR HEMOGLOBIN 28.9 pg (27.0-33.4); MEAN CORPUSCULAR HGB CONC 34.6 g/dL (32.0-36.0); MEAN CORPUSCULAR VOLUME 84 fl (80-97); MONOCYTES % (AUTO) 15.9 % (3-13); PLATELET COUNT 191 10^3/uL (150-450); RED BLOOD COUNT 2.68 10^6/uL (4.35-5.55); SEGMENTED NEUTROPHILS % (AUTO) 67.3 % (42-78); TOTAL CELLS COUNTED % (AUTO) 100 %; WHITE BLOOD COUNT 17.4 10^3/uL (4.0-10.5)
[2018-08-23 05:01] LABS: HEMOGLOBIN 7.8 g/dL (13.5-17.0)
[2018-08-23 05:10] LABS: ANION GAP 6 (5-19); BLOOD UREA NITROGEN 15 mg/dL (7-20); CALCIUM 8.2 mg/dL (8.4-10.2); CARBON DIOXIDE 22 mmol/L (22-30); CHLORIDE 110 mmol/L (98-107); GLUCOSE 103 mg/dL (75-110); POTASSIUM 4.3 mmol/L (3.6-5.0)
[2018-08-23] MEDS: OXYCODONE-ACETAMINOPHEN 5-325 MG TABLET PO PRN ×2 (05:23→18:38)
[2018-08-23] MEDS: LANSOPRAZOLE 30 MG TAB.RAP.DR PO SCH (05:24)
[2018-08-23] MEDS: RINGERS SOLUTION,LACTATED 1,000 ML IV PRN ×3 (06:37→22:45)
--- NOTE | 2018-08-23 07:25 | PDOC PROGRESS REPORT ---
Subjective Progress Note for:: 08/23/18 Reason For Visit: RIGHT HIP PERIPROSTHETIC INFECTION 28-year-old black male with sickle cell disease postop day 1 status post right hip arthroplasty. Postoperative course has been uneventful. Physical Exam Vital Signs: Temp Pulse Resp BP Pulse Ox 38.0 C 131 H 20 141/73 H 100 08/23/18 05:18 08/23/18 03:34 08/23/18 03:34 08/23/18 03:34 08/23/18 03:34 Intake & Output 08/22/18 08/23/18 08/24/18 06:59 06:59 06:59 Intake Total 1928 8700 Output Total 1400 4800 Balance 528 3900 Weight 49.6 kg 51.6 kg General appearance: PRESENT: no acute distress, thin Respiratory exam: PRESENT: unlabored Cardiovascular exam: PRESENT: RRR Pulses: PRESENT: +1 pedal pulses bilateral Vascular exam: PRESENT: normal capillary refill Extremities exam: PRESENT: other - Right hip wound well approximated with sydney. There is no erythema. There is scant serosanguineous drainage. Leg lengths are equal. Distal neurovascular examination is intact. Neurological exam: PRESENT: alert, awake, oriented to time, oriented to situation Skin exam: PRESENT: dry, intact, warm. ABSENT: cyanosis, rash Results Laboratory Results: 08/23/18 04:09 08/23/18 04:09 08/22/18 08/22/18 08/22/18 06:55 11:50 11:50 WBC 21.7 H RBC 2.40 L Hgb 6.6 L D Hct 20.3 L MCV 85 MCH 27.3 MCHC 32.3 RDW 16.8 H Plt Count 163 Seg Neutrophils % Not Reportable Lymphocytes % Not Reportable Monocytes % Not Reportable Eosinophils % Not Reportable Basophils % Not Reportable Absolute Neutrophils Not Reportable Absolute Lymphocytes Not Reportable Absolute Monocytes Not Reportable Absolute Eosinophils Not Reportable Absolute Basophils Not Reportable Sodium 142.5 140.6 Potassium 4.5 4.3 Chloride 112 H 114 H Carbon Dioxide 23 21 L Anion Gap 8 6 BUN 16 16 Creatinine 0.46 L 0.54 Est GFR ( Amer) > 60 > 60 Est GFR (Non-Af Amer) > 60 > 60 Glucose 103 118 H Calcium 9.2 8.2 L Blood Type Antibody Screen 1008/23/18 08/23/18 17:30 04:09 04:09 WBC 17.4 H RBC 2.68 L Hgb 7.8 L Hct 22.4 L MCV 84 MCH 28.9 MCHC 34.6 RDW 16.0 H Plt Count 191 Seg Neutrophils % 67.3 Lymphocytes % 15.3 Monocytes % 15.9 H Eosinophils % 0.9 Basophils % 0.6 Absolute Neutrophils 11.7 H Absolute Lymphocytes 2.7 Absolute Monocytes 2.8 H Absolute Eosinophils 0.2 Absolute Basophils 0.1 Sodium 138.0 Potassium 4.3 Chloride 110 H Carbon Dioxide 22 Anion Gap 6 BUN 15 Creatinine 0.50 L Est GFR ( Amer) > 60 Est GFR (Non-Af Amer) > 60 Glucose 103 Calcium 8.2 L Blood Type A POSITIVE Antibody Screen NEGATIVE Impressions: Abdomen Ultrasound 08/21/18 00:00 IMPRESSION: Limited examination in that the spleen was not adequately visualized. Otherwise unremarkable sonographic appearance of the abdomen. Femur X-Ray 08/21/18 11:01 IMPRESSION: Since the prior study patient has undergone a revision of the right hip hardware. No gross re- fracture. Pelvis X-Ray 08/22/18 10:36 IMPRESSION: Status post bilateral total hip replacements. Other findings as noted above. Status: Imported from PACS Assessment & Plan - Diagnosis (1) Status post total replacement of right hip Is this a current diagnosis for this admission?: Yes Plan: Patient can be mobilized with physical therapy and weightbearing as tolerated basis with strict posterior hip precautions. Anticipate the need for ongoing antibiotic therapy. Levaquin has been used for suppressive therapy in the past. - Time Time Spent with patient: 15-24 minutes Anticipated discharge: SNF Within: Other
[2018-08-23] MEDS ORDERED: DILTIAZEM HCL/D5W 125 MG/125 ML RTUINJ IV PRN (08:04)
[2018-08-23] MEDS: DOCUSATE SODIUM 100 MG CAPSULE PO SCH ×2 (09:53→17:16)
[2018-08-23] MEDS ORDERED: AMIODARONE HCL 150 MG in DEXTROSE 5%-WATER 100 ML IV ONE (10:00)
[2018-08-23] MEDS ORDERED: DEXTROSE 5%-WATER 500 ML with AMIODARONE HCL 900 MG IV PRN ×2 (10:30)
[2018-08-23] MEDS: ENOXAPARIN SODIUM INJ 40 MG/0.4 ML DISP.SYRIN SUBCUT SCH (11:05)
[2018-08-23] MEDS: LEVOFLOXACIN 750 MG/D5W RTU 750 MG/150 ML RTUPB IV SCH (11:15)
[2018-08-23] MEDS: OXYCODONE HCL SR 10 MG TABLET PO SCH ×2 (11:15→21:21)
[2018-08-23] MEDS: ASPIRIN 81 MG TABLET, ENT COATED PO SCH (11:15)
[2018-08-23] MEDS: PREGABALIN 75 MG CAPSULE PO SCH ×2 (11:16→21:20)
[2018-08-23] MEDS: HYDROXYUREA 500 MG CAPSULE PO SCH (11:18)
[2018-08-23] MEDS: LEVETIRACETAM 500 MG TABLET PO SCH ×2 (11:18→21:23)
[2018-08-23] MEDS: ERTAPENEM SODIUM 1 GM in NORMAL SALINE 50 ML IV SCH (11:18)
[2018-08-23] MEDS: MISOPROSTOL 0.2 MG TABLET PO SCH ×2 (11:18→21:24)
[2018-08-23] MEDS: MEGESTROL ACETATE 20 MG TABLET PO SCH (11:18)
[2018-08-23] MEDS: METOPROLOL TARTRATE PF/INJ 5 MG/5 ML SDV IV PRN ×2 (15:06→16:09)
--- NOTE | 2018-08-23 15:24 | RADIOLOGY REPORT (SQ) ---
EXAM DESCRIPTION: CHEST SINGLE VIEW COMPLETED DATE/TIME: 08/23/2018 3:12 pm REASON FOR STUDY: sob COMPARISON: Chest films 08/18/2018 EXAM PARAMETERS: NUMBER OF VIEWS: One view. TECHNIQUE: Single frontal radiographic view of the chest acquired. RADIATION DOSE: NA LIMITATIONS: None. FINDINGS: LUNGS AND PLEURA: There is now dense consolidation in the right lower lobe worrisome for p neumonia. Aspiration should be considered. Trace right pleural effusion. This finding was called t o the patient's nurse on [address], 1515 hours Ryan Vega RN Left lung clear. No left pleural effusion. No right or left pneumothorax. MEDIASTINUM AND HILAR STRUCTURES: No masses. Contour normal. HEART AND VASCULAR STRUCTURES: Cardiac silhouette size accentuated by low lung volumes BONES: No acute findings. HARDWARE: None in the chest. OTHER: No other significant finding. IMPRESSION: Right lower lobe consolidation worrisome for pneumonia. Small right pleural effusion TECHNICAL DOCUMENTATION: JOB ID: [id number] [employer]- All Rights Reserved Reading location - IP/workstation name: [email or web address]
[2018-08-23] MEDS: MORPHINE SULFATE 10 MG/ML INJ IV PRN (16:01)
[2018-08-23] MEDS: TAMSULOSIN HCL 0.4 MG CAP.SR.24H PO SCH (17:20)
--- NOTE | 2018-08-23 18:00 | XCELERA REPORT ---
[address] [address] Transthoracic Echocardiogram Report Name: EMIL BARNES Age: 28 yrs Gender: Male : 1990 Patient Status: Inpatient Patient Location: [address] [place], [place] [id number] Study Date: 08/23/2018 03:20 PM Height: 74 in Weight: 113 lb BSA: 1.7 m2 Procedure: A complete two-dimensional transthoracic echocardiogram was performed (2D, M-mode, spectral and color flow Doppler). The study was technically adequate with some images being suboptimal in quality. Reason For Study: irregular rhythm Ordering Physician: SWATHI DAWKINS Performed By: Ha Patton Interpretation Summary Left ventricular systolic function is low normal. Doppler measurements suggest normal left ventricular diastolic function The left ventricle is grossly normal size. There are regional wall motion abnormalities as specified. The right ventricle is grossly normal size. The right ventricular systolic function is normal. The right atrium is normal in size The left atrial size is normal. There is a trace amount of mitral regurgitation There is no mitral valve stenosis. There is no aortic valve stenosis No aortic regurgitation is present. There is a mild amount of tricuspid regurgitation There is mild pulmonary hypertension by echo Right ventricular systolic pressure is estimated to be elevated at 30-40mmHg. The aortic root is not well visualized but is probably normal size. The inferior vena cava was not well visualized MMode/2D Measurements & Calculations RVDd: 3.2 cm LVIDd: 4.6 cm FS: 31.5 % Ao root diam: 2.8 cm IVSd: 0.77 cm LVIDs: 3.1 cm EDV(Teich): 96.0 ml Ao root area: 6.2 cm2 LVPWd: 0.96 cm ESV(Teich): 38.9 ml LA dimension: 3.4 cm EF(Teich): 59.5 % Doppler Measurements & Calculations MV E max malinda: MV P1/2t max malinda: Ao V2 max: LV V1 max P.7 cm/sec 96.0 cm/sec 126.9 cm/sec 4.7 mmHg MV A max malinda: MV P1/2t: 86.5 msec Ao max PG: LV V1 max: 59.3 cm/sec MVA(P1/2t): 2.5 cm2 6.4 mmHg 108.7 cm/sec MV E/A: 1.4 MV dec slope: 325.0 cm/sec2 MV dec time: 0.17 sec PA V2 max: PI end-d malinda: TR max malinda: MV P1/2t-pr_phl: 116.0 cm/sec 147.4 cm/sec 298.6 cm/sec 86.5 msec PA max PG: TR max P.4 mmHg 35.7 mmHg Left Ventricle The left ventricle is grossly normal size. Left ventricular systolic function is low normal. Doppler measurements suggest normal left ventricular diastolic function. There are regional wall motion abnormalities as specified. Right Ventricle The right ventricle is grossly normal size. There is normal right ventricular wall thickness. The right ventricular systolic function is normal. Atria The right atrium is normal in size. The left atrial size is normal. Interarterial septum not well visualized and not well dopplered. Cannot comment on ASD/PFO presence. Mitral Valve The mitral valve is grossly normal. There is no mitral valve stenosis. There is a trace amount of mitral regurgitation. Aortic Valve The aortic valve is grossly normal. There is no aortic valve stenosis. No aortic regurgitation is present. Tricuspid Valve The tricuspid valve is not well visualized, but is grossly normal. There is no tricuspid stenosis. There is a mild amount of tricuspid regurgitation. There is mild pulmonary hypertension by echo. Right ventricular systolic pressure is estimated to be elevated at 30-40mmHg. Pulmonic Valve The pulmonic valve is not well seen, but is grossly normal. There is no pulmonic valvular stenosis. There is a trace or physiologic amount of pulmonic regurgitation. Great Vessels The aortic root is not well visualized but is probably normal size. The inferior vena cava was not well visualized. Effusions There is no pericardial effusion. : SWATHI DAWKINS > Swathi Dawkins
[2018-08-23] MEDS: OXYCODONE HCL IR 5 MG TABLET PO PRN (18:38)
[2018-08-23] MEDS: METOPROLOL SUCCINATE 25 MG TAB.SR.24H PO SCH ×3 (18:39→21:23)
--- NOTE | 2018-08-23 19:21 | PDOC CONSULTATION ---
Consultation Consult Date: 08/23/18 Attending physician:: RUMA RUTH Consult reason:: Tachycardia History of Present Illness Admission Date/PCP: 08/21/18 13:21 YON MARCOS MD Patient complains of: Hip discomfort History of Present Illness: EMIL BARNES is a 28 year old male with a history of the sickle cell disease multiple hospital admissions several blood transfusion currently see a Dr. Jones for the sickle cell disease, currently dealing with the right femur fractures status post hardware placement by Dr. Marcos with ongoing infections. Patient has a history of tachycardia, this morning was noted to be severely tachycardic with EKG showing heart rate in the 160s. 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 Patient was earlier seen by public health aide who ordered amiodarone bolus and drip protocol. I was consulted at around 3 PM, when I gave verbal orders to start patient on IV Lopressor. Patient received 5 mg IV Lopressor every 5 minutes x2 following which his heart rate is stabilized between 100-110 range. Patient subsequently orders written for him to receive metoprolol succinate 12.5 mg p.o. now and then twice daily. Patient could also receive IV digoxin if needed. Will recommend that IV amiodarone could be stopped. Past Medical History Cardiac Medical History: Reports: Hypertension, Heart Murmur Denies: Atrial Fibrillation, Congestive Heart Failure, Coronary Artery Disease, Myocardial Infarction, Peripheral Vascular Disease, Pulmonary Embolism Pulmonary Medical History: Denies: Asthma, Bronchitis, Chronic Obstructive Pulmonary Disease (COPD), Pneumonia, Tuberculosis Neurological Medical History: Reports: Seizures - ON MEDS Endocrine Medical History: Denies: Hyperthyroidism, Hypothyroidism Malignancy Medical History: Denies: Leukemia, Lung Cancer GI Medical History: Reports: Gastroesophageal Reflux Disease Musculoskeltal Medical History: Reports: Arthritis Denies: Fibromyalgia Psychiatric Medical History: Reports: Depression Denies: Bipolar Disorder, Dementia Hematology: Reports: Anemia, Sickle Cell Disease, Bleeding Tendencies Denies: Hemophilia Infectious Medical History: Denies: HIV Past Surgical History Past Surgical History: Reports: Cholecystectomy, Orthopedic Surgery - Patient underwent open reduction internal fixation of bilateral proximal fe, Other - Patient tracheostomy and PEG tube placement [facility] 3 years Denies: Appendectomy, Coronary Artery Bypass Graft, Gastric Bypass Surgery, Herniorrhaphy, Pacemaker, Tonsillectomy Social History Information Source: Patient Smoking Status: Never Smoker Frequency of Alcohol Use: None Hx Recreational Drug Use: No Drugs: None Hx Prescription Drug Abuse: No - Advance Directive Resuscitation Status: Full Code Family History Family History: Hypertension, Other - Sickle cell disease and trait Parental Family History Reviewed: Yes Children Family History Reviewed: Yes Sibling(s) Family History Reviewed.: Yes Medication/Allergy Home Medications: Diclofenac Sodium [Voltaren 50 mg Tablet.dr] 50 mg PO Q12 08/21/18 Hydroxyurea [Hydrea 500 mg Capsule] 500 mg PO DAILY 08/21/18 Levetiracetam [Keppra 500 mg Tablet] 500 mg PO Q12 08/21/18 Megestrol Acetate [Megace 20 mg Tablet] 40 mg PO DAILY 08/21/18 Mirtazapine 7.5 mg PO QHS 08/21/18 Misoprostol [Cytotec 0.2 mg Tablet] 0.2 mcg PO Q12 08/21/18 Tamsulosin HCl [Flomax 0.4 mg Cap.sr] 0.4 mg PO QPM 08/21/18 Allergies/Adverse Reactions: No Known Drug Allergies Allergy (Unknown, Verified 08/16/18 12:41) Review of Systems Review of Systems: Please see history of present illness and past medical history as wall. Constitutional: No fever or chills reported. Head : No recent chronic headaches, recent head injury. Eyes: No recent eye pain, diplopia, redness, discharge, acute visual changes. Ears: No recent chronic ear pain, acute hearing loss, ear discharge. Oral cavity: No recent ulcerations, bleeding, oral cavity discomfort. Neck: No recent acute neck pain reported. Hematologic: No recent easy bruising or bleeding. History of sickle cell anemia receiving multiple blood transfusions. Lymphatic: No recent lymph node enlargement reported. Cardiovascular system review: See history of present illness. Respiratory system review: No hemoptysis or blood clots in the lungs reported. Mild Shortness of breath on exertion Gastrointestinal system review: Negative for any recent acute hematemesis, melena. Genitourinary system review: No recent acute or chronic hematuria, flank pain, UTI etc. reported. Skin system review: Negative for any recent abnormal bruising, no rash, no pruritus reported. Neurologic: No prior history of strokes, mini strokes, seizure disorder. Psychologic: No history of major psychosis or major depression reported. Musculoskeletal: Significant orthopedic problems resulting from accidents and other injuries. Please see HPI for details. Endocrine: No recent polyuria, polydipsia, recent heat or cold intolerance. Physical Exam Vital Signs: Temp Pulse Resp BP Pulse Ox 98.2 F 114 H 18 103/43 L 96 08/23/18 16:01 08/23/18 18:56 08/23/18 16:01 08/23/18 18:00 08/23/18 16:01 Intake & Output 08/22/18 08/23/18 08/24/18 06:59 06:59 06:59 Intake Total 1928 8700 1985 Output Total 1400 4800 1100 Balance 528 3900 885 Weight 49.6 kg 51.6 kg Exam: GENERAL: Thin built, possibly undernourished and in no acute distress. Alert and oriented x3 HEAD: Atraumatic, normocephalic. EYES: Pupils equal round and reactive to light, extraocular movements intact, sclera anicteric, conjunctiva are normal. ENT: TMs normal, nares patent, oropharynx clear without exudates. Moist mucous membranes. No oral ulcerations or bleeding gums noted NECK: supple without lymphadenopathy. Trachea is central. No cervical or axillary lymphadenopathy noted. Carotids are 2+, JVD WNL LUNGS: Respiration seems nonlabored, no significant accessory muscle action noted. R basal crackles noted. No wheezes rales or rhonchi noted. No significant dullness noted on percussion. CHEST: Palpation of the chest wall shows no significant chest wall tenderness. HEART: [employer] DOCTOR, No PSH, 1/6 CL[place] aortic area, 1/6 su systolic murmur mitral area, no rubs, no gallops. ABDOMEN: Soft, no significant tenderness appreciated, normoactive bowel sounds. No guarding, no rebound. No rigidity noted . No masses appreciated. EXTREMITIES: Pedal pulses are 1-2+, no calf tenderness noted. No clubbing or cyanosis. negative pedal edema noted NEUROLOGICAL: Focused neurological exam showed showed generalized weakness with left upper extremity and left lower extremity more weak. There is some chronic muscle loss signs noted. PSYCH: Normal mood, normal affect. Judgment and insight within normal limits. SKIN: No significant ecchymosis, skin is noted to be warm. MUSCULOSKELETAL EXAM: Deferred to orthopedic surgeon. Results Laboratory Results: 08/23/18 04:09 08/23/18 04:09 08/22/18 08/23/18 08/23/18 17:30 04:09 04:09 WBC 17.4 H RBC 2.68 L Hgb 7.8 L Hct 22.4 L MCV 84 MCH 28.9 MCHC 34.6 RDW 16.0 H Plt Count 191 Seg Neutrophils % 67.3 Lymphocytes % 15.3 Monocytes % 15.9 H Eosinophils % 0.9 Basophils % 0.6 Absolute Neutrophils 11.7 H Absolute Lymphocytes 2.7 Absolute Monocytes 2.8 H Absolute Eosinophils 0.2 Absolute Basophils 0.1 Sodium 138.0 Potassium 4.3 Chloride 110 H Carbon Dioxide 22 Anion Gap 6 BUN 15 Creatinine 0.50 L Est GFR ( Amer) > 60 Est GFR (Non-Af Amer) > 60 Glucose 103 Calcium 8.2 L Blood Type A POSITIVE Antibody Screen NEGATIVE EKG Comments: Narrow complex tachycardia, possibly AVNRT Impressions: Abdomen Ultrasound 08/21/18 00:00 IMPRESSION: Limited examination in that the spleen was not adequately visualized. Otherwise unremarkable sonographic appearance of the abdomen. Femur X-Ray 08/21/18 11:01 IMPRESSION: Since the prior study patient has undergone a revision of the right hip hardware. No gross re- fracture. Pelvis X-Ray 08/22/18 10:36 IMPRESSION: Status post bilateral total hip replacements. Other findings as noted above. Chest X-Ray 08/23/18 00:00 IMPRESSION: Right lower lobe consolidation worrisome for pneumonia. Small right pleural effusion Assessment & Plan - Diagnosis (1) Supraventricular tachycardia Is this a current diagnosis for this admission?: Yes (2) Sickle cell anemia Qualifiers: Sickle-cell associated disorders: without crisis Qualified Code(s): D57.1 - 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 Is this a current diagnosis for this admission?: Yes (3) Pulmonary hypertension Is this a current diagnosis for this admission?: Yes - Notes Notes: Supraventricular tachycardia: Start beta-beltran. Patient on metoprolol succinate 12.5 mg p.o. twice daily, could be increased to 25 p.o. twice daily as tolerated. Orders were given for patient to receive Lopressor 5 mg q. 5 minutes x3 or until heart rate came below 110. It seems patient just received 2 doses following which his heart rate remained stable. Patient noted to have mild sinus tachycardia. 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 Pulmonary hypertension: Noted on 2D echocardiogram. 2D echo also shows normal LVEF. It also showed borderline enlarged RV which was probably not mentioned in the official report. Patient has sickle cell disease and also has been basically bedbound. Feel that pulmonary hypertension with embolism would need to be ruled out. Recommend CTA of the chest. If negative may actually also consider venous duplex of the lower extremity. Patient currently on DVT prophylaxis dose of Lovenox. Sinus tachycardia: This was noted after patient converted to sinus rhythm. This is most likely physiological in response to anemia, pain etc. Currently heart rate although slightly tachycardic stable. As usual I thank Dr. Ruth very much for the kind consultation. - Time Time Spent: 30 to 50 Minutes - More than 50% of the time spent coordinating care , discussing management plans with involved caregivers. Management plans discussed with involved personnels. Medical decision making was of moderate to high complexity, patient's has multiple comorbidities. Medications reviewed and adjusted accordingly: Yes
--- NOTE | 2018-08-23 20:33 | RADIOLOGY REPORT (SQ) ---
EXAM DESCRIPTION: CTA CHEST COMPLETED DATE/TIME: 08/23/2018 8:09 pm REASON FOR STUDY: Pulm HTN, Tachycardia COMPARISON: 05/14/2013 TECHNIQUE: CT scan of the chest performed using helical scanning technique with dynamic intravenous contrast injection. Images reviewed with lung, soft tissue and bone windows. Reconstructed coronal and sagittal MPR images reviewed. Additional 3 dimensional post-processing performed to develop Maximal Intensity Projection images (AL P). All images stored on PACS. All CT scanners at this facility use dose modulation, iterative reconstruction, and/or weight based d osing when appropriate to reduce radiation dose to as low as reasonably achievable (ALARA). [facility]: Dose Right [facility]: CareDose [facility]: Dose Right [facility]: Teradose 4D [facility]: [employer] CONTRAST TYPE AND DOSE: 56 mL Omnipaque 350- low osmolar. Contrast bolus optimized for the pulmonary arteries. Not diagnostic for the aorta. RENAL FUNCTION: BUN 15 creatinine 0.5 RADIATION DOSE: CT Rad equipment meets quality standard of care and radiation dose reduction techniq ues were employed. CTDIvol: 9.9 - 14.3 mGy. DLP: 568 mGy-cm. . LIMITATIONS: None. FINDINGS: LUNGS AND PLEURA: Small right pleural effusion. Dense opacification in the right lower lo be. There are some air bronchograms. AORTA AND GREAT VESSELS: No aneurysm. Contrast bolus not optimized for the aorta. HEART: No pericardial effusion. No significant coronary artery calcifications. PULMONARY ARTERIES: No emboli visualized in the main pulmonary arteries or the segmental branches. HILAR AND MEDIASTINAL STRUCTURES: No identified masses or abnormal nodes. HARDWARE: None in the chest. UPPER ABDOMEN: No significant findings. Limited exam. THYROID AND OTHER SOFT TISSUES: No masses. No adenopathy. BONES: No acute or significant finding. 3D MIPS: Confirm above findings. OTHER: No other significant finding. IMPRESSION: 1. There is no evidence of pulmonary emboli. 2. Right lower lobe consolidation. Small right pleural effusion. COMMENT: Quality ID # [id number]: Final reports with documentation of one or more dose reduction techniques (e.g., Automated exposure control, adjustment of the mA and/or kV according to patient size, use of iterative reconstruction technique) TECHNICAL DOCUMENTATION: JOB ID: [id number] [employer]- All Rights Reserved Reading location - IP/workstation name: [email or web address]
--- NOTE | 2018-08-23 21:02 | EKG REPORT ---
SEVERITY:- OTHERWISE NORMAL ECG - SINUS TACHYCARDIA VS SVT : Confirmed by: Swathi Palomares 23-Aug-2018 21:02:20
--- NOTE | 2018-08-23 21:02 | EKG REPORT ---
SEVERITY:- OTHERWISE NORMAL ECG - SINUS TACHYCARDIA : Confirmed by: Swathi Palomares 23-Aug-2018 21:01:53
[2018-08-23] MEDS: MIRTAZAPINE 15 MG TABLET PO SCH (21:20)
--- NOTE | 2018-08-23 21:28 | PDOC PROGRESS REPORT ---
Subjective Progress Note for:: 08/23/18 Subjective:: Patient developed narrow complex tachycardia with associated low blood pressure , was treated with amiodarone, consultation requested from cardiology, CTA chest was done that showed right lower lobe pneumonia Reason For Visit: RIGHT HIP PERIPROSTHETIC INFECTION Physical Exam Vital Signs: Temp Pulse Resp BP Pulse Ox 101.7 F H 114 H 20 111/55 L 94 08/23/18 20:26 08/23/18 21:00 08/23/18 20:26 08/23/18 21:00 08/23/18 20:26 Intake & Output 08/22/18 08/23/18 08/24/18 06:59 06:59 06:59 Intake Total 1928 8700 1985 Output Total 1400 4800 1100 Balance 528 3900 885 Weight 49.6 kg 51.6 kg General appearance: PRESENT: no acute distress Eye exam: PRESENT: PERRLA Respiratory exam: PRESENT: rhonchi Cardiovascular exam: PRESENT: +S1, +S2 GI/Abdominal exam: PRESENT: soft Neurological exam: PRESENT: alert Results Laboratory Results: 08/23/18 04:09 08/23/18 04:09 08/22/18 08/23/18 08/23/18 17:30 04:09 04:09 WBC 17.4 H RBC 2.68 L Hgb 7.8 L Hct 22.4 L MCV 84 MCH 28.9 MCHC 34.6 RDW 16.0 H Plt Count 191 Seg Neutrophils % 67.3 Lymphocytes % 15.3 Monocytes % 15.9 H Eosinophils % 0.9 Basophils % 0.6 Absolute Neutrophils 11.7 H Absolute Lymphocytes 2.7 Absolute Monocytes 2.8 H Absolute Eosinophils 0.2 Absolute Basophils 0.1 Sodium 138.0 Potassium 4.3 Chloride 110 H Carbon Dioxide 22 Anion Gap 6 BUN 15 Creatinine 0.50 L Est GFR ( Amer) > 60 Est GFR (Non-Af Amer) > 60 Glucose 103 Calcium 8.2 L Blood Type A POSITIVE Antibody Screen NEGATIVE Impressions: Abdomen Ultrasound 08/21/18 00:00 IMPRESSION: Limited examination in that the spleen was not adequately visualized. Otherwise unremarkable sonographic appearance of the abdomen. Femur X-Ray 08/21/18 11:01 IMPRESSION: Since the prior study patient has undergone a revision of the right hip hardware. No gross re- fracture. Pelvis X-Ray 08/22/18 10:36 IMPRESSION: Status post bilateral total hip replacements. Other findings as noted above. Chest X-Ray 08/23/18 00:00 IMPRESSION: Right lower lobe consolidation worrisome for pneumonia. Small right pleural effusion Chest/Abdomen CTA 08/23/18 18:00 IMPRESSION: 1. There is no evidence of pulmonary emboli. 2. Right lower lobe consolidation. Small right pleural effusion. Assessment & Plan - Diagnosis (1) Sickle cell hemolytic anemia Qualifiers: Sickle-cell associated disorders: with unspecified crisis Qualified Code(s) : D57.00 - Hb-SS disease with crisis, unspecified; D57.0 - Hb-SS disease with crisis Is this a current diagnosis for this admission?: Yes (2) Infected prosthesis of right hip Qualifiers: Encounter type: initial encounter Qualified Code(s): T84.51XA - Infection and inflammatory reaction due to internal right hip prosthesis, initial encounter Is this a current diagnosis for this admission?: Yes (3) Status post total replacement of right hip Is this a current diagnosis for this admission?: Yes (4) Right lower lobe pneumonia Qualifiers: Pneumonia type: due to unspecified organism Qualified Code(s): J18.1 - Lobar pneumonia, unspecified organism Is this a current diagnosis for this admission?: Yes Plan: Continue IV vancomycin and Levaquin (5) Supraventricular tachycardia Is this a current diagnosis for this admission?: Yes Plan: Continue metoprolol
[2018-08-24] MEDS: LANSOPRAZOLE 30 MG TAB.RAP.DR PO SCH (05:06)
[2018-08-24 05:07] LABS: ABSOLUTE BASOPHILS # (AUTO) 0.1 10^3/uL (0.0-0.2); ABSOLUTE EOSINOPHILS # (AUTO) 0.4 10^3/uL (0.0-0.6); ABSOLUTE LYMPHOCYTES (AUTO) 3.1 10^3/uL (0.5-4.7); ABSOLUTE MONOCYTES (AUTO) 2.3 10^3/uL (0.1-1.4); ABSOLUTE NEUT (AUTO) 13.1 10^3/uL (1.7-8.2); BASOPHILS % (AUTO) 0.6 % (0-2); EOSINOPHILS % (AUTO) 2.3 % (0-6); HEMATOCRIT 17.9 % (37.9-51.0); LYMPHOCYTES % (AUTO) 16.1 % (13-45); MEAN CORPUSCULAR HEMOGLOBIN 29.4 pg (27.0-33.4); MEAN CORPUSCULAR HGB CONC 35.1 g/dL (32.0-36.0); MEAN CORPUSCULAR VOLUME 84 fl (80-97); PLATELET COUNT 191 10^3/uL (150-450); RED BLOOD COUNT 2.14 10^6/uL (4.35-5.55); RED CELL DISTRIBUTION WIDTH 16.2 % (11.5-14.0); TOTAL CELLS COUNTED % (AUTO) 100 %
[2018-08-24 05:12] LABS: HEMOGLOBIN 6.3 g/dL (13.5-17.0)
[2018-08-24 05:29] LABS: BLOOD UREA NITROGEN 20 mg/dL (7-20); CALCIUM 8.1 mg/dL (8.4-10.2); GLUCOSE 103 mg/dL (75-110); POTASSIUM 4.1 mmol/L (3.6-5.0)
[2018-08-24] MEDS: RINGERS SOLUTION,LACTATED 1,000 ML IV PRN ×2 (05:30→17:13)
[2018-08-24 05:35] LABS: ANION GAP 5 (5-19); CARBON DIOXIDE 24 mmol/L (22-30); CHLORIDE 112 mmol/L (98-107)
--- NOTE | 2018-08-24 07:19 | PDOC PROGRESS REPORT ---
Subjective Progress Note for:: 08/24/18 Reason For Visit: RIGHT HIP PERIPROSTHETIC INFECTION 28-year-old black male with sickle cell disease now postop day 2 status post right hip conversion arthroplasty. Patient had no physical therapy yesterday because of intermittent tachycardia. 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 Physical Exam Vital Signs: Temp Pulse Resp BP Pulse Ox 37.1 C 110 H 20 99/50 L 95 08/24/18 03:25 08/24/18 06:59 08/24/18 03:25 08/24/18 03:25 08/24/18 03:25 Intake & Output 08/23/18 08/24/18 08/25/18 06:59 06:59 06:59 Intake Total 8700 4260 Output Total 4800 1250 Balance 3900 3010 Weight 51.6 kg 57.5 kg General appearance: PRESENT: no acute distress, thin Head exam: PRESENT: normocephalic Respiratory exam: PRESENT: unlabored Cardiovascular exam: PRESENT: RRR Pulses: PRESENT: +1 pedal pulses bilateral Vascular exam: PRESENT: normal capillary refill GI/Abdominal exam: PRESENT: soft Rectal exam: PRESENT: deferred Extremities exam: PRESENT: other - Right hip dressing clean dry and intact. Leg lengths are equal. Distal neurovascular examination is intact. Neurological exam: PRESENT: alert, awake, oriented to person, oriented to place , oriented to time, oriented to situation. ABSENT: motor sensory deficit Psychiatric exam: PRESENT: appropriate affect, normal mood. ABSENT: homicidal ideation, suicidal ideation Skin exam: PRESENT: dry, intact, warm. ABSENT: cyanosis, rash Results Laboratory Results: 08/24/18 04:08 08/24/18 04:08 08/24/18 08/24/18 04:08 04:08 WBC 19.0 H RBC 2.14 L Hgb 6.3 L Hct 17.9 L MCV 84 MCH 29.4 MCHC 35.1 RDW 16.2 H Plt Count 191 Seg Neutrophils % 69.0 Lymphocytes % 16.1 Monocytes % 12.0 Eosinophils % 2.3 Basophils % 0.6 Absolute Neutrophils 13.1 H Absolute Lymphocytes 3.1 Absolute Monocytes 2.3 H Absolute Eosinophils 0.4 Absolute Basophils 0.1 Sodium 141.0 Potassium 4.1 Chloride 112 H Carbon Dioxide 24 Anion Gap 5 BUN 20 Creatinine 0.68 Est GFR ( Amer) > 60 Est GFR (Non-Af Amer) > 60 Glucose 103 Calcium 8.1 L Impressions: Abdomen Ultrasound 08/21/18 00:00 IMPRESSION: Limited examination in that the spleen was not adequately visualized. Otherwise unremarkable sonographic appearance of the abdomen. Femur X-Ray 08/21/18 11:01 IMPRESSION: Since the prior study patient has undergone a revision of the right hip hardware. No gross re- fracture. Pelvis X-Ray 08/22/18 10:36 IMPRESSION: Status post bilateral total hip replacements. Other findings as noted above. Chest X-Ray 08/23/18 00:00 IMPRESSION: Right lower lobe consolidation worrisome for pneumonia. Small right pleural effusion Chest/Abdomen CTA 08/23/18 18:00 IMPRESSION: 1. There is no evidence of pulmonary emboli. 2. Right lower lobe consolidation. Small right pleural effusion. Status: Imported from PACS Assessment & Plan - Diagnosis (1) Status post total replacement of right hip Is this a current diagnosis for this admission?: Yes Plan: Patient status post conversion arthroplasty. Current intraoperative cultures remain no growth so far. Hematocrit has decreased to 17% and 2 units of packed red blood cells have been ordered. Plan for ongoing physical therapy today and anticipate the need for long term facility placement. (2) Acute blood loss as cause of postoperative anemia Is this a current diagnosis for this admission?: Yes Plan: Hematocrit is dropped to 17%. I do not think this is etiologic in terms of the patient's tachycardia which sounds as if it is paroxysmal atrial tachycardia. Plan for 2 units of packed red blood cells. - Time Time Spent with patient: 15-24 minutes Anticipated discharge: SNF Within: when bed available
[2018-08-24] MEDS: ACETAMINOPHEN 325 MG TABLET PO PRN ×2 (08:00→15:02)
[2018-08-24] MEDS: HYDROMORPHONE HCL INJ/PF 2 MG/ML AMPULE IV PRN ×4 (08:08→17:10)
--- NOTE | 2018-08-24 10:46 | EKG REPORT ---
SEVERITY:- OTHERWISE NORMAL ECG - SINUS TACHYCARDIA : Confirmed by: Swathi Palomares 24-Aug-2018 10:44:51
[2018-08-24] MEDS: ASPIRIN 81 MG TABLET, ENT COATED PO SCH (11:29)
[2018-08-24] MEDS: PREGABALIN 75 MG CAPSULE PO SCH ×2 (11:29→21:05)
[2018-08-24] MEDS: DOCUSATE SODIUM 100 MG CAPSULE PO SCH ×2 (11:29→17:10)
[2018-08-24] MEDS: MISOPROSTOL 0.2 MG TABLET PO SCH ×2 (11:30→21:07)
[2018-08-24] MEDS: METOPROLOL SUCCINATE 25 MG TAB.SR.24H PO SCH ×3 (11:30→21:05)
[2018-08-24] MEDS: HYDROXYUREA 500 MG CAPSULE PO SCH (11:31)
[2018-08-24] MEDS: MEGESTROL ACETATE 20 MG TABLET PO SCH (11:31)
[2018-08-24] MEDS: ENOXAPARIN SODIUM INJ 40 MG/0.4 ML DISP.SYRIN SUBCUT SCH (11:31)
[2018-08-24] MEDS: LEVETIRACETAM 500 MG TABLET PO SCH ×2 (11:32→21:06)
[2018-08-24] MEDS: ERTAPENEM SODIUM 1 GM in NORMAL SALINE 50 ML IV SCH (11:32)
[2018-08-24] MEDS: OXYCODONE HCL SR 10 MG TABLET PO SCH (11:35)
[2018-08-24] MEDS: OXYCODONE-ACETAMINOPHEN 5-325 MG TABLET PO PRN (12:23)
[2018-08-24] MEDS: OXYCODONE HCL IR 5 MG TABLET PO PRN (12:23)
[2018-08-24] MEDS: LEVOFLOXACIN 750 MG/D5W RTU 750 MG/150 ML RTUPB IV SCH (14:05)
[2018-08-24] MEDS: MORPHINE SULFATE 10 MG/ML INJ IV PRN (15:45)
--- NOTE | 2018-08-24 16:01 | PDOC PROGRESS REPORT ---
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 Reason For Visit: RIGHT HIP PERIPROSTHETIC INFECTION Physical Exam Vital Signs: Temp Pulse Resp BP Pulse Ox 99.7 F 112 H 16 106/53 L 98 08/24/18 15:13 08/24/18 15:13 08/24/18 15:13 08/24/18 15:13 08/24/18 15:13 Intake & Output 08/23/18 08/24/18 08/25/18 06:59 06:59 06:59 Intake Total 8700 4260 1350 Output Total 4800 1250 Balance 3900 3010 1350 Weight 51.6 kg 57.5 kg General appearance: PRESENT: no acute distress Eye exam: PRESENT: PERRLA Cardiovascular exam: PRESENT: +S1, +S2 GI/Abdominal exam: PRESENT: soft Neurological exam: PRESENT: alert Results Laboratory Results: 08/24/18 04:08 08/24/18 04:08 08/22/18 08/24/18 08/24/18 17:30 04:08 04:08 WBC 19.0 H RBC 2.14 L Hgb 6.3 L Hct 17.9 L MCV 84 MCH 29.4 MCHC 35.1 RDW 16.2 H Plt Count 191 Seg Neutrophils % 69.0 Lymphocytes % 16.1 Monocytes % 12.0 Eosinophils % 2.3 Basophils % 0.6 Absolute Neutrophils 13.1 H Absolute Lymphocytes 3.1 Absolute Monocytes 2.3 H Absolute Eosinophils 0.4 Absolute Basophils 0.1 Sodium 141.0 Potassium 4.1 Chloride 112 H Carbon Dioxide 24 Anion Gap 5 BUN 20 Creatinine 0.68 Est GFR ( Amer) > 60 Est GFR (Non-Af Amer) > 60 Glucose 103 Calcium 8.1 L Blood Type A POSITIVE Antibody Screen NEGATIVE Impressions: Abdomen Ultrasound 08/21/18 00:00 IMPRESSION: Limited examination in that the spleen was not adequately visualized. Otherwise unremarkable sonographic appearance of the abdomen. Femur X-Ray 08/21/18 11:01 IMPRESSION: Since the prior study patient has undergone a revision of the right hip hardware. No gross re- fracture. Pelvis X-Ray 08/22/18 10:36 IMPRESSION: Status post bilateral total hip replacements. Other findings as noted above. Chest X-Ray 08/23/18 00:00 IMPRESSION: Right lower lobe consolidation worrisome for pneumonia. Small right pleural effusion Chest/Abdomen CTA 08/23/18 18:00 IMPRESSION: 1. There is no evidence of pulmonary emboli. 2. Right lower lobe consolidation. Small right pleural effusion. Assessment & Plan - Diagnosis (1) Sickle cell hemolytic anemia Qualifiers: Sickle-cell associated disorders: with unspecified crisis Qualified Code(s) : D57.00 - Hb-SS disease with crisis, unspecified; D57.0 - Hb-SS disease with crisis Is this a current diagnosis for this admission?: Yes (2) Infected prosthesis of right hip Qualifiers: Encounter type: initial encounter Qualified Code(s): T84.51XA - Infection and inflammatory reaction due to internal right hip prosthesis, initial encounter Is this a current diagnosis for this admission?: Yes (3) Status post total replacement of right hip Is this a current diagnosis for this admission?: Yes (4) Right lower lobe pneumonia Qualifiers: Pneumonia type: due to unspecified organism Qualified Code(s): J18.1 - Lobar pneumonia, unspecified organism Is this a current diagnosis for this admission?: Yes (5) Supraventricular tachycardia Is this a current diagnosis for this admission?: Yes
[2018-08-24] MEDS: TAMSULOSIN HCL 0.4 MG CAP.SR.24H PO SCH (17:10)
[2018-08-24 19:46] LABS: ABSOLUTE EOSINOPHILS # (AUTO) 0.4 10^3/uL (0.0-0.6); ABSOLUTE LYMPHOCYTES (AUTO) 2.4 10^3/uL (0.5-4.7); ABSOLUTE NEUT (AUTO) 14.6 10^3/uL (1.7-8.2); BASOPHILS % (AUTO) 0.3 % (0-2); EOSINOPHILS % (AUTO) 2.1 % (0-6); HEMATOCRIT 23.3 % (37.9-51.0); HEMOGLOBIN 8.1 g/dL (13.5-17.0); LYMPHOCYTES % (AUTO) 12.5 % (13-45); MEAN CORPUSCULAR HEMOGLOBIN 30.2 pg (27.0-33.4); MEAN CORPUSCULAR HGB CONC 34.6 g/dL (32.0-36.0); MEAN CORPUSCULAR VOLUME 87 fl (80-97); MONOCYTES % (AUTO) 10.3 % (3-13); PLATELET COUNT 195 10^3/uL (150-450); RED BLOOD COUNT 2.67 10^6/uL (4.35-5.55); RED CELL DISTRIBUTION WIDTH 16.1 % (11.5-14.0); SEGMENTED NEUTROPHILS % (AUTO) 74.8 % (42-78); TOTAL CELLS COUNTED % (AUTO) 100 %; WHITE BLOOD COUNT 19.5 10^3/uL (4.0-10.5)
[2018-08-24] MEDS: MIRTAZAPINE 15 MG TABLET PO SCH (21:04)
--- NOTE | 2018-08-24 21:38 | PDOC PROGRESS REPORT ---
Subjective Progress Note for:: 08/24/18 Subjective:: Patient seems to be doing better. No further episodes of tachycardia or SVT noted. Pt is denying any chest arm or neck discomfort. Patient denying any PND , orthopnea. Patient denied any sustained palpitations, dizziness, syncope, near syncope. Patient denying any fever chills. Patient denying any other significant discomfort. Patient is maintaining sinus rhythm. Review of systems: Rest review of systems negative. Medications: Medications have been reviewed. Reason For Visit: RIGHT HIP PERIPROSTHETIC INFECTION Physical Exam Vital Signs: Temp Pulse Resp BP Pulse Ox 98.5 F 107 H 20 111/57 L 96 08/24/18 20:12 08/24/18 20:24 08/24/18 20:12 08/24/18 20:12 08/24/18 20:12 Intake & Output 08/23/18 08/24/18 08/25/18 06:59 06:59 06:59 Intake Total 8700 4260 2444 Output Total 4800 1250 550 Balance 3900 3010 1894 Weight 51.6 kg 57.5 kg Exam: GENERAL: well-nourished and in no acute distress. Alert and oriented x3 HEAD: Atraumatic, normocephalic. EYES: Pupils equal round and reactive to light, extraocular movements intact, sclera anicteric, conjunctiva are normal. ENT: TMs normal, nares patent, oropharynx clear without exudates. Moist mucous membranes. No oral ulcerations or bleeding gums noted NECK: supple without lymphadenopathy. Trachea is central. No cervical or axillary lymphadenopathy noted. Carotids are 2+, JVD WNL LUNGS: Respiration seems nonlabored, no significant accessory muscle action noted. Right basal crackles are noted. No wheezes rales or rhonchi noted. No significant dullness noted on percussion. CHEST: Palpation of the chest wall shows no significant chest wall tenderness. HEART: [place] [employer], No PSH, 1/6 CL[place]ORD aortic area, 1/6 su systolic murmur mitral area, no rubs, no gallops. ABDOMEN: Soft, no significant tenderness appreciated, normoactive bowel sounds. No guarding, no rebound. No rigidity noted . No masses appreciated. EXTREMITIES: Pedal pulses are 1-2+, no calf tenderness noted. No clubbing or cyanosis. negative pedal edema noted NEUROLOGICAL: Focused neurological exam showed bilateral weak lower extremities , left upper extremity also noted to be somewhat weaker. Normal speech, no focal weakness appreciated. PSYCH: Normal mood, normal affect. Judgment and insight within normal limits. SKIN: No significant ecchymosis, skin is noted to be warm. MUSCULOSKELETAL EXAM: Possibly weak bilateral lower extremities. Exam being deferred to urologist Results Laboratory Results: 08/24/18 19:30 08/24/18 04:08 08/22/18 08/24/18 08/24/18 17:30 04:08 04:08 WBC 19.0 H RBC 2.14 L Hgb 6.3 L Hct 17.9 L MCV 84 MCH 29.4 MCHC 35.1 RDW 16.2 H Plt Count 191 Seg Neutrophils % 69.0 Lymphocytes % 16.1 Monocytes % 12.0 Eosinophils % 2.3 Basophils % 0.6 Absolute Neutrophils 13.1 H Absolute Lymphocytes 3.1 Absolute Monocytes 2.3 H Absolute Eosinophils 0.4 Absolute Basophils 0.1 Sodium 141.0 Potassium 4.1 Chloride 112 H Carbon Dioxide 24 Anion Gap 5 BUN 20 Creatinine 0.68 Est GFR ( Amer) > 60 Est GFR (Non-Af Amer) > 60 Glucose 103 Calcium 8.1 L Blood Type A POSITIVE Antibody Screen NEGATIVE 08/24/18 19:30 WBC 19.5 H RBC 2.67 L Hgb 8.1 L Hct 23.3 L MCV 87 MCH 30.2 MCHC 34.6 RDW 16.1 H Plt Count 195 Seg Neutrophils % 74.8 Lymphocytes % 12.5 L Monocytes % 10.3 Eosinophils % 2.1 Basophils % 0.3 Absolute Neutrophils 14.6 H Absolute Lymphocytes 2.4 Absolute Monocytes 2.0 H Absolute Eosinophils 0.4 Absolute Basophils 0.0 Sodium Potassium Chloride Carbon Dioxide Anion Gap BUN Creatinine Est GFR ( Amer) Est GFR (Non-Af Amer) Glucose Calcium Blood Type Antibody Screen EKG Comments: Telemetry shows sinus rhythm. Mild intermittent sinus tachycardia noted. Impressions: Abdomen Ultrasound 08/21/18 00:00 IMPRESSION: Limited examination in that the spleen was not adequately visualized. Otherwise unremarkable sonographic appearance of the abdomen. Femur X-Ray 08/21/18 11:01 IMPRESSION: Since the prior study patient has undergone a revision of the right hip hardware. No gross re- fracture. Pelvis X-Ray 08/22/18 10:36 IMPRESSION: Status post bilateral total hip replacements. Other findings as noted above. Chest X-Ray 08/23/18 00:00 IMPRESSION: Right lower lobe consolidation worrisome for pneumonia. Small right pleural effusion Chest/Abdomen CTA 08/23/18 18:00 IMPRESSION: 1. There is no evidence of pulmonary emboli. 2. Right lower lobe consolidation. Small right pleural effusion. Assessment & Plan - Diagnosis (1) Supraventricular tachycardia Is this a current diagnosis for this admission?: Yes (2) Sickle cell anemia Qualifiers: Sickle-cell associated disorders: without crisis Qualified Code(s): D57.1 - 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 Is this a current diagnosis for this admission?: Yes (3) Pulmonary hypertension Is this a current diagnosis for this admission?: Yes - Notes Notes: Stop amiodarone drip. Continue with beta-beltran therapy. Patient heart rate has been noted to be more stable. Patient has some baseline sinus tachycardia most likely related to anemia, pain, other metabolic reasons. It seems patient will probably get some blood transfusion. Patient reasonably stable. We will continue to follow as beta-beltran dose may need to be increased. - Time Time with patient: 15-25 minutes - More than 50% of the time spent coordinating care, discussing management plans with involved caregivers. Management plans discussed with involved personnels. Medical decision making was of moderate to high complexity, patient's has multiple comorbidities. Medications reviewed and adjusted accordingly: Yes
[2018-08-25] MEDS: RINGERS SOLUTION,LACTATED 1,000 ML IV PRN ×2 (01:35→09:23)
[2018-08-25] MEDS: HYDROMORPHONE HCL INJ/PF 2 MG/ML AMPULE IV PRN ×3 (04:29→21:17)
[2018-08-25] MEDS: LANSOPRAZOLE 30 MG TAB.RAP.DR PO SCH (05:06)
[2018-08-25 05:22] LABS: HEMATOCRIT 22.4 % (37.9-51.0); MEAN CORPUSCULAR HEMOGLOBIN 30.1 pg (27.0-33.4); MEAN CORPUSCULAR HGB CONC 34.6 g/dL (32.0-36.0); MEAN CORPUSCULAR VOLUME 87 fl (80-97); PLATELET COUNT 221 10^3/uL (150-450); RED BLOOD COUNT 2.58 10^6/uL (4.35-5.55); WHITE BLOOD COUNT 17.9 10^3/uL (4.0-10.5)
[2018-08-25 05:26] LABS: HEMOGLOBIN 7.8 g/dL (13.5-17.0)
--- NOTE | 2018-08-25 07:22 | PDOC PROGRESS REPORT ---
Subjective Progress Note for:: 08/25/18 Reason For Visit: RIGHT HIP PERIPROSTHETIC INFECTION 28-year-old black male with sickle cell disease status post conversion arthroplasty of the right hip with an uneventful postoperative course. Limited progress with physical therapy yesterday. Patient received 2 units of packed red blood cells which increased his hematocrit. Physical Exam Vital Signs: Temp Pulse Resp BP Pulse Ox 36.9 C 110 H 20 120/60 95 08/25/18 03:19 08/25/18 03:19 08/25/18 03:19 08/25/18 03:19 08/25/18 03:19 Intake & Output 08/24/18 08/25/18 08/26/18 06:59 06:59 06:59 Intake Total 4260 3666 Output Total 1250 550 Balance 3010 3116 Weight 57.5 kg 58.6 kg General appearance: PRESENT: no acute distress, thin Extremities exam: PRESENT: other - Right hip dressing clean dry and intact. Leg lengths are equal. Distal capillary refill is intact. Results Laboratory Results: 08/25/18 04:14 08/24/18 04:08 08/22/18 08/24/18 08/25/18 17:30 19:30 04:14 WBC 19.5 H 17.9 H RBC 2.67 L 2.58 L Hgb 8.1 L 7.8 L Hct 23.3 L 22.4 L MCV 87 87 MCH 30.2 30.1 MCHC 34.6 34.6 RDW 16.1 H 16.0 H Plt Count 195 221 Seg Neutrophils % 74.8 Lymphocytes % 12.5 L Monocytes % 10.3 Eosinophils % 2.1 Basophils % 0.3 Absolute Neutrophils 14.6 H Absolute Lymphocytes 2.4 Absolute Monocytes 2.0 H Absolute Eosinophils 0.4 Absolute Basophils 0.0 Blood Type A POSITIVE Antibody Screen NEGATIVE Impressions: Abdomen Ultrasound 08/21/18 00:00 IMPRESSION: Limited examination in that the spleen was not adequately visualized. Otherwise unremarkable sonographic appearance of the abdomen. Femur X-Ray 08/21/18 11:01 IMPRESSION: Since the prior study patient has undergone a revision of the right hip hardware. No gross re- fracture. Pelvis X-Ray 08/22/18 10:36 IMPRESSION: Status post bilateral total hip replacements. Other findings as noted above. Chest X-Ray 08/23/18 00:00 IMPRESSION: Right lower lobe consolidation worrisome for pneumonia. Small right pleural effusion Chest/Abdomen CTA 08/23/18 18:00 IMPRESSION: 1. There is no evidence of pulmonary emboli. 2. Right lower lobe consolidation. Small right pleural effusion. Status: Imported from PACS Assessment & Plan - Diagnosis (1) Status post total replacement of right hip Is this a current diagnosis for this admission?: Yes Plan: Stable limited progress with physical therapy (2) Acute blood loss as cause of postoperative anemia Is this a current diagnosis for this admission?: Yes Plan: Stable hematocrit increased to 22.4% after 2 units of packed red blood cells - Time Time Spent with patient: 15-24 minutes Anticipated discharge: SNF Within: when bed available - Patient can be transferred to a long-term facility when bed available
[2018-08-25] MEDS: ACETAMINOPHEN 325 MG TABLET PO PRN (08:48)
[2018-08-25] MEDS: HYDROXYUREA 500 MG CAPSULE PO SCH (09:14)
[2018-08-25] MEDS: ERTAPENEM SODIUM 1 GM in NORMAL SALINE 50 ML IV SCH (09:14)
[2018-08-25] MEDS: LEVETIRACETAM 500 MG TABLET PO SCH ×2 (09:15→21:19)
[2018-08-25] MEDS: PREGABALIN 75 MG CAPSULE PO SCH ×2 (09:15→21:18)
[2018-08-25] MEDS: METOPROLOL SUCCINATE 25 MG TAB.SR.24H PO SCH ×2 (09:15→21:18)
[2018-08-25] MEDS: DOCUSATE SODIUM 100 MG CAPSULE PO SCH ×2 (09:15→18:30)
[2018-08-25] MEDS: ENOXAPARIN SODIUM INJ 40 MG/0.4 ML DISP.SYRIN SUBCUT SCH (09:15)
[2018-08-25] MEDS: MEGESTROL ACETATE 20 MG TABLET PO SCH (09:15)
[2018-08-25] MEDS: MISOPROSTOL 0.2 MG TABLET PO SCH ×2 (09:15→21:19)
[2018-08-25] MEDS: ASPIRIN 81 MG TABLET, ENT COATED PO SCH (09:15)
[2018-08-25] MEDS: LEVOFLOXACIN 750 MG/D5W RTU 750 MG/150 ML RTUPB IV SCH (10:01)
[2018-08-25] MEDS: OXYCODONE HCL IR 5 MG TABLET PO PRN ×2 (10:06→23:26)
[2018-08-25] MEDS: OXYCODONE-ACETAMINOPHEN 5-325 MG TABLET PO PRN ×2 (10:07→23:27)
[2018-08-25] MEDS ORDERED: ONDANSETRON HCL INJ/PF 4 MG/2 ML SDV IV PRN (13:00)
[2018-08-25] MEDS ORDERED: ONDANSETRON 4 MG TAB.RAPDIS PO PRN (13:00)
[2018-08-25] MEDS: TAMSULOSIN HCL 0.4 MG CAP.SR.24H PO SCH (18:30)
[2018-08-25] MEDS: MIRTAZAPINE 15 MG TABLET PO SCH (21:17)
--- NOTE | 2018-08-25 21:28 | PDOC PROGRESS REPORT ---
Subjective Progress Note for:: 08/25/18 Subjective:: Patient is seen by the bedside, heavily sedated with opioid admitted for revision of right hip also have pneumonia, sickle cell disease with hemolysis, continue antibiotic Reason For Visit: RIGHT HIP PERIPROSTHETIC INFECTION Physical Exam Vital Signs: Temp Pulse Resp BP Pulse Ox 97.9 F 107 H 20 121/55 L 99 08/25/18 19:50 08/25/18 19:50 08/25/18 19:50 08/25/18 19:50 08/25/18 19:50 Intake & Output 08/24/18 08/25/18 08/26/18 06:59 06:59 06:59 Intake Total 4260 3666 2809 Output Total 1250 550 300 Balance 3010 3116 2509 Weight 57.5 kg 58.6 kg General appearance: PRESENT: no acute distress Eye exam: PRESENT: PERRLA Respiratory exam: PRESENT: clear to auscultation ishan Cardiovascular exam: PRESENT: +S1, +S2 GI/Abdominal exam: PRESENT: soft Neurological exam: PRESENT: alert Results Laboratory Results: 08/25/18 04:14 08/24/18 04:08 08/25/18 04:14 WBC 17.9 H RBC 2.58 L Hgb 7.8 L Hct 22.4 L MCV 87 MCH 30.1 MCHC 34.6 RDW 16.0 H Plt Count 221 Impressions: Abdomen Ultrasound 08/21/18 00:00 IMPRESSION: Limited examination in that the spleen was not adequately visualized. Otherwise unremarkable sonographic appearance of the abdomen. Femur X-Ray 08/21/18 11:01 IMPRESSION: Since the prior study patient has undergone a revision of the right hip hardware. No gross re- fracture. Pelvis X-Ray 08/22/18 10:36 IMPRESSION: Status post bilateral total hip replacements. Other findings as noted above. Chest X-Ray 08/23/18 00:00 IMPRESSION: Right lower lobe consolidation worrisome for pneumonia. Small right pleural effusion Chest/Abdomen CTA 08/23/18 18:00 IMPRESSION: 1. There is no evidence of pulmonary emboli. 2. Right lower lobe consolidation. Small right pleural effusion. Assessment & Plan - Diagnosis (1) Sickle cell hemolytic anemia Qualifiers: Sickle-cell associated disorders: with unspecified crisis Qualified Code(s) : D57.00 - Hb-SS disease with crisis, unspecified; D57.0 - Hb-SS disease with crisis Is this a current diagnosis for this admission?: Yes (2) Infected prosthesis of right hip Qualifiers: Encounter type: initial encounter Qualified Code(s): T84.51XA - Infection and inflammatory reaction due to internal right hip prosthesis, initial encounter Is this a current diagnosis for this admission?: Yes (3) Status post total replacement of right hip Is this a current diagnosis for this admission?: Yes (4) Right lower lobe pneumonia Qualifiers: Pneumonia type: due to unspecified organism Qualified Code(s): J18.1 - Lobar pneumonia, unspecified organism Is this a current diagnosis for this admission?: Yes (5) Supraventricular tachycardia Is this a current diagnosis for this admission?: Yes
--- NOTE | 2018-08-25 22:09 | PDOC PROGRESS REPORT ---
Subjective Progress Note for:: 08/25/18 Subjective:: Patient seems to be doing better. No further episodes of tachycardia or SVT noted. Pt is denying any chest arm or neck discomfort. Patient denying any PND , orthopnea. Patient denied any sustained palpitations, dizziness, syncope, near syncope. Patient denying any fever chills. Patient denying any other significant discomfort. Patient is maintaining sinus rhythm. Review of systems: Rest review of systems negative. Medications: Medications have been reviewed. Reason For Visit: RIGHT HIP PERIPROSTHETIC INFECTION Physical Exam Vital Signs: Temp Pulse Resp BP Pulse Ox 98.7 F 112 H 16 124/65 98 08/25/18 15:23 08/25/18 19:00 08/25/18 15:23 08/25/18 15:23 08/25/18 15:23 Intake & Output 08/24/18 08/25/18 08/26/18 06:59 06:59 06:59 Intake Total 4260 3666 1659 Output Total 1250 550 300 Balance 3010 3116 1359 Weight 57.5 kg 58.6 kg Exam: GENERAL: Thin built, possibly undernourished and in no acute distress. Alert and oriented x3 HEAD: Atraumatic, normocephalic. EYES: Pupils equal round and reactive to light, extraocular movements intact, sclera anicteric, conjunctiva are normal. ENT: TMs normal, nares patent, oropharynx clear without exudates. Moist mucous membranes. No oral ulcerations or bleeding gums noted NECK: supple without lymphadenopathy. Trachea is central. No cervical or axillary lymphadenopathy noted. Carotids are 2+, JVD WNL LUNGS: Respiration seems nonlabored, no significant accessory muscle action noted. R basal crackles noted. No wheezes rales or rhonchi noted. No significant dullness noted on percussion. CHEST: Palpation of the chest wall shows no significant chest wall tenderness. HEART: [place] [employer], No PSH, 1/6 [place] aortic area, 1/6 su systolic murmur mitral area, no rubs, no gallops. ABDOMEN: Soft, no significant tenderness appreciated, normoactive bowel sounds. No guarding, no rebound. No rigidity noted . No masses appreciated. EXTREMITIES: Pedal pulses are 1-2+, no calf tenderness noted. No clubbing or cyanosis. negative pedal edema noted NEUROLOGICAL: Focused neurological exam showed generalized mild muscle weakness with some atrophy, with increased left sided mild weakness. PSYCH: Normal mood, normal affect. Judgment and insight within normal limits. SKIN: No significant ecchymosis, skin is noted to be warm. MUSCULOSKELETAL EXAM: Deferred to orthopedic surgeon. Results Laboratory Results: 08/25/18 04:14 08/24/18 04:08 08/24/18 08/25/18 19:30 04:14 WBC 19.5 H 17.9 H RBC 2.67 L 2.58 L Hgb 8.1 L 7.8 L Hct 23.3 L 22.4 L MCV 87 87 MCH 30.2 30.1 MCHC 34.6 34.6 RDW 16.1 H 16.0 H Plt Count 195 221 Seg Neutrophils % 74.8 Lymphocytes % 12.5 L Monocytes % 10.3 Eosinophils % 2.1 Basophils % 0.3 Absolute Neutrophils 14.6 H Absolute Lymphocytes 2.4 Absolute Monocytes 2.0 H Absolute Eosinophils 0.4 Absolute Basophils 0.0 Impressions: Abdomen Ultrasound 08/21/18 00:00 IMPRESSION: Limited examination in that the spleen was not adequately visualized. Otherwise unremarkable sonographic appearance of the abdomen. Femur X-Ray 08/21/18 11:01 IMPRESSION: Since the prior study patient has undergone a revision of the right hip hardware. No gross re- fracture. Pelvis X-Ray 08/22/18 10:36 IMPRESSION: Status post bilateral total hip replacements. Other findings as noted above. Chest X-Ray 08/23/18 00:00 IMPRESSION: Right lower lobe consolidation worrisome for pneumonia. Small right pleural effusion Chest/Abdomen CTA 08/23/18 18:00 IMPRESSION: 1. There is no evidence of pulmonary emboli. 2. Right lower lobe consolidation. Small right pleural effusion. Assessment & Plan - Diagnosis (1) Supraventricular tachycardia Is this a current diagnosis for this admission?: Yes (2) Sickle cell anemia Qualifiers: Sickle-cell associated disorders: without crisis Qualified Code(s): D57.1 - 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 Is this a current diagnosis for this admission?: Yes (3) Pulmonary hypertension Is this a current diagnosis for this admission?: Yes (5) Sinus tachycardia Is this a current diagnosis for this admission?: Yes - Notes Notes: Continue patient on beta-beltran therapy. Dose can be increased as needed. Currently heart rate seems physiological. Patient tolerating beta-beltran therapy. Patient now off amiodarone therapy. Had opportunity to discuss cardiac status with patient's father. - Time Time with patient: 15-25 minutes - More than 50% of the time spent coordinating care, discussing management plans with involved caregivers. Management plans discussed with involved personnels. Medical decision making was of moderate to high complexity, patient's has multiple comorbidities. Medications reviewed and adjusted accordingly: Yes
[2018-08-26] MEDS: LANSOPRAZOLE 30 MG TAB.RAP.DR PO SCH (05:06)
--- NOTE | 2018-08-26 07:24 | PDOC PROGRESS REPORT ---
Subjective Progress Note for:: 08/26/18 Reason For Visit: RIGHT HIP PERIPROSTHETIC INFECTION 28-year-old black male status post right hip conversion conversion arthroplasty. Patient appears comfortable this morning. Physical Exam Vital Signs: Temp Pulse Resp BP Pulse Ox 37.1 C 104 H 16 119/63 98 08/26/18 04:03 08/26/18 04:03 08/26/18 04:03 08/26/18 04:03 08/26/18 04:03 Intake & Output 08/25/18 08/26/18 08/27/18 06:59 06:59 06:59 Intake Total 3666 2809 Output Total 550 300 Balance 3116 2509 Weight 58.6 kg 60.9 kg Extremities exam: PRESENT: other - Right hip wound is clean dry and intact. Leg lengths are equal. Results Laboratory Results: 08/25/18 04:14 08/24/18 04:08 Impressions: Abdomen Ultrasound 08/21/18 00:00 IMPRESSION: Limited examination in that the spleen was not adequately visualized. Otherwise unremarkable sonographic appearance of the abdomen. Femur X-Ray 08/21/18 11:01 IMPRESSION: Since the prior study patient has undergone a revision of the right hip hardware. No gross re- fracture. Pelvis X-Ray 08/22/18 10:36 IMPRESSION: Status post bilateral total hip replacements. Other findings as noted above. Chest X-Ray 08/23/18 00:00 IMPRESSION: Right lower lobe consolidation worrisome for pneumonia. Small right pleural effusion Chest/Abdomen CTA 08/23/18 18:00 IMPRESSION: 1. There is no evidence of pulmonary emboli. 2. Right lower lobe consolidation. Small right pleural effusion. Status: Imported from PACS Assessment & Plan - Diagnosis (1) Status post total replacement of right hip Is this a current diagnosis for this admission?: Yes Plan: Patient can continue to ambulate with physical therapy and weightbearing as tolerated basis. Transfer to long term facility per Dr. Fam (2) Acute blood loss as cause of postoperative anemia Is this a current diagnosis for this admission?: Yes - Time Time Spent with patient: 15-24 minutes Anticipated discharge: SNF Within: Other
[2018-08-26] MEDS: HYDROMORPHONE HCL INJ/PF 2 MG/ML AMPULE IV PRN (09:46)
[2018-08-26] MEDS: ERTAPENEM SODIUM 1 GM in NORMAL SALINE 50 ML IV SCH (09:46)
[2018-08-26] MEDS: DOCUSATE SODIUM 100 MG CAPSULE PO SCH ×2 (09:47→18:18)
[2018-08-26] MEDS: HYDROXYUREA 500 MG CAPSULE PO SCH (09:48)
[2018-08-26] MEDS: MEGESTROL ACETATE 20 MG TABLET PO SCH (09:48)
[2018-08-26] MEDS: METOPROLOL SUCCINATE 25 MG TAB.SR.24H PO SCH ×2 (09:48→21:42)
[2018-08-26] MEDS: LEVETIRACETAM 500 MG TABLET PO SCH ×2 (09:49→21:39)
[2018-08-26] MEDS: ENOXAPARIN SODIUM INJ 40 MG/0.4 ML DISP.SYRIN SUBCUT SCH (09:49)
[2018-08-26] MEDS: MISOPROSTOL 0.2 MG TABLET PO SCH ×2 (09:49→21:40)
[2018-08-26] MEDS: PREGABALIN 75 MG CAPSULE PO SCH ×2 (09:49→21:42)
[2018-08-26] MEDS: ASPIRIN 81 MG TABLET, ENT COATED PO SCH (09:49)
[2018-08-26] MEDS: LEVOFLOXACIN 750 MG/D5W RTU 750 MG/150 ML RTUPB IV SCH (11:48)
[2018-08-26] MEDS: OXYCODONE HCL IR 5 MG TABLET PO PRN (13:49)
[2018-08-26] MEDS: OXYCODONE-ACETAMINOPHEN 5-325 MG TABLET PO PRN (13:50)
[2018-08-26] MEDS: TAMSULOSIN HCL 0.4 MG CAP.SR.24H PO SCH (18:18)
--- NOTE | 2018-08-26 20:16 | PDOC PROGRESS REPORT ---
Subjective Progress Note for:: 08/26/18 Subjective:: Patient is seen by the bedside he continues to improve, hopefully transfer to skilled nursing this weekend Reason For Visit: RIGHT HIP PERIPROSTHETIC INFECTION Physical Exam Vital Signs: Temp Pulse Resp BP Pulse Ox 99.3 F 103 H 16 99/57 L 96 08/26/18 16:13 08/26/18 19:00 08/26/18 16:13 08/26/18 16:13 08/26/18 16:13 Intake & Output 08/25/18 08/26/18 08/27/18 06:59 06:59 06:59 Intake Total 3666 2809 250 Output Total 550 300 Balance 3116 2509 250 Weight 58.6 kg 60.9 kg General appearance: PRESENT: no acute distress Eye exam: PRESENT: PERRLA Respiratory exam: PRESENT: clear to auscultation ishan Cardiovascular exam: PRESENT: +S1, +S2 GI/Abdominal exam: PRESENT: soft Neurological exam: PRESENT: alert Results Laboratory Results: 08/25/18 04:14 08/24/18 04:08 08/21/18 14:35 Blood Blood Culture - Final NO GROWTH IN 5 DAYS 08/22/18 09:37 Hip - Right Gram Stain - Final 08/22/18 09:37 Hip - Right Wound Culture - Final NO AEROBIC OR ANAEROBIC ORGANISMS RECOVERED 08/22/18 09:37 Hip - Right Gram Stain - Final 08/22/18 09:37 Hip - Right Wound Culture - Final NO AEROBIC OR ANAEROBIC ORGANISMS RECOVERED Impressions: Abdomen Ultrasound 08/21/18 00:00 IMPRESSION: Limited examination in that the spleen was not adequately visualized. Otherwise unremarkable sonographic appearance of the abdomen. Femur X-Ray 08/21/18 11:01 IMPRESSION: Since the prior study patient has undergone a revision of the right hip hardware. No gross re- fracture. Pelvis X-Ray 08/22/18 10:36 IMPRESSION: Status post bilateral total hip replacements. Other findings as noted above. Chest X-Ray 08/23/18 00:00 IMPRESSION: Right lower lobe consolidation worrisome for pneumonia. Small right pleural effusion Chest/Abdomen CTA 08/23/18 18:00 IMPRESSION: 1. There is no evidence of pulmonary emboli. 2. Right lower lobe consolidation. Small right pleural effusion. Assessment & Plan - Diagnosis (1) Sickle cell hemolytic anemia Qualifiers: Sickle-cell associated disorders: with unspecified crisis Qualified Code(s) : D57.00 - Hb-SS disease with crisis, unspecified; D57.0 - Hb-SS disease with crisis Is this a current diagnosis for this admission?: Yes (2) Infected prosthesis of right hip Qualifiers: Encounter type: initial encounter Qualified Code(s): T84.51XA - Infection and inflammatory reaction due to internal right hip prosthesis, initial encounter Is this a current diagnosis for this admission?: Yes (3) Status post total replacement of right hip Is this a current diagnosis for this admission?: Yes (4) Right lower lobe pneumonia Qualifiers: Pneumonia type: due to unspecified organism Qualified Code(s): J18.1 - Lobar pneumonia, unspecified organism Is this a current diagnosis for this admission?: Yes (5) Supraventricular tachycardia Is this a current diagnosis for this admission?: Yes
[2018-08-26] MEDS: MIRTAZAPINE 15 MG TABLET PO SCH (21:43)
[2018-08-27] MEDS: OXYCODONE HCL IR 5 MG TABLET PO PRN ×3 (00:18→17:17)
[2018-08-27] MEDS: OXYCODONE-ACETAMINOPHEN 5-325 MG TABLET PO PRN ×3 (00:18→17:16)
[2018-08-27] MEDS: LANSOPRAZOLE 30 MG TAB.RAP.DR PO SCH (05:00)
--- NOTE | 2018-08-27 07:38 | PDOC PROGRESS REPORT ---
Subjective Progress Note for:: 08/27/18 Reason For Visit: RIGHT HIP PERIPROSTHETIC INFECTION Postop day 5 right hip conversion arthroplasty. Patient with a T-max last night of 38.0. No complaints today. Limited progress with physical therapy yesterday. Physical Exam Vital Signs: Temp Pulse Resp BP Pulse Ox 36.9 C 86 20 107/55 L 98 08/27/18 03:16 08/27/18 07:00 08/27/18 03:16 08/27/18 03:16 08/27/18 03:16 Intake & Output 08/26/18 08/27/18 08/28/18 06:59 06:59 06:59 Intake Total 2809 900 Output Total 300 0 Balance 2509 900 Weight 60.9 kg 55.7 kg General appearance: PRESENT: no acute distress Respiratory exam: PRESENT: unlabored Cardiovascular exam: PRESENT: RRR Pulses: PRESENT: +1 pedal pulses bilateral Vascular exam: PRESENT: normal capillary refill GI/Abdominal exam: PRESENT: soft Rectal exam: PRESENT: deferred Musculoskeletal exam: PRESENT: other - Right hip dressing clean dry and intact. To be changed by nurses this morning. Leg lengths equal. Abduction pillow in place. Distal neurovascular examination is intact. Results Laboratory Results: 08/25/18 04:14 08/24/18 04:08 08/21/18 14:35 Blood Blood Culture - Final NO GROWTH IN 5 DAYS 08/22/18 09:37 Hip - Right Gram Stain - Final 08/22/18 09:37 Hip - Right Wound Culture - Final NO AEROBIC OR ANAEROBIC ORGANISMS RECOVERED 08/22/18 09:37 Hip - Right Gram Stain - Final 08/22/18 09:37 Hip - Right Wound Culture - Final NO AEROBIC OR ANAEROBIC ORGANISMS RECOVERED Impressions: Abdomen Ultrasound 08/21/18 00:00 IMPRESSION: Limited examination in that the spleen was not adequately visualized. Otherwise unremarkable sonographic appearance of the abdomen. Femur X-Ray 08/21/18 11:01 IMPRESSION: Since the prior study patient has undergone a revision of the right hip hardware. No gross re- fracture. Pelvis X-Ray 08/22/18 10:36 IMPRESSION: Status post bilateral total hip replacements. Other findings as noted above. Chest X-Ray 08/23/18 00:00 IMPRESSION: Right lower lobe consolidation worrisome for pneumonia. Small right pleural effusion Chest/Abdomen CTA 08/23/18 18:00 IMPRESSION: 1. There is no evidence of pulmonary emboli. 2. Right lower lobe consolidation. Small right pleural effusion. Status: Imported from PACS Assessment & Plan - Diagnosis (1) Status post total replacement of right hip Is this a current diagnosis for this admission?: Yes Plan: Patient to continue with mobilization with physical therapy and weightbearing as tolerated basis. Plan for transfer to halfway facility when cleared by Dr. Fam (2) Acute blood loss as cause of postoperative anemia Is this a current diagnosis for this admission?: Yes - Time Time Spent with patient: 15-24 minutes Anticipated discharge: SNF Within: Other
[2018-08-27] MEDS: HYDROMORPHONE HCL INJ/PF 2 MG/ML AMPULE IV PRN ×3 (08:43→21:24)
[2018-08-27] MEDS: ERTAPENEM SODIUM 1 GM in NORMAL SALINE 50 ML IV SCH (10:19)
[2018-08-27] MEDS: ASPIRIN 81 MG TABLET, ENT COATED PO SCH (10:23)
[2018-08-27] MEDS: LEVETIRACETAM 500 MG TABLET PO SCH ×2 (10:23→21:24)
[2018-08-27] MEDS: PREGABALIN 75 MG CAPSULE PO SCH ×2 (10:23→21:24)
[2018-08-27] MEDS: DOCUSATE SODIUM 100 MG CAPSULE PO SCH ×2 (10:23→17:17)
[2018-08-27] MEDS: METOPROLOL SUCCINATE 25 MG TAB.SR.24H PO SCH ×2 (10:23→21:24)
[2018-08-27] MEDS: MEGESTROL ACETATE 20 MG TABLET PO SCH (10:24)
[2018-08-27] MEDS: HYDROXYUREA 500 MG CAPSULE PO SCH (10:24)
[2018-08-27] MEDS: MISOPROSTOL 0.2 MG TABLET PO SCH ×2 (10:25→21:24)
[2018-08-27] MEDS: ENOXAPARIN SODIUM INJ 40 MG/0.4 ML DISP.SYRIN SUBCUT SCH (10:25)
[2018-08-27] MEDS: LEVOFLOXACIN 750 MG/D5W RTU 750 MG/150 ML RTUPB IV SCH (10:56)
[2018-08-27 14:39] LABS: ALANINE AMINOTRANSFERASE 25 U/L (21-72); ALBUMIN 2.5 g/dL (3.5-5.0); ALKALINE PHOSPHATASE 130 U/L (38-126); ANION GAP 6 (5-19); ASPARTATE AMINO TRANSFERASE 32 U/L (17-59); BILIRUBIN,DIRECT 0.5 mg/dL (0.0-0.4); BILIRUBIN,TOTAL 0.9 mg/dL (0.2-1.3); BLOOD UREA NITROGEN 12 mg/dL (7-20); CALCIUM 8.4 mg/dL (8.4-10.2); CARBON DIOXIDE 31 mmol/L (22-30); CHLORIDE 106 mmol/L (98-107); GLUCOSE 92 mg/dL (75-110); POTASSIUM 4.2 mmol/L (3.6-5.0); SODIUM 143.3 mmol/L (137-145); TOTAL PROTEIN 6.2 g/dL (6.3-8.2)
[2018-08-27 15:38] LABS: ABSOLUTE BASOPHILS # (AUTO) 0.1 10^3/uL (0.0-0.2); ABSOLUTE EOSINOPHILS # (AUTO) 0.7 10^3/uL (0.0-0.6); ABSOLUTE LYMPHOCYTES (AUTO) 2.6 10^3/uL (0.5-4.7); ABSOLUTE MONOCYTES (AUTO) 1.4 10^3/uL (0.1-1.4); ABSOLUTE NEUT (AUTO) 7.1 10^3/uL (1.7-8.2); BASOPHILS % (AUTO) 0.6 % (0-2); EOSINOPHILS % (AUTO) 6.1 % (0-6); HEMATOCRIT 25.5 % (37.9-51.0); HEMOGLOBIN 8.8 g/dL (13.5-17.0); LYMPHOCYTES % (AUTO) 22.1 % (13-45); MEAN CORPUSCULAR HEMOGLOBIN 30.9 pg (27.0-33.4); MEAN CORPUSCULAR HGB CONC 34.6 g/dL (32.0-36.0); MEAN CORPUSCULAR VOLUME 89 fl (80-97); MONOCYTES % (AUTO) 11.5 % (3-13); PLATELET COUNT 320 10^3/uL (150-450); RED BLOOD COUNT 2.86 10^6/uL (4.35-5.55); RED CELL DISTRIBUTION WIDTH 16.4 % (11.5-14.0); SEGMENTED NEUTROPHILS % (AUTO) 59.7 % (42-78); TOTAL CELLS COUNTED % (AUTO) 100 %; WHITE BLOOD COUNT 11.8 10^3/uL (4.0-10.5)
--- NOTE | 2018-08-27 16:44 | PDOC TRANSFER SUMMARY ---
General - Admit/Disc Date/PCP Admission Date/Primary Care Provider: 08/21/18 13:21 YON MARCOS MD Discharge Date: 08/27/18 - Discharge Diagnosis (1) Sickle cell hemolytic anemia Is this a current diagnosis for this admission?: Yes (2) Infected prosthesis of right hip Is this a current diagnosis for this admission?: Yes (3) Status post total replacement of right hip Is this a current diagnosis for this admission?: Yes (4) Right lower lobe pneumonia Is this a current diagnosis for this admission?: Yes (5) Supraventricular tachycardia Is this a current diagnosis for this admission?: Yes - Additional Information Resuscitation Status: Full Code Prescriptions: Oxycodone HCl/Acetaminophen [Percocet 5-325 mg Tablet] 1 tab PO Q6HP PRN #120 tablet PRN Reason: Folic Acid 1 mg PO DAILY #90 tablet Levofloxacin [Levaquin 750 mg Tablet] 750 mg PO DAILY #10 tab Home Medications: Hydroxyurea [Hydrea 500 mg Capsule] 500 mg PO DAILY 08/21/18 Levetiracetam [Keppra 500 mg Tablet] 500 mg PO Q12 08/21/18 Mirtazapine 7.5 mg PO QHS 08/21/18 Tamsulosin HCl [Flomax 0.4 mg Cap.sr] 0.4 mg PO QPM 08/21/18 Folic Acid 1 mg PO DAILY #90 tablet 08/27/18 Levofloxacin [Levaquin 750 mg Tablet] 750 mg PO DAILY #10 tab 08/27/18 Metoprolol Succinate [Toprol Xl 25 mg Tab.sr] 12.5 mg PO Q12 tab.sr.24h Oxycodone HCl/Acetaminophen [Percocet 5-325 mg Tablet] 1 tab PO Q6HP PRN #120 tablet 08/27/18 History of Present Illness Admission Date/PCP: 08/21/18 13:21 YON MARCOS MD History of Present Illness: EMIL BARNES is a 28 year old male, 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 Hospital Course Hospital Course: Patient was admitted for the management of right hip joo-prosthetic infection. He underwent surgery on August 22, 2018, removal of cement spacer with insertion of right total hip arthroplasty, a conversion arthroplasty was done by Dr. Marcos. Hospital course was complicated with right lower lobe pneumonia , he developed SVT requiring intravenous Cardizem infusion for rate control he was seen by Dr. Palomares cardiology CTA chest was ordered, it demonstrated right lower lobe consolidation but there is no pulmonary emboli visualized. A 2D echo was also done, it demonstrated low normal ejection fraction of left ventricle, the left ventricle was grossly of normal size the other chambers were dilated there is no valvular heart disease. Also had episode of severe anemia requiring blood transfusion, he require opioid for pain control during hospital stay. No organism was isolated from the blood of sputum on this admission. Physical Exam Vital Signs: Temp Pulse Resp BP Pulse Ox 97.4 F 90 16 116/73 100 08/27/18 15:49 08/27/18 15:49 08/27/18 15:49 08/27/18 15:49 08/27/18 15:49 Intake & Output 08/26/18 08/27/18 08/28/18 06:59 06:59 06:59 Intake Total 2809 900 300 Output Total 300 0 Balance 2509 900 300 Weight 60.9 kg 55.7 kg General appearance: PRESENT: no acute distress, well-developed, well-nourished Head exam: PRESENT: atraumatic, normocephalic Eye exam: PRESENT: conjunctiva pink, EOMI, PERRLA Ear exam: PRESENT: normal external ear exam Mouth exam: PRESENT: moist, tongue midline Respiratory exam: PRESENT: clear to auscultation ishan Cardiovascular exam: PRESENT: RRR Pulses: PRESENT: normal dorsalis pedis pul Vascular exam: PRESENT: normal capillary refill GI/Abdominal exam: PRESENT: normal bowel sounds, soft Rectal exam: PRESENT: deferred Extremities exam: PRESENT: full ROM Neurological exam: PRESENT: alert, awake, oriented to person, oriented to place , oriented to time, oriented to situation, CN II-XII grossly intact Psychiatric exam: PRESENT: appropriate affect, normal mood Skin exam: PRESENT: dry, intact, warm Results Laboratory Results: 08/27/18 15:18 08/27/18 14:05 08/27/18 08/27/18 14:05 15:18 WBC 11.8 H RBC 2.86 L Hgb 8.8 L Hct 25.5 L MCV 89 MCH 30.9 MCHC 34.6 RDW 16.4 H Plt Count 320 Seg Neutrophils % 59.7 Lymphocytes % 22.1 Monocytes % 11.5 Eosinophils % 6.1 H Basophils % 0.6 Absolute Neutrophils 7.1 Absolute Lymphocytes 2.6 Absolute Monocytes 1.4 Absolute Eosinophils 0.7 H Absolute Basophils 0.1 Sodium 143.3 Potassium 4.2 Chloride 106 Carbon Dioxide 31 H Anion Gap 6 BUN 12 Creatinine 0.50 L Est GFR ( Amer) > 60 Est GFR (Non-Af Amer) > 60 Glucose 92 Calcium 8.4 Total Bilirubin 0.9 AST 32 ALT 25 Alkaline Phosphatase 130 H Total Protein 6.2 L Albumin 2.5 L 08/21/18 14:35 Blood Blood Culture - Final NO GROWTH IN 5 DAYS Impressions: Abdomen Ultrasound 08/21/18 00:00 IMPRESSION: Limited examination in that the spleen was not adequately visualized. Otherwise unremarkable sonographic appearance of the abdomen. Femur X-Ray 08/21/18 11:01 IMPRESSION: Since the prior study patient has undergone a revision of the right hip hardware. No gross re- fracture. Pelvis X-Ray 08/22/18 10:36 IMPRESSION: Status post bilateral total hip replacements. Other findings as noted above. Chest X-Ray 08/23/18 00:00 IMPRESSION: Right lower lobe consolidation worrisome for pneumonia. Small right pleural effusion Chest/Abdomen CTA 08/23/18 18:00 IMPRESSION: 1. There is no evidence of pulmonary emboli. 2. Right lower lobe consolidation. Small right pleural effusion. Qualifiers - * PATIENT BEING DISCHARGED WITH ANY OF THE FOLLOWING DIAGNOSIS: No
--- NOTE | 2018-08-27 16:51 | PDOC PROGRESS REPORT ---
Subjective Progress Note for:: 08/27/18 Subjective:: Patient seems to be doing better. No further episodes of tachycardia or SVT noted. Pt is denying any chest arm or neck discomfort. Patient denying any PND , orthopnea. Patient denied any sustained palpitations, dizziness, syncope, near syncope. Patient denying any fever chills. Patient denying any other significant discomfort. Patient is maintaining sinus rhythm. Review of systems: Rest review of systems negative. Medications: Medications have been reviewed. Reason For Visit: RIGHT HIP PERIPROSTHETIC INFECTION Physical Exam Vital Signs: Temp Pulse Resp BP Pulse Ox 97.4 F 90 16 116/73 100 08/27/18 15:49 08/27/18 15:49 08/27/18 15:49 08/27/18 15:49 08/27/18 15:49 Intake & Output 08/26/18 08/27/18 08/28/18 06:59 06:59 06:59 Intake Total 2809 900 300 Output Total 300 0 Balance 2509 900 300 Weight 60.9 kg 55.7 kg Exam: GENERAL: Thin built, possibly undernourished and in no acute distress. Alert and oriented x3 HEAD: Atraumatic, normocephalic. EYES: Pupils equal round and reactive to light, extraocular movements intact, sclera anicteric, conjunctiva are normal. ENT: TMs normal, nares patent, oropharynx clear without exudates. Moist mucous membranes. No oral ulcerations or bleeding gums noted NECK: supple without lymphadenopathy. Trachea is central. No cervical or axillary lymphadenopathy noted. Carotids are 2+, JVD WNL LUNGS: Respiration seems nonlabored, no significant accessory muscle action noted. R basal crackles noted. No wheezes rales or rhonchi noted. No significant dullness noted on percussion. CHEST: Palpation of the chest wall shows no significant chest wall tenderness. HEART: [place] [employer], No PSH, 1/6 [place] aortic area, 1/6 su systolic murmur mitral area, no rubs, no gallops. ABDOMEN: Soft, no significant tenderness appreciated, normoactive bowel sounds. No guarding, no rebound. No rigidity noted . No masses appreciated. EXTREMITIES: Pedal pulses are 1-2+, no calf tenderness noted. No clubbing or cyanosis. negative pedal edema noted NEUROLOGICAL: Focused neurological exam showed generalized mild muscle weakness with some atrophy, with increased left sided mild weakness. PSYCH: Normal mood, normal affect. Judgment and insight within normal limits. SKIN: No significant ecchymosis, skin is noted to be warm. MUSCULOSKELETAL EXAM: Deferred to orthopedic surgeon. Patient felt to have left hip prosthesis infection which is being managed by orthopedic surgeon. Results Laboratory Results: 08/27/18 15:18 08/27/18 14:05 08/27/18 08/27/18 14:05 15:18 WBC 11.8 H RBC 2.86 L Hgb 8.8 L Hct 25.5 L MCV 89 MCH 30.9 MCHC 34.6 RDW 16.4 H Plt Count 320 Seg Neutrophils % 59.7 Lymphocytes % 22.1 Monocytes % 11.5 Eosinophils % 6.1 H Basophils % 0.6 Absolute Neutrophils 7.1 Absolute Lymphocytes 2.6 Absolute Monocytes 1.4 Absolute Eosinophils 0.7 H Absolute Basophils 0.1 Sodium 143.3 Potassium 4.2 Chloride 106 Carbon Dioxide 31 H Anion Gap 6 BUN 12 Creatinine 0.50 L Est GFR ( Amer) > 60 Est GFR (Non-Af Amer) > 60 Glucose 92 Calcium 8.4 Total Bilirubin 0.9 AST 32 ALT 25 Alkaline Phosphatase 130 H Total Protein 6.2 L Albumin 2.5 L 08/21/18 14:35 Blood Blood Culture - Final NO GROWTH IN 5 DAYS Impressions: Abdomen Ultrasound 08/21/18 00:00 IMPRESSION: Limited examination in that the spleen was not adequately visualized. Otherwise unremarkable sonographic appearance of the abdomen. Femur X-Ray 08/21/18 11:01 IMPRESSION: Since the prior study patient has undergone a revision of the right hip hardware. No gross re- fracture. Pelvis X-Ray 08/22/18 10:36 IMPRESSION: Status post bilateral total hip replacements. Other findings as noted above. Chest X-Ray 08/23/18 00:00 IMPRESSION: Right lower lobe consolidation worrisome for pneumonia. Small right pleural effusion Chest/Abdomen CTA 08/23/18 18:00 IMPRESSION: 1. There is no evidence of pulmonary emboli. 2. Right lower lobe consolidation. Small right pleural effusion. Assessment & Plan - Diagnosis (1) Supraventricular tachycardia Is this a current diagnosis for this admission?: Yes (2) Sickle cell anemia Qualifiers: Sickle-cell associated disorders: without crisis Qualified Code(s): D57.1 - 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 Is this a current diagnosis for this admission?: Yes (3) Pulmonary hypertension Is this a current diagnosis for this admission?: Yes - Notes Notes: Patient has done well without any recurrence of SVT. Patient was seen on rounds yesterday and was noted to be stable. Today he is also noted to be stable from cardiac standpoint. Recommend continue patient on current dose of beta-beltran. Have discussed with nurse about signing off. Nurse tells me that patient has been very stable from cardiac standpoint without any chest pain or shortness of breath. At this point will recommend continuing current dose of beta-beltran, this could be increased as needed. Will sign off. Please reconsult if needed. - Time Time with patient: 15-25 minutes - More than 50% of the time spent coordinating care, discussing management plans with involved caregivers. Management plans discussed with involved personnels. Medical decision making was of moderate to high complexity, patient's has multiple comorbidities. Medications reviewed and adjusted accordingly: Yes
[2018-08-27] MEDS: TAMSULOSIN HCL 0.4 MG CAP.SR.24H PO SCH (17:17)
[2018-08-27] MEDS: MIRTAZAPINE 15 MG TABLET PO SCH (21:23)
[2018-08-28] MEDS: OXYCODONE HCL IR 5 MG TABLET PO PRN ×2 (00:32→10:29)
[2018-08-28] MEDS: OXYCODONE-ACETAMINOPHEN 5-325 MG TABLET PO PRN ×2 (00:32→10:30)
[2018-08-28] MEDS: LANSOPRAZOLE 30 MG TAB.RAP.DR PO SCH (05:14)
[2018-08-28] MEDS: HYDROMORPHONE HCL INJ/PF 2 MG/ML AMPULE IV PRN ×2 (06:41→11:11)
[2018-08-28] MEDS: ERTAPENEM SODIUM 1 GM in NORMAL SALINE 50 ML IV SCH (10:26)
[2018-08-28] MEDS: ENOXAPARIN SODIUM INJ 40 MG/0.4 ML DISP.SYRIN SUBCUT SCH (10:27)
[2018-08-28] MEDS: PREGABALIN 75 MG CAPSULE PO SCH (10:27)
[2018-08-28] MEDS: METOPROLOL SUCCINATE 25 MG TAB.SR.24H PO SCH (10:27)
[2018-08-28] MEDS: DOCUSATE SODIUM 100 MG CAPSULE PO SCH (10:27)
[2018-08-28] MEDS: ASPIRIN 81 MG TABLET, ENT COATED PO SCH (10:27)
[2018-08-28] MEDS: HYDROXYUREA 500 MG CAPSULE PO SCH (10:28)
[2018-08-28] MEDS: LEVETIRACETAM 500 MG TABLET PO SCH (10:28)
[2018-08-28] MEDS: MISOPROSTOL 0.2 MG TABLET PO SCH (10:28)
[2018-08-28] MEDS: MEGESTROL ACETATE 20 MG TABLET PO SCH (10:28)
[2018-08-28] MEDS: LEVOFLOXACIN 750 MG/D5W RTU 750 MG/150 ML RTUPB IV SCH (10:46)
[2018-08-28 12:23] VITALS: BP 111/62
--- NOTE | 2018-08-29 13:11 | CONSULTATION REPORT E ---
Consultation Report NAME: EMIL BARNES : 1990 AGE: 28Y DATE: 08/24/2018 302 A TO: JULIET JIMENEZ FROM: RUMA RUTH M.D. Requesting Physician HISTORY OF PRESENT ILLNESS: Patient is a 28-year-old male with a noted history of previous hip surgeries, hip fractures, and sickle cell anemia, who was admitted through the emergency room. He was evaluated, admitted onto [facility], at which time Dr. Zuniga was consulted by phone for management of acute pain flareup. Was reported that he was scheduled to have surgery with Dr. Marcos within the next day or 2. At that time verbal orders were given by Dr. Zuniga in which he was given IV Dilaudid 2 mg every 3 hours as needed as well as oxycodone 5 mg every 4-6 hours as needed. Since then, the patient has undergone surgery and is currently postoperative and being followed by Dr. Marcos for the right hip repair as well as Dr. Ruth for management of his sickle cell anemia and his chronic medical condition. The patient states that he had had this ongoing pain. Notes that it became progressively worse, so he came into the emergency room for further evaluation. He states that the pain did not seem as if it were the same as his usual sickle cell anemia crisis episodes, so he wanted to be evaluated. States he had noted redness, swelling, and discharge of the right hip at the time, and with the increased pain in the hip as well as the leg, he had concerns. Denied any other complications, complaints, numbness, tingling, paresthesia, weakness, nausea, vomiting, or diffuse joint pain at that point. Currently states his pain level is a 1 today lying in bed postoperatively. some fo the initial pain presentation has changed due to the Post op pain he has had. Staes tht he is doing PT and was able to stand today. PAST MEDICAL HISTORY: Significant for: 1. Hypertension. 2. History of a heart murmur. 3. 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 4. History of seizures, currently on medications. 5. History of gastroesophageal reflux disease. 6. History of arthritis. 7. History of anxiety, depression. 8. History of multiple fractures of the proximal femur. PAST SURGICAL HISTORY: Significant for: 1. Cholecystectomy. 2. Oral surgery in which he had reconstruction surgery. 3. Orthopedic surgery in which he underwent an open reduction, internal fixation of bilateral proximal femur due to previous fracture. 4. Tracheostomy and PEG tube placement at [facility] about 3 years. SOCIAL HISTORY: The patient denies any smoking, alcohol, or illicit drug use. FAMILY HISTORY: Reviewed and not pertinent at this point. ALLERGIES: No known drug allergies. PHYSICAL EXAMINATION: VITAL SIGNS: Blood pressure 113/54, respirations of 20, O2 saturation 97% on room air, heart rate of 109, placed on heart monitor. GENERAL APPEARANCE: The patient is lying in bed, no acute distress. He is status post right hip replacement repair so is immobile. States that he does have some minor pain, but does not demonstrate any significant pain behavior. Well appearing, well nourished, well developed, alert and oriented x3. HEENT: Head is atraumatic, normocephalic. Eyes are PERRLA. No hearing deficits noted during conversation. Nasal passages appear patent without any complications with passing air and no noted issues with swallowing. NECK: Trachea midline. No goiters, masses, lesions. LUNGS: Clear to auscultation bilaterally. HEART: Regular rate and rhythm. No gallops or rubs. ABDOMEN: Nontender, nondistended. Positive bowel sounds x4. MUSCULOSKELETAL: Right hip/leg range of motion not assessed due to recent surgical intervention noted right hip with bandage with diffuse tenderness to palpation. No active discharge or bleeding due to bandage noted at this point in time. EXTREMITIES: No clubbing, edema, cyanosis noted. Peripheral pulses 2+ bilaterally. NEUROLOGICAL: Normal speech. Motor is 5/5 diffusely with exception of the right hip, which was not assessed due to recent surgery. PSYCHOLOGICAL: The patient is alert and oriented x3. Normal mood, affect. No major anxiety, depression noted during visit today. ASSESSMENT AND PLAN: Right hip pain secondary to recent surgery due to infected prosthesis of the right hip. At this point in time, the patient seems to be responding well with the regimen, Dilaudid. Although allotted to take more frequently in a larger dosing, patient seems to be getting his daily dose pain relief with IV Dilaudid 2 mg getting about 8 mg per day and he is limiting his oxycodone to about 5-10 mg per day, noted he was given postop oxycodone 20 mg twice daily, 4 tabs, by Dr. Marcos, but has not needed to take since then. So, at this point, will continue to monitor his current medication dosing and using as it does not seem like he has taken an excessive amount. The patient is going to physical therapy, so will continue to monitor as it seems as the medication is effective for that. Will consider taper and rotation prior to discharge if going to a jail facility for further rehabilitation of the right hip. Recommend continued followup with hospitalist for management of sickle cell anemia, infection, and other complications. I would like to thank you for the opportunity to care for the patient. If there are any questions or concerns or further need for our services, please feel free to contact us and we will be happy to assist with further care. DICTATING PHYSICIAN: JULIET JIMENEZ [id number] PHY#: [id number] ID: [id number] JOB#: [id number] ACCT: [id number] cc:JULIET JIMENEZ > MTDD
== END 2018-08-28 12:07 | DRG 466 ==
LOC: ER 10:49 → EH 13:21 → 3S 14:49 → 3N 08-22 13:51
PROVIDERS: ADMIT Family Medicine; ATTEND Internal Medicine
PROC: 0SR902Z Replacement of Right Hip Joint with Metal on Polyethylene Synthetic Substitute, Open Approach (ICD-10-PCS; 2018-08-22)
PROC: 30233N1 Transfusion of Nonautologous Red Blood Cells into Peripheral Vein, Percutaneous Approach (ICD-10-PCS; 2018-08-22)
PROC: 0SP908Z Removal of Spacer from Right Hip Joint, Open Approach (ICD-10-PCS; principal; 2018-08-22 08:45)
PROC: 30233N1 Transfusion of Nonautologous Red Blood Cells into Peripheral Vein, Percutaneous Approach (ICD-10-PCS; 2018-08-24)
PROC: 3E02340 Introduction of Influenza Vaccine into Muscle, Percutaneous Approach (ICD-10-PCS; 2018-08-28)
DX: T84.51XA Infection and inflammatory reaction due to internal right hip prosthesis, initial encounter (principal); J18.9 Pneumonia, unspecified organism; D57.00 Hb-SS disease with crisis, unspecified; I47.1 Supraventricular tachycardia; D62 Acute posthemorrhagic anemia; I69.354 Hemiplegia and hemiparesis following cerebral infarction affecting left non-dominant side; I27.20 Pulmonary hypertension, unspecified; Z90.49 Acquired absence of other specified parts of digestive tract; Z23 Encounter for immunization; M19.90 Unspecified osteoarthritis, unspecified site; K21.9 Gastro-esophageal reflux disease without esophagitis; I10 Essential (primary) hypertension; G40.909 Epilepsy, unspecified, not intractable, without status epilepticus; Y83.1 Surgical operation with implant of artificial internal device as the cause of abnormal reaction of the patient, or of later complication, without mention of misadventure at the time of the procedure; Z79.899 Other long term (current) drug therapy; Z87.81 Personal history of (healed) traumatic fracture
CPT/HCPCS: 01214; 36415; 36430; 71045; 71275; 72170; 76700; 80048; 80053; 83010; 83615; 85025; 85027; 85045; 85610; 86850; 86900; 86901; 86902; 86920; 87040; 87070; 87075; 87205; 88305; 88311; 88331; 90686; 93005; 93010; 93306; 94799; 96361; 96374; 96376; 99285; C1713; C1758; C1776; C9290; G8978-GP; G8979-GP; G8987-GO; G8988-GO; J0131; J0282; J0330; J0690; J1100; J1170; J1335; J1650; J1741; J1956; J2250; J2270; J2370; J2405; J2704; J2765; J3010; J3370; J3490; J7030; J7050; J7060; J7120; P9016; S0119

== ENCOUNTER 2018-10-04 08:19 | Outpatient (CLI) | payer MEDICARE, MEDICAID ==
[2018-10-04 09:38] LABS: HEMATOCRIT 20.6 % (37.9-51.0); MEAN CORPUSCULAR HEMOGLOBIN 31.5 pg (27.0-33.4); MEAN CORPUSCULAR HGB CONC 34.7 g/dL (32.0-36.0); MEAN CORPUSCULAR VOLUME 91 fl (80-97); PLATELET COUNT 351 10^3/uL (150-450); RED BLOOD COUNT 2.27 10^6/uL (4.35-5.55); RED CELL DISTRIBUTION WIDTH 17.6 % (11.5-14.0); WHITE BLOOD COUNT 11.6 10^3/uL (4.0-10.5)
[2018-10-04 10:03] LABS: HEMOGLOBIN 7.2 g/dL (13.5-17.0)
[2018-10-04] MEDS ORDERED: OXYCODONE-ACETAMINOPHEN 5-325 MG TABLET PO PRN (14:55)
[2018-10-04 17:35] VITALS: BP 98/54
== END 2018-10-04 17:25 ==
LOC: II 08:19 → 4W 08:44 → II 17:25
PROVIDERS: ATTEND Internal Medicine
PROC: 30243N1 Transfusion of Nonautologous Red Blood Cells into Central Vein, Percutaneous Approach (ICD-10-PCS; principal; 2018-10-04)
DX: Z76.89 Persons encountering health services in other specified circumstances (principal)
CPT/HCPCS: 86900; 86901; 36415; 36430; 86850; 86920; 86902 ×4; P9016; A9270

== ENCOUNTER 2018-11-17 15:33 | Outpatient (CLI) | payer MEDICARE, MEDICAID ==
[2018-11-17] MEDS ORDERED: NORMAL SALINE 1000 ML 1,000 ML IV PRN (16:32)
[2018-11-17] MEDS ORDERED: OXYCODONE-ACETAMINOPHEN 5-325 MG TABLET PO PRN (21:50)
[2018-11-18 04:24] LABS: HEMATOCRIT 21.6 % (37.9-51.0); MEAN CORPUSCULAR HGB CONC 35.7 g/dL (32.0-36.0); MEAN CORPUSCULAR VOLUME 90 fl (80-97); PLATELET COUNT 273 10^3/uL (150-450); RED BLOOD COUNT 2.41 10^6/uL (4.35-5.55); WHITE BLOOD COUNT 10.6 10^3/uL (4.0-10.5)
[2018-11-18 04:32] LABS: HEMOGLOBIN 7.7 g/dL (13.5-17.0)
[2018-11-18 09:35] VITALS: BP 120/67
== END 2018-11-18 13:30 ==
LOC: II 15:33 → 2N 15:35 → II 11-18 13:30
PROVIDERS: ATTEND Internal Medicine
PROC: 30233N1 Transfusion of Nonautologous Red Blood Cells into Peripheral Vein, Percutaneous Approach (ICD-10-PCS; principal; 2018-11-17)
DX: D64.9 Anemia, unspecified (principal)
CPT/HCPCS: 86900; 86901; 36415; 36430; 86850; 85027; 86920; 86902 ×4; P9016; A9270; J7030

== ENCOUNTER → 2018-12-01 | Outpatient (CLI) | payer MEDICARE, MEDICAID ==
[2018-12-01 12:31] LABS: ABSOLUTE BASOPHILS # (AUTO) 0.1 10^3/uL (0.0-0.2); ABSOLUTE LYMPHOCYTES (AUTO) 1.7 10^3/uL (0.5-4.7); ABSOLUTE MONOCYTES (AUTO) 1.1 10^3/uL (0.1-1.4); ABSOLUTE NEUT (AUTO) 13.6 10^3/uL (1.7-8.2); BASOPHILS % (AUTO) 0.4 % (0-2); EOSINOPHILS % (AUTO) 0.2 % (0-6); HEMATOCRIT 20.6 % (37.9-51.0); LYMPHOCYTES % (AUTO) 10.4 % (13-45); MEAN CORPUSCULAR HEMOGLOBIN 30.8 pg (27.0-33.4); MEAN CORPUSCULAR HGB CONC 34.4 g/dL (32.0-36.0); MEAN CORPUSCULAR VOLUME 90 fl (80-97); MONOCYTES % (AUTO) 6.5 % (3-13); PLATELET COUNT 308 10^3/uL (150-450); RED CELL DISTRIBUTION WIDTH 16.6 % (11.5-14.0); SEGMENTED NEUTROPHILS % (AUTO) 82.5 % (42-78); TOTAL CELLS COUNTED % (AUTO) 100 %; WHITE BLOOD COUNT 16.4 10^3/uL (4.0-10.5)
[2018-12-01 12:37] LABS: HEMOGLOBIN 7.1 g/dL (13.5-17.0)
[2018-12-01 12:58] LABS: ANION GAP 8 (5-19); BLOOD UREA NITROGEN 13 mg/dL (7-20); C-REACTIVE PROTEIN 51.8 mg/L (<10.0); CALCIUM 9.4 mg/dL (8.4-10.2); CARBON DIOXIDE 28 mmol/L (22-30); CHLORIDE 105 mmol/L (98-107); GLUCOSE 117 mg/dL (75-110); POTASSIUM 4.4 mmol/L (3.6-5.0); SODIUM 141.3 mmol/L (137-145)
[2018-12-01 13:17] LABS: ERYTHROCYTE SEDIMENTATION RATE 90 mm/hr (0-15)
== END ==
LOC: OD 11:34
PROVIDERS: ATTEND Orthopaedic Surgery
DX: M25.551 Pain in right hip (principal); M25.552 Pain in left hip
CPT/HCPCS: 36415; 80048; 85025; 85652; 86140

== ENCOUNTER → 2018-12-09 | Outpatient (CLI) | payer MEDICARE, MEDICAID ==
--- NOTE | 2018-12-09 15:30 | RADIOLOGY REPORT (SQ) ---
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 The route of agent administration: Intravenous. ADDITIONAL DRUGS AND DOSES: None. TECHNIQUE: Routine delayed images at 3 hour post radionuclide injection acquired of the bony skeleto n including anterior and posterior whole-body projections and additional focused images as needed. LIMITATIONS: None. FINDINGS: BONES: Photopenia associated with bilateral hip arthroplasty. Increased uptake both aceta bula, more conspicuous in the left hip. There are new foci of increased uptake in the right midshaft femur and in approximately L3 vertebral body which were not present on the prior. KIDNEYS: Symmetric excretion without obstruction. OTHER: No other significant finding. IMPRESSION: 1. Increased uptake both acetabula, nonspecific and not unexpected given bilateral hip replacements i n the last year. 2. New abnormal uptake in the right midshaft femur and L3 vertebral body. Suspicious for compression fracture. Recommend correlation with plain films of the lumbar spine and right femur. COMMENT: Quality measure 147: Current bone scan is compared with any available plain radiographs, p rior bone scans, and CT/MRI. TECHNICAL DOCUMENTATION: JOB ID: [id number] [employer]- All Rights Reserved Reading location - IP/workstation name: [email or web address]
== END ==
LOC: RAD 10:13
PROVIDERS: ATTEND Orthopaedic Surgery
DX: Z47.1 Aftercare following joint replacement surgery (principal); Z96.643 Presence of artificial hip joint, bilateral
CPT/HCPCS: 78306; A9561; Q9969

== ENCOUNTER → 2018-12-16 | Outpatient (CLI) | payer MEDICARE, MEDICAID ==
--- NOTE | 2018-12-16 14:23 | RADIOLOGY REPORT (SQ) ---
EXAM DESCRIPTION: SKULL 1-3 VIEWS COMPLETED DATE/TIME: 12/16/2018 2:10 pm REASON FOR STUDY: EVAL FOR METAL IN HEAD S31.031A WEDGE COMPRESSION FRACTURE OF THIRD LUMBAR VERTEBR A COMPARISON: 03/22/2017 NUMBER OF VIEWS: Three views TECHNIQUE: Lateral, rod and PA views of the skull were obtained LIMITATIONS: None. FINDINGS: SKULL: Sutures are normal. No displaced skull fractures. Unremarkable sinuses. OTHER: Dental amalgam noted. Surgical clips overlie posterior nasopharynx and mandible, unchanged. IMPRESSION: No evidence of intracranial or intraorbital radiopaque foreign body. TECHNICAL DOCUMENTATION: JOB ID: [id number] [employer]- All Rights Reserved Reading location - IP/workstation name: [email or web address]
--- NOTE | 2018-12-16 15:06 | RADIOLOGY REPORT (SQ) ---
EXAM DESCRIPTION: MRI LUMBAR SPINE WITHOUT COMPLETED DATE/TIME: 12/16/2018 2:37 pm REASON FOR STUDY: S32.030A WEDGE COMPRESSION FRACTURE OF THIRD LUMBAR VERTEBRA, INITIAL ENCOU S32.03 0A WEDGE COMPRESSION FRACTURE OF THIRD LUMBAR VERTEBRA COMPARISON: AP pelvis films 08/22/2018 Whole-body bone scan 12/09/2018, 01/17/2018 TECHNIQUE: Sagittal and Axial imaging includes T1, T2, STIR and gradient echo sequences. Coronal T2/ HASTE imaging. LIMITATIONS: None. FINDINGS: VISUALIZED UPPER ABDOMEN: Limited evaluation. No acute or suspicious findings suggested. SEGMENTATION: No transitional anatomy. The lowest well-developed disc space is labeled L5-S1. ALIGNMENT: Anatomic. VERTEBRAE: 50% compression of the L3 vertebral body with bone marrow edema along the upper endplate. This correlates with increased uptake on bone scan 12/09/2018. This is a subacute L3 compression defo rmity. BONE MARROW: Overall there is a decrease fatty marrow content throughout the visualized spine and bon y pelvis. Benign-appearing bone infarct in the S1 level. Marrow edema parallels the upper endplate compression at L3. DISC SIGNAL: Normal. No significant abnormal signal or loss of height. POSTERIOR ELEMENTS: Generally intact. No pars defect evident. HARDWARE: None in the spine. CORD AND CONUS: Normal in size and signal intensity. Conus at the T12-L1 level. SOFT TISSUES: No aortic aneurysm seen. No bulky retroperitoneal adenopathy or mass. No paraspinal mas s or fluid. L1-L2: No significant spinal stenosis or exit foraminal stenosis. L2-L3: Minimal retropulsion of the posterosuperior corner of L3 without significant central canal com promise. No significant L2-3 disc bulging. Mild bilateral facet hypertrophy. No significant forami nal narrowing. L3-L4: No significant spinal stenosis or exit foraminal stenosis. L4-L5: No significant spinal stenosis or exit foraminal stenosis. L5-S1: No significant spinal stenosis or exit foraminal stenosis. SACRUM: Visualized upper sacrum intact. OTHER: No other significant findings. IMPRESSION: Subacute compression deformity at L3, without significant central or foraminal encroachm ent. TECHNICAL DOCUMENTATION: JOB ID: [id number] [employer]- All Rights Reserved Reading location - IP/workstation name: [email or web address]
== END ==
LOC: RAD 12:47
PROVIDERS: ATTEND Orthopaedic Surgery
DX: S32.030A Wedge compression fracture of third lumbar vertebra, initial encounter for closed fracture (principal); X58.XXXA Exposure to other specified factors, initial encounter; Y93.9 Activity, unspecified; Y92.9 Unspecified place or not applicable
CPT/HCPCS: 70250; 72148

== ENCOUNTER 2018-12-22 08:59 | Outpatient (CLI) | payer MEDICARE, MEDICAID ==
[~2018-12-22 08:59] MED LIST changes: -ACETAMINOPHEN 1,000 MG/100 ML RTUPB IV ONE; +ACETAMINOPHEN 325 MG TABLET PO PRN; -BUPIVACAINE INJ/PF LIPOSOME/PF 266 MG/20 ML SDV INJ PRN; -BUPIVACAINE INJ/PF LIPOSOME/PF 266 MG/20 ML SDV ONE; -CEFAZOLIN INJ 1 GM VIAL IV PRN; -DEXMEDETOMIDINE INJ 80 MCG/20 ML VIAL IV ONE; +DIPHENHYDRAMINE HCL 25 MG CAPSULE PO PRN; -EPHEDRINE SULFATE INJ 50 MG/1 ML AMPULE ONE; -FENTANYL CITRATE INJ/PF 250 MCG/5 ML AMPULE ONE; +FUROSEMIDE INJ/PF 20 MG/2 ML SDV IV PRN; -HYDROMORPHONE HCL INJ/PF 2 MG/ML AMPULE ONE; -IBUPROFEN 800 MG in NORMAL SALINE 250 ML IV PRN; -LACTATED RINGERS 1000 ML IV PRN; -LANSOPRAZOLE 15 MG TAB.RAP.DR PO PRN; -LIDOCAINE 2% INJ-PF (20 MG/ML) 10 ML AMPUL ONE; -MIDAZOLAM 2 MG/2 ML INJ ONE; -OXYCODONE HCL SR 10 MG TABLET PO PRN; -PROPOFOL INJ 200 MG/20 ML VIAL IV ONE; -THROMBIN (BOVINE) TOPICAL 20000 UNIT VIAL ONE; -THROMBIN (BOVINE) TOPICAL 5000 UNIT VIAL ONE; -TRANEXAMIC ACID INJ/PF 1,000 MG/10 ML SDV IV ONE; -VANCOMYCIN HCL 1,000 MG in DEXTROSE 5%-WATER 250 ML IV PRN
[2018-12-22] MEDS ORDERED: NORMAL SALINE 250 ML IV PRN (10:00)
[2018-12-22 11:56] LABS: HEMATOCRIT 19.7 % (37.9-51.0); MEAN CORPUSCULAR HGB CONC 34.2 g/dL (32.0-36.0); MEAN CORPUSCULAR VOLUME 88 fl (80-97); PLATELET COUNT 334 10^3/uL (150-450); RED BLOOD COUNT 2.25 10^6/uL (4.35-5.55); RED CELL DISTRIBUTION WIDTH 15.7 % (11.5-14.0)
[2018-12-22 12:00] LABS: HEMOGLOBIN 6.7 g/dL (13.5-17.0)
[2018-12-22 21:18] VITALS: BP 102/59
[2018-12-22 23:24] LABS: HEMATOCRIT 25.3 % (37.9-51.0); HEMOGLOBIN 8.7 g/dL (13.5-17.0); MEAN CORPUSCULAR HEMOGLOBIN 29.9 pg (27.0-33.4); MEAN CORPUSCULAR HGB CONC 34.4 g/dL (32.0-36.0); MEAN CORPUSCULAR VOLUME 87 fl (80-97); PLATELET COUNT 287 10^3/uL (150-450); RED BLOOD COUNT 2.92 10^6/uL (4.35-5.55); RED CELL DISTRIBUTION WIDTH 15.6 % (11.5-14.0); WHITE BLOOD COUNT 11.5 10^3/uL (4.0-10.5)
== END 2018-12-22 23:37 ==
LOC: II 08:59 → 4N 09:09 → II 23:37
PROVIDERS: ATTEND Internal Medicine
PROC: 30233N1 Transfusion of Nonautologous Red Blood Cells into Peripheral Vein, Percutaneous Approach (ICD-10-PCS; principal; 2018-12-22)
DX: D57.1 Sickle-cell disease without crisis (principal)
CPT/HCPCS: 86900; 86901; 36415; 36430; 86850; 85027; 86920; 86902 ×4; P9016; A9270

== ENCOUNTER 2018-12-23 05:55 | Day surgery (SDC) | payer MEDICARE, MEDICAID ==
[2018-12-21 11:07] LABS: HEMATOCRIT 22.5 % (37.9-51.0); MEAN CORPUSCULAR HEMOGLOBIN 30.5 pg (27.0-33.4); MEAN CORPUSCULAR HGB CONC 34.8 g/dL (32.0-36.0); MEAN CORPUSCULAR VOLUME 88 fl (80-97); PLATELET COUNT 363 10^3/uL (150-450); RED BLOOD COUNT 2.57 10^6/uL (4.35-5.55); RED CELL DISTRIBUTION WIDTH 15.9 % (11.5-14.0)
[2018-12-21 11:09] LABS: INTERNATIONAL RATION (INR) 1.26; PROTHROMBIN TIME 16.5 SEC (11.4-15.4)
[2018-12-21 11:10] LABS: HEMOGLOBIN 7.8 g/dL (13.5-17.0); PARTIAL THROMBOPLASTIN TIME 46.4 SEC (23.5-35.8)
[2018-12-21 11:26] LABS: ANION GAP 10 (5-19); BLOOD UREA NITROGEN 13 mg/dL (7-20); CALCIUM 9.2 mg/dL (8.4-10.2); CARBON DIOXIDE 26 mmol/L (22-30); CHLORIDE 107 mmol/L (98-107); GLUCOSE 93 mg/dL (75-110); POTASSIUM 4.5 mmol/L (3.6-5.0); SODIUM 143.2 mmol/L (137-145)
[~2018-12-23 05:55] MED LIST changes: -ACETAMINOPHEN 325 MG TABLET PO PRN; +CEFAZOLIN 1 GM/D5W RTU 1 GM/50 ML RTUPB IV ONE; +CEFAZOLIN 1 GM/D5W RTU 1 GM/50 ML RTUPB IV PRN; -DIPHENHYDRAMINE HCL 25 MG CAPSULE PO PRN; -FUROSEMIDE INJ/PF 20 MG/2 ML SDV IV PRN; +LACTATED RINGERS 1000 ML IV PRN; +LIDOCAINE 0.5% INJ-PF (5 MG/ML) 50 ML SDV SUBCUT PRN
[2018-12-23] MEDS ORDERED: METOPROLOL SUCCINATE 25 MG TAB.SR.24H PO PRN (07:08)
[2018-12-23] MEDS ORDERED: METOPROLOL TARTRATE 25 MG TABLET ONE (07:14)
[2018-12-23 07:29] LABS: ABSOLUTE BASOPHILS # (AUTO) 0.1 10^3/uL (0.0-0.2); ABSOLUTE EOSINOPHILS # (AUTO) 0.2 10^3/uL (0.0-0.6); ABSOLUTE MONOCYTES (AUTO) 0.4 10^3/uL (0.1-1.4); BASOPHILS % (AUTO) 1.1 % (0-2); EOSINOPHILS % (AUTO) 2.4 % (0-6); HEMATOCRIT 26.1 % (37.9-51.0); HEMOGLOBIN 9.2 g/dL (13.5-17.0); LYMPHOCYTES % (AUTO) 25.6 % (13-45); MEAN CORPUSCULAR HEMOGLOBIN 30.4 pg (27.0-33.4); MEAN CORPUSCULAR HGB CONC 35.3 g/dL (32.0-36.0); MEAN CORPUSCULAR VOLUME 86 fl (80-97); MONOCYTES % (AUTO) 5.1 % (3-13); PLATELET COUNT 317 10^3/uL (150-450); RED BLOOD COUNT 3.03 10^6/uL (4.35-5.55); RED CELL DISTRIBUTION WIDTH 15.8 % (11.5-14.0); SEGMENTED NEUTROPHILS % (AUTO) 65.8 % (42-78); TOTAL CELLS COUNTED % (AUTO) 100 %; WHITE BLOOD COUNT 7.6 10^3/uL (4.0-10.5)
[2018-12-23 07:47] LABS: INTERNATIONAL RATION (INR) 1.25; PROTHROMBIN TIME 16.3 SEC (11.4-15.4)
[2018-12-23] MEDS ORDERED: SODIUM BICARBONATE 8.4% INJ 50 MEQ/50 ML DISP.SYRIN ONE (07:54)
[2018-12-23] MEDS ORDERED: LIDOCAINE 1% INJ-PF (10 MG/ML) 30 ML SDV ONE (07:54)
[2018-12-23] MEDS ORDERED: FENTANYL CITRATE INJ/PF 100 MCG/2 ML AMPUL ONE (08:03)
[2018-12-23] MEDS ORDERED: ACETAMINOPHEN 0 MG/0 ML RTUPB IV ONE (08:03)
[2018-12-23] MEDS ORDERED: ONDANSETRON HCL INJ/PF 4 MG/2 ML SDV ONE (08:03)
[2018-12-23] MEDS ORDERED: EPHEDRINE SULFATE INJ 50 MG/1 ML AMPULE ONE (08:03)
[2018-12-23] MEDS ORDERED: PROMETHAZINE HCL INJ 25 MG/1 ML VIAL ONE (08:03)
[2018-12-23] MEDS ORDERED: DEXAMETHASONE SOD PHOSPHATE INJ 4 MG/1 ML VIAL ONE (08:03)
[2018-12-23] MEDS ORDERED: MIDAZOLAM 2 MG/2 ML INJ ONE (08:03)
[2018-12-23] MEDS ORDERED: PROPOFOL INJ 200 MG/20 ML VIAL IV ONE (08:03)
[2018-12-23] MEDS ORDERED: LIDOCAINE 1%/EPINEPHRINE INJ 20 ML VIAL ONE (08:57)
[2018-12-23] MEDS ORDERED: PROMETHAZINE HCL INJ 25 MG/1 ML VIAL IV PRN ×2 (09:33)
[2018-12-23] MEDS ORDERED: DIPHENHYDRAMINE HCL 50 MG/ML VIAL IV PRN (09:33)
[2018-12-23] MEDS ORDERED: MEPERIDINE HCL/PF INJ 25 MG/1 ML DISP.SYRIN IV PRN (09:33)
[2018-12-23] MEDS ORDERED: FENTANYL CITRATE INJ/PF 100 MCG/2 ML AMPUL IV PRN ×3 (09:33)
[2018-12-23] MEDS ORDERED: MORPHINE SULFATE 10 MG/ML INJ IV PRN (09:33)
[2018-12-23] MEDS ORDERED: ACETAMINOPHEN 1,000 MG/100 ML RTUPB IV ONE (09:48)
[2018-12-23] MEDS: FENTANYL CITRATE INJ/PF 100 MCG/2 ML AMPUL ONE ×2 (09:50→09:55)
--- NOTE | 2018-12-23 09:52 | OPERATIVE REPORT E ---
Operative Report NAME: EMIL BARNES : 1990 AGE: 28Y DATE OF SURGERY: 12/23/2018 ROOM: PREOPERATIVE DIAGNOSIS: L3 compression fracture with intractable pain. POSTOPERATIVE DIAGNOSIS: L3 compression fracture with intractable pain. OPERATIVE PROCEDURE: L3 balloon kyphoplasty under fluoroscopic guidance with bilateral transpedicular approach. SURGEON: XIMENA GIRALDO M.D. ANESTHESIA: MAC. ESTIMATED BLOOD LOSS: Minimal/5 mL. COMPLICATIONS: None. FINDINGS: Compression fracture consistent with MRI findings. INDICATIONS: Intractable pain. Positive bone scan. Positive MRI. PROCEDURE: Obtained informed consent advising the patient of the risks and benefits, including serious neurological injury, bleeding, and infection, allergic reaction, paralysis, bleeding, and , he was taken to the operating room and placed comfortably in the prone position. He was prepped and draped in the usual fashion with appropriate drying time. Fluoroscopy was set up to visualize and identify the L3 fracture and was correlated to MRI imaging. Beginning on the left side, paramedian approach, the skin was anesthetized over the selected region over the left pedicle on the L3 vertebral body. Subcutaneous and periosteal tissues were anesthetized fully using 1% lidocaine with bicarb with epinephrine. A small incision was made in the anesthetized skin region. The Express trocar was then advanced into the pedicle and vertebral body after multiple imaging to assure safe translocation through the pedicle and to the vertebral body without penetrating into the canal. The drill was then advanced again with multiple imaging. This was removed followed by placement of the balloon which inflated easily. The procedure was then repeated on the right side. A second balloon was placed. Cement was mixed. Beginning on the left side, cement was injected after removing the balloon on both sides. A total of 2 mL of cement was injected on the right and 2 mL on the left for a total of 4 mL. Cement filled the bony marrow region quite well without retrograde spread and without spread into the disk or embolization. The filler tubes were removed. Stylettes were placed. The cement was allowed to harden and all instrumentation was removed. The region was then dressed. The patient was then taken to the PACU for further postoperative care and monitoring. He remained neurologically and hemodynamically intact. DICTATING PHYSICIAN: XIMENA GIRALDO M.D. [id number] Y#: [id number] ID: [id number] JOB#: [id number] ACCT: [id number] cc:XIMENA GIRALDO M.D. >
[2018-12-23] MEDS ORDERED: CEFAZOLIN INJ 1 GM VIAL ONE (10:11)
[2018-12-23 11:54] VITALS: BP 116/80
--- NOTE | 2018-12-23 14:53 | RADIOLOGY REPORT (SQ) ---
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 TECHNIQUE: Intra-operative images acquired during surgical procedure to evaluate progress. NUMBER OF IMAGES: 40 digital C-arm images LIMITATIONS: None. FINDINGS: Intra procedural imaging and fluoro during kyphoplasty. Please see the operative report f or further details IMPRESSION: IMAGE(S) OBTAINED DURING PROCEDURE. COMMENT: Quality ID 145: Final reports for procedures using fluoroscopy that document radiation exp osure indices, or exposure time and number of fluorographic images (if radiation exposure indices are not available) Please consult full operative report of the attending physician for description of the procedure. TECHNICAL DOCUMENTATION: JOB ID: [id number] [employer]- All Rights Reserved Reading location - IP/workstation name: [email or web address]
--- NOTE | 2018-12-23 14:53 | RADIOLOGY REPORT (SQ) ---
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 TECHNIQUE: Intra-operative images acquired during surgical procedure to evaluate progress. NUMBER OF IMAGES: 40 digital C-arm images LIMITATIONS: None. FINDINGS: Intra procedural imaging and fluoro during kyphoplasty. Please see the operative report f or further details IMPRESSION: IMAGE(S) OBTAINED DURING PROCEDURE. COMMENT: Quality ID 145: Final reports for procedures using fluoroscopy that document radiation exp osure indices, or exposure time and number of fluorographic images (if radiation exposure indices are not available) Please consult full operative report of the attending physician for description of the procedure. TECHNICAL DOCUMENTATION: JOB ID: [id number] [employer]- All Rights Reserved Reading location - IP/workstation name: [email or web address]
== END 2018-12-23 11:35 | disposition home or self-care (01) ==
LOC: OROUT 05:55
PROVIDERS: ATTEND Pain Medicine Interventional Pain Medicine
DX: S32.038A Other fracture of third lumbar vertebra, initial encounter for closed fracture (principal); X58.XXXA Exposure to other specified factors, initial encounter; D57.1 Sickle-cell disease without crisis; G40.909 Epilepsy, unspecified, not intractable, without status epilepticus; R01.1 Cardiac murmur, unspecified; Z79.01 Long term (current) use of anticoagulants; Z79.899 Other long term (current) drug therapy; Z79.82 Long term (current) use of aspirin; Z79.891 Long term (current) use of opiate analgesic; Z86.73 Personal history of transient ischemic attack (TIA), and cerebral infarction without residual deficits
CPT/HCPCS: 36415 ×2; 85025; 85027; 85610 ×2; 85730 ×2; 80048; 72100; 22514; C1713; Q9966; J2250; J0690 ×2; J1100; J3010; J3490 ×2; J2704; A9270; J0131; 1936; J2405; J2550

== ENCOUNTER 2019-01-26 09:29 | Outpatient (CLI) | payer MEDICARE, MEDICAID ==
[~2019-01-26 09:29] MED LIST changes: +ACETAMINOPHEN 325 MG TABLET PO PRN; -CEFAZOLIN 1 GM/D5W RTU 1 GM/50 ML RTUPB IV ONE; -CEFAZOLIN 1 GM/D5W RTU 1 GM/50 ML RTUPB IV PRN; +DIPHENHYDRAMINE HCL 25 MG CAPSULE PO PRN; +FUROSEMIDE INJ/PF 20 MG/2 ML SDV IV PRN; -LACTATED RINGERS 1000 ML IV PRN; -LIDOCAINE 0.5% INJ-PF (5 MG/ML) 50 ML SDV SUBCUT PRN
[2019-01-26 10:30] LABS: HEMATOCRIT 20.7 % (37.9-51.0); HEMOGLOBIN 7.2 g/dL (13.5-17.0); MEAN CORPUSCULAR HEMOGLOBIN 29.8 pg (27.0-33.4); MEAN CORPUSCULAR HGB CONC 34.7 g/dL (32.0-36.0); MEAN CORPUSCULAR VOLUME 86 fl (80-97); PLATELET COUNT 363 10^3/uL (150-450); RED BLOOD COUNT 2.41 10^6/uL (4.35-5.55); RED CELL DISTRIBUTION WIDTH 16.1 % (11.5-14.0); WHITE BLOOD COUNT 9.3 10^3/uL (4.0-10.5)
[2019-01-26] MEDS ORDERED: NORMAL SALINE 250 ML IV PRN (11:30)
[2019-01-26 17:09] VITALS: BP 110/89
== END 2019-01-26 17:55 ==
LOC: II 09:29 → 3N 10:29 → II 17:55
PROVIDERS: ATTEND Internal Medicine Medical Oncology
PROC: 30233N1 Transfusion of Nonautologous Red Blood Cells into Peripheral Vein, Percutaneous Approach (ICD-10-PCS; principal; 2019-01-26)
DX: D57.1 Sickle-cell disease without crisis (principal)
CPT/HCPCS: 86900; 86901; 36415; 36430; 86850; 86920; P9016; A9270 ×2

== ENCOUNTER 2019-03-01 16:31 | Emergency (ER) | payer MEDICARE, MEDICAID ==
--- NOTE | 2019-03-01 19:37 | ER Document Report ---
ED General - General Chief Complaint: Abnormal Lab Results Stated Complaint: ABNORMAL LABS Time Seen by Provider: 03/01/19 18:13 Primary Care Provider: RUMA RUTH MD [Primary Care Provider] - Follow up as needed Mode of Arrival: Medic Information source: Patient, Transfer Record, Office Notes: Patient is a 29-year-old male who presides [facility]. He was sent to the emergency room because labs are drawn today and he came back with an abnormal hemoglobin 6.6. Patient has a history of sickle cell disease and he was shipped here for treatment purposes. Patient denies having any pain discomfort no nausea no vomiting no lightheadedness. Patient is bedridden and is nonambulatory. TRAVEL OUTSIDE OF THE [place] IN LAST 30 DAYS: No - HPI Onset: Other - Unknown Onset/Duration: Gradual Quality of pain: No pain Severity: Mild Pain Level: 0 Associated symptoms: None Exacerbated by: Denies Relieved by: Denies Similar symptoms previously: Yes Recently seen / treated by doctor: Yes - Related Data Allergies/Adverse Reactions: No Known Drug Allergies Allergy (Unknown, Verified 12/21/18 09:26) Past Medical History - General Information source: Patient, Transfer Record, Office, [facility] Records - Social History Smoking Status: Never Smoker Cigarette use (# per day): No Chew tobacco use (# tins/day): No Smoking Education Provided: No Frequency of alcohol use: None Drug Abuse: None Lives with: Senior Living Family History: None, Reviewed & Not Pertinent, Hypertension, Other Patient has suicidal ideation: No Patient has homicidal ideation: No - Past Medical History Cardiac Medical History: Reports: Hx Heart Murmur Denies: Hx Atrial Fibrillation, Hx Congestive Heart Failure, Hx Coronary Artery Disease, Hx Heart Attack, Hx Hypertension - ON METOPROLOL FOR HEART RATE, Hx Peripheral Vascular Disease, Hx Pulmonary Embolism Pulmonary Medical History: Denies: Hx Asthma, Hx Bronchitis, Hx COPD, Hx Pneumonia, Hx Tuberculosis Neurological Medical History: Reports: Hx Cerebrovascular Accident - ANEURYSM 2010, LEFT SIDED DEFICIT, Hx Seizures - ON MEDS Endocrine Medical History: Denies: Hx Graves' Disease, Hx Hyperthyroidism, Hx Hypothyroidism Renal/ Medical History: Denies: Hx Peritoneal Dialysis Malignancy Medical History: Denies Hx Leukemia, Denies Hx Lung Cancer GI Medical History: Reports: Hx Gastroesophageal Reflux Disease. Denies: Hx Pancreatitis, Hx Ulcer Musculoskeletal Medical History: Reports Hx Arthritis, Denies Hx Fibromyalgia, Denies Hx Multiple Sclerosis, Denies Hx Muscular Dystrophy Psychiatric Medical History: Reports: Hx Anxiety, Hx Depression Denies: Hx Bipolar Disorder, Hx Dementia, Hx Schizophrenia Traumatic Medical History: Reports: Hx Fractures - proximal femur Infectious Medical History: Denies: Hx HIV Past Surgical History: Reports: Hx Cholecystectomy, Hx Oral Surgery - reconstruction, Hx Orthopedic Surgery - Patient underwent open reduction internal fixation of bilateral proximal fe, Other - Patient tracheostomy and PEG tube placement [facility] 3 years. Denies: Hx Appendectomy, Hx Bowel Surgery, Hx Coronary Artery Bypass Graft, Hx Gastric Bypass Surgery, Hx Herniorrhaphy, Hx Pacemaker, Hx Tonsillectomy - Immunizations Immunizations up to date: Yes Hx Diphtheria, Pertussis, Tetanus Vaccination: No Hx Pneumococcal Vaccination: 08/05/12 Review of Systems - Review of Systems Constitutional: No symptoms reported EENT: No symptoms reported Cardiovascular: No symptoms reported Respiratory: No symptoms reported Gastrointestinal: No symptoms reported Genitourinary: No symptoms reported Male Genitourinary: No symptoms reported Musculoskeletal: No symptoms reported Skin: No symptoms reported Hematologic/Lymphatic: No symptoms reported Neurological/Psychological: No symptoms reported -: Yes All other systems reviewed and negative Physical Exam - Vital signs Vitals: Temp Resp Pulse Ox 97.7 F 15 96 03/01/19 16:45 03/01/19 16:45 03/01/19 16:45 Interpretation: Hypotensive Notes: Vital signs not recorded showed that he had a blood pressure 97/52 pulse ox 100% on room air 86 bpm heart rate and 16 respiratory rate. PHYSICAL EXAMINATION: GENERAL: Well-appearing, well-nourished and in no acute distress. HEAD: Atraumatic, normocephalic. EYES: Pupils equal round and reactive to light, extraocular movements intact, sclera anicteric, conjunctiva are normal. ENT: Nares patent, oropharynx clear without exudates. Slightly dry mucosa NECK: Normal range of motion, supple without lymphadenopathy LUNGS: Breath sounds clear to auscultation bilaterally and equal. No wheezes rales or rhonchi. HEART: Regular rate and rhythm without murmurs ABDOMEN: Soft, nontender, nondistended abdomen. No guarding, no rebound. No masses appreciated. Musculoskelatal examination the patient shows them to be bedbound. He has some limited movement of his lower extremities he does have pulses bilaterally that are in the distal dorsalis pedal area there are 1+. He has sensation going up to his legs and into his thighs. NEUROLOGICAL: Patient's neurologic examination is difficult to ascertain secondary to his condition. He is bedbound he has somewhat contractured. PSYCH: Normal mood, normal affect. SKIN: Warm, Dry, normal turgor, no rashes or lesions noted. Course - Re-evaluation Re-evalutation: 03/01/19 19:[address] Ruth after seeing patient's labs and wondering what else was wanting to be done. When I told him that his patient Bartolo Steiner was here he was very upset because he did not order lab work on him. He states patient's baseline the anemia is that 6.6 and that he does not need a transfusion. He instructed me to return patient back to the nursing facility with no blood transfusion. Again I repeated myself to Dr. Ruth and said I understand you want me to re-send patient back to the nursing facility with no blood transfusion and his answer was yes. I agree the patient does not need a transfusion at this time given his history given his freedom of no pain there is no sickle cell crisis going on he is adequately at least appears to be hydrated at this point so I feel comfortable enough to send patient back to the facility without any intervention here in the emergency room. - Vital Signs Vital signs: Temp Pulse Resp BP Pulse Ox 97.7 F 16 106/63 100 03/01/19 16:45 03/01/19 17:01 03/01/19 18:01 03/01/19 18:01 Discharge - Discharge Clinical Impression: Chronic disease anemia Disposition: HOME, SELF-CARE Instructions: Anemia ([facility]) Additional Instructions: As per Dr. Ruth we can return the back to your facility without doing any transfusion. At this point there are no new orders for you continue with your current medications and your current regime of activity. Forms: Elevated Blood Pressure Referrals: RUMA RUTH MD [Primary Care Provider] - Follow up as needed
[2019-03-01 23:33] VITALS: BP 112/72
== END 2019-03-01 23:15 ==
LOC: ER 16:31
DX: D63.8 Anemia in other chronic diseases classified elsewhere (principal)
CPT/HCPCS: 99282

== ENCOUNTER 2019-04-13 07:30 | Emergency (ER) | payer MEDICARE, MEDICAID ==
[2019-04-13 08:16] LABS: ABSOLUTE RETICS # 0.105 10^6/uL (0.028-0.122); HEMATOCRIT 17.4 % (37.9-51.0); MEAN CORPUSCULAR HEMOGLOBIN 33.7 pg (27.0-33.4); MEAN CORPUSCULAR HGB CONC 35.6 g/dL (32.0-36.0); MEAN CORPUSCULAR VOLUME 95 fl (80-97); PLATELET COUNT 291 10^3/uL (150-450); RED BLOOD COUNT 1.83 10^6/uL (4.35-5.55); RED CELL DISTRIBUTION WIDTH 25.6 % (11.5-14.0); RETICULOCYTE COUNT (AUTO) 5.74 % (0.66-2.85)
--- NOTE | 2019-04-13 08:21 | ER Document Report ---
Entered by RAMBO LONGORIA SCRIBE 04/13/19 0759 Acting as scribe for:ONEYDA VOSS MD ED General - General Stated Complaint: ABNORMAL LABS Time Seen by Provider: 04/13/19 07:44 Primary Care Provider: RUMA RUTH MD [Primary Care Provider] - Follow up as needed Mode of Arrival: Ambulatory Information source: Patient Notes: Patient is a bedridden 29 year old male with sickle cell anemia, left sided deficits secondary CVA presents to the emergency department from [facility] due to low hemoglobin. According to records, patient had a hemoglobin of 6.0 yesterday and was brought to the emergency department for transfusion. Patient states he feels ok. This patient has a chronic anemia. 10 days ago his hemoglobin was 6.2. A month ago he was sent here for transfusion due to a hemoglobin of 6.6. Transfusion was not done as his primary care provider knew him well and requested that he be returned back to the care home. I did discuss the case with Dr. Ruth, and he states that he is no longer the patient's primary care. The lab work ordered yesterday was in a another physician's name. Lab work in the past has also been ordered by Dr. Jones. TRAVEL OUTSIDE OF THE [place] IN LAST 30 DAYS: No - Related Data Allergies/Adverse Reactions: No Known Drug Allergies Allergy (Unknown, Verified 12/21/18 09:26) Past Medical History - General Information source: Patient - Social History Smoking Status: Never Smoker Cigarette use (# per day): No Chew tobacco use (# tins/day): No Smoking Education Provided: No Frequency of alcohol use: None Family History: None, Reviewed & Not Pertinent, Hypertension, Other - Past Medical History Cardiac Medical History: Reports: Hx Heart Murmur Pulmonary Medical History: Neurological Medical History: Reports: Hx Cerebrovascular Accident - ANEURYSM 2011, LEFT SIDED DEFICIT, Hx Seizures - ON MEDS GI Medical History: Reports: Hx Gastroesophageal Reflux Disease Musculoskeletal Medical History: Reports Hx Arthritis Psychiatric Medical History: Reports: Hx Anxiety, Hx Depression Traumatic Medical History: Reports: Hx Fractures - proximal femur Past Surgical History: Reports: Hx Cholecystectomy, Hx Oral Surgery - reconstruction, Hx Orthopedic Surgery - Patient underwent open reduction internal fixation of bilateral proximal fe, Other - Patient tracheostomy and PEG tube placement [facility] 3 years - Immunizations Immunizations up to date: Yes Hx Diphtheria, Pertussis, Tetanus Vaccination: No Hx Pneumococcal Vaccination: 08/05/12 Review of Systems - Review of Systems Constitutional: No symptoms reported EENT: No symptoms reported Cardiovascular: No symptoms reported Respiratory: No symptoms reported Gastrointestinal: No symptoms reported Genitourinary: No symptoms reported Male Genitourinary: No symptoms reported Musculoskeletal: No symptoms reported Hematologic/Lymphatic: See HPI, Anemia Neurological/Psychological: No symptoms reported -: Yes All other systems reviewed and negative Physical Exam - Vital signs Vitals: Temp Pulse Resp BP Pulse Ox 97.9 F 79 16 96/48 L 93 04/13/19 07:35 04/13/19 07:35 04/13/19 07:35 04/13/19 07:35 04/13/19 07:35 - Notes Notes: GENERAL: Alert, bedridden. Interacts well. No acute distress. HEAD: Normocephalic, atraumatic. EYES: Pupils equal, round, and reactive to light. Extraocular movements intact. ENT: Oral mucosa moist, tongue midline. NECK: Full range of motion. Supple. Trachea midline. LUNGS: Clear to auscultation bilaterally, no wheezes, rales, or rhonchi. No respiratory distress. HEART: Regular rate and rhythm. Murmur. ABDOMEN: Soft, non-tender. Non-distended. Bowel sounds present in all 4 quadrants. No guarding, rigidity, or rebound. EXTREMITIES: Left sided contractures. No edema. NEUROLOGICAL: Alert and oriented to person. Disoriented to place. PSYCH: Normal affect, normal mood. SKIN: Pale. Warm, dry, normal turgor. No rashes or lesions noted. Course - Re-evaluation Re-evalutation: 04/13/19 08:46 The patient's hemoglobin today is 6.2, it was 6.2 10 days ago on outpatient testing. At this time there is not a good indication for transfusing this patient. 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 - Vital Signs Vital signs: Temp Pulse Resp BP Pulse Ox 97.9 F 79 16 96/48 L 93 04/13/19 07:35 04/13/19 07:35 04/13/19 07:35 04/13/19 07:35 04/13/19 07:35 - Laboratory Result Diagrams: 04/13/19 07:50 04/13/19 07:50 Laboratory results interpreted by me: 04/13/19 07:50 WBC 11.0 H RBC 1.83 L Hgb 6.2 L Hct 17.4 L MCH 33.7 H RDW 25.6 H Eosinophils % (Manual) 7 H Absolute Eos (Manual) 0.8 H Retic Count (auto) 5.74 H Discharge - Discharge Clinical Impression: Sickle cell anemia Qualifiers: Sickle-cell associated disorders: without crisis Qualified Code(s): D57.1 - 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 Condition: Stable Disposition: SNF-Other Additional Instructions: Your hemoglobin was 6.2 today. 10 days ago your hemoglobin was 6.2 Please have your primary care provider discuss your case with your hop farm worker to decide if transfusion is in your best interest. RETURN TO THE EMERGENCY ROOM IF ANY NEW OR WORSENING SYMPTOMS. Referrals: TITO SOFIA MD [NO LOCAL MD] - Follow up as needed Scribe Attestation: 04/13/19 08:22 I personally performed the services described in the documentation, reviewed and edited the documentation which was dictated to the scribe in my presence, and it accurately records my words and actions. I personally performed the services described in the documentation, reviewed and edited the documentation which was dictated to the scribe in my presence, and it accurately records my words and actions.
[2019-04-13 08:23] LABS: HEMOGLOBIN 6.2 g/dL (13.5-17.0)
[2019-04-13 08:35] LABS: ABSOLUTE LYMPHOCYTES# (MANUAL) 3.2 10^3/uL (0.5-4.7); ABSOLUTE MONOCYTES # (MANUAL) 0.9 10^3/uL (0.1-1.4); ABSOLUTE NEUTROPHILS# (MANUAL) 6.1 10^3/uL (1.7-8.2); BASOPHILS % (MANUAL) 1 % (0-2); EOSINOPHILS % (MANUAL) 7 % (0-6); LYMPHOCYTES % (MANUAL) 29 % (13-45); MONOCYTES % (MANUAL) 8 % (3-13); NUCLEATED RED BLOOD CELLS 10 /100 WBC (0); SEGMENTED NEUTROPHILS % (MAN) 55 % (42-78); TOTAL CELLS COUNTED 100
[2019-04-13 08:41] LABS: ANISOCYTOSIS 3+; HOWELL-JOLLY BODIES PRESENT; OVALOCYTES 1+; PAPPENHEIMER BODIES PRESENT; POIKILOCYTOSIS 3+; POLYCHROMASIA 1+; SCHISTOCYTES SLIGHT; SICKLE RED CELLS 2+; TARGET CELLS 1+; TEAR DROP CELLS SLIGHT
[2019-04-13 08:42] LABS: PLATELET COMMENT ADEQUATE
[2019-04-13 08:53] LABS: ALANINE AMINOTRANSFERASE 39 U/L (21-72); ALBUMIN 3.6 g/dL (3.5-5.0); ALKALINE PHOSPHATASE 104 U/L (38-126); ANION GAP 4 (5-19); ASPARTATE AMINO TRANSFERASE 106 U/L (17-59); BILIRUBIN,DIRECT 0.3 mg/dL (0.0-0.4); BILIRUBIN,TOTAL 2.7 mg/dL (0.2-1.3); BLOOD UREA NITROGEN 14 mg/dL (7-20); CALCIUM 9.2 mg/dL (8.4-10.2); CARBON DIOXIDE 30 mmol/L (22-30); CHLORIDE 108 mmol/L (98-107); GLUCOSE 90 mg/dL (75-110); POTASSIUM 5.1 mmol/L (3.6-5.0); SODIUM 142.4 mmol/L (137-145); TOTAL PROTEIN 8.2 g/dL (6.3-8.2)
[2019-04-13 11:16] VITALS: BP 85/43
== END 2019-04-13 11:26 ==
LOC: ER 07:30
DX: D57.1 Sickle-cell disease without crisis (principal)
CPT/HCPCS: 36415; 80053; 85025; 85045; 99285

== ENCOUNTER 2019-05-02 09:36 | Outpatient (CLI) | payer MEDICARE, MEDICAID ==
[2019-05-02] MEDS ORDERED: NORMAL SALINE 250 ML IV PRN (10:30)
[2019-05-02 11:09] LABS: MEAN CORPUSCULAR HEMOGLOBIN 34.4 pg (27.0-33.4); MEAN CORPUSCULAR HGB CONC 35.7 g/dL (32.0-36.0); MEAN CORPUSCULAR VOLUME 97 fl (80-97); PLATELET COUNT 189 10^3/uL (150-450); RED BLOOD COUNT 1.87 10^6/uL (4.35-5.55); RED CELL DISTRIBUTION WIDTH 23.6 % (11.5-14.0); WHITE BLOOD COUNT 11.5 10^3/uL (4.0-10.5)
[2019-05-02 11:50] LABS: HEMOGLOBIN 6.4 g/dL (13.5-17.0)
[2019-05-02 18:02] LABS: HEMATOCRIT 25.1 % (37.9-51.0); MEAN CORPUSCULAR HEMOGLOBIN 33.1 pg (27.0-33.4); MEAN CORPUSCULAR HGB CONC 35.7 g/dL (32.0-36.0); PLATELET COUNT 181 10^3/uL (150-450); RED CELL DISTRIBUTION WIDTH 23.2 % (11.5-14.0); WHITE BLOOD COUNT 10.2 10^3/uL (4.0-10.5)
[2019-05-02 18:09] LABS: MEAN CORPUSCULAR VOLUME 93 fl (80-97)
[2019-05-02 18:20] VITALS: BP 101/62
== END 2019-05-02 18:35 ==
LOC: II 09:36 → 2S 09:39 → II 18:35
PROVIDERS: ATTEND Internal Medicine Medical Oncology
PROC: 30233N1 Transfusion of Nonautologous Red Blood Cells into Peripheral Vein, Percutaneous Approach (ICD-10-PCS; principal; 2019-05-02)
DX: D57.1 Sickle-cell disease without crisis (principal)
CPT/HCPCS: 86900; 86901; 36415; 36430; 86850; 85027; 86920; P9016; A9270 ×2; J7050

== ENCOUNTER 2019-06-16 10:35 | Inpatient (IN) | payer MEDICARE, MEDICAID ==
--- NOTE | 2019-06-16 11:10 | ER Document Report ---
ED Medical Screen (RME) - General Chief Complaint: Hip Pain Stated Complaint: HIP PAIN Time Seen by Provider: 06/16/19 11:00 Primary Care Provider: TITO SOFIA MD [Primary Care Provider] - Follow up as needed Mode of Arrival: Wheelchair Information source: Patient, Relative Notes: Patient presents with family member with complaints of left hip pain and inability to ambulate for the past week. Patient does have a history of bilateral hip fractures with repair complicated by infection. Patient is currently a resident of long term for rehab. Patient denies any new injury. I have greeted and performed a rapid initial assessment of this patient. A comprehensive ED assessment and evaluation of the patient, analysis of test results and completion of the medical decision making process will be conducted by additional ED providers. TRAVEL OUTSIDE OF THE [place] IN LAST 30 DAYS: No - Related Data Allergies/Adverse Reactions: No Known Drug Allergies Allergy (Unknown, Verified 06/16/19 10:37) Past Medical History - Past Medical History Cardiac Medical History: Reports: Hx Heart Murmur Denies: Hx Atrial Fibrillation, Hx Congestive Heart Failure, Hx Coronary Artery Disease, Hx Heart Attack, Hx Hypertension - ON METOPROLOL FOR HEART RATE, Hx Peripheral Vascular Disease, Hx Pulmonary Embolism Pulmonary Medical History: Denies: Hx Asthma, Hx Bronchitis, Hx COPD, Hx Pneumonia, Hx Tuberculosis Neurological Medical History: Reports: Hx Cerebrovascular Accident - ANEURYSM 2010, LEFT SIDED DEFICIT, Hx Seizures - ON MEDS Endocrine Medical History: Denies: Hx Graves' Disease, Hx Hyperthyroidism, Hx Hypothyroidism Renal/ Medical History: Denies: Hx Peritoneal Dialysis Malignancy Medical History: Denies Hx Leukemia, Denies Hx Lung Cancer GI Medical History: Reports: Hx Gastroesophageal Reflux Disease. Denies: Hx Pancreatitis, Hx Ulcer Musculoskeltal Medical History: Reports Hx Arthritis, Denies Hx Fibromyalgia, Denies Hx Multiple Sclerosis, Denies Hx Muscular Dystrophy, Denies Hx Systemic Lupus Erythematosus Psychiatric Medical History: Reports: Hx Anxiety, Hx Depression Denies: Hx Bipolar Disorder, Hx Dementia, Hx Schizophrenia Traumatic Medical History: Reports: Hx Fractures - proximal femur Infectious Medical History: Denies: Hx HIV Past Surgical History: Reports: Hx Cholecystectomy, Hx Oral Surgery - reconstruction, Hx Orthopedic Surgery - Patient underwent open reduction internal fixation of bilateral proximal fe, Other - Patient tracheostomy and PEG tube placement [facility] 3 years. Denies: Hx Appendectomy, Hx Bowel Surgery, Hx Coronary Artery Bypass Graft, Hx Gastric Bypass Surgery, Hx Herniorrhaphy, Hx Pacemaker, Hx Tonsillectomy - Immunizations Immunizations up to date: Yes Hx Diphtheria, Pertussis, Tetanus Vaccination: No History of Influenza Vaccine for 08/2017 - 12/2017 Season: Yes Influenza Administration Date for 08/2017 - 12/2017 Season: 08/01/18 Physical Exam - Vital signs Vitals: Temp Pulse Resp BP Pulse Ox 97.6 F 110 H 14 132/77 H 100 06/16/19 10:40 06/16/19 10:40 06/16/19 10:40 06/16/19 10:40 06/16/19 10:40 - General Notes: Left lateral hip pain, patient holding left lower extremity internally rotated for comfort Course - Vital Signs Vital signs: Temp Pulse Resp BP Pulse Ox 97.6 F 110 H 14 132/77 H 100 06/16/19 10:40 06/16/19 10:40 06/16/19 10:40 06/16/19 10:40 06/16/19 10:40 Doctor's Discharge - Discharge Referrals: TITO SOFIA MD [Primary Care Provider] - Follow up as needed
--- NOTE | 2019-06-16 11:56 | RADIOLOGY REPORT (SQ) ---
EXAM DESCRIPTION: FEMUR LEFT COMPLETED DATE/TIME: 06/16/2019 11:44 am REASON FOR STUDY: L hip/knee pain, unable to ambulate COMPARISON: None. NUMBER OF VIEWS: Two views. TECHNIQUE: Two radiographic images acquired of the left femur to include hip and knee in at least on e projection. LIMITATIONS: None. FINDINGS: MINERALIZATION: Osteopenia. BONES: Status post left hip total arthroplasty, partially imaged. No acute fracture. No worrisome b one lesions. SOFT TISSUES: No obvious swelling or foreign body. OTHER: No other significant finding. IMPRESSION: Status post left hip total arthroplasty, partially imaged. No obvious fracture or compo nent loosening. Osteopenia. TECHNICAL DOCUMENTATION: JOB ID: [id number] [employer]- All Rights Reserved Reading location - IP/workstation name: [email or web address]
--- NOTE | 2019-06-16 11:59 | RADIOLOGY REPORT (SQ) ---
EXAM DESCRIPTION: PELVIS AP COMPLETED DATE/TIME: 06/16/2019 11:44 am REASON FOR STUDY: L hip/knee pain, unable to ambulate COMPARISON: 08/22/2018 NUMBER OF VIEWS: One view TECHNIQUE: AP Pelvis LIMITATIONS: None. FINDINGS: MINERALIZATION: Osteopenia. HIPS: Status post bilateral hip total arthroplasty, with extensive heterotopic ossification about the bilateral arthroplasty components. PELVIS AND SACRUM: No obvious fracture or dislocation. No worrisome bone lesions. OTHER: No other significant finding. IMPRESSION: Status post bilateral hip total arthroplasty with extensive heterotopic ossification abo ut the bilateral arthroplasty components. There is significant osteopenia, which limits evaluation f or fracture. Within this limitation, no obvious fracture or dislocation of the included pelvis, sacr um, or hips. COMMENT: Pelvic fractures are often occult on plain radiographs. If strong clinical suspicion for f racture, recommend CT or MR. TECHNICAL DOCUMENTATION: JOB ID: [id number] [employer]- All Rights Reserved Reading location - IP/workstation name: [email or web address]
--- NOTE | 2019-06-16 14:40 | ER Document Report ---
Addendum entered and electronically signed by MAY CALDERÓN PA-C 06/16/19 20:10: Provider Note Provider Note: admission labs of cbc and cmp were ordered and pending at time hospitalist accepted pt and lab called and informed me pt had a hemoglobin of 6. 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 i did call hospitalist, dr washington, and inform him of this and he requested to type and cross the pt which i did and order 1u prbc's which i did. retic count pending at this time also however pt denies having any crisis's since he was 3yrs old. Original Note: HPI - HPI Patient complains to provider of: left hip pain, low back pain Time Seen by Provider: 06/16/19 11:00 Onset/Duration: Gradual, Constant, Worse Severity: Mild Pain Level: 2 Context: This is a 29 yr old male pt with the listed pmh, presenting with low back pain and left hip pain x 5 days. sx worsening to the point he can no longer weight bear. hx of bilat hip replacements with the left being in dec 2017 and the right being in aug 2018. underwent rehab and was ambulatory with a walker prior to 5 days ago. has a hx of chronic fecal and urinary incontinence sine the fractures in 2018 after a fall and also thought to be due to his sickle cell. he hasn't had a crisis since he was a small child and his sickle cell is controlled with hydroxyurea and blood transfusions. his uncle is his customer care consultant and gives most of the hx. Patient states that the pain is a sharp achy 8 out of 10 pain with radiation down his left leg. Patient states that movement and palpation make the pain worse and rest makes the pain better. Patient denies any numbness, tingling, or other change of bowel or bladder habits or signs or symptoms of saddle anesthesia. Patient states that secondary to the pain, they have come to the emergency department. remote lumbar surgery and bilat hip replacements. No new falls or trauma. no IV drug use. otc meds not helping much, he has oxycodone q6h at his facility that is not controlling his pain. no recent abx or steroids. no fevers, uti sx, or genitalia complaints. pt hasn't sought care until now. pcp is seth. orthosurg is haydee. Patient denies all other complaints at this time. Exacerbated by: Movement Relieved by: Remaining still Similar symptoms previously: No Recently seen / treated by doctor: No - ROS Systems Reviewed and Negative: Yes All other systems reviewed and negative - to include 10 systems, unless mentioned in the hpi Past Medical History - General Information source: Patient, Relative - uncle-magui - Social History Smoking Status: Never Smoker Chew tobacco use (# tins/day): No Frequency of alcohol use: None Drug Abuse: None Lives with: Shelter Family History: None, Reviewed & Not Pertinent, Hypertension, Other Patient has suicidal ideation: No Patient has homicidal ideation: No - Past Medical History Cardiac Medical History: Reports: Hx Heart Murmur Denies: Hx Atrial Fibrillation, Hx Congestive Heart Failure, Hx Coronary Artery Disease, Hx Heart Attack, Hx Hypertension - ON METOPROLOL FOR HEART RATE, Hx Peripheral Vascular Disease, Hx Pulmonary Embolism Pulmonary Medical History: Denies: Hx Asthma, Hx Bronchitis, Hx COPD, Hx Pneumonia, Hx Tuberculosis Neurological Medical History: Reports: Hx Cerebrovascular Accident - ANEURYSM 2010, LEFT SIDED DEFICIT, Hx Seizures - ON MEDS Endocrine Medical History: Denies: Hx Graves' Disease, Hx Hyperthyroidism, Hx Hypothyroidism Renal/ Medical History: Denies: Hx Peritoneal Dialysis Malignancy Medical History: Denies Hx Leukemia, Denies Hx Lung Cancer GI Medical History: Reports: Hx Gastroesophageal Reflux Disease. Denies: Hx Pancreatitis, Hx Ulcer Musculoskeletal Medical History: Reports Hx Arthritis, Denies Hx Fibromyalgia, Denies Hx Multiple Sclerosis, Denies Hx Muscular Dystrophy, Denies Hx Systemic Lupus Erythematosus Psychiatric Medical History: Reports: Hx Anxiety, Hx Depression Denies: Hx Bipolar Disorder, Hx Dementia, Hx Schizophrenia Traumatic Medical History: Reports: Hx Fractures - proximal femur, Hx Spine Fracture Infectious Medical History: Denies: Hx HIV Past Surgical History: Reports: Hx Cholecystectomy, Hx Oral Surgery - reconstruction, Hx Orthopedic Surgery - Patient underwent open reduction internal fixation of bilateral proximal fe, Other - Patient tracheostomy and PEG tube placement [facility] 3 years. Denies: Hx Appendectomy, Hx Bowel Surgery, Hx Coronary Artery Bypass Graft, Hx Gastric Bypass Surgery, Hx Herniorrhaphy, Hx Pacemaker, Hx Tonsillectomy - Immunizations Immunizations up to date: Yes Hx Diphtheria, Pertussis, Tetanus Vaccination: No Hx Pneumococcal Vaccination: 08/05/12 Vertical Provider Document - CONSTITUTIONAL Exam Limitations: Clinical Condition - pt is a poor historian-pts uncle who is at bedside and provides most of his care gives most of the history. Notes: Vital signs: All vital signs were reviewed per nursing notes. Gen. Appearance: Nontoxic, patient of stated age, sitting comfortably in the bed. pleasant, thin, chronically debilitated appearing young male, nontoxic, smiling, speaking in full sentences, in no sign of pain or resp distress, nontoxic, uncle at bedside Psychiatric: Alert and oriented x3, pleasant and very conversational, normal affect. Skin: Warm, pink, dry, normal turgor, no rashes. no grossly visible overlying skin changes or signs of trauma. HEENT: Normocephalic, atraumatic, no garcia signs. no raccoon eyes, pupils are equal and reactive to light, extraocular muscles intact, mucosal membranes moist, pink conjunctiva, no pharyngeal erythema, no tonsilar exudate. uvula midline. tongue protrudes midline Neck: Supple, no tenderness, no lymphadenopathy. full rom and full strength. no meningeal signs. no signs of central cord syndrome CV: Regular rate and rhythm, no murmurs Lungs: Clear to auscultation bilaterally, no wheezes, symmetrical chest rise. no chest wall ttp Abdomen: Soft, nontender, nondistended, good bowel sounds, no rebound, rigidity, guarding or peritoneal signs. No CVA tenderness bilaterally. This is a nonacute abdomen. No tenderness over McBurney's point. no grossly visible or palpable abdominal hernias Genitalia: pt deferred Rectal: deferred; however, no sign of loss of bowel or bladder, no soiling of clothing Back: There is increased tissue tension over the paralumbar musculature on the bilat L>R sides. Palpation to this region did reproduce patient's pain exactly. There is no tenderness to palpation along the midline of the cervical, thoracic or lumbar spine. There are no step-offs or deformities noted. no overlying skin changes. Extremities: Distal pulses two out of four, good capillary refill, no edema, cyanosis or clubbing. full rom and full strength in all extremities except left hip which he has severely decreased rom secondary to pain and holds it shortened and internally rotated; however, pts uncle states he usually holds its like this at baseline since his surgery just not this much, pt has pain on all hip roms severely limiting exam. no swelling or ttp of the extremities other than over left proximal and lateral hip. not able to assess gait. 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 no other shortening or rotation of the limbs. no other obvious deformities. Neuro: normal speech, Symmetric smile and faces. motor and sensation intact to light touch. - INFECTION CONTROL TRAVEL OUTSIDE OF THE [place] IN LAST 30 DAYS: No Course - Re-evaluation Re-evalutation: 06/16/19 19:11 Pt here for intractable left hip pain that is atraumatic worsening over the last 5 days and is no longer able to weight bear or ambulate. History of bilateral hip replacements and spinal fracture secondary to a fall last year. His triage left femur and left hip x-rays were unremarkable for anything acute per radiology however radiology recommended CT for further evaluation to rule out occult fracture per radiology and reviewed by myself. I did then order CT scans of his lumbar spine and left hip and they showed a questionable acetabular loosening of the left hip prosthesis secondary to a large medial lucency per radiology and reviewed by myself. I did did consult patient's orthopedist, Dr. Marcos, who advised he was out of town currently however if medicine will admit him for pain control he would consult on the patient. The patient was not able to be pain controlled here without his blood pressure dropping below 100 systolic. Secondary to this I did order basic labs and consult hospitalist, Dr. Washington, for consideration of admission, for pain control and ortho evaluation as dr marcos-ortho says he will consult on the pt however he was just not in town currently. cbc and cmp pending at time of dictation. dr washington did then graciously agree to accept the pt for further workup. care transferred to hospitalist in stable condition. please refer to his note for further details of the visit. On reexam, pt improved some with tx listed. remained stable. nontoxic. chronically ill and debilitated appearing-nontoxic . not well pain controlled. tolerating po. case discussed with ER Attending, Dr. Chance, who directed and agrees with p [facility] and advised to follow dr marcos's, ortho's, recommendations. Documentation achieved through voice recording which my lead to some occasional accidental typographical errors. Extensive efforts have been made to proof read documentation to make sure these are the least as possible. Category Date Time Status CT [CT LT LOWER EXTREMITY WITHOUT] [CT] Stat Exams 06/16/19 15:[address] [CT LUMBAR SPINE WITHOUT] [CT] Stat Exams 06/16/19 15:02 Completed FEMUR LEFT [RAD] Stat Exams 06/16/19 11:07 Completed PELVIS AP [RAD] Stat Exams 06/16/19 11:07 Completed CBC WITH DIFF [HEME] Stat Lab 06/16/19 19:02 Ordered CMP [COMPREHENSIVE METABOLIC PANEL] [CHEM] Stat Lab 06/16/19 19:02 Ordered URINALYSIS [URIN] Stat Lab 06/16/19 17:05 Completed Morphine Sulfate [Morphine 10 mg/ml Inj] Med 06/16/19 19:02 Once 2 mg IV NOW ONE Normal Saline 1000 ml [NaCl 0.9% 1000 ml IV Soln] 1,000 Med 06/16/19 19:05 Ordered ml IV BOLUS Ondansetron HCl/Pf [Zofran Inj/Pf 4 mg/2 ml Sdv] Med 06/16/19 19:03 Once 4 mg IV NOW ONE Oxycodone HCl [Oxy-Ir 5 mg Tablet] Med 06/16/19 14:52 Discontinued 5 mg PO NOW ONE Oxycodone HCl [Oxy-Ir 5 mg Tablet] Med 06/16/19 17:30 Discontinued 5 mg PO NOW ONE - Vital Signs Vital signs: Temp Pulse Resp BP Pulse Ox 97.6 F 110 H 14 132/77 H 100 06/16/19 10:40 06/16/19 10:40 06/16/19 10:40 06/16/19 10:40 06/16/19 10:40 06/16/19 19:19 Temp Pulse Pulse Resp BP BP Pulse Ox 06/16/19 19:04 93 18 102/62 98 06/16/19 10:40 97.6 F 110 H 14 132/77 H 100 - Laboratory Result Diagrams: 06/16/19 19:17 06/16/19 19:17 Laboratory results interpreted by me: 06/16/19 19:19 Labs- Entire Visit 06/16/19 17:05 Urine Color ALEJANDRO Urine Appearance CLEAR Urine pH 6.0 Ur Specific [place] 1.014 Urine Protein 30 H Urine Glucose (UA) NEGATIVE Urine Ketones NEGATIVE Urine Blood SMALL H Urine Nitrite NEGATIVE Urine Bilirubin NEGATIVE Urine Urobilinogen 2.0 H Ur Leukocyte Esterase NEGATIVE Urine WBC (Auto) 2 Urine RBC (Auto) 2 Squamous Epi Cells Auto <1 Urine Mucus (Auto) RARE Urine Ascorbic Acid NEGATIVE - Diagnostic Test Radiology reviewed: Image reviewed, Reports reviewed Radiology results interpreted by me: 06/16/19 19:10 Femur X-Ray 06/16/19 11:07 IMPRESSION: Status post left hip total arthroplasty, partially imaged. No obvious fracture or component loosening. Osteopenia. Pelvis X-Ray 06/16/19 11:07 IMPRESSION: Status post bilateral hip total arthroplasty with extensive heterotopic ossification about the bilateral arthroplasty components. There is significant osteopenia, which limits evaluation for fracture. Within this limitation, no obvious fracture or dislocation of the included pelvis, sacrum, or hips. Lower Extremity CT 06/16/19 15:02 IMPRESSION: 1. Osteopenia, which generally limits sensitivity for fracture. Within this limitation, no displaced fracture of sacrum, pelvis, or hips. 2. Status post bilateral total hip arthroplasty with extensive heterotopic ossification. There is no obvious fracture and general configuration is not significantly changed compared to prior examination dated 08/22/2018. 3. There may be acetabular component loosening on the left evidenced by a substantial medial lucency, which is difficult to compare to prior radiographs due to rotation and alignment. The distal femoral components are not completely imaged. 4. Distended urinary bladder. Correlate for urinary retention. Lumbar Spine CT 06/16/19 15:02 IMPRESSION: 1. No acute fracture or dislocation of the lumbar spine. Redemonstrated compression deformity of L3 status post kyphoplasty. 2. Osteopenia. 3. Very distended urinary bladder. Correlate for urinary retention. Discharge - Discharge Clinical Impression: Intractable pain, Left hip pain Postoperative complication Qualifiers: Surgical complication system/body Area: [id number] Encounter type: initial encounter Postoperative shock type: unspecified shock type Condition: Fair Disposition: ADMITTED INPATIENT Admitting Provider: Felix (Hospitalist) - paged at 7:10pm for admission-stated he was taking report and would return my call for consult. dr washington did then return my call at 7:25p and graciously agreed to accept the pt to their service. Unit Admitted: Medical Floor Referrals: TITO SOFIA MD [Primary Care Provider] - Follow up as needed
[2019-06-16] MEDS ORDERED: OXYCODONE HCL IR 5 MG TABLET PO ONE ×2 (14:52→17:30)
--- NOTE | 2019-06-16 15:57 | RADIOLOGY REPORT (SQ) ---
EXAM DESCRIPTION: CT LUMBAR SPINE WITHOUT COMPLETED DATE/TIME: 06/16/2019 3:45 pm REASON FOR STUDY: left hip, low back pain. nonweightbearing COMPARISON: None. TECHNIQUE: Axial images acquired through the lumbar spine without intravenous contrast. Images revi ewed with lung, soft tissue and bone windows. Reconstructed coronal and sagittal MPR images reviewed . All images stored on PACS. All CT scanners at this facility use dose modulation, iterative reconstruction, and/or weight based d osing when appropriate to reduce radiation dose to as low as reasonably achievable (ALARA). [facility]: Dose Right [facility]: CareDose [facility]: Dose Right [facility]: Teradose 4D [facility]: [employer] RADIATION DOSE: 478 mGy cm LIMITATIONS: None. FINDINGS: SEGMENTATION: Normal. No transitional anatomy. ALIGNMENT: Normal. VERTEBRAL BODIES: Osteopenia. Redemonstrated compression deformity of L3 status post kyphoplasty. DISCS: No significant protrusions. Study limited by lack of intrathecal contrast. PEDICLES, TRANSVERSE PROCESSES: No fractures. No dislocation. No acute findings. FACETS, POSTERIOR ELEMENTS: No fractures. No dislocation. No spinal stenosis. HARDWARE: None in the spine. VISUALIZED RIBS: No fractures. SOFT TISSUES: Very distended urinary bladder. OTHER: No other significant finding. IMPRESSION: 1. No acute fracture or dislocation of the lumbar spine. Redemonstrated compression de formity of L3 status post kyphoplasty. 2. Osteopenia. 3. Very distended urinary bladder. Correlate for urinary retention. TECHNICAL DOCUMENTATION: JOB ID: [id number] Quality ID # [id number]: Final reports with documentation of one or more dose reduction techniques (e.g., Au tomated exposure control, adjustment of the mA and/or kV according to patient size, use of iterative reconstruction technique) 2010 [employer]- All Rights Reserved Reading location - IP/workstation name: [email or web address]
--- NOTE | 2019-06-16 16:09 | RADIOLOGY REPORT (SQ) ---
EXAM DESCRIPTION: CT LT LOWER EXTREMITY WITHOUT COMPLETED DATE/TIME: 06/16/2019 3:45 pm REASON FOR STUDY: left hip, low back pain. nonweightbearing COMPARISON: Same day radiographs, pelvic radiographs, 08/22/2018 TECHNIQUE: CT scan of the pelvis performed without intravenous or oral contrast. Images reviewed wi th soft tissue and bone windows. Reconstructed coronal and sagittal MPR images reviewed. All images stored on PACS. All CT scanners at this facility use dose modulation, iterative reconstruction, and/or weight based d osing when appropriate to reduce radiation dose to as low as reasonably achievable (ALARA). [facility]: Dose Right [facility]: CareDose [facility]: Dose Right [facility]: Teradose 4D [facility]: Smart [employer] RADIATION DOSE: CT Rad equipment meets quality standard of care and radiation dose reduction techniq ues were employed. CTDIvol: 11.2 mGy. DLP: 350 mGy-cm. mGy. LIMITATIONS: None. FINDINGS: PELVIC BONES: No acute fracture. No worrisome bone lesions. VISUALIZED SPINE: No acute findings. HIPS: Status post bilateral total hip arthroplasty with extensive heterotopic ossification. There is no obvious fracture and general configuration is not significantly changed compared to prior examina tion dated 08/22/2018. There may be a acetabular component loosening on the left, which is difficult to compare to prior radiographs due to rotation and alignment. The distal femoral components are no t completely imaged. PELVIC SOFT TISSUES: No significant findings. EXTRAPELVIC SOFT TISSUES: No significant findings. OTHER: Osteopenia. Distended urinary bladder. IMPRESSION: 1. Osteopenia, which generally limits sensitivity for fracture. Within this limitation , no displaced fracture of sacrum, pelvis, or hips. 2. Status post bilateral total hip arthroplasty with extensive heterotopic ossification. There is no obvious fracture and general configuration is not significantly changed compared to prior examinatio n dated 08/22/2018. 3. There may be acetabular component loosening on the left evidenced by a substantial medial lucency, which is difficult to compare to prior radiographs due to rotation and alignment. The distal femoral components are not completely imaged. 4. Distended urinary bladder. Correlate for urinary retention. TECHNICAL DOCUMENTATION: JOB ID: [id number] Quality ID # [id number]: Final reports with documentation of one or more dose reduction techniques (e.g., Au tomated exposure control, adjustment of the mA and/or kV according to patient size, use of iterative reconstruction technique) 2010 [employer] [facility]- All Rights Reserved Reading location - IP/workstation name: [email or web address]
[2019-06-16 17:40] LABS: APPEARANCE,URINE CLEAR; BILIRUBIN,URINE NEGATIVE (NEGATIVE); COLOR,URINE AMBER; GLUCOSE, URINE NEGATIVE (NEGATIVE); KETONES,URINE NEGATIVE (NEGATIVE); LEUKOCYTE ESTERASE,URINE NEGATIVE (NEGATIVE); NITRITE,URINE NEGATIVE (NEGATIVE); PROTEIN,URINE 30 mg/dL (NEGATIVE); URINE SPECIFIC GRAVITY 1.014
[2019-06-16] MEDS ORDERED: MORPHINE SULFATE 10 MG/ML INJ IV ONE (19:02)
[2019-06-16] MEDS ORDERED: ONDANSETRON HCL INJ/PF 4 MG/2 ML SDV IV ONE (19:03)
[2019-06-16] MEDS ORDERED: NORMAL SALINE 1000 ML 1,000 ML IV ONE (19:05)
[2019-06-16 19:35] LABS: ABSOLUTE BASOPHILS # (AUTO) 0.1 10^3/uL (0.0-0.2); ABSOLUTE EOSINOPHILS # (AUTO) 0.1 10^3/uL (0.0-0.6); ABSOLUTE LYMPHOCYTES (AUTO) 2.9 10^3/uL (0.5-4.7); ABSOLUTE NEUT (AUTO) 7.7 10^3/uL (1.7-8.2); BASOPHILS % (AUTO) 0.5 % (0-2); EOSINOPHILS % (AUTO) 0.8 % (0-6); LYMPHOCYTES % (AUTO) 24.5 % (13-45); MEAN CORPUSCULAR HEMOGLOBIN 30.8 pg (27.0-33.4); MEAN CORPUSCULAR HGB CONC 33.8 g/dL (32.0-36.0); MEAN CORPUSCULAR VOLUME 91 fl (80-97); MONOCYTES % (AUTO) 8.3 % (3-13); PLATELET COUNT 385 10^3/uL (150-450); RED BLOOD COUNT 1.97 10^6/uL (4.35-5.55); RED CELL DISTRIBUTION WIDTH 17.3 % (11.5-14.0); SEGMENTED NEUTROPHILS % (AUTO) 65.9 % (42-78); TOTAL CELLS COUNTED % (AUTO) 100 %; WHITE BLOOD COUNT 11.7 10^3/uL (4.0-10.5)
[2019-06-16 19:37] LABS: HEMOGLOBIN 6.1 g/dL (13.5-17.0)
[2019-06-16] MEDS ORDERED: NORMAL SALINE 250 ML IV PRN (19:42)
[2019-06-16 19:54] LABS: ALBUMIN 3.6 g/dL (3.5-5.0); ALKALINE PHOSPHATASE 107 U/L (38-126); ANION GAP 7 (5-19); ASPARTATE AMINO TRANSFERASE 71 U/L (17-59); BILIRUBIN,DIRECT 0.3 mg/dL (0.0-0.4); BLOOD UREA NITROGEN 12 mg/dL (7-20); CALCIUM 8.9 mg/dL (8.4-10.2); CARBON DIOXIDE 29 mmol/L (22-30); CHLORIDE 106 mmol/L (98-107); GLUCOSE 102 mg/dL (75-110); POTASSIUM 4.3 mmol/L (3.6-5.0); TOTAL PROTEIN 8.5 g/dL (6.3-8.2)
[2019-06-16] MEDS ORDERED: MAG HYDROX/AL HYDROX/SIMETH SUSP 30 ML UDCUP PO PRN (20:02)
[2019-06-16] MEDS ORDERED: OXYCODONE-ACETAMINOPHEN 5-325 MG TABLET PO PRN ×2 (20:02→21:23)
[2019-06-16] MEDS ORDERED: MAGNESIUM HYDROXIDE SUSP 30 ML UDCUP PO PRN (20:02)
[2019-06-16] MEDS ORDERED: ZOLPIDEM TARTRATE 5 MG TABLET PO PRN (20:02)
[2019-06-16] MEDS ORDERED: ONDANSETRON HCL INJ/PF 4 MG/2 ML SDV IV PRN (20:02)
[2019-06-16] MEDS ORDERED: ONDANSETRON 4 MG TAB.RAPDIS PO PRN (20:02)
[2019-06-16] MEDS ORDERED: ACETAMINOPHEN 325 MG TABLET PO PRN (20:02)
[2019-06-16 20:06] LABS: ABSOLUTE RETICS # 0.022 10^6/uL (0.028-0.122); RETICULOCYTE COUNT (AUTO) 1.14 % (0.66-2.85)
[2019-06-16] MEDS ORDERED: NORMAL SALINE 1,000 ML IV PRN (20:16)
--- NOTE | 2019-06-16 20:29 | PDOC H&P ---
History of Present Illness Admission Date/PCP: 06/16/19 19:45 TITO SOFIA MD Patient complains of: Intractable low back pain and left hip pain History of Present Illness: EMIL BARNES is a 29 year old -Filipino male with history of L3 spinal fracture and seizure disorder as well as sickle cell disease who is status post bilateral total hip arthroplasty, who presented to the emergency room with acute onset of intractable low back pain as well as left hip pain which have been worsening over the last week impeding his ambulation. Today he was not able to ambulate. He denied any paresthesias or focal muscle weakness. No fever or chills. No nausea or vomiting or abdominal pain. He denies any headache or dizziness or blurred vision. No chest pain or dyspnea or palpitations. No melena or bright red bleeding per rectum or hematemesis. No other bleeding diathesis. Upon presentation to the emergency room he was tachycardic with heart rate of 110 blood pressure was 132/77 with otherwise normal vital signs. Labs are remarkable for hemoglobin of 6.1 hematocrit of 18 lower than his previous levels and WBC of 11.7 with platelets of 385. CMP was remarkable for elevated AST of 71 and total protein of 8.5. UA showed 30 protein only 2 WBCs and 2 RBCs with negative nitrite and negative leukocyte esterase. He had radiograph studies in cluding x-rays left hip CT as well as lumbar CT, pelvic and femur x-ray there were essentially unremarkable except for left hip acetabular component lucency with questionable loosening. Dr. brush his orthopedic surgeon is aware. The patient was given hydration with IV normal saline as well as oxycodone as well as morphine sulfate and Zofran. He was typed and crossmatched and will be transfused 1 unit of packed red blood cells for worsening anemia. He will be admitted to a medically monitored bed for further evaluation and management. Past Medical History Cardiac Medical History: Reports: Heart Murmur Denies: Atrial Fibrillation, Congestive Heart Failure, Coronary Artery Disease, Myocardial Infarction, Hypertension - ON METOPROLOL FOR HEART RATE, Peripheral Vascular Disease, Pulmonary Embolism Pulmonary Medical History: Denies: Asthma, Bronchitis, Chronic Obstructive Pulmonary Disease (COPD), Pneumonia, Tuberculosis Neurological Medical History: Reports: Seizures - ON MEDS Endocrine Medical History: Denies: Hyperthyroidism, Hypothyroidism Malignancy Medical History: Denies: Leukemia, Lung Cancer GI Medical History: Reports: Gastroesophageal Reflux Disease Musculoskeltal Medical History: Reports: Arthritis Denies: Fibromyalgia Psychiatric Medical History: Reports: Depression Denies: Bipolar Disorder, Dementia Hematology: Reports: Anemia - SICKLE-CELL, Sickle Cell Disease, Bleeding Tendencies Denies: Hemophilia Infectious Medical History: Denies: HIV Past Surgical History Past Surgical History: Reports: Cholecystectomy, Orthopedic Surgery - Patient underwent open reduction internal fixation of bilateral proximal fe, Other - Patient tracheostomy and PEG tube placement [facility] 3 years Denies: Appendectomy, Coronary Artery Bypass Graft, Gastric Bypass Surgery, Herniorrhaphy, Pacemaker, Tonsillectomy Social History Lives with: Snf Smoking Status: Never Smoker Frequency of Alcohol Use: None Hx Recreational Drug Use: No Drugs: None Hx Prescription Drug Abuse: No Family History Family History: None, Reviewed & Not Pertinent, Hypertension, Other Parental Family History Reviewed: Yes Children Family History Reviewed: Yes Sibling(s) Family History Reviewed.: Yes Medication/Allergy Home Medications: RX: Hydroxyurea [Hydrea 500 mg Capsule] 500 mg PO DAILY 08/21/18 RX: Levetiracetam [Keppra 500 mg Tablet] 500 mg PO Q12 08/21/18 RX: Folic Acid 1 mg PO DAILY #90 tablet 08/27/18 RX: Metoprolol Succinate [Toprol Xl 25 mg Tab.sr] 12.5 mg PO Q12 tab.sr.24h 08/27/18 RX: Oxycodone HCl/Acetaminophen [Percocet 5-325 mg Tablet] 1 tab PO Q6HP PRN #120 tablet 08/27/18 Epoetin Denny [Procrit Inj 40,000 Unit/1 Ml Vial (Nrd-Subq)] 40,000 unit SUBCUT ASDIR PRN 06/16/19 Mirtazapine [Remeron 15 mg Tablet] 15 mg PO QHS 06/16/19 Multivitamin/Iron/Folic Acid [Centrum Adults Tablet] 1 each PO DAILY 06/16/19 Tamsulosin HCl [Flomax 0.4 mg Cap.sr] 0.4 mg PO DAILY 06/16/19 Allergies/Adverse Reactions: No Known Drug Allergies Allergy (Unknown, Verified 06/16/19 10:37) Review of Systems Review of Systems: As per history of present illness. All pertinent systems were reviewed above. Constitutional, HEENT, cardiovascular, respiratory, GI, , musculoskeletal, neuro, psychiatric, endocrine, integumentary and hematologic systems were reviewed and are otherwise negative/unremarkable except for positive findings mentioned above in the HPI. Physical Exam Vital Signs: Temp Pulse Resp BP Pulse Ox 97.6 F 93 18 102/62 98 06/16/19 10:40 06/16/19 19:04 06/16/19 19:04 06/16/19 19:04 06/16/19 19:04 Intake & Output 06/15/19 06/16/19 06/17/19 06:59 06:59 06:59 Weight 51.71 kg Generally: Pleasant young gentleman in no acute distress Vital signs-as listed Head - atraumatic, normocephalic. Pupils - equal, round and reactive to light and accommodation. Extraocular movements are intact. No scleral icterus. Oropharynx - moist mucous membranes and tongue. No pharyngeal erythema or exudate. Neck - supple. No JVD. Carotid pulses 2+ bilaterally. No carotid bruits. No palpable thyromegaly or lymphadenopathy. Cardiovascular - regular rate and rhythm. Normal S1 and S2. No murmurs, gallops or rubs. Lungs - clear to auscultation bilaterally. Abdomen - soft and nontender. Positive bowel sounds. No palpable organomegaly or masses. Extremities - no pitting edema, clubbing or cyanosis. Neuro - grossly non-focal. Skin - no rashes. and rectal exam - deferred. Results Laboratory Results: 06/16/19 19:17 06/16/19 19:17 06/16/19 06/16/19 06/16/19 17:05 19:17 19:17 WBC 11.7 H RBC 1.97 L Hgb 6.1 L Hct 18.0 L MCV 91 MCH 30.8 MCHC 33.8 RDW 17.3 H Plt Count 385 Seg Neutrophils % 65.9 Lymphocytes % 24.5 Monocytes % 8.3 Eosinophils % 0.8 Basophils % 0.5 Absolute Neutrophils 7.7 Absolute Lymphocytes 2.9 Absolute Monocytes 1.0 Absolute Eosinophils 0.1 Absolute Basophils 0.1 Retic Count (auto) Absolute Retic Sodium 141.6 Potassium 4.3 Chloride 106 Carbon Dioxide 29 Anion Gap 7 BUN 12 Creatinine 0.58 Est GFR ( Amer) > 60 Est GFR (Non-Af Amer) > 60 Glucose 102 Calcium 8.9 Total Bilirubin 1.0 AST 71 H Alkaline Phosphatase 107 Total Protein 8.5 H Albumin 3.6 Urine Color ALEJANDRO Urine Appearance CLEAR Urine pH 6.0 Ur Specific [place] 1.014 Urine Protein 30 H Urine Glucose (UA) NEGATIVE Urine Ketones NEGATIVE Urine Blood SMALL H Urine Nitrite NEGATIVE Ur Leukocyte Esterase NEGATIVE Urine WBC (Auto) 2 Urine RBC (Auto) 2 06/16/19 19:17 WBC RBC Hgb Hct MCV MCH MCHC RDW Plt Count Seg Neutrophils % Lymphocytes % Monocytes % Eosinophils % Basophils % Absolute Neutrophils Absolute Lymphocytes Absolute Monocytes Absolute Eosinophils Absolute Basophils Retic Count (auto) 1.14 Absolute Retic 0.022 L Sodium Potassium Chloride Carbon Dioxide Anion Gap BUN Creatinine Est GFR ( Amer) Est GFR (Non-Af Amer) Glucose Calcium Total Bilirubin AST Alkaline Phosphatase Total Protein Albumin Urine Color Urine Appearance Urine pH Ur Specific [place] Urine Protein Urine Glucose (UA) Urine Ketones Urine Blood Urine Nitrite Ur Leukocyte Esterase Urine WBC (Auto) Urine RBC (Auto) Impressions: Femur X-Ray 06/16/19 11:07 IMPRESSION: Status post left hip total arthroplasty, partially imaged. No obvious fracture or component loosening. Osteopenia. Pelvis X-Ray 06/16/19 11:07 IMPRESSION: Status post bilateral hip total arthroplasty with extensive heterotopic ossification about the bilateral arthroplasty components. There is significant osteopenia, which limits evaluation for fracture. Within this limitation, no obvious fracture or dislocation of the included pelvis, sacrum, or hips. Lower Extremity CT 06/16/19 15:02 IMPRESSION: 1. Osteopenia, which generally limits sensitivity for fracture. Within this limitation, no displaced fracture of sacrum, pelvis, or hips. 2. Status post bilateral total hip arthroplasty with extensive heterotopic ossification. There is no obvious fracture and general configuration is not significantly changed compared to prior examination dated 08/22/2018. 3. There may be acetabular component loosening on the left evidenced by a substantial medial lucency, which is difficult to compare to prior radiographs due to rotation and alignment. The distal femoral components are not completely imaged. 4. Distended urinary bladder. Correlate for urinary retention. Lumbar Spine CT 06/16/19 15:02 IMPRESSION: 1. No acute fracture or dislocation of the lumbar spine. Redemonstrated compression deformity of L3 status post kyphoplasty. 2. Osteopenia. 3. Very distended urinary bladder. Correlate for urinary retention. Assessment and Plan - Diagnosis (1) Intractable low back pain Is this a current diagnosis for this admission?: Yes Plan: The patient will be admitted to an medically monitored bed. He will be placed on pain management with as needed IV morphine sulfate and p.o. Percocet. We will add as needed Toradol as needed. Orthopedic consultation will be obtained. (2) Left hip pain Is this a current diagnosis for this admission?: Yes Plan: Orthopedic consultation be obtained especially given left acetabular component lucency and possible loosening on his hip prosthesis.. (3) Sickle cell anemia Qualifiers: Sickle-cell associated disorders: without crisis Qualified Code(s): D57.1 - 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 Is this a current diagnosis for this admission?: Yes Plan: He will be typed and crossmatch and transfuse 1 unit of packed red blood cells for worsening anemia. Will check stool Hemoccult. (4) Seizure disorder Is this a current diagnosis for this admission?: Yes Plan: We will continue Keppra. (5) DVT prophylaxis Is this a current diagnosis for this admission?: Yes Plan: Subcutaneous Lovenox. - Time Medications reviewed and adjusted accordingly: Yes Anticipated discharge: Home Within: within 72 hours - Inpatient Certification Medical Necessity: Need for Pain Control - And orthopedic evaluation plus minus potential need for intervention, Risk of Complication if Not Cared For in Hospital - Plan Summary Plan Summary: The plan of care was discussed in details with the patient. I answered all questions. The patient agreed to proceed with the above-mentioned plan. The patient is presumably full code. This note was created by [employer] software and may contain typo errors that may have not been proofread.
[2019-06-16 21:31] LABS: ABSOLUTE BASOPHILS # (AUTO) 0.1 10^3/uL (0.0-0.2); ABSOLUTE EOSINOPHILS # (AUTO) 0.2 10^3/uL (0.0-0.6); ABSOLUTE LYMPHOCYTES (AUTO) 2.6 10^3/uL (0.5-4.7); ABSOLUTE NEUT (AUTO) 7.3 10^3/uL (1.7-8.2); BASOPHILS % (AUTO) 1.1 % (0-2); EOSINOPHILS % (AUTO) 1.5 % (0-6); HEMATOCRIT 16.9 % (37.9-51.0); LYMPHOCYTES % (AUTO) 23.3 % (13-45); MEAN CORPUSCULAR HEMOGLOBIN 30.4 pg (27.0-33.4); MEAN CORPUSCULAR HGB CONC 33.4 g/dL (32.0-36.0); MEAN CORPUSCULAR VOLUME 91 fl (80-97); PLATELET COUNT 357 10^3/uL (150-450); RED BLOOD COUNT 1.85 10^6/uL (4.35-5.55); RED CELL DISTRIBUTION WIDTH 17.4 % (11.5-14.0); SEGMENTED NEUTROPHILS % (AUTO) 65.1 % (42-78); TOTAL CELLS COUNTED % (AUTO) 100 %; WHITE BLOOD COUNT 11.2 10^3/uL (4.0-10.5)
[2019-06-16 21:33] LABS: HEMOGLOBIN 5.6 g/dL (13.5-17.0)
[2019-06-16] MEDS: MORPHINE SULFATE 10 MG/ML INJ IV PRN (23:10)
[2019-06-16] MEDS: LEVETIRACETAM 500 MG TABLET PO SCH (23:21)
[2019-06-16] MEDS: METOPROLOL SUCCINATE 25 MG TAB.SR.24H PO SCH (23:21)
[2019-06-16] MEDS ORDERED: NORMAL SALINE 1000 ML 1,000 ML IV PRN (23:29)
[2019-06-17] MEDS: OXYCODONE-ACETAMINOPHEN 5-325 MG TABLET PO PRN ×5 (00:22→22:59)
[2019-06-17 04:26] LABS: ABSOLUTE BASOPHILS # (AUTO) 0.1 10^3/uL (0.0-0.2); ABSOLUTE EOSINOPHILS # (AUTO) 0.2 10^3/uL (0.0-0.6); ABSOLUTE LYMPHOCYTES (AUTO) 2.8 10^3/uL (0.5-4.7); ABSOLUTE MONOCYTES (AUTO) 1.2 10^3/uL (0.1-1.4); ABSOLUTE NEUT (AUTO) 7.3 10^3/uL (1.7-8.2); BASOPHILS % (AUTO) 0.6 % (0-2); EOSINOPHILS % (AUTO) 1.5 % (0-6); HEMATOCRIT 20.3 % (37.9-51.0); LYMPHOCYTES % (AUTO) 24.1 % (13-45); MEAN CORPUSCULAR HEMOGLOBIN 30.2 pg (27.0-33.4); MEAN CORPUSCULAR HGB CONC 33.9 g/dL (32.0-36.0); MEAN CORPUSCULAR VOLUME 89 fl (80-97); MONOCYTES % (AUTO) 10.2 % (3-13); PLATELET COUNT 316 10^3/uL (150-450); RED BLOOD COUNT 2.28 10^6/uL (4.35-5.55); RED CELL DISTRIBUTION WIDTH 16.9 % (11.5-14.0); SEGMENTED NEUTROPHILS % (AUTO) 63.6 % (42-78); TOTAL CELLS COUNTED % (AUTO) 100 %; WHITE BLOOD COUNT 11.5 10^3/uL (4.0-10.5)
[2019-06-17 04:30] LABS: HEMOGLOBIN 6.9 g/dL (13.5-17.0)
[2019-06-17 04:44] LABS: ANION GAP 7 (5-19); BLOOD UREA NITROGEN 11 mg/dL (7-20); CALCIUM 8.6 mg/dL (8.4-10.2); CARBON DIOXIDE 27 mmol/L (22-30); CHLORIDE 110 mmol/L (98-107); GLUCOSE 122 mg/dL (75-110); POTASSIUM 4.2 mmol/L (3.6-5.0)
[2019-06-17] MEDS: MORPHINE SULFATE 10 MG/ML INJ IV PRN (04:48)
[2019-06-17 07:42] LABS: ALKALINE PHOSPHATASE 77 U/L (38-126); ASPARTATE AMINO TRANSFERASE 41 U/L (17-59); BILIRUBIN,DIRECT 0.3 mg/dL (0.0-0.4); BILIRUBIN,TOTAL 0.8 mg/dL (0.2-1.3); TOTAL PROTEIN 7.2 g/dL (6.3-8.2)
[2019-06-17] MEDS ORDERED: (PENDING PHARMACY ID) (Multivitamin/Iron/Folic Acid [Centrum Adults Tablet] 1 EACH) PO SCH (10:00)
[2019-06-17] MEDS: ENOXAPARIN SODIUM INJ 40 MG/0.4 ML DISP.SYRIN SUBCUT SCH (10:52)
[2019-06-17] MEDS: TAMSULOSIN HCL 0.4 MG CAP.SR.24H PO SCH (10:53)
[2019-06-17] MEDS: MULTIVITAMIN TABLET PO SCH (10:53)
[2019-06-17] MEDS: FOLIC ACID 1 MG TABLET PO SCH (10:53)
[2019-06-17] MEDS: METOPROLOL SUCCINATE 25 MG TAB.SR.24H PO SCH (10:53)
[2019-06-17] MEDS: LEVETIRACETAM 500 MG TABLET PO SCH ×2 (10:54→22:59)
[2019-06-17] MEDS: HYDROXYUREA 500 MG CAPSULE PO SCH (10:56)
[2019-06-17] MEDS ORDERED: NORMAL SALINE 1000 ML 1,000 ML IV ONE (13:45)
--- NOTE | 2019-06-17 17:47 | Progress Note Acknowledgement ---
Progress Note Acknowledgement Progess Note Acknowledgement: I, the undersigned member of the medical staff with appropriate privileges and with supervisory authority over Nora Jimenez, a [facility] practice allied health professional, acknowledge that I have reviewed the progress notes entered on this patient, and in my professional judgment believe that the assessment made and/or any care evidenced was appropriate
--- NOTE | 2019-06-17 17:53 | PDOC PROGRESS REPORT ---
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 Patient was seen on afternoon rounds. He is found resting in bed comfortably on room air. He reports that his pain is well controlled at present, but is not ambulatory due to severe pain. He denies fever, chills, chest pain, dyspnea, cough, abdominal pain, nausea vomiting diarrhea, or sickle cell crisis pain at this time. He has no questions or concerns. No concerns per nursing. Reason For Visit: INTRACTABLE LOW BACK AND HIP PAIN, INABILITY TO Physical Exam Vital Signs: Temp Pulse Resp BP Pulse Ox 97.9 F 75 19 105/68 99 06/17/19 12:00 06/17/19 12:00 06/17/19 12:00 06/17/19 12:00 06/17/19 12:00 Intake & Output 06/16/19 06/17/19 06/18/19 06:59 06:59 06:59 Intake Total 610 Output Total 500 Balance 110 Weight 51.71 kg General appearance: PRESENT: no acute distress, cooperative - Pleasant/polite, thin, well-developed Head exam: PRESENT: atraumatic, normocephalic Eye exam: PRESENT: conjunctiva pink, EOMI, PERRLA. ABSENT: scleral icterus Ear exam: PRESENT: normal external ear exam Mouth exam: PRESENT: moist, tongue midline Neck exam: PRESENT: other - Healed tracheostomy. ABSENT: carotid bruit, JVD, lymphadenopathy, thyromegaly Respiratory exam: PRESENT: clear to auscultation ishan, symmetrical, unlabored. ABSENT: rales, rhonchi, wheezes Cardiovascular exam: PRESENT: RRR, +S1, +S2. ABSENT: diastolic murmur, rubs, systolic murmur Pulses: PRESENT: normal dorsalis pedis pul Vascular exam: PRESENT: normal capillary refill GI/Abdominal exam: PRESENT: normal bowel sounds, soft. ABSENT: distended, guarding, mass, organolmegaly, rebound, tenderness Rectal exam: PRESENT: deferred Extremities exam: PRESENT: full ROM - Right hip limited secondary to pain, tenderness - Right hip. ABSENT: calf tenderness, clubbing, pedal edema Neurological exam: PRESENT: alert, awake, oriented to person, oriented to place, oriented to time, oriented to situation, CN II-XII grossly intact, other - Forgetful. ABSENT: motor sensory deficit Psychiatric exam: PRESENT: appropriate affect, normal mood. ABSENT: homicidal ideation, suicidal ideation Skin exam: PRESENT: dry, intact, warm. ABSENT: cyanosis, rash Results Laboratory Results: 06/17/19 03:53 06/17/19 03:53 06/16/19 06/16/19 06/16/19 19:17 19:17 19:17 WBC 11.7 H RBC 1.97 L Hgb 6.1 L Hct 18.0 L MCV 91 MCH 30.8 MCHC 33.8 RDW 17.3 H Plt Count 385 Seg Neutrophils % 65.9 Lymphocytes % 24.5 Monocytes % 8.3 Eosinophils % 0.8 Basophils % 0.5 Absolute Neutrophils 7.7 Absolute Lymphocytes 2.9 Absolute Monocytes 1.0 Absolute Eosinophils 0.1 Absolute Basophils 0.1 Retic Count (auto) 1.14 Absolute Retic 0.022 L Sodium 141.6 Potassium 4.3 Chloride 106 Carbon Dioxide 29 Anion Gap 7 BUN 12 Creatinine 0.58 Est GFR ( Amer) > 60 Est GFR (Non-Af Amer) > 60 Glucose 102 Calcium 8.9 Total Bilirubin 1.0 AST 71 H Alkaline Phosphatase 107 Total Protein 8.5 H Albumin 3.6 Blood Type Antibody Screen 06/16/19 06/16/19 06/17/19 20:10 21:17 03:53 WBC 11.2 H 11.5 H RBC 1.85 L 2.28 L Hgb 5.6 L 6.9 L Hct 16.9 L 20.3 L MCV 91 89 MCH 30.4 30.2 MCHC 33.4 33.9 RDW 17.4 H 16.9 H Plt Count 357 316 Seg Neutrophils % 65.1 63.6 Lymphocytes % 23.3 24.1 Monocytes % 9.0 10.2 Eosinophils % 1.5 1.5 Basophils % 1.1 0.6 Absolute Neutrophils 7.3 7.3 Absolute Lymphocytes 2.6 2.8 Absolute Monocytes 1.0 1.2 Absolute Eosinophils 0.2 0.2 Absolute Basophils 0.1 0.1 Retic Count (auto) Absolute Retic Sodium Potassium Chloride Carbon Dioxide Anion Gap BUN Creatinine Est GFR ( Amer) Est GFR (Non-Af Amer) Glucose Calcium Total Bilirubin AST Alkaline Phosphatase Total Protein Albumin Blood Type A POSITIVE Antibody Screen NEGATIVE 06/17/19 06/17/19 03:53 03:53 WBC RBC Hgb Hct MCV MCH MCHC RDW Plt Count Seg Neutrophils % Lymphocytes % Monocytes % Eosinophils % Basophils % Absolute Neutrophils Absolute Lymphocytes Absolute Monocytes Absolute Eosinophils Absolute Basophils Retic Count (auto) Absolute Retic Sodium 143.5 Potassium 4.2 Chloride 110 H Carbon Dioxide 27 Anion Gap 7 BUN 11 Creatinine 0.61 Est GFR ( Amer) > 60 Est GFR (Non-Af Amer) > 60 Glucose 122 H Calcium 8.6 Total Bilirubin 0.8 AST 41 Alkaline Phosphatase 77 Total Protein 7.2 Albumin 3.0 L Blood Type Antibody Screen Impressions: Femur X-Ray 06/16/19 11:07 IMPRESSION: Status post left hip total arthroplasty, partially imaged. No obvious fracture or component loosening. Osteopenia. Pelvis X-Ray 06/16/19 11:07 IMPRESSION: Status post bilateral hip total arthroplasty with extensive heterotopic ossification about the bilateral arthroplasty components. There is significant osteopenia, which limits evaluation for fracture. Within this limitation, no obvious fracture or dislocation of the included pelvis, sacrum, or hips. Lower Extremity CT 06/16/19 15:02 IMPRESSION: 1. Osteopenia, which generally limits sensitivity for fracture. Within this limitation, no displaced fracture of sacrum, pelvis, or hips. 2. Status post bilateral total hip arthroplasty with extensive heterotopic ossification. There is no obvious fracture and general configuration is not significantly changed compared to prior examination dated 08/22/2018. 3. There may be acetabular component loosening on the left evidenced by a substantial medial lucency, which is difficult to compare to prior radiographs due to rotation and alignment. The distal femoral components are not completely imaged. 4. Distended urinary bladder. Correlate for urinary retention. Lumbar Spine CT 06/16/19 15:02 IMPRESSION: 1. No acute fracture or dislocation of the lumbar spine. Redemonstrated compression deformity of L3 status post kyphoplasty. 2. Osteopenia. 3. Very distended urinary bladder. Correlate for urinary retention. Assessment and Plan - Diagnosis (1) Left hip pain Is this a current diagnosis for this admission?: Yes Plan: CT of the pelvis demonstrated left acetabular component lucency and possible loosening on his hip prosthesis. Patient is admitted to the medical floor. Pain is adequately controlled while at rest. He is provided as needed p.o. Tylenol, IV Toradol, oxycodone 5 to 10 mg, with IV morphine as needed for breakthrough pain. We will obtain orthopedic consultation on Wednesday.. (2) Intractable low back pain Is this a current diagnosis for this admission?: Yes Plan: Pain is adequately controlled while at rest. He is provided as needed p.o. Tylenol, IV Toradol, oxycodone 5 to 10 mg, with IV morphine as needed for breakthrough pain. We will obtain orthopedic consultation on Wednesday. (3) Sickle cell anemia Qualifiers: Sickle-cell associated disorders: without crisis Qualified Code(s): D57.1 - 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 Is this a current diagnosis for this admission?: Yes Plan: Patient was admitted with a hemoglobin of 6.1; baseline hemoglobin appears to be 6-7 Reticulocyte count 1.14. He is now status post 1 unit PRBC. Patient denies sickle cell crisis pain at this time. We will continue his home dose hydroxyurea, multivitamin, and folic acid. (4) Seizure disorder Is this a current diagnosis for this admission?: Yes Plan: We will continue Keppra. (5) DVT prophylaxis Is this a current diagnosis for this admission?: Yes Plan: Subcutaneous Lovenox. - Time Time Spent with patient: 15-24 minutes Medications reviewed and adjusted accordingly: Yes Anticipated discharge: Home Within: within 48 hours
[2019-06-17 21:02] LABS: ABSOLUTE BASOPHILS # (AUTO) 0.1 10^3/uL (0.0-0.2); ABSOLUTE EOSINOPHILS # (AUTO) 0.3 10^3/uL (0.0-0.6); ABSOLUTE MONOCYTES (AUTO) 0.8 10^3/uL (0.1-1.4); ABSOLUTE NEUT (AUTO) 5.4 10^3/uL (1.7-8.2); BASOPHILS % (AUTO) 0.9 % (0-2); EOSINOPHILS % (AUTO) 3.1 % (0-6); HEMATOCRIT 20.5 % (37.9-51.0); LYMPHOCYTES % (AUTO) 31.3 % (13-45); MEAN CORPUSCULAR HEMOGLOBIN 30.5 pg (27.0-33.4); MEAN CORPUSCULAR HGB CONC 34.2 g/dL (32.0-36.0); MEAN CORPUSCULAR VOLUME 89 fl (80-97); MONOCYTES % (AUTO) 8.6 % (3-13); PLATELET COUNT 321 10^3/uL (150-450); RED CELL DISTRIBUTION WIDTH 17.7 % (11.5-14.0); SEGMENTED NEUTROPHILS % (AUTO) 56.1 % (42-78); TOTAL CELLS COUNTED % (AUTO) 100 %; WHITE BLOOD COUNT 9.6 10^3/uL (4.0-10.5)
[2019-06-17] MEDS: MIRTAZAPINE 15 MG TABLET PO SCH (22:59)
[2019-06-18] MEDS: METOPROLOL SUCCINATE 25 MG TAB.SR.24H PO SCH ×3 (00:18→21:01)
[2019-06-18] MEDS: OXYCODONE-ACETAMINOPHEN 5-325 MG TABLET PO PRN ×3 (02:52→21:01)
[2019-06-18] MEDS: KETOROLAC TROMETHAMINE INJ/PF 30 MG/1 ML SDV IV PRN ×2 (09:39→17:28)
[2019-06-18] MEDS: TAMSULOSIN HCL 0.4 MG CAP.SR.24H PO SCH (09:45)
[2019-06-18] MEDS: FOLIC ACID 1 MG TABLET PO SCH (09:45)
[2019-06-18] MEDS: LEVETIRACETAM 500 MG TABLET PO SCH ×2 (09:45→21:01)
[2019-06-18] MEDS: ENOXAPARIN SODIUM INJ 40 MG/0.4 ML DISP.SYRIN SUBCUT SCH (09:45)
[2019-06-18] MEDS: HYDROXYUREA 500 MG CAPSULE PO SCH (09:45)
[2019-06-18] MEDS: MULTIVITAMIN TABLET PO SCH (09:45)
[2019-06-18] MEDS: MORPHINE SULFATE 10 MG/ML INJ IV PRN (13:05)
--- NOTE | 2019-06-18 18:10 | PDOC PROGRESS REPORT ---
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 Patient was seen on morning rounds. He is found resting in bed comfortably on room air. He reports that his pain is well controlled at present, but is not ambulatory due to severe pain. He denies fever, chills, chest pain, dyspnea, cough, abdominal pain, nausea vomiting diarrhea, or sickle cell crisis pain at this time. He has no questions or concerns. No concerns per nursing. Reason For Visit: INTRACTABLE LOW BACK AND HIP PAIN, INABILITY TO Physical Exam Vital Signs: Temp Pulse Resp BP Pulse Ox 98.1 F 82 14 100/60 100 06/18/19 10:57 06/18/19 10:57 06/18/19 10:57 06/18/19 10:57 06/18/19 10:57 Intake & Output 06/17/19 06/18/19 06/19/19 06:59 06:59 06:59 Intake Total 610 3734 250 Output Total 500 1200 Balance 110 2534 250 Weight 51.71 kg 51 kg General appearance: PRESENT: no acute distress, cooperative, thin, well- developed Head exam: PRESENT: atraumatic, normocephalic Eye exam: PRESENT: conjunctiva pink, EOMI, PERRLA. ABSENT: scleral icterus Ear exam: PRESENT: normal external ear exam Mouth exam: PRESENT: moist, tongue midline Neck exam: ABSENT: carotid bruit, JVD, lymphadenopathy, thyromegaly Respiratory exam: PRESENT: clear to auscultation ishan, symmetrical, unlabored. ABSENT: rales, rhonchi, wheezes Cardiovascular exam: PRESENT: RRR. ABSENT: diastolic murmur, rubs, systolic murmur Pulses: PRESENT: normal dorsalis pedis pul Vascular exam: PRESENT: normal capillary refill GI/Abdominal exam: PRESENT: normal bowel sounds, soft. ABSENT: distended, guarding, mass, organolmegaly, rebound, tenderness Rectal exam: PRESENT: deferred Extremities exam: PRESENT: tenderness - Bilateral hip pain, R>L. Low back pain. ABSENT: calf tenderness, clubbing, pedal edema Neurological exam: PRESENT: alert, awake, oriented to person, oriented to place, oriented to time, oriented to situation, CN II-XII grossly intact, other - forgetful. ABSENT: motor sensory deficit Psychiatric exam: PRESENT: appropriate affect, normal mood. ABSENT: homicidal ideation, suicidal ideation Skin exam: PRESENT: dry, intact, warm. ABSENT: cyanosis, rash Results Laboratory Results: 06/17/19 20:28 06/17/19 03:53 06/17/19 20:28 WBC 9.6 RBC 2.30 L Hgb 7.0 L Hct 20.5 L MCV 89 MCH 30.5 MCHC 34.2 RDW 17.7 H Plt Count 321 Seg Neutrophils % 56.1 Lymphocytes % 31.3 Monocytes % 8.6 Eosinophils % 3.1 Basophils % 0.9 Absolute Neutrophils 5.4 Absolute Lymphocytes 3.0 Absolute Monocytes 0.8 Absolute Eosinophils 0.3 Absolute Basophils 0.1 Impressions: Femur X-Ray 06/16/19 11:07 IMPRESSION: Status post left hip total arthroplasty, partially imaged. No obvious fracture or component loosening. Osteopenia. Pelvis X-Ray 06/16/19 11:07 IMPRESSION: Status post bilateral hip total arthroplasty with extensive heterotopic ossification about the bilateral arthroplasty components. There is significant osteopenia, which limits evaluation for fracture. Within this limitation, no obvious fracture or dislocation of the included pelvis, sacrum, or hips. Lower Extremity CT 06/16/19 15:02 IMPRESSION: 1. Osteopenia, which generally limits sensitivity for fracture. Within this limitation, no displaced fracture of sacrum, pelvis, or hips. 2. Status post bilateral total hip arthroplasty with extensive heterotopic ossification. There is no obvious fracture and general configuration is not significantly changed compared to prior examination dated 08/22/2018. 3. There may be acetabular component loosening on the left evidenced by a substantial medial lucency, which is difficult to compare to prior radiographs due to rotation and alignment. The distal femoral components are not completely imaged. 4. Distended urinary bladder. Correlate for urinary retention. Lumbar Spine CT 06/16/19 15:02 IMPRESSION: 1. No acute fracture or dislocation of the lumbar spine. Rede monstrated compression deformity of L3 status post kyphoplasty. 2. Osteopenia. 3. Very distended urinary bladder. Correlate for urinary retention. Assessment and Plan - Diagnosis (1) Left hip pain Is this a current diagnosis for this admission?: Yes Plan: CT of the pelvis demonstrated left acetabular component lucency and possible loosening on his hip prosthesis. Patient is admitted to the medical floor. Pain is adequately controlled while at rest. He is provided as needed p.o. Tylenol, IV Toradol, oxycodone 5 to 10 mg, with IV morphine as needed for breakthrough pain. We will obtain orthopedic consultation on Wednesday. (2) Intractable low back pain Is this a current diagnosis for this admission?: Yes Plan: Pain is adequately controlled while at rest. He is provided as needed p.o. Tylenol, IV Toradol, oxycodone 5 to 10 mg, with IV morphine as needed for breakthrough pain. We will obtain orthopedic consultation on Wednesday. (3) Sickle cell anemia Qualifiers: Sickle-cell associated disorders: without crisis Qualified Code(s): D57.1 - 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 Is this a current diagnosis for this admission?: Yes Plan: Stable; Hgb currently 7.0 Patient was admitted with a hemoglobin of 6.1; baseline hemoglobin appears to be 6-7 Reticulocyte count 1.14. He is now status post 1 unit PRBC. Patient denies sickle cell crisis pain at this time. We will continue his home dose hydroxyurea, multivitamin, and folic acid. (4) Seizure disorder Is this a current diagnosis for this admission?: Yes Plan: We will continue Keppra. Patient's family members indicated that his provider was currently weaning Keppra dose. Received MAR from [facility] and confirmed to the patient is currently receiving Keppra 500 mg twice daily. We will continue dose unchanged and defer further weaning to his PCP. (5) DVT prophylaxis Is this a current diagnosis for this admission?: Yes Plan: Subcutaneous Lovenox. - Time Time Spent with patient: 15-24 minutes Medications reviewed and adjusted accordingly: Yes Anticipated discharge: Home
[2019-06-18 20:21] LABS: ABSOLUTE BASOPHILS # (AUTO) 0.1 10^3/uL (0.0-0.2); ABSOLUTE EOSINOPHILS # (AUTO) 0.4 10^3/uL (0.0-0.6); ABSOLUTE LYMPHOCYTES (AUTO) 3.1 10^3/uL (0.5-4.7); ABSOLUTE MONOCYTES (AUTO) 0.7 10^3/uL (0.1-1.4); ABSOLUTE NEUT (AUTO) 4.4 10^3/uL (1.7-8.2); BASOPHILS % (AUTO) 0.9 % (0-2); EOSINOPHILS % (AUTO) 4.1 % (0-6); HEMATOCRIT 20.2 % (37.9-51.0); LYMPHOCYTES % (AUTO) 35.7 % (13-45); MEAN CORPUSCULAR HEMOGLOBIN 30.6 pg (27.0-33.4); MEAN CORPUSCULAR HGB CONC 34.2 g/dL (32.0-36.0); MEAN CORPUSCULAR VOLUME 90 fl (80-97); MONOCYTES % (AUTO) 8.3 % (3-13); PLATELET COUNT 366 10^3/uL (150-450); RED BLOOD COUNT 2.26 10^6/uL (4.35-5.55); TOTAL CELLS COUNTED % (AUTO) 100 %; WHITE BLOOD COUNT 8.7 10^3/uL (4.0-10.5)
[2019-06-18 20:23] LABS: HEMOGLOBIN 6.9 g/dL (13.5-17.0)
[2019-06-18] MEDS: MIRTAZAPINE 15 MG TABLET PO SCH (21:01)
[2019-06-19] MEDS: MORPHINE SULFATE 10 MG/ML INJ IV PRN (01:25)
[2019-06-19] MEDS: KETOROLAC TROMETHAMINE INJ/PF 30 MG/1 ML SDV IV PRN (01:25)
[2019-06-19] MEDS: FOLIC ACID 1 MG TABLET PO SCH (09:23)
[2019-06-19] MEDS: MULTIVITAMIN TABLET PO SCH (09:23)
[2019-06-19] MEDS: OXYCODONE-ACETAMINOPHEN 5-325 MG TABLET PO PRN ×3 (09:23→21:06)
[2019-06-19] MEDS: ENOXAPARIN SODIUM INJ 40 MG/0.4 ML DISP.SYRIN SUBCUT SCH (09:23)
[2019-06-19] MEDS: TAMSULOSIN HCL 0.4 MG CAP.SR.24H PO SCH (09:23)
[2019-06-19] MEDS: LEVETIRACETAM 500 MG TABLET PO SCH ×2 (09:23→21:05)
[2019-06-19] MEDS: HYDROXYUREA 500 MG CAPSULE PO SCH (09:23)
[2019-06-19] MEDS: METOPROLOL SUCCINATE 25 MG TAB.SR.24H PO SCH ×2 (09:24→21:06)
--- NOTE | 2019-06-19 16:26 | PDOC PROGRESS REPORT ---
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 Patient was seen on morning rounds. He is found resting in bed comfortably on room air. He is sleeping when I enter the room, does wake easily when I say his name. He tells me that his pain is well controlled at this time. He denies fever, chills, chest pain, dyspnea, cough, abdominal pain, nausea vomiting diarrhea, or sickle cell crisis pain at this time. He has no questions or concerns. No concerns per nursing. Reason For Visit: INTRACTABLE LOW BACK AND HIP PAIN, INABILITY TO Physical Exam Vital Signs: Temp Pulse Resp BP Pulse Ox 98.1 F 66 16 110/60 100 06/19/19 07:23 06/19/19 07:23 06/19/19 07:23 06/19/19 07:23 06/19/19 07:23 Intake & Output 06/18/19 06/19/19 06/20/19 06:59 06:59 06:59 Intake Total 3734 490 480 Output Total 1200 700 325 Balance 2534 -210 155 Weight 51 kg 4 kg General appearance: PRESENT: no acute distress, cooperative, thin, well- developed Head exam: PRESENT: atraumatic, normocephalic Eye exam: PRESENT: conjunctiva pink, EOMI, PERRLA. ABSENT: scleral icterus Ear exam: PRESENT: normal external ear exam Mouth exam: PRESENT: moist, tongue midline Neck exam: ABSENT: carotid bruit, JVD, lymphadenopathy, thyromegaly Respiratory exam: PRESENT: clear to auscultation ishan, symmetrical, unlabored. ABSENT: rales, rhonchi, wheezes Cardiovascular exam: PRESENT: RRR, +S1, +S2. ABSENT: diastolic murmur, rubs, systolic murmur Pulses: PRESENT: normal dorsalis pedis pul Vascular exam: PRESENT: normal capillary refill GI/Abdominal exam: PRESENT: normal bowel sounds, soft. ABSENT: distended, guarding, mass, organolmegaly, rebound, tenderness Rectal exam: PRESENT: deferred Extremities exam: PRESENT: tenderness - Hip pain; R>L. ABSENT: calf tenderness, clubbing, pedal edema Neurological exam: PRESENT: alert, awake, oriented to person, oriented to place, oriented to time, oriented to situation, CN II-XII grossly intact. ABSENT: motor sensory deficit Psychiatric exam: PRESENT: appropriate affect, normal mood. ABSENT: homicidal ideation, suicidal ideation Skin exam: PRESENT: dry, intact, warm. ABSENT: cyanosis, rash Results Laboratory Results: 06/18/19 20:15 06/17/19 03:53 06/18/19 20:15 WBC 8.7 RBC 2.26 L Hgb 6.9 L Hct 20.2 L MCV 90 MCH 30.6 MCHC 34.2 RDW 17.0 H Plt Count 366 Seg Neutrophils % 51.0 Lymphocytes % 35.7 Monocytes % 8.3 Eosinophils % 4.1 Basophils % 0.9 Absolute Neutrophils 4.4 Absolute Lymphocytes 3.1 Absolute Monocytes 0.7 Absolute Eosinophils 0.4 Absolute Basophils 0.1 Impressions: Femur X-Ray 06/16/19 11:07 IMPRESSION: Status post left hip total arthroplasty, partially imaged. No obvious fracture or component loosening. Osteopenia. Pelvis X-Ray 06/16/19 11:07 IMPRESSION: Status post bilateral hip total arthroplasty with extensive heterotopic ossification about the bilateral arthroplasty components. There is significant osteopenia, which limits evaluation for fracture. Within this limitation, no obvious fracture or dislocation of the included pelvis, sacrum, or hips. Lower Extremity CT 06/16/19 15:02 IMPRESSION: 1. Osteopenia, which generally limits sensitivity for fracture. Within this limitation, no displaced fracture of sacrum, pelvis, or hips. 2. Status post bilateral total hip arthroplasty with extensive heterotopic ossification. There is no obvious fracture and general configuration is not significantly changed compared to prior examination dated 08/22/2018. 3. There may be acetabular component loosening on the left evidenced by a substantial medial lucency, which is difficult to compare to prior radiographs due to rotation and alignment. The distal femoral components are not completely imaged. 4. Distended urinary bladder. Correlate for urinary retention. Lumbar Spine CT 06/16/19 15:02 IMPRESSION: 1. No acute fracture or dislocation of the lumbar spine. Redemonstrated compression deformity of L3 status post kyphoplasty. 2. Osteopenia. 3. Very distended urinary bladder. Correlate for urinary retention. Assessment and Plan - Diagnosis (1) Left hip pain Is this a current diagnosis for this admission?: Yes Plan: CT of the pelvis demonstrated left acetabular component lucency and possible loosening on his hip prosthesis. Patient is admitted to the medical floor. Pain is adequately controlled while at rest. He is provided as needed p.o. Tylenol, IV Toradol, oxycodone 5 to 10 mg, with IV morphine as needed for breakthrough pain. Orthopedic consultation today; awaiting Dr. Marcos's evaluation and recommendations. (2) Intractable low back pain Is this a current diagnosis for this admission?: Yes Plan: Pain is adequately controlled while at rest. He is provided as needed p.o. Tylenol, IV Toradol, oxycodone 5 to 10 mg, with IV morphine as needed for breakthrough pain. Orthopedic consultation today (3) Sickle cell anemia Qualifiers: Sickle-cell associated disorders: without crisis Qualified Code(s): D57.1 - 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 Is this a current diagnosis for this admission?: Yes Plan: Stable; Hgb currently 6.9 Patient was admitted with a hemoglobin of 6.1; baseline hemoglobin appears to be 6-7 Reticulocyte count 1.14. He is now status post 1 unit PRBC. Patient denies sickle cell crisis pain at this time. We will continue his home dose hydroxyurea, multivitamin, and folic acid. (4) Seizure disorder Is this a current diagnosis for this admission?: Yes Plan: We will continue Keppra. Patient's family members indicated that his provider was currently weaning Keppra dose. Received MAR from [place] and confirmed to the patient is currently receiving Keppra 500 mg twice daily. We will continue dose unchanged and defer further weaning to his PCP. (5) DVT prophylaxis Is this a current diagnosis for this admission?: Yes Plan: Subcutaneous Lovenox. - Time Time Spent with patient: Less than 15 minutes Medications reviewed and adjusted accordingly: Yes Anticipated discharge: Home Within: Other - Pending Ortho's recommendations
[2019-06-19] MEDS: MIRTAZAPINE 15 MG TABLET PO SCH (21:05)
[2019-06-20 04:47] LABS: HEMATOCRIT 20.9 % (37.9-51.0); MEAN CORPUSCULAR HEMOGLOBIN 30.7 pg (27.0-33.4); MEAN CORPUSCULAR VOLUME 90 fl (80-97); PLATELET COUNT 359 10^3/uL (150-450); RED BLOOD COUNT 2.32 10^6/uL (4.35-5.55); RED CELL DISTRIBUTION WIDTH 17.1 % (11.5-14.0); WHITE BLOOD COUNT 8.9 10^3/uL (4.0-10.5)
[2019-06-20 05:01] LABS: ANION GAP 5 (5-19); BLOOD UREA NITROGEN 14 mg/dL (7-20); CALCIUM 8.9 mg/dL (8.4-10.2); CARBON DIOXIDE 29 mmol/L (22-30); CHLORIDE 106 mmol/L (98-107); GLUCOSE 92 mg/dL (75-110); HEMOGLOBIN 7.1 g/dL (13.5-17.0); POTASSIUM 4.5 mmol/L (3.6-5.0)
[2019-06-20] MEDS: FOLIC ACID 1 MG TABLET PO SCH (10:01)
[2019-06-20] MEDS: OXYCODONE-ACETAMINOPHEN 5-325 MG TABLET PO PRN ×3 (10:01→18:16)
[2019-06-20] MEDS: ENOXAPARIN SODIUM INJ 40 MG/0.4 ML DISP.SYRIN SUBCUT SCH (10:02)
[2019-06-20] MEDS: TAMSULOSIN HCL 0.4 MG CAP.SR.24H PO SCH (10:02)
[2019-06-20] MEDS: LEVETIRACETAM 500 MG TABLET PO SCH ×2 (10:02→21:50)
[2019-06-20] MEDS: MULTIVITAMIN TABLET PO SCH (10:02)
[2019-06-20] MEDS: METOPROLOL SUCCINATE 25 MG TAB.SR.24H PO SCH ×2 (10:05→21:50)
--- NOTE | 2019-06-20 11:36 | RADIOLOGY REPORT (SQ) ---
EXAM DESCRIPTION: NM 3 PHASE BONE SCAN COMPLETED DATE/TIME: 06/20/2019 11:23 am REASON FOR STUDY: PAIN COMPARISON: CT lumbar spine dated 06/16/2019, CT left lower extremity dated 06/16/2019, conventional r adiographs of the left femur dated 06/16/2019 RADIONUCLIDE AND DOSE: 21.4 millicuries Tc99m MDP. The route of agent administration: Intravenous. ADDITIONAL DRUGS AND DOSES: None. TECHNIQUE: Following injection of the radiopharmaceutical, serial blood flow images acquired. Equil ibrium blood pool images then acquired. Routine delayed images at 3 hour acquired of the areas of cl inical concern with additional focused images as needed. AREA OF INTEREST: Back and hips LIMITATIONS: None. FINDINGS: VASCULAR FLOW IMAGES: No asymmetry or focal areas of hyperemia. BLOOD POOL IMAGES: No asymmetry or focal areas of soft-tissue hyper-perfusion. BONES: Persistent increased uptake in the right mid femur. Uptake surrounding both hip prostheses. Uptake in both knees consistent with degenerative disease. KIDNEYS: Symmetric excretion without obstruction. OTHER: No other significant finding. IMPRESSION: Persistent abnormal uptake in the right mid femur. This is stable dating back to . Correlation with plain films is recommended. No other unexpected findings. No scintigraphic ev idence of prostatic loosening. COMMENT: Quality measure 147: Current bone scan is compared with any available plain radiographs, p rior bone scans, and CT/MRI. TECHNICAL DOCUMENTATION: JOB ID: [id number] [employer]- All Rights Reserved Reading location - IP/workstation name: [email or web address]
[2019-06-20] MEDS: HYDROXYUREA 500 MG CAPSULE PO SCH (11:57)
--- NOTE | 2019-06-20 16:13 | PDOC PROGRESS REPORT ---
Subjective Progress Note for:: 06/20/19 Subjective:: Patient watching television. Did not make eye contact with this provider. Short answers to questions. Reason For Visit: INTRACTABLE LOW BACK AND HIP PAIN, INABILITY TO Physical Exam Vital Signs: Temp Pulse Resp BP Pulse Ox 98.3 F 91 12 113/64 100 06/20/19 07:23 06/20/19 10:04 06/20/19 07:23 06/20/19 10:04 06/20/19 07:23 Intake & Output 06/19/19 06/20/19 06/21/19 06:59 06:59 06:59 Intake Total 490 960 500 Output Total 700 325 900 Balance -210 635 -400 Weight 4 kg General appearance: PRESENT: no acute distress, cooperative, thin, well- developed Head exam: PRESENT: atraumatic, normocephalic Mouth exam: PRESENT: dry mucosa, tongue midline Neck exam: PRESENT: other - Well-healed tracheostomy scar Respiratory exam: PRESENT: clear to auscultation ishan, symmetrical, unlabored. ABSENT: accessory muscle use, rales, rhonchi, tachypnea, wheezes Cardiovascular exam: PRESENT: RRR, +S1, +S2, systolic murmur - 3/6 GI/Abdominal exam: PRESENT: normal bowel sounds, soft. ABSENT: distended, tenderness Rectal exam: PRESENT: deferred Neurological exam: PRESENT: alert, awake, oriented to person, oriented to place, oriented to situation, CN II-XII grossly intact Psychiatric exam: PRESENT: flat affect. ABSENT: agitated, anxious Focused psych exam: ABSENT: delusional, restlessness Skin exam: PRESENT: dry, normal color, warm. ABSENT: rash Results Laboratory Results: 06/20/19 04:15 06/20/19 04:15 06/20/19 06/20/19 04:15 04:15 WBC 8.9 RBC 2.32 L Hgb 7.1 L Hct 20.9 L MCV 90 MCH 30.7 MCHC 34.0 RDW 17.1 H Plt Count 359 Sodium 140.4 Potassium 4.5 Chloride 106 Carbon Dioxide 29 Anion Gap 5 BUN 14 Creatinine 0.60 Est GFR ( Amer) > 60 Est GFR (Non-Af Amer) > 60 Glucose 92 Calcium 8.9 Impressions: Femur X-Ray 06/16/19 11:07 IMPRESSION: Status post left hip total arthroplasty, partially imaged. No obvious fracture or component loosening. Osteopenia. Pelvis X-Ray 06/16/19 11:07 IMPRESSION: Status post bilateral hip total arthroplasty with extensive heterotopic ossification about the bilateral arthroplasty components. There is significant osteopenia, which limits evaluation for fracture. Within this limi tation, no obvious fracture or dislocation of the included pelvis, sacrum, or hips. Lower Extremity CT 06/16/19 15:02 IMPRESSION: 1. Osteopenia, which generally limits sensitivity for fracture. Within this limitation, no displaced fracture of sacrum, pelvis, or hips. 2. Status post bilateral total hip arthroplasty with extensive heterotopic ossification. There is no obvious fracture and general configuration is not significantly changed compared to prior examination dated 08/22/2018. 3. There may be acetabular component loosening on the left evidenced by a sub stantial medial lucency, which is difficult to compare to prior radiographs due to rotation and alignment. The distal femoral components are not completely imaged. 4. Distended urinary bladder. Correlate for urinary retention. Lumbar Spine CT 06/16/19 15:02 IMPRESSION: 1. No acute fracture or dislocation of the lumbar spine. Redemonstrated compression deformity of L3 status post kyphoplasty. 2. Osteopenia. 3. Very distended urinary bladder. Correlate for urinary retention. Bone Scan Nuclear Medicine 06/19/19 00:00 IMPRESSION: Persistent abnormal uptake in the right mid femur. This is stable dating back to December. Correlation with plain films is recommended. No other unexpected findings. No scintigraphic evidence of prostatic loosening. Assessment and Plan - Diagnosis (1) Left hip pain Is this a current diagnosis for this admission?: Yes Plan: 06/20/2019-multiple imaging studies do not reveal any new pathology in the hip. Dr. Marcos has been consulted for orthopedic surgery opinion. If the prosthesis is not loose there is likely no surgical intervention at this time. Continue current pain management. (2) Intractable low back pain Is this a current diagnosis for this admission?: Yes Plan: 06/20/2019-currently with reasonable pain control. Continue current medication regimen. (3) Sickle cell anemia Qualifiers: Sickle-cell associated disorders: without crisis Qualified Code(s): D57.1 - 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 Is this a current diagnosis for this admission?: Yes Plan: 06/20/2019-he did receive 1 unit of packed red blood cells. His hemoglobin is now 7.1. I believe he is chronically at this level. We will continue to monitor. (4) Seizure disorder Is this a current diagnosis for this admission?: Yes Plan: 06/20/2019-we will continue Keppra. According to the medication administration record from [facility] the patient is currently on a weaning protocol for his Keppra. I will defer to his primary care provider to make any changes. We have kept his dose unchanged at this time. (5) DVT prophylaxis Is this a current diagnosis for this admission?: Yes Plan: 06/20/2019-continue Lovenox - Time Time Spent with patient: 15-24 minutes Medications reviewed and adjusted accordingly: Yes Anticipated discharge: Other - Return to long-term care facility Within: within 48 hours
[2019-06-20] MEDS: MIRTAZAPINE 15 MG TABLET PO SCH (21:50)
[2019-06-21] MEDS: ENOXAPARIN SODIUM INJ 30 MG/0.3 ML DISP.SYRIN SUBCUT SCH (08:21)
[2019-06-21] MEDS ORDERED: BISACODYL 5 MG TABEC PO PRN (09:27)
[2019-06-21] MEDS ORDERED: BISACODYL 10 MG SUPP.RECT PR PRN (09:27)
[2019-06-21] MEDS ORDERED: BISACODYL 5 MG TABEC PO ONE (09:27)
[2019-06-21] MEDS ORDERED: BISACODYL 10 MG SUPP.RECT PR ONE (09:27)
--- NOTE | 2019-06-21 09:27 | PDOC PROGRESS REPORT ---
Subjective Progress Note for:: 06/21/19 Subjective:: Patient resting comfortably. Discussed case with Dr. Marcos. Reason For Visit: INTRACTABLE LOW BACK AND HIP PAIN, INABILITY TO Physical Exam Vital Signs: Temp Pulse Resp BP Pulse Ox 97.8 F 81 14 92/52 L 98 06/21/19 00:00 06/21/19 00:00 06/21/19 00:00 06/21/19 00:00 06/21/19 00:00 Intake & Output 06/20/19 06/21/19 06/22/19 06:59 06:59 06:59 Intake Total 960 1245 Output Total 325 900 Balance 635 345 Weight 52.3 kg General appearance: PRESENT: no acute distress, cooperative, thin, well- developed Head exam: PRESENT: atraumatic, normocephalic Ear exam: PRESENT: bleeding, drainage, normal external ear exam Mouth exam: PRESENT: moist, tongue midline Teeth exam: PRESENT: other Respiratory exam: PRESENT: clear to auscultation ishan, symmetrical, unlabored. ABSENT: rales, rhonchi, tachypnea, wheezes Cardiovascular exam: PRESENT: RRR, +S1, +S2 GI/Abdominal exam: PRESENT: diminished bowel sounds, soft. ABSENT: distended, tenderness Rectal exam: PRESENT: deferred Extremities exam: ABSENT: joint swelling, pedal edema, tenderness Neurological exam: PRESENT: alert, awake, oriented to person, oriented to place, oriented to situation Psychiatric exam: PRESENT: flat affect. ABSENT: agitated, anxious Focused psych exam: ABSENT: delusional, restlessness Results Laboratory Results: 06/20/19 04:15 06/20/19 04:15 Impressions: Femur X-Ray 06/16/19 11:07 IMPRESSION: Status post left hip total arthroplasty, partially imaged. No obvious fracture or component loosening. Osteopenia. Pelvis X-Ray 06/16/19 11:07 IMPRESSION: Status post bilateral hip total arthroplasty with extensive heterotopic ossification about the bilateral arthroplasty components. There is significant osteopenia, which limits evaluation for fracture. Within this limitation, no obvious fracture or dislocation of the included pelvis, sacrum, or hips. Lower Extremity CT 06/16/19 15:02 IMPRESSION: 1. Osteopenia, which generally limits sensitivity for fracture. Within this limitation, no displaced fracture of sacrum, pelvis, or hips. 2. Status post bilateral total hip arthroplasty with extensive heterotopic ossification. There is no obvious fracture and general configuration is not significantly changed compared to prior examination dated 08/22/2018. 3. There may be acetabular component loosening on the left evidenced by a substantial medial lucency, which is difficult to compare to prior radiographs due to rotation and alignment. The distal femoral components are not completely imaged. 4. Distended urinary bladder. Correlate for urinary retention. Lumbar Spine CT 06/16/19 15:02 IMPRESSION: 1. No acute fracture or dislocation of the lumbar spine. Rede monstrated compression deformity of L3 status post kyphoplasty. 2. Osteopenia. 3. Very distended urinary bladder. Correlate for urinary retention. Bone Scan Nuclear Medicine 06/19/19 00:00 IMPRESSION: Persistent abnormal uptake in the right mid femur. This is stable dating back to December. Correlation with plain films is recommended. No other unexpected findings. No scintigraphic evidence of prostatic loosening. Assessment and Plan - Diagnosis (1) Left hip pain Is this a current diagnosis for this admission?: Yes Plan: 06/20/2019-multiple imaging studies do not reveal any new pathology in the hip. Dr. Marcos has been consulted for orthopedic surgery opinion. If the prosthesis is not loose there is likely no surgical intervention at this time. Continue current pain management. 06/21/2019-Dr. Marcos did see the patient. He does not see any obvious etiology for the increase in pain. He did ask Dr. Diaz to see the patient as well. Dr. Diaz has performed kyphoplasty on the patient earlier this year. If there is no surgical indication for treatment I will discharge the patient tomorrow. He will go back to [place]. We can continue pain management as an outpatient. (2) Intractable low back pain Is this a current diagnosis for this admission?: Yes Plan: 06/20/2019-currently with reasonable pain control. Continue current medication regimen. 06/21/2019-continue current regimen. (3) Sickle cell anemia Qualifiers: Sickle-cell associated disorders: without crisis Qualified Code(s): D57.1 - 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 Is this a current diagnosis for this admission?: Yes Plan: 06/20/2019-he did receive 1 unit of packed red blood cells. His hemoglobin is now 7.1. I believe he is chronically at this level. We will continue to monitor. 06/21/2019-patient is stable. Consider rechecking hemoglobin in several days. (4) Seizure disorder Is this a current diagnosis for this admission?: Yes Plan: 06/20/2019-we will continue Keppra. According to the medication administration record from [facility] the patient is currently on a weaning p rotocol for his Keppra. I will defer to his primary care provider to make any changes. We have kept his dose unchanged at this time. 06/21/2019-continue current dose of Keppra. (5) DVT prophylaxis Is this a current diagnosis for this admission?: Yes Plan: 06/20/2019-continue Lovenox 06/21/2019-no change (6) Constipation Qualifiers: Constipation type: unspecified constipation type Qualified Code(s): K59.00 - Constipation, unspecified Is this a current diagnosis for this admission?: Yes Plan: 06/21/2019-bisacodyl was ordered. The patient did have a bowel movement today. We will continue MiraLAX. - Time Time Spent with patient: 15-24 minutes Medications reviewed and adjusted accordingly: Yes Anticipated discharge: Other - Back to [place]
[2019-06-21] MEDS: LEVETIRACETAM 500 MG TABLET PO SCH ×2 (09:49→21:23)
[2019-06-21] MEDS: MULTIVITAMIN TABLET PO SCH (09:50)
[2019-06-21] MEDS: HYDROXYUREA 500 MG CAPSULE PO SCH (09:50)
[2019-06-21] MEDS: TAMSULOSIN HCL 0.4 MG CAP.SR.24H PO SCH (09:51)
[2019-06-21] MEDS: FOLIC ACID 1 MG TABLET PO SCH (09:51)
[2019-06-21] MEDS: POLYETHYLENE GLYCOL 3350 POWDER 17 GM/1 PACKET PO SCH (09:52)
[2019-06-21] MEDS: METOPROLOL SUCCINATE 25 MG TAB.SR.24H PO SCH ×2 (09:59→21:23)
[2019-06-21] MEDS: OXYCODONE-ACETAMINOPHEN 5-325 MG TABLET PO PRN ×3 (10:03→17:51)
[2019-06-21] MEDS: KETOROLAC TROMETHAMINE INJ/PF 30 MG/1 ML SDV IV PRN (10:04)
[2019-06-21] MEDS: OXYCODONE HCL IR 5 MG TABLET PO SCH (21:24)
[2019-06-21] MEDS: MIRTAZAPINE 15 MG TABLET PO SCH (21:24)
[2019-06-22] MEDS: OXYCODONE HCL IR 5 MG TABLET PO SCH ×6 (02:36→21:02)
--- NOTE | 2019-06-22 06:48 | PDOC CONSULTATION ---
Consultation Consult Date: 06/22/19 Provider Consulted: YON FRASER Consult reason:: Left lower extremity pain History of Present Illness Admission Date/PCP: 06/16/19 19:45 TITO SOFIA MD History of Present Illness: EMIL BARNES is a 29 year old male The patient is a 29-year-old black male well-known to me from previous surgical encounters. The patient was ambulating with a walker up until approximately 2 weeks ago and since then has had a dramatic decrease in his functional level. A t this point the patient is unable to weight-bear on the left lower extremity and has severe pain with any motion either active or passive of the left lower extremity. The patient's uncle works with him on a daily basis in terms of range of motion strengthening and ambulation. He is a one that relates the interval history. Karson is not able to provide a coherent history and is likely to tell you what he thinks you want to hear Past Medical History Cardiac Medical History: Reports: Heart Murmur Denies: Atrial Fibrillation, Congestive Heart Failure, Coronary Artery Disease, Myocardial Infarction, Hypertension - ON METOPROLOL FOR HEART RATE, Peripheral Vascular Disease, Pulmonary Embolism Pulmonary Medical History: Denies: Asthma, Bronchitis, Chronic Obstructive Pulmonary Disease (COPD), Pneumonia, Tuberculosis Neurological Medical History: Reports: Seizures - ON MEDS Endocrine Medical History: Denies: Hyperthyroidism, Hypothyroidism Malignancy Medical History: Denies: Leukemia, Lung Cancer GI Medical History: Reports: Gastroesophageal Reflux Disease Musculoskeltal Medical History: Reports: Arthritis Denies: Fibromyalgia Psychiatric Medical History: Reports: Depression Denies: Bipolar Disorder, Dementia Hematology: Reports: Anemia - SICKLE-CELL, Sickle Cell Disease, Bleeding Tendencies Denies: Hemophilia Infectious Medical History: Denies: HIV Past Surgical History Past Surgical History: Reports: Cholecystectomy, Orthopedic Surgery - Patient underwent open reduction internal fixation of bilateral proximal fe, Other - Patient tracheostomy and PEG tube placement [facility] 3 years Denies: Appendectomy, Coronary Artery Bypass Graft, Gastric Bypass Surgery, Herniorrhaphy, Pacemaker, Tonsillectomy Social History Information Source: Patient, Legal Guardian, Dr. Mesa, [facility] Records Lives with: [facility] Smoking Status: Never Smoker Frequency of Alcohol Use: None Hx Recreational Drug Use: No Drugs: None Hx Prescription Drug Abuse: No - Advance Directive Resuscitation Status: Full Code Family History Family History: None, Reviewed & Not Pertinent, Hypertension, Other Parental Family History Reviewed: No Children Family History Reviewed: No Sibling(s) Family History Reviewed.: No Medication/Allergy Home Medications: Hydroxyurea [Hydrea 500 mg Capsule] 500 mg PO DAILY 08/21/18 Levetiracetam [Keppra 500 mg Tablet] 500 mg PO Q12 08/21/18 Folic Acid 1 mg PO DAILY #90 tablet 08/27/18 Metoprolol Succinate [Toprol Xl 25 mg Tab.sr] 12.5 mg PO Q12 tab.sr.24h 08/27/18 Oxycodone HCl/Acetaminophen [Percocet 5-325 mg Tablet] 1 tab PO Q6HP PRN #120 tablet 08/27/18 Epoetin Denny [Procrit Inj 40,000 Unit/1 Ml Vial (Nrd-Subq)] 40,000 unit SUBCUT ASDIR PRN 06/16/19 Mirtazapine [Remeron 15 mg Tablet] 15 mg PO QHS 06/16/19 Multivitamin/Iron/Folic Acid [Centrum Adults Tablet] 1 each PO DAILY 06/16/19 Tamsulosin HCl [Flomax 0.4 mg Cap.sr] 0.4 mg PO DAILY 06/16/19 Allergies/Adverse Reactions: No Known Drug Allergies Allergy (Unknown, Verified 06/16/19 10:37) Review of Systems ROS unobtainable: Due to mental status Physical Exam Vital Signs: Temp Pulse Resp BP Pulse Ox 36.7 C 65 16 103/48 L 100 06/22/19 00:22 06/22/19 00:22 06/22/19 00:22 06/22/19 00:22 06/22/19 00:22 Intake & Output 06/20/19 06/21/19 06/22/19 06:59 06:59 06:59 Intake Total 960 1245 1426 Output Total 325 900 Balance 561 212 1251 Weight 52.3 kg Physical Exam: The patient is a thin young black male in a position in the hospital bed. His hands are holding the distal third of his left thigh. The patient is only able to flex and extend the ankle when I asked him to move his lower extremity. He has tenderness to palpation over the junction middle and distal third of the thigh but no induration erythema or fluctuance. There is no mechanical instability in the femur that I can discern. Passive range of motion of the lower extremity causes him significant discomfort at the junction middle distal thirds of the femur. Distally motor and vascular examinations are intact. General appearance: PRESENT: mild distress, thin Head exam: PRESENT: normocephalic Respiratory exam: PRESENT: unlabored Cardiovascular exam: PRESENT: RRR Pulses: PRESENT: +1 pedal pulses bilateral Vascular exam: PRESENT: normal capillary refill GI/Abdominal exam: PRESENT: soft Rectal exam: PRESENT: deferred Extremities exam: PRESENT: other - As above Neurological exam: PRESENT: alert, awake, abnormal gait Skin exam: PRESENT: dry, intact, warm. ABSENT: cyanosis, rash Results Laboratory Results: 06/20/19 04:15 06/20/19 04:15 Impressions: Femur X-Ray 06/16/19 11:07 IMPRESSION: Status post left hip total arthroplasty, partially imaged. No obvious fracture or component loosening. Osteopenia. Pelvis X-Ray 06/16/19 11:07 IMPRESSION: Status post bilateral hip total arthroplasty with extensive heterotopic ossification about the bilateral arthroplasty components. There is significant osteopenia, which limits evaluation for fracture. Within this limitation, no obvious fracture or dislocation of the included pelvis, sacrum, or hips. Lower Extremity CT 06/16/19 15:02 IMPRESSION: 1. Osteopenia, which generally limits sensitivity for fracture. Within this limitation, no displaced fracture of sacrum, pelvis, or hips. 2. Status post bilateral total hip arthroplasty with extensive heterotopic ossification. There is no obvious fracture and general configuration is not significantly changed compared to prior examination dated 08/22/2018. 3. There may be acetabular component loosening on the left evidenced by a substantial medial lucency, which is difficult to compare to prior radiographs due to rotation and alignment. The distal femoral components are not completely imaged. 4. Distended urinary bladder. Correlate for urinary retention. Lumbar Spine CT 06/16/19 15:02 IMPRESSION: 1. No acute fracture or dislocation of the lumbar spine. Redemons trated compression deformity of L3 status post kyphoplasty. 2. Osteopenia. 3. Very distended urinary bladder. Correlate for urinary retention. Bone Scan Nuclear Medicine 06/19/19 00:00 IMPRESSION: Persistent abnormal uptake in the right mid femur. This is stable dating back to December. Correlation with plain films is recommended. No other unexpected findings. No scintigraphic evidence of prostatic loosening. Status: Imported from PACS Assessment & Plan - Diagnosis (1) Pain of left lower extremity Is this a current diagnosis for this admission?: Yes Plan: 29-year-old active male with new onset left lower extremity pain that leaves him bedbound and nonambulatory. The patient's got undergone a fairly extensive work-up of his left lower extremity from an imaging standpoint. X-rays and CT scan have been obtained and demonstrate no appreciable difference to previous imaging studies. Likewise a bone scan has have been obtained which is no different than it was in December. Physical examination this suggests a left femur problem but there is no associated imaging abnormalities. I have asked Dr. Sameer Barnes to evaluate the patient for a second opinion and potentially to evaluate for a neurogenic cause to the patient's discomfort but his positioning and physical examination are not indicative of such an etiology. - Time Time Spent: 50 to 70 Minutes Anticipated discharge: SNF Within: Other
[2019-06-22] MEDS: METOPROLOL SUCCINATE 25 MG TAB.SR.24H PO SCH ×2 (09:38→21:02)
[2019-06-22] MEDS: TAMSULOSIN HCL 0.4 MG CAP.SR.24H PO SCH (09:39)
[2019-06-22] MEDS: FOLIC ACID 1 MG TABLET PO SCH (09:39)
[2019-06-22] MEDS: ENOXAPARIN SODIUM INJ 30 MG/0.3 ML DISP.SYRIN SUBCUT SCH (09:39)
[2019-06-22] MEDS: LEVETIRACETAM 500 MG TABLET PO SCH ×2 (09:39→21:02)
[2019-06-22] MEDS: MULTIVITAMIN TABLET PO SCH (09:39)
[2019-06-22] MEDS: POLYETHYLENE GLYCOL 3350 POWDER 17 GM/1 PACKET PO SCH (09:40)
[2019-06-22] MEDS: HYDROXYUREA 500 MG CAPSULE PO SCH (09:40)
--- NOTE | 2019-06-22 14:04 | PDOC PROGRESS REPORT ---
Subjective Progress Note for:: 06/22/19 Subjective:: Patient resting comfortably. He reports that Dr. Diaz did stop by to see him. Reason For Visit: INTRACTABLE LOW BACK AND HIP PAIN, INABILITY TO Physical Exam Vital Signs: Temp Pulse Resp BP Pulse Ox 98.1 F 65 16 103/48 L 100 06/22/19 00:22 06/22/19 00:22 06/22/19 00:22 06/22/19 00:22 06/22/19 00:22 Intake & Output 06/21/19 06/22/19 06/23/19 06:59 06:59 06:59 Intake Total 1245 1426 Output Total 900 Balance 345 1426 Weight 52.3 kg 51.8 kg General appearance: PRESENT: no acute distress, thin, well-developed Head exam: PRESENT: atraumatic, normocephalic Eye exam: PRESENT: conjunctiva pale, EOMI. ABSENT: scleral icterus Ear exam: PRESENT: normal external ear exam. ABSENT: bleeding, drainage Mouth exam: PRESENT: moist, tongue midline Respiratory exam: PRESENT: clear to auscultation ishan, symmetrical, unlabored. ABSENT: rales, rhonchi, tachypnea, wheezes Cardiovascular exam: PRESENT: RRR, +S1, +S2 GI/Abdominal exam: PRESENT: normal bowel sounds, soft. ABSENT: distended, tenderness Rectal exam: PRESENT: deferred Extremities exam: ABSENT: joint swelling, pedal edema, tenderness Musculoskeletal exam: PRESENT: other - Decreased muscle mass Neurological exam: PRESENT: alert, awake, oriented to person, oriented to place, oriented to situation Psychiatric exam: PRESENT: flat affect. ABSENT: agitated, anxious Focused psych exam: ABSENT: delusional, restlessness Skin exam: PRESENT: dry, normal color, warm. ABSENT: rash Results Laboratory Results: 06/20/19 04:15 06/20/19 04:15 Impressions: Femur X-Ray 06/16/19 11:07 IMPRESSION: Status post left hip total arthroplasty, partially imaged. No obvious fracture or component loosening. Osteopenia. Pelvis X-Ray 06/16/19 11:07 IMPRESSION: Status post bilateral hip total arthroplasty with extensive heterotopic ossification about the bilateral arthroplasty components. There is significant osteopenia, which limits evaluation for fracture. Within this limitation, no obvious fracture or dislocation of the included pelvis, sacrum, or hips. Lower Extremity CT 06/16/19 15:02 IMPRESSION: 1. Osteopenia, which generally limits sensitivity for fracture. Within this limitation, no displaced fracture of sacrum, pelvis, or hips. 2. Status post bilateral total hip arthroplasty with extensive heterotopic ossification. There is no obvious fracture and general configuration is not significantly changed compared to prior examination dated 08/22/2018. 3. There may be acetabular component loosening on the left evidenced by a substantial medial lucency, which is difficult to compare to prior radiographs due to rotation and alignment. The distal femoral components are not completely imaged. 4. Distended urinary bladder. Correlate for urinary retention. Lumbar Spine CT 06/16/19 15:02 IMPRESSION: 1. No acute fracture or dislocation of the lumbar spine. Redemonstrated compression deformity of L3 status post kyphoplasty. 2. Osteopenia. 3. Very distended urinary bladder. Correlate for urinary retention. Bone Scan Nuclear Medicine 06/19/19 00:00 IMPRESSION: Persistent abnormal uptake in the right mid femur. This is stable dating back to December. Correlation with plain films is recommended. No other unexpected findings. No scintigraphic evidence of prostatic loosening. Assessment and Plan - Diagnosis (1) Left hip pain Is this a current diagnosis for this admission?: Yes Plan: 06/20/2019-multiple imaging studies do not reveal any new pathology in the hip. Dr. Marcos has been consulted for orthopedic surgery opinion. If the prosthesis is not loose there is likely no surgical intervention at this time. Continue current pain management. 06/21/2019-Dr. Marcos did see the patient. He does not see any obvious etiology for the increase in pain. He did ask Dr. Diaz to see the patient as well. Dr. Diaz has performed kyphoplasty on the patient earlier this year. If there is no surgical indication for treatment I will discharge the patient tomorrow. He will go back to [facility]. We can continue pain management as an outpatient. 06/22/2019-the patient was seen by Dr. Diaz from pain management. He adjusted the pain medication regimen. No surgical intervention is felt to be needed at this time. The patient will return to [facility] tomorrow. (2) Intractable low back pain Is this a current diagnosis for this admission?: Yes Plan: 06/20/2019-currently with reasonable pain control. Continue current medication regimen. 06/21/2019-continue current regimen. 06/22/2019-no new pathology was noted in the spine. He does have one compression fracture that was addressed with kyphoplasty. Pain management regimen was adjusted by Dr. Diaz. (3) Sickle cell anemia Qualifiers: Sickle-cell associated disorders: without crisis Qualified Code(s): D57.1 - 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 Is this a current diagnosis for this admission?: Yes Plan: 06/20/2019-he did receive 1 unit of packed red blood cells. His hemoglobin is now 7.1. I believe he is chronically at this level. We will continue to monitor. 06/21/2019-patient is stable. Consider rechecking hemoglobin in several days. 06/22/2019-stable. Monitoring by attending physician at [place]. (4) Seizure disorder Is this a current diagnosis for this admission?: Yes Plan: 06/20/2019-we will continue Keppra. According to the medication administration record from [place] [facility] the patient is currently on a weaning prot ocol for his Keppra. I will defer to his primary care provider to make any changes. We have kept his dose unchanged at this time. 06/21/2019-continue current dose of Keppra. 06/22/2019-we will discharge on current dose of Keppra. No seizure activity noted during this hospitalization. (5) DVT prophylaxis Is this a current diagnosis for this admission?: Yes Plan: 06/20/2019-continue Lovenox 06/21/2019-no change 06/22/2019-we will discontinue at discharge. (6) Constipation Qualifiers: Constipation type: unspecified constipation type Qualified Code(s): K59.00 - Constipation, unspecified Is this a current diagnosis for this admission?: Yes Plan: 06/21/2019-bisacodyl was ordered. The patient did have a bowel movement today. We will continue MiraLAX. 06/22/2019-resolved. Suggest continuing MiraLAX especially in light of the chronic pain medications. Also consider Linzess or Relistor. - Time Time Spent with patient: 15-24 minutes Medications reviewed and adjusted accordingly: Yes Anticipated discharge: SNF Within: within 24 hours
[2019-06-22] MEDS: MIRTAZAPINE 15 MG TABLET PO SCH (21:02)
[2019-06-23] MEDS: OXYCODONE HCL IR 5 MG TABLET PO SCH ×4 (01:50→13:44)
[2019-06-23 04:09] LABS: HEMATOCRIT 20.7 % (37.9-51.0); MEAN CORPUSCULAR HEMOGLOBIN 30.4 pg (27.0-33.4); MEAN CORPUSCULAR HGB CONC 34.3 g/dL (32.0-36.0); MEAN CORPUSCULAR VOLUME 89 fl (80-97); PLATELET COUNT 338 10^3/uL (150-450); RED BLOOD COUNT 2.33 10^6/uL (4.35-5.55); RED CELL DISTRIBUTION WIDTH 16.6 % (11.5-14.0); WHITE BLOOD COUNT 8.9 10^3/uL (4.0-10.5)
[2019-06-23 04:14] LABS: HEMOGLOBIN 7.1 g/dL (13.5-17.0)
--- NOTE | 2019-06-23 06:43 | PDOC PROGRESS REPORT ---
Subjective Progress Note for:: 06/23/19 Reason For Visit: INTRACTABLE LOW BACK AND HIP PAIN, INABILITY TO Left lower extremity pain Physical Exam Vital Signs: Temp Pulse Resp BP Pulse Ox 36.3 C 77 15 105/60 100 06/22/19 23:34 06/22/19 23:34 06/22/19 23:34 06/22/19 23:34 06/22/19 23:34 Intake & Output 06/21/19 06/22/19 06/23/19 06:59 06:59 06:59 Intake Total 1245 1426 1030 Output Total 900 Balance 345 1426 1030 Weight 52.3 kg 51.8 kg Physical Exam: Cachectic appearing young black male lying in bed in a position. The patient is awake and interactive. General appearance: PRESENT: thin Head exam: PRESENT: normocephalic Extremities exam: PRESENT: other - The patient continues to complain of pain at the junction of the middle and distal thirds of the left thigh associate with passive range of motion. There is no tenderness to palpation at this location. There is no induration erythema or other potential signs of an underlying septic process. Skin exam: PRESENT: dry, intact, warm. ABSENT: cyanosis, rash Results Laboratory Results: 06/23/19 03:49 06/20/19 04:15 06/23/19 03:49 WBC 8.9 RBC 2.33 L Hgb 7.1 L Hct 20.7 L MCV 89 MCH 30.4 MCHC 34.3 RDW 16.6 H Plt Count 338 Impressions: Femur X-Ray 06/16/19 11:07 IMPRESSION: Status post left hip total arthroplasty, partially imaged. No obvious fracture or component loosening. Osteopenia. Pelvis X-Ray 06/16/19 11:07 IMPRESSION: Status post bilateral hip total arthroplasty with extensive heterotopic ossification about the bilateral arthroplasty components. There is significant osteopenia, which limits evaluation for fracture. Within this limitation, no obvious fracture or dislocation of the included pelvis, sacrum, or hips. Lower Extremity CT 06/16/19 15:02 IMPRESSION: 1. Osteopenia, which generally limits sensitivity for fracture. Within this limitation, no displaced fracture of sacrum, pelvis, or hips. 2. Status post bilateral total hip arthroplasty with extensive heterotopic ossification. There is no obvious fracture and general configuration is not significantly changed compared to prior examination dated 08/22/2018. 3. There may be acetabular component loosening on the left evidenced by a substantial medial lucency, which is difficult to compare to prior radiographs due to rotation and alignment. The distal femoral components are not completely imaged. 4. Distended urinary bladder. Correlate for urinary retention. Lumbar Spine CT 06/16/19 15:02 IMPRESSION: 1. No acute fracture or dislocation of the lumbar spine. Redemonstrated compression deformity of L3 status post kyphoplasty. 2. Osteopenia. 3. Very distended urinary bladder. Correlate for urinary retention. Bone Scan Nuclear Medicine 06/19/19 00:00 IMPRESSION: Persistent abnormal uptake in the right mid femur. This is stable dating back to December. Correlation with plain films is recommended. No other unexpected findings. No scintigraphic evidence of prostatic loosening. Status: Imported from PACS Assessment & Plan - Diagnosis (1) Pain of left lower extremity Is this a current diagnosis for this admission?: Yes Plan: At this point I am at a loss to explain the patient's pain symptoms. Imaging studies would suggest that this is not an implant related etiology. Physical examination suggest that there is not an underlying septic component to this. In that this is thigh pain and the patient has had us procedure at the L3 level the possibility of an underlying neurogenic cause of the patient's discomfort has been entertained and Dr. Sameer Steiner has been involved in the case. It somewhat frustrating that a specific etiology of patient's pain cannot be identified and dealt with. This is led to a significant decline in the patient's functional status. - Time Time Spent with patient: 15-24 minutes Anticipated discharge: SNF Within: Other
[2019-06-23] MEDS: FOLIC ACID 1 MG TABLET PO SCH (09:42)
[2019-06-23] MEDS: LEVETIRACETAM 500 MG TABLET PO SCH (09:42)
[2019-06-23] MEDS: HYDROXYUREA 500 MG CAPSULE PO SCH (09:42)
[2019-06-23] MEDS: ENOXAPARIN SODIUM INJ 30 MG/0.3 ML DISP.SYRIN SUBCUT SCH (09:42)
[2019-06-23] MEDS: MULTIVITAMIN TABLET PO SCH (09:42)
[2019-06-23] MEDS: TAMSULOSIN HCL 0.4 MG CAP.SR.24H PO SCH (09:42)
[2019-06-23] MEDS: POLYETHYLENE GLYCOL 3350 POWDER 17 GM/1 PACKET PO SCH (10:23)
[2019-06-23] MEDS: METOPROLOL SUCCINATE 25 MG TAB.SR.24H PO SCH (10:24)
--- NOTE | 2019-06-23 13:56 | PDOC TRANSFER SUMMARY ---
General - Admit/Disc Date/PCP Admission Date/Primary Care Provider: 06/16/19 19:45 TITO SOFIA MD Discharge Date: 06/23/19 - Discharge Diagnosis (1) Left hip pain Is this a current diagnosis for this admission?: Yes Summary: The patient has history of left hip prosthesis from a previous fracture. Osteopenia was a likely contributor. The patient was seen by Dr. Marcos at discharge. Dr. Diaz has suggested a change in his pain medication regimen. He is going to return to [facility]. Physical therapy as tolerated. He did have a long discussion with the patient's uncle Mr. Kaplan, who is the primary caregiver, and he would like us to help arrange a second opinion. We will be setting up an appointment for the patient July [address] De Anda. (2) Intractable low back pain Is this a current diagnosis for this admission?: Yes Summary: The patient has history of osteopenia with compression fracture status post kyphoplasty earlier this year. The patient states that he is pain-free in the lumbar spine at this time. Pain management as above. (3) Sickle cell anemia Is this a current diagnosis for this admission?: Yes Summary: The patient will continue on his hydroxyurea. It is possible that there are microinfarcts in the bone from the sickle cell. If this is the case it may be very difficult to treat. (4) Seizure disorder Is this a current diagnosis for this admission?: Yes Summary: The patient did not experience any seizures during this hospitalization. We will continue his Keppra unchanged. (5) DVT prophylaxis Is this a current diagnosis for this admission?: Yes Summary: The patient was treated for DVT prophylaxis during this admission. I will defer to [facility] for their prophylaxis regimen. (6) Constipation Is this a current diagnosis for this admission?: Yes Summary: The patient should continue with a slightly more aggressive bowel regimen. Additional pain medication has been ordered. He is on scheduled MiraLAX with as needed Dulcolax. (7) Osteopenia Is this a current diagnosis for this admission?: Yes Summary: The patient has a long history of osteopenia. In fact this may have contributed to his compression fracture as well as bilateral hip fractures. There is still osteopenia. The patient's uncle states that he had a bone scan in [place] that indicated osteopenia. This was sometime ago. I explained to the uncle that Miacalcin is used to treat osteoporosis and sometimes is effective for bone pain. Her going to initiate a treatment plan with Miacalcin 1 spray daily. Alternate nostrils. We will see if this helps with his discomfort and osteopenia. - Additional Information Resuscitation Status: Full Code Discharge Diet: Regular Prescriptions: Calcium Carb, Citrate/Vit D3 [Calcium + D3 ER Tablet] 1 each PO BID #60 tablet.er Oxycodone HCl [Oxycodone HCl 10 MG Tablet] 10 mg PO Q4H PRN 5 Days #20 tablet PRN Reason: For Pain Scale 3-5 Home Medications: Hydroxyurea [Hydrea 500 mg Capsule] 500 mg PO DAILY 08/21/18 Levetiracetam [Keppra 500 mg Tablet] 500 mg PO Q12 08/21/18 Folic Acid 1 mg PO DAILY #90 tablet 08/27/18 Metoprolol Succinate [Toprol Xl 25 mg Tab.sr] 12.5 mg PO Q12 tab.sr.24h 08/27/18 Epoetin Denny [Procrit Inj 40,000 Unit/1 ml Vial (Oncology)] 40,000 unit SUBCUT ASDIR PRN 06/16/19 Mirtazapine [Remeron 15 mg Tablet] 15 mg PO QHS 06/16/19 Multivitamin/Iron/Folic Acid [Centrum Adults Tablet] 1 each PO DAILY 06/16/19 Tamsulosin HCl [Flomax 0.4 mg Cap.sr] 0.4 mg PO DAILY 06/16/19 Acetaminophen [Tylenol 325 mg Tablet] 650 mg PO Q4HP PRN tablet 06/23/19 Bisacodyl [Dulcolax 10 mg Supp.rect] 10 mg RI DAILYP PRN supp.rect 06/23/19 Bisacodyl [Dulcolax 5 mg Tablet] 5 mg PO DAILYP PRN tabec 06/23/19 Calcitonin,[place],Synthetic [Miacalcin Nasal [place] 200 Unit/[place] 3.7ML] 200 unit NASL DAILY spray.pump 06/23/19 Calcium Carb, Citrate/Vit D3 [Calcium + D3 ER Tablet] 1 each PO BID #60 tablet.er 06/23/19 Oxycodone HCl [Oxycodone HCl 10 MG Tablet] 10 mg PO Q4H PRN 5 Days #20 tablet 08/23/19 Polyethylene Glycol 3350 [Miralax Powder 17 gm/Packet] 17 gm PO DAILY powd.pack 06/23/19 History of Present Illness Admission Date/PCP: 06/16/19 19:45 TITO SOFIA MD Patient complains of: Hip and back pain History of Present Illness: Karson has had ongoing discomfort in his left hip especially as well as back p ain for many months. His physical activity has decreased. He was able to ambulate and due to the left hip pain now has significant weightbearing issues due to pain. He was admitted for pain management and work-up to try and isolate the cause of the left hip pain. Hospital Course Hospital Course: EMIL BARNES is a 29 year old male with a complex past medical history. The pertinent issues are bilateral hip arthroplasties and a history of compressi on fracture with kyphoplasty. The patient (and his uncle) report that the hip has not been the same since it dislocated and was reduced I believe in 2018. The pain has increased. He did have a compression fracture of L3 and underwent kyphoplasty with Dr. Diaz. The patient was seen by Dr. Marcos and Dr. Diaz during the admission. X-rays did not reveal any acute fractures. CT scan did not reveal any fractures. The patient cannot have an MRI on either thigh due to his prostheses. A bone scan was ordered. There was a hot spot on the right thigh but nothing on the left. There is no evidence of displacement of the prostheses in either hip. After discussion with the patient's uncle we are going to pursue a second opinion. The patient is going to transfer back to [facility] at this time with a trial of Miacalcin as noted above. Physical Exam Vital Signs: Temp Pulse Resp BP Pulse Ox 97.3 F 77 15 105/60 100 06/22/19 23:34 06/22/19 23:34 06/22/19 23:34 06/22/19 23:34 06/22/19 23:34 Intake & Output 06/22/19 06/23/19 06/24/19 06:59 06:59 06:59 Intake Total 1426 1030 Balance 1426 1030 Weight 51.8 kg General appearance: PRESENT: cooperative, mild distress, well-developed Head exam: PRESENT: atraumatic, normocephalic Eye exam: PRESENT: conjunctiva pale. ABSENT: scleral icterus Ear exam: PRESENT: normal external ear exam. ABSENT: bleeding, drainage Respiratory exam: PRESENT: clear to auscultation ishan, symmetrical, unlabored. ABSENT: rales, rhonchi, tachypnea, wheezes Cardiovascular exam: PRESENT: RRR, +S1, +S2 GI/Abdominal exam: PRESENT: normal bowel sounds, soft. ABSENT: distended, tenderness Musculoskeletal exam: PRESENT: other - Tender over the right thigh. Neurological exam: PRESENT: alert, awake, oriented to person, oriented to place, oriented to situation Psychiatric exam: PRESENT: flat affect. ABSENT: agitated, anxious Focused psych exam: ABSENT: delusional, restlessness Skin exam: PRESENT: dry, normal color, warm. ABSENT: rash Results Laboratory Results: 06/23/19 03:49 06/20/19 04:15 06/23/19 03:49 WBC 8.9 RBC 2.33 L Hgb 7.1 L Hct 20.7 L MCV 89 MCH 30.4 MCHC 34.3 RDW 16.6 H Plt Count 338 Impressions: Femur X-Ray 06/16/19 11:07 IMPRESSION: Status post left hip total arthroplasty, partially imaged. No obvious fracture or component loosening. Osteopenia. Pelvis X-Ray 06/16/19 11:07 IMPRESSION: Status post bilateral hip total arthroplasty with extensive heterotopic ossification about the bilateral arthroplasty components. There is significant osteopenia, which limits evaluation for fracture. Within this limitation, no obvious fracture or dislocation of the included pelvis, sacrum, or hips. Lower Extremity CT 06/16/19 15:02 IMPRESSION: 1. Osteopenia, which generally limits sensitivity for fracture. Within this limitation, no displaced fracture of sacrum, pelvis, or hips. 2. Status post bilateral total hip arthroplasty with extensive heterotopic ossification. There is no obvious fracture and general configuration is not significantly changed compared to prior examination dated 08/22/2018. 3. There may be acetabular component loosening on the left evidenced by a substantial medial lucency, which is difficult to compare to prior radiographs due to rotation and alignment. The distal femoral components are not completely imaged. 4. Distended urinary bladder. Correlate for urinary retention. Lumbar Spine CT 06/16/19 15:02 IMPRESSION: 1. No acute fracture or dislocation of the lumbar spine. Redemonstrated compression deformity of L3 status post kyphoplasty. 2. Osteopenia. 3. Very distended urinary bladder. Correlate for urinary retention. Bone Scan Nuclear Medicine 06/19/19 00:00 IMPRESSION: Persistent abnormal uptake in the right mid femur. This is stable dating back to December. Correlation with plain films is recommended. No other unexpected findings. No scintigraphic evidence of prostatic loosening. Transfer Plan - Disposition Transfer Plan: The patient will transfer back to [facility]. We have instituted a trial of Miacalcin. The patient does have a follow-up scheduled with Dr. De Anda the first week of July. - Time Spent with Patient Time spent with patient: Greater than 30 Minutes Qualifiers - * PATIENT BEING DISCHARGED WITH ANY OF THE FOLLOWING DIAGNOSIS: No Acute Heart Failure - Is this a Heart Failure Patient?: No Plan Time Spent: Greater than 30 Minutes
[2019-06-23] MEDS ORDERED: CALCITONIN,SALMON 6000 UNIT/30 SPRAY 3.7 ML NASL SCH (15:00)
[2019-06-23 16:17] VITALS: BP 114/64
[2019-06-23] MEDS ORDERED: GABAPENTIN 100 MG CAPSULE PO SCH (18:00)
== END 2019-06-23 15:50 | DRG 566 ==
LOC: ER 10:35 → EH 19:45 → 5 22:55
PROVIDERS: ADMIT Family Medicine; ATTEND Family Medicine
PROC: 30233N1 Transfusion of Nonautologous Red Blood Cells into Peripheral Vein, Percutaneous Approach (ICD-10-PCS; principal; 2019-06-17)
DX: M85.862 Other specified disorders of bone density and structure, left lower leg (principal); M25.552 Pain in left hip; M54.5 Low back pain; D57.1 Sickle-cell disease without crisis; G40.909 Epilepsy, unspecified, not intractable, without status epilepticus; Z87.81 Personal history of (healed) traumatic fracture; M19.90 Unspecified osteoarthritis, unspecified site; K21.9 Gastro-esophageal reflux disease without esophagitis; F32.9 Major depressive disorder, single episode, unspecified; Z74.09 Other reduced mobility; Z96.643 Presence of artificial hip joint, bilateral; Z79.899 Other long term (current) drug therapy; Z86.718 Personal history of other venous thrombosis and embolism; Z86.73 Personal history of transient ischemic attack (TIA), and cerebral infarction without residual deficits; K59.00 Constipation, unspecified; R01.1 Cardiac murmur, unspecified
CPT/HCPCS: 36415; 36430; 72131; 72170; 78315; 80048; 80053; 80076; 81001; 85025; 85027; 85045; 86850; 86900; 86901; 86902; 86920; 96374; 96375; 99285; A9561; J1650; J1885; J2270; J2405; J3490; J7030; P9016; Q9969

== ENCOUNTER → 2019-06-26 | Outpatient (CLI) | payer MEDICARE, MEDICAID ==
[2019-06-26 12:55] LABS: ABSOLUTE BASOPHILS # (AUTO) 0.1 10^3/uL (0.0-0.2); ABSOLUTE EOSINOPHILS # (AUTO) 0.1 10^3/uL (0.0-0.6); ABSOLUTE LYMPHOCYTES (AUTO) 2.8 10^3/uL (0.5-4.7); ABSOLUTE MONOCYTES (AUTO) 0.5 10^3/uL (0.1-1.4); ABSOLUTE NEUT (AUTO) 5.6 10^3/uL (1.7-8.2); BASOPHILS % (AUTO) 0.8 % (0-2); EOSINOPHILS % (AUTO) 1.6 % (0-6); HEMATOCRIT 22.8 % (37.9-51.0); LYMPHOCYTES % (AUTO) 30.8 % (13-45); MEAN CORPUSCULAR HGB CONC 33.6 g/dL (32.0-36.0); MEAN CORPUSCULAR VOLUME 89 fl (80-97); MONOCYTES % (AUTO) 5.7 % (3-13); PLATELET COUNT 351 10^3/uL (150-450); RED BLOOD COUNT 2.55 10^6/uL (4.35-5.55); RED CELL DISTRIBUTION WIDTH 16.8 % (11.5-14.0); SEGMENTED NEUTROPHILS % (AUTO) 61.1 % (42-78); TOTAL CELLS COUNTED % (AUTO) 100 %; WHITE BLOOD COUNT 9.2 10^3/uL (4.0-10.5)
[2019-06-26 13:19] LABS: HEMOGLOBIN 7.7 g/dL (13.5-17.0)
[2019-06-26 13:27] LABS: ANISOCYTOSIS 1+; OVALOCYTES 1+; PLATELET COMMENT ADEQUATE; POIKILOCYTOSIS 1+; TARGET CELLS 1+
== END ==
LOC: PNR 11:45
PROVIDERS: ATTEND Family Medicine
DX: D64.9 Anemia, unspecified (principal); R74.8 Abnormal levels of other serum enzymes
CPT/HCPCS: 85025

== ENCOUNTER → 2019-12-15 | Day surgery (SDC) | payer MEDICARE, MEDICAID ==
--- NOTE | 2019-12-15 16:00 | RADIOLOGY REPORT (SQ) ---
EXAM DESCRIPTION: PICC LINE REPLACEMENT; FLUORO/CV PLACEMENT COMPLETED DATE/TIME: 12/15/2019 11:53 am REASON FOR STUDY: Z47.1 AFTERCARE FOLLOWING JOINT REPLACEMENT SURGERY; AFTERCARE FOLLOWING JOINT REP LACEMENT SURGERY Z47.1 AFTERCARE FOLLOWING JOINT REPLACEMENT SURGERY COMPARISON: None. FLUOROSCOPY TIME: 1.3 seconds. 1 image submitted to PACS. TECHNIQUE: Integrated into the Procedure. LIMITATIONS: None. PROCEDURE: The procedure, risks, benefits, and alternatives were discussed with the patient in the p reprocedural area, and all questions were answered. Informed consent was obtained verbally and in wri ting. The patient was then brought to the procedural suite, positioned supine on the fluoroscopy table, and a time-out was performed. The left upper extremity and the external portion of the existing PICC we re subsequently prepped and draped with 2% chlorhexidine utilizing standard sterile technique. The e xisting PICC was then exchanged over a guidewire for a peel-away sheath. The inner dilator of the pe el-away sheath was in turn exchanged over the guidewire for a new 5 Latvian x 41 cm lumen PICC. The PICC was then advanced under fluoroscopic guidance into the SVC. After that, the peel-away sheath was removed and a fluoroscopic image of the chest was obtained to confirm proper position of the cat heter tip within SVC. The lumens of the PICC were then aspirated, flushed with sterile saline and heparinized. At the end of the procedure the PICC was secured in place and a sterile dressing applied over it. The patient tolerated the procedure well without immediate complication. At the end of the procedure the patient's condition was unchanged from the preprocedural baseline. No IV conscious sedation was administered. Physiologic monitoring was provided before, during, and after the procedure. Documentation of [id number] time performing proceduralist spent monitoring the patient: 15 minutes. IMPRESSION: Successful exchange of a left upper extremity PICC utilizing fluoroscopic guidance as de tailed above. COMMENT: Patient medication list reviewed: Yes- Quality ID# 130:Eligible professional attests to doc umenting in the medical record they obtained, updated, or reviewed the patient's current medications. . Quality ID 145: Final reports for procedures using fluoroscopy that document radiation exposure sarah renuka, or exposure time and number of fluorographic images (if radiation exposure indices are not avail able) Quality ID #76: The patient was prepped and draped using maximum sterile barrier technique including cap, mask, sterile gown, sterile gloves, a large sterile sheet, hand hygiene, and 2% Chlorhexidine fo r cutaneous antisepsis. When ultrasound is used, sterile ultrasound techniques are followed requiring sterile gel and sterile probes. TECHNICAL DOCUMENTATION: JOB ID: [id number] 2011 [employer]- All Rights Reserved rev-03/18 Reading location - IP/workstation name: [email or web address]
== END ==
LOC: RAD 11:00
PROVIDERS: ATTEND Family Medicine
DX: Z47.1 Aftercare following joint replacement surgery (principal)
CPT/HCPCS: 36584; 77001; C1769; J1642

== ENCOUNTER 2020-03-09 22:13 | Emergency (ER) | payer MEDICARE, MEDICAID ==
[2020-03-09] MEDS ORDERED: NORMAL SALINE 250 ML IV PRN ×3 (22:46→22:48)
--- NOTE | 2020-03-09 22:51 | ER Document Report ---
ED General - General Chief Complaint: Abnormal Lab Results Stated Complaint: BLOOD TRANSFUSION Time Seen by Provider: 03/09/20 22:45 Primary Care Provider: TITO SOFIA MD [Primary Care Provider] - Follow up as needed Mode of Arrival: Medic Notes: 30-year-old male resident of the [facility] in [facility] presents to the emergency department with orders by his attending physician for a transfusion of 1 unit of packed red blood cells. Apparently patient has a history of sickle cell disease without crisis, hypertension prior CVA with residual deficits involving the left upper and lower extremities. Apparently he has had multiple blood transfusions in the past. 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 Hemoglobin noted to be TRAVEL OUTSIDE OF THE [place] IN LAST 30 DAYS: No - Related Data Allergies/Adverse Reactions: No Known Drug Allergies Allergy (Unknown, Verified 06/16/19 10:37) Past Medical History - Social History Smoking Status: Never Smoker Frequency of alcohol use: None Drug Abuse: None Family History: None, Reviewed & Not Pertinent, Hypertension, Other Patient has homicidal ideation: No - Past Medical History Cardiac Medical History: Reports: Hx Heart Murmur Denies: Hx Atrial Fibrillation, Hx Congestive Heart Failure, Hx Coronary Artery Disease, Hx Heart Attack, Hx Hypertension - ON METOPROLOL FOR HEART RATE, Hx Peripheral Vascular Disease, Hx Pulmonary Embolism Pulmonary Medical History: Denies: Hx Asthma, Hx Bronchitis, Hx COPD, Hx Pneumonia, Hx Tuberculosis Neurological Medical History: Reports: Hx Cerebrovascular Accident - ANEURYSM 2010, LEFT SIDED DEFICIT, Hx Seizures - ON MEDS. Denies: Hx Parkinson's Disease Endocrine Medical History: Denies: Hx Graves' Disease, Hx Hyperthyroidism, Hx Hypothyroidism Renal/ Medical History: Denies: Hx Peritoneal Dialysis Malignancy Medical History: Denies Hx Leukemia, Denies Hx Lung Cancer GI Medical History: Reports: Hx Gastroesophageal Reflux Disease. Denies: Hx Pancreatitis, Hx Ulcer Musculoskeletal Medical History: Reports Hx Arthritis, Denies Hx Fibromyalgia, Denies Hx Multiple Sclerosis, Denies Hx Muscular Dystrophy, Denies Hx Systemic Lupus Erythematosus Psychiatric Medical History: Reports: Hx Anxiety, Hx Depression Denies: Hx Bipolar Disorder, Hx Dementia, Hx Schizophrenia Traumatic Medical History: Reports: Hx Fractures - proximal femur, Hx Spine Fracture Infectious Medical History: Denies: Hx HIV Past Surgical History: Reports: Hx Cholecystectomy, Hx Oral Surgery - reconstruction, Hx Orthopedic Surgery - Patient underwent open reduction internal fixation of bilateral proximal fe, Other - Patient tracheostomy and PEG tube placement [facility] 3 years. Denies: Hx Appendectomy, Hx Bowel Surgery, Hx Coronary Artery Bypass Graft, Hx Gastric Bypass Surgery, Hx Herniorrhaphy, Hx Pacemaker, Hx Tonsillectomy - Immunizations Immunizations up to date: Yes Hx Diphtheria, Pertussis, Tetanus Vaccination: No Hx Pneumococcal Vaccination: 08/05/12 Physical Exam - Vital signs Vitals: Resp Pulse Ox 8 L 94 03/09/20 22:16 03/09/20 22:16 Course - Vital Signs Vital signs: Temp Pulse Resp BP Pulse Ox 99.3 F 91 15 103/60 95 03/10/20 02:35 03/10/20 02:35 03/10/20 02:35 03/10/20 02:35 03/10/20 02:35 - Laboratory Result Diagrams: 03/09/20 22:40 Laboratory results interpreted by me: 03/09/20 03/09/20 22:40 22:40 WBC 16.3 H RBC 1.73 L Hgb 6.1 L Hct 17.0 L MCV 98 H MCH 35.4 H RDW 26.3 H Absolute Neuts (auto) 12.0 H Absolute Monos (auto) 1.7 H Crossmatch See Detail Discharge - Discharge Clinical Impression: Sickle cell anemia without crisis Anemia Qualifiers: Anemia type: other cause Other causes of anemia: other cause, not classified Qualified Code(s): D64.89 - Other specified anemias Condition: Good Disposition: HOME-SNF (ED ONLY) Additional Instructions: Patient was transfused a unit of packed RBCs in the emergency department today, was unable to be directly admitted to the hospital for that treatment. He has not been discharged back to the long-term care facility for further management and monitoring. HOME CARE INSTRUCTIONS & INFORMATION: Thank you for choosing us for your medical needs. We hope you're satisfied with the care you received. After you leave, you must properly care for your problem and, at the same time, observe its progress. Any condition can change. Some illnesses can change rapidly over hours or days. If your condition worsens, return to the Emergency Department or see your physician promptly. ABOUT YOUR X-RAYS AND EKG'S: If you had an EKG or X-rays taken, they have been read by the Emergency Physician. The X-rays and EKG's will also be read by a Radiologist or [employer] within 24 hours. If discrepancies are noted, you will be notified by telephone. Please be certain the ED has a correct telephone number & address where you can be reached. Also, realize that some fractures or abnormalities do not show up on initial X-rays. If your symptoms continue, see your physician. ABOUT YOUR LABORATORY TEST: If you had laboratory tests, the results have been reviewed by the Emergency Physician. Some test results (for example cultures) may not be available for several days. You will be contacted if any test result shows you need additional treatment. Please be certain the ED has a correct telephone number and address where you can be reached. ABOUT YOUR MEDICATIONS: You will receive instructions on how to take your medicine on the prescription label you receive. Additional information may be provided by the Pharmacy. If you have questions afterwards, call the ED for cla rification or further instructions. Some prescribed medications may cause drowsiness. Do not perform tasks such as driving a car or operating machinery without consulting your Pharmacist. If you feel you need a refill of pain medication, your condition will need re-evaluation. Please do not call for a refill of any medication. ABOUT YOUR SIGNATURE: Signature of this document acknowledges to followin. Understanding that you received emergency treatment and that you may be released before al medical problems are known or treated. Please be certain the ED has a correct phone number & address where you can be reached. 2. Acknowledgement that you will arrange for follow-up care as recommended. 3. Authorization for the Emergency Physician to provide information to your follow-up Physician in order to maximize your care. AT ANY TIME, IF YOUR SYMPTOMS CHANGE SIGNIFICANTLY OR WORSEN OR YOU DEVELOP NEW SYMPTOMS, RETURN TO THE EMERGENCY DEPARTMENT IMMEDIATELY FOR RE-EVALUATION. OUR GOAL IS TO PROVIDE EXCELLENT MEDICAL CARE! WE HOPE THAT WE HAVE MET YOUR EXPECTATIONS DURING YOUR EMERGENCY DEPARTMENT VISIT AND THAT YOU FEEL YOU HAVE RECEIVED EXCELLENT CARE! Referrals: TITO SOFIA MD [Primary Care Provider] - Follow up as needed
[2020-03-09 23:01] LABS: ABSOLUTE BASOPHILS # (AUTO) 0.1 10^3/uL (0.0-0.2); ABSOLUTE EOSINOPHILS # (AUTO) 0.3 10^3/uL (0.0-0.6); ABSOLUTE LYMPHOCYTES (AUTO) 2.2 10^3/uL (0.5-4.7); ABSOLUTE MONOCYTES (AUTO) 1.7 10^3/uL (0.1-1.4); BASOPHILS % (AUTO) 0.7 % (0-2); EOSINOPHILS % (AUTO) 1.6 % (0-6); LYMPHOCYTES % (AUTO) 13.5 % (13-45); MEAN CORPUSCULAR HEMOGLOBIN 35.4 pg (27.0-33.4); MEAN CORPUSCULAR VOLUME 98 fl (80-97); MONOCYTES % (AUTO) 10.6 % (3-13); PLATELET COUNT 248 10^3/uL (150-450); RED BLOOD COUNT 1.73 10^6/uL (4.35-5.55); RED CELL DISTRIBUTION WIDTH 26.3 % (11.5-14.0); SEGMENTED NEUTROPHILS % (AUTO) 73.6 % (42-78); TOTAL CELLS COUNTED % (AUTO) 100 %; WHITE BLOOD COUNT 16.3 10^3/uL (4.0-10.5)
[2020-03-09 23:23] LABS: HEMOGLOBIN 6.1 g/dL (13.5-17.0)
[2020-03-09 23:27] LABS: ANISOCYTOSIS 3+; OVALOCYTES 2+; POIKILOCYTOSIS 3+; POLYCHROMASIA 1+; TOXIC GRANULATION 1+
[2020-03-09 23:28] LABS: HOWELL-JOLLY BODIES PRESENT; SCHISTOCYTES SLIGHT; SICKLE RED CELLS 3+; TARGET CELLS 1+; TEAR DROP CELLS 1+
[2020-03-09 23:29] LABS: PLATELET COMMENT ADEQUATE
[2020-03-10 05:24] VITALS: BP 105/68
== END 2020-03-10 05:29 ==
LOC: ER 22:13
DX: D57.1 Sickle-cell disease without crisis (principal); I10 Essential (primary) hypertension
CPT/HCPCS: 99283; 86900; 86901; 36415; 36430; 84145; 86850; 85025; 80048; 86920; P9016

== ENCOUNTER → 2020-05-28 | Outpatient (CLI) | payer MEDICARE, MEDICAID ==
--- NOTE | 2020-05-28 10:21 | RADIOLOGY REPORT (SQ) ---
EXAM DESCRIPTION: CT CHEST WITH IMAGES COMPLETED DATE/TIME: 05/28/2020 9:00 am REASON FOR STUDY: OTHER NONSPECIFIC ABNORMAL FINDING OF LUNG FIELD (R91.8) R91.8 OTHER NONSPECIFIC ABNORMAL FINDING OF LUNG FIELD COMPARISON: 08/23/2018 TECHNIQUE: CT scan of the chest performed using helical scanning technique with dynamic intravenous contrast injection. Images reviewed with lung, soft tissue and bone windows. Reconstructed coronal and sagittal MPR and MIP images reviewed. All images stored on PACS. All CT scanners at this facility use dose modulation, iterative reconstruction, and/or weight based d osing when appropriate to reduce radiation dose to as low as reasonably achievable (ALARA). [facility]: Dose Right [facility]: CareDose [facility]: Dose Right [facility]: Teradose 4D [facility]: Weatherista CONTRAST TYPE AND DOSE: contrast/concentration: Isovue 350.00 mmol/ml; Total Contrast Delivered: 80. 0 ml; Total Saline Delivered: 55.0 ml RENAL FUNCTION: None required. The patient is less than 50 years old. RADIATION DOSE: CT Rad equipment meets quality standard of care and radiation dose reduction techniq ues were employed. CTDIvol: 5.4 mGy. DLP: 253 mGy-cm. . LIMITATIONS: None. FINDINGS: LUNGS AND PLEURA: 2 cm pleural-based solid nodule right lower lobe. 1.2 cm part solid nod ule left lower lobe. No effusions. HILAR AND MEDIASTINAL STRUCTURES: No identified masses or abnormal nodes. HEART AND VASCULAR STRUCTURES: No aneurysm or dissection. No central pulmonary emboli. No pericardi al effusion. HARDWARE: None in the chest. UPPER ABDOMEN: No significant findings. Limited exam. THYROID AND OTHER SOFT TISSUES: Gynecomastia. BONES: No acute findings. OTHER: No other significant finding. IMPRESSION: Pulmonary nodules as described above. TECHNICAL DOCUMENTATION: JOB ID: [id number] Quality ID # [id number]: Final reports with documentation of one or more dose reduction techniques (e.g., Au tomated exposure control, adjustment of the mA and/or kV according to patient size, use of iterative reconstruction technique) 2010 [employer]- All Rights Reserved Reading location - IP/workstation name: [email or web address]
== END ==
LOC: RAD 08:32
PROVIDERS: ATTEND Family Medicine
DX: R91.8 Other nonspecific abnormal finding of lung field (principal)
CPT/HCPCS: 71260

== ENCOUNTER 2020-07-17 20:25 | Emergency (ER) | payer MEDICARE, MEDICAID ==
--- NOTE | 2020-07-17 20:41 | ER Document Report ---
ED General - General Stated Complaint: ABNORMAL LABS Time Seen by Provider: 07/17/20 20:28 Primary Care Provider: TITO SOFIA MD [Primary Care Provider] - Follow up as needed Notes: Patient is a 30-year-old male with a history of sickle cell disease, right hip surgery this past summer after a fall who presents emergency department with a hemoglobin of 4.4. [facility] Patient has history of a stroke in the past. Patient states that he is primarily bedbound/wheelchair bound. He states that he has some pain in his leg, but it is the same pain from his surgery. TRAVEL OUTSIDE OF THE [place] IN LAST 30 DAYS: No - Related Data Allergies/Adverse Reactions: No Known Drug Allergies Allergy (Unknown, Verified 06/16/19 10:37) Past Medical History - General Information source: Patient - Social History Smoking Status: Never Smoker Family History: None, Reviewed & Not Pertinent, Hypertension, Other - Past Medical History Cardiac Medical History: Reports: Hx Heart Murmur Denies: Hx Atrial Fibrillation, Hx Congestive Heart Failure, Hx Coronary Artery Disease, Hx Heart Attack, Hx Hypertension - ON METOPROLOL FOR HEART RATE, Hx Peripheral Vascular Disease, Hx Pulmonary Embolism Pulmonary Medical History: Denies: Hx Asthma, Hx Bronchitis, Hx COPD, Hx Pneumonia, Hx Tuberculosis Neurological Medical History: Reports: Hx Cerebrovascular Accident - ANEURYSM 2010, LEFT SIDED DEFICIT, Hx Seizures - ON MEDS. Denies: Hx Parkinson's Disease Endocrine Medical History: Denies: Hx Graves' Disease, Hx Hyperthyroidism, Hx Hypothyroidism Renal/ Medical History: Denies: Hx Peritoneal Dialysis Malignancy Medical History: Denies Hx Leukemia, Denies Hx Lung Cancer GI Medical History: Reports: Hx Gastroesophageal Reflux Disease. Denies: Hx Pancreatitis, Hx Ulcer Musculoskeletal Medical History: Reports Hx Arthritis, Denies Hx Fibromyalgia, Denies Hx Multiple Sclerosis, Denies Hx Muscular Dystrophy, Denies Hx Systemic Lupus Erythematosus Psychiatric Medical History: Reports: Hx Anxiety, Hx Depression Denies: Hx Bipolar Disorder, Hx Dementia, Hx Schizophrenia Traumatic Medical History: Reports: Hx Fractures - proximal femur, Hx Spine Fracture Infectious Medical History: Denies: Hx HIV Past Surgical History: Reports: Hx Cholecystectomy, Hx Oral Surgery - reconstruction, Hx Orthopedic Surgery - Patient underwent open reduction internal fixation of bilateral proximal fe, Other - Patient tracheostomy and PEG tube placement [facility] 3 years. Denies: Hx Appendectomy, Hx Bowel Surgery, Hx Coronary Artery Bypass Graft, Hx Gastric Bypass Surgery, Hx Herniorrhaphy, Hx Pacemaker, Hx Tonsillectomy - Immunizations Immunizations up to date: Yes Hx Diphtheria, Pertussis, Tetanus Vaccination: No Hx Pneumococcal Vaccination: 08/05/12 Review of Systems - Review of Systems Notes: REVIEW OF SYSTEMS: CONSTITUTIONAL : Denies recent illness. Denies recent unintentional weight loss. Denies fever, chills, or sweats. EENT: Denies eye, ear, throat, or mouth pain, discharge, or symptoms. Denies nasal or sinus congestion. CARDIOVASCULAR: Denies chest pain. RESPIRATORY: Denies shortness of breath, cough, congestion, difficulty breathing, or wheezing. GASTROINTESTINAL: Denies nausea, vomiting, and diarrhea. Denies abdominal pain. Denies constipation. GENITOURINARY: Denies difficulty urinating, burning, blood in urine, urgency or frequency. MUSCULOSKELETAL: Denies neck and back pain. See HPI. SKIN: Denies rash, itchiness, or lesions HEMATOLOGIC : See HPI. LYMPHATIC: Denies swollen, painful, enlarged glands. NEUROLOGICAL: Denies no numbness or tingling denies weakness. Denies headache. Denies altered mental status. Denies alteration in speech. PSYCHIATRIC: Denies stress, anxiety, alteration in sleep patterns, or depression. All other systems reviewed and negative. Physical Exam - Vital signs Vitals: Resp Pulse Ox 12 99 07/17/20 20:30 07/17/20 20:30 - Notes Notes: PHYSICAL EXAMINATION: GENERAL: Appears well, healthy, well-nourished, no acute distress. HEAD: Normocephalic, atraumatic. EYES: PERRL, conjunctiva normal, all extraocular movements intact, sclera nonicteric ENT: Moist mucous membranes. NECK: Supple, no noticeable swelling, redness, rash. Normal range of motion. LUNGS: Equal breath sounds bilaterally and clear to auscultation. No wheezes rales or rhonchi. CARDIOVASCULAR: S1-S2, regular rate, regular rhythm. Radial pulses 2+, normal. ABDOMEN: Normoactive bowel sounds. Soft, nontender, no guarding, no rebound tenderness, and no masses palpated. EXTREMITIES: Tenderness noted to anterior left hip; slight contractures noted to lower extremities. Normal upper extremity strength. NEUROLOGICAL: Moves all extremities upon command. Strength 5/5 in all extremities. PSYCH: Normal mood, normal affect. SKIN: Warm, dry. No rash, lesions, ulcerations noted. Normal skin turgor. Surgical wound noted to left hip. Purulent drainage noted. Course - Re-evaluation Re-evalutation: 07/17/20 20:50 Patient's left hip wound from surgery has purulent drainage from the area. In his paperwork, states that he is supposed to go in for an aspirate of his left hip at [facility]. We will send the patient for a CT of the hip with contrast to evaluate if there is a possible hematoma, then will call [facility] for comparison. Patient typed and screened at this time. Called blood bank and notified them that he was here. According to the oven laborer, the patient has history of blood transfusions in the past. Will wait for lab work to come back. Patient is alert and oriented. 07/17/20 21:53 Patient's hemoglobin is 5.1 and hematocrit is 15. Will order 2 units of PRBCs. Chemistries are unremarkable. No leukocytosis noted on CBC. 07/18/20 01:13 I spoke with [facility] transfer line. Hope is to consult with orthopedic surgeon transmission specialist and discuss imaging. 07/18/20 06:21 I spoke with [facility] transfer center, the patient will be an ED to ED transfer. Dr. Anup Munoz will be the accepting physician. - Vital Signs Vital signs: Temp Pulse Resp BP Pulse Ox 98 F 72 14 98/63 L 98 07/18/20 05:45 07/18/20 05:42 07/18/20 05:42 07/18/20 05:42 07/18/20 05:42 - Laboratory Result Diagrams: 07/17/20 20:44 07/17/20 20:44 Laboratory results interpreted by me: 07/17/20 07/17/20 07/18/20 20:44 22:13 01:51 WBC 11.5 H RBC 1.43 L Hgb 5.1 L Hct 15.0 L* MCV 105 H MCH 35.6 H RDW 18.7 H Urine Blood SMALL H Urine Urobilinogen 4.0 H Crossmatch See Detail Discharge - Discharge Clinical Impression: Left hip pain Anemia Qualifiers: Anemia type: unspecified type Qualified Code(s): D64.9 - Anemia, unspecified Condition: Stable Disposition: [facility] Admitting Provider: Dr. Anup Tiwari Referrals: TITO SOFIA MD [Primary Care Provider] - Follow up as needed
[2020-07-17 21:05] LABS: ABSOLUTE BASOPHILS # (AUTO) 0.1 10^3/uL (0.0-0.2); ABSOLUTE EOSINOPHILS # (AUTO) 0.2 10^3/uL (0.0-0.6); ABSOLUTE LYMPHOCYTES (AUTO) 2.8 10^3/uL (0.5-4.7); ABSOLUTE NEUT (AUTO) 7.3 10^3/uL (1.7-8.2); BASOPHILS % (AUTO) 1.2 % (0-2); EOSINOPHILS % (AUTO) 1.7 % (0-6); LYMPHOCYTES % (AUTO) 24.6 % (13-45); MEAN CORPUSCULAR HEMOGLOBIN 35.6 pg (27.0-33.4); MEAN CORPUSCULAR HGB CONC 33.9 g/dL (32.0-36.0); MEAN CORPUSCULAR VOLUME 105 fl (80-97); MONOCYTES % (AUTO) 8.9 % (3-13); PLATELET COUNT 330 10^3/uL (150-450); RED BLOOD COUNT 1.43 10^6/uL (4.35-5.55); RED CELL DISTRIBUTION WIDTH 18.7 % (11.5-14.0); SEGMENTED NEUTROPHILS % (AUTO) 63.6 % (42-78); TOTAL CELLS COUNTED % (AUTO) 100 %; WHITE BLOOD COUNT 11.5 10^3/uL (4.0-10.5)
[2020-07-17 21:22] LABS: BLOOD UREA NITROGEN 16 mg/dL (7-20); CALCIUM 8.5 mg/dL (8.4-10.2); GLUCOSE 109 mg/dL (75-110); POTASSIUM 4.5 mmol/L (3.6-5.0)
[2020-07-17 21:28] LABS: ANION GAP 5 (5-19); CARBON DIOXIDE 29 mmol/L (22-30); CHLORIDE 105 mmol/L (98-107)
[2020-07-17 21:31] LABS: HEMOGLOBIN 5.1 g/dL (13.5-17.0)
[2020-07-17] MEDS ORDERED: NORMAL SALINE 250 ML IV PRN ×2 (21:51)
--- NOTE | 2020-07-17 23:05 | RADIOLOGY REPORT (SQ) ---
EXAM DESCRIPTION: CT PELVIS WITH IV CONTRAST COMPLETED DATE/TME: 07/17/2020 20:55 CLINICAL HISTORY: 30 years, Male, low hemoglobin; eval bleeding?; hx of left hip sx COMPARISON: Plain films 06/16/2019 TECHNIQUE: 430 Images stored on PACS. All CT scanners at this facility use dose modulation, iterative reconstruction, and/or weight based dosing when appropriate to reduce radiation dose to as low as reasonably achievable (ALARA). [facility]: Dose Right [facility]: CareDose [facility]: Dose Right [facility]: Teradose 4D [facility]: Smart [employer] LIMITATIONS: None. FINDINGS: The patient is status post bilateral total hip arthroplasties. There is associated artifact. Partial visualization of vertebral plasty changes at the L3 level. Osseous structures are otherwise grossly intact. Large amount of stool in the colon. No free air or free fluid in the pelvis. No gross CT evidence for intrapelvic hematoma, given limitations with artifact. IMPRESSION: No CT evidence for acute intrapelvic process. Streak artifact from hip prostheses does limit the exam. TECHNICAL DOCUMENTATION: Quality ID # 436: Final reports with documentation of one or more dose reduction techniques (e.g., Automated exposure control, adjustment of the mA and/or kV according to patient size, use of iterative reconstruction technique) copyright 2011 [employer]- All Rights Reserved
[2020-07-18 02:21] LABS: APPEARANCE,URINE CLEAR; BILIRUBIN,URINE NEGATIVE (NEGATIVE); COLOR,URINE YELLOW; GLUCOSE, URINE NEGATIVE (NEGATIVE); KETONES,URINE NEGATIVE (NEGATIVE); PROTEIN,URINE NEGATIVE (NEGATIVE); URINE SPECIFIC GRAVITY 1.027
[2020-07-18 07:03] LABS: HEMATOCRIT 23.9 % (37.9-51.0); MEAN CORPUSCULAR HEMOGLOBIN 34.4 pg (27.0-33.4); MEAN CORPUSCULAR HGB CONC 35.2 g/dL (32.0-36.0); PLATELET COUNT 284 10^3/uL (150-450); RED BLOOD COUNT 2.45 10^6/uL (4.35-5.55); RED CELL DISTRIBUTION WIDTH 18.7 % (11.5-14.0)
[2020-07-18 07:15] LABS: HEMOGLOBIN 8.4 g/dL (13.5-17.0); MEAN CORPUSCULAR VOLUME 98 fl (80-97)
[2020-07-18 07:18] LABS: ABSOLUTE LYMPHOCYTES# (MANUAL) 2.9 10^3/uL (0.5-4.7); ABSOLUTE MONOCYTES # (MANUAL) 0.4 10^3/uL (0.1-1.4); BASOPHILS % (MANUAL) 0 % (0-2); EOSINOPHILS % (MANUAL) 2 % (0-6); LYMPHOCYTES % (MANUAL) 32 % (13-45); MONOCYTES % (MANUAL) 4 % (3-13); NUCLEATED RED BLOOD CELLS 1 /100 WBC (0); SEGMENTED NEUTROPHILS % (MAN) 62 % (42-78); TOTAL CELLS COUNTED 100
[2020-07-18 07:21] LABS: ANISOCYTOSIS 1+; OVALOCYTES SLIGHT; POIKILOCYTOSIS 1+; POLYCHROMASIA SLIGHT; SICKLE RED CELLS 1+
[2020-07-18 07:22] LABS: PLATELET COMMENT ADEQUATE
[2020-07-18 08:20] VITALS: BP 90/58
== END 2020-07-18 09:57 | disposition short-term general hospital (02) ==
LOC: ER 20:25
DX: D64.9 Anemia, unspecified (principal); D57.1 Sickle-cell disease without crisis; M25.552 Pain in left hip; Z98.890 Other specified postprocedural states
CPT/HCPCS: 99285; 86900; 86901; 36415; 36430; 86850; 85025; 80053; 81001; 86920; 86902 ×4; 72193; P9016

== ENCOUNTER → 2020-09-12 | Outpatient (CLI) | payer MEDICARE, MEDICAID ==
--- NOTE | 2020-09-12 13:59 | RADIOLOGY REPORT (SQ) ---
EXAM DESCRIPTION: CT CHEST WITHOUT IMAGES COMPLETED DATE/TIME: 09/12/2020 1:24 pm REASON FOR STUDY: R91.1 SOLITARY PULMONARY NODULE R91.1 SOLITARY PULMONARY NODULE COMPARISON: 05/28/2020 TECHNIQUE: CT scan performed of the chest without intravenous contrast. Images reviewed with lung, soft tissue and bone windows. Reconstructed coronal and sagittal MPR images reviewed. All images st ored on PACS. All CT scanners at this facility use dose modulation, iterative reconstruction, and/or weight based d osing when appropriate to reduce radiation dose to as low as reasonably achievable (ALARA). [facility]: Dose Right [facility]: CareDose [facility]: Dose Right [facility]: Teradose 4D [facility]: Smart [employer] RADIATION DOSE: CT Rad equipment meets quality standard of care and radiation dose reduction techniq ues were employed. CTDIvol: 5.9 mGy. DLP: 259 mGy-cm. mGy. LIMITATIONS: No technical limitations. FINDINGS: LUNGS AND PLEURA: Minimal atelectatic changes in the lung bases. 28 mm subpleural nodule present on prior study is no longer evident. Left lower lobe pulmonary nodule seen on the prior stud y is no longer evident. HILAR AND MEDIASTINAL STRUCTURES: No identified masses or abnormal nodes. No obvious aneurysm. HEART AND VASCULAR STRUCTURES: Cardiomegaly. No aneurysm. No pericardial effusion. UPPER ABDOMEN: The spleen is small and extensively calcified. THYROID AND OTHER SOFT TISSUES: No masses. No adenopathy. BONES: No significant finding. HARDWARE: None in the chest. OTHER: No other significant findings. IMPRESSION: 1. Pulmonary nodules seen on the prior study is no longer evident, suggesting an inflam matory etiology. There is minimal atelectasis in the lung bases. 2. Cardiomegaly without pulmonary edema. TECHNICAL DOCUMENTATION: JOB ID: [id number] Quality ID # 436: Final reports with documentation of one or more dose reduction techniques (e.g., Au tomated exposure control, adjustment of the mA and/or kV according to patient size, use of iterative reconstruction technique) 2010 [employer]- All Rights Reserved Reading location - IP/workstation name: [email or web address]
--- OUTSIDE RECORDS SUMMARY | 2020-09-13 15:32 | XMS REPORT ---
:1990 [facility] [place] [address] [place] [id number] Care Team Providers Name Role Phone OMAURABUWOOD Primary Care Physician Unavailable BHARAT OLGUIN Attending Clinician Unavailable WINSOME LOPEZ Attending Clinician Unavailable JOEL WHYTE Attending Clinician Unavailable KENZIE HACKETT Attending Clinician Unavailable ALYSSA BUNDY Attending Clinician Unavailable Margareth Kim Attending Clinician Unavailable MIRANDA GOMEZ Attending Clinician Unavailable MELINA ABBASI Attending Clinician Unavailable XIMENA RESTREPO Attending Clinician Unavailable NICK MARTIN Attending Clinician Unavailable DAMION KHAN Attending Clinician Unavailable KEENAN PARRA Attending Clinician Unavailable NICK MARTIN Attending Clinician Unavailable VICKIE SAMANO Attending Clinician Unavailable Jr. Adilson Attending Clinician Unavailable Allergies, Adverse Reactions, Alerts This patient has no known allergies or adverse reactions. Medications Ordered Filled Start Stop Current Ordering Indication Dosage Frequency Signature Comments Components Medication Medication Date Date Medication? Clinician (SIG) Name Name meloxicam 2019-11 Yes 7.5mg QD Take 1 (MOBIC) 7.5 0-23 tablet MG tablet 00:00: (7.5 mg 00 total) by [place] [id number] 30g Q.5W 30 g, polystyrene 07-29 Oral, sulfon-sorb 09:00: Every itol (SPS) 00 Wednesday and oral Wednesday, suspension First dose 30 g (after last modificati on) on Wed07/29/20 at 0900
Ho ld if K is less than 5
enoxaparin 2020- No 40mg QD Inject 0.4 (LOVENOX) 07-26 10-21 mLs (40 mg 40 mg/0.4 00:00: 23:59 total) mL 00 :00 subcutaneo injection usly once syringe daily for 26 days For blood clot prevention acetaminoph 2019- 2020- No 1000mg Q8H Take 2 en 07-26- tablets (TYLENOL) 00:00: 23:59 (1,000 mg 500 MG 00 :00 total) by tablet mouth every 8 (eight) hours for 14 days Take tylenol three time a day for 14 days, then as needed. HYDROmorpho 2019-0 2020- No 2mg Q4H Take 1-2 ne 07-26 tablets (DILAUDID) 00:00: 23:59 (2-4 mg 2 MG tablet 00 :00 total) by mouth every 4 (four) hours as needed for Pain for up to 7 days HYDROmorpho 2019-0 2020- No 2mg Q3H 2-4 mg, ne 07-25 Oral, (DILAUDID) 12:20: 12:19 Every 3 tablet 2-4 00 :00 hours PRN, mg moderate pain (4-6), severe pain (7-10), Starting Wed07/25/20 at 1220, For 5 days
Gi ve 2 mg for Pain 4-6/10 pain Give 4 mg for Pain 7-10/10 pain<br&gt ; metoprolol No 25mg QD 25 mg, succinate 07-25 Oral, (TOPROL-XL) 09:00: Daily, XL tablet 00 First dose 25 mg (after last modificati on) on Wed07/25/20 at 0900
Ho ld for SBP < 110 or for HR < 55. D o not chew or crush.
enoxaparin 2020- No 40mg QD Inject 0.4 (LOVENOX) 07-25 mLs (40 mg 40 mg/0.4 00:00: 00:00 total) mL 00 :00 subcutaneo injection usly once syringe daily for 30 days ceFAZolin 2019-2019- No 2g Q.[id number] 2 g, in dextrose 07-24 11-05 [id number] Intraveno u (ANCEF) 16:00: 23:59 3D s, at 100 IVPB 2 g/50 00 :00 mL/hr, mL Every 8 hours, First dose on Wed07/24/20 at 1600, For 130 doses lidocaine 2019-0 No 3mL 3 mL, (XYLOCAINE) 07-24 Subcutaneo 1 % 10:26: us, As injection 3 14 Directed, mL For PICC insertion: May use 3ml and may repeat x 1 if needed to manage insertion pain, Starting Wed07/24/20 at 1026 epoetin 2020-0 No [id number] Q1W 40,000 bryan-epbx 07-24 Units, (RETACRIT) 09:00: Intravenou injection 00 s, Every 7 40,000 days, Units First dose on Wed07/24/20 at 0900
Refrigerat e. Do not tube, shake or agitate.
deferasirox 2019-0 No 720mg QD 720 mg, (JADENU) 07-24 Oral, tablet 720 08:00: Daily mg 00 before breakfast, First dose on Wed07/24/20 at 0800
* Take on an empty stomach or with a low-fat (<7% fat; ~250 joe) meal. Swallow with water or liquids. For difficulty swallowing , Jadenu may be crushed and mixed with soft foods (yogurt/ap plesauce) for immediate use.*&nbsp ; Do not take with aluminum-c ontaining antacid products. &nbs p;
acetaminoph 2019-0 2020- No 1000mg Q8H Take 2 en 07-24 tablets (TYLENOL) 00:00: 00:00 (1,000 mg 500 MG 00 :00 total) by tablet mouth every 8 (eight) hours for 30 days vancomycin 2019-0 2020- No 1g Q12H 1 g, (VANCOCIN) 07-23 Intravenou in 0.9% 20:00: 12:49 s, at 250 sodium 00 :44 mL/hr, chloride Every 12 IVPB 1 hours, g/250 mL First dose on Wed07/23/20 at 2000, For 14 days<br&gt ;For Administra tion via Peripheral or Central Line&nb sp;Recomme nded infusion rate not to exceed 1 gm/hr. Refrigerat e.
calcium 2019-0 No 1{tbl} 1 tablet, carbonate-v 07-23 Oral, 2 itamin D3 10:15: times 250-125 00 Daily with mg-unit meals, tablet 1 First dose tablet on Wed07/23/20 at 1015
Ea ch tablet contains calcium carbonate 625 mg (250 mg elemental calcium) and vitamin D3-125 units
calcitonin 2019- No 1{spray QD 1 spray, (salmon) 07-23 } Alternatin (MIACALCIN) 10:15: g Nares, nasal 1 00 Daily, spray First dose on Wed07/23/20 at 1015
Refrigerat e
pantoprazol No 40mg QD 40 mg, e 07-23 Oral, (PROTONIX) 10:00: Daily, EC tablet 00 First dose 40 mg on Wed07/23/20 at 1000
Do not crush, chew, or split. Swallow whole.<b r> hydroxyurea No 500mg QD 500 mg, (HYDREA) 07-23 Oral, capsule 500 10:00: Daily, mg 00 First dose on Wed07/23/20 at 1000
Do not open, crush, or chew. Caution: Hazardous drug- special handling and disposal in blue bin required.* *
enoxaparin 2019- No 40mg QD 40 mg, (LOVENOX) 07-23 Subcutaneo 40 mg/0.4 09:00: 08:59 us, Daily, mL inj 00 :00 First dose syringe 40 on Wed mg 07/23/20 at 0900, For 30 days
Administer subcutaneo us injection in the abdominal wall, rotating sites
ceFEPIme 2019- No 2g Q.07042132 2 g, (MAXIPIME) 07-23 [id number] Intravenou 2 g in 07:00: 12:49 3D s, Every 8 sodium 00 :44 hours, chloride First dose 0.9 % 100 on Wed mL IVPB 07/23/20 at 0700, For 14 days
Infuse bag over 4 hours for Extended Infusion Therapy. Contact pharmacy for help with IV medication compatibil ity and scheduling . &nbs p;
oxyCODONE 2020-0 2020- No 5mg Q3H 5-15 mg, (ROXICODONE 07-23 Oral, ) immediate 06:15: 09:43 Every 3 release 00 :07 hours PRN, tablet 5-15 moderate mg pain (4-6), severe pain (7-10), Starting 07/23/20 at 0615
gi ve 5 mg for 4-5/10 pain, give 10 mg for 6-7/10 pain, give 15 mg for 8-10/10 pain<br&gt ; HYDROmorpho 2020-0 2020- No .2mg 0.2-0.4 ne 07-22 mg, (DILAUDID) 17:44: 20:26 Intravenou 1 mg/mL inj 29 :55 s, Every 8 syringe min PRN, 0.2-0.4 mg FIRST LINE, Starting 07/22/20 at 1744, For 24 hours, PACU
Gi ve 0.2 mg for pain 4-6. Give 0.4 mg for pain 7-10.&nbsp ;Max dose 4 mg. If, after 2 mg, pain remains severe (7-10), change to 2nd-line agent.&nbs p;PACU use only
oxyCODONE 2020-0 2020- No 5mg Q4H 5-15 mg, (ROXICODONE 07-22 Oral, ) immediate 02:12: 06:13 Every 4 release 48 :16 hours PRN, tablet 5-15 moderate mg pain (4-6), severe pain (7-10), Starting 07/22/20 at 0212, For 112 hours
g lesli 5 mg for 4-5/10 pain, give 10 mg for 6-8/10 pain, give 15 mg for 9-10/10 pain
HYDROmorpho 2020-0 2020- No .5mg Q4H 0.5 mg, ne 07-22 Intravenou (DILAUDID) 02:12: 09:43 s, Every 4 0.5 mg/0.5 44 :33 hours PRN, mL inj Breakthrou syringe 0.5 gh Pain, mg Starting 07/22/20 at 0212, For 5 days acetaminoph No 975mg 975 mg, en 07-22 Oral, (TYLENOL) 00:00: Every 6 tablet 975 00 hours, mg First dose (after last modificati on) on Wed07/22/20 at 0000
Rhys arguello acetaminop hen intake from all sources should not exceed 75 mg/kg OR 4 grams in any 24 hour period, whichever is less.
lactated No at 100 Ringers 07-22 10-20 mL/hr, infusion 00:00: 23:54 Intravenou 00 :00 s, Continuous , Starting Wed07/22/20 at 0000, For 720 hours
K eep fluids running for at least 48 hours postop
mirtazapine No 15mg QD 15 mg, (REMERON) 07-21 Oral, tablet 15 21:00: Nightly, mg 00 First dose on 07/21/20 at 2099 gabapentin No 300mg Q.[id number] 300 mg, (NEURONTIN) 07-21 [id number] Oral, 3 capsule 300 21:00: 3D times mg 00 Daily, First dose on 07/21/20 at 2099 tamsulosin No .4mg QD 0.4 mg, (FLOMAX) 07-21 Oral, capsule 0.4 20:00: Daily, mg 00 First dose on 07/21/20 at 2000
Do not crush, chew, or split. Swallow whole.<b r> folic acid No 1mg QD 1 mg, (FOLVITE) 07-21 Oral, tablet 1 mg 20:00: Daily, 00 First dose on 07/21/20 at 1999 metoprolol 2019- No 25mg QD 25 mg, succinate 07-21 0922 Oral, (TOPROL-XL) 20:00: 06:13 Daily, XL tablet 00 :16 First dose 25 mg on 07/21/20 at 2000
Ho ld for SBP < 110 or for HR < 55. D o not chew or crush.
bisacodyL No 10mg Q24H 10 mg, (DULCOLAX) 9-20 Rectal, suppository 19:07: Daily PRN, 10 mg 47 Constipati on, Starting 07/21/20 at 1907 oxyCODONE 2019-0 2020- No 5mg Q4H 5-10 mg, (ROXICODONE 07-21- Oral, ) immediate 19:02: 02:13 Every 4 release 53 :11 hours PRN, tablet 5-10 moderate mg pain (4-6), severe pain (7-10), Starting 07/21/20 at 1902, For 5 days
gi ve 5 mg for 4-5/10 pain, give 10 mg for 6-10/10 pain
sennosides- 2020-0 No 1{tbl} Q.5D 1 tablet, docusate -20 Oral, 2 (SENOKOT-S) 17:00: times 8.6-50 mg 00 Daily, tablet 1 First dose tablet on 07/21/20 at 1700
Ho ld for diarrhea or cramping&n bsp;Contai ns sennosides 8.6 mg-docusat e 50 mg per tab.
polyethylen 2020-0 No 1{packe QD 17 g (1 e glycol 9-20 t} packet), (MIRALAX) 14:00: Oral, packet 17 g 00 Daily, First dose on 07/21/20 at 1400
Ho ld for diarrhea or cramping<b r> lactated 2019-0 2020- No at 30 Ringers -20 09-20 mL/hr, infusion 14:00: 19:08 Intravenou 00 :47 s, Continuous , Starting 07/21/20 at 1400, For 30 days
Un til taking oral fluids
lidocaine 2020-0 No .5mL 0.5 mL, (XYLOCAINE) -20 Subcutaneo 1 % 13:21: us, As injection 10 Directed, 0.5 mL For PIV insertion: may use lidocaine and may repeat x 1 for additional attempt., Starting 07/21/20 at 1321 lidocaine 2020-0 No .5mL 0.5 mL, (XYLOCAINE) 9-20 Subcutaneo 1 % 13:15: us, As injection 12 Directed, 0.5 mL For PIV insertion: may use lidocaine and may repeat x 1 for additional attempt., Starting 07/21/20 at 1315 diphenhydrA 2019- No 25mg Q8H 25 mg, MINE 07-2120 Oral, (BENADRYL) 13:02: 13:01 Every 8 capsule 25 08 :08 hours PRN, mg Itching, Allergies, Sleep, Starting 07/21/20 at 1302, For 30 days acetaminoph 2019- No 650mg Q6H 650 mg, en 07-21 Oral, (TYLENOL) 13:01: 19:15 Every 6 tablet 650 29 :52 hours PRN, mg mild pain (1-3), Starting 07/21/20 at 1301
Ma ximum acetaminop hen intake from all sources should not exceed 75 mg/kg OR 4 grams in any 24 hour period, whichever is less.
cefTRIAXone Yes Inject (ROCEPHIN) 8-04 into the injection 00:00: vein as 00 directed enoxaparin 2019- No 40mg QD Inject 0.4 (LOVENOX) 12-02-14 mLs (40 mg 40 mg/0.4 00:00: 23:59 total) mL 00 :00 subcutaneo injection usly once syringe daily for 13 days enoxaparin 2019- No 40mg QD 40 mg, (LOVENOX) 12-01 Subcutaneo 40 mg/0.4 09:00: 08:59 us, Daily, mL inj 00 :00 First dose syringe 40 on Wed mg 12/01/19 at 0900, For 30 days meloxicam 2019- No 7.5mg QD Take 1 (MOBIC) 7.5 12-01 tablet MG tablet 00:00: 23:59 (7.5 mg 00 :00 total) by mouth once daily for 30 days pantoprazol 2019- No 40mg QD Take 1 e 12-01 tablet (40 (PROTONIX) 00:00: 23:59 mg total) [address] 00 :00 by mouth tablet once daily for 30 days sennosides- 2019- No 1{tbl} Q.5D Take 1 docusate 12-01 tablet by (SENOKOT-S) 00:00: 23:59 mouth 2 8.6-50 mg 00 :00 (two) tablet times daily for 7 days oxyCODONE 2019- No 5mg Q4H Take 1-3 (ROXICODONE 12-01 tablets ) 5 MG 00:00: 23:59 (5-15 mg immediate 00 :00 total) by release mouth tablet every 4 (four) hours as needed (see pain scale) Take 5 mg for 4-5/10 pain, take 10 mg for 6-8/10 pain, take 15 mg for 9-10/10 pain for up to 5 days ceFAZolin 2019- No 2000mg Q8H Inject (ANCEF) 11-30 2,000 mg injection 00:00: 23:59 into the 00 :00 vein every 8 (eight) hours Pharmacy to determine diluent, concentrat ion, and rate of administra tion. for 39 days gabapentin 2019- No 300mg Q.[id number] Take 1 (NEURONTIN) 11-30 [id number] capsule 300 MG 00:00: 23:59 3D (300 mg capsule 00 :00 total) by mouth 3 (three) times daily for 30 days acetaminoph 2019- No 1000mg Q8H Take 2 en 11-30 tablets (TYLENOL) 00:00: 23:59 (1,000 mg 500 MG 00 :00 total) by tablet mouth every 8 (eight) hours for 14 days ceFAZolin 2019- No 2g Q.19689996 2 g, (ANCEF) in 11-2912 [id number] Intravenou dextrose 16:00: 15:59 3D s, at 120 IVPB 2 g/60 00 :00 mL/hr, mL Every 8 hours, First dose on Wed11/29/19 at 1600, For 14 days lidocaine No 3mL 3 mL, (XYLOCAINE) 11-29 Subcutaneo 1 % 14:33: us, As injection 3 55 Directed, mL For PICC insertion: May use 3ml and may repeat x 1 if needed to manage insertion pain, Starting Wed11/29/19 at 1433 bupivacaine 2020-0 2020- No Epidural, -HYDROmorph 11-29 at 4 one-NaCl 04:00: 17:14 mL/hr, (PF) 1.25 00 :40 Continuous mg/mL , Starting (0.125 Wed %)-11/29/19 at mcg/mL 0400, For epidural 111 hours
* *DO NOT GIVE promethazi ne (PHENERGAN ), other opioids or BATTALION FIRE CHIEF depressant s, or diphenhydr amine (BENADRYL) without Acute Pain Service ([id number]) approval.* * Oth er than unfraction ated heparin:&n bsp; DO NOT GIVE antithromb otic therapy UNTIL RESPECTIVE HOURS LISTED AFTER epidural catheter removed.&a mp;nbsp;&n bsp;If IV Heparin is used, notify anesthesia . &nb sp;Antithr ombotic therapy may be started after >6 HOURS for rivaroxaba n (Xarelto) and apixaban (Eliquis). Antithromb otic therapy may be started after >4 HOURS for enoxaparin (Lovenox). Antithromb otic therapy may be started after >2 HOURS for fondaparin ux (Arixtra), warfarin (Coumadin) , clopidogre l (Plavix), ticlodipin e (Ticlid), ticagrelor (Brilinta) , prasugrel (Effient), cilostazol (Pletal), abciximab (Reopro), eptifibati de (Integrili n), tirofiban (Aggrastat ), dabigratan (Pradaxa), anagrelide (Agrylin), alteplase (tPa, Cathflo Activase), reteplase (Retevase) and tenectepla se (TNKase).& nbsp;Fol ey catheters should remain in place in patients with infusing low thoracic(T 10 and below) and Lumbar epidural catheters. Contact APS for questions and concerns- [phone].* *
vancomycin 2019-0 2020- No .75g Q12H 0.75 g, (VANCOCIN) 11-29 Intravenou in 0.9% 02:00: 14:31 s, Every sodium 00 :21 12 hours, chloride First dose IVPB 0.75 on Wed g/250 mL 11/29/19 at 0200, For 14 days
For Administra tion via Peripheral or Central Line&nb sp;Recomme nded infusion rate not to exceed 1 gm/hr. Refrigerat e.
bupivacaine 2020-0 2020- No Epidural, -HYDROmorph 11-28 at 6 one-NaCl 18:00: 03:04 mL/hr, (PF) 1.25 00 :25 Continuous mg/mL , Starting (0.125 Tue %)-10 11/28/19 at mcg/mL 1800, For epidural 5 days
DO NOT GIVE promethazi ne (PHENERGAN ), other opioids or BATTALION FIRE CHIEF depressant s, or diphenhydr amine (BENADRYL) without Acute Pain Service ([id number]) approval.* * Oth er than unfraction ated heparin:&n bsp; DO NOT GIVE antithromb otic therapy UNTIL RESPECTIVE HOURS LISTED AFTER epidural catheter removed.&n bsp; If IV Heparin is used, notify anesthesia . &nb sp;Antithr ombotic therapy may be started after >6 HOURS for rivaroxaba n (Xarelto) and apixaban (Eliquis). Antithromb otic therapy may be started after >4 HOURS for enoxaparin (Lovenox). Antithromb otic therapy may be started after >2 HOURS for fondaparin ux (Arixtra), warfarin (Coumadin) , clopidogre l (Plavix), ticlodipin e (Ticlid), ticagrelor (Brilinta) , prasugrel (Effient), cilostazol (Pletal), abciximab (Reopro), eptifibati de (Integrili n), tirofiban (Aggrastat ), dabigratan (Pradaxa), anagrelide (Agrylin), alteplase (tPa, Cathflo Activase), reteplase (Retevase) and tenectepla se (TNKase).& nbsp;Fol ey catheters should remain in place in patients with infusing low thoracic(T 10 and below) and Lumbar epidural catheters. Contact APS for questions and concerns- [phone].* *
vancomycin 2020-0 No 1g 1 g, (VANCOCIN) 11-28 Intravenou in 0.9% 16:14: s, at 250 sodium 01 mL/hr, chloride Once, Wed IVPB 11/28/19 at g/250 mL 1430, For 1 dose
For Administra tion via Peripheral or Central Line&nb sp;Recomme nded infusion rate not to exceed 1 gm/hr. Refrigerat e.
sodium 2020-0 2020- No at 125 chloride 11-28 02-27 mL/hr, 0.9% 15:30: 15:13 Intravenou infusion 00 :00 s, Continuous , Starting Wed11/28/19 at 1530, For 30 days cefTRIAXone 2020-0 2020- No 2g Q24H 2 g, (ROCEPHIN) 11-28-29 Intravenou 2 g in 14:00: 14:31 s, at 200 sodium 00 :21 mL/hr, chloride Every 24 0.9 % 100 hours, mL IVPB First dose on Wed11/28/19 at 1400, For 14 days<br&gt ;*For patients > 28 days of age, flush between administra tion of ceftriaxon e and iv calcium products (including lactated ringers and TPN).*
pantoprazol 2020-0 No 40mg QD 40 mg, e 11-28 Oral, (PROTONIX) 09:00: Daily, EC tablet 00 First dose 40 mg on Wed11/28/19 at 0900
Do not crush, chew, or split. Swallow whole.<b r> polyethylen 2020-0 No 17g QD 17 g, e glycol 11-28 Oral, (MIRALAX) 09:00: Daily, packet 17 g 00 First dose on Wed11/28/19 at 0900
Ho ld for diarrhea or cramping<b r> meloxicam 2020-0 No 7.5mg QD 7.5 mg, (MOBIC) 11-28 Oral, tablet 7.5 09:00: Daily, mg 00 First dose on Wed11/28/19 at 0900 calcitonin 2020-0 No 1{spray QD 1 spray, (salmon) 11-28 } Alternatin (MIACALCIN) 09:00: g Nares, nasal 1 00 Daily, spray First dose on Wed11/28/19 at 0900
Refrigerat e
tamsulosin 2019-0 No .4mg QD 0.4 mg, (FLOMAX) 11-28 Oral, capsule 0.4 09:00: Daily, mg 00 First dose on Wed11/28/19 at 0900
Do not crush, chew, or split. Swallow whole.<b r> hydroxyurea 0 No 500mg QD 500 mg, (HYDREA) 11-28 Oral, capsule 500 09:00: Daily, mg 00 First dose on Wed11/28/19 at 0900
Do not open, crush, or chew. Caution: Hazardous drug- special handling and disposal in blue bin required.* *
folic acid 0 No 1mg QD 1 mg, (FOLVITE) 11-28 Oral, tablet 1 mg 09:00: Daily, 00 First dose on Wed11/28/19 at 0900 epoetin 2019-0 No 17904K 40,000 bryan 11-28 Units, (PROCRIT) 09:00: Intravenou injection 00 s, Weekly, 40,000 First dose Units on Wed11/28/19 at 0900
Refrigerat e. Do not tube, shake or agitate.
deferasirox 0 No 1000mg QD 1,000 mg, (EXJADE) 11-28 Oral, disintegrat 09:00: Daily, ing tablet 00 First dose 1,000 mg on Wed11/28/19 at 0900
Pr eparation: Completely disperse tablets by stirring in water, orange juice, or apple juice until a fine suspension is obtained. Disperse doses <1 gram in 3.5 oz. and doses of =1 gram in 7 oz. After swallowing suspension , re-suspend any residue in small volume of liquid and swallow.&n bsp; Administra tion:&nbsp ;&nbsp ;Do not chew or swallow tablets whole. Take on an empty stomach; at least 30 mins before meal. Do not take with aluminum-c ontaining antacid products.& nbsp;&nbsp ;
cholecalcif 2020-0 No 2000U QD 2,000 cyril 11-28 Units, (VITAMIN 09:00: Oral, D3) tablet 00 Daily, 2,000 Units First dose on Wed11/28/19 at 0900
1 mcg = 40 units
aspirin 2019-0 2020- No 81mg Q12H 81 mg, chewable 11-28 Oral, tablet 81 09:00: 06:14 Every 12 mg 00 :52 hours, First dose on Wed11/28/19 at 0900
Tablet may be chewed or crushed.
metoprolol 2019-0 2020- No 25mg QD 25 mg, succinate 11-28 Oral, (TOPROL-XL) 09:00: 03:00 Daily, XL tablet 00 :58 First dose 25 mg on Wed11/28/19 at 0900
Ho ld for SBP < 90 or for HR < 50. D o not chew or crush.
HYDROmorpho 2020-0 No .5mg Q4H 0.5 mg, ne 11-28 Intravenou (DILAUDID) 08:40: s, Every 4 1 mg/mL inj 28 hours PRN, syringe 0.5 Breakthrou mg gh Pain, Starting Wed11/28/19 at 0840, For 3 doses calcium 2019-0 No 1{tbl} 1 tablet, carbonate-v 11-28 Oral, 2 itamin D3 08:00: times 250-125 00 Daily with mg-unit meals, tablet 1 First dose tablet on Wed11/28/19 at 0800
Ea ch tablet contains calcium carbonate 625 mg (250 mg elemental calcium) and vitamin D3-125 units
sennosides- 2020-0 No 1{tbl} Q.5D 1 tablet, docusate 11-27 Oral, 2 (SENOKOT-S) 22:15: times 8.6-50 mg 00 Daily, tablet 1 First dose tablet on Wed11/27/19 at 2215
Ho ld for diarrhea or cramping&n bsp;Contai ns sennosides 8.6 mg-docusat e 50 mg per tab.
gabapentin No 300mg Q.[id number] 300 mg, (NEURONTIN) 11-27 [id number] Oral, 3 capsule 300 22:15: 3D times mg 00 Daily, First dose on Wed11/27/19 at 2215 acetaminoph No 975mg 975 mg, en 11-27 Oral, (TYLENOL) 22:15: Every 6 tablet 975 00 hours, mg First dose on Wed11/27/19 at 2215
Do not exceed 4 grams in 24 hour period
mirtazapine No 15mg QD 15 mg, (REMERON) 11-27 Oral, tablet 15 22:15: Nightly, mg 00 First dose on Wed11/27/19 at 2215 lactated 2019-0 2020- No at 125 Ringers 11-27 01-28 mL/hr, infusion 22:15: 14:31 Intravenou 00 :33 s, Continuous , Starting Wed11/27/19 at 2215, For 30 days
Un til taking oral fluids
ondansetron No 4mg Q6H [Order 1 (ZOFRAN-ODT 11-27 Start] ) 22:09: Name: disintegrat 55 ondansetro ing tablet n 4 mg (ZOFRAN-OD T) disintegra ting tablet 4 mg Signed Summary: 4 mg, Oral, Every 6 hours PRN, Nausea/Vom iting (1st line), Starting Wed11/27/19 at 2209
Gi ve 1st line or if prior dose (>6 hours ago) was effective, then reassess after 15 min. - If previous or current dose ineffectiv e, go to linked order for promethazi ne (Phenergan ).
[Order 1 End] [Order 2 Start] Name: ondansetro n (PF) (ZOFRAN) injection 4 mg Signed Summary: 4 mg, Intravenou s, Every 6 hours PRN, Nausea/Vom iting (1st line), if unable to take PO, Starting Wed11/27/19 at 2209
Gi ve 1st line or if prior dose (>6 hours ago) was effective, then reassess after 15 min. - If previous or current dose ineffectiv e, go to linked order for promethazi ne (Phenergan ). IV Push over 30 seconds to 2 minutes up to a MAXIMUM of 4 mg
[Order 2 End] [Order 3 Start] Name: promethazi ne (PHENERGAN ) tablet 12.5 mg Signed Summary: 12.5 mg, Oral, Every 6 hours PRN, Nausea/Vom iting (2nd line), Starting 11/27/19 at 2209
- Give if previously effective or if ondansetro n (Zofran) was ineffectiv e, then reassess after 15 min. - If previous or current dose ineffectiv e, go to linked order for metoclopra mide (Reglan).
[Order 3 End] [Order 4 Start] Name: promethazi ne in 0.9 % NaCl (PHENERGAN ) 6.25 mg/50 mL IVPB 6.25 mg Signed Summary: 6.25 mg, Intravenou s, at 200 mL/hr, Every 4 hours PRN, Nausea/Vom iting (2nd line), if unable to take PO, Starting 11/27/19 at 2209
- Give if previously effective or if ondansetro n (Zofran) was ineffectiv e, then reassess after 15 min. - If previous or current dose ineffectiv e, go to linked order for metoclopra mide (Reglan). Fo r IV administra tion: give slowly over 15 minutes preferably in an already infusing line. Avoid injecting into hand or wrist veins and assess for burning and pain with injection. Please contact pharmacy as need.
[Order 4 End] lidocaine 2020-0 No .5mL 0.5 mL, (XYLOCAINE) 11-27 Subcutaneo 1 % 22:09: us, As injection 54 Directed, 0.5 mL For PIV insertion: may use lidocaine and may repeat x 1 for additional attempt., Starting 11/27/19 at 2209 oxyCODONE 2020-0 2020- No 5mg Q3H 5-15 mg, (ROXICODONE 11-27 Oral, ) immediate 22:09: 22:08 Every 3 release 54 :54 hours PRN, tablet 5-15 see pain mg scale, Starting Wed11/27/19 at 2209, For 5 days
5 mg prn pain 3-4/10&nbs p;10 mg prn pain 5-6/10&nbs p;15 mg prn pain 7-10/10
bisacodyL No 10mg Q24H 10 mg, (DULCOLAX) 11-27 Rectal, suppository 22:09: Daily PRN, 10 mg 53 Constipati on, Starting Wed11/27/19 at 2209
If no bowel movement by dinnertime (1700) POD 1, give bisacodyl 10mg per rectum daily PRN. If no bowel movement after 2 hrs, give Fleets enema (if ordered) or contact provider<b r> lactated 2019- No at 100 Ringers 11-27 mL/hr, infusion 20:45: 08:40 Intravenou 00 :18 s, Continuous , Starting Wed11/27/19 at 2045, For 30 days, PACU fentaNYL 2019- No 25ug 25 mcg, (PF) 11-27 Intravenou (SUBLIMAZE) 20:30: 22:10 s, Every 5 injection 33 :04 min PRN, 25 mcg moderate pain (4-6), severe pain (7-10), Breakthrou gh Pain, FIRST LINE, Starting Wed11/27/19 at 2030, For 24 hours, PACU
Gi ve 25 mcg for pain 4-6. Give 50 mcg for pain 7-10.&nbsp ;Max dose 400 mcg. If, after 200 mcg, pain remains severe (7-10), change to 2nd-line agent.&nbs p;PACU use only
bupivacaine 2020- No Epidural, -HYDROmorph 11-27 at 6 one-NaCl 14:15: 17:02 mL/hr, (PF) 1.25 00 :53 Continuous mg/mL , Starting (0.125 Mon %)-11/27/19 at mcg/mL 1415, For epidural 5 days
DO NOT GIVE promethazi ne (PHENERGAN ), other opioids or BATTALION FIRE CHIEF depressant s, or diphenhydr amine (BENADRYL) without Acute Pain Service ([id number]) approval.* * Oth er than unfraction ated heparin:&n bsp; DO NOT GIVE antithromb otic therapy UNTIL RESPECTIVE HOURS LISTED AFTER epidural catheter removed.&n bsp; If IV Heparin is used, notify anesthesia . &nb sp;Antithr ombotic therapy may be started after >6 HOURS for rivaroxaba n (Xarelto) and apixaban (Eliquis). Antithromb otic therapy may be started after >4 HOURS for enoxaparin (Lovenox). Antithromb otic therapy may be started after >2 HOURS for fondaparin ux (Arixtra), warfarin (Coumadin) , clopidogre l (Plavix), ticlodipin e (Ticlid), ticagrelor (Brilinta) , prasugrel (Effient), cilostazol (Pletal), abciximab (Reopro), eptifibati de (Integrili n), tirofiban (Aggrastat ), dabigratan (Pradaxa), anagrelide (Agrylin), alteplase (tPa, Cathflo Activase), reteplase (Retevase) and tenectepla se (TNKase).& nbsp;Fol ey catheters should remain in place in patients with infusing low thoracic(T 10 and below) and Lumbar epidural catheters. Contact APS for questions and concerns- [phone].* *
aspirin EC 2020-0 No 162mg 162 mg, tablet 162 11-27 Oral, mg 14:05: Once, Wed11/27/19 at 1400, For 1 dose, Pre-op
Do not crush, chew, or split. Swallow whole.<b r> lactated 2020-0 No 500mL 500 mL, ringers 11-27 Intravenou bolus 500 13:06: s, Once, mL 41 Wed11/27/19 at 1245, For 1 dose, Pre-op
Please give as fast as you can (wide open).
deferasirox 2020-0 Yes 1000mg QD Take 1,000 (EXJADE) 1-10 mg by 500 MG 08:46: mouth once disintegrat 49 daily ing tablet epoetin 2019-0 Yes 48466S Inject bryan 1-10 40,000 (PROCRIT) 08:46: Units into 40,000 49 the vein unit/mL once a injection week On Wednesday cholecalcif 2019-0 No 4000U QD Take 4,000 cyril, 1-10 Units by vitamin D3, 08:46: mouth once (VITAMIN 49 daily D3) 4,000 unit Cap multivitami 2019-0 2020- No 1{tbl} QD Take 1 n/iron/foli 1-22 tablet by c acid 08:46: 00:00 mouth once (CERTAVITE- 49 :00 daily ANTIOXIDANT ORAL) oxyCODONE 0 2019- No 10mg Q4H Take 10 mg (DAZIDOX) 1-12-01 by mouth 10 mg 08:46: 00:00 every 4 immediate 49 :00 (four) release hours as tablet needed for Pain bisacodyl [address] 10 (DULCOLAX, 1-10 mg BISACODYL,) 08:28: rectally 10 mg 53 once daily suppository as needed for Constipati on Exjade 2018-11 Yes 2 2-17 00:00: 00 aspirin 81 2018-11 2020- No Take by MG chewable 0-31 - mouth tablet 11:45: 00:00 29 :00 hydroxyurea 2018-11 Yes 500mg QD Take 500 (HYDREA) 0-10 mg by 500 mg 10:52: mouth once capsule 17 daily folic acid 2018-11 Yes 1mg QD Take 1 mg (FOLVITE) 1 0-10 by mouth MG tablet 10:52: once daily 17 tamsulosin 2018-11 Yes .4mg QD Take 0.4 (FLOMAX) 0-10 mg by 0.4 mg 10:52: mouth once capsule 17 daily Take 30 minutes after same meal each day. calcitonin, 2018-11 Yes 1{spray QD 1 spray salmon, 0-10 } alternatin (FORTICAL) 10:52: g nostrils 200 17 in the unit/actuat morning ion nasal spray metoprolol 2018-11 Yes 25mg QD Take 25 mg succinate 0-10 by mouth (TOPROL-XL) 10:52: once daily 25 MG XL 17 tablet calcium 2018-11 Yes 1{tbl} Take 1 carbonate-v 0-10 tablet by itamin D3 10:52: mouth 2 (OYSTER 17 (two) SHELL times CALCIUM-VIT daily with D3) 500 meals mg(1,250mg) -200 unit tablet mirtazapine 2018-11 Yes 15mg QD Take 15 mg (REMERON) 0-10 by mouth 15 MG 10:52: nightly tablet 17 bisacodyl 2018-11 Yes 5mg Q24H Take 5 mg (DULCOLAX) 0-10 by mouth 5 mg EC 10:52: once daily tablet 17 as needed for Constipati on polyethylen 2018-11 Yes 17g Q24H Take 17 g e glycol 0-10 by mouth 3350 10:52: once daily (MIRALAX 17 as needed ORAL) acetaminoph 2018-11 2020- No 650mg Q4H Take 650 en 0-10 01-31 mg by (TYLENOL) 10:52: 00:00 mouth 325 MG 17 :00 every 4 tablet (four) hours as needed for Pain ascorbic 2018-11 2020- No 500mg QD Take 500 acid, 0-10 01-10 mg by vitamin C, 10:52: 00:00 mouth once (VITAMIN C) 17 :00 daily 500 MG tablet levETIRAcet 2018-11 2020- No 500mg Q.5D Take 500 am (KEPPRA) 0-10 01-10 mg by 500 MG 10:52: 00:00 mouth 2 tablet 17 :00 (two) times daily oxyCODONE 2018-11 2020- No 10mg Q.25D Take 10 mg (OXYCONTIN) 0-10 01-10 by mouth 4 10 MG CR 10:52: 00:00 (four) tablet 17 :00 times daily as needed for Pain Boost - Yes QD 1 ml 7-05 Orally 00:00: daily 00 ondansetron 2013-11- No Take by (ZOFRAN-ODT 2-18 01-10 mouth ) 4 MG 00:00: 00:00 disintegrat 00 :00 ing tablet aspirin 325 No 1 Q1D aspirin mg tablet 325 mg Take 1 tablet tablet Take 1 every day tablet by oral every day route. by oral route. chlorhexidi No chlorhexid ne ine gluconate gluconate 0.12 % 0.12 % mouthwash mouthwash diclofenac No diclofenac sodium 50 sodium 50 mg mg tablet,dru tablet,del yed release ayed release Enteric No 1 Q1D Enteric Coated Coated Aspirin 81 Aspirin 81 mg mg tablet,dru tablet,del yed release ayed Take 1 release tablet Take 1 every day tablet by oral every day route. by oral route. Exjade 500 No Exjade 500 mg mg dispersible dispersibl tablet e tablet Levaquin No 1 Q24H Levaquin 500 mg 500 mg tablet Take tablet 1 tablet Take 1 every 24 tablet hours by every 24 oral route hours by for 30 oral route days. for 30 days. levetiracet No levetirace am 500 mg resendiz 500 mg tablet tablet levofloxaci No levofloxac n 750 mg in 750 mg tablet tablet megestrol No megestrol 40 mg 40 mg tablet tablet metoprolol No metoprolol succinate succinate ER 25 mg ER 25 mg tablet,exte tablet,ext nded ended release 24 release 24 hr hr metronidazo No metronidaz le 500 mg ole 500 mg tablet tablet misoprostol No misoprosto 200 mcg l 200 mcg tablet tablet oxycodone 5 No 1 Q5H oxycodone mg tablet 5 mg Take 1 tablet tablet Take 1 every 4-6 tablet hours by every 4-6 oral route. hours by oral route. oxycodone-a No oxycodone- cetaminophe acetaminop n 5 mg-325 hen 5 mg tablet mg-325 mg Take 1 tablet tablet Take 1 every 6 tablet hours by every 6 oral route hours by as needed oral route for 30 as needed days. for 30 days. Tylenol No 2capsul Q8H Tylenol Extra e(s) Extra Strength Strength 500 mg 500 mg capsule capsule Take 2 Take 2 capsules capsules every 8 every 8 hours by hours by oral route. oral route. Vitamin D3 No 1capsul Q1D Vitamin D3 1,000 unit e(s) 1,000 unit capsule capsule Take 1 Take 1 capsule capsule every day every day by oral by oral route. route. Mirtazapine Yes QD 1 tablet 7.5 MG Orally daily Magnesium Yes QD 2 tablets Oxide 400 Orally MG Once a day Levetiracet Yes BID 1 tablet am 1000 MG Orally every 12 hrs Exjade 1125 Yes QD 1 tablet mg Orally once a day Vitamin D-3 Yes QD 1 capsule 1000 UNIT Orally Once a day Aspirin 81 Yes QD 1 tablet MG Orally Once a day Folic Acid Yes QD 1 tablet 1 MG Orally Once a day Tamsulosin Yes QD 1 capsule HCl 0.4 MG 30 minutes after the same meal each day Orally Once a day Acetaminoph Yes 2 en Bisacodyl Yes 1U CertaVite Yes 1 Senior/Anti oxidant Correctol Yes 1 Flomax Yes 1 Folic Acid Yes 1 Fortical No 1U GlycoLax Yes 1U Hydroxyurea Yes 1 Mirtazapine Yes 1 oxyCODONE Yes 1 HCl Procrit Yes 1U Toprol XL Yes 1 Vitamin D Yes 1 Maintenance Fortical Yes 1U cholecalcif Yes 1{tbl} Q.5D Take 1 cyril, tablet by vitamin D3, mouth 2 (VITAMIN D3 (two) ORAL) times daily pantoprazol Yes 40mg QD Take 40 mg e by mouth (PROTONIX) once daily [address] tablet sennosides- Yes 1{tbl} Q.5D Take 1 docusate tablet by (SENOKOT-S) mouth 2 8.6-50 mg (two) tablet times daily sodium Yes 69300 30mL Q.5W Take 30 polystyrene mLs by (KAYEXALATE mouth ) 15 every gram/60 mL Wednesday and suspension Wednesday vancomycin No 1.25g 1.25 g, (VANCOCIN) Intravenou in 0.9% s, at 200 sodium mL/hr, chloride Once, Tue IVPB 1.25 07/23/20 at g/250 mL 0800, For 1 dose
For Administra tion via Peripheral or Central Line&nb sp;Recomme nded infusion rate not to exceed 1 gm/hr. Refrigerat e.
oxyCODONE-a Yes Take by cetaminophe mouth as n directed (PERCOCET) 5-325 mg tablet chlorhexidi Yes Swish and ne spit as (PERIDEX) directed 0.12 % solution cephalexin No 500mg Q6H Take 500 (KEFLEX) mg by 500 MG mouth capsule every 6 (six) hours acetaminoph No 650mg Q4H Take 650 en mg by (TYLENOL) mouth 325 MG every 4 tablet (four) hours as needed for Pain oxyCODONE 2020- No 5mg Q12H Take 5 mg (ROXICODONE 09-25 by mouth ) 5 MG 00:00 every 12 immediate :00 (twelve) release hours as tablet needed for Pain acetaminoph 2020- No 650mg Q4H Take 650 en 09-25 mg by (TYLENOL) 00:00 mouth 325 MG :00 every 4 tablet (four) hours as needed for Fever (for temp >101 F) meloxicam 2019- No 7.5mg QD Take 7.5 (MOBIC) 7.5 09-23 mg by MG tablet 00:00 mouth once :00 daily oxyCODONE 2020- No 10mg Q12H Take 10 mg (OXYCONTIN) -22 by mouth 10 MG CR 00:00 every 12 tablet :00 (twelve) hours Problems Condition Condition Condition Status Onset Resolution Last Treatin g Comments Name Details Category Date Date Treatment Clinician Date Mechanical Mechanical [id number] 2019-12-01 loosening loosening 12-01 16:12:50 of internal of internal 00:00: left hip left hip 00 prosthetic prosthetic joint joint Prosthetic Prosthetic [id number] Inactiv 2019-12-12 joint joint e 12-01 18:50:09 infection infection 00:00: of left hip of left hip 00 Acute Acute [id number] 2019-12-01 post-operat post-operat 12-01 16:46:09 lesli pain lesli pain 00:00: 00 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 2019-12-01 ossificatio ossificatio 12-01 16:46:56 n n 00:00: 00 Prosthetic Prosthetic 10921260 Active 2020-07-22 joint joint 12-01 20:08:58 infection infection 00:00: of left hip of left hip 00 CVA CVA [id number] Active 2020-07-22 Over view: (cerebral (cerebral 11-10 07:50:00 CVA age 6 vascular vascular 00:00: with l eft accident) accident) 00 uppe r extremit y hemipare s is Cognitive Cognitive 85676107 Active 2019-11-10 impairment impairment -10 14:13:07 00:00: 00 Lives in Lives in [id number] Active 2019-11-10 Ov erview: long-term long-term 11-10 14:13:40 Un[facility] 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 Traumatic Traumatic [id number] Active 2019-11-10 Overview: hemorrhage hemorrhage 11-10 14:14:59 ~ 08/2000 of cerebrum of cerebrum 00:00: after a 00 fall c/b seizures at that time Heart Heart Problem Active murmur Murmur 2 00:00: 00 Anemia, Anemia, Problem Active 2017-11 unspecified unspecified 00:00: 00 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 00 n n Pressure Pressure Problem Active ulcer of ulcer of 7-05 sacral sacral 00:00: region, region, 00 stage 1 stage 1 Iron Iron Problem Active deficiency deficiency 3-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) Displaced Displaced Problem Active intertrocha intertrocha 3-17 nteric nteric 00:00: fracture of fracture of 00 left femur, left femur, subsequent subsequent encounter encounter for closed for closed fracture fracture with with routine routine healing healing Hb-SS Hb-SS Problem Active disease disease 2-04 with with 00:00: crisis, crisis, 00 unspecified unspecified Sickle cell Sickle Cell Problem Active 2016-11 trait Trait 2 00:00: 00 Cerebrovasc Cerebrovasc Problem Active 2016-11 ular ular 2 accident Accident 00:00: 00 Hemochromat Hemochromat Problem Active osis due to osis due to -04 repeated repeated 00:00: red blood red blood 00 cell cell transfusion transfusion s s Priapism Priapism Problem Active due to due to -04 disease disease 00:00: classified classified 00 elsewhere elsewhere Displaced Displaced Problem Active intertrocha intertrocha 7-04 nteric nteric 00:00: fracture of fracture of 00 left femur, left femur, initial initial encounter encounter for closed for closed fracture fracture Unspecified Unspecified Problem Active sequelae of sequelae of 7-04 cerebral cerebral 00:00: infarction infarction 00 Nontraumati Nontraumati Problem Active c c 05-04 intracerebr intracerebr 00:00: al al 00 hemorrhage, hemorrhage, unspecified unspecified 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 Transfus i on iron overload on exjade, Status post cholecys t ectomy March 2012 . 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 [facility] had a [facility] until December of 2013, now residing at [facility] in [facility] . Priapism Priapism Problem Active 07-22 00:00: 00 Intracerebr Intracerebr Problem Active al al 07-22 hemorrhage hemorrhage 00:00: 00 sickle cell sickle cell Problem Active disease,uns disease,uns 07-22 pecified pecified 00:00: 00 Pulmonary Pulmonary Problem Active valve valve 07-22 disorders disorders 00:00: 00 Epilepsy Epilepsy Problem Active 07-22 00:00: 00 Hemochromat Hemochromat Diagnosis active osis osis Hemoglobin Hemoglobin Diagnosis active SS disease SS disease without without crisis crisis Decreased Decreased [id number] Active 2019-11-28 mobility mobility 19:52:30 Procedures Procedure Date / Time Performed Performing Clinician Ady peterson COMPLETE BLOOD COUNT (CBC) 2020-09-13 11:34:00 Braden Olguin SEDIMENTATION RATE - 2020-09-05 13:59:00 Peg Whyte AUTOMATED BASIC METABOLIC PANEL (BMP) 2020-07-26 04:25:00 Veronica Dewitt y COMPLETE BLOOD COUNT (CBC) 2020-07-26 04:25:00 Galle, Veronica Costa RETICULOCYTES 2020-07-26 04:25:00 Veronica Dewitt BASIC METABOLIC PANEL (BMP) 2020-07-25 03:58:00 Veronica Dewitt y COMPLETE BLOOD COUNT (CBC) 2020-07-25 03:58:00 Esdras, Veronica Costa RETICULOCYTES 2020-07-25 03:58:00 Veronica Dewitt 529 2020-07-24 10:26:50 Veronica Dewitt [id number] 2020-07-24 08:04:30 Margaret Gomez BASIC METABOLIC PANEL (BMP) 2020-07-24 04:25:00 Veronica Dewitt y COMPLETE BLOOD COUNT (CBC) 2020-07-24 04:25:00 Esdras, Veronica Costa RETICULOCYTES 2020-07-24 04:25:00 Veronica Dewitt BASIC METABOLIC PANEL (BMP) 2020-07-23 07:42:00 Veronica Dewitt PREPARE RBC 2020-07-23 06:01:24 Topher Stearns PREPARE RBC 2020-07-23 06:00:27 Veronica Dewitt HEMOGLOBIN ELECTROPHORESIS 2020-07-23 03:39:00 Terell Souza XR PELVIS 1 TO 2 VIEWS 2020-07-22 18:35:20 Logan Castanon PORTABLE XR FEMUR LEFT 1 VIEW PORTABLE 2020-07-22 18:34:41 Logan Castanon HEMOGLOBIN AND HEMATOCRIT, 2020-07-22 18:10:00 Terell Souza BLOOD [id number] 2020-07-22 17:00:43 GaryBrayden [id number] 2020-07-22 16:53:09 GaryBrayden SHOCK PANEL, ARTERIAL 2020-07-22 15:32:56 Topher Stearns XR EXTREMITY OR PORTABLE 2020-07-22 15:32:00 Margaret Gomez CULTURE, MYCOBACTERIA, 2020-07-22 14:23:04 Jason Margaret penn NON-BLOOD CULTURE, FUNGUS 2020-07-22 14:23:04 Margaret Gomez CULTURE, TISSUE (AEROBIC AND 2020-07-22 14:23:04 Clint Gomez ANAEROBIC) W GRAM STAIN CULTURE, MYCOBACTERIA, 2020-07-22 14:21:00 Margaret Gomez ul NON-BLOOD CULTURE, FUNGUS 2020-07-22 14:21:00 Margaret Gomez CULTURE, TISSUE (AEROBIC AND 2020-07-22 14:21:00 Clint Gomez ANAEROBIC) W GRAM STAIN CULTURE, MYCOBACTERIA, 2020-07-22 14:20:00 Jason Margaret Adamson ul NON-BLOOD CULTURE, FUNGUS 2020-07-22 14:20:00 Margaret Gomez CULTURE, TISSUE (AEROBIC AND 2020-07-22 14:20:00 Clint Gomez ANAEROBIC) W GRAM STAIN SHOCK PANEL, ARTERIAL 2020-07-22 14:05:18 Topher Stearns [id number] 12:48:23 Topher Stearns REVISION OF INFECTED TOTAL 2020-07-22 12:44:00 Ernie Gomez HIP ARTHROPLASTY; BOTH COMPONENTS,WITH OR WITHOUT AUTOGRAFT OR ALLOGRAFT [id number] 2020-07-22 11:17:27 Veronica Dewitt [id number] 2020-07-22 10:56:08 Veronica Dewitt HEMOGLOBIN ELECTROPHORESIS 2020-07-22 03:29:00 Jorje Vallejo TYPE AND SCREEN 2020-07-22 03:29:00 Wendy Estrada COMPLETE BLOOD COUNT (CBC) 2020-07-22 03:29:00 Wendy Estrada CORONAVIRUS (COVID-19) 2020-07-21 16:15:00 Jacobo Turk SARS-COV-2 PCR PRE-PROCEDURE SCREEN COAGULATION SCREEN 2020-07-21 13:38:00 Jacobo Turk BASIC METABOLIC PANEL (BMP) 2020-07-21 13:38:00 Altaf Turk COMPLETE BLOOD COUNT (CBC) 2020-07-21 13:38:00 Salvatore Turk [id number] 2020-07-21 13:35:07 JavierMargaret lau [id number] 2020-07-21 13:15:44 JimmieMargaret stanton [id number] 00:00:00 Fausto Restrepo FLUID CELL COUNT 2020-07-16 10:36:00 Kaitlynn Martin XR LARGE JOINT ARTHROCENTESIS 2020-07-16 10:35:08 Kaitlynn Martin L ouanne INJECTION LEFT CULTURE, BODY FLUID (AEROBIC 2020-07-16 10:35:00 Kaitlynn Martni uanne AND ANAEROBIC) W GRAM STAIN SEDIMENTATION RATE - 2020-01-04 11:50:00 Yury Parra AUTOMATED COMPLETE BLOOD COUNT (CBC) 2020-01-04 11:50:00 Yury Parra b WITH DIFFERENTIAL C-REACTIVE PROTEIN (CRP), 2020-01-04 11:50:00 Yury Parra INFLAMMATORY LACTATE DEHYDROGENASE (LDH) 2019-12-01 04:28:00 Kaitlynn Brar COMPLETE BLOOD COUNT (CBC) 2019-12-01 04:28:00 Kaitlynn Brarree RETICULOCYTES 2019-12-01 04:28:00 Kaitlynn Brar BLOOD FILM- SPECIAL HEME 2019-12-01 04:28:00 Kaitlynn Brar PREPARE RBC (CROSSMATCH) - 2019-12-01 00:02:11 Aiden Wyatt Br ett NON-IRRADIATED [id number] 2019-11-30 19:25:42 Kaitlynn Brar [id number] 2019-11-30 15:35:58 Kaitlynn Brar COMPLETE BLOOD COUNT (CBC) 2019-11-30 05:15:00 Kaitlynn Brar esaree RETICULOCYTES 2019-11-30 05:15:00 Francheska Osborn [id number] 5133-01-30 03:00:40 Giuseppe Fine [id number] 2154-01-29 15:00:51 Giuseppe Fine 529 2019-11-29 14:34:11 Kaitlynn Brar COMPLETE BLOOD COUNT (CBC) 2019-11-29 05:25:00 Kaitlynn Brar [id number] 3111-01-29 03:00:45 Giuseppe Fine PREPARE CRYOPRECIPITATE 2019-11-28 18:00:33 Aiden Wyatt PREPARE RBC (CROSSMATCH) - 2019-11-28 18:00:29 Aiden Wyatt ett NON-IRRADIATED [id number] 15:01:14 Giuseppe Fine PREPARE RBC (CROSSMATCH) - 2019-11-28 06:02:07 Aiden Wyatt ett NON-IRRADIATED PREPARE FRESH FROZEN PLASMA 2019-11-28 06:01:43 Aiden Wyatt PREPARE RBC (CROSSMATCH) - 2019-11-28 06:01:42 Aiden Wyatt ett NON-IRRADIATED BASIC METABOLIC PANEL (BMP) 2019-11-28 04:12:00 Altfa Fine COMPLETE BLOOD COUNT (CBC) 2019-11-28 04:12:00 Everette Fine [id number] 3443-01-28 03:00:47 Giuseppe Fine XR PELVIS 1 TO 2 VIEWS 2019-11-27 22:13:49 Giuseppe Fine chard PORTABLE PREPARE FRESH FROZEN PLASMA 2019-11-27 20:41:26 Aiden Wyatt PREPARE FRESH FROZEN PLASMA 2019-11-27 20:41:25 Aiden Wyatt SHOCK PANEL, ARTERIAL 2019-11-27 19:07:21 Aiden Wyatt [id number] 2019-11-27 18:35:32 Jeff Warner [id number] 2019-11-27 18:33:41 Jaspal Guthrie [id number] 2019-11-27 18:13:38 Jeff Warner SHOCK PANEL, ARTERIAL 2019-11-27 18:04:05 Aiden Wyatt [id number] 2019-11-27 17:47:27 Jeff Warner [id number] 2019-11-27 17:39:40 Jeff Warner BLOOD GAS + 2019-11-27 17:36:00 Augustus Khan NA/K/ICA/GLUCOSE/LACTATE, ARTERIAL, OR (LO) PLATELET COUNT 2019-11-27 17:27:06 Aiden Wyatt FIBRINOGEN 2019-11-27 17:25:13 Aiden Wyatt MARIA GUADALUPE EXTEM 2019-11-27 17:24:28 Aiden Wyatt [id number] 2019-11-27 17:19:35 Jeff Warner [id number] 2019-11-27 17:09:59 Jaspal Guthrie [id number] 2019-11-27 16:59:22 Jeff Warner [id number] 2019-11-27 16:50:27 Jaspal Guthrie BLOOD GAS + 2019-11-27 16:46:00 Augustus Khan NA/K/ICA/GLUCOSE/LACTATE, ARTERIAL, OR (LO) [id number] 2019-11-27 16:17:48 Jeff Warner [id number] 2019-11-27 16:04:47 Jeff Warner SHOCK PANEL, ARTERIAL 2019-11-27 15:42:03 Aiden Wyatt MARIA GUADALUPE EXTEM 2019-11-27 15:42:03 Aiden Wyatt REVISION OF TOTAL HIP 2019-11-27 14:31:00 Augustus Khan r ARTHROPLASTY; ACETABULAR COMPONENT ONLY, WITH OR WITHOUT AUTOGRAFT OR ALLOGRAFT TYPE AND SCREEN 2019-11-27 12:44:00 Pepe Gates COMPLETE BLOOD COUNT (CBC) 2019-11-27 12:44:00 Aiden Wyatt ett BASIC METABOLIC PANEL (BMP) 2019-11-10 08:48:00 Asya Samano ndace ALBUMIN 2019-11-10 08:48:00 Asya Samano COMPLETE BLOOD COUNT (CBC) 2019-11-10 08:48:00 Asya Samano C-REACTIVE PROTEIN (CRP), 2019-08-31 12:11:00 Augustus Khan rthur INFLAMMATORY SEDIMENTATION RATE - 2019-08-31 12:11:00 Augustus Khan AUTOMATED XR LARGE JOINT ARTHROCENTESIS 2019-08-18 10:19:00 Ronak Khan am INJECTION LEFT CT PELVIS BONE ORTHO WITHOUT 2019-08-17 16:27:10 Ness Khan CONTRAST PROTOCOL OFFICE/OUTPATIENT VISIT, NEW 2019-07-05 08:45:00 NURSING FACILITY CARE, 2019-04-09 00:00:00 FOLLOW-UP RADIOLOGIC EXAM FEMUR 2 VIEWS 2018-12-13 00:00:00 XR, lumbar spine 2018-12-13 00:00:00 RADIOLOGIC EXAM FEMUR 2 VIEWS 2018-12-01 00:00:00 XR, pelvis 2018-12-01 00:00:00 [id number] 5077-10-24 00:00:00 Provider, On-File Total Hip Arthroplasty 2018-08-22 00:00:00 Total Hip Arthroplasty (Surg) 2018-08-22 00:00:00 Conversion of Previous Hip 2018-01-10 00:00:00 Surgery to Total Hip Arthroplasty Conversion of Previous Hip 2018-01-10 00:00:00 Surgery to Total Hip Arthroplasty (Surg) Conversion of Previous Hip 2017-12-01 00:00:00 Surgery to Total Hip Arthroplasty Conversion of Previous Hip 2017-12-01 00:00:00 Surgery to Total Hip Arthroplasty (Surg) Hip Surgery 2017-11-29 00:00:00 cholecystectomy 2011-11-01 00:00:00 blood transfusion vertebroplasty multi hip surgeries BRAIN ANEURYSM REPR COMPLX Results Test Description Test Time Test Comments Text Results Atomic Results Result Comments Complete Blood Count (CBC) 2020-09-13 12:13:00 Test Item Value Reference Range Comments WBC (White Blood Cell Count) (test code = 05905-6) 12.8 3.2 - 9.8 x10 9 /L Hemoglobin (test code = 718-7) 7.2 g/dL 13.7-17.3 Hematocrit (test code = 4544-3) 21.6 % 39-49 Platelets (test code = 74946-9) 258 150 - 45 0 x10 9 /L MCV (Mean Corpuscular Volume) (test code = 787-2) 92 fL 80-98 MCH (Mean Corpuscular Hemoglobin) (test code = 30.5 pg 2 6.5-34 785-6) MCHC (Mean Corpuscular Hemoglobin Concentration) 33.3 % 31.5-36.3 (test code = 786-4) RBC (Red Blood Cell Count) (test code = 07320-1) 2.36 4.37 - 5.74 x10 1 2/L RDW-CV (Red Cell Distribution Width) (test code = 21.0 % 11.5-14.5 08334-1) NRBC (Nucleated Red Blood Cell Count) (test code = 0.25 0 x10 9 00319-5) /L NRBC % (Nucleated Red Blood Cell %) (test code = 2.0 % 65033-1) MPV (Mean Platelet Volume) (test code = 32095832) 10.8 fL 7.2-11.7 Lab Interpretation (test code = 45922-2) Abnormal Sedimentation [id number] 14:55:00 Test Item Value Reference Range Comments Sedimentation Rate-Automated (test code = 50864-6) 20 <15 mm/hr Lab Interpretation (test code = 66676-5) Abnormal Basic Metabolic Panel (BMP)2020-07-26 05:54:00 Test Item Value Reference Range Comments Sodium (test code = 2951-2) 139 mmol/L 135-145 Potassium (test code = 2823-3) 4.1 mmol/L 3.5-5 Chloride (test code = 2075-0) 109 mmol/L 98-108 Carbon Dioxide (CO2) (test 26 mmol/L 21-30 code = 8-9) Urea Nitrogen (BUN) (test code 11 mg/dL 7-20 = 3094-0) Creatinine (test code = 0.8 mg/dL 0.6-1.3 2160-0) Glucose (test code = 2345-7) 101 mg/dL 70-140 Int erpretive Data: Above is the NONFASTING r eference range. Below are the FASTING reference ranges : NORMAL: 70-99 mg/dL PREDIABETES: 100 -125 mg/dL DIABETES: > 125 mg/dL Calcium (test code = 60948-1) 8.2 mg/dL 8.7-10.2 Anion Gap (test code = 4 mmol/L 3-12 10624-8) BUN/CREA Ratio (test code = 14 04-27 42811276) Glomerular Filtration Rate 137 mL/min/1.73sq m Inter pretive Ranges eGFR (eGFR) (test code = 29885-0) (C KD-EPI): eGFR: > 60 mL/min/1.73 s q m - Normal eGFR: 30 - 59 mL/min/1.73 sq m - Moderately Decre ased eGFR: 15 - 29 mL/min/1.73 sq m - Severely Decreased eGFR: < 15 mL/min/1.73 sq m - Kidney Failure Note: rossi GFR calculations do not apply in acute situations when GFR is changing rapidly or in patients on dial ysis. Lab Interpretation (test code Abnormal = 89944-1) Complete Blood Count (CBC)2020-07-26 05:10:00 Test Item Value Reference Range Comments WBC (White Blood Cell Count) (test code = 8.1 3.2 - 9.8 x10 9 73425-6) /L Hemoglobin (test code = 718-7) 7.9 g/dL 13.7-17.3 Hematocrit (test code = 4544-3) 24.2 % 39-49 Platelets (test code = 44844-0) 214 150 - 45 0 x10 9 /L MCV (Mean Corpuscular Volume) (test code = 97 fL 80-98 787-2) MCH (Mean Corpuscular Hemoglobin) (test code 31.6 pg 26. 5-34 = 785-6) MCHC (Mean Corpuscular Hemoglobin 32.6 % 31.5-36.3 Concentration) (test code = 786-4) RBC (Red Blood Cell Count) (test code = 2.50 4.37 - 5.74 x10 1 68794-2) 2/L RDW-CV (Red Cell Distribution Width) (test 17.4 % 11.5- 14.5 code = 50284-4) NRBC (Nucleated Red Blood Cell Count) (test 0.05 0 x10 9 code = 51079-7) /L NRBC % (Nucleated Red Blood Cell %) (test 0.6 % code = 15997-6) MPV (Mean Platelet Volume) (test code = 10.4 fL 7.2-11.7 [id number]) Lab Interpretation (test code = 25537-1) Abnormal [id number] 05:10:00 Test Item Value Reference Range Comments Reticulocyte % (test code = 4679-7) 2.97 % 0.7-2 Reticulocyte Count /L (test code = 42221-7) 74.3 28.0 - 134.0 x10^9/L Immature Reticulocyte Fraction (test code = 23.6 % 3.1- 16 41094-9) Lab Interpretation (test code = 10552-0) Abnormal Hemoglobin Bpudihhqhkkjyko2117-93-36 13:05:00 Test Item Value Reference Range Comments Hemoglobin Electrophoresis Interpretation (test code = 15027578) Hb A% (test code = 94779362) 69.3 % 96.8-97.8 Hb F% (test code = 4576-5) 2.1 % Hb S% (test code = 28098055) 25.8 % Hb A2% (test code = 54880261) 2.8 % 2.2-3.2 Lab Interpretation (test code = 24751-4) Abnormal Basic Metabolic Panel (BMP)2020-07-25 05:12:00 Test Item Value Reference Range Comments Sodium (test code = 2951-2) 136 mmol/L 135-145 Potassium (test code = 2823-3) 4.0 mmol/L 3.5-5 Chloride (test code = 2075-0) 108 mmol/L 98-108 Carbon Dioxide (CO2) (test 25 mmol/L code = 8-9) Urea Nitrogen (BUN) (test code 12 mg/dL - = 3094-0) Creatinine (test code = 0.9 mg/dL 0.6-1.3 2160-0) Glucose (test code = 2345-7) 110 mg/dL 70-140 Int erpretive Data: Above is the NONFASTING r eference range. Below are the FASTING reference ranges : NORMAL: 70-99 mg/dL PREDIABETES: 100 -125 mg/dL DIABETES: > 125 mg/dL Calcium (test code = 95850-9) 8.1 mg/dL 8.7-10.2 Anion Gap (test code = 3 mmol/L 3-12 61055-9) BUN/CREA Ratio (test code = 13 04-27 10288421) Glomerular Filtration Rate 131 mL/min/1.73sq m Inter pretive Ranges eGFR (eGFR) (test code = 97351-6) (C KD-EPI): eGFR: > 60 mL/min/1.73 s q m - Normal eGFR: 30 - 59 mL/min/1.73 sq m - Moderately Decre ased eGFR: 15 - 29 mL/min/1.73 sq m - Severely Decreased eGFR: < 15 mL/min/1.73 sq m - Kidney Failure Note: Th rossi GFR calculations do not apply in acute situations when GFR is changing rapidly or in patients on dial ysis. Lab Interpretation (test code Abnormal = 42341-3) Complete Blood Count (CBC)2020-07-25 04:55:00 Test Item Value Reference Range Comments WBC (White Blood Cell Count) (test code = 9.7 3.2 - 9.8 x10 9 96827-0) /L Hemoglobin (test code = 718-7) 7.5 g/dL 13.7-17.3 Hematocrit (test code = 4544-3) 23.5 % 39-49 Platelets (test code = 35266-6) 195 150 - 45 0 x10 9 /L MCV (Mean Corpuscular Volume) (test code = 97 fL 80-98 787-2) MCH (Mean Corpuscular Hemoglobin) (test code 31.0 pg 26. 5-34 = 785-6) MCHC (Mean Corpuscular Hemoglobin 31.9 % 31.5-36.3 Concentration) (test code = 786-4) RBC (Red Blood Cell Count) (test code = 2.42 4.37 - 5.74 x10 1 92659-4) 2/L RDW-CV (Red Cell Distribution Width) (test 17.6 % 11.5- 14.5 code = 27577-0) NRBC (Nucleated Red Blood Cell Count) (test 0.05 0 x10 9 code = 73932-3) /L NRBC % (Nucleated Red Blood Cell %) (test 0.5 % code = 74632-6) MPV (Mean Platelet Volume) (test code = 10.3 fL 7.2-11.7 97215455) Lab Interpretation (test code = 96428-1) Abnormal Qtdxbdwkgeygc6695-87-55 04:55:00 Test Item Value Reference Range Comments Reticulocyte % (test code = 4679-7) 2.89 % 0.7-2 Reticulocyte Count /L (test code = 29338-5) 69.9 28.0 - 134.0 x10^9/L Immature Reticulocyte Fraction (test code = 21.8 % 3.1- 16 72478-6) Lab Interpretation (test code = 51599-8) Abnormal Tblbnxkioyhrc9572-36-14 10:00:00 Test Item Value Reference Range Comments Reticulocyte % (test code = 4679-7) 2.41 % 0.7-2 Reticulocyte Count /L (test code = 32734-6) 61.0 28.0 - 134.0 x10^9/L Immature Reticulocyte Fraction (test code = 27.9 % 3.1- 16 41053-1) Lab Interpretation (test code = 58730-0) Abnormal Basic Metabolic Panel (BMP)2020-07-24 05:16:00 Test Item Value Reference Range Comments Sodium (test code = 2951-2) 139 mmol/L 135-145 Potassium (test code = 2823-3) 4.2 mmol/L 3.5-5 Chloride (test code = 2075-0) 111 mmol/L 98-108 Carbon Dioxide (CO2) (test 24 mmol/L - code = 8-9) Urea Nitrogen (BUN) (test code 14 mg/dL 7-20 = 3094-0) Creatinine (test code = 0.9 mg/dL 0.6-1.3 2160-0) Glucose (test code = 2345-7) 118 mg/dL 70-140 Int erpretive Data: Above is the NONFASTING r eference range. Below are the FASTING reference ranges : NORMAL: 70-99 mg/dL PREDIABETES: 100 -125 mg/dL DIABETES: > 125 mg/dL Calcium (test code = 00778-5) 7.8 mg/dL 8.7-10.2 Anion Gap (test code = 4 mmol/L 3-12 81107-3) BUN/CREA Ratio (test code = 16 6-27 42410607) Glomerular Filtration Rate 131 mL/min/1.73sq m Inter pretive Ranges eGFR (eGFR) (test code = 62720-0) (C KD-EPI): eGFR: > 60 mL/min/1.73 s q m - Normal eGFR: 30 - 59 mL/min/1.73 sq m - Moderately Decre ased eGFR: 15 - 29 mL/min/1.73 sq m - Severely Decreased eGFR: < 15 mL/min/1.73 sq m - Kidney Failure Note: Th rossi GFR calculations do not apply in acute situations when GFR is changing rapidly or in patients on dial ysis. Lab Interpretation (test code Abnormal = 55362-8) Complete Blood Count (CBC)2020-07-24 05:15:00 Test Item Value Reference Range Comments WBC (White Blood Cell Count) 10.6 3.2 - 9.8 x 10 9 (test code = 64293-9) /L Hemoglobin (test code = 7.7 g/dL 13.7-17.3 718-7) Hematocrit (test code = 23.8 % 39-49 4544-3) Platelets (test code = 194 150 - 450 x10 9 89176-1) /L MCV (Mean Corpuscular Volume) 93 fL 80-98 (test code = 787-2) MCH (Mean Corpuscular 30.2 pg 26.5-34 Hemoglobin) (test code = 785-6) MCHC (Mean Corpuscular 32.4 % 31.5-36.3 Hemoglobin Concentration) (test code = 786-4) RBC (Red Blood Cell Count) 2.55 4.37 - 5.74 x 10 1 (test code = 28887-7) 2/L RDW-CV (Red Cell Distribution 18.1 % 11.5-14.5 Width) (test code = 74320-4) NRBC (Nucleated Red Blood 0.06 0 x10 9 Cell Count) (test code = /L 02805-4) NRBC % (Nucleated Red Blood 0.6 % Cell %) (test code = 93962-8) MPV (Mean Platelet Volume) 10.0 fL 7.2-11.7 (test code = 47184339) Slide Review/Morphology (test Yes Bl ood film reviewed, code = 76529870) instrument coun ts confirmed,Macroc ytes,Poly chromasia,Target cells,Anisocytos is, Lab Interpretation (test code Abnormal = 06339-7) Hemoglobin Inmtmoldaltmttn1076-25-65 14:34:00 Test Item Value Reference Range Comments Hemoglobin Electrophoresis Interpretation (test code = 62926218) Hb A% (test code = 67462421) 39.6 % 96.8-97.8 Hb F% (test code = 4576-5) 5.0 % Hb S% (test code = 13870899) 52.2 % Hb A2% (test code = 83546844) 3.2 % 2.2-3.2 Lab Interpretation (test code = 66879-5) Abnormal Basic Metabolic Panel (BMP)2020-07-23 08:46:00 Test Item Value Reference Range Comments Sodium (test code = 2951-2) 139 mmol/L 135-145 Potassium (test code = 2823-3) 4.9 mmol/L 3.5-5 Chloride (test code = 2075-0) 110 mmol/L 98-108 Carbon Dioxide (CO2) (test 23 mmol/L 21-30 code = 8-9) Urea Nitrogen (BUN) (test code 13 mg/dL 7-20 = 3094-0) Creatinine (test code = 1.0 mg/dL 0.6-1.3 2160-0) Glucose (test code = 2345-7) 91 mg/dL 70-140 Int erpretive Data: Above is the NONFASTING r eference range. Below are the FASTING reference ranges : NORMAL: 70-99 mg/dL PREDIABETES: 100 -125 mg/dL DIABETES: > 125 mg/dL Calcium (test code = 47666-6) 8.3 mg/dL 8.7-10.2 Anion Gap (test code = 6 mmol/L 3-12 81137-2) BUN/CREA Ratio (test code = 13 6-27 02791725) Glomerular Filtration Rate 115 mL/min/1.73sq m Inter pretive Ranges eGFR (eGFR) (test code = 10789-3) (C KD-EPI): eGFR: > 60 mL/min/1.73 s q m - Normal eGFR: 30 - 59 mL/min/1.73 sq m - Moderately Decre ased eGFR: 15 - 29 mL/min/1.73 sq m - Severely Decreased eGFR: < 15 mL/min/1.73 sq m - Kidney Failure Note: Th rossi GFR calculations do not apply in acute situations when GFR is changing rapidly or in patients on dial ysis. Lab Interpretation (test code Abnormal = 80936-9) X-ray femur left 1 view lzzzenai1638-18-98 08:35:42XR FEMUR LEFT 1 VIEW PORTABLE, XR PELVIS 1 TO 2 VIEWS PORTABLENumber of views: 1. Indication: s/p e xplant and spacer L hip, known intraop fracture, T84.52XAInfection and inflammatory reaction due to internal left hip prosthesis,initial encounter ([facility]). 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 There is sometrace gennaro ency along the left-sided acetabular component and femoral shaftcomponent. There is cement extendingthrough the medial cortex of theproximal femur diaphysis. The proximal femur has a fracture which isgrossly unchanged from OR radiograph July 22, 2020. This is the firstpostop femur radiograph will serve as baseline. Postsurgical changes of total right hip arthroplasty are partiallyvisualized. There is prominent heterotopic ossification at the proximalright femur.Surgical drain overlies left hipmultiple antibody beads.Postsurgical change including left hip subcutaneous gas and edema. Electronically Signed by: Chidi Dean MD, [facility] Signed on: 07/23/2020 8:35 AMInterface, Rad Results In - 07/23/2020 8:36 AM EDTXR FEMUR LEFT 1 VIEW PORTABLE, XR PELVIS 1 TO 2 VIEWS PORTABLE Number of views: 1. Indication: s/p explant and spacer L hip, known intraop fracture, T84.52XA Infection and inflammatory reaction due to internal left hip prosthesis, initial encounter ([facility]). Comparison: July 22, 2020 radiographs. 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 There is some trace lucency along the left-sided acetabular component and femoral shaft component. There is cement extending through the medial cortex of the proximal femur diaphysis. The proximal femur has a fracture which is grossly unchanged from OR radiograph July. This is the first postop femur radiograph will serve as baseline. Postsurgical changes of total right hip arthroplasty are partially visualized. There is prominent heterotopic ossification at theproximal right femur. Surgical drain overlies left hip multiple antibody beads. Postsurgical change including left hip subcutaneous gas and edema. Electronically Signed by: Chidi Dean MD, [facility] Electronically Signed on: 07/23/2020 8:35 AMX-ray pelvis 1 to 2 views eyipyrfk3435-94-71 08:35:42XR FEMUR LEFT 1 VIEW PORTABLE, XR PELVIS 1 TO 2 VIEWS PORTABLENumber of views: 1. Indication: s/p explant and spacer L hip, known intraop fracture, T84.52XAInfection and inflammatory reaction due to internal left hip prosthesis,initial encounter ([facility]). 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 There is sometrace lucency along the left-sided acetabular component and femoral shaftcomponent. There is cement extendingthrough the medial cortex of theproximal femur diaphysis. The proximal femur has a fracture which isgrossly unchanged from OR radiograph July 22, 2020. This is the firstpostop femur radiograph will serve as baseline. Postsurgical changes of total right hip arthroplasty are partiallyvisualized. There is prominent heterotopic ossification at the proximalright femur.Surgical drain overlies left hipmultiple antibody beads.Postsurgical change including left hip subcutaneous gas and edema. Electronically Signed by: Chidi Dean MD, [facility] Signed on: 07/23/2020 8:35 AMInterface, Rad Results In - 07/23/2020 8:36 AM EDTXR FEMUR LEFT 1 VIEW PORTABLE, XR PELVIS 1 TO 2 VIEWS P ORTABLE Number of views: 1. Indication: s/p explant and spacer L hip, known intraop fracture, T84.52XA Infection and inflammatory reaction due to internal left hip prosthesis, initial encounter ([facility]). Comparison: July 22, 2020 radiographs. 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 There is some trace lucency along the left-sided acetabular component and femoral shaft component. There is cement extending through the medial cortex of the proximal femur diaphysis. The proximal femur has a fracture which is grossly unchanged from OR radiograph July. This is the first postop femur radiograph will serve as baseline. Postsurgical changes of total right hip arthroplasty are partially visualized. There is prominent heterotopic ossification at theproximal right femur. Surgical drain overlies left hip multiple antibody beads. Postsurgical change including left hip subcutaneous gas and edema. Electronically Signed by: Chidi Dean MD, [facility] Electronically Signed on: 07/23/2020 8:35 AMPrepare RBC: 2 Units 2020-07-23 06:01:24 Test Item Value Reference Range Comments Cross Match Result (test code = 7813848534) Compatible Unit Blood Type (test code = 3526915556) O Pos Unit Number (test code = 4822079175) [id number] Blood Expiration Date (test code = 352929404370 4570180225) Status Information (test code = 1011253112) Transfused Product Identification (test code = Red Blood Cells 4102181057) Product Code (test code = 1759650713) [id number] Coded Unit Blood Type (test code = 5100 9318798043) Prepare RBC: 2 [id number] 06:00:27 Test Item Value Reference Range Comments Cross Match Result (test code = 0242388830) Compatible Unit Blood Type (test code = 3738461243) A Neg Unit Number (test code = 2626197300) [id number] Blood Expiration Date (test code = 255207680182 0019069731) Status Information (test code = 2797283389) Transfused Product Identification (test code = Red Blood Cells 7406889147) Product Code (test code = 3179994836) [id number] Coded Unit Blood Type (test code = 600 8674815202) Hemoglobin And Hematocrit, [id number] 18:34:00 Test Item Value Reference Range Comments Hemoglobin (test code = 718-7) 9.4 g/dL 13.7-17.3 Hematocrit (test code = 4544-3) 28.7 % 39-49 Lab Interpretation (test code = 33122-0) Abnormal Shock Panel, [id number] 15:47:00 Test Item Value Reference Range Comments Patient Temperature, Arterial 37.0 C (test code = 22673056) FIO2, Arterial (test code = FIO2 not provided. 2707-6) PH, Arterial (test code = 7.39 7.35-7.45 2743-1) PCO2, Arterial (test code = 40 35 - 45 mmHg 2019-06) PO2, Arterial (test code = 114 75 - 100 mmHg 2702-7) Base Excess, Arterial (test -1 mmol/L -3-3 code = 1925-7) Bicarbonate, Arterial (test 24 mmol/L 20-28 code = 1960-4) Total CO2, Arterial (test code 25 mmol/L 21-31 = 2025-3) Hemoglobin, Arterial (test 9.3 g/dL 13.7-17.3 code = 49975-9) Hematocrit, Arterial (test 28.0 % 39-49 code = 53888-6) % O2 Hemoglobin, Arterial 96.6 % 94-99 (test code = 2714-4) % CO Hemoglobin, Arterial 2.4 % <=2.0 Interp retive Data (test code = 2029-) Interpretiv e Data (%) Non-S mokers: 0 -2.0 Smoke rs: 1-2 packs/day 0-5 .0 Smokers: 3-4 packs/day 0-9 .0 % Methemoglobin, Arterial 0.5 % 0.4-1.5 (test code = 2615-3) Volume % O2, Arterial (test 12.8 % 15-24 code = 02391973) Sodium, Arterial (test code = 139 mmol/L 135-145 30437-8) Potassium, Arterial (test code 4.2 mmol/L 3.5-5 = 17340-1) Glucose, Nonfasting, Arterial 136 mg/dL 70-140 (test code = 83255-1) Calcium, Ionized (test code = 1.19 mmol/L 1.15-1.32 54902-2) Lactate, Whole Blood (test 1.5 mmol/L 0.6-1.8 code = 14773-6) Lab Interpretation (test code Abnormal = 49490-4) X-ray extremity OR [id number] 15:40:10This order has been auto- finalized. Please see additional clinical documentation for result report.Shock Panel, [id number] 14:21:00 Test Item Value Reference Range Comments Patient Temperature, Arterial 37.0 C (test code = 20340878) FIO2, Arterial (test code = No F io2 provided 2707-6) PH, Arterial (test code = 7.42 7.35-7.45 2743-1) PCO2, Arterial (test code = 41 35 - 45 mmHg 2019-06) PO2, Arterial (test code = 169 75 - 100 mmHg 2702-7) Base Excess, Arterial (test 2 mmol/L -3-3 code = 1925-7) Bicarbonate, Arterial (test 27 mmol/L 20-28 code = 1960-4) Total CO2, Arterial (test code 28 mmol/L 21-31 = 2025-3) Hemoglobin, Arterial (test 10.2 g/dL 13.7-17.3 code = 14742-9) Hematocrit, Arterial (test 31.0 % 39-49 code = 43668-1) % O2 Hemoglobin, Arterial 96.0 % 94-99 (test code = 2714-4) % CO Hemoglobin, Arterial 2.3 % <=2.0 Interp retive Data (test code = 2030-5) Interpretiv e Data (%) Non-S mokers: 0 -2.0 Smoke rs: 1-2 packs/day 0-5 .0 Smokers: 3-4 packs/day 0-9 .0 % Methemoglobin, Arterial 1.0 % 0.4-1.5 (test code = 2615-3) Volume % O2, Arterial (test 14.1 % 15-24 code = 98193800) Sodium, Arterial (test code = 140 mmol/L 135-145 82404-3) Potassium, Arterial (test code 4.4 mmol/L 3.5-5 = 60013-0) Glucose, Nonfasting, Arterial 80 mg/dL 70-140 (test code = 85136-8) Calcium, Ionized (test code = 1.18 mmol/L 1.15-1.32 37182-6) Lactate, Whole Blood (test 1.0 mmol/L 0.6-1.8 code = 16061-5) Lab Interpretation (test code Abnormal = 64261-9) US regional anesthesia pmwobg1715-30-69 12:48:23Procedure result and any important imaging findings are described in associated clinical documentation. To view images from this procedure, please click the image viewer link.Interface, External Ris In- 07/22/2020 2:01 PM EDTProcedure result and any important imaging findings are described in associated clinical documentation. To view images from this procedure, please click the image viewer link.Type And [id number] 04:48:00 Test Item Value Reference Range Comments ABO RH TYPE (test code = 882-1) A Positive Antibody Screen (test code = 890-4) Negative Specimen Outdate (test code = 60080008) 07-25-2020 23:59 Performing Lab (test code = 84994876) [facility] Complete Blood Count (CBC)2020-07-22 04:04:00 Test Item Value Reference Range Comments WBC (White Blood Cell Count) (test code = 8.8 3.2 - 9.8 x10 9 50498-5) /L Hemoglobin (test code = 718-7) 8.2 g/dL 13.7-17.3 Hematocrit (test code = 4544-3) 25.5 % 39-49 Platelets (test code = 27450-1) 301 150 - 45 0 x10 9 /L MCV (Mean Corpuscular Volume) (test code = 100 fL 80-98 787-2) MCH (Mean Corpuscular Hemoglobin) (test code 32.3 pg 26. 5-34 = 785-6) MCHC (Mean Corpuscular Hemoglobin 32.2 % 31.5-36.3 Concentration) (test code = 786-4) RBC (Red Blood Cell Count) (test code = 2.54 4.37 - 5.74 x10 1 78644-8) 2/L RDW-CV (Red Cell Distribution Width) (test 15.3 % 11.5- 14.5 code = 52436-4) NRBC (Nucleated Red Blood Cell Count) (test 0.05 0 x10 9 code = 74049-5) /L NRBC % (Nucleated Red Blood Cell %) (test 0.6 % code = 59297-5) MPV (Mean Platelet Volume) (test code = 9.8 fL 7.2-11.7 14547152) Lab Interpretation (test code = 24164-8) Abnormal Coronavirus (COVID-19) SARS-CoV-2 PCR Preoperative [id number] 03:11:00 Test Item Value Reference Range Comments Coronavirus (COVID-19) SARS-CoV-2 PCR (test Not Detected code = 65375-1) RACHEL (test code = RACHEL) Lab Interpretation (test code = 31800-0) Normal Coagulation [id number] 14:12:00 Test Item Value Reference Range Comments Prothrombin Time (test code = 16.0 9.5 - 13.1 sec 5902-2) Prothrombin INR (test code = 1.4 0.9-1.1 6301-6) Act Partial Thromboplastin Time 36.1 26.8 - 37.1 sec (test code = 61919-7) Fibrinogen (test code = 3255-7) 264 mg/dL 213-435 PT/INR Reference Ranges: DVT/PE/PVD = INR 2.0 - 3.0 Mechanical Heart Valve = INR 2.5 - 3.5 NOTE: The INR is not a PT Ratio a nd is valid only for Coumadi n patients APTT Therapeutic Range (Heparin) = 65-9 5 seconds Note: The therap eutic range for Heparin has been determined using ex-vivo whole blood samp les and therapeutic Hepa rin level of 0.30-0.70 anti-f actor Xa units. Fibrinoge n The direct thrombin inhibit ors (argatroban, biv alirudin, and lepirudin) h ave been reported to inte rfere with the clot-based f ibrinogen assay used in [facility], resulting in dec reased plasma fibrinoge n levels. This occurs most prominently with argatroban, followed by bivalirudin, and then lepirudin. Lab Interpretation (test code = Abnormal 31526-6) Basic Metabolic Panel (BMP)2020-07-21 14:08:00 Test Item Value Reference Range Comments Sodium (test code = 2951-2) 136 mmol/L 135-145 Potassium (test code = 4.5 mmol/L 3.5-5 2823-3) Chloride (test code = 103 mmol/L 98-108 2075-0) Carbon Dioxide (CO2) (test 23 mmol/L 21-30 code = 2028-9) Urea Nitrogen (BUN) (test 12 mg/dL - code = 3094-0) Creatinine (test code = 0.9 mg/dL 0.6-1.3 2160-0) Glucose (test code = 2345-7) 94 mg/dL 70-140 Int erpretive Data: Above is the NONFASTING r eference range. Below are the FASTING reference ranges : NORMAL: 70-99 mg/dL PREDIABETES: 100-125 mg/dL DI ABETES: > 125 mg/dL Calcium (test code = 9.2 mg/dL 8.7-10.2 41090-8) Anion Gap (test code = 10 mmol/L -12 52753-4) BUN/CREA Ratio (test code = 13 6-27 89458530) Glomerular Filtration Rate 131 mL/min/1.73sq m Inter pretive Ranges eGFR (eGFR) (test code = (CKD-EPI): eGFR: > 60 51239-7) mL/min/1.73 sq m - Normal eGFR: 30 - 59 mL/min/1.73 sq m - Moderately Decreased eGFR: 15 - 29 mL/min/1.73 s q m - Severely Decreased eGFR: < 15 mL/min/1.73 sq m - Kidney Failure Note: Th rossi GFR calculations do not apply in acute situations when GFR is changing rapidly or in patients on dial ysis. Complete Blood Count (CBC)2020-07-21 13:52:00 Test Item Value Reference Range Comments WBC (White Blood Cell Count) (test code = 9.1 3.2 - 9.8 x10 9 14576-3) /L Hemoglobin (test code = 718-7) 9.7 g/dL 13.7-17.3 Hematocrit (test code = 4544-3) 28.7 % 39-49 Platelets (test code = 36876-7) 306 150 - 45 0 x10 9 /L MCV (Mean Corpuscular Volume) (test code = 101 fL 80-98 787-2) MCH (Mean Corpuscular Hemoglobin) (test code 34.2 pg 26. 5-34 = 785-6) MCHC (Mean Corpuscular Hemoglobin 33.8 % 31.5-36.3 Concentration) (test code = 786-4) RBC (Red Blood Cell Count) (test code = 2.84 4.37 - 5.74 x10 1 24553-0) 2/L RDW-CV (Red Cell Distribution Width) (test 15.8 % 11.5- 14.5 code = 53432-7) NRBC (Nucleated Red Blood Cell Count) (test 0.05 0 x10 9 code = 24504-9) /L NRBC % (Nucleated Red Blood Cell %) (test 0.5 % code = 47089-6) MPV (Mean Platelet Volume) (test code = 9.7 fL 7.2-11.7 05165017) Lab Interpretation (test code = 29665-3) Abnormal CT pelvis reference [id number] 01:49:39This order has been auto-finalized. Please see additional clinical documentation for result report.CT pelvis reference [id number] 01:49:39This order has been auto-finalized. Please see additional clinical documentation for result report.X-ray large arthrocentesis injection [id number] 17:48:20Procedure: Fluoroscopic-guided left hip joint aspiration. Clinical history and indication/ pre-procedure diagnosis: rule outpersistent PJI, see associated infection labs, T84.52XD Infection andinflammatory reaction due to internal left hip prosthesis, subsequentencounter Comparison: Left hip radiographs June 27, 2020.. Radiologist(s): Avery Pereyra MD; Chidi Dean MD Consent: The risks, benefits and alternatives of image-guided jointaspiration were discussed in detail, including risks of bleeding, infectionand pain. All questions answered and verbal and written informed consentwas obtained. Technique and Findings:Preprocedure planning fluoroscopic image of the left hip demonstratesstatus post revision left total hip arthroplasty. The patient was placed supine on the fluoroscopic table. A timeoutprocedure was performed prior to Lidocaine administration. The skin overthe left hip was prepped and draped in standard sterile fashion. Localanesthetic was provided in the skin and subcutaneous tissues with 2 mL of1% Lidocaine and sodium bicarbonate solution. Using intermittent fluoroscopic guidance, an 18 gauge needle was placedinto the left hip joint. Intra-articular position was confirmed with metalon metal sensation. Volume aspirated: 3 mL's of sanguineous fluid. This fluid was sent topathology in cell count, anaerobic, and fresh specimen. The elapsed time for this fluoroscopic procedure was 12 seconds. The needle was removed and hemostasis was achieved. There were no immediatecomplications. Estimated blood loss: Minimal. Impression/post-procedure diagnosis: Successful fluorosco pically guided left hip joint aspiration. Specimenswere sent to lab for analysis. Electronically Reviewed by: Avery Pereyra MD, [facility] Reviewed on: 07/16/2020 11:40 AM I have reviewed the images and concur with the above findings. Electronically Signed by: Chidi Dean MD,[facility] Signed on: 07/16/2020 5:48 PMInterface, Rad Results In - 07/16/2020 5:49 PM EDTProcedure: Fluoroscopic- guided left hip joint aspiration. Clinical history and indication/ pre-procedure diagnosis: rule out persistent PJI, see associated infection labs, T84.52XD Infection and inflammatory reaction due to internal left hip prosthesis, subsequent encounter Comparison: Left hip radiographs June 27, 2020.. Radiologist(s): Avery Pereyra MD; Chidi Dean MD Consent: The risks, benefits and alternatives of image-guided joint aspiration were discussed in detail, including risks of bleeding, infection and pain. All questions answered and verbal and written informed consent was obtained. Technique and Findings: Preprocedure planning fluoroscopic image of the left hip demonstrates status post revision left total hip arthroplasty. The patient was placed supine on the fluoroscopic table. A timeout procedure was performed prior to Lidocaine administration. The skin over the left hip was prepped and draped in standard sterile fashion. Local anesthetic was provided in the skin and subcutaneous tissues with 2 mL of 1% Lidocaine and sodium bicarbonate solution. Using intermittentfluoroscopic guidance, an 18 gauge needle was placed into the left hip joint. Intra-articular position was confirmed with metal on metal sensation. Volume aspirated: 3 mL's of sanguineous fluid. This fluid was sent to pathology in cell count, anaerobic, and fresh specimen. The elapsed time for this flu oroscopic procedure was 12 seconds. The needle was removed and hemostasis was achieved. There were no immediate complications. Estimated blood loss: Minimal. Impression/post-procedure diagnosis: Successful fluoroscopically guided left hip joint aspiration. Specimens were sent to lab for analysis. Electronically Reviewed by: Avery Pereyra MD, [facility] Electronically Reviewed on: 07/16/2020 11:40 AM I have reviewed the images and concur with the above findings. Electronically Signed by: Chidi Dean MD, [facility] Electronically Signed on: 07/16/2020 5:48 PMFluid Cell [id number] 13:50:00 Test Item Value Reference Range Comments Body Fluid, Color (test code = 6824-7) Red Hip fluid Body Fluid, Clarity (test code = 63569-6) Turbid Fluid Volume (test code = 66944-9) <0.5 mL Nucleated Cells/Body Fluid (test code = Clotted-- no count 22425-6) Neutrophils, Body Fluid (test code = 76 % 80776-5) Lymphocytes, Body Fluid (test code = 11 % 39184-9) Monocytes, Body Fluid (test code = 73486-9) 2 % Eosinophils, Body Fluid (test code = 1 % 53605139) Basophils, Body Fluid (test code = 1 % 93153264) Nucleated Red Blood Cells (NRBCs), Body 3 % Fluid (test code = 79915195) Smudge Cells, Body Fluid (test code = 6 % 20514615) RACHEL (test code = RACHEL) Zbfjsou5265-32-47 14:43:10 Test Item Value Reference Range Comments Glucose (test code = Glucose) 155.0000 mg/dL 60.0000-115.0000 BUN (test code = BUN) 23.0000 mg/dL 5.0000-26.0000 Creatinine (test code = Creatinine) 1.1200 mg/dL 0.5000-1.500 0 Cr Clearance (Est) (test code = Cr 69.6200 85.0000-125.0 000 Clearance (Est)) Sodium (test code = Sodium) 139.4000 mmol/L 135.0000-148.0000 Potassium (test code = Potassium) 5.0000 mmol/L 3.5000-5.5000 Chloride (test code = Chloride) 108.0000 mmol/L 96.0000-109.0000 CO2 (test code = CO2) 25.0000 mmol/L 21.0000-32.0000 Calcium (test code = Calcium) 9.0000 mg/dL 8.5000-10.6000 Protein, Total (test code = Protein, 9.1000 g/dL 6.0000-8.50 00 Total) Albumin (test code = Albumin) 3.8000 g/dL 3.5000-5.5000 Bilirubin, Total (test code = Bilirubin, 1.7000 mg/dL 0.1000- 1.2000 Total) Alkaline Phosphatase (test code = Alkaline 100.0000 40.00 00-150.0000 Phosphatase) AST (SGOT) (test code = AST (SGOT)) 79.0000 0.0000-45.00 00 ALT (SGPT) (test code = ALT (SGPT)) 48.0000 0.0000-50.00 00 C-Reactive Zwdyeae9730-19-27 14:41:35 Test Item Value Reference Range Comments C-Reactive Protein (test code = C-Reactive 31.9000 mg/L 0.000 0-5.0000 Protein) [id number] 14:41:35 Test Item Value Reference Range Comments WBC (test code = WBC) 10.4000 4.0000-10.5000 HGB (test code = HGB) 6.8000 g/dL 12.5000-17.0000 HCT (test code = HCT) 20.0000 % 36.0000-50.0000 MCV (test code = MCV) 106.0000 fL 80.0000-98.0000 Platelet Count (test code = Platelet Count) 225.0000 140. 0000-415.0000 Sed Rate (test code = Sed Rate) 117.0000 0.0000-30.0000 Hipqcovu1071-16-23 15:30:00 Test Item Value Reference Range Comments Ferritin (test code = Ferritin) 7622.0000 ng/mL 30.0000-400.0000 Creatinine (test code = Creatinine) 0.8800 mg/dL 0.7600-1.270 0 Cr Clearance (Est) (test code = Cr 88.6100 85.0000-125.0 000 Clearance (Est)) Glucose (test code = Glucose) 84.0000 mg/dL 65.0000-99.0000 BUN (test code = BUN) 12.0000 mg/dL 6.0000-20.0000 eGFR Rtn-Scwseya-Rlpqmbcd (test code = 114.0000 eGFR Thv-Htlkjcu-Dhigshiz) eGFR -Kittitian (test code = eGFR 131.0000 -Kittitian) BUN/Creat Ratio (test code = BUN/Creat 14.0000 9.0000-20 .0000 Ratio) Sodium (test code = Sodium) 140.0000 mmol/L 134.0000-144.0000 Potassium (test code = Potassium) 4.8000 mmol/L 3.5000-5.2000 Chloride (test code = Chloride) 101.0000 mmol/L 96.0000-106.0000 CO2 (test code = CO2) 20.0000 mmol/L 20.0000-29.0000 Calcium (test code = Calcium) 9.1000 mg/dL 8.7000-10.2000 Protein, Total (test code = Protein, 8.4000 g/dL 6.0000-8.50 00 Total) Albumin (test code = Albumin) 3.5000 g/dL 4.0000-5.0000 Globulin (test code = Globulin) 4.9000 g/dL 1.5000-4.5000 A/G Ratio (test code = A/G Ratio) 0.7000 1.2000-2.2000 Bilirubin, Total (test code = Bilirubin, 0.8000 mg/dL 0.0000- 1.2000 Total) Alkaline Phosphatase (test code = Alkaline 120.0000 39.00 00-117.0000 Phosphatase) AST (SGOT) (test code = AST (SGOT)) 69.0000 0.0000-40.00 00 ALT (SGPT) (test code = ALT (SGPT)) 12.0000 0.0000-44.00 00 Written Vltvtzgihoeun4646-17-41 15:30:00 Test Item Value Reference Range Comments Written Authorization (test Comment Written Authorization code = Written Authorization) Received. Authorization received from regis cleveland 01-11-2020 Logged by Анна Lou [id number] 13:54:00 Test Item Value Reference Range Comments WBC (test code = WBC) 14.6000 4.0000-10.0000 Lymphocytes % (test code = Lymphocytes %) 21.4000 % 22.400 0-43.6000 MID% (test code = MID%) 6.1000 % 1.2000-11.2000 Neutrophils % (test code = Neutrophils %) 72.5000 % 48.900 0-69.9000 Lymphocytes (test code = Lymphocytes) 3.1000 1.2000-3.2 000 MID (test code = MID) 0.9000 0.1000-1.1000 Neutrophils (test code = Neutrophils) 10.6000 1.5000-6.7 000 RBC (test code = RBC) 2.4000 3.7000-4.9000 HGB (test code = HGB) 8.1000 g/dL 11.2000-18.0000 HCT (test code = HCT) 23.7000 % 34.0000-44.0000 MCV (test code = MCV) 98.9000 fL 80.0000-94.0000 MCH (test code = MCH) 33.7000 pg 27.0000-34.0000 MCHC (test code = MCHC) 34.0000 g/dL 31.5000-36.0000 RDW (test code = RDW) 19.8000 11.0000-18.0000 PLT (test code = PLT) 422.0000 140.0000-440.0000 MPV (test code = MPV) 7.9000 fL 6.8000-10.6000 C-Reactive Protein (CRP), Yeosfrmbdbep5440-80-57 13:29:00 Test Item Value Reference Range Comments CRP (C-reactive Protein, Inflammatory) (test code 4.13 mg/dL <=0.60 = 1987-) Lab Interpretation (test code = 83247-1) Abnormal Sedimentation Jvdo-Jiarnnyhh7540-21-05 13:09:00 Test Item Value Reference Range Comments Sedimentation Rate-Automated (test code = 32193-1) >140 0- 15 mm/hr Lab Interpretation (test code = 03003-0) Abnormal Complete Blood Count (CBC) with Jrrrtakletdh2498-71-83 12:19:00 Test Item Value Reference Range Comments WBC (White Blood Cell Count) (test code = 12.6 3.2- 9.8 x10 9 50855-0) /L Hemoglobin (test code = 718-7) 6.7 g/dL 13.7-17.3 Hematocrit (test code = 4544-3) 20.2 % 39-49 Platelets (test code = 41197-9) 382 150- 450 x10 9 /L MCV (Mean Corpuscular Volume) (test code = 97 fL 80-98 787-2) MCH (Mean Corpuscular Hemoglobin) (test code = 32.1 pg 2 6.5-34 785-6) MCHC (Mean Corpuscular Hemoglobin 33.2 % 31.5-36.3 Concentration) (test code = 786-4) RBC (Red Blood Cell Count) (test code = 2.09 4.37- 5.74 x10 1 73541-0) 2/L RDW-CV (Red Cell Distribution Width) (test 17.8 % 11.5- 14.5 code = 59788-8) NRBC (Nucleated Red Blood Cell Count) (test 0.12 0 x10 9 code = 92108-2) /L NRBC % (Nucleated Red Blood Cell %) (test code 1.0 % = 31016-3) MPV (Mean Platelet Volume) (test code = 10.0 fL 7.2-11.7 45484467) Neutrophil Count (test code = 83175-7) 8.2 2 .0- 8.6 x10 9 /L Neutrophil % (test code = 54511-3) 65.1 % 37-80 Lymphocyte Count (test code = 38079-9) 2.1 0 .6- 4.2 x10 9 /L Lymphocyte % (test code = 33606-9) 17.0 % 10-50 Monocyte Count (test code = 13212-1) 1.2 0- 0.9 x10 9 /L Monocyte % (test code = 92735-8) 9.8 % 0-12 Eosinophil Count (test code = 711-2) 0.85 0- 0.70 x10 9 /L Eosinophil % (test code = 89404-5) 6.7 % 0-7 Basophil Count (test code = 704-7) 0.12 0- 0. 20 x10 9 /L Basophil % (test code = 706-2) 1.0 % 0-2 Immature Granulocyte Count (test code = 0.05 <=0.06 x10 9 34493-9) /L Immature Granulocyte % (test code = 86135-0) 0.4 % <=0 .7 Lab Interpretation (test code = 66628-0) Abnormal Blood Film- Special Mxwr4967-42-16 06:06:00 Test Item Value Reference Range Comments Hematology Comment (test code SLIDE IMAGES AVAILABLE IN = 95049977) CELLAVISION FOR 7 DAYS. NOTE: WHITE BLOOD CELLS HAVE BEEN PRE-SORTED BY THE INSTRUMENT BUT HAVE NOT BEEN REVIEWED BY LABORATORY STAFF ON BLOOD FILM ORDERS. DCAL #2 [id number] 06:06:00 Test Item Value Reference Range Comments Reticulocyte % (test code = 4679-7) 6.89 % 0.7-2 Reticulocyte Count /L (test code = 51953-9) 139.9 28.0 - 134.0 x10^9/L Immature Reticulocyte Fraction (test code = 18.5 % 3.1- 16 43374-3) Lab Interpretation (test code = 60741-7) Abnormal Complete Blood Count (CBC)2019-12-01 06:06:00 Test Item Value Reference Range Comments WBC (White Blood Cell Count) (test code = 14.1 3.2- 9.8 x10 9 74239-4) /L Hemoglobin (test code = 718-7) 6.4 g/dL 13.7-17.3 Hematocrit (test code = 4544-3) 19.9 % 39-49 Platelets (test code = 39060-5) 228 150- 450 x10 9 /L MCV (Mean Corpuscular Volume) (test code = 98 fL 80-98 787-2) MCH (Mean Corpuscular Hemoglobin) (test code = 31.5 pg 2 6.5-34 785-6) MCHC (Mean Corpuscular Hemoglobin 32.2 % 31.5-36.3 Concentration) (test code = 786-4) RBC (Red Blood Cell Count) (test code = 2.03 4.37- 5.74 x10 1 76449-9) 2/L RDW-CV (Red Cell Distribution Width) (test 17.5 % 11.5- 14.5 code = 35625-8) NRBC (Nucleated Red Blood Cell Count) (test 0.07 0 x10 9 code = 59876-6) /L NRBC % (Nucleated Red Blood Cell %) (test code 0.5 % = 30443-5) MPV (Mean Platelet Volume) (test code = 10.3 fL 7.2-11.7 68127216) Lab Interpretation (test code = 48700-0) Abnormal Lactate Dehydrogenase (LDH)2019-12-01 05:27:00 Test Item Value Reference Range Comments Lactate Dehydrogenase (LDH) (test code = 82187-0) 323 U/L 100-200 Lab Interpretation (test code = 78096-5) Abnormal Prepare RBC (Crossmatch) - Nix-Cmkhuktota6564-53-31 00:02:11 Test Item Value Reference Range Comments Cross Match Result (test code = 6298468650) Compatible Unit Blood Type (test code = 1321871556) O Pos Unit Number (test code = 1083717548) [id number] Blood Expiration Date (test code = 053220351741 6963168272) Status Information (test code = 7520603780) Released Product Identification (test code = Red Blood Cells 1237173998) Product Code (test code = 9397297933) [id number] Coded Unit Blood Type (test code = 5100 7439633407) Oudxjpndyomwi5842-77-33 16:04:00 Test Item Value Reference Range Comments Reticulocyte % (test code = 4679-7) 9.24 % 0.7-2 Reticulocyte Count /L (test code = 60411-5) 187.6 28.0 - 134.0 x10^9/L Immature Reticulocyte Fraction (test code = 19.0 % 3.1- 16 31893-0) Lab Interpretation (test code = 26831-6) Abnormal Complete Blood Count (CBC)2019-11-30 06:39:00 Test Item Value Reference Range Comments WBC (White Blood Cell Count) (test code = 16.1 3.2- 9.8 x10 9 27183-0) /L Hemoglobin (test code = 718-7) 6.4 g/dL 13.7-17.3 Hematocrit (test code = 4544-3) 19.4 % 39-49 Platelets (test code = 17164-9) 196 150- 450 x10 9 /L MCV (Mean Corpuscular Volume) (test code = 97 fL 80-98 787-2) MCH (Mean Corpuscular Hemoglobin) (test code = 32.0 pg 2 6.5-34 785-6) MCHC (Mean Corpuscular Hemoglobin 33.0 % 31.5-36.3 Concentration) (test code = 786-4) RBC (Red Blood Cell Count) (test code = 2.00 4.37- 5.74 x10 1 95927-9) 2/L RDW-CV (Red Cell Distribution Width) (test 17.6 % 11.5- 14.5 code = 22242-9) NRBC (Nucleated Red Blood Cell Count) (test 0.08 0 x10 9 code = 50037-6) /L NRBC % (Nucleated Red Blood Cell %) (test code 0.5 % = 23186-0) MPV (Mean Platelet Volume) (test code = 10.6 fL 7.2-11.7 63692711) Lab Interpretation (test code = 24954-1) Abnormal Complete Blood Count (CBC)2019-11-29 05:55:00 Test Item Value Reference Range Comments WBC (White Blood Cell Count) (test code = 15.2 3.2- 9.8 x10 9 74556-5) /L Hemoglobin (test code = 718-7) 7.6 g/dL 13.7-17.3 Hematocrit (test code = 4544-3) 22.7 % 39-49 Platelets (test code = 76527-3) 173 150- 450 x10 9 /L MCV (Mean Corpuscular Volume) (test code = 94 fL 80-98 787-2) MCH (Mean Corpuscular Hemoglobin) (test code = 31.5 pg 2 6.5-34 785-6) MCHC (Mean Corpuscular Hemoglobin 33.5 % 31.5-36.3 Concentration) (test code = 786-4) RBC (Red Blood Cell Count) (test code = 2.41 4.37- 5.74 x10 1 93644-9) 2/L RDW-CV (Red Cell Distribution Width) (test 18.1 % 11.5- 14.5 code = 81398-0) NRBC (Nucleated Red Blood Cell Count) (test 0.13 0 x10 9 code = 25649-9) /L NRBC % (Nucleated Red Blood Cell %) (test code 0.9 % = 01308-2) MPV (Mean Platelet Volume) (test code = 10.8 fL 7.2-11.7 25315566) Lab Interpretation (test code = 55635-8) Abnormal Prepare jqheinwdkrkmypq9532-03-54 18:00:33 Test Item Value Reference Range Comments Unit Blood Type (test code = 9242976748) A Pos Unit Number (test code = 8289165893) [id number] Blood Expiration Date (test code = 250055335237 0478257845) Status Information (test code = 0257429442) Transfused Product Identification (test code = Cryoprecipitate 6365697355) Product Code (test code = 4897640722) U1260S52 Coded Unit Blood Type (test code = 6200 8504413880) Prepare RBC (Crossmatch) - Vcl-Omeqibkpya2877-38-28 18:00:29 Test Item Value Reference Range Comments Cross Match Result (test code = 4432066678) Compatible Unit Blood Type (test code = 8432284644) A Neg Unit Number (test code = 4596914882) [id number] Blood Expiration Date (test code = 404682668414 4022333361) Status Information (test code = 3887433445) Transfused Product Identification (test code = Red Blood Cells 7632828072) Product Code (test code = 7108473606) H6294H53 Coded Unit Blood Type (test code = 600 8982640323) X-ray pelvis 1 to 2 views pzgmlewu3688-03-60 09:00:51Pelvis radiograph, AP view Clinical information: s/p L hip surgery, 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 Comparison: August 10, [address] radiograph. Selected images from CT 2018. Radiograph August 18, 2019 Findings/Impression: Interval revision of the acetabular component of the total left hiparthroplasty with placement of antibiotic cement at the acetabulum. Some ofthe left hip is heterotopic ossification is no longer present. Postsurgicalchanges of subcutaneous gas, edema, and drain are present. 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 Unchanged alignment of the right hip acetabular component. Nonew periprosthetic lucency or hardware failure. Surgical clip overlies the right pelvis, new in the interval and ofuncertain significance, possibly extrinsic to the patient. Electronically Signed by: Chidi Dean MD, [facility] Signed on: 11/28/2019 9:00 AMInterface, Rad Results In - 11/28/2019 9:02 AM ESTPelvis radiograph, AP view Clinical information: s/p L hip surgery, T84.038A Mechanical loosening of other internal prosthetic joint, initial encounter ([facility]), Z96.649 Presence of unspecified artificial hip joint. Comparison: August 10, 2019 radiograph. Selected images from CT August 17, 2019. Radiograph August 18, 2019 Findings/Impression: Interval revision of the acetabular component of the total left hip arthroplasty with placement of antibiotic cement at the acetabulum. Some of the left hip is heterotopic ossification is no longer present. Postsurgical changes of subcutaneous gas, edema, and drain are present. 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 Unchanged alignment of the right hip acetabular component. No new periprosthetic lucency or hardware failure.Surgical clip overlies the right pelvis, new in the interval and of uncertain significance, possiblyextrinsic to the patient. Electronically Signed by: Chidi Dean MD, [facility] Electronically Signed on: 11/28/2019 9:00 AMPrepare RBC (Crossmatch) - Xuo-Pbwvakydlg5910-44-28 06:02:07 Test Item Value Reference Range Comments Cross Match Result (test code = 5183694358) Compatible Unit Blood Type (test code = 6947238688) A Neg Unit Number (test code = 9738054513) [id number] Blood Expiration Date (test code = 119019947757 8894645060) Status Information (test code = 5303435444) Transfused Product Identification (test code = Red Blood Cells 0210237852) Product Code (test code = 0925087415) P3343R62 Coded Unit Blood Type (test code = 600 7269629609) Prepare fresh frozen grtgvd1766-38-73 06:01:43 Test Item Value Reference Range Comments Unit Blood Type (test code = 0582008033) AB Neg Unit Number (test code = 9367276842) [id number] Blood Expiration Date (test code = 8837414984) 331134080003 Status Information (test code = 1987303510) Transfused Product Identification (test code = FFP 7551627194) Product Code (test code = 8026627613) Q0728V09 Coded Unit Blood Type (test code = 8103638988) 2800 Prepare RBC (Crossmatch) - Zje-Zrpdmnqleh1054-13-28 06:01:42 Test Item Value Reference Range Comments Cross Match Result (test code = 6290995683) Compatible Unit Blood Type (test code = 5669522393) A Neg Unit Number (test code = 1092461933) [id number] Blood Expiration Date (test code = 993171996396 6050643042) Status Information (test code = 0313823157) Transfused Product Identification (test code = Red Blood Cells 7645252909) Product Code (test code = 2940250899) L2466Z27 Coded Unit Blood Type (test code = 600 3329227039) Complete Blood Count (CBC)2019-11-28 05:22:00 Test Item Value Reference Range Comments WBC (White Blood Cell Count) 13.7 3.2- 9.8 x1 0 9 (test code = 64325-7) /L Hemoglobin (test code = 718-7) 8.0 g/dL 13.7-17.3 Hematocrit (test code = 23.1 % 39-49 4544-3) Platelets (test code = 189 150- 450 x10 9 18980-9) /L MCV (Mean Corpuscular Volume) 90 fL 80-98 (test code = 787-2) MCH (Mean Corpuscular 31.0 pg 26.5-34 Hemoglobin) (test code = 785-6) MCHC (Mean Corpuscular 34.6 % 31.5-36.3 Hemoglobin Concentration) (test code = 786-4) RBC (Red Blood Cell Count) 2.58 4.37- 5.74 x1 0 1 (test code = 29755-2) 2/L RDW-CV (Red Cell Distribution 16.7 % 11.5-14.5 Width) (test code = 44854-3) NRBC (Nucleated Red Blood Cell 0.13 0 x10 9 Count) (test code = 21367-9) /L NRBC % (Nucleated Red Blood 0.9 % Cell %) (test code = 60547-4) MPV (Mean Platelet Volume) 10.5 fL 7.2-11.7 (test code = 37146930) Slide Review/Morphology (test Yes Bl ood film reviewed, code = 62184480) instrument coun ts confirmed, Lab Interpretation (test code Abnormal = 73116-6) Basic Metabolic Panel (BMP)2019-11-28 05:00:00 Test Item Value Reference Range Comments Sodium (test code = 2951-2) 140 mmol/L 135-145 Potassium (test code = 2823-3) 4.5 mmol/L 3.5-5 Chloride (test code = 2075-0) 107 mmol/L 98-108 Carbon Dioxide (CO2) (test 25 mmol/L 21-30 code = 8-9) Urea Nitrogen (BUN) (test code 11 mg/dL 7-20 = 3094-0) Creatinine (test code = 0.7 mg/dL 0.6-1.3 2160-0) Glucose (test code = 2345-7) 124 mg/dL 70-140 Int erpretive Data: Above is the NONFASTING r eference range. Below are the FASTING reference ranges : NORMAL: 70-99 mg/dL PREDIABETES: 100 -125 mg/dL DIABETES: > 125 mg/dL Calcium (test code = 74231-1) 7.9 mg/dL 8.7-10.2 Anion Gap (test code = 8 mmol/L 3-12 77606-0) BUN/CREA Ratio (test code = 16 6- 45647604) Glomerular Filtration Rate 146 mL/min/1.73sq m Inter pretive Ranges eGFR (eGFR) (test code = 50991-1) (C KD-EPI): eGFR: > 60 mL/min/1.73 s q m - Normal eGFR: 30 - 59 mL/min/1.73 sq m - Moderately Decre ased eGFR: 15 - 29 mL/min/1.73 sq m - Severely Decreased eGFR: < 15 mL/min/1.73 sq m - Kidney Failure Note: Th rossi GFR calculations do not apply in acute situations when GFR is changing rapidly or in patients on dial ysis. Lab Interpretation (test code Abnormal = 00704-4) Prepare fresh frozen fzipkn7565-84-80 20:41:26 Test Item Value Reference Range Comments Unit Blood Type (test code = 1108580881) A Pos Unit Number (test code = 5995774999) [id number] Blood Expiration Date (test code = 6879640543) 577808200992 Status Information (test code = 8978225404) Released Product Identification (test code = FFP 6205903472) Product Code (test code = 2754456756) N4127G04 Coded Unit Blood Type (test code = 6322027849) 6200 Prepare fresh frozen sfqcqy2483-56-81 20:41:25 Test Item Value Reference Range Comments Unit Blood Type (test code = 7034057143) A Pos Unit Number (test code = 7618416451) [id number] Blood Expiration Date (test code = 1626467588) 513217159220 Status Information (test code = 7213758058) Released Product Identification (test code = FFP 6523703486) Product Code (test code = 1492495203) P9825C42 Coded Unit Blood Type (test code = 8594343686) 6200 Shock Panel, Grtweavc2189-73-73 19:17:00 Test Item Value Reference Range Comments Patient Temperature, Arterial 37.5 C (test code = 58532437) FIO2, Arterial (test code = 34 % 6) PH, Arterial (test code = 7.38 7.35-7.45 2743-) PCO2, Arterial (test code = 42 35- 45 mmHg 2019-06) PO2, Arterial (test code = 182 75- 100 mmHg 2703-7) Base Excess, Arterial (test 0 mmol/L -3-3 code = 1925-7) Bicarbonate, Arterial (test 25 mmol/L 20-28 code = 1960-4) Total CO2, Arterial (test code 26 mmol/L 21-31 = 2025-3) Hemoglobin, Arterial (test 8.9 g/dL 13.7-17.3 code = 62775-8) Hematocrit, Arterial (test 27.0 % 39-49 code = 55303-8) % O2 Hemoglobin, Arterial 94.7 % 94-99 (test code = 2714-4) % CO Hemoglobin, Arterial 4.2 % <=2.0 Interp retive Data (test code = 2029-) Interpretiv e Data (%) Non-S mokers: 0 -2.0 Smoke rs: 1-2 packs/day 0-5 .0 Smokers: 3-4 packs/day 0-9 .0 % Methemoglobin, Arterial 1.3 % 0.4-1.5 (test code = 2615-3) Volume % O2, Arterial (test 12.3 % 15-24 code = 96925251) Sodium, Arterial (test code = 139 mmol/L 135-145 02476-1) Potassium, Arterial (test code 4.8 mmol/L 3.5-5 = 72324-1) Glucose, Nonfasting, Arterial 132 mg/dL 70-140 (test code = 24327-4) Calcium, Ionized (test code = 1.03 mmol/L 1.15-1.32 83202-5) Lactate, Whole Blood (test 1.6 mmol/L 0.6-1.8 code = 23056-4) Lab Interpretation (test code Abnormal = 16898-1) Maria Guadalupe Ydiwq6444-66-93 18:51:00 Test Item Value Reference Range Comments Extem Clot Time (test code = 01871349) 74 43- 82 Se conds Extem Clot Formation Time (test code = 31600647) 77 48- 127 Seconds Extem Alpha Angle (test code = 85906748) 74 65- 80 Degrees Extem Amplitude at 10 Min (test code = 47388340) 56 mm 44-64 Extem Amplitude at 20 Min (test code = 02571923) 62 mm 50-70 Extem Maximum Clot Firmness (test code = 77480862) 63 mm 52-70 Extem LI30 (test code = 09777607) 100 % 97-100 RACHEL (test code = RACHEL) Lab Interpretation (test code = 46834-5) Normal Maria Guadalupe Vcejqd7900-21-10 18:51:00 Test Item Value Reference Range Comments Fibtem Amplitude at 10 Min (test code = 24412160) 14 mm 10-24 Fibtem Amplitude at 20 Min (test code = 81792008) 14 mm 10-24 Fibtem Maximum Clot Firmness (test code = 91708363) 15 mm 11-24 RACHEL (test code = RACHEL) Lab Interpretation (test code = 26510-6) Normal Shock Panel, Fplhpyrc5687-65-56 18:16:00 Test Item Value Reference Range Comments Patient Temperature, Arterial 37.0 C (test code = 98021342) FIO2, Arterial (test code = FIO2 not provided. 2707-6) PH, Arterial (test code = 7.38 7.35-7.45 2743-1) PCO2, Arterial (test code = 46 35- 45 mmHg 2019-06) PO2, Arterial (test code = 151 75- 100 mmHg 2703-05) Base Excess, Arterial (test 2 mmol/L -3-3 code = 1925-7) Bicarbonate, Arterial (test 27 mmol/L 20-28 code = 1959-4) Total CO2, Arterial (test code 29 mmol/L 21-31 = 2025-12) Hemoglobin, Arterial (test 8.9 g/dL 13.7-17.3 code = 45445-3) Hematocrit, Arterial (test 27.0 % 39-49 code = 87178-5) % O2 Hemoglobin, Arterial 94.9 % 94-99 (test code = 2714-4) % CO Hemoglobin, Arterial 4.1 % <=2.0 Interp retive Data (test code = 2029-5) Interpretiv e Data (%) Non-S mokers: 0 -2.0 Smoke rs: 1-2 packs/day 0-5 .0 Smokers: 3-4 packs/day 0-9 .0 % Methemoglobin, Arterial 1.1 % 0.4-1.5 (test code = 2615-3) Volume % O2, Arterial (test 12.2 % 15-24 code = 94456804) Sodium, Arterial (test code = 142 mmol/L 135-145 33109-0) Potassium, Arterial (test code 4.5 mmol/L 3.5-5 = 82754-6) Glucose, Nonfasting, Arterial 146 mg/dL 70-140 (test code = 96875-6) Calcium, Ionized (test code = 1.13 mmol/L 1.15-1.32 14984-9) Lactate, Whole Blood (test 1.6 mmol/L 0.6-1.8 code = 97097-5) Lab Interpretation (test code Abnormal = 56735-8) Platelet [id number] 17:52:00 Test Item Value Reference Range Comments Platelets (test code = 93416-1) 251 150- 450 x10 9 /L Lab Interpretation (test code = 31203-7) Normal [id number] 17:50:00 Test Item Value Reference Range Comments Fibrinogen (test code = 3255-7) 180 mg/dL 213-435 The direct thrombin inhibitors (arga troban, bivalirudin, and lepirudin) have been report ed to interfere with t he clot-based fibri nogen assay used in the [facility], resu lting in decreased plasma fibrinogen levels. This occ urs most prominently with argatroban, followed by biva lirudin, and then lepirudin. Lab Interpretation (test code = Abnormal 82479-6) Blood Gas + NA/K/ICA/Glucose/Lactate, Arterial, [id number] 17:45:00 Test Item Value Reference Range Comments % CO Hemoglobin, Arterial, OR 4.2 % 0-2 In terpretive Data (test code = 60465127) Interpretiv e Data (%) Non-S mokers: 0 -2.0 Smoke rs: 1-2 packs/day 0-5 .0 Smokers: 3-4 packs/day 0-9 .0 % Methemoglobin, Arterial, OR 1.5 % 0.4-1.5 (test code = 48268800) % O2 Hemoglobin, Arterial, OR 94.2 % 94-99 (test code = 21984417) Base Excess, Arterial, OR 2 mmol/L -3-3 (test code = 11599174) Calcium, Ionized, OR (test 0.99 mmol/L 1.15-1.32 code = 40091138) Glucose Nonfasting-ABG, OR 159 mg/dL 70-140 (test code = 19375829) Bicarbonate, Arterial, OR 27 mmol/L 20-28 (test code = 90796545) Hematocrit, Arterial, OR (test 22.0 % 39-49 code = 51172846) Hemoglobin, Arterial, OR (test 7.3 g/dL 13.7-17.3 code = 40499622) Potassium, Arterial, OR (test 4.5 mmol/L 3.5-5 code = 21845210) Lactate, Whole Blood, OR (test 1.4 mmol/L 0.6-1.8 code = 68018899) Sodium, Arterial, OR (test 141 mmol/L 135-145 code = 00864526) PCO2, Arterial, OR (test code 44 35- 45 mmHg = 02952045) PH, Arterial, OR (test code = 7.40 7.35-7.45 08128270) PO2, Arterial, OR (test code = 147 75- 100 mmHg 02582658) Total CO2, Arterial, OR (test 29 mmol/L 21-30 code = 12672559) Volume % O2, Arterial, OR 10.0 % 15-24 (test code = 29180724) Patient Temperature, Arterial, 37.0 Celcius OR (test code = 15703669) RALS Comment (test code = 71891076) Lab Interpretation (test code Abnormal = 42362-5) Maria Guadalupe [id number] 17:04:00 Test Item Value Reference Range Comments Extem Clot Time (test code = 03482640) 74 43- 82 Se conds Extem Clot Formation Time (test code = 42223374) 66 48- 127 Seconds Extem Alpha Angle (test code = 04782659) 76 65- 80 Degrees Extem Amplitude at 10 Min (test code = 69523367) 60 mm 44-64 Extem Amplitude at 20 Min (test code = 41910268) 66 mm 50-70 Extem Maximum Clot Firmness (test code = 93027460) 67 mm 52-70 Extem LI30 (test code = 17097350) 100 % 97-100 RACHEL (test code = RACHEL) Lab Interpretation (test code = 02666-8) Normal Maria Guadalupe [id number] 17:04:00 Test Item Value Reference Range Comments Fibtem Amplitude at 10 Min (test code = 84244218) 16 mm 10-24 Fibtem Amplitude at 20 Min (test code = 01253932) 16 mm 10-24 Fibtem Maximum Clot Firmness (test code = 01538152) 18 mm 11-24 RACHEL (test code = RACHEL) Lab Interpretation (test code = 91903-4) Normal Blood Gas + NA/K/ICA/Glucose/Lactate, Arterial, [id number] 16:56:00 Test Item Value Reference Range Comments % CO Hemoglobin, Arterial, OR 4.5 % 0-2 In terpretive Data (test code = 72230077) Interpretiv e Data (%) Non-S mokers: 0 -2.0 Smoke rs: 1-2 packs/day 0-5 .0 Smokers: 3-4 packs/day 0-9 .0 % Methemoglobin, Arterial, OR 1.2 % 0.4-1.5 (test code = 53561037) % O2 Hemoglobin, Arterial, OR 94.1 % 94-99 (test code = 06398693) Base Excess, Arterial, OR 3 mmol/L -3-3 (test code = 96478555) Calcium, Ionized, OR (test 1.16 mmol/L 1.15-1.32 code = 49921075) Glucose Nonfasting-ABG, OR 104 mg/dL 70-140 (test code = 13114847) Bicarbonate, Arterial, OR 28 mmol/L 20-28 (test code = 90298867) Hematocrit, Arterial, OR (test 22.0 % 39-49 code = 54106385) Hemoglobin, Arterial, OR (test 7.4 g/dL 13.7-17.3 code = 50883324) Potassium, Arterial, OR (test 4.5 mmol/L 3.5-5 code = 56723980) Lactate, Whole Blood, OR (test 0.7 mmol/L 0.6-1.8 code = 84483213) Sodium, Arterial, OR (test 141 mmol/L 135-145 code = 85556479) PCO2, Arterial, OR (test code 44 35- 45 mmHg = 75857597) PH, Arterial, OR (test code = 7.41 7.35-7.45 55442752) PO2, Arterial, OR (test code = 158 75- 100 mmHg 79376152) Total CO2, Arterial, OR (test 29 mmol/L 21-30 code = 93591931) Volume % O2, Arterial, OR 10.2 % 15-24 (test code = 88000445) Patient Temperature, Arterial, 37.0 Celcius OR (test code = 47776126) RALS Comment (test code = 69450949) Lab Interpretation (test code Abnormal = 67228-6) Shock Panel, [id number] 16:03:00 Test Item Value Reference Range Comments Patient Temperature, Arterial 37.0 C (test code = 52620285) FIO2, Arterial (test code = NO F IO2 PROVIDED 2708-04) PH, Arterial (test code = 7.40 7.35-7.45 2743-) PCO2, Arterial (test code = 47 35- 45 mmHg 2019-06) PO2, Arterial (test code = 413 75- 100 mmHg 2703-05) Base Excess, Arterial (test 4 mmol/L -3-3 code = 1925-7) Bicarbonate, Arterial (test 29 mmol/L 20-28 code = 1959-4) Total CO2, Arterial (test code 31 mmol/L 21-31 = 2025-) Hemoglobin, Arterial (test 5.6 g/dL 13.7-17.3 code = 05370-9) Hematocrit, Arterial (test 17.0 % 39-49 code = 41882-8) % O2 Hemoglobin, Arterial 94.8 % 94-99 (test code = 2714-4) % CO Hemoglobin, Arterial 6.1 % <=2.0 Interp retive Data (test code = 2030-5) Interpretiv e Data (%) Non-S mokers: 0 -2.0 Smoke rs: 1-2 packs/day 0-5 .0 Smokers: 3-4 packs/day 0-9 .0 % Methemoglobin, Arterial 1.1 % 0.4-1.5 (test code = 2615-3) Volume % O2, Arterial (test 8.7 % 15-24 code = 32195711) Sodium, Arterial (test code = 143 mmol/L 135-145 07820-1) Potassium, Arterial (test code 4.3 mmol/L 3.5-5 = 85306-9) Glucose, Nonfasting, Arterial 86 mg/dL 70-140 (test code = 38032-8) Calcium, Ionized (test code = 1.24 mmol/L 1.15-1.32 17514-4) Lactate, Whole Blood (test 0.8 mmol/L 0.6-1.8 code = 74261-9) Lab Interpretation (test code Abnormal = 80678-2) Type And [id number] 13:59:00 Test Item Value Reference Range Comments ABO RH TYPE (test code = 882-1) A Positive Antibody Screen (test code = 890-4) Negative Specimen Outdate (test code = 62245074) 11-30-2019 23:59 Complete Blood Count (CBC)2019-11-27 12:59:00 Test Item Value Reference Range Comments WBC (White Blood Cell Count) (test code = 14.9 3.2- 9.8 x10 9 72871-5) /L Hemoglobin (test code = 718-7) 7.1 g/dL 13.7-17.3 Hematocrit (test code = 4544-3) 20.1 % 39-49 Platelets (test code = 94283-0) 367 150- 450 x10 9 /L MCV (Mean Corpuscular Volume) (test code = 97 fL 80-98 787-2) MCH (Mean Corpuscular Hemoglobin) (test code = 34.3 pg 2 6.5-34 785-6) MCHC (Mean Corpuscular Hemoglobin 35.3 % 31.5-36.3 Concentration) (test code = 786-4) RBC (Red Blood Cell Count) (test code = 2.07 4.37- 5.74 x10 1 05389-5) 2/L RDW-CV (Red Cell Distribution Width) (test 22.7 % 11.5- 14.5 code = 62404-5) NRBC (Nucleated Red Blood Cell Count) (test 0.19 0 x10 9 code = 03720-9) /L NRBC % (Nucleated Red Blood Cell %) (test code 1.3 % = 06159-5) MPV (Mean Platelet Volume) (test code = 10.7 fL 7.2-11.7 11446474) Lab Interpretation (test code = 67156-5) Abnormal Basic Metabolic Panel (BMP)2019-11-10 11:35:00 Test Item Value Reference Range Comments Sodium (test code = 2951-2) 138 mmol/L 135-145 Potassium (test code = 4.3 mmol/L 3.5-5 2823-3) Chloride (test code = 103 mmol/L 98-108 2075-0) Carbon Dioxide (CO2) (test 28 mmol/L 21-30 code = 8-9) Urea Nitrogen (BUN) (test 8 mg/dL 7-20 code = 3094-0) Creatinine (test code = 0.9 mg/dL 0.6-1.3 2160-0) Glucose (test code = 2345-7) 103 mg/dL 70-140 Int erpretive Data: Above is the NONFASTING r eference range. Below are the FASTING reference ranges : NORMAL: 70-99 mg/dL PREDIABETES: 100-125 mg/dL DI ABETES: > 125 mg/dL Calcium (test code = 9.0 mg/dL 8.7-10.2 20840-1) Anion Gap (test code = 7 mmol/L 3-12 96294-4) BUN/CREA Ratio (test code = 9 6-27 87656377) Glomerular Filtration Rate 131 mL/min/1.73sq m Inter pretive Ranges eGFR (eGFR) (test code = (CKD-EPI): eGFR: > 60 95523-5) mL/min/1.73 sq m - Normal eGFR: 30 - 59 mL/min/1.73 sq m - Moderately Decreased eGFR: 15 - 29 mL/min/1.73 s q m - Severely Decreased eGFR: < 15 mL/min/1.73 sq m - Kidney Failure Note: Th rossi GFR calculations do not apply in acute situations when GFR is changing rapidly or in patients on dial ysis. [id number] 11:35:00 Test Item Value Reference Range Comments Albumin (test code = 1751-7) 3.0 g/dL 3.5-4.8 Lab Interpretation (test code = 98212-8) Abnormal Complete Blood Count (CBC)2019-11-10 11:10:00 Test Item Value Reference Range Comments WBC (White Blood Cell Count) (test code = 15.5 3.2- 9.8 x10 9 33583-4) /L Hemoglobin (test code = 718-7) 6.9 g/dL 13.7-17.3 Hematocrit (test code = 4544-3) 20.8 % 39-49 Platelets (test code = 87892-4) 272 150- 450 x10 9 /L MCV (Mean Corpuscular Volume) (test code = 103 fL 80-98 787-2) MCH (Mean Corpuscular Hemoglobin) (test code = 34.0 pg 2 6.5-34 785-6) MCHC (Mean Corpuscular Hemoglobin 33.2 % 31.5-36.3 Concentration) (test code = 786-4) RBC (Red Blood Cell Count) (test code = 2.03 4.37- 5.74 x10 1 14528-3) 2/L RDW-CV (Red Cell Distribution Width) (test 23.6 % 11.5- 14.5 code = 04280-6) NRBC (Nucleated Red Blood Cell Count) (test 0.91 0 x10 9 code = 19445-3) /L NRBC % (Nucleated Red Blood Cell %) (test code 5.9 % = 79319-5) MPV (Mean Platelet Volume) (test code = 11.6 fL 7.2-11.7 00451018) Lab Interpretation (test code = 29733-6) Abnormal [id number] 14:37:00 Test Item Value Reference Range Comments Creatinine (test code = Creatinine) 0.8500 mg/dL 0.7600-1.270 0 Cr Clearance (Est) (test code = Cr 91.9400 85.0000-125.0 000 Clearance (Est)) Glucose (test code = Glucose) 124.0000 mg/dL 65.0000-99.0000 BUN (test code = BUN) 12.0000 mg/dL 6.0000-20.0000 eGFR Olq-Qglmmpk-Xpjvxxku (test code = 116.0000 eGFR Qdp-Wdllypa-Vmrjwcod) eGFR -Kittitian (test code = eGFR 134.0000 -Kittitian) BUN/Creat Ratio (test code = BUN/Creat 14.0000 9.0000-20 .0000 Ratio) Sodium (test code = Sodium) 135.0000 mmol/L 134.0000-144.0000 Potassium (test code = Potassium) 4.6000 mmol/L 3.5000-5.2000 Chloride (test code = Chloride) 99.0000 mmol/L 96.0000-106.0000 CO2 (test code = CO2) 25.0000 mmol/L 20.0000-29.0000 Calcium (test code = Calcium) 8.5000 mg/dL 8.7000-10.2000 Protein, Total (test code = Protein, 7.9000 g/dL 6.0000-8.50 00 Total) Albumin (test code = Albumin) 3.2000 g/dL 3.5000-5.5000 Globulin (test code = Globulin) 4.7000 g/dL 1.5000-4.5000 A/G Ratio (test code = A/G Ratio) 0.7000 1.2000-2.2000 Bilirubin, Total (test code = Bilirubin, 1.8000 mg/dL 0.0000- 1.2000 Total) Alkaline Phosphatase (test code = 113.0000 39.0000-117.00 00 Alkaline Phosphatase) AST (SGOT) (test code = AST (SGOT)) 113.0000 0.0000-40.00 00 ALT (SGPT) (test code = ALT (SGPT)) 57.0000 0.0000-44.00 00 Iron, Total (test code = Iron, Total) 122.0000 38.0000-16 9.0000 TIBC (test code = TIBC) 147.0000 250.0000-450.0000 UIBC (test code = UIBC) 25.0000 111.0000-343.0000 % Iron Saturation (test code = % Iron 83.0000 % 15.0000-55 .0000 Saturation) Vitamin B12 (test code = Vitamin B12) 561.0000 pg/mL 232.0000-1 245.0000 Folate (test code = Folate) 17.5000 ng/mL Vitamin D (25-Hydroxy) (test code = 22.6000 ng/mL 30.0000-100. 0000 Vitamin D (25-Hydroxy)) Ferritin (test code = Ferritin) 7991.0000 ng/mL 30.0000-400.0000 [id number] 15:09:00 Test Item Value Reference Range Comments WBC (test code = WBC) 12.5000 4.0000-10.0000 Lymphocytes % (test code = Lymphocytes %) 31.6000 % 22.400 0-43.6000 MID% (test code = MID%) 5.9000 % 1.2000-11.2000 Neutrophils % (test code = Neutrophils %) 62.5000 % 48.900 0-69.9000 Lymphocytes (test code = Lymphocytes) 3.9000 1.2000-3.2 000 MID (test code = MID) 0.8000 0.1000-1.1000 Neutrophils (test code = Neutrophils) 7.8000 1.5000-6.7 000 RBC (test code = RBC) 2.0000 3.7000-4.9000 HGB (test code = HGB) 7.0000 g/dL 11.2000-18.0000 HCT (test code = HCT) 19.8000 % 34.0000-44.0000 MCV (test code = MCV) 99.1000 fL 80.0000-94.0000 MCH (test code = MCH) 35.2000 pg 27.0000-34.0000 MCHC (test code = MCHC) 35.5000 g/dL 31.5000-36.0000 RDW (test code = RDW) 23.0000 11.0000-18.0000 PLT (test code = PLT) 293.0000 140.0000-440.0000 MPV (test code = MPV) 8.2000 fL 6.8000-10.6000 Sedimentation [id number]-[id number] 15:41:00 Test Item Value Reference Range Comments Sedimentation Rate-Automated (test code = 30142-1) 69 0- 15 mm/hr Lab Interpretation (test code = 75179-4) Abnormal C-Reactive Protein (CRP), [id number] 15:13:00 Test Item Value Reference Range Comments CRP (C-reactive Protein, Inflammatory) (test code 4.11 mg/dL <=0.60 = 1987-5) Lab Interpretation (test code = 06437-3) Abnormal X-ray large arthrocentesis injection [id number] 11:27:03Procedure: Fluoroscopic-guided left hip joint aspiration. Clinical history and indication/ pre-procedure diagnosis: pain, M25.552Pain in left hip, M25.552 Pain in left hip, G89.29 Other chronic pain,T84.84XA Pain due to internal orthopedic prosthetic devices, implants andgrafts, initial encounter ([facility]) Comparison: CT pelvis of 08/17/2019. Radiologist(s): Michelle Rivera Consent: The risks, benef its and alternatives of arthrography werediscussed in detail, including risks of bleeding, infection, pain andallergic reaction. All questions answered and verbal and written informedconsent was obtained. Technique and Findings: The patient was placed supine on the fluoroscopictable. A "timeout"procedure was performed prior to Lidocaineadministration. The skin over the left hip was prepped anddraped insterile fashion. Local anesthetic was provided in the skin and subcutaneoustissues with 2 mL of 1% Lidocaine. Using fluoroscopic guidance a 18 gauge needle was placed into the left hip joint. No fluid was aspirated from the left hip joint after multipleattempts following repositioning. The elapsed time for this fluoroscopic procedure was 12 seconds. The needle was removed and hemostasis was achieved. The patient toleratedthe procedure well, without immediate complication. Estimated blood loss: Minimal. Impression/ post- procedure diagnosis: Fluoroscopic guided left hip joint aspiration. No fluid aspirated. Electronically Reviewed by: Kirstie Rivera MD, [facility] Reviewed on: 08/18/2019 11:19 AM ITopher, Attending Physician was present for the duration of theprocedure. I have reviewed the images and concur with the above findings. Electronically Signed by:Topher Martinez MD, [facility]ron[facility] Signed on: 08/18/2019 11:27 AMInterjin, Rad Results In - 08/18/2019 11:28 AM EDT Procedure: Fluoroscopic- guided left hip joint aspiration. Clinical history and indication/ pre-procedure diagnosis: pain, M25.552 Pain in left hip, M25.552 Pain in left hip, G89.29 Other chronic pain, T84.84XA Pain due to internal orthopedic prosthetic devices, implants and grafts, initial encounter ([facility]) Comparison: CT pelvis of 08/17/2019. Radiologist(s): Michelle Rivera Consent: The risks, benefits and alternatives of arthrography were discussed in detail, including risks of bleeding, infection, pain and allergic reaction. All questions answered and verbal and written informed consent was obtained. Technique and Findings: The patient was placed supine on the fluoroscopic table. A "timeout" procedure was performed prior to Lidocaine administration. The skin overthe left hip was prepped and draped in sterile fashion. Local anesthetic was provided in the skin and subcutaneous tissues with 2 mL of 1% Lidocaine. Using fluoroscopic guidance a 18 gauge needle was placed into the left hip joint. No fluid was aspirated from the left hip joint after multiple attemptsfollowing repositioning. The elapsed time for this fluoroscopic procedure was 12 seconds. The needlewas removed and hemostasis was achieved. The patient tolerated the procedure well, without immediatecomplication. Estimated blood loss: Minimal. Impression/ post- procedure diagnosis: Fluoroscopic guided left hip joint aspiration. No fluid aspirated. Electronically Reviewed by: Kirstie Rivera MD, [facility] Electronically Reviewed on: 08/18/2019 11:19 AM ITopher, Attending Physician was present for the duration of the procedure. I have reviewed the images and concur with the above findings. Electronically Signed by: Topher Martinez MD, [facility] Electronically Signed on: 08/18/2019 11:27 AMX-ray large arthrocentesis injection [id number] 11:27:03Procedure: Fluoroscopic- guided left hip joint aspiration. Clinical history and indication/ pre-pr ocedure diagnosis: pain, M25.552Pain in left hip, M25.552 Pain in left hip, G89.29 Other chronic pain,T84.84XA Pain due to internal orthopedic prosthetic devices, implants andgrafts, initial encounter ([facility]) Comparison: CT pelvis of 08/17/2019. Radiologist(s): Michelle Rivera Consent: The risks, benefits and alternatives of arthrography werediscussed in detail, including risks of bleeding, infection, pain andallergic reaction. All questions answered and verbal and written informedconsent was obtained. Technique and Findings: The patient was placed supine on the fluoroscopictable. A "timeout"procedure was performed prior to Lidocaineadministration. The skin over the left hip was prepped anddraped insterile fashion. Local anesthetic was provided in the skin and subcutaneoustissues with 2 mL of 1% Lidocaine. Using fluoroscopic guidance a 18 gauge needle was placed into the left hip joint. No fluid was aspirated from the left hip joint after multipleattempts following repositioning. The elapsed time for this fluoroscopic procedure was 12 seconds. The needle was removed and hemostasis was achieved. The patient toleratedthe procedure well, without immediate complication. Estimated blood loss: Minimal. Impression/ post- procedure diagnosis: Fluoroscopic guided left hip joint aspiration. No fluid aspirated. Electronically Reviewed by: Kirstie Rivera MD, [facility] Reviewed on: 08/18/2019 11:19 AM Topher Vallecillo, Attending Physician was present for the duration of theprocedure. I have reviewed the images and concur with the above findings. Electronically Signed by:Topher Martinez MD, [facility] Signed on: 08/18/2019 11:27 AMInterface, Rad Results In - 08/18/2019 11:28 AM EDT Procedure: Fluoroscopic- guided left hip joint aspiration. Clinical history and indication/ pre-procedure diagnosis: pain, M25.552 Pain in left hip, M25.552 Pain in left hip, G89.29 Other chronic pain, T84.84XA Pain due to internal orthopedic prosthetic devices, implants and grafts, initial encounter ([facility]) Comparison: CT pelvis of 08/17/2019. Radiologist(s): Michelle Rivera Consent: The risks, benefits and alternatives of arthrography were discussed in detail, including risks of bleeding, infection, pain and allergic reaction. All questions answered and verbal and written informed consent was obtained. Technique and Findings: The patient was placed supine on the fluoroscopic table. A "timeout" procedure was performed prior to Lidocaine administration. The skin overthe left hip was prepped and draped in sterile fashion. Local anesthetic was provided in the skin and subcutaneous tissues with 2 mL of 1% Lidocaine. Using fluoroscopic guidance a 18 gauge needle was placed into the left hip joint. No fluid was aspirated from the left hip joint after multiple attemptsfollowing repositioning. The elapsed time for this fluoroscopic procedure was 12 seconds. The needlewas removed and hemostasis was achieved. The patient tolerated the procedure well, without immediatecomplication. Estimated blood loss: Minimal. Impression/ post- procedure diagnosis: Fluoroscopic guided left hip joint aspiration. No fluid aspirated. Electronically Reviewed by: Kirstie Rivera MD, [facility] Electronically Reviewed on: 08/18/2019 11:19 AM Topher Vallecillo Attending Physician was present for the duration of the procedure. I have reviewed the images and concur with the above findings. Electronically Signed by: Topher Martinez MD, [facility] Electronically Signed on: 08/18/2019 11:27 [facility] BONE ORTHO WITHOUT CONTRAST [id number] 17:28:02PR PELVIS BONE ORTHO WITHOUT CONTRAST PROTOCOL Indication: Hip replaced, periprosthetic fracture suspected, Assess forheterotopic ossification in bilateral hip/pelvis, M25.552 Pain in left hip,G89.29 Other chronic pain, T84.84XA Pain due to internal orthopedicprosthetic devices, implants and grafts, initial encounter ([facility]). Comparison: Outside CT June 16, 2019, radiograph July 21.. Technique: Non-contrast axial images of the pelvis were acquired with 0.625mm slice thickness. Sagittal and coronal reformatted images were createdfrom the data, and this examination was interpreted using these multiplanarreconstructions. Findings: Hardware: Bilateral total hip arthroplasties. Left acetabular component has similar lucency/osteolysis greatest at themedial acetabulum. The posterior leftacetabular screw extends slightlythrough the posterior cortex, unchanged. The acetabular component wilcox srelative vertical and posterior location in relation to the femoral head,largely unchanged from prior. There is similar degree of lucency about thefemoral component at the level of the intertrochanteric ridge. Right hip acetabular component has similar lucency/osteolysis along theperipheral aspect superiorly. There is similar lucency at the inferioraspect of the femoral stem. There is similar degreeof the lucency of thefemoral component at the level of the intertrochanteric and subtrochantericfemur. Bones: No fracture. Osseous manifestations of sickle cell disease.There is marked heterotopic boneformation along the superior and lateralaspect of the left acetabulum with adjacent extensive heterotopic boneformation of the greater and lesser trochanters. There is heterotopic bone formation from the lateral aspect of the superioracetabulum extending inferiorly toward the femoral neck component ofthehardware. Otherwise there is marked heterotopic bone formation involvingthe lesser trochanter andto more mild degree the greater trochanter. The overall appearance and distribution of the heterotopic heterotopic boneformation is similar to prior. Joint spaces: SI joints, symphysis pubis and lower lumbar spine are intact. Soft tissue: Circumferential edema adjacent to the left proximal femurheterotopic bone.Soft tissue prominence adjacent to the right anterior hip which mayrepresent small joint effusion. Impression:1. 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 Persistent vertical and posterior orientation of the left acetabularcomponent.3. Otherwise unchanged lucencies about bilateral hip arthroplasties asabove. Electronically Reviewed by: Chidi Dean MD, [facility]ron[facility] Reviewed on: 08/17/2019 5:21 PM I have reviewed the images and concur with the above findings. Electronically Signed by: Jason Kim MD, [facility]ron[facility] Signed on: 08/17/2019 5:28 PMInterface, Rad Results In - 08/17/2019 5:29 PM EDTCTPELVIS BONE ORTHO WITHOUT CONTRAST PROTOCOL Indication: Hip replaced, periprosthetic fracture suspected, Assess for heterotopic ossification in bilateral hip/pelvis, M25.552 Pain in left hip, G89.29 Other chronic pain, T84.84XA Pain due to internal orthopedic prosthetic devices, implants and grafts, initial encounter ([facility]). Comparison: Outside CT June 16, 2019, radiograph July 21.. Technique: Non-contrast axial images of the pelvis were acquired with 0.625 mm slice thickness. Sagittal and coronal reformatted images were created from the data, and this examination was interpreted usingthese multiplanar reconstructions. Findings: Hardware: Bilateral total hip arthroplasties. Left acetabular component has similar lucency/osteolysis greatest at the medial acetabulum. The posterior leftacetabular screw extends slightly through the posterior cortex, unchanged. The acetabular component has relative vertical and posterior location in relation to the femoral head, largely unchanged from p rior. There is similar degree of lucency about the femoral component at the level of the intertrochanteric ridge. Right hip acetabular component has similar lucency/osteolysis along the peripheral aspect superiorly. There is similar lucency at the inferior aspect of the femoral stem. There is similar degree of the lucency of the femoral component at the level of the intertrochanteric and subtrochanteric femur. Bones: No fracture. Osseous manifestations of sickle cell disease. There is marked heterotopic bone formation along the superior and lateral aspect of the left acetabulum with adjacent extensive heterotopic bone formation of the greater and lesser trochanters. There is heterotopic bone formation from the lateral aspect of the superior acetabulum extending inferiorly toward the femoral neck component of the hardware. Otherwise there is marked heterotopic bone formation involving the lesser trochanter and to more mild degree the greater trochanter. The overall appearance and distribution of the heterotopic heterotopic bone formation is similar to prior. Joint spaces: SI joints, symphysis pubis and lower lumbar spine are intact. Soft tissue: Circumferential edema adjacent to the left proximal femur heterotopic bone. Soft tissue prominence adjacent to the right anterior hip which may represent small joint effusion. Impression: 1. 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 2. Persistent vertical and posterior orientation of the left acetabular component. 3. Otherwise unchanged lucencies about bilateral hip arthroplasties as above. ElectronicallyReviewed by: Chidi Dean MD, [facility] Electronically Reviewed on: 08/17/2019 5:21 PM I have reviewed the images and concur with the above findings. Electronically Signed by: Jason Kim MD, [facility] Electronically Signed on: 08/17/2019 5:28 PMCT PELVIS BONE ORTHO WITHOUT CONTRAST [id number] 17:28:02CT PELVIS BONE ORTHO WITHOUT CONTRAST PROTOCOL Indication: Hip replaced, periprosthetic fracture suspected, Assess forheterotopic ossification in bilateral hip/pelvis, M25.552 Pain in left hip,G89.29 Other chronic pain, T84.84XA Pain due to internal orthopedicprosthetic devices, implants and grafts, initial encounter ([facility]). Comparison: Outside CT June 16, 2019, radiograph July 21.. Technique: Non-contrast axial images of the pelvis were acquired with 0.625mm slice thickness. Sagittal and coronal reformatted images were createdfrom the data, and this examination was interpreted using these multiplanarreconstructions. Findings: Hardware: Bilateral total hip arthroplasties. Left acetabular component has similar lucency/osteolysis greatest at themedial acetabulum. The posterior leftacetabular screw extends slightlythrough the posterior cortex, unchanged. The acetabular component wilcox srelative vertical and posterior location in relation to the femoral head,largely unchanged from prior. There is similar degree of lucency about thefemoral component at the level of the intertrochanteric ridge. Right hip acetabular component has similar lucency/osteolysis along theperipheral aspect superiorly. There is similar lucency at the inferioraspect of the femoral stem. There is similar degreeof the lucency of thefemoral component at the level of the intertrochanteric and subtrochantericfemur. Bones: No fracture. Osseous manifestations of sickle cell disease.There is marked heterotopic boneformation along the superior and lateralaspect of the left acetabulum with adjacent extensive heterotopic boneformation of the greater and lesser trochanters. There is heterotopic bone formation from the lateral aspect of the superioracetabulum extending inferiorly toward the femoral neck component ofthehardware. Otherwise there is marked heterotopic bone formation involvingthe lesser trochanter andto more mild degree the greater trochanter. The overall appearance and distribution of the heterotopic heterotopic boneformation is similar to prior. Joint spaces: SI joints, symphysis pubis and lower lumbar spine are intact. Soft tissue: Circumferential edema adjacent to the left proximal femurheterotopic bone.Soft tissue prominence adjacent to the right anterior hip which mayrepresent small joint effusion. Impression:1. 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 Persistent vertical and posterior orientation of the left acetabularcomponent.3. Otherwise unchanged lucencies about bilateral hip arthroplasties asabove. Electronically Reviewed by: Chidi Dean MD, [facility] Reviewed on: 08/17/2019 5:21 PM I have reviewed the images and concur with the above findings. Electronically Signed by: Jason Kim MD, [facility] Signed on: 08/17/2019 5:28 PMInterface, Rad Results In - 08/17/2019 5:29 PM EDTCTPELVIS BONE ORTHO WITHOUT CONTRAST PROTOCOL Indication: Hip replaced, periprosthetic fracture suspected, Assess for heterotopic ossification in bilateral hip/pelvis, M25.552 Pain in left hip, G89.29 Other chronic pain, T84.84XA Pain due to internal orthopedic prosthetic devices, implants and grafts, initial encounter ([facility]). Comparison: Outside CT June 16, 2019, radiograph July 21.. Technique: Non-contrast axial images of the pelvis were acquired with 0.625 mm slice thickness. Sagittal and coronal reformatted images were created from the data, and this examination was interpreted usingthese multiplanar reconstructions. Findings: Hardware: Bilateral total hip arthroplasties. Left acetabular component has similar lucency/osteolysis greatest at the medial acetabulum. The posterior leftacetabular screw extends slightly through the posterior cortex, unchanged. The acetabular component has relative vertical and posterior location in relation to the femoral head, largely unchanged from p rior. There is similar degree of lucency about the femoral component at the level of the intertrochanteric ridge. Right hip acetabular component has similar lucency/osteolysis along the peripheral aspect superiorly. There is similar lucency at the inferior aspect of the femoral stem. There is similar degree of the lucency of the femoral component at the level of the intertrochanteric and subtrochanteric femur. Bones: No fracture. Osseous manifestations of sickle cell disease. There is marked heterotopic bone formation along the superior and lateral aspect of the left acetabulum with adjacent extensive heterotopic bone formation of the greater and lesser trochanters. There is heterotopic bone formation from the lateral aspect of the superior acetabulum extending inferiorly toward the femoral neck component of the hardware. Otherwise there is marked heterotopic bone formation involving the lesser trochanter and to more mild degree the greater trochanter. The overall appearance and distribution of the heterotopic heterotopic bone formation is similar to prior. Joint spaces: SI joints, symphysis pubis and lower lumbar spine are intact. Soft tissue: Circumferential edema adjacent to the left proximal femur heterotopic bone. Soft tissue prominence adjacent to the right anterior hip which may represent small joint effusion. Impression: 1. 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 2. Persistent vertical and posterior orientation of the left acetabular component. 3. Otherwise unchanged lucencies about bilateral hip arthroplasties as above. ElectronicallyReviewed by: Chidi Dean MD, [facility] Electronically Reviewed on: 08/17/2019 5:21 PM I have reviewed the images and concur with the above findings. Electronically Signed by: Jason Kim MD, [facility] Electronically Signed on: 08/17/2019 5:28 PMREQUEST TO STORE OUTSIDE [id number] 16:25:52Please refer to the appropriate PACS to view images.X-ray hip left 2 or 3 views with or without [id number] 09:58:19LEFT HIP TWO VIEWS INCLUDING PELVIS CLINICAL INFORMATION: M25.552 Pain in left hip. COMPARISON: NoneFINDINGS/IMPRESSION: Bilateral total hip arthroplasty. Perihardware lucency surrounds the leftfemoral and acetabular components including thinning of the cortex alongthe medial acetabular the left femoral stem, concerning for loosening.Mild perihardware lucency surrounds the right femoral stem at the greatertrochanter, incompletely assessed on the current study.Extensive heterotopic ossification about the hips, right greater than left.No acute fracture or dislocation.Sacrum obscured by bowel gas. Per the [facility] note dated 08/10/2019, the ordering provider Dr. Valladares isaware of the pertinent findings of this examination. Electronically Signed by: Kirstie Rivera MD, [facility] Signed on: 08/11/2019 9:58 AMInterface, Rad Results In - 08/11/2019 9:59 AM [facility]FORM[facility]IE[facility] INCLUDING PELVIS CLINICAL INFORMATION: M25.552 Pain in left hip. COMPARISON: None FINDINGS/IMPRESSION:Bilateral total hip arthroplasty. Perihardware lucency surrounds the left femoral and acetabular components including thinning of the cortex along the medial acetabular the left femoral stem, concerning for loosening. Mild perihardware lucency surrounds the right femoral stem at the greater trochanter, incompletely assessed on the current study. Extensive heterotopic ossification about the hips, right greater than left. No acute fracture or dislocation. Sacrum obscured by bowel gas. Per the [facility] note dated 08/10/2019, the ordering provider Dr. Valladares is aware of the pertinent findings of this examination. Electronically Signed by: Kirstie Rivera MD, [facility] Electronically Signed on: 08/11/2019 9:58 AMBasic metabolic 2000 panel - Serum or [id number] 00:00:00 Test Item Value Reference Range Comments calcium (test code = calcium) 9.4 mg/dL 8.4-10.2 glucose (test code = glucose) 117 mg/dL 75-110 blood urea nitrogen (test code = blood urea 13 mg/dL 7-20 nitrogen) creatinine result (test code = creatinine 0.66 mg/dL 0.52-1 .25 result) eGFR,non (test code = eGFR,non > 60 >60 ) eGFR, (test code = eGFR, > 60 >60 new zealander) potassium (test code = potassium) 4.4 mmol/L 3.6-5.0 chloride (test code = chloride) 105 mmol/L 98-107 carbon dioxide (test code = carbon dioxide) 28 mmol/L 22-3 0 sodium (test code = sodium) 141.3 mmol/L 137-145 anion gap (test code = anion gap) 8 5-19 C reactive protein [Presence] in Serum or [id number] 00:00:00 Test Item Value Reference Range Comments C-reactive protein (test code = C-reactive 51.8 mg/L <10.0 protein) eGFR, (test code = eGFR, > 60 >60 new zealander) potassium (test code = potassium) 4.4 mmol/L 3.6-5.0 chloride (test code = chloride) 105 mmol/L 98-107 carbon dioxide (test code = carbon dioxide) 28 mmol/L 22-3 0 sodium (test code = sodium) 141.3 mmol/L 137-145 anion gap (test code = anion gap) 8 5-19 CBC w/ [id number] 00:00:00 Test Item Value Reference Range Comments white blood count (test code = white blood 16.4 10 3/uL 4.0-1 0.5 count) red blood count (test code = red blood count) 2.30 10 6/uL 4. 35-5.55 hemoglobin (test code = hemoglobin) 7.1 g/dL 13.5-17.0 hematocrit (test code = hematocrit) 20.6 % 37.9-51.0 mean corpuscular volume (test code = mean 90 fL 80-97 corpuscular volume) mean corpuscular hemoglobin (test code = mean 30.8 pg 27 .0-33.4 corpuscular hemoglobin) mean corpuscular HGB conc (test code = mean 34.4 g/dL 32.0 -36.0 corpuscular HGB conc) red cell distribution width (test code = red 16.6 % 11. 5-14.0 cell distribution width) platelet count (test code = platelet count) 308 10 3/uL 150- 450 segmented neutrophils % (auto) (test code = 82.5 % 42-7 8 segmented neutrophils % (auto)) lymphocytes % (auto) (test code = lymphocytes % 10.4 % 13-45 (auto)) monocytes % (auto) (test code = monocytes % 6.5 % 3-13 (auto)) eosinophils % (auto) (test code = eosinophils % 0.2 % 0-6 (auto)) basophils % (auto) (test code = basophils % 0.4 % 0-2 (auto)) absolute neut (auto) (test code = absolute neut 13.6 10 3/uL 1.7-8.2 (auto)) absolute lymphocytes (auto) (test code = 1.7 10 3/uL 0.5-4.7 absolute lymphocytes (auto)) absolute monocytes (auto) (test code = absolute 1.1 10 3/uL 0.1-1.4 monocytes (auto)) absolute eosinophils # (auto) (test code = 0.0 10 3/uL 0.0-0 .6 absolute eosinophils # (auto)) absolute basophils # (auto) (test code = 0.1 10 3/uL 0.0-0.2 absolute basophils # (auto)) Erythrocyte sedimentation rate by Westergren [id number] 00:00:00 Test Item Value Reference Range Comments erythrocyte sedimentation rate (test code = 90 mm/HR 0-15 erythrocyte sedimentation rate) hematocrit (test code = hematocrit) 20.6 % 37.9-51.0 mean corpuscular volume (test code = mean 90 fL 80-97 corpuscular volume) mean corpuscular hemoglobin (test code = mean 30.8 pg 27 .0-33.4 corpuscular hemoglobin) mean corpuscular HGB conc (test code = mean 34.4 g/dL 32.0 -36.0 corpuscular HGB conc) red cell distribution width (test code = red 16.6 % 11. 5-14.0 cell distribution width) platelet count (test code = platelet count) 308 10 3/uL 150- 450 segmented neutrophils % (auto) (test code = 82.5 % 42-7 8 segmented neutrophils % (auto)) lymphocytes % (auto) (test code = lymphocytes % 10.4 % 13-45 (auto)) monocytes % (auto) (test code = monocytes % 6.5 % 3-13 (auto)) eosinophils % (auto) (test code = eosinophils % 0.2 % 0-6 (auto)) basophils % (auto) (test code = basophils % 0.4 % 0-2 (auto)) absolute neut (auto) (test code = absolute neut 13.6 10 3/uL 1.7-8.2 (auto)) absolute lymphocytes (auto) (test code = 1.7 10 3/uL 0.5-4.7 absolute lymphocytes (auto)) absolute monocytes (auto) (test code = absolute 1.1 10 3/uL 0.1-1.4 monocytes (auto)) absolute eosinophils # (auto) (test code = 0.0 10 3/uL 0.0-0 .6 absolute eosinophils # (auto)) absolute basophils # (auto) (test code = 0.1 10 3/uL 0.0-0.2 absolute basophils # (auto)) [id number] 00:00:00Ordered by an unspecified provider. 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 Ojebuoboh, Ibikunle D57.1 - Anemia, unspecified D64.9 Active Ojeb uoboh, Ibikunle - Epilepsy, unspecified, intractable, Active Ojebuoboh, [place]unle without status epilepticus 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 Ojebuoboh, Ibikunle blood cell transfusions E83.111 - 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 Ojebuoboh, Ibikunle D57.1 - Anemia, unspecified D64.9 Active Ojeb uoboh, Ibikunle Low back pain Active 2018-12-20 09:19:07 Closed fracture lumbar vertebra, Active 2018-12-20 12:5 8:25 wedge Pain in bilateral legs Active 2018-12-13 09:44:47 Low back pain Active 2018-12-13 09:45:23 Closed fracture lumbar vertebra, Active 2018-12-13 11:2 9:03 wedge History of total hip arthroplasty Active 2018-12-08 10: 00:58 - Epilepsy, unspecified, intractable, Active Ojebuoboh, [place]unle without status epilepticus 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 Ojebuoboh, Ibikunle blood cell transfusions E83.111 - 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 Ojebuoboh, Ibikunle D57.1 - Anemia, unspecified D64.9 Active Ojeb uoboh, Ibikunle Pain in bilateral legs Active 2018-12-01 10:34:05 Hip pain Active 2018-12-01 10:34:27 History of total hip arthroplasty Active 2018-12-01 11: 47:03 Hip pain Active 2018-10-18 09:29:45 History of total hip arthroplasty Active 2018-10-18 09: 50:43 - Epilepsy, unspecified, intractable, Active Ojebuoboh, [place]unle without status epilepticus 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 Ojebuoboh, Ibikunle blood cell transfusions E83.111 - 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 Ojebuoboh, Ibikunle D57.1 - Anemia, unspecified D64.9 Active Ojeb uoboh, [place]unle Hip pain Active 2018-09-06 09:20:56 History of total hip arthroplasty Active 2018-09-06 10: 38:47 Intertrochanteric fracture Active 2018-06-22 11:08:00 Hip pain Active 2018-06-22 09:54:26 Chronic pain syndrome Active 2018-05-24 12:10:46 Pain in right knee Active 2018-05-24 12:02:38 Hip pain Active 2018-05-24 12:02:38 Medication monitoring Active 2018-05-24 12:19:19 Pain in right knee Active 2018-05-10 09:21:30 Hip pain Active 2018-05-10 09:21:42 - Pressure ulcer of sacral region, Active Ojebuoboh, Ibikunle stage 1 L89.151 - Moderate protein-calorie Active Ojebu oboh, Ibikunle malnutrition E44.0 - 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 Ojebuoboh, Ibikunle D57.1 - Pyogenic arthritis, unspecified Active Ojebuoboh, [place]unle M00.9 - Leukemoid reaction D72.823 Active Oje buoboh, Ibikunle - Sepsis, unspecified organism A41.9 Active Ojebuoboh, Ib[place]unle - Acute kidney failure, unspecified Active Ojebuoboh, Ibikunle N17.9 - 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 Ojebuoboh, Ibikunle D57.1 - Displaced intertrochanteric Active Oj ebuoboh, [place]unle fracture of left femur, subsequent encounter for closed fracture with routine healing 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 Ojebuoboh, [place]unle blood loss (chronic) 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, Active Oje buoboh, Ibikunle unspecified D57.00 - Hb-SS disease with crisis, Active Oje buoboh, Ibikunle unspecified D57.00 - Encounter for preprocedural Active Oj ebuoboh, Ibikunle cardiovascular examination Z01.810 - Diarrhea, unspecified R19.7 Active Oj ebuoboh, [place]unle - 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 Ojebuoboh, Ibikunle D57.1 - 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 Ojebuoboh, Ibikunle D57.1 - Displaced intertrochanteric Active Oj ebuoboh, [place] fracture of left femur, initial encounter for closed fracture S72.142A - Nontraumatic intracerebral Active Oje buoboh, [place]unle hemorrhage, unspecified I61.9 - Epilepsy, unspecified, intractable, Active Ojebuoboh, [place] without status epilepticus 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 Ojebuoboh, Ib[place]unle elsewhere 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, [place] 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 Ojebuoboh, [place] blood cell transfusions E83.111 - sickle cell disease,unspecified Active Ojebuoboh, Ibikunle 282.60 - Epilepsy 345.90 Active Ojebuoboh, Ibi estephanie - 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 Ojebuoboh, [place]unle - Sickle-cell disease, unspecified Active Ojebuoboh, [place]unle 282.60 - Sickle-cell disease, unspecified Active Ojebuoboh, Ibikunle 282.60 - 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 Ojebuoboh, Ib[place]unle - Intracerebral hemorrhage 431 Active O jebuoboh, [place]unle Infection associated with internal Unknown left hip prosthesis, subsequent encounter Infection associated with internal Unknown left hip prosthesis, subsequent encounter Infection associated with internal Unknown left hip prosthesis, subsequent encounter Infection of L prosthetic hip joint, Unknown subsequent encounter MSSA (methicillin susceptible Unknown Staphylococcus aureus) infection Infection associated with internal Unknown left hip prosthesis, subsequent encounter Infection associated with internal Unknown left hip prosthesis, subsequent encounter Cognitive impairment Unknown Decreased mobility Unknown Heterotopic ossification Unknown Lives in long-term care facility Unknown 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 ([facility]) Traumatic hemorrhage of cerebrum with Unknown loss of consciousness, unspecified laterality, subsequent encounter Cerebrovascular accident (CVA), Unknown unspecified mechanism ([facility]) Infection associated with internal Unknown left hip prosthesis, subsequent encounter Infection associated with internal Unknown left hip prosthesis, subsequent encounter 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 ([facility]) Infection associated with internal Unknown left hip prosthesis, subsequent encounter Mechanical loosening of internal left Unknown hip prosthetic joint, initial encounter ([facility]) Decreased mobility Unknown Sickle cell anemia ([facility]) Unknown CVA (cerebral vascular accident) Unknown ([facility]) Encounters Start End Encounter Admission Attending Care Care Encounter Date/Time Date/Time Type Type Clinicians Facility Department ID 2020-07-22 Inpatient [facility] [id number] 12:35:23 2020-07-21 Inpatient [facility] [id number] 19:47:05 2020-09-13 2020-09-13 Outpatient VAL OLGUIN [facility] [id number] 09:12:57 11:20:42 ASYA 2020-09-13 2020-09-13 Outpatient VAL LOPEZ [facility] [id number] 09:13:50 09:13:50 THORSTEN 2020-09-13 2020-09-13 Outpatient VAL LOPEZ [facility] [id number] 09:12:26 09:12:26 THORSTEN 2020-09-13 2020-09-13 Outpatient [facility] [id number] 00:00:00 00:00:00 2020-09-06 2020-09-06 Outpatient [facility] [id number] 00:00:00 00:00:00 2020-09-06 2020-09-06 Outpatient [facility] [id number] 00:00:00 00:00:00 2020-09-05 2020-09-05 Outpatient ISABELL, [facility] [id number] 13:01:47 13:01:47 PEG 2020-09-05 2020-09-05 Outpatient [facility] [id number] 00:00:00 00:00:00 2020-08-26 2020-08-26 Outpatient [facility] [id number] 00:00:00 00:00:00 rn [facility] [place] 2020-08-15 2020-08-15 Outpatient [facility] [id number] 00:00:00 00:00:00 2020-08-15 2020-08-15 Outpatient [facility] [id number] 00:00:00 00:00:00 rn [facility] [place] 2020-08-09 2020-08-09 Outpatient [facility] [id number] 10:14:54 10:14:54 HUBERT 2020-08-09 2020-08-09 Outpatient MARISOL[facility] [id number] 10:13:53 10:13:53 ASHLI 2020-08-07 2020-08-07 Deepakt, Mrs. Zuluaga, [facility] [id number] 00:00:00 00:00:00 Myrna Bailey rn [facility] [place] 2020-07-21 2020-07-26 [place] [id number] 12:53:00 16:51:00 MARGARET 2020-07-21 2020-07-21 Outpatient [facility] [id number] 00:00:00 00:00:00 rn [facility] [place] 2020-07-19 2020-07-19 Outpatient [facility] [id number] 00:00:00 00:00:00 2020-07-18 2020-07-18 Emergency TOPHER ABBASI [facility] [id number] 12:21:00 18:44:00 2020-07-18 2020-07-18 Outpatient [facility] [id number] 00:00:00 00:00:00 2020-07-17 2020-07-17 Outpatient VAL RESTREPO [facility] [id number] 00:00:00 23:59:00 HERNÁNENOCH 2020-07-16 2020-07-16 [facility]patient [facility] [id number] 09:00:00 09:00:00 2020-07-10 2020-07-10 Outpatient [facility] [id number] 00:00:00 00:00:00 2020-06-27 2020-06-27 Outpatient [facility] [id number] 10:20:08 10:20:08 2020-06-27 2020-06-27 Outpatient KAITLYNN MARTIN [facility] [id number] 09:11:05 09:11:05 2020-06-25 2020-06-25 Outpatient Greyson Ambrocio [id number] 00:00:00 00:00:00 rn [facility] [place] 2020-06-24 2020-06-24 Outpatient Greyson Ambrocio [id number] 00:00:00 00:00:00 rn [facility] [place] 2020-06-20 2020-06-20 Outpatient [facility] [id number] 00:00:00 00:00:00 2020-05-28 2020-05-28 Outpatient Greyson Ambrocio [id number] 00:00:00 00:00:00 rn [facility] [place] 2020-05-23 2020-05-23 Outpatient Greyson Ambrocio [id number] 00:00:00 00:00:00 [facility]n [facility] [place] 2020-05-13 2020-05-13 Outpatient Greyson Ambrocio [id number] 00:00:00 00:00:00 rn [facility] [place] 2020-04-02 2020-04-02 Outpatient AsaadGreyson [id number] 00:00:00 00:00:00 Lynn rn [facility] [place] 2020-03-19 2020-03-19 Outpatient Greyson Ambrocio [id number] 00:00:00 00:00:00 rn [facility] [place] 2020-03-11 2020-03-11 Outpatient Greyson Ambrocio [id number] 00:00:00 00:00:00 rn [facility] [place] 2020-03-06 2020-03-06 Outpatient Greyson Ambrocio [id number] 00:00:00 00:00:00 rn [facility] [place] 2020-02-21 2020-02-21 Outpatient [facility] [id number] 00:00:00 00:00:00 rn [facility] [place] 2020-02-13 2020-02-13 Outpatient DUHS DU [id number] 00:00:00 00:00:00 2020-01-18 2020-01-18 Outpatient VAL KHAN DU [id number] 12:51:46 12:51:46 AUGUSTUS 2020-01-09 2020-01-09 [facility]00 Alda Bailey rn [facility] [place] 2020-01-05 2020-01-05 Outpatient [facility] [id number] 00:00:00 00:00:00 rn [facility] [place] 2020-01-04 2020-01-04 Outpatient YURY PARRA DU DU 21 [id number] 10:04:48 10:04:48 2020-01-04 2020-01-04 Outpatient DUHS DU [id number] 00:00:00 00:00:00 2019-12-19 2019-12-19 Outpatient DUHS DU [id number] 00:00:00 00:00:00 2019-12-18 2019-12-18 Outpatient [facility] [id number] 00:00:00 00:00:00 rn [facility] [place] 2019-12-18 2019-12-18 Outpatient DUHS DU [id number] 00:00:00 00:00:00 2019-12-15 2019-12-15 Outpatient DUHS DUHS [id number] 00:00:00 00:00:00 2019-12-14 2019-12-14 Outpatient DUHS DUHS [id number] 00:00:00 00:00:00 2019-12-12 2019-12-12 Outpatient KAITLYNN MARTIN DU DU 21 [id number] 12:44:08 12:44:08 2019-12-11 2019-12-11 Outpatient DUHS DUHS [id number] 00:00:00 00:00:00 2019-12-06 2019-12-06 Outpatient [facility] [id number] 00:00:00 00:00:00 rn [facility] [place] 2019-11-27 2019-12-01 Inpatient VAL KHAN YFNJORGE [id number] 09:25:15 13:06:00 AUGUSTUS 2019-11-27 2019-11-27 Outpatient VAL YFNJORGE [id number] 12:40:00 12:40:00 2019-11-24 2019-11-24 Outpatient VAL NEAL [id number] 00:00:00 00:00:00 2019-11-10 2019-11-10 Outpatient VAL SAMANO YFNJORGE [id number] 07:46:12 08:58:43 ASYA 2019-11-10 2019-11-10 [facility] [id number] [facility]:00 00:00:00 Lnyn parikh [facility] [place] 2019-11-04 2019-11-04 Outpatient [facility] [id number] 00:00:00 00:00:00 rn [facility] [place] 2019-10-19 2019-10-19 Outpatient [facility] [id number] 00:00:00 00:00:00 rn [facility] [place] 2019-10-18 2019-10-18 Outpatient [facility] [id number] 00:00:00 00:00:00 rn [facility] [place] 2019-10-17 2019-10-17 [facility] [id number] 00:00:00 00:00:00 Lynn Bailey rn [facility] [place] 2019-10-06 2019-10-06 Outpatient [facility] [id number] 00:00:00 00:00:00 rn [facility] [place] 2019-09-18 2019-09-18 Outpatient [facility] [id number] 00:00:00 00:00:00 rn [facility] [place] 2019-09-14 2019-09-14 Outpatient VAL VAL [id number] 00:00:00 00:00:00 2019-09-05 2019-09-05 Outpatient [facility] [id number] 00:00:00 00:00:00 rn [facility] [place] 2019-08-31 2019-08-31 Outpatient VAL KHAN VAL [id number] 10:14:06 10:14:06 AUGUSTUS 2019-08-18 2019-08-18 Outpatient ERIN YFNJORGE YFN [id number] 08:15:05 08:15:05 AUGUSTUS 2019-08-17 2019-08-17 Outpatient VAL KHAN [id number] 15:39:15 15:39:15 AUGUSTUS 2019-08-17 2019-08-17 Outpatient VAL NEAL [id number] 00:00:00 00:00:00 2019-08-17 2019-08-17 Outpatient VAL NEAL [id number] 00:00:00 00:00:00 2019-08-17 2019-08-17 Outpatient DUJORGE NEAL [id number] 00:00:00 00:00:00 2019-08-10 2019-08-10 Outpatient VAL KHAN [id number] 18:38:08 18:38:08 AUGUSTUS 2019-08-10 2019-08-10 Outpatient VAL NEAL [id number] 10:33:14 10:33:14 2019-08-10 2019-08-10 Outpatient VAL KHAN [id number] 09:18:24 09:18:24 AUGUSTUS 2019-08-10 2019-08-10 Outpatient VAL NEAL [id number] 00:00:00 00:00:00 2019-08-10 2019-08-10 Outpatient VAL NEAL [id number] 00:00:00 00:00:00 2019-08-07 2019-08-07 Outpatient VAL NEAL [id number] 00:00:00 00:00:00 2019-07-05 2019-07-05 Outpatient Jr. Adilson, [facility] 5 [id number] 08:45:00 08:45:00 [facility] [id number] \\T\\ Sports [id number] [facility] [id number] 2019-06-23 2019-06-23 Outpatient [facility] [id number] 00:00:00 00:00:00 rn Medical Medical Oncology Oncology [facility] 2019-06-20 2019-06-20 Outpatient [facility] [id number] 00:00:00 00:00:00 rn Medical Medical Oncology Oncology [facility] 2019-04-24 2019-04-24 Outpatient [facility] [id number] 00:00:00 00:00:00 rn Medical Medical Oncology Oncology [facility] 2019-04-09 2019-04-09 [facility] [id number] 00:00:00 00:00:00 Longterm 2019-02-05 2019-02-05 [facility] [id number] 00:00:00 00:00:00 Nursing Longterm Home 2018-12-20 2018-12-20 Paul Felixeret [id number] 00:00:00 00:00:00 [facility] [id number] MD [facility] [address], [place] [address], Ph. 2018-12-13 2018-12-13 Paul Felixeret [id number] 00:00:00 00:00:00 [facility] [id number] MD [facility] [address], [address], [place] [address], Ph. 2018-12-08 2018-12-08 Paul Millert [id number] 00:00:00 00:00:00 [facility] [id number] MD [facility] [address], [place] [address], Ph. 2018-12-04 2018-12-04 [facility] [id number] 00:00:00 00:00:00 Nursing Longterm Home 2018-12-01 2018-12-01 Paul Felixereponce [place] [id number] 00:00:00 00:00:00 [facility] [id number] MD [facility] [address], [address], [place] [address], Ph. 2018-10-18 2018-10-18 Pauljaye Millert [id number] 00:00:00 00:00:00 [facility] [id number] MD [facility] [address], [address], [place] [address], Ph. 2018-10-04 2018-10-04 [facility] [id number] 00:00:00 00:00:00 PA PA 2018-10-02 2018-10-02 [facility] [id number] 00:00:00 00:00:00 PA PA 2018-09-21 2018-09-21 [facility] [id number] 00:00:00 00:00:00 PA PA 2018-09-06 2018-09-06 Paul Felixeret [id number] 00:00:00 00:00:00 Akira Surgical Surgical [id number] MD [facility] [address], [place] [address], Ph. 2018-08-02 2018-08-02 Outpatient [facility] [id number] 00:00:00 00:00:00 rn [facility] [place] 2018-07-25 2018-07-25 [facility] [id number] 00:00:00 00:00:00 PA PA 2018-06-27 2018-06-27 [facility] [id number] 00:00:00 00:00:00 PA PA 2018-06-22 2018-06-22 Outpatient [facility] [id number] 00:00:00 00:00:00 [facility] [place] 2018-06-22 2018-06-22 Paul Dorchesteranthony Felixeret [id number] 00:00:00 00:00:00 [facility] Surgical [id number] MD [facility] [address], [place] [address], Ph. 2018-05-24 2018-05-24 Farhat Felixeret [id number] 00:00:00 00:00:00 MD Arabella: Surgical Surgical [id number] 2145 [facility] [address] [facility], [place] [address], Ph. 2018-05-10 2018-05-10 Paul Felixeret [id number] 00:00:00 00:00:00 [facility] Surgical [id number] MD [facility] [address], [address], [place] [address], Ph. 2018-05-05 2018-05-05 [facility] [id number] 00:00:00 00:00:00 PA PA 2018-05-05 2018-05-05 [facility] [id number] 00:00:00 00:00:00 PA PA 2018-04-10 2018-04-10 [facility] [id number] 00:00:00 00:00:00 Nursing Longterm Home 2018-03-01 2018-03-01 [facility] [id number] 00:00:00 00:00:00 PA PA 2018-02-23 2018-02-23 [facility] [id number] 00:00:00 00:00:00 PA PA 2018-02-07 2018-02-07 [facility] [id number] 00:00:00 00:00:00 PA PA 2018-01-30 2018-01-30 [facility] [id number] 00:00:00 00:00:00 Nursing Longterm Home 2018-01-27 2018-01-27 [facility] [id number] 00:00:00 00:00:00 PA PA 2018-01-05 2018-01-05 [facility] [id number] 00:00:00 00:00:00 PA PA 2017-12-27 2017-12-27 [facility] [id number] 00:00:00 00:00:00 PA PA 2017-12-12 2017-12-12 [facility] [id number] 00:00:00 00:00:00 Nursing Longterm Home 2017-11-03 2017-11-03 [facility] [id number] 00:00:00 00:00:00 PA PA 2017-09-06 2017-09-06 [facility] [id number] 00:00:00 00:00:00 PA PA 2017-08-30 2017-08-30 [facility] [id number] 00:00:00 00:00:00 PA PA 2017-08-25 2017-08-25 [facility] [id number] 00:00:00 00:00:00 PA PA 2017-05-07 2017-05-07 [facility] [id number] 00:00:00 00:00:00 PA PA 2017-04-04 2017-04-04 [facility] [id number] 00:00:00 00:00:00 Nursing Longterm Home 2017-04-02 2017-04-02 [facility] [id number] 00:00:00 00:00:00 PA PA 2017-03-23 2017-03-23 [facility] [id number] 00:00:00 00:00:00 PA PA 2015-07-10 2015-07-10 [facility] [id number] 00:00:00 00:00:00 PA PA 2014-08-03 2014-08-03 [facility] [id number] 00:00:00 00:00:00 PA PA 2014-07-24 2014-07-24 [facility] [id number] 00:00:00 00:00:00 PA PA 2014-07-13 2014-07-13 [facility] [id number] 00:00:00 00:00:00 PA PA 2014-07-10 2014-07-10 [facility] [id number] 00:00:00 00:00:00 PA PA 2014-06-15 2014-06-15 [facility] [id number] 00:00:00 00:00:00 PA PA Immunizations Ordered Immunization Filled Immunization Date Status Commen ts Refusal Reason Name Name Influenza, IM 2019-08-15 Completed unspecified 00:00:00 influenza, 2018-08-01 Completed unspecified 00:00:00 formulation Plan of Treatment Planned Activity Planned Date Details Comments Future Scheduled Test [code = ] Future Scheduled Test [code = ] Future Scheduled Test [code = ] Future Scheduled Test [code = ] Future Scheduled Test [code = ] Future Scheduled Test [code = ] Future Scheduled Test [code = ] Future Scheduled Test [code = ] Future Scheduled Test [code = ] Future Scheduled Test [code = ] Future Scheduled Test [code = ] Future Scheduled Test [code = ] Future Scheduled Test [code = ] Future Scheduled Test [code = ] Future Scheduled Test [code = ] Future Scheduled Test [code = ] Future Scheduled Test [code = ] Future Scheduled Test [code = ] Future Scheduled Test [code = ] Future Scheduled Test [code = ] Future Scheduled Test [code = ] Future Scheduled Test [code = ] Future Scheduled Test [code = ] Future Scheduled Test [code = ] Future Scheduled Test [code = ] Future Scheduled Test [code = ] Future Scheduled Test [code = ] Future Scheduled Test [code = ] Future Scheduled Test [code = ] Future Scheduled Test [code = ] Future Scheduled Test [code = ] Future Scheduled Test [code = ] Future Scheduled Test [code = ] Future Scheduled Test [code = ] Future Scheduled Test [code = ] Future Scheduled Test [code = ] Future Scheduled Test [code = ] Future Scheduled Test [code = ] Future Scheduled Test [code = ] Future Scheduled Test [code = ] Future Scheduled Test [code = ] Future Scheduled Test [code = ] Future Scheduled Test [code = ] Future Scheduled Test [code = ] Future Scheduled Test [code = ] Future Scheduled Test [code = ] Future Scheduled Test [code = ] Future Scheduled Test [code = ] Future Scheduled Test [code = ] Future Scheduled Test [code = ] Future Scheduled Test [code = ] Future Scheduled Test [code = ] Future Scheduled Test [code = ] Future Scheduled Test [code = ] Future Scheduled Test [code = ] Future Scheduled Test [code = ] Future Scheduled Test [code = ] Future Scheduled Test [code = ] Future Scheduled Test [code = ] Future Scheduled Test [code = ] Future Scheduled Test [code = ] Future Scheduled Test [code = ] Future Scheduled Test [code = ] Future Scheduled Test [code = ] Future Scheduled Test [code = ] Future Scheduled Test [code = ] Future Scheduled Test [code = ] Future Scheduled Test [code = ] Future Scheduled Test [code = ] Future Scheduled Test [code = ] Future Scheduled Test [code = ] Future Scheduled Test [code = ] Future Scheduled Test [code = ] Future Scheduled Test [code = ] Future Scheduled Test [code = ] Future Scheduled Test [code = ] Future Scheduled Test [code = ] Future Scheduled Test [code = ] Future Scheduled Test [code = ] Future Scheduled Test [code = ] Future Scheduled Test [code = ] Future Scheduled Test [code = ] Future Scheduled Test [code = ] Future Scheduled Test [code = ] Future Scheduled Test [code = ] Future Scheduled Test [code = ] Future Scheduled Test [code = ] Future Scheduled Test [code = ] Future Scheduled Test [code = ] Future Scheduled Test [code = ] Future Scheduled Test [code = ] Future Scheduled Test [code = ] Future Scheduled Test [code = ] Future Scheduled Test [code = ] Future Scheduled Test [code = ] Future Scheduled Test [code = ] Future Scheduled Test [code = ] Future Scheduled Test [code = ] Future Scheduled Test [code = ] Future Scheduled Test [code = ] Future Scheduled Test [code = ] Future Scheduled Test [code = ] Future Scheduled Test [code = ] Future Scheduled Test [code = ] Future Scheduled Test [code = ] Future Scheduled Test [code = ] Future Scheduled Test [code = ] Future Scheduled Test [code = ] Future Scheduled Test [code = ] Future Scheduled Test [code = ] Future Scheduled Test [code = ] Future Scheduled Test [code = ] Future Scheduled Test [code = ] Future Scheduled Test [code = ] Future Scheduled Test [code = ] Future Scheduled Test [code = ] Future Scheduled Test [code = ] Future Scheduled Test [code = ] Future Scheduled Test [code = ] Future Appointment 2020-10-11 09:00:00 Future Appointment 2020-10-11 09:00:00 Social History Social Habit Start Date Stop Date Comments History SDOH Alcohol Std Drinks History SDOH Alcohol Binge Exposure to SARS-CoV-2 (event) Alcohol intake 2020-09-13 00:00:00 2020-09-13 00:00:00 Tobacco use and exposure 2020-09-13 00:00:00 2020-09-13 00:00:00 History SDOH Alcohol Frequency 2019-08-10 00:00:00 2019-08-10 00 :00:00 Smoking Status Start Date Stop Date Never 2020-08-07 00:00:00 Social History Observation Description Sex Male Vital Signs Vital Name Observation Time Observation Value Comments Systolic blood pressure 2020-09-13 09:45:00 106 mm[Hg] Diastolic blood pressure 2020-09-13 09:45:00 71 mm[Hg] Heart rate 2020-09-13 09:45:00 83 /min Body temperature 2020-09-13 09:45:00 37.06 Maria Alejandra Body height 2020-09-13 09:45:00 188 cm Body weight 2020-09-13 09:45:00 61.236 kg BMI 2020-09-13 09:45:00 17.33 kg/m2 Systolic blood pressure 2020-09-13 09:47:00 106 mm[Hg] Diastolic blood pressure 2020-09-13 09:47:00 71 mm[Hg] Heart rate 2020-09-13 09:47:00 83 /min Body temperature 2020-09-13 09:47:00 37.06 Maria Alejandra Body height 2020-09-13 09:47:00 188 cm Body weight 2020-09-13 09:47:00 61.236 kg BMI 2020-09-13 09:47:00 17.33 kg/m2 Systolic blood pressure 2020-09-05 13:16:00 101 mm[Hg] Diastolic blood pressure 2020-09-05 13:16:00 68 mm[Hg] Heart rate 2020-09-05 13:16:00 81 /min Body temperature 2020-09-05 13:16:00 36.72 Maria Alejandra Respiratory rate 2020-09-05 13:16:00 18 /min Oxygen saturation in Arterial blood by 2020-09-05 13:16:00 97 % Pulse oximetry Systolic blood pressure 2020-08-09 10:23:00 119 mm[Hg] Diastolic blood pressure 2020-08-09 10:23:00 74 mm[Hg] Heart rate 2020-08-09 10:23:00 104 /min Body temperature 2020-08-09 10:23:00 38.11 Maria Alejandra Respiratory rate 2020-08-09 10:23:00 18 /min Body height 2020-08-09 10:23:00 188 cm Body weight 2020-08-09 10:23:00 61.3 kg BMI 2020-08-09 10:23:00 17.35 kg/m2 Systolic blood pressure 2020-08-09 10:22:00 119 mm[Hg] Diastolic blood pressure 2020-08-09 10:22:00 74 mm[Hg] Heart rate 2020-08-09 10:22:00 104 /min Body temperature 2020-08-09 10:22:00 38.11 Maria Alejandra Respiratory rate 2020-08-09 10:22:00 18 /min Body height 2020-08-09 10:22:00 188 cm Body weight 2020-08-09 10:22:00 61.3 kg BMI 2020-08-09 10:22:00 17.35 kg/m2 Systolic blood pressure 2020-07-26 09:34:00 113 mm[Hg] Diastolic blood pressure 2020-07-26 09:34:00 71 mm[Hg] Heart rate 2020-07-26 09:34:00 98 /min Body temperature 2020-07-26 00:12:00 36.28 Maria Alejandra Respiratory rate 2020-07-26 00:12:00 16 /min Oxygen saturation in Arterial blood by 2020-07-26 00:12:00 98 % Pulse oximetry Body height 2020-07-21 12:34:00 188 cm Systolic blood pressure 2020-06-27 09:55:00 104 mm[Hg] Diastolic blood pressure 2020-06-27 09:55:00 67 mm[Hg] Heart rate 2020-06-27 09:55:00 108 /min Body weight 2020-06-27 09:55:00 61.3 kg BMI 2020-06-27 09:55:00 17.35 kg/m2 Systolic blood pressure 2020-01-04 10:26:00 117 mm[Hg] Diastolic blood pressure 2020-01-04 10:26:00 73 mm[Hg] Heart rate 2020-01-04 10:26:00 81 /min Body temperature 2020-01-04 10:26:00 36.94 Maria Alejandra Body weight 2020-01-04 10:26:00 61.3 kg BMI 2020-01-04 10:26:00 17.35 kg/m2 Oxygen saturation in Arterial blood by 2020-01-04 10:26:00 97 % Pulse oximetry Systolic blood pressure 2019-12-12 13:04:00 105 mm[Hg] Diastolic blood pressure 2019-12-12 13:04:00 71 mm[Hg] Heart rate 2019-12-12 13:04:00 97 /min Body temperature 2019-12-12 13:04:00 36.61 Maria Alejandra Body height 2019-12-12 13:04:00 188 cm Body weight 2019-12-12 13:04:00 63.05 kg BMI 2019-12-12 13:04:00 17.85 kg/m2 Systolic blood pressure 2019-12-01 11:57:00 112 mm[Hg] Diastolic blood pressure 2019-12-01 11:57:00 63 mm[Hg] Heart rate 2019-12-01 11:57:00 106 /min Body temperature 2019-12-01 11:57:00 37 Maria Alejandra Respiratory rate 2019-12-01 11:57:00 18 /min Oxygen saturation in Arterial blood by 2019-12-01 11:57:00 98 % Pulse oximetry Body height 2019-11-27 12:47:00 188 cm Body weight 2019-11-27 12:47:00 51.71 kg BMI 2019-11-27 12:47:00 14.64 kg/m2 Systolic blood pressure 2019-11-10 07:59:00 109 mm[Hg] Diastolic blood pressure 2019-11-10 07:59:00 72 mm[Hg] Heart rate 2019-11-10 07:59:00 100 /min Body temperature 2019-11-10 07:59:00 37.11 Maria Alejandra Body height 2019-11-10 07:59:00 188 cm Body weight 2019-11-10 07:59:00 53.071 kg BMI 2019-11-10 07:59:00 15.02 kg/m2 Oxygen saturation in Arterial blood by 2019-11-10 07:59:00 95 % Pulse oximetry Systolic blood pressure 2019-08-31 11:41:00 107 mm[Hg] Diastolic blood pressure 2019-08-31 11:41:00 74 mm[Hg] Heart rate 2019-08-31 11:41:00 88 /min Body height 2019-08-31 11:41:00 188 cm Body weight 2019-08-31 11:41:00 46 kg BMI 2019-08-31 11:41:00 13.01 kg/m2 Systolic blood pressure 2019-08-10 10:51:00 98 mm[Hg] Diastolic blood pressure 2019-08-10 10:51:00 65 mm[Hg] Heart rate 2019-08-10 10:51:00 105 /min Body height 2019-08-10 10:51:00 188 cm Body weight 2019-08-10 10:51:00 45.995 kg BMI 2019-08-10 10:51:00 13.02 kg/m2 height 2019-04-09 08:45:00 74 [in_us] weight 2019-04-09 08:45:00 109.4 [lb_av] bmi 2019-04-09 08:45:00 14.04 kg/m2 heart rate 2019-04-09 08:45:00 74 /min blood pressure systolic 2019-04-09 08:45:00 102 mm[Hg] blood pressure diastolic 2019-04-09 08:45:00 60 mm[Hg] Height 2018-12-20 00:00:00 74 [in_i] BMI (Body Mass Index) 2018-12-20 00:00:00 16 kg/m2 Body Weight 2018-12-20 00:00:00 125 [lb_av] BP Diastolic 2018-05-24 00:00:00 60 mm[Hg] Height 2018-05-24 00:00:00 74 [in_i] BMI (Body Mass Index) 2018-05-24 00:00:00 16.7 kg/m2 BP Systolic 2018-05-24 00:00:00 101 mm[Hg] Body Weight 2018-05-24 00:00:00 130 [lb_av] Height 2018-12-13 00:00:00 74 [in_i] BMI (Body Mass Index) 2018-12-13 00:00:00 16 kg/m2 Body Weight 2018-12-13 00:00:00 125 [lb_av] BP Diastolic 2018-12-08 00:00:00 63 mm[Hg] Height 2018-12-08 00:00:00 74 [in_i] BMI (Body Mass Index) 2018-12-08 00:00:00 16 kg/m2 BP Systolic 2018-12-08 00:00:00 86 mm[Hg] Body Weight 2018-12-08 00:00:00 125 [lb_av] Height 2018-12-01 00:00:00 74 [in_i] BMI 2020-01-09 14:38:51 14.5600 BP marvin 2020-01-09 14:38:51 63.0000 mm[Hg] Bdy height 2020-01-09 14:38:51 74.4000 [in_i] SaO2% BldA PulseOx 2020-01-09 14:38:51 99.0000 % Heart rate 2020-01-09 14:38:51 84.0000 /min Resp rate 2020-01-09 14:38:51 17.0000 /min BP sys 2020-01-09 14:38:51 128.0000 mm[Hg] Body temperature 2020-01-09 14:38:51 96.7000 [degF] Weight 2020-01-09 14:38:51 114.6000 [lb_av] Body temperature 2019-10-17 14:43:21 97.7000 [degF] Weight 2019-10-17 14:43:21 113.8000 [lb_av] BMI 2019-10-17 14:43:21 14.4500 BP marvin 2019-10-17 14:43:21 57.0000 mm[Hg] Bdy height 2019-10-17 14:43:21 74.4000 [in_i] SaO2% BldA PulseOx 2019-10-17 14:43:21 96.0000 % Heart rate 2019-10-17 14:43:21 89.0000 /min Resp rate 2019-10-17 14:43:21 17.0000 /min BP sys 2019-10-17 14:43:21 93.0000 mm[Hg] Hospital Discharge Instructions Patient Instructions Asya Olguin MD - 09/13/2020 10:00 AM EST Welcome to [facility]! Thank you for choosing the [facility]. We are excited to get to know you and hope that your experience with us is outstanding. Here are a few things you should know about our clinic. Your provider is Dr. Asya Olguin Following this visit you should stop by - the lab for bloodwork Dr. Olguni will touch base with you once your results have returned. If you are able to set up [employer] account this is the easiest way to communicate with her directly. Continue cephalexin 500gm four times a day Follow up: You are scheduled to follow up in 4 weeks What to Watch for: When you stop your antibiotics please monitor for the following signs and symptoms that may suggest the infection is returning or not completely cleared. It will be important to monitor your temperature with aninexpensive thermometer several times a day. One temperature should be measured between 4 and 8 PM as this is when most individuals have the highest temperature of the day. Contact Dr Olguin for thefollowin. Temperature>100.5 2. One episode of a hard shaking chill that is uncontrollable andlasts 5-15 minutes 3. Increased drainage from wound or site of previous infection 4. Increased redness or warmth from wound or site of previous infection 5. Progressive pain at site of previous infection out of proportion to activity. In patients that have had a serious infection it is not uncommon tohave good days and bad days and even within a day to have good periods and bad periods. Pain may increase with increased activity but should resolve when rested and the affected region is elevated. If pain is worsening and does not improve with rest and is progressive over several days please contact Dr. Olguin. Clinic Information and Phone Numbers: ? The clinic is open 8am-5pm, Wednesday through and 8am-12pm on Wednesday. ? Visits are by appointment only. (no walk-in appointments) ? To cancelor reschedule an appointment, please call . ? Prescription refills: ? Ask your pharmacy to fax a refill request to . ? You can also call the Triage Line [phone] to request a refill. ? Refills will generally be processed within 2 business days of receipt. ? Prescriptions for controlled substances must be either personally picked up at the clinic or (If prearranged with the provider) will be mailed to a designated mailing address. ? Please request refills at least aweek before your medication will run out so there is no interruption. ? Medical Questions of Problems ? For non-urgent issues, please call the Triage Line . ? You may be asked to leave a voice mail, Please leave your FULL NAME, [facility] number or Date of , a brief statement of your issue, and a phone number at which you can be reached. ? Calls will generally be returned within 2 business days. ? For urgent but non- emergency issues, please have your provider paged by calling and tell them that you would like Dr. Olguin to be paged ? For emergencies, plea se call [phone] or go to the nearest emergency room. ? Let your provider know the names and contact information for all other healthcare providers whom you see. This way we can make sure that all of your providers are up to date on your care. ? Make sure that your other providers know that you are a patient in our clinic, and ask them to fax copies of their records to after each visit. ? Please bring either all of you medications or an up-to-date- list of the medications you are taking toeach appointment. ? Request for copies of your [facility] should be sent to [facility], [address], [place] [address]. DO NOT mail these to your physician. ? You can make appointme nts and view your laboratory results on line at documented in this encounterPatient Instructions Ashli Bundy MD - 08/09/2020 11:00 AM EDTContinue IV cefazolin until September 05, 2020. When IV antibiotics are completed his PICC line may be removed. On September 06, 2020 begin cephalexin 500 mg p.o. every 6 hours for 6 weeks. He will discontinue his oral cephalexin on October 20, 2020. Patient should keep his current Aquasol dressing on for 7 days. At the end of7 days, this dressing may be removed and his wound may be left open to the air. Please add a sed rate and C-reactive protein to his weekly labs while he is on IV antibiotics. Please fax all results to [phone]. When you stop your antibiotics please monitor for the following signs and symptoms thatmay suggest the infection is returning or not completely cleared. It will be important to monitor your temperature with an inexpensive thermometer several times a day. One temperature should be measured between 4 and 8 PM as this is when most individuals have the highest temperature of the day. Contact Dr Bundy for the followin. Temperature>100.5 2. One episode of a hard shaking chill that is uncontrollable and lasts 5-15 minutes 3. Increased drainage from wound or site of previous infection 4. Increased redness or warmth from wound or site of previous infection 5. Progressive pain at site of previous infection out of proportion to activity. In patients that have had a serious infection it is not uncommon to have good days and bad days and even within a day to have good periods and bad periods. Pain may increase with increased activity but should resolve when rested and the affected region is elevated. If pain is worsening and does not improve with rest and is progressive over several days please contact Dr. Bundy. documented in this encounterDischarge to Outside Facility - Elroy Angel RN - 07/26/2020 3:56 PM EDT Discharge to Outside Facility: director of sales marketing Unit: [id number] Discharge Unit Phone #: [phone] Transport Equipment/Life Support Measures Needed IV Access: PICC Single Lumen Non-Tunneled/Temporary 07/25/20 Right Basilic (Active) Clinical Indication Limited venous access 07/25/201999 Site Assessment Clean, Dry, Intact 07/26/20 075 Securement Method Stabilization device 07/26/20 075 Lumen 1 Status Patent 07/26/20 075 Lumen 1 Needleless Connector Change 07/25/20 07/26/20 075 External Length vale (cm) 0 cm 07/25/20 1200 Extremity Circumference (cm) 27 cm 07/25/20 1200 Dressing Type CHG Impregnated Disk 07/25/20 1300 Dressing Last Changed 07/25/20 07/25/20 1300 Number of days: 1 Oxygen: via room air Pulse Oximeter: SpO2: 98 % (07/26/20 0012) Drains/Tubes: N egative Pressure Wound Therapy (Active) Therapy in Place NPWT (prevena) 07/26/20 1305 Dressing Type Black Foam 07/26/20 1305 Non-adherent Layer Petrolatum mesh 07/26/20 0750 Number of Black/ Villavicencio Foam Pieces Used 1 07/26/20 1305 Mode Continuous 07/26/20 1500 Target Pressure (mmHg) 125 07/26/20 1305 Canister Changed No 07/26/20 1305 Dressing Last Changed 07/26/20 07/26/20 1500 Output (mL) 0 mL 07/26/20 1500 Number of days: 4 Precautions/Positioning: Precautions: Fall risk, Isolation (07/26/20 0743) Vital Signs and Patient Condition At Time of Transfer Vitals: Vitals: 07/26/20 0934 BP: 113/71 Pulse: 98 Resp: Temp: Mental Status: (WDL = Within Defined Limits) Orientation Level: Oriented to person, Oriented to place, Oriented to situation (07/26/20 075) Cognition: Appropriate judgement, Appropriate safety awareness, Appropriate attention/concentration, Developmental delay (07/26/20 075) Communication: Verbal (07/26/20749) Pain: Pain Assessment %%: 0-10 (07/26/20 1303) Pain Score %%: 7 () PAINAD Score: 0 (07/26/20 0232) Nursing Summary Activities of Daily Living: Mobility: Slightlylimited (07/26/20 0750) Activity: Chairfast (07/26/20 0750) Sensory Aides: Elimination: Stool Occurrence: 1 (07/26/20 1051) Urinary Incontinence: No (07/26/20 0750) Bowel Incontinence: No (07/26/20 1051) Nutrition: Does the pt require assistance with eating?: Able to feed self (07/26/20 0800) Skin Condition / Wounds: Negative Pressure Wound Therapy (Active) Therapy in Place NPWT (Prevena) 07/26/20 1305 Dressing Type Black Foam 07/26/20 1305 Non-adherent Layer Petrolatum mesh 07/26/20 0750 Number of Black/ Villavicencio Foam Pieces Used 1 07/26/20 1305 Mode Continuous 07/26/20 1500 Target Pressure (mmHg) 7563307/26/20 1305 Canister Changed No 07/26/20 1305 Dressing Last Changed 07/26/20 07/26/20 1500 Output (mL) 0 mL 07/26/20 1500 Number of days: 4 Wound 11/27/19 Left;Lateral Hip (Active) Number of days: 242 Wound 07/21/20 Lateral Thigh (Active) Wound Image 07/21/20 1301 Wound Assessment Dressing change not due 07/22/20 1204 Deepa-wound Assessment Clean, Dry, Intact 07/22/20 1024 Drainage Amount Small 07/22/20 1024 Drainage Description Serosanguineous 07/22/20 1204 Dressing Type Other (Comment) 07/22/20 1204 Specialty Dressing Type Foam (Hydrophilic) 07/22/20 1204 Dressing Status/ Intervention Intact;Old drainage 07/22/20 1204 Dressing Last Changed 07/22/20 07/22/20 1024 Number of days: 5 Wound 07/22/20Left Hip/ Trochanter (Active) Wound Assessment Dressing change not due 07/25/201999 Deepa-wound Assessment Clean, Dry, Intact 07/25/201999 Closure Other (Comment) 07/25/201999 Support Abduction pillow 07/24/20 2018 Drainage Amount None 07/25/201999 Drainage Description Sanguineous 07/25/201999 Dressing Type Specialty dressing 07/25/201999 Specialty Dressing Type NPWT 07/25/201999 Dressing Status/ Intervention Clean, Dry, Intact 07/25/201999 Dressing Last Changed 07/22/20 07/25/201999 Number of days: 4 Signed By: ELROY Aguilarectronically signed by Elroy Mcbride RN at 07/26/2020 3:56 PM EDT Discharge to Outside Facility - Shalonda Jamison RN - 07/26/2020 9:09 AM EDT Discharge to Outside Facility: Certified Dental Assistant Sal Barnes Date: [id number] Age: 30 y.o. Sex: male Gender: male Admit Date/Time: 07/21/2020 12:53 PM Rationale For Transfer: Change in Level of Care Planning For Transfer Discharge Date: 07/26/2020 at 4:00 pm Discharge Disposition: USP facility Method of Transport: BLS transport Receiving Facility: [facility] Person Accepting: [place] marketing support coordinator Report called to Charge orcare RN at: [phone] Accepting Physician: Per facility Referring Provider Pager #: Provider RoleSpecialty Pager Margaret Gomez MD Attending Provider Orthopedic Surgery [phone] Records Sent Demographic information Discharge to Outside Facility form Discharge summary H&P Progressnotes (may include op notes, procedure notes, therapy notes, consults) Radiology reports Lab reports Medication administration record Signed By: SHALONDA PHELPS RN BSN [facility] Additional Instructions Bev Ashby NP - 07/24/2020 DISCHARGE INSTRUCTIONS Surgeon: Surg briseida(s) and Role: * Margaret Gomez MD - Primary * Terell Souza MD - Resident - Assisting * Logan Castanon MD - Fellow * Kaitlynn Brar PA Surgical procedure: Procedure(s): REVISION OF INFECTED TOTAL HIP ARTHROPLASTY; BOTH COMPONENTS,WITH OR WITHOUT AUTOGRAFT OR AL LOGRAFT Prosthetic specifics are available [facility] After surgery, you are at riskfor developing blood clots. This is a serious health condition that could cause disability or .In order to decrease this risk, there are several things you can do. You can avoid staying in thesame position for extended periods, do not smoke, and stay well hydrated. In addition, you have been prescribed the following medication to prevent blood clots. It is very important that you take all of this medication as prescribed: Lovenox 40 mg daily for 30 days. NEW MEDICATIONS: For ALL medication refill requests, please call the Orthopedic Clinic Triage Line Wednesday- Wednesday between 8:30am 4:30pm at [phone]. Medications will NOT be refilled after office hours. Acetaminophen (Tylenol)- should be taken 1000mg every 8 hours for pain relief. Do not exceed 3,000mg in a 24 hour period.You are encouraged to take this for fourteen days. Miralax and Senokot-S- are being prescribed for co nstipation that commonly occurs while taking narcotic pain medications. You may get these medications over the counter. Hold if diarrhea occurs. Narcotic pain medication - Dilaudid 2-4mg Pain Scale: Take 2 mg for pain 4-6/10 pain, take 4 mg for pain 7-10/10 pain. You should decrease your narcotic use over the next 7 days as your pain level decreases. For example: Day # of tablets Frequency 1 1-2 Every 4 hours, as needed for pain 2 1-2 Every 4 hours, as needed for pain 3 1-2 Every 4 hours, as needed for pain 4 1 Every 6 hours, as needed for pain 5 1 Every 8 hours, as needed for pain 6 1 Every 8 hours, as needed for pain 7 1 Every 12 hours, as needed for pain ACTIVITY INSTRUCTIONS Weight bearing status: No weight bearing on your surgical extremity. Posterior hip precautions have also been recommended by your surgeon. Do NOT drive until you are off narcotics AND you have been cleared by your surgeon. INCISION CARE ? Wash your hands with soap and water before touching your bandage or incision. Leave Prevena suction dressing in place for 7 days. (You will notice all 7 green lights around the power button on the machine will have gone out.) You should then remove the dressing at that point and repalce it with aquacel dressing. Aquacel dressing can be kept for 10 days unless you have to remove it due to drainage. If aquacel need to be removed before 10 days, please replace with gauze and tegaderm dressing. If you have any issues with the pump (beeping, leaking, etc.) you can call [employer] [employer] support at . If the drainage container is full, replace with the extra container sent with patient. When showering the incision must be covered with a waterproof dressing (ex.Tegaderm or Aquacel). Once the sydney/sutures are removed, the waterproof dressing is no longer necessary and the wound may be washed with soap and water. Do not soak in a bath tub, hot tub, pool, akins or other body of water until 21 days after your surgery and your incision is completely dry and healed. Your sutures or sydney must be removed in approximately 14-21 days from the day of your surgery (unless you have dissolvable sutures or have been instructed otherwise). They can be removed in your surgeons office or your primary medical provider if they are willing to remove them. Always keep the incision clean and dry until the sydney/sutures are removed. If there is drainage from the incision youmust keep it covered with gauze and tegaderm at all times until the drainage stops. If you are having increased drainage, redness, swelling, or concerns about your incision contact the triage line at [phone] during business hours Wed - Wed between 8:30 am to 4:30 pm or the orthopedic resident extrusion former during nights and weekends at [phone]. Itching around the wound can be a sign of healing. Call your surgeon if it becomes intolerable. ADDITIONAL INSTRUCTIONS If you smoke, we strongly recommend that you do not smoke. If you continue to smoke you increase your risk of developing an infection and delay wound healing . Eat a well-balanced diet to help improve healing of your wound. We also recommend that you supplement your diet with high protein shakes, such as Boost. If you are diabetic, you should use a low sugar option, such as Glucerna. URGENT CARE ISSUES Nausea, vomiting, or chills Numbness or weakness Bleeding, redness, swelling, pain or drainage from surgical incision Bowel or bladder dysfunction Severe pain Temperature greater than 101.0 F(38.3 C) degrees Should any of the above symptoms occur, you will need urgent medical advice. You may contact the Orthopedic Triage Desk at [phone] Wednesday-Wednesday during office hours. You can also be evaluated at oneof the Orthopedic Urgent Care Clinics listed below. After hours you may call the hospital at [phone] and ask for the orthopedic resident extrusion former. For a life-threatening emergency, call 911. If youhave a medical issue related to your surgery that needs to be addressed you may access care at one of the facilities below. Please call or refer to their websites for hours of operation. [facility] [address] [place] [address] [facility] [address] [place], [place] [address] [facility] [place] [address] [place] [address] FOLLOW UP APPOINTMENT: Your follow up appointment is scheduled. If you wish to reschedule it please call [phone]. documented in this encounterPatient Instructions Yury Parra PA - 01/04/2020 11:30 AM EST- Continue IV cefazolin through01/07 then stop. The facility will remove the PICC at that time. - On 01/08, START Keflex 1g TID x 6 weeks (through February 18) - Return in 4 weeks. Please contact me with questions or concerns. JULIET Rogel-C [phone] documented in this encounterDischarge to Outside Facility - Malick Cadet RN - 12/01/2019 11:54 AM EST 2Discharge to Outside Facility: RN Report called to [facility] by Malick PARIKH at 1215 Discharge Unit: [id number] Discharge Unit Phone #: [phone] Transport Equipment/Life Support Measures Needed IV Access: PICC Single Lumen Non-Tunneled/Temporary 11/30/19 Left Brachial (Active) Site Assessment Clean, Dry, Intact 11/30/2019 8:18 PM Joint Stabilization Yes 11/30/2019 8:18 PM Securement Method Stabilization device 11/30/2019 8:18 PM Line Status Blood return noted;Patent 11/30/2019 8:18 PM Lumen 1 Needleless Connector Change 11/30/19 11/30/2019 8:18 PM External Length vale (cm) 1 cm 11/30/2019 12:00 PM Extremity Circumference (cm) 25 cm 11/30/2019 12:00 PM Dressing Type CHG Impregnated Dressing 11/30/2019 8:18 PM Dressing Status Clean, Dry, Intact 8:18 PM Dressing Last Changed 11/30/19 11/30/2019 8:18 PM Number of days: 1 Oxygen: via PulseOximeter: SpO2: 100 % (12/01/19825) Drains/Tubes: Precautions/Positioning: Precautions: Fall risk (12/01/19827) Vital Signs and Patient Condition At Time of Transfer Vitals: Vitals: 12/01/19825 BP: 119/63 Pulse: 102 Resp: 18 Temp: 36.8 C (98.3 F) Mental Status: (WDL = Within Defined Limits) Orientation Level: Oriented X4 (11/30/192017) Cognition: Impaired short term memory (11/30/192017) Communication: Verbal (11/30/192017) Pain: Pain Assessment %%: 0-10 (12/01/19199) Pain Score %%: 3(12/01/19199) Nursing Summary Activities of Daily Living: Mobility: Slightly limited (11/30/192017) Activity: Chairfast (11/30/192017) Sensory Aides: Elimination: Urinary Incontinence: No () Bowel Incontinence: No (11/30/19919) Nutrition: Does the pt require assistance with eating?:Able to feed self (11/30/192017) needs set up for meals Skin Condition / Wounds: Wound 11/27/19 Left;Lateral Hip (Active) Wound Assessment Dressing change not due 12/01/2019 12:35 AM Deepa-wound Assessment Intact;Dry 11/30/2019 8:18 PM Closure Other (Comment) 11/30/2019 8:18 PM Drainage Amount None 12/01/2019 12:35 AM Dressing Type Specialty dressing 12/01/2019 12:35 AM Specialty Dressing Type NPWT 11/30/19 8:18 PM Dressing Last Changed 11/27/19 11/30/2019 8:18 PM Dressing Status Intact;Old drainage;Dry 12/01/2019 12:35 AM Number of days: 4 (RN to validate provider order for wound care) Signed By: Malick Mejialectronically signed by Malick Richardson RN at 12/01/2019 12:08 PM EST Discharge to Outside Facility - Shalonda Jamison RN - 11/30/2019 2:27 PM EST Discharge to Outside Facility: Certified Dental Assistant Sal Barnes Date: [id number] Age: 29 y.o. Sex: male Gender: male Admit Date/Time: 11/27/2019 9:25 AM Rationale For Transfer: Change in Level of Care Planning For Transfer Discharge Date: 12-01-2019 at 12 noon Discharge Disposition:USP facility Method of Transport: ambulance Receiving Facility: [facility] Person Accepting: Julia Forte marketing support coordinator Report called to Charge or care RN at: [phone] [place] [phone]- Accepting Physician: Per facility Referring Provider Pager #: Provider RoleSpecialty Pager Augustus Khan MD Attending Provider Orthopedic Surgery [phone] Records Sent Demographic information Discharge to Outside Facility form Discharge summary H&P Progressnotes (may include op notes, procedure notes, therapy notes, consults) Radiology reports Lab reports Medication administration record Signed By: SHALONDA PHELPS RN BSN [facility] Additional Instructions Kaitlynn Brar PA - 11/28/2019 DISCHARGE INSTRUCTIONS Surgeon: Surgeon(s) and Role: * Augustus Khan MD - Primary * Giuseppe Fine MD - Resident - Assisting Surgical procedure: Procedure(s): REVISION OF TOTAL HIP ARTHROPLASTY; ACETABULAR COMPONENT ONLY, WITH OR WITHOUT AUTOGRAFT OR ALLOGRAFT Prosthetic specifics are available through [facility]. After surgery, you are at risk for developing blood clots. This is a serious health condition that could cause disability or . In order to decrease this risk, there are several things you can do. You can avoid staying in the same position for extended periods, do not smoke, and stay well hydrated. In addition, you have been prescribed the following medication to prevent blood clots. It is very important that you take all of this medication as prescribed: Lovenox 40 mg daily for 14 days. NEW MEDICATIONS: For ALL medication refill requests, please call the Orthopedic Clinic Triage Line Wednesday- Wednesday between 8:30am 4:30pm at [phone]. Medications will NOT be refilled after office hours. Acetaminophen (Tylenol)- should be taken 1000mg every 8 hours for pain relief. Do not exceed 3,000mg in a 24 hour period. You are encouraged to take this for thirty days. Gabapentin(Neurontin)- is being prescribed to reduce nerve related pain. You may continue this for thirty days. Meloxicam (Mobic)- is in a class of medication called NSAIDs (non steroidal antiinflammatory drug).DO NOT TAKE other NSAID medications while on Meloxicam. For example Advil, Aleve, Motrin, Ibuprofen and BC powder are all NSAIDs. You may continue this for thirty days. Protonix- to reduce the risk of s tomach irritation, ulcers, and bleeding that can occur when patients take Aspirin and Meloxicam together. You can substitute Protonix for another PPI medication found in drug stores. Ask the pharmacistto assist you. You should continue this while on Mobic. Miralax and Senokot-S- are being prescribed for constipation that commonly occurs while taking narcotic pain medications. You may get these medications over the counter. Hold if diarrhea occurs. Narcotic pain medication - Oxycodone 5-15mg Pain Scale: Take 5 mg for 4-5/10 pain, take 10 mg for 6-8/10 pain, take 15 mg for 9-10/10 pain. You should decrease your narcotic use over the next 7 days as your pain level decreases. For example: Day # of tablets Frequency 1 1-3 Every 4 hours, as needed for pain 2 1-2 Every 4 hours, as needed for pain 3 1-2Every 4 hours, as needed for pain 4 1 Every 6 hours, as needed for pain 5 1 Every 8 hours, as neededfor pain 6 1 Every 8 hours, as needed for pain 7 1 Every 12 hours, as needed for pain ACTIVITY INSTRU CTIONS Weight bearing status: Weight bearing as tolerated. Posterior hip precautions have also been recommended by your surgeon. Keep abduction brace on at all times Do NOT drive until you are off narcotics AND you have been cleared by your surgeon. INCISION CARE ? Wash your hands with soap and water before touching your bandage or incision. Your Aquacel Ag dressing, should remain in place for 10 days. You should remove the dressing after 10 days on 12/11/2019 When showering the incision must be covered with a waterproof dressing (ex.Tegaderm or Aquacel). Once the sydney/sutures are removed, the waterproof dressing is no longer necessary and the wound may be washed with soap and water. Donot soak in a bath tub, hot tub, pool, akins or other body of water until 21 days after your surgery and your incision is completely dry and healed. Your sutures or sydney must be removed in approximately 14-21 days from the day of your surgery (unless you have dissolvable sutures or have been instructed otherwise). They can be removed in your surgeons office or your primary medical provider ifthey are willing to remove them. Always keep the incision clean and dry until the sydney/suturesare removed. If there is drainage from the incision you must keep it covered with gauze and tegadermat all times until the drainage stops. If you are having increased drainage, redness, swelling, or concerns about your incision contact the triage line at [phone] during business hours Mon - Fri between 8:30 am to 4:30 pm or the orthopedic resident extrusion former during nights and weekends at [phone]. Itching around the wound can be a sign of healing. Call your surgeon if it becomes intolerable. Please wear your HARDIK hose during the day for 8-10 hours and remove each night. ADDITIONAL INSTRUCTIONS If you smoke, we strongly recommend that you do not smoke. If you continue to smoke you increase your risk of developing an infection and delay wound healing . Eat a well-balanced diet to help improve healing of your wound. We also recommend that you supplement your diet with high protein shakes, such as Boost. If you are diabetic, you should use a low sugar option, such as Glucerna. URGENT CARE ISSUES Nausea, vomiting, or chills Numbness or weakness Bleeding, redness, swelling, pain or drainage from surgical incision Bowel or bladder dysfunction Severe pain Temperature greater than 101.0 F(38.3 C) degrees Should any of the above symptoms occur, you will need urgent medicaladvice. You may contact the Orthopedic Triage Desk at [phone] Wednesday-Wednesday during office hours. You can also be evaluated at one of the Orthopedic Urgent Care Clinics listed below. After hours you may call the hospital at [phone] and ask for the orthopedic resident extrusion former. For a life-threatening emergency, call 911. If you have a medical issue related to your surgery that needs to be addressed you may access care at one of the facilities below. Please call or refer to their websites for hours of operation. [facility] [address] [place] [address] [facility] [address] [place], [place] [id number] [facility] [place] [address] [facility] [place] [place] [address] [facility] [address] [place] [address] FOLLOW UP APPOINTMENT: Yourfollow up appointment is scheduled. If you wish to reschedule it please call [phone]. documented in this encounterPatient Instructions Asya Samano PA - 11/10/2019 8:00 AM ESTFormatting of this note mightbe different from the original. Medication instructions prior to procedure: Medication Sig INSTRUCTIO NS acetaminophen (TYLENOL) 325 MG tablet Take 650 mg by mouth every 4 (four) hours as needed forPain TAKE day of procedure, if needed bisacodyl (DULCOLAX) 5 mg EC tablet Take 5 mg by mouth once daily as needed for Constipation TAKE day of procedure bisacodyl (DULCOLAX, BISACODYL,) [address] 10 mg rectally once daily as needed for Constipation DO NOT TAKE day of procedure calcitonin, salmon, (FORTICAL) 200 unit/actuation nasal spray 1 spray alternating nostrils in the morning TAKE day of procedure calcium carbonate-vitamin D3 ([place] CALCIUM-VIT D3) 500 mg(1,250mg) -200 unit tablet Take 1 tablet by mouth 2 (two) times daily with meals DO NOT TAKE day of procedure cholecalciferol, vitamin D3, (VITAMIN D3) 4,000 unit Cap Take 4,000 Units by mouth once daily DO NOT TAKE day of procedure deferasirox (EXJADE) 500 MG disintegrating tablet Take 1,000 mg by mouth once daily TAKE day of procedure epoetin bryan (PROCRIT) 40,000 unit/mL injection Inject 40,000 Units into the vein once a week DO NOT TAKE day of procedure folic acid (FOLVITE) 1 MG tablet Take 1 mg by mouth once daily DO NOT TAKE day of procedure hydroxyurea (HYDREA) 500 mg capsuleTake 500 mg by mouth once daily TAKE day of procedure metoprolol succinate (TOPROL-XL) 25 MG XL tablet Take 25 mg by mouth once daily TAKE day of procedure mirtazapine (REMERON) 15 MG tablet Take 15 mg by mouth nightly TAKE night before procedure multivitamin/iron/folic acid (CERTAVITE-ANTIOXIDANT ORAL) Take 1 tablet by mouth once daily STOP taking 7 days prior to procedure oxyCODONE (DAZIDOX) 10 mg immediate release tablet Take 10 mg by mouth every 4 (four) hours as needed for Pain TAKE day of procedure, if needed polyethylene glycol 3350 (MIRALAX ORAL) Take 17 g by mouth once daily as needed DO NOT TAKE day of procedure tamsulosin (FLOMAX) 0.4 mg capsule Take 0.4 mg by mouth once daily Take 30 minutes after same meal each day. TAKE day of procedure documented in this encounter1. Pain in bilateral legs XR, femur 2. Hip pain XR, pelvis CBC w/ diff erythrocyte sedimentation rate by westergren method BMP, serum or plasma C-reactive protein, qualitative, serum 3. History of total hip arthroplasty Discussion Note: None recorded. Patient educational handouts: No information available. Health Concerns Section Text Date Unknown
== END ==
LOC: RAD 13:00
PROVIDERS: ATTEND Internal Medicine Pulmonary Disease
DX: R91.1 Solitary pulmonary nodule (principal); I51.7 Cardiomegaly
CPT/HCPCS: 71250